=== PATIENT | female | born 1965 | race Caucasian/White ===

== ENCOUNTER 2019-04-13 09:55 | Emergency (ER) | payer OTHER, SELFPAY ==
[2019-04-13 10:43] VITALS: BP 162/90; PULSE 80; RESP 20; TEMP 36.4; O2SAT 97
--- NOTE | 2019-04-13 10:52 | ECG_ITS ---
Measurements Intervals [place] Rate: 69 P: 56 [place]: 146 QRS: 64 QRSD: 102 T: 60 QT: 391 QTc: 421 Interpretive Statements SINUS RHYTHM NORMAL ECG Electronically Signed On 04-14-2019 7:15:08 CDT by Jeffery Flores D.O.
[2019-04-13] MEDS: MECLIZINE HCL 25 MG TABLET PO (10:56)
[2019-04-13] MEDS: LORAZEPAM INJ 2 MG/ML VIAL 0.5 MG IV PUSH (10:57)
[2019-04-13 11:09] LABS: Hematocrit 36.6 % (35.0-49.0); Hemoglobin 12.7 g/dL (12.0-15.0); Mean Corpuscular HGB Conc 34.7 g/dL (32.0-36.0); Mean Corpuscular Hemoglobin 29.3 pg (27.0-31.0); Mean Corpuscular Volume 84.5 fL (78.0-102.0); Mean Platelet Volume 8.7 fl (9.2-11.8); Platelet Count Result 308 K/mm3 (150-420); Red Blood Count 4.33 M/mm3 (4.20-5.40); Red Cell Distribution Width 12.4 % (11.6-14.4); White Blood Count 5.4 K/mm3 (4.8-10.8)
[2019-04-13 11:25] LABS: Alanine Aminotransferase 27 U/L (14-59); Albumin Level 3.9 g/dL (3.4-5.0); Alkaline Phosphatase 143 U/L (46-116); Anion Gap 9.8 mmol/L (7-16); Aspartate Amino Transferase 21 U/L (15-37); Bilirubin,Total 0.4 mg/dL (0.00-1.00); Blood Urea Nitrogen 7 mg/dL (7-18); Calcium 9.3 mg/dL (8.5-10.1); Carbon Dioxide 28 mmol/L (21-32); Chloride 97 mmol/L (98-108); Estimated Glomerular Filt Rate > 60; Glucose 96 mg/dL (70-99); Osmolality Calculated 270 mOsm/kg (285-295); Potassium 3.8 mmol/L (3.5-5.1); Sodium 131 mmol/L (136-145); Total Protein 7.4 g/dL (6.4-8.2)
--- NOTE | 2019-04-13 11:41 | ED.GENADULT ---
HPI - General Adult General Chief complaint: Neuro Symptoms/Deficit Stated complaint: dizzy, headache, blurred vision Source: patient Mode of arrival: ambulatory Limitations: no limitations History of Present Illness HPI narrative: Patient presents with history of anxiety depression and while going to [employer] today had an episode where she felt faint with dizziness with hand tingling. Patient has been under increased stress secondary to situation with her daughter. Currently there is some dizziness and anxiety which has improved with meclizine and with Ativan. There is no chest pain or chest tightness, there is no fever chills no nasal discharge no abdominal pain no dysuria no flank pain no diarrhea constipation. Patient also complaining of mild headache with some dizziness with no nausea or vomiting. Onset (ago): hour(s) Location: head and upper extremity Radiation: non-radiation Severity: mild Quality: burning Pain Consistency: intermittent and other (dizziness) Relieving factors: immobilization Exacerbating factors: movement Associated symptoms: headaches Related Data Home Medications Medication Instructions Recorded Confirmed albuterol sulfate 1 - 2 puff INHALATION Q4-5H PRN 04/13/19 04/13/19 alprazolam 1 mg PO PRN PRN 04/13/19 04/13/19 furosemide 20 mg PO DAILY 04/13/19 04/13/19 lisinopril 20 mg PO DAILY 04/13/19 04/13/19 olanzapine 10 mg PO DAILY 04/13/19 04/13/19 omeprazole magnesium [Prilosec OTC] 20 mg PO DAILY 04/13/19 04/13/19 oxcarbazepine 1,200 mg PO DAILY 04/13/19 04/13/19 Allergies Allergy/AdvReac Type Severity Reaction Status Date / Time No Known Allergies Allergy Unknown Verified 04/22/07 07:20 Review of Systems Review of Systems: All systems reviewed & are unremarkable except as noted in HPI and below PMFSH Past Medical History Medical History Anxiety Depression Exam Const: General: no acute distress Orientation/consciousness: patient oriented x3 HENMT: Head: normal to inspection Eyes: Pupils: Equal, round and reactive pupils present Neck: Neck: normal visual inspection Chest: Chest palpation & inspection: normal inspection of the chest Resp: Effort & Inspection: normal respiratory effort Cardio: Rate: regular rate Rhythm: regular rhythm GI: GI Palp: Yes Soft to palpation : General: Yes no CVA tenderness Skin: General skin exam: normal color Rashes: no rashes Neuro: General: patient oriented x3, moves all extremities and no meningeal signs Extrem: General: normal to inspection Course Vital Signs Vital signs: Vital Signs Temperature 36.4 C 04/13/19 10:43 Pulse Rate 80 04/13/19 10:43 Respiratory Rate 20 04/13/19 10:43 Blood Pressure 162/90 H 04/13/19 10:43 Pulse Oximetry 97 04/13/19 10:43 Temperature 36.4 C 04/13/19 10:43 Pulse Rate 80 04/13/19 10:43 Respiratory Rate 20 04/13/19 10:43 Blood Pressure 162/90 H 04/13/19 10:43 Pulse Oximetry 97 04/13/19 10:43 Medical Decision Making Vital Signs Vital Signs: Vital Signs Temperature 36.4 C 04/13/19 10:43 Pulse Rate 80 04/13/19 10:43 Respiratory Rate 20 04/13/19 10:43 Blood Pressure 162/90 H 04/13/19 10:43 Pulse Oximetry 97 04/13/19 10:43 Temperature 36.4 C 04/13/19 10:43 Pulse Rate 80 04/13/19 10:43 Respiratory Rate 20 04/13/19 10:43 Blood Pressure 162/90 H 04/13/19 10:43 Pulse Oximetry 97 04/13/19 10:43 Lab Data Result diagrams: 04/13/19 11:05 04/13/19 11:05 Labs: Lab Results 04/13/19 04/13/19 Range/Units 11:05 11:05 WBC 5.4 (4.8-10.8) K/mm3 RBC 4.33 (4.20-5.40) M/mm3 Hgb 12.7 (12.0-15.0) g/dL Hct 36.6 (35.0-49.0) % MCV 84.5 (78.0-102.0) fL MCH 29.3 (27.0-31.0) pg MCHC 34.7 (32.0-36.0) g/dL RDW 12.4 (11.6-14.4) % Plt Count 308 (150-420) K/mm3 MPV 8.7 L (9.2-11.8) fl Sodium 131 L (136-145) mm
[2019-04-13 12:14] VITALS: BP 134/72; PULSE 74; O2SAT 99
== END 2019-04-13 12:15 | disposition home or self-care (01) ==
PROVIDERS: Emergency Provider Emergency Medicine; PCP Physician Assistant
DX: F32.9 Major depressive disorder, single episode, unspecified (principal); F41.9 Anxiety disorder, unspecified; R42 Dizziness and giddiness
CPT/HCPCS: 36415; 80053; 85027; 93005; 96374; 99283; 99284; A9270; J2060

== ENCOUNTER 2019-04-18 17:39 | Emergency (ER) | payer OTHER, SELFPAY ==
--- NOTE | ~2019-04-18 | CT_ITS ---
EXAMINATION: CT BRAIN W/O DATE: 04/18/2019 18:29 INDICATION: Dizziness. Left arm tingling. Headache. TECHNIQUE: Computed tomography (CT) of the head was performed without intravenous contrast. The dose- length product was 605.33 mGy-cm. Automated exposure control and iterative reconstruction technique w ere employed. COMPARISON: CT dated 06/28/2027 FINDINGS: Normal brain parenchymal volume for age. Normal frank-white differentiation. No acute intrac ranial hemorrhage, infarction, mass or mass effect. No ventriculomegaly or midline shift. Midline sagittal images demonstrate a normal corpus callosum, c raniovertebral junction and sella turcica. Basilar cisterns are patent. Paranasal sinuses and mastoids are pneumatized. No depressed skull fractures. IMPRESSION: 1. No acute intracranial abnormality. Reviewed, dictated and finalized at location A.
--- NOTE | ~2019-04-18 | XR_ITS ---
XR chest 2V 04/18/2019 18:29 Indication: Dizziness. Shortness of breath. COPD. Procedure: 2 view chest Comparison: Comparison to multiple prior studies sequentially, with oldest reviewed study dated 11/06. Findings: Heart size normal. Bibasilar atelectasis. No focal pneumonia, pulmonary edema, pleural effu sheryl or pneumothorax. No acute osseous abnormality. Impression: 1: Bibasilar atelectasis. Reviewed, dictated and finalized at location A. Impression: 1: Bibasilar atelectasis.
[2019-04-18 17:53] VITALS: BP 134/88; PULSE 90; RESP 24; TEMP 36.6; O2SAT 97
--- NOTE | 2019-04-18 18:06 | ECG_ITS ---
Measurements Intervals [place] Rate: 77 P: 34 [place]: 150 QRS: -6 QRSD: 96 T: 45 QT: 375 QTc: 427 Interpretive Statements SINUS RHYTHM BORDERLINE R WAVE PROGRESSION, ANTERIOR LEADS BORDERLINE T WAVE ABNORMALITY- ANTERIOR LEADS BASELINE ARTIFACT- I, II, III, AVR, AVL, AVF BORDERLINE ECG Electronically Signed On 04-19-2019 10:20:37 CDT by Jeffery Flores D.O.
--- NOTE | 2019-04-18 18:09 | ED.GENADULT ---
HPI - General Adult General Chief complaint: Psychiatric Symptoms Stated complaint: lightheaded/tingling in arm/numbness in arm Time Seen by Provider: 04/18/19 17:45 Source: patient Mode of arrival: ambulatory Limitations: no limitations History of Present Illness HPI narrative: Palma is a 53-year-old female patient. She presents ambulatory to the emergency room. She states that she has been feeling dizzy. She was seen here a week ago for similar symptoms and was given prescription for meclizine 25 mg p.o. t.i.d. p.r.n.. She states that she has been taking this once or twice a day. 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 She had numbness to both arms with some tingling. Her PCP is Rhianna Shepard. Rhianna has scheduled Palma for a CT of the head next Sunday. We will get it done now. She also complained of some chest discomfort which is not there anymore. She denies any blurred vision or diplopia. She has no abdominal pain. There is no nausea or vomiting. No cough or fever. She states that she has not traveled anywhere. She has no sick contacts. No urinary symptoms. Palma has history of asthma and COPD. She is a former smoker. She smoked 1 and half packs of cigarettes per day for 10 years. She stopped smoking 2 years ago. She has a history of drug abuse in the past. She quit about 10-15 years ago. She says that she used to use cocaine and she used it for 20 years but quit about 10-15 years ago. She has had a cholecystectomy, tubal ligation, hysterectomy. She still has 1 ovary. 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 Please see details in HPI narrative) Radiation: non-radiation Severity: mild Quality: sharp Pain Consistency: intermittent Relieving factors: other ( spontaneous relief. No pain now.) Associated symptoms: other ( Please see HPI narrative for details) Related Data Home Medications Medication Instructions Recorded Confirmed albuterol sulfate 1 - 2 puff INHALATION Q4-5H PRN 04/13/19 04/18/19 alprazolam 1 mg PO PRN PRN 04/13/19 04/18/19 furosemide 20 mg PO DAILY 04/13/19 04/18/19 lisinopril 20 mg PO DAILY 04/13/19 04/18/19 olanzapine 10 mg PO DAILY 04/13/19 04/18/19 omeprazole magnesium [Prilosec OTC] 20 mg PO DAILY 04/13/19 04/18/19 oxcarbazepine 1,200 mg PO DAILY 04/13/19 04/18/19 Allergies Allergy/AdvReac Type Severity Reaction Status Date / Time No Known Allergies Allergy Unknown Verified 04/22/07 07:20 Review of Systems Review of Systems: All systems reviewed & are unremarkable except as noted in HPI and below Constitutional: Constitutional: Reports as per HPI, Reports no additional constitutional complaints, Denies chills, Denies fever(s) and Denies weakness Eyes: Eyes: Reports as per HPI, Reports no additional eye complaints and Denies change in vision ENT: Reports system reviewed and no additional complaints, except as documented, Denies dysphagia, Denies vertigo, Reports dizziness, Denies nasal congestion and Denies sore throat Cardiovascular: Cardiovascular: Reports as per HPI, Reports no additional cardiovascular complaints, Reports chest pain and Denies radiating jaw, neck or arm pain Respiratory: Respiratory: Reports as per HPI, Reports no additional respiratory complaints, Denies cough and Denies dyspnea Gastrointestinal: Gastrointestinal: Reports as per HPI, Reports no additional gastrointestinal complaints, Denies abdominal pain, Denies nausea and Denies vomiting Genitourinary: Genitourinary: Reports no additional female genitourinary complaints, Denies hematuria and Denies dysuria Musculoskeletal: Musculoskeletal: Reports no additional musculoskeletal complaints, Denies myalgias and Denies muscle cramps Integumentary/Breasts: Skin/Breast: Reports system reviewed and no additional complaints, except as docu, Denies erythema and Denies rash Neurologic: Reports system reviewed and no additional complaints, except as documented, Reports as per
[2019-04-18] MEDS: LORAZEPAM 1 MG TABLET PO (18:29)
[2019-04-18 18:36] LABS: Add Urine Microscopic? NO; Appearance Urine Clear (Clear); Bilirubin Urine Negative (Negative); Blood Urine Negative (Negative); Color Urine Yellow (Yellow); Glucose Urine UA Negative (Negative); Ketones Urine Negative (Negative); Leukocyte Esterase Ur Negative LEU/UL (Negative); Nitrate Urine Negative (Negative); Protein Urine Negative (Negative); Urobilinogen Urine 0.2 mg/dL (0.2-1.0)
[2019-04-18 18:41] LABS: Basophils Absolute Auto 0.01 K/mm3 (0.00-0.10); Basophils Percent Auto 0.2 % (0.0-1.0); Eosinophils Absolute Auto 0.15 K/mm3 (0.02-0.50); Eosinophils Percent Auto 2.3 % (1.0-6.0); Hemoglobin 12.9 g/dL (12.0-15.0); Immature Granulocyte Absolute 0.01 K/mm3 (0.00-0.00); Immature Granulocyte Percent A 0.2 % (0.0-0.0); Lymphocytes Absolute Auto 2.09 K/mm3 (1.10-4.50); Lymphocytes Percent Auto 31.7 % (18.0-42.0); Mean Corpuscular HGB Conc 35.8 g/dL (32.0-36.0); Mean Corpuscular Hemoglobin 29.9 pg (27.0-31.0); Mean Corpuscular Volume 83.3 fL (78.0-102.0); Mean Platelet Volume 9.4 fl (9.2-11.8); Monocytes Absolute Auto 0.54 K/mm3 (0.10-0.90); Monocytes Percent Auto 8.2 % (2.0-11.0); Neutrophils Absolute Auto 3.8 K/mm3 (1.7-7.2); Neutrophils Percent Auto 57.4 % (50.0-70.0); Platelet Count Result 368 K/mm3 (150-420); Red Blood Count 4.32 M/mm3 (4.20-5.40); Red Cell Distribution Width 12.6 % (11.6-14.4); White Blood Count 6.6 K/mm3 (4.8-10.8)
[2019-04-18 18:47] LABS: Partial Thromboplastin Time 31.6 SEC (22.3-31.6)
[2019-04-18 18:50] LABS: Influenza Control Valid (Valid)
[2019-04-18 18:51] LABS: Amphetamine Screen Urine Negative (Negative); Barbiturate Screen Urine Negative (Negative); Benzodiazepines Screen Urine Negative (Negative); Cannabinoid Screen Urine Positive (Negative); Cocaine Screen Urine Negative (Negative); Methadone Screen Urine Negative (Negative); Opiate Screen Urine Negative (Negative); Phencyclidine Screen Urine Negative (Negative)
[2019-04-18 18:52] LABS: BNP < 5.0 pg/mL (0-100)
[2019-04-18 19:00] LABS: Alanine Aminotransferase 23 U/L (14-59); Albumin Level 3.7 g/dL (3.4-5.0); Alkaline Phosphatase 136 U/L (46-116); Anion Gap 15.1 mmol/L (7-16); Aspartate Amino Transferase 18 U/L (15-37); Bilirubin,Total 0.1 mg/dL (0.00-1.00); Blood Urea Nitrogen 11 mg/dL (7-18); Carbon Dioxide 24 mmol/L (21-32); Chloride 96 mmol/L (98-108); Creatine Kinase 247 U/L (26-192); Estimated Glomerular Filt Rate > 60; Glucose 111 mg/dL (70-99); Osmolality Calculated 272 mOsm/kg (285-295); Potassium 4.1 mmol/L (3.5-5.1); Sodium 131 mmol/L (136-145); Total Protein 7.2 g/dL (6.4-8.2)
[2019-04-18 19:02] LABS: Magnesium 1.9 mg/dL (1.8-2.4); Thyroid Stimulating Hormone 0.83 uIU/mL (0.36-3.74); Troponin I < 0.02 ng/mL (0.00-0.056)
[2019-04-18 19:34] LABS: Erythrocyte Sedimentation Rate 24 mm/hr (0-20)
[2019-04-18] MEDS: SODIUM CHLORIDE 0.9% IV 1,000 ML 999 ML IV CONT (19:34)
[2019-04-18 20:32] VITALS: BP 110/70
== END 2019-04-18 20:33 | disposition home or self-care (01) ==
PROVIDERS: Emergency Provider Surgery; PCP Physician Assistant
DX: R42 Dizziness and giddiness (principal); F41.9 Anxiety disorder, unspecified; E87.1 Hypo-osmolality and hyponatremia; J44.9 Chronic obstructive pulmonary disease, unspecified; I10 Essential (primary) hypertension; Z87.891 Personal history of nicotine dependence
CPT/HCPCS: 36415; 70450; 71046; 80053; 80307; 81003; 82550; 82553; 83735; 83880; 84443; 84484; 85025; 85610; 85652; 85730; 87804; 93005; 96360; 99283; 99284; A9270; J7030

== ENCOUNTER 2019-07-25 07:53 | Outpatient (CLI) | payer OTHER, SELFPAY ==
--- NOTE | ~2019-07-25 | XR_ITS ---
EXAMINATION: XR barium swallow DATE: 07/25/2019 08:44 INDICATION: Dysphagia. TECHNIQUE: The patient drank thick barium, gas-producing crystals, and thin barium. Fluoroscopy of th e hypopharynx and esophagus was performed. Fluoroscopy exposure time was 0.8 minutes. The total numbe r of images was 270. The dose-area product was 2.36 Gy-cm^2. COMPARISON: None. FINDINGS: There is no mass or stricture of the esophagus. Esophageal motility is normal. There is no hiatal hernia. There was no gastroesophageal reflux with provocative maneuvers. IMPRESSION: 1. Normal esophagram. Reviewed, dictated and finalized at location A. IMPRESSION: 1. Normal esophagram.
== END 2019-07-25 07:54 | disposition home or self-care (01) ==
PROVIDERS: PCP Physician Assistant; Visit Provider Otolaryngology
DX: R13.10 Dysphagia, unspecified (principal)
CPT/HCPCS: 74220

== ENCOUNTER 2019-09-05 15:09 | Observation (INO) | payer OTHER, SELFPAY ==
--- NOTE | ~2019-09-05 | XR_ITS ---
XR chest 1V portable 09/05/2019 16:25 Indication: History of CHF. Weakness. Procedure: AP portable chest Comparison: Comparison to multiple prior studies sequentially, with oldest reviewed study dated 05/16. Findings: Heart size normal. No focal air space disease, pulmonary edema, pleural effusion or suspect ed pneumothorax. No acute osseous abnormality. Impression: 1: No acute cardiopulmonary disease. Reviewed, dictated and finalized at location A. Impression: 1: No acute cardiopulmonary disease.
--- NOTE | 2019-09-05 15:17 | ECG_ITS ---
Measurements Intervals [place] Rate: 72 P: 46 [place]: 156 QRS: 35 QRSD: 97 T: 45 QT: 385 QTc: 424 Interpretive Statements SINUS RHYTHM NORMAL ECG Electronically Signed On 09-05-2019 16:35:15 CDT by Jeffery Flores D.O.
[2019-09-05 15:20] VITALS: BP 125/81; PULSE 77; RESP 18; TEMP 36.7; O2SAT 99
[2019-09-05 15:24] LABS: Add Urine Microscopic? YES; Appearance Urine Clear (Clear); Bilirubin Urine Negative (Negative); Blood Urine Negative (Negative); Color Urine Yellow (Yellow); Glucose Urine UA Negative (Negative); Ketones Urine Negative (Negative); Leukocyte Esterase Ur Trace LEU/UL (Negative); Nitrate Urine Negative (Negative); Protein Urine Negative (Negative); Specific Grav Ur 1.015 (1.010-1.020); Urobilinogen Urine 0.2 mg/dL (0.2-1.0); pH Urine 6.5 (5.0-8.0)
--- NOTE | 2019-09-05 15:28 | ED.GENADULT ---
HPI - General Adult General Source: patient Mode of arrival: ambulatory Limitations: no limitations History of Present Illness HPI narrative: 54-year-old female with hypertension, GERD, Bipolar Disorder and hx of CHF has had postprandial watery diarrhea for the last 6 days unresponsive to Imodium. There has been no blood, mucous in the stool, floating or unusual odor. The last 3 days she has been very tired, lightheaded (no vertigo) made worse with standing. When she stands up she also sees stars. Early this morning she had an episode where she was cool and clammy that lasted for about 10 minutes. She has been drinking sweetened (non-diet) lemonade for the last week. She denies abdominal pain. She has been urinating less than her usual. Today she has a very mild tension pain in her head. She has had neck soreness since last p.m.. Related Data Home Medications Medication Instructions Recorded Confirmed albuterol sulfate 1 - 2 puff INHALATION Q4-5H PRN 04/13/19 09/05/19 alprazolam 1 mg PO PRN PRN 04/13/19 09/05/19 furosemide 20 mg PO DAILY 04/13/19 09/05/19 lisinopril 20 mg PO DAILY 04/13/19 09/05/19 olanzapine 10 mg PO DAILY 04/13/19 09/05/19 omeprazole magnesium [Prilosec OTC] 20 mg PO DAILY 04/13/19 09/05/19 oxcarbazepine 1,200 mg PO DAILY 04/13/19 09/05/19 Allergies Allergy/AdvReac Type Severity Reaction Status Date / Time No Known Allergies Allergy Unknown Verified 07/23/19 09:59 Review of Systems Constitutional: Constitutional: Denies chills and Denies fever(s) Eyes: Eyes: Reports no additional eye complaints ENT: Denies dysphagia, Denies nasal congestion and Denies sore throat Cardiovascular: Cardiovascular: Denies chest pain Respiratory: Respiratory: Reports cough (has occasional cough, chronic) and Denies dyspnea Gastrointestinal: Gastrointestinal: Denies abdominal pain, Denies nausea and Denies vomiting Genitourinary: Genitourinary: Denies dysuria Musculoskeletal: Musculoskeletal: Reports no additional musculoskeletal complaints Integumentary/Breasts: Skin/Breast: Denies rash Neurologic: Reports headache(s) Endocrine: Endocrine: Reports polydipsia PMFSH Past Medical History Medical History (Updated 09/06/19 @ 05:23 by Bryan Wheeler MD) Anxiety Asthma Congestive heart failure COPD (chronic obstructive pulmonary disease) Depression Hypertension Surgical History Surgical History History of cholecystectomy History of hysterectomy History of tubal ligation Family History Family History Father Heart disease Mother , Mother at age 60. Diabetes mellitus Social History Social History Smoking status: Former smoker Tobacco type: cigarettes Second hand tobacco smoke exposure: Yes Alcohol intake: never Substance use: never Substance use type: does not use Spiritual care concerns: No Exam Const: General: healthy appearing and no acute distress HENMT: Head: normal to inspection Mouth: Yes Normal oral and palatal mucosa present Eyes: Conjunctivae: conjunctival abnormality EOM: EOMs intact bilaterally Direct Ophthalmoscopy: no photophobia Neck: Neck: no lymphadenopathy Other: supple Chest: Chest palpation & inspection: normal inspection of the chest Resp: Auscultation: clear to auscultation bilaterally Cardio: Rate: regular rate Rhythm: regular rhythm Other: no JVD GI: GI Palp: No abdominal tenderness Auscultation: normal bowel sounds : General: Yes no CVA tenderness Back/Spine/Pelvis: Back: no CVA tenderness Skin: General skin exam: normal color Rashes: no rashes Neuro: General: patient oriented x3 and moves all extremities Extrem: General: normal to inspection and no edema Course Course Emergency Course: . Vital Signs Vital signs: Vital Signs Temperatur
[2019-09-05 15:32] LABS: Bacteria Urine Trace /hpf; RBC Urine None seen /hpf (0-2); Squamous Epithelial Cell Urine Moderate /hpf (Few); WBC Urine 0-3 /hpf (0-3)
[2019-09-05 15:45] VITALS: BP 116/70; PULSE 70
[2019-09-05 15:46] VITALS: BP 124/70; PULSE 80
[2019-09-05 16:04] LABS: Basophils Absolute Auto 0.02 K/mm3 (0.00-0.10); Basophils Percent Auto 0.3 % (0.0-1.0); Eosinophils Absolute Auto 0.07 K/mm3 (0.02-0.50); Hemoglobin 12.3 g/dL (12.0-15.0); Immature Granulocyte Absolute 0.02 K/mm3 (0.00-0.00); Immature Granulocyte Percent A 0.3 % (0.0-0.0); Lymphocytes Absolute Auto 1.83 K/mm3 (1.10-4.50); Lymphocytes Percent Auto 24.9 % (18.0-42.0); Mean Corpuscular HGB Conc 35.1 g/dL (32.0-36.0); Mean Corpuscular Hemoglobin 29.8 pg (27.0-31.0); Mean Corpuscular Volume 84.7 fL (78.0-102.0); Mean Platelet Volume 8.9 fl (9.2-11.8); Monocytes Absolute Auto 0.42 K/mm3 (0.10-0.90); Monocytes Percent Auto 5.7 % (2.0-11.0); Neutrophils Percent Auto 67.8 % (50.0-70.0); Platelet Count Result 312 K/mm3 (150-420); Red Blood Count 4.13 M/mm3 (4.20-5.40); Red Cell Distribution Width 11.9 % (11.6-14.4); White Blood Count 7.4 K/mm3 (4.8-10.8)
[2019-09-05] MEDS: LACTATED RINGERS 1,000 ML 500 ML IV CONT (16:18)
[2019-09-05 16:21] LABS: Alanine Aminotransferase 27 U/L (14-59); Albumin Level 3.6 g/dL (3.4-5.0); Alkaline Phosphatase 153 U/L (46-116); Anion Gap 8.9 mmol/L (7-16); Aspartate Amino Transferase 21 U/L (15-37); Bilirubin,Total 0.3 mg/dL (0.00-1.00); Blood Urea Nitrogen 10 mg/dL (7-18); Calcium 8.5 mg/dL (8.5-10.1); Carbon Dioxide 27 mmol/L (21-32); Chloride 91 mmol/L (98-108); Estimated Glomerular Filt Rate > 60; Glucose 84 mg/dL (70-99); Magnesium 1.5 mg/dL (1.8-2.4); Osmolality Calculated 254 mOsm/kg (285-295); Potassium 3.9 mmol/L (3.5-5.1); Sodium 123 mmol/L (136-145); Total Protein 6.9 g/dL (6.4-8.2); Troponin I < 0.02 ng/mL (0.00-0.056)
[2019-09-05 16:23] LABS: BNP 12.5 pg/mL (0-100)
[2019-09-05 16:45] LABS: Sodium Urine Random 52 mmol/L (20-110)
[2019-09-05 17:01] LABS: Thyroid Stimulating Hormone 0.63 uIU/mL (0.36-3.74)
[2019-09-05 17:50] VITALS: BP 140/82; PULSE 78; O2SAT 99
--- NOTE | 2019-09-05 17:51 | PC.NURSE ---
PT WAS ABLE TO PROVIDE STOOL SAMPLE, NORMAL BROWN COLOR SOFT APPEARANCE IN CONSISTENCY
[2019-09-05 18:25] VITALS: BMI 37.4
[2019-09-05] MEDS: SODIUM CHLORIDE 0.9% IV 1,000 ML 200 ML IV CONT (18:47)
[2019-09-05] MEDS: MAGNESIUM SULF 2 GM/WATER 50ML 2 GM/50 ML BAG IVPB (18:49)
--- NOTE | 2019-09-05 19:06 | PC.NURSE ---
lab aware of stool samples needed they claim they have enough from er and will add them
[2019-09-05 19:16] VITALS: BP 157/98; PULSE 82; RESP 18; TEMP 36.7; O2SAT 98
--- NOTE | 2019-09-05 19:33 | ADMGEN ---
Correction: Pt arrived at 1810. This patient, Palma Frost, was admitted to 2nd Floor Room 204-2. Patient/family oriented to hospital policies and general routines including ID bracelet, bed and alarms, visiting hours, pain management, procedures, bathroom and other care routines, personal items, smoking policy, room service/diet, and visiting hours. Valuables list has been completed. Pt is aware of fluid restriction. Information on how to activate the Rapid Response Team has been discussed. Patient/Family are encouraged to report perceived risks to care and to ask questions if they do not understand what they are told or what they should do.
[2019-09-06] VITALS: BP 103/70; PULSE 70; RESP 20; TEMP 36.4; O2SAT 98
[2019-09-06] MEDS: SODIUM CHLORIDE 0.9% IV 1,000 ML 200 ML IV CONT ×2 (00:24→05:24)
--- NOTE | 2019-09-06 02:22 | PC.NURSE ---
Awake, states can't sleep without Psych meds: Zyprexa, Xanax
--- NOTE | 2019-09-06 02:49 | PC.NURSE ---
Called Dr. Wheeler regarding pt's c/o not being able to sleep due to not getting her alprazolam and zyprexa.
--- NOTE | 2019-09-06 02:50 | PC.NURSE ---
Patient awake, states can't sleep because didn't have psych drugs. Discussed medications and need to monitor sodium level while taking Trilepta. Provided signs and symptoms of low sodium level. Mary Grace Pa RN informed of patient complaints.
--- NOTE | 2019-09-06 02:54 | PC.NURSE ---
New orders received and noted from Dr. Wheeler.
--- NOTE | 2019-09-06 03:34 | PC.NURSE ---
[facility] called to clarify orders.
--- NOTE | 2019-09-06 03:35 | PC.NURSE ---
Dr. Wheeler notified of [facility] pharmacy's call to clarify orders; Orders clarified.
[2019-09-06 03:46] VITALS: BP 121/66; PULSE 75; RESP 20; TEMP 36.5; O2SAT 98
[2019-09-06 06:03] LABS: Anion Gap 11.5 mmol/L (7-16); Blood Urea Nitrogen 7 mg/dL (7-18); Calcium 8.7 mg/dL (8.5-10.1); Carbon Dioxide 25 mmol/L (21-32); Chloride 102 mmol/L (98-108); Estimated CRCL calculation 98 ml/min; Estimated Glomerular Filt Rate > 60; Glucose 82 mg/dL (70-99); Magnesium 2.3 mg/dL (1.8-2.4); Osmolality Calculated 275 mOsm/kg (285-295); Potassium 4.5 mmol/L (3.5-5.1); Sodium 134 mmol/L (136-145)
--- NOTE | 2019-09-06 06:32 | PC.NURSE ---
Lispro held until after breakfast.
[2019-09-06 07:45] VITALS: BP 119/71; PULSE 67; RESP 20; TEMP 36.6; O2SAT 95
[2019-09-06] MEDS: ALPRAZolam 0.5 MG TABLET 1 MG PO (08:08)
--- NOTE | 2019-09-06 08:10 | PC.NURSE ---
xanax 1mg given, states hasn't slept since didn't get her evening xanax, no pain, no sob, fluids infusing, fluid restriction observed
[2019-09-06] MEDS: FUROSEMIDE 20 MG TABLET PO (09:04)
[2019-09-06] MEDS: PANTOPRAZOLE 40 MG TABLET PO (09:04)
[2019-09-06] MEDS: lisinopriL 20 MG TABLET PO (09:05)
[2019-09-06] MEDS: ENOXAPARIN 40 MG/0.4 ML SYRINGE SUB-Q (09:05)
--- NOTE | 2019-09-06 10:10 | PM.SD ---
Same Day Admit/Disch: HPI History of Present Illness Chief complaint: diarrhea, tired, dizzyness, seeing stars Narrative: Palma Frost is a 54 year old female Presented to [facility] ED for excessive diarrhea. Patient has a past medical history of anxiety asthma, congestive heart failure, COPD, depression, hypertension. according to the patient she diarrhea for the last 6 days that was not resolved with Imodium. As a result she has felt tired ,lightheaded and weak. She did note that her urine output had lessened since her diarrhea. Patient's vital sign 119/71, 67, 20, 97.7, 95%. on admission patient's sodium level was 123 her troponins were negative x2 magnesium was 1.5, sed rate slightly increased at 24, chest x-ray negative, stool workup was collected and is currently pending, EKG sinus rhythm with a heart rate of 75. Patient was admitted for IV hydration. Patient has not had any more episodes of diarrhea since admission her sodium is now improved at 134. she was admitted for dehydration and diarrhea which has resolved she will be discharged home today. Patient able to tolerate all meals , slept well and ambulate at baseline. Patient denies SOB, CP, palpitation, extremity numbness, lightheadness, dizziness, constipation, diarrhea, chills or fever. Patient agree that they are ready for discharge and discharge plan. [facility] Past Medical History Medical History (Updated 09/06/19 @ 10:18 by BHARATI Wang) Anxiety Asthma Congestive heart failure COPD (chronic obstructive pulmonary disease) Depression Hypertension Surgical History Surgical History History of cholecystectomy History of hysterectomy History of tubal ligation Family History Family History Father Heart disease Mother , Mother at age 60. Diabetes mellitus Social History Social History Smoking status: Former smoker Tobacco type: cigarettes Second hand tobacco smoke exposure: Yes Alcohol intake: never Substance use: never Substance use type: does not use Spiritual care concerns: No Same Day Admit/Disch: Med Pre-admit Medications Home Medications Medication Instructions Recorded Confirmed Type albuterol sulfate 1 - 2 puff INHALATION Q4-5H PRN 04/13/19 09/05/19 History alprazolam 1 mg PO PRN PRN 04/13/19 09/05/19 History furosemide 20 mg PO DAILY 04/13/19 09/05/19 History lisinopril 20 mg PO DAILY 04/13/19 09/05/19 History olanzapine 10 mg PO DAILY 04/13/19 09/05/19 History omeprazole magnesium [Prilosec OTC] 20 mg PO DAILY 04/13/19 09/05/19 History oxcarbazepine 1,200 mg PO DAILY 04/13/19 09/05/19 History Exam Narrative: Exam Narrative: General: A well-developed, well-nourished male sitting up in bed no acute distress. HEENT: Normocephalic, atraumatic. PERRL, EOMI. Sclerae anicteric. Oral mucosa moist. Oropharynx clear. Neck: Supple. Respiratory: Lungs are clear to auscultation bilaterally. Cardiovascular: Regular rate and rhythm with S1-S2. Gastrointestinal: Abdomen is soft, nontender, and nondistended with positive bowel sounds. No organomegaly. Skin: Warm, dry, and slightly pale.. No rash or lesions on limited exam. Extremities: No cyanosis, clubbing, or edema. Radial and pedal pulses intact. Neurological: Alert. Cranial nerves 2-12 are grossly intact. No gross focal deficits to casual conversation. Psychiatric: Pleasant and cooperative with normal mood and affect. Judgment and insight intact. DS: Data Data Completed and Pending Labs on day of discharge: Labs from last 24 hours 09/06/19 09/05/19 09/05/19 05:17 15:58 15:58 WBC RBC Hgb Hct MCV MCH MCHC RDW Plt Count MPV Immature Gran % (Auto) Neut % (Auto) Lymph % (Auto) [place] % (Auto) Eos % (Auto) Baso % (Auto) Lymph # (Auto) M
--- NOTE | 2019-09-06 10:34 | PC.NURSE ---
Patient reports just had x1 diarrhea stool, flushed, unable to verify what it looked like
--- NOTE | 2019-09-06 12:40 | PC.NURSE ---
Discharge instructions reviewed, no questions voiced
[2019-09-10 05:45] LABS: Osmolality, Urine 551 mOsm/kg (50-1200)
== END 2019-09-06 12:40 | disposition home or self-care (01) ==
LOC: CHSED 17:16 → CHS2ND 17:44
PROVIDERS: Admitting Provider Family Medicine; Emergency Provider Family Medicine; PCP Physician Assistant; Visit Provider Family Medicine
DX: E86.0 Dehydration (principal); E87.1 Hypo-osmolality and hyponatremia; I11.0 Hypertensive heart disease with heart failure; I50.9 Heart failure, unspecified; J44.9 Chronic obstructive pulmonary disease, unspecified; J45.909 Unspecified asthma, uncomplicated; K21.9 Gastro-esophageal reflux disease without esophagitis; F41.9 Anxiety disorder, unspecified; F31.9 Bipolar disorder, unspecified
CPT/HCPCS: 36415; 71045; 80048; 80053; 81001; 83735; 83880; 83935; 84300; 84443; 84484; 85025; 85027; 87045; 87046; 87324; 87427; 89055; 93005; 96360; 96361; 96365; 96372; 99285; A9270; G0378; G0379; J1650; J3475; J7030; J7120

== ENCOUNTER 2019-12-23 10:45 | Outpatient (CLI) | payer OTHER, SELFPAY ==
--- NOTE | ~2019-12-23 | XR_ITS ---
EXAMINATION: XR hip BI 2V w AP pelvis DATE: 12/23/2019 11:16 INDICATION: Chronic pelvic pain. TECHNIQUE: An anteroposterior view of the pelvis and 2 views of each hip were obtained. COMPARISON: None. FINDINGS: Bone alignment is normal. No fracture. There is mild lumbar spondylosis. There is a benign bone island in proximal right femur. There is mild osteoarthritis of the hips characterized by tiny m arginal osteophytes. IMPRESSION: 1. Mild osteoarthritis of the hips. Reviewed, dictated and finalized at location A. ING CAPTAIN
== END 2019-12-23 10:46 | disposition home or self-care (01) ==
LOC: CHSIMG 10:48
PROVIDERS: PCP Physician Assistant; Visit Provider Physician Assistant
DX: R10.2 Pelvic and perineal pain (principal)
CPT/HCPCS: 73521

== ENCOUNTER 2020-08-13 14:58 | Outpatient (CLI) | payer OTHER, SELFPAY ==
--- NOTE | ~2020-08-13 | CT_ITS ---
EXAMINATION:CT lung screening DATE: 08/13/2020 15:18 INDICATION: Personal history of tobacco dependence. TECHNIQUE: Computed tomography (CT) of the chest was performed without intravenous contrast. Automate d exposure control and iterative reconstruction technique were employed. The dose-length product (DLP ) was 265.11 mGy-cm. COMPARISON: Chest CT 07/02/2016 FINDINGS: There is mild atelectasis bilaterally. Calcified pulmonary nodules and calcified hilar lymp h nodes are consistent with old granulomatous disease. There are a few scattered nodules measuring up to 4 mm in left lower lobe. Airspace opacities obscured left lower lobe on the prior exam. There is a stable 5 mm nodule in right middle lobe. No pleural effusion. There is ectasia of ascending aorta m easuring 4.0 cm. The heart size is normal. No pericardial effusion. There is a small sliding hiatal h ernia. There are changes of cholecystectomy. There is mild thoracic spondylosis. There is severe cerv ical spondylosis. IMPRESSION: 1. Lung-RADS category 2: Benign appearance or behavior. Continue annual screening with noncontrast lo w-dose chest CT in 12 months. Reviewed, dictated and finalized at location A. IMPRESSION: 1. Lung-RADS category 2: Benign appearance or behavior. Continue annual screeni ng with noncontrast low-dose chest CT in 12 months.
== END 2020-08-13 14:59 | disposition home or self-care (01) ==
LOC: CHSLAB 15:00
PROVIDERS: PCP Nurse Practitioner Family; Visit Provider Nurse Practitioner Family
DX: Z12.2 Encounter for screening for malignant neoplasm of respiratory organs (principal); Z87.891 Personal history of nicotine dependence
CPT/HCPCS: 71271

== ENCOUNTER 2020-10-23 00:10 | Emergency (ER) | payer OTHER, SELFPAY ==
--- NOTE | ~2020-10-23 | XR_ITS ---
EXAMINATION: XR chest 1V portable INDICATION: Shortness of breath TECHNIQUE: Portable AP chest at 0043 hours COMPARISON: 09/05/2019 FINDINGS: The lungs are free of acute opacities. There is no pleural effusion or pneumothorax. The ca rdiomediastinal silhouette is normal. The visualized osseous structures are unremarkable IMPRESSION: 1. No acute cardiopulmonary abnormality. Reviewed, dictated and finalized at location A.
--- NOTE | 2020-10-23 00:12 | ECG_ITS ---
Measurements Intervals [place] Rate: 77 P: 58 [place]: 133 QRS: 33 QRSD: 94 T: 52 QT: 386 QTc: 439 Interpretive Statements SINUS RHYTHM BORDERLINE T WAVE ABNORMALITY- ANTERIOR LEADS BASELINE ARTIFACT- I, II, III, AVR, AVL, AVF, V4-V6 BORDERLINE ECG Electronically Signed On 10-24-2020 19:25:50 CDT by Jeffery Flores D.O.
[2020-10-23 00:14] VITALS: BP 121/70; PULSE 85; RESP 22; TEMP 37; O2SAT 94
--- NOTE | 2020-10-23 00:20 | PC.NURSE ---
just started new job, and i have been tired
--- NOTE | 2020-10-23 00:26 | ED.GENADULT ---
HPI - General Adult General Chief complaint: Shortness of Breath/Dyspnea Stated complaint: Shortness of Breath Source: patient Mode of arrival: ambulatory Limitations: no limitations History of Present Illness HPI narrative: Palma is a 55F with a PMH of CHF, COPD, Asthma, HTN and depression presented to the ED with SOB and chest pressure. It started a few hours ago with dinner. On the way home she started to have some mild SOB, cough, a slight chest pressure, a little nauseated and lightheaded. It is worse when she lays down. It feels like when she was diagnosed with CHF. Related Data Home Medications Medication Instructions Recorded Confirmed albuterol sulfate 1 - 2 puff INHALATION Q4-5H PRN 04/13/19 10/23/20 alprazolam 1 mg PO PRN PRN 04/13/19 10/23/20 furosemide 20 mg PO DAILY 04/13/19 10/23/20 lisinopril 20 mg PO DAILY 04/13/19 10/23/20 olanzapine 10 mg PO DAILY 04/13/19 10/23/20 omeprazole magnesium [Prilosec OTC] 20 mg PO DAILY 04/13/19 10/23/20 oxcarbazepine 1,200 mg PO DAILY 04/13/19 10/23/20 Allergies Allergy/AdvReac Type Severity Reaction Status Date / Time No Known Allergies Allergy Unknown Verified 07/23/19 09:59 Review of Systems Constitutional: Constitutional: Reports no additional constitutional complaints, Denies chills and Denies fever(s) Eyes: Eyes: Reports no additional eye complaints ENT: Reports system reviewed and no additional complaints, except as documented Cardiovascular: Cardiovascular: Reports as per HPI Respiratory: Respiratory: Reports as per HPI Gastrointestinal: Gastrointestinal: Reports no additional gastrointestinal complaints Genitourinary: Genitourinary: Reports no additional female genitourinary complaints Musculoskeletal: Musculoskeletal: Reports no additional musculoskeletal complaints Integumentary/Breasts: Skin/Breast: Reports system reviewed and no additional complaints, except as docu Neurologic: Reports system reviewed and no additional complaints, except as documented Psychiatric: Psychiatric: Reports no additional psychiatric complaints Endocrine: Endocrine: Reports no additional endocrine complaints Hematologic/Lymphatic: Hematologic/Lymphatic: Reports no additional hematologic/lymphatic complaints Allergic/Immunologic: Allergic/Immunologic: Reports no additional allergic/immunologic complaints PMFSH Past Medical History Medical History Anxiety Asthma Congestive heart failure COPD (chronic obstructive pulmonary disease) Depression Hypertension Surgical History Surgical History History of cholecystectomy History of hysterectomy History of tubal ligation Family History Family History Father Heart disease Mother , Mother at age 60. Diabetes mellitus Social History Social History Smoking status: Former smoker Tobacco type: cigarettes Second hand tobacco smoke exposure: Yes Alcohol intake: never Substance use: never Substance use type: does not use Spiritual care concerns: No Exam Const: General: no acute distress and alert; No confusion Orientation/consciousness: patient oriented x3 Limitations: No altered mental status HENMT: Head: normal to inspection Other: atraumatic Eyes: Conjunctivae: conjunctivae normal Pupils: Equal, round and reactive pupils present Neck: Neck: normal visual inspection Chest: Chest palpation & inspection: normal inspection of the chest Resp: Effort & Inspection: normal respiratory effort Other: bibasilar crackles Cardio: Rate: regular rate Rhythm: regular rhythm Heart sounds: no murmurs GI: Inspection: non-distended GI Palp: Yes Soft to palpation, No Tenderness to palpation present (GI) and No Guarding due to palpation present (GI) : General: N
[2020-10-23 00:45] LABS: Basophils Absolute Auto 0.01 K/mm3 (0.00-0.10); Basophils Percent Auto 0.1 % (0.0-1.0); Eosinophils Absolute Auto 0.19 K/mm3 (0.02-0.50); Eosinophils Percent Auto 2.8 % (1.0-6.0); Hemoglobin 12.5 g/dL (12.0-15.0); Immature Granulocyte Absolute 0.02 K/mm3 (0.00-0.00); Immature Granulocyte Percent A 0.3 % (0.0-0.0); Lymphocytes Absolute Auto 2.24 K/mm3 (1.10-4.50); Lymphocytes Percent Auto 32.5 % (18.0-42.0); Mean Corpuscular HGB Conc 32.1 g/dL (32.0-36.0); Mean Corpuscular Hemoglobin 28.8 pg (27.0-31.0); Mean Corpuscular Volume 89.9 fL (78.0-102.0); Mean Platelet Volume 9.8 fl (9.2-11.8); Monocytes Absolute Auto 0.26 K/mm3 (0.10-0.90); Monocytes Percent Auto 3.8 % (2.0-11.0); Neutrophils Absolute Auto 4.2 K/mm3 (1.7-7.2); Neutrophils Percent Auto 60.5 % (50.0-70.0); Platelet Count Result 316 K/mm3 (150-420); Red Blood Count 4.34 M/mm3 (4.20-5.40); Red Cell Distribution Width 13.1 % (11.6-14.4); White Blood Count 6.9 K/mm3 (4.8-10.8)
[2020-10-23] MEDS: ASPIRIN 81 MG CHEWABLE TABLET 324 MG PO (00:53)
[2020-10-23] MEDS: FUROSEMIDE INJ 40 MG/4 ML VIAL IV PUSH (00:54)
[2020-10-23 00:56] LABS: Prothrombin Time 10.2 Seconds (9.50-12.10)
[2020-10-23 01:04] LABS: Influenza Control Valid (Valid); SARS-CoV-2 Ag Negative (Negative)
[2020-10-23 01:05] LABS: Alanine Aminotransferase 28 U/L (14-59); Albumin Level 3.6 g/dL (3.4-5.0); Alkaline Phosphatase 138 U/L (46-116); Anion Gap 10 mmol/L (8-16); Aspartate Amino Transferase 21 U/L (15-37); Bilirubin,Total 0.2 mg/dL (0.00-1.00); Blood Urea Nitrogen 11 mg/dL (7-18); Calcium 8.7 mg/dL (8.5-10.1); Carbon Dioxide 29 mmol/L (21-32); Chloride 105 mmol/L (98-108); Estimated CRCL calculation 97 ml/min; Estimated Glomerular Filt Rate > 60; Glucose 148 mg/dL (70-99); NT Pro B Type Natriuretic Pept 43 pg/mL (0-125); Osmolality Calculated 300 mOsm/kg (285-295); Potassium 3.4 mmol/L (3.5-5.1); Sodium 144 mmol/L (136-145); Total Protein 7.3 g/dL (6.4-8.2)
[2020-10-23 01:06] LABS: Troponin I 4.5 ng/L (0.00-60.4)
[2020-10-23] MEDS: IPRATROPIUM 0.5 MG/ALBUTEROL SULFATE 2.5 MG AMPUL.NEB 3 ML INHALATION (01:13)
[2020-10-23] MEDS: SODIUM CHLORIDE 0.9% 3 ML NEB FOR INHALATION (01:13)
[2020-10-23 01:14] VITALS: PULSE 89; RESP 22; O2SAT 94
[2020-10-23 01:36] VITALS: BP 149/95; PULSE 79; RESP 18; O2SAT 99
[2020-10-23] MEDS: AZITHROMYCIN 250 MG TABLET 500 MG PO (01:38)
[2020-10-23] MEDS: ONDANSETRON INJ 4 MG/2 ML VIAL IV PUSH (01:39)
[2020-10-23] MEDS: predniSONE 20 MG TABLET 40 MG PO (01:39)
--- NOTE | 2020-10-23 02:19 | PC.NURSE ---
pt sleeping, family at side
[2020-10-23 02:25] VITALS: BP 128/99; PULSE 99; RESP 20; O2SAT 93
[2020-10-23 04:12] VITALS: BP 133/74; PULSE 84; RESP 18; O2SAT 92
[2020-10-23 04:28] LABS: Troponin I 4.4 ng/L (0.00-60.4)
[2020-10-23 04:48] VITALS: BP 138/80; PULSE 89; RESP 22; TEMP 36.1; O2SAT 94
== END 2020-10-23 04:50 | disposition home or self-care (01) ==
PROVIDERS: Emergency Provider Family Medicine; PCP Physician Assistant
DX: J44.1 Chronic obstructive pulmonary disease with (acute) exacerbation (principal); R07.9 Chest pain, unspecified; Z20.822 Contact with and (suspected) exposure to COVID-19
CPT/HCPCS: 36415; 71045; 80053; 83880; 84484; 85025; 85610; 87426; 87804; 93005; 94640; 96374; 96375; 99283; 99284; A9270; C9803; J1940; J2405; J7512

== ENCOUNTER 2020-11-14 10:41 | Emergency (ER) | payer OTHER, SELFPAY ==
[2020-11-14 11:00] VITALS: BP 116/79; PULSE 118; RESP 22; TEMP 37.7; O2SAT 96
[2020-11-14 11:26] LABS: Influenza Control Valid (Valid)
[2020-11-14 11:31] LABS: SARS-CoV-2 Ag Negative (Negative)
--- NOTE | 2020-11-14 11:33 | ED.URI ---
HPI - URI/Sore Throat General Chief Complaint: Upper Respiratory Infection Stated Complaint: SOB,body aches,headche,fever,weakness since 2am Time Seen by Provider: 11/14/20 11:34 History of Present Illness HPI Narrative: 55-year-old female patient presents to ER with complaints of nasal congestion, cough, fever and generalized body aches since 2:00 a.m. this morning. The patient states that she has been fully vaccinated for COVID and is not aware of anyobvious exposure. She states that the cough has been nonproductive. She did take ibuprofen at home. Patient states that her temperature was 102? at home. Patient has been a former smoker but has not smoked since last 5 years. She does have a history of COPD. She denies any unusual wheezing or difficulty breathing today. Patient denies any sore throat. Patient denies any ear pain. Related Data Home Medications Medication Instructions Recorded Confirmed albuterol sulfate 1 - 2 puff INHALATION Q4-5H PRN 04/13/19 10/23/20 alprazolam 1 mg PO PRN PRN 04/13/19 10/23/20 furosemide 20 mg PO DAILY 04/13/19 10/23/20 lisinopril 20 mg PO DAILY 04/13/19 10/23/20 olanzapine 10 mg PO DAILY 04/13/19 10/23/20 omeprazole magnesium [Prilosec OTC] 20 mg PO DAILY 04/13/19 10/23/20 Allergies Allergy/AdvReac Type Severity Reaction Status Date / Time No Known Allergies Allergy Unknown Verified 11/14/20 10:56 Review of Systems Review of Systems: All systems reviewed & are unremarkable except as noted in HPI and below Constitutional: Constitutional: Reports no additional constitutional complaints Eyes: Eyes: Reports no additional eye complaints ENT: Reports system reviewed and no additional complaints, except as documented, Reports as per HPI, Reports nasal congestion and Denies sore throat Cardiovascular: Cardiovascular: Reports no additional cardiovascular complaints Respiratory: Respiratory: Reports no additional respiratory complaints, Denies chest congestion, Reports cough, Denies dyspnea and Denies wheezing Gastrointestinal: Gastrointestinal: Reports no additional gastrointestinal complaints Genitourinary: Genitourinary: Reports no additional female genitourinary complaints Musculoskeletal: Musculoskeletal: Reports no additional musculoskeletal complaints Neurologic: Reports system reviewed and no additional complaints, except as documented Psychiatric: Psychiatric: Reports no additional psychiatric complaints Endocrine: Endocrine: Reports no additional endocrine complaints Hematologic/Lymphatic: Hematologic/Lymphatic: Reports no additional hematologic/lymphatic complaints Allergic/Immunologic: Allergic/Immunologic: Reports no additional allergic/immunologic complaints PMFSH Past Medical History Medical History Anxiety Asthma Congestive heart failure COPD (chronic obstructive pulmonary disease) Depression Hypertension Surgical History Surgical History History of cholecystectomy History of hysterectomy History of tubal ligation Family History Family History Father Heart disease Mother , Mother at age 60. Diabetes mellitus Social History Social History Smoking status: Former smoker Tobacco type: cigarettes Second hand tobacco smoke exposure: Yes Alcohol intake: never Substance use: never Substance use type: does not use Spiritual care concerns: No Exam Const: General: healthy appearing, no acute distress and alert Nutritional Appearance: well nourished and obese Orientation/consciousness: patient oriented x3 HENMT: Head: normal to inspection Ears: external ears normal General nose exam: Normal external nose present Mouth: Yes Normal oral and palatal mucosa present and Yes moist mucous membranes Throat: posterior oropharyn
[2020-11-14 12:03] VITALS: BP 109/67; PULSE 100; RESP 20; O2SAT 94
== END 2020-11-14 12:03 | disposition home or self-care (01) ==
LOC: CHSED 10:43
PROVIDERS: Emergency Provider Emergency Medicine; PCP Physician Assistant
DX: J06.9 Acute upper respiratory infection, unspecified (principal); Z20.822 Contact with and (suspected) exposure to COVID-19
CPT/HCPCS: 87426; 87804; 99282; 99283; C9803

== ENCOUNTER 2021-02-18 15:10 | Outpatient (CLI) | payer OTHER, SELFPAY ==
[2021-02-18 15:46] LABS: SARS-CoV-2 Ag Negative (Negative)
[2021-02-19 23:20] LABS: SARS-CoV-2 RNA PCR Negative
== END 2021-02-18 15:11 | disposition home or self-care (01) ==
LOC: CHSLAB 15:13
PROVIDERS: PCP Nurse Practitioner Family; Visit Provider Nurse Practitioner Family
DX: Z20.822 Contact with and (suspected) exposure to COVID-19 (principal)
CPT/HCPCS: 87426; C9803; U0003; U0005

== ENCOUNTER 2021-04-04 20:15 | Emergency (ER) | payer OTHER, SELFPAY ==
[2021-04-04 20:28] VITALS: BP 140/87; PULSE 74; RESP 20; TEMP 36.1; O2SAT 98
--- NOTE | 2021-04-04 20:58 | ED.EXTPRO ---
HPI - Extremity Problem General Chief complaint: Extremity Problem,Nontraumatic Stated complaint: swelling in ankles Source: patient Mode of arrival: ambulatory Limitations: no limitations History of Present Illness HPI Narrative: 55-year-old female with history of CHF and remote history of a pulmonary embolism presents with with bilateral lower extremity edema right greater than left with some right lower extremity throbbing and calf pain with no shortness of breath her vital signs are stable O2 sats are stable there is no fever chills no chest pain no abdominal pain no known injury does have a history of CHF and she has taken medication for her CHF but has not had lower extremity swelling and while. Complaint: extremity pain Onset (ago): day(s) Pain Consistency: constant Severity scale (1-10): 6 Related Data Home Medications Medication Instructions Recorded Confirmed albuterol sulfate 1 - 2 puff INHALATION Q4-5H PRN 04/13/19 04/04/21 alprazolam 1 mg PO PRN PRN 04/13/19 04/04/21 furosemide 20 mg PO DAILY 04/13/19 04/04/21 lisinopril 20 mg PO DAILY 04/13/19 04/04/21 olanzapine 10 mg PO DAILY 04/13/19 04/04/21 omeprazole magnesium [Prilosec OTC] 20 mg PO DAILY 04/13/19 04/04/21 Allergies Allergy/AdvReac Type Severity Reaction Status Date / Time No Known Allergies Allergy Unknown Verified 04/04/21 20:42 Review of Systems Review of Systems: All systems reviewed & are unremarkable except as noted in HPI and below PMFSH Past Medical History Medical History Anxiety Asthma Congestive heart failure COPD (chronic obstructive pulmonary disease) Depression Hypertension Surgical History Surgical History History of cholecystectomy History of hysterectomy History of tubal ligation Family History Family History Father Heart disease Mother , Mother at age 60. Diabetes mellitus Social History Social History Smoking status: Former smoker Tobacco type: cigarettes Second hand tobacco smoke exposure: Yes Alcohol intake: never Substance use: never Substance use type: does not use Spiritual care concerns: No Exam Const: General: no acute distress Orientation/consciousness: patient oriented x3 HENMT: Head: normal to inspection Eyes: Conjunctivae: conjunctivae normal Pupils: Equal, round and reactive pupils present Neck: Neck: normal visual inspection Chest: Chest palpation & inspection: normal inspection of the chest Resp: Effort & Inspection: normal respiratory effort Cardio: Rate: regular rate Rhythm: regular rhythm GI: GI Palp: Yes Soft to palpation : General: Yes no CVA tenderness Urinary Catheter: Urinary Catheter: patent and draining Back/Spine/Pelvis: Back: no CVA tenderness Neuro: General: patient oriented x3 Extrem: General: normal to inspection and no pedal edema Other: Peripheral edema with some right lower extremity calf tenderness with palpation Psych: Mental Status: mental status grossly normal Course Course Emergency Course: patient had blood work and reviewed with patient, patient started on Eliquis given a 5mg dose and advised to follow-up with her primary for ultrasound in the morning. Critical Care Time Critical Care Time Critical Care Time: No Discharge Plan Discharge Clinical Impression: Lower extremity edema Patient Disposition: Home, Self-Care Condition: Stable Instructions: Antibiotic Form, Leg Edema (ED) Additional Instructions: advised to follow-up with primary in the morning to have ultrasound of her right lower extremity performed to rule out a DVT Prescriptions: New potassium chloride 20 mEq tablet extended release 20 meq PO BID 3 Days Qty: 6 RF: 0 No Action alprazolam 1 mg t
[2021-04-04 21:15] LABS: Basophils Absolute Auto 0.03 K/mm3 (0.00-0.10); Basophils Percent Auto 0.5 % (0.0-1.0); Eosinophils Absolute Auto 0.18 K/mm3 (0.02-0.50); Eosinophils Percent Auto 2.9 % (1.0-6.0); Hematocrit 36.1 % (35.0-49.0); Hemoglobin 11.9 g/dL (12.0-15.0); Immature Granulocyte Absolute 0.01 K/mm3 (0.00-0.00); Immature Granulocyte Percent A 0.2 % (0.0-0.0); Lymphocytes Absolute Auto 2.27 K/mm3 (1.10-4.50); Lymphocytes Percent Auto 36.9 % (18.0-42.0); Mean Corpuscular Hemoglobin 29.1 pg (27.0-31.0); Mean Corpuscular Volume 88.3 fL (78.0-102.0); Mean Platelet Volume 9.8 fl (9.2-11.8); Monocytes Absolute Auto 0.43 K/mm3 (0.10-0.90); Neutrophils Absolute Auto 3.2 K/mm3 (1.7-7.2); Neutrophils Percent Auto 52.5 % (50.0-70.0); Platelet Count Result 266 K/mm3 (150-420); Red Blood Count 4.09 M/mm3 (4.20-5.40); Red Cell Distribution Width 13.1 % (11.6-14.4); White Blood Count 6.2 K/mm3 (4.8-10.8)
[2021-04-04] MEDS: APIXABAN 2.5 MG TABLET 5 MG PO (21:17)
[2021-04-04] MEDS: KETOROLAC (*BKC) 60 MG/2 ML VIAL IM (21:19)
[2021-04-04 21:39] LABS: Alanine Aminotransferase 35 U/L (14-59); Albumin Level 3.3 g/dL (3.4-5.0); Alkaline Phosphatase 122 U/L (46-116); Anion Gap 8 mmol/L (8-16); Aspartate Amino Transferase 19 U/L (15-37); Bilirubin,Total 0.3 mg/dL (0.00-1.00); Blood Urea Nitrogen 11 mg/dL (7-18); Calcium 8.7 mg/dL (8.5-10.1); Carbon Dioxide 31 mmol/L (21-32); Chloride 106 mmol/L (98-108); Estimated CRCL calculation 103 ml/min; Estimated Glomerular Filt Rate > 60; Glucose 109 mg/dL (70-99); Osmolality Calculated 300 mOsm/kg (285-295); Potassium 3.1 mmol/L (3.5-5.1); Sodium 145 mmol/L (136-145); Total Protein 6.5 g/dL (6.4-8.2)
[2021-04-04 21:40] LABS: NT Pro B Type Natriuretic Pept 43 pg/mL (0-125)
[2021-04-04] MEDS: POTASSIUM CHLORIDE 20 MEQ TABLET 40 MEQ PO (21:49)
[2021-04-04 22:19] VITALS: BP 139/92; PULSE 67; RESP 20; TEMP 36.3; O2SAT 97
== END 2021-04-04 22:25 | disposition home or self-care (01) ==
PROVIDERS: Emergency Provider Emergency Medicine; PCP Nurse Practitioner Family
DX: R60.0 Localized edema (principal)
CPT/HCPCS: 36415; 80053; 83880; 85025; 96372; 99283; A9270; J1885

== ENCOUNTER 2021-04-14 09:49 | Outpatient (CLI) | payer OTHER, SELFPAY ==
--- NOTE | ~2021-04-14 | US_ITS ---
EXAMINATION: US venous doppler LE RT EXAM DATE: 04/14/2021 10:11 INDICATION: Right leg pain and swelling. TECHNIQUE: Multiple grayscale, color flow and Doppler images of the right lower extremity deep venous system were obtained and reviewed. There is no prior study for comparison. FINDINGS: The right common femoral, femoral and profunda veins demonstrate normal color flow, respira tory variation, augmentation and compressibility. Compressibility, color flow confirmed within the r ight popliteal, posterior tibial, peroneal, and greater saphenous veins. IMPRESSION: No right lower extremity deep venous thrombosis. Reviewed, dictated and finalized at location A. [facility] [employer]
== END 2021-04-14 09:50 | disposition home or self-care (01) ==
LOC: CHSIMG 09:51
PROVIDERS: PCP Physician Assistant; Visit Provider Physician Assistant
DX: M79.604 Pain in right leg (principal)
CPT/HCPCS: 93971

== ENCOUNTER 2021-06-01 22:18 | Emergency (ER) | payer OTHER, SELFPAY ==
--- NOTE | ~2021-06-01 | CT_ITS ---
EXAMINATION: CT diagnostic chest wo con DATE: 06/01/2021 22:54 INDICATION: Chest pain TECHNIQUE: Computed tomography (CT) of the chest was performed without intravenous contrast. The dose -length product (DLP) was 467.79 mGy-cm. Automated exposure control and iterative reconstruction tech nique were employed. COMPARISON: 08/13/2020 FINDINGS: The lungs are free of acute opacities. There is no pleural effusion or pneumothorax. There are stable lung nodules. No pathologically enlarged thoracic lymph nodes are identified. The heart si ze is normal. No displaced rib fracture is identified. There is mild thoracic spondylosis. There is a small sliding hiatal hernia. IMPRESSION: 1. No acute cardiopulmonary abnormality or evidence of displaced rib fracture. Reviewed, dictated and finalized at location F.
[2021-06-01 22:29] VITALS: BP 129/75; PULSE 76; RESP 18; TEMP 36.5; O2SAT 95
--- NOTE | 2021-06-01 22:35 | ED.CHESTPAIN ---
HPI - Chest Pain General Chief Complaint: Unspecified Stated Complaint: pain in LT side Source: patient History of Present Illness HPI narrative: 56-year-old female, ex-smoker with a history of COPD/asthma, hypertension, CHF, pulmonary embolism slipped and fell on her left lower ribs today afternoon at 2:00 p.m. She presents to the ER with -- left lower chest wall pain made worse by deep breathing, coughing or change of position. No head injury. No spinal injury/pain MD complaint: chest pain Onset (ago): hour(s) ( fell 8 hours ago) Timing of current episode: constant Prior episodes: No Onset: during exertion and other ( present with a deep breath) Pain location: left chest Pain radiation: none Severity: moderate Quality: sharp Relieving factors: nothing Exacerbating factors: exertion and inspiration Treatment prior to arrival: none Risk Factors Coronary artery disease risk factors: smoking history and hypertension Pulmonary embolism risk factors: history of pulmonary embolism and morbid obesity Related Data Home Medications Medication Instructions Recorded Confirmed albuterol sulfate 1 - 2 puff INHALATION Q4-5H PRN 04/13/19 06/01/21 alprazolam 1 mg PO PRN PRN 04/13/19 06/01/21 furosemide 20 mg PO DAILY 04/13/19 06/01/21 lisinopril 20 mg PO DAILY 04/13/19 06/01/21 olanzapine 10 mg PO DAILY 04/13/19 06/01/21 omeprazole magnesium [Prilosec OTC] 20 mg PO DAILY 04/13/19 06/01/21 atorvastatin 40 mg PO DAILY 06/01/21 06/01/21 fluoxetine 40 mg PO DAILY 06/01/21 06/01/21 Allergies Allergy/AdvReac Type Severity Reaction Status Date / Time No Known Allergies Allergy Unknown Verified 06/01/21 22:33 Review of Systems Review of Systems: All systems reviewed & are unremarkable except as noted in HPI and below Constitutional: Constitutional: Reports as per HPI and Reports no additional constitutional complaints Eyes: Eyes: Reports as per HPI and Reports no additional eye complaints ENT: Reports system reviewed and no additional complaints, except as documented and Reports as per HPI Cardiovascular: Cardiovascular: Reports as per HPI and Reports no additional cardiovascular complaints Respiratory: Respiratory: Reports as per HPI and Reports no additional respiratory complaints Comments: left lower chest wall pain including the left upper abdomen Gastrointestinal: Gastrointestinal: Reports as per HPI and Reports no additional gastrointestinal complaints Genitourinary: Genitourinary: Reports no additional female genitourinary complaints Musculoskeletal: Musculoskeletal: Reports no additional musculoskeletal complaints and Reports as per HPI Integumentary/Breasts: Skin/Breast: Reports system reviewed and no additional complaints, except as docu and Reports as per HPI Comments: no bruising of the left lower chest wall Neurologic: Reports system reviewed and no additional complaints, except as documented and Reports as per HPI Psychiatric: Psychiatric: Reports no additional psychiatric complaints and Reports as per HPI Endocrine: Endocrine: Reports no additional endocrine complaints and Reports as per HPI Hematologic/Lymphatic: Hematologic/Lymphatic: Reports no additional hematologic/lymphatic complaints and Reports as per HPI Allergic/Immunologic: Allergic/Immunologic: Reports no additional allergic/immunologic complaints and Reports as per HPI PMFSH Past Medical History Medical History Anxiety Asthma Congestive heart failure COPD (chronic obstructive pulmonary disease) Depression Hypertension Surgical History Surgical History History of cholecystectomy History of hysterectomy History of tubal ligation Family History Family History Father Heart disease Mother , Mother at age 60. Diabetes mellitus Social History Social Histo
[2021-06-01] MEDS: KETOROLAC 30 MG/ML VIAL (*BKC) IM (22:47)
[2021-06-01 23:12] VITALS: BP 122/77; PULSE 69; O2SAT 95
[2021-06-01 23:28] VITALS: BP 126/75; PULSE 88; RESP 16; TEMP 36.6; O2SAT 95
[2021-06-01] MEDS: HYDROcodone/acetaminophen (*CRX) 5-325 MG TABLET 1 TAB PO (23:28)
== END 2021-06-01 23:29 | disposition home or self-care (01) ==
PROVIDERS: Emergency Provider Internal Medicine Critical Care Medicine; PCP Physician Assistant
DX: R07.89 Other chest pain (principal); W19.XXXA Unspecified fall, initial encounter
CPT/HCPCS: 71250; 96372; 99284; A9270; J1885

== ENCOUNTER 2021-06-24 19:30 | Emergency (ER) | payer OTHER, SELFPAY ==
--- NOTE | ~2021-06-24 | CT_ITS ---
EXAMINATION: CT chest abdomen pelvis w con DATE: 06/24/2021 20:41 INDICATION: Left chest and abdominal pain. Fall 3 weeks ago. TECHNIQUE: Computed tomography (CT) of the chest, abdomen, and pelvis was performed with 100 mL Omnip aque 300 intravenous contrast. Automated exposure control and iterative reconstruction technique were employed. The dose-length product was 1896.92 mGy-cm. COMPARISON: Chest CT 06/01/2021 FINDINGS: CHEST CT: The lungs demonstrate mild atelectasis. There is a small right pleural effusion. The heart size is no rmal. No pericardial effusion. Calcified left hilar lymph nodes are consistent with old granulomatous disease. There is a small sliding hiatal hernia. There is mild thoracic spondylosis. ABDOMEN/PELVIS CT: The liver and spleen are normal. There are changes of cholecystectomy. The pancreas and adrenal gland s are normal. There is cortical thinning of the kidneys. There are cysts in the kidneys measuring up to 18 mm on the right. There are no dilated loops of bowel. The appendix is not visualized. There is an umbilical hernia containing fat. There are no pathologically enlarged lymph nodes. There is no neha e intraperitoneal fluid. There are old healed fractures of the inferior and superior pubic rami. Ther e is a benign bone island in left pelvis. There is mild lumbar spondylosis. IMPRESSION: 1. Small right pleural effusion. 2. Umbilical hernia containing fat. 3. Small sliding hiatal hernia. Reviewed, dictated and finalized at location A.
[2021-06-24 19:35] VITALS: BP 147/81; PULSE 88; RESP 18; TEMP 36.5; O2SAT 96
--- NOTE | 2021-06-24 19:39 | ED_ITS ---
HPI - Abdominal Pain General Stated Complaint: LT side pain Time Seen by Provider: 06/24/21 19:40 Source: patient and RN notes reviewed Mode of arrival: ambulatory Limitations: no limitations History of Present Illness MD elicited complaint: abdominal pain Location: [facility] Related Data Home Medications Medication Instructions Recorded Confirmed albuterol sulfate 1 - 2 puff INHALATION Q4-5H PRN 04/13/19 06/01/21 alprazolam 1 mg PO PRN PRN 04/13/19 06/01/21 furosemide 20 mg PO DAILY 04/13/19 06/01/21 lisinopril 20 mg PO DAILY 04/13/19 06/01/21 olanzapine 10 mg PO DAILY 04/13/19 06/01/21 omeprazole magnesium [Prilosec OTC] 20 mg PO DAILY 04/13/19 06/01/21 atorvastatin 40 mg PO DAILY 06/01/21 06/01/21 fluoxetine 40 mg PO DAILY 06/01/21 06/01/21 Allergies Allergy/AdvReac Type Severity Reaction Status Date / Time No Known Allergies Allergy Unknown Verified 06/01/21 22:33 [facility] Past Medical History Medical History Anxiety Asthma Congestive heart failure COPD (chronic obstructive pulmonary disease) Depression Hypertension Surgical History Surgical History History of cholecystectomy History of hysterectomy History of tubal ligation Family History Family History Father Heart disease Mother , Mother at age 60. Diabetes mellitus Social History Social History Smoking status: Former smoker Tobacco type: cigarettes Second hand tobacco smoke exposure: Yes Alcohol intake: never Substance use: never Substance use type: does not use Spiritual care concerns: No Discharge Plan Discharge Prescriptions: No Action alprazolam 1 mg tablet 1 mg PO PRN PRN (Reason: Anxiety) RF: 0 lisinopril 20 mg tablet 20 mg PO DAILY RF: 0 olanzapine 10 mg tablet 10 mg PO DAILY RF: 0 furosemide 20 mg tablet 20 mg PO DAILY RF: 0 albuterol sulfate 90 mcg/actuation HFA aerosol inhaler 1 - 2 puff INHALATION Q4-5H PRN (Reason: Wheezing) RF: 0 omeprazole magnesium [Prilosec OTC] 20 mg Tablet,Delayed Release (Dr/Ec) 20 mg PO DAILY RF: 0 potassium chloride 20 mEq tablet extended release 20 meq PO BID 3 Days Qty: 6 RF: 0 fluoxetine 40 mg capsule 40 mg PO DAILY RF: 0 atorvastatin 40 mg tablet 40 mg PO DAILY RF: 0 hydrocodone-acetaminophen 5-325 mg tablet 1 tablet PO Q8H PRN (Reason: pain) Qty: 14 RF: 0
--- NOTE | 2021-06-24 19:48 | ED.FALL ---
HPI - Fall General Chief Complaint: Fall Stated Complaint: LT side pain Time Seen by Provider: 06/24/21 19:40 Source: patient and RN notes reviewed Mode of arrival: ambulatory Limitations: no limitations History of Present Illness HPI Narrative: patient states she was here 3 weeks ago after a fall she sustained onto her left lower ribs. She had a CT scan which showed no fracture. She has missed intermittently 5 days of work and she continues to have pain left lower ribcage. Worse with deep breaths worse with movement. complaint: fall Onset (ago): week(s) (3) Fall from: standing Place fall occurred: home Loss of consciousness: none Prolonged down time: no Context: tripped/slipped Location of injury: chest (left lower ribs) Severity: moderate Quality: sharp, stabbing and aching Associated symptoms (after fall): other ( Hurts to take a deep breath) Related Data Home Medications Medication Instructions Recorded Confirmed albuterol sulfate 1 - 2 puff INHALATION Q4-5H PRN 04/13/19 06/24/21 alprazolam 1 mg PO PRN PRN 04/13/19 06/24/21 furosemide 20 mg PO DAILY 04/13/19 06/24/21 lisinopril 20 mg PO DAILY 04/13/19 06/24/21 olanzapine 10 mg PO DAILY 04/13/19 06/24/21 omeprazole magnesium [Prilosec OTC] 20 mg PO DAILY 04/13/19 06/24/21 atorvastatin 40 mg PO DAILY 06/01/21 06/24/21 fluoxetine 40 mg PO DAILY 06/01/21 06/24/21 Allergies Allergy/AdvReac Type Severity Reaction Status Date / Time No Known Allergies Allergy Unknown Verified 06/24/21 20:08 Review of Systems Review of Systems: All systems reviewed & are unremarkable except as noted in HPI and below PMFSH Past Medical History Medical History Anxiety Asthma Congestive heart failure COPD (chronic obstructive pulmonary disease) Depression Hypertension Surgical History Surgical History History of cholecystectomy History of hysterectomy History of tubal ligation Family History Family History Father Heart disease Mother , Mother at age 60. Diabetes mellitus Social History Social History Smoking status: Former smoker Tobacco type: cigarettes Second hand tobacco smoke exposure: Yes Alcohol intake: never Substance use: never Substance use type: does not use Spiritual care concerns: No Exam Const: General: healthy appearing, no acute distress and alert Nutritional Appearance: well nourished and obese morbidly obese Orientation/consciousness: patient oriented x3 HENMT: Head: normal to inspection Ears: external ears normal Eyes: Conjunctivae: conjunctivae normal Pupils: Equal, round and reactive pupils present EOM: EOMs intact bilaterally Neck: Neck: normal visual inspection Chest: Chest palpation & inspection: tenderness (severe) rib left anterior-axillary line involving the 10th rib and involving the 11th rib Resp: Effort & Inspection: normal respiratory effort Auscultation: clear to auscultation bilaterally Cardio: Rate: regular rate Rhythm: regular rhythm GI: GI Palp: Yes Soft to palpation and No Tenderness to palpation present (GI) Auscultation: normal bowel sounds Back/Spine/Pelvis: Cervical Spine: cervical ROM normal Thoracic/Lumbar Spine: thoraco-lumbar ROM normal Skin: General skin exam: normal color Rashes: no rashes Neuro: General: patient oriented x3, moves all extremities, no focal motor deficits and CN's II-XI intact bilaterally Speech: normal speech Gait exam (Neuro): Normal gait present Extrem: General: normal to inspection and no clubbing, cyanosis or edema Psych: Appearance: grossly normal Mental Status: mental status grossly normal Affect: normal affect Attitude: cooperative Thought content: Yes Normal thought content present Course Vital Signs Vital signs: Vital Sig
[2021-06-24 20:01] LABS: Basophils Absolute Auto 0.01 K/mm3 (0.00-0.10); Basophils Percent Auto 0.2 % (0.0-1.0); Eosinophils Absolute Auto 0.25 K/mm3 (0.02-0.50); Hematocrit 35.7 % (35.0-49.0); Hemoglobin 11.7 g/dL (12.0-15.0); Immature Granulocyte Absolute 0.01 K/mm3 (0.00-0.00); Immature Granulocyte Percent A 0.2 % (0.0-0.0); Lymphocytes Absolute Auto 2.17 K/mm3 (1.10-4.50); Lymphocytes Percent Auto 34.8 % (18.0-42.0); Mean Corpuscular HGB Conc 32.8 g/dL (32.0-36.0); Mean Corpuscular Hemoglobin 28.9 pg (27.0-31.0); Mean Corpuscular Volume 88.1 fL (78.0-102.0); Mean Platelet Volume 9.9 fl (9.2-11.8); Monocytes Percent Auto 6.4 % (2.0-11.0); Neutrophils Absolute Auto 3.4 K/mm3 (1.7-7.2); Neutrophils Percent Auto 54.4 % (50.0-70.0); Platelet Count Result 298 K/mm3 (150-420); Red Blood Count 4.05 M/mm3 (4.20-5.40); Red Cell Distribution Width 12.7 % (11.6-14.4); White Blood Count 6.2 K/mm3 (4.8-10.8)
[2021-06-24 20:11] LABS: Anion Gap 8 mmol/L (8-16); Blood Urea Nitrogen 9 mg/dL (7-18); Calcium 8.8 mg/dL (8.5-10.1); Carbon Dioxide 29 mmol/L (21-32); Chloride 111 mmol/L (98-108); Estimated Glomerular Filt Rate > 60; Glucose 134 mg/dL (70-99); Osmolality Calculated 306 mOsm/kg (285-295); Potassium 3.5 mmol/L (3.5-5.1); Sodium 148 mmol/L (136-145)
[2021-06-24] MEDS: KETOROLAC 30 MG/ML VIAL (*BKC) IV PUSH (20:47)
[2021-06-24 21:12] VITALS: BP 137/86; PULSE 74; RESP 16; TEMP 36.6; O2SAT 97
== END 2021-06-24 21:15 | disposition home or self-care (01) ==
PROVIDERS: Emergency Provider Emergency Medicine; PCP Physician Assistant
DX: S20.212D Contusion of left front wall of thorax, subsequent encounter (principal); I50.9 Heart failure, unspecified; J44.9 Chronic obstructive pulmonary disease, unspecified; I10 Essential (primary) hypertension; F41.9 Anxiety disorder, unspecified; F32.A Depression, unspecified; W19.XXXD Unspecified fall, subsequent encounter; Z87.891 Personal history of nicotine dependence
CPT/HCPCS: 36415; 71260; 74177; 80048; 85025; 96372; 99284; J1885; Q9967

== ENCOUNTER 2021-07-15 07:56 | Outpatient (CLI) | payer OTHER, SELFPAY ==
--- NOTE | ~2021-07-15 | MM_ITS ---
EXAMINATION: MM screening mireya BI w leeanna HISTORY: Screening mammogram TECHNIQUE: Craniocaudal and mediolateral oblique 3-D tomosynthesis images were obtained and synthetic 2-D images were generated. CAD analysis was submitted and interpreted. COMPARISON: No prior mammogram is available for comparison at this institution. BREAST PARENCHYMAL COMPOSITION: There are scattered areas of fibroglandular density. FINDINGS: There is no suspicious mass, calcification, or architectural distortion to suggest malignan cy in either breast. IMPRESSION: 1. No mammographic evidence of malignancy. 2. Recommend routine screening mammography in one year. BI-RADS Category 1: Negative Reviewed, dictated and finalized at location A.
== END 2021-07-15 07:57 | disposition home or self-care (01) ==
LOC: CHSIMG 07:57
PROVIDERS: PCP Physician Assistant; Visit Provider Nurse Practitioner
DX: Z12.31 Encounter for screening mammogram for malignant neoplasm of breast (principal)
CPT/HCPCS: 77063; 77067

== ENCOUNTER 2021-08-29 08:47 | Emergency (ER) | payer OTHER, SELFPAY ==
--- NOTE | ~2021-08-29 | CT_ITS ---
EXAMINATION: CTA chest PE protocol DATE: 08/29/2021 12:08 CDT INDICATION: Chest pain. TECHNIQUE: Computed tomographic angiography (CTA) of the chest was performed with 100 mL Omnipaque-35 0 intravenous contrast. The dose-length product was 1580.42 mGy-cm. Maximum intensity projection 3D-r econstructions of the aorta and other arteries were constructed by the technologist on a separate wor kstation. Automated exposure control and iterative reconstruction technique were employed. COMPARISON: CT dated 06/24/2021. FINDINGS: The study is technically adequate without evidence for pulmonary embolism. Borderline heart size. No significant pleural or pericardial effusion. No thoracic lymphadenopathy. Small hiatal harsha ia. The upper abdomen is unremarkable. No endobronchial lesions. There is right middle lobe and lingu lar atelectasis/scarring. There are calcified granulomas of the left lung base. There are calcified l eft hilar lymph nodes, consistent with chronic granulomatous disease. There is a 3-4 mm left upper lo be nodule. There is a 3 mm pleural-based left upper lobe nodule, image 29. No endobronchial lesions. IMPRESSION: 1. No evidence for pulmonary embolism. 2: Lingular and right middle lobe atelectasis/scarring. 3: Left-sided pulmonary nodules measuring 4 mm or less, likely benign. Follow-up low dose CT chest i n 12 months recommended. Reviewed, dictated and finalized at location A. IMPRESSION: 1. No evidence for pulmonary embolism. 2: Lingular and right middle lobe atelectasis/scarring. 3: Left-sided pulmonary nodules measuring 4 mm or less, likely benign. Follow- up low dose CT chest in 12 months recommended.
--- NOTE | ~2021-08-29 | XR_ITS ---
EXAMINATION: XR chest 1V portable DATE: 08/29/2021 09:44 INDICATION: Chest pain radiating to the back TECHNIQUE: frontal view of the chest was obtained. COMPARISON: Chest radiograph dated 10/23/[address] dated 06/24/2021 FINDINGS: The lungs remain clear with no focal airspace opacities, pulmonary edema, pleural effusion or pneumot horax. The cardiomediastinal silhouette is normal. IMPRESSION: 1. No acute cardiopulmonary disease. Reviewed, dictated and finalized at location A.
[2021-08-29 08:50] VITALS: BP 133/71; PULSE 75; RESP 18; TEMP 36.4; O2SAT 97
[2021-08-29 09:00] VITALS: PULSE 75
--- NOTE | 2021-08-29 09:07 | ECG_ITS ---
Measurements Intervals [place] Rate: 67 P: CT: 0 QRS: 67 QRSD: 97 T: 65 QT: 398 QTc: 421 Interpretive Statements SINUS RHYTHM LOW QRS VOLTAGE IN LIMB LEADS BORDERLINE T WAVE ABNORMALITY- ANTERIOR LEADS BORDERLINE ECG Electronically Signed On 08-29-2021 12:21:37 CDT by Jeffery Flores D.O.
--- NOTE | 2021-08-29 09:09 | ED.GENADULT ---
HPI - General Adult General Chief complaint: Chest Pain Stated complaint: chest and back pain History of Present Illness HPI narrative: The patient is a 56-year-old woman with a history of CHF, hypertension, hyperlipidemia, COPD, bipolar affective disorder, GERD Apple and a prior history of pneumonia. She is status post cholecystectomy hysterectomy and a tubal ligation. She is vaccinated against COVID-19, 2 doses, plus the booster. She is an ex-smoker. She presents with onset of substernal pleuritic chest pain since 6:00 a.m. today, described as sharp, radiating to the back, on the left side of the chest, not radiating to the arm jaw neck or shoulders. It is pleuritic in nature, worse with deep breathing or coughing, and is sharp. Associated symptoms including include a cough productive of yellow sputum and nausea but no vomiting. She did have diaphoresis earlier today but no fevers or chills. No rhinorrhea or nasal congestion no abdominal pain or vomiting or urinary symptoms. Her father did have COVID last week. She took Ibuprofen at 7:30 am; 600 mg PO. Related Data Home Medications Medication Instructions Recorded Confirmed alprazolam 1 mg tablet 1 mg PO PRN PRN Anxiety 04/13/19 08/29/21 furosemide 20 mg tablet 20 mg PO DAILY 04/13/19 08/29/21 lisinopril 20 mg tablet 20 mg PO DAILY 04/13/19 08/29/21 olanzapine 10 mg tablet 10 mg PO DAILY 04/13/19 08/29/21 omeprazole magnesium 20 mg 20 mg PO DAILY 04/13/19 08/29/21 tablet,delayed release (Prilosec OTC) atorvastatin 40 mg tablet 40 mg PO DAILY 06/01/21 08/29/21 fluoxetine 40 mg capsule 40 mg PO DAILY 06/01/21 08/29/21 Allergies Allergy/AdvReac Type Severity Reaction Status Date / Time No Known Allergies Allergy Unknown Verified 08/29/21 08:56 Review of Systems Review of Systems: All systems reviewed & are unremarkable except as noted in HPI and below Constitutional: Constitutional: Reports no additional constitutional complaints, Denies anorexia, Denies body ache(s), Denies chills, Reports excessive sweating, Denies fatigue, Denies fever(s), Denies frequent falls, Denies headache(s), Denies malaise and Denies poor appetite Eyes: Eyes: Reports no additional eye complaints, Denies blurry vision, Denies change in vision, Denies irritation, Denies itchy eyes and Denies photophobia ENT: Reports system reviewed and no additional complaints, except as documented, Reports Normal hearing present, Denies change in voice, Denies dysphagia, Denies vertigo, Denies dizziness, Denies ear discharge, Denies headache(s), Denies hearing loss, Denies hoarseness, Denies nasal congestion, Denies neck pain, Denies sinus pressure, Denies sore throat and Denies throat swelling Cardiovascular: Cardiovascular: Reports no additional cardiovascular complaints, Reports chest pain, Denies syncope, Denies rapid heart rate, Denies irregular heart rhythm, Denies leg edema, Denies dyspnea and Denies slow heart rate Respiratory: Respiratory: Reports no additional respiratory complaints, Reports cough, Denies dyspnea, Denies stridor and Denies wheezing Gastrointestinal: Gastrointestinal: Reports no additional gastrointestinal complaints, Denies abdominal pain, Denies melena, Denies hematochezia, Denies dysphagia, Denies diarrhea, Reports nausea and Denies vomiting Genitourinary: Genitourinary: Denies hematuria, Denies urinary frequency, Denies dysuria, Denies flank pain and Denies urinary urgency Musculoskeletal: Musculoskeletal: Reports no additional musculoskeletal complaints, Denies abnormal gait, Reports back pain, Denies myalgias, Denies arthralgias, Denies joint swelling, Denies limited range of motion, Denies muscle cramps, Denies muscle weakness, Denies neck pain and Denies numbness Integumentary/Breasts: Skin/Breast: Reports system reviewed and no additional complaints, except as docu, Denies breast pain, Denies change in pigmentation, Denies pruritus, Denies erythema and Denies wounds Neurologic:
--- NOTE | 2021-08-29 09:11 | PC.NURSE ---
PCR sent to lab [id number]
[2021-08-29] MEDS: ACETAMINOPHEN 325 MG TABLET 975 MG PO (09:14)
[2021-08-29 09:31] LABS: Basophils Absolute Auto 0.01 K/mm3 (0.00-0.10); Basophils Percent Auto 0.2 % (0.0-1.0); Eosinophils Absolute Auto 0.38 K/mm3 (0.02-0.50); Eosinophils Percent Auto 6.6 % (1.0-6.0); Hematocrit 36.4 % (35.0-49.0); Hemoglobin 11.7 g/dL (12.0-15.0); Immature Granulocyte Absolute 0.02 K/mm3 (0.00-0.00); Immature Granulocyte Percent A 0.3 % (0.0-0.0); Lymphocytes Absolute Auto 1.77 K/mm3 (1.10-4.50); Lymphocytes Percent Auto 30.7 % (18.0-42.0); Mean Corpuscular HGB Conc 32.1 g/dL (32.0-36.0); Mean Corpuscular Hemoglobin 28.6 pg (27.0-31.0); Mean Platelet Volume 9.9 fl (9.2-11.8); Monocytes Absolute Auto 0.41 K/mm3 (0.10-0.90); Monocytes Percent Auto 7.1 % (2.0-11.0); Neutrophils Absolute Auto 3.2 K/mm3 (1.7-7.2); Neutrophils Percent Auto 55.1 % (50.0-70.0); Platelet Count Result 271 K/mm3 (150-420); Red Blood Count 4.09 M/mm3 (4.20-5.40); Red Cell Distribution Width 13.1 % (11.6-14.4); White Blood Count 5.8 K/mm3 (4.8-10.8)
[2021-08-29 09:48] LABS: SARS-CoV-2 RNA PCR Negative (Negative)
[2021-08-29 09:53] LABS: Lactic Acid Reflex 2.3 mmol/L (0.4-2.0)
[2021-08-29 10:02] LABS: Alanine Aminotransferase 27 U/L (14-59); Albumin Level 3.2 g/dL (3.4-5.0); Alkaline Phosphatase 135 U/L (46-116); Anion Gap 8 mmol/L (8-16); Aspartate Amino Transferase 17 U/L (15-37); Bilirubin,Total 0.3 mg/dL (0.00-1.00); Blood Urea Nitrogen 7 mg/dL (7-18); CRP 1.4 mg/dL (0.0-0.9); Calcium 8.6 mg/dL (8.5-10.1); Carbon Dioxide 28 mmol/L (21-32); Chloride 104 mmol/L (98-108); D Dimer 0.68 mg/L (0.19-0.50); Estimated CRCL calculation 106 ml/min; Estimated Glomerular Filt Rate > 60; Glucose 116 mg/dL (70-99); NT Pro B Type Natriuretic Pept 37 pg/mL (0-125); Osmolality Calculated 289 mOsm/kg (285-295); Potassium 3.7 mmol/L (3.5-5.1); Sodium 140 mmol/L (136-145); Total Protein 6.5 g/dL (6.4-8.2)
[2021-08-29 10:03] LABS: Troponin I 8.2 ng/L (0.00-60.4)
[2021-08-29 10:30] VITALS: BP 140/69; PULSE 78; PULSE 80; RESP 18; TEMP 36.6; O2SAT 98
[2021-08-29 10:33] LABS: Erythrocyte Sedimentation Rate 28 mm/hr (0-20)
[2021-08-29 11:30] VITALS: PULSE 81
[2021-08-29 11:50] LABS: Reflex Lactic Acid Yes or No No Lactic Reflex
[2021-08-29] MEDS: KETOROLAC 30 MG/ML VIAL (*BKC) IV PUSH (11:54)
[2021-08-29] MEDS: traMADol HCL (*CRX) 50 MG TABLET 100 MG PO (11:57)
[2021-08-29 12:00] VITALS: BP 129/70; PULSE 72; RESP 16; O2SAT 98
[2021-08-29 12:40] LABS: Lactic Acid Reflex 0.9 mmol/L (0.4-2.0); Troponin I 7.1 ng/L (0.00-60.4)
[2021-08-29 13:18] VITALS: BP 135/79; PULSE 75; RESP 16; TEMP 36.5; O2SAT 98
== END 2021-08-29 13:27 | disposition home or self-care (01) ==
PROVIDERS: Emergency Provider Emergency Medicine; PCP Physician Assistant
DX: R07.9 Chest pain, unspecified (principal); R05.9 Cough, unspecified; Z20.822 Contact with and (suspected) exposure to COVID-19; I50.9 Heart failure, unspecified; J44.9 Chronic obstructive pulmonary disease, unspecified; I10 Essential (primary) hypertension; Z87.891 Personal history of nicotine dependence
CPT/HCPCS: 36415; 71045; 71275; 80053; 83605; 83880; 84484; 85025; 85380; 85652; 86140; 93005; 96374; 99284; A9270; C9803; J1885; Q9967; U0003; U0005

== ENCOUNTER 2021-11-20 17:21 | Emergency (ER) | payer OTHER, SELFPAY ==
--- NOTE | 2021-11-20 17:28 | ED.FEVER ---
HPI - Fever General Chief Complaint: Fever Stated Complaint: fever since 3am Time Seen by Provider: 11/20/21 17:23 Source: patient and RN notes reviewed Mode of arrival: ambulatory Limitations: no limitations History of Present Illness HPI Narrative: patient started coughing 3 days ago then spiked a fever at 3:00 a.m. this morning. She was trying to wait it out C5 go away but she has severe body aches all over and other symptoms including sore throat, nausea, headache, nasal congestion. MD elicited complaint: fever Onset (ago): hour(s) (14) Measured temperature: 103.5 C Context: sick contacts ( Co-worker with COVID) Exacerbating factors: nothing Relieving factors: ibuprofen Associated symptoms: chills, myalgias, headache, nasal congestion, sore throat, cough and nausea Treatments prior to arrival fever: ibuprofen (At 9:30 AM) Related Data Home Medications Medication Instructions Recorded Confirmed alprazolam 1 mg tablet 1 mg PO PRN PRN Anxiety 04/13/19 10/03/21 lisinopril 20 mg tablet 20 mg PO DAILY 04/13/19 10/03/21 olanzapine 10 mg tablet 10 mg PO DAILY 04/13/19 10/03/21 omeprazole magnesium 20 mg 20 mg PO DAILY 04/13/19 10/03/21 tablet,delayed release (Prilosec OTC) atorvastatin 40 mg tablet 40 mg PO DAILY 06/01/21 10/03/21 fluoxetine 40 mg capsule 40 mg PO DAILY 06/01/21 10/03/21 Allergies Allergy/AdvReac Type Severity Reaction Status Date / Time No Known Allergies Allergy Unknown Verified 10/03/21 13:08 Review of Systems Review of Systems: All systems reviewed & are unremarkable except as noted in HPI and below PMFSH Past Medical History Medical History Anxiety Asthma Congestive heart failure COPD (chronic obstructive pulmonary disease) Depression Hypertension Surgical History Surgical History History of cholecystectomy History of hysterectomy History of tubal ligation Family History Family History Father Heart disease Mother , Mother at age 60. Diabetes mellitus Social History Social History Smoking status: Former smoker Tobacco type: cigarettes Second hand tobacco smoke exposure: Yes Alcohol intake: never Substance use: never Substance use type: does not use Spiritual care concerns: No Exam Const: General: healthy appearing, no acute distress and alert Nutritional Appearance: well nourished and obese morbidly obese Orientation/consciousness: patient oriented x3 Limitations: no limitations HENMT: Head: normal to inspection Ears: external ears normal Eyes: Conjunctivae: conjunctivae normal Pupils: Equal, round and reactive pupils present EOM: EOMs intact bilaterally Neck: Neck: normal visual inspection Resp: Effort & Inspection: normal respiratory effort Auscultation: clear to auscultation bilaterally Cardio: Rate: regular rate Rhythm: regular rhythm GI: GI Palp: Yes Soft to palpation and No Tenderness to palpation present (GI) Auscultation: normal bowel sounds Back/Spine/Pelvis: Cervical Spine: cervical ROM normal Thoracic/Lumbar Spine: thoraco-lumbar ROM normal Skin: General skin exam: normal color Rashes: no rashes Neuro: General: patient oriented x3, moves all extremities, no focal motor deficits and CN's II-XI intact bilaterally Speech: normal speech Gait exam (Neuro): Normal gait present Extrem: General: normal to inspection and no clubbing, cyanosis or edema Psych: Appearance: grossly normal and well kempt Mental Status: mental status grossly normal Affect: normal affect Attitude: cooperative Course Vital Signs Vital signs: Vital Signs Temperature 37.8 C H 11/20/21 17:41 Pulse Rate 107 H 11/20/21 17:41 Respiratory Rate 22 H 11/20/21 17:41 Blood Pressure 138/69 11/20/21 17:41 Pulse Oximetry 96
[2021-11-20 17:41] VITALS: BP 138/69; PULSE 107; RESP 22; TEMP 37.8; O2SAT 96
[2021-11-20 17:49] VITALS: RESP 22
[2021-11-20 18:16] LABS: Basophils Absolute Auto 0.02 K/mm3 (0.00-0.10); Basophils Percent Auto 0.2 % (0.0-1.0); Eosinophils Absolute Auto 0.08 K/mm3 (0.02-0.50); Eosinophils Percent Auto 0.6 % (1.0-6.0); Hematocrit 36.2 % (35.0-49.0); Hemoglobin 11.7 g/dL (12.0-15.0); Immature Granulocyte Absolute 0.06 K/mm3 (0.00-0.00); Immature Granulocyte Percent A 0.5 % (0.0-0.0); Lymphocytes Percent Auto 9.8 % (18.0-42.0); Mean Corpuscular HGB Conc 32.3 g/dL (32.0-36.0); Mean Corpuscular Hemoglobin 28.2 pg (27.0-31.0); Mean Corpuscular Volume 87.2 fL (78.0-102.0); Monocytes Absolute Auto 0.71 K/mm3 (0.10-0.90); Monocytes Percent Auto 5.3 % (2.0-11.0); Neutrophils Absolute Auto 11.2 K/mm3 (1.7-7.2); Neutrophils Percent Auto 83.6 % (50.0-70.0); Platelet Count Result 268 K/mm3 (150-420); Red Blood Count 4.15 M/mm3 (4.20-5.40); Red Cell Distribution Width 13.5 % (11.6-14.4); White Blood Count 13.3 K/mm3 (4.8-10.8)
[2021-11-20 18:30] LABS: Influenza A QL RT-PCR Negative (Negative); Influenza B QL RT-PCR Negative (Negative); SARS-CoV-2 RNA PCR Negative (Negative)
[2021-11-20 18:31] LABS: Alanine Aminotransferase 25 U/L (14-59); Albumin Level 3.3 g/dL (3.4-5.0); Alkaline Phosphatase 134 U/L (46-116); Anion Gap 7 mmol/L (8-16); Aspartate Amino Transferase 17 U/L (15-37); Bilirubin,Total 0.6 mg/dL (0.00-1.00); Blood Urea Nitrogen 9 mg/dL (7-18); CRP 10.6 mg/dL (0.0-0.9); Calcium 8.3 mg/dL (8.5-10.1); Carbon Dioxide 28 mmol/L (21-32); Chloride 104 mmol/L (98-108); Estimated CRCL calculation 104 ml/min; Estimated Glomerular Filt Rate > 60; Glucose 107 mg/dL (70-99); Osmolality Calculated 286 mOsm/kg (285-295); Potassium 3.6 mmol/L (3.5-5.1); Sodium 139 mmol/L (136-145); Total Protein 6.9 g/dL (6.4-8.2)
[2021-11-20 18:46] LABS: Lactic Acid Reflex 1.3 mmol/L (0.4-2.0)
[2021-11-20 18:55] VITALS: BP 126/72; PULSE 84; RESP 20; TEMP 37.6; O2SAT 96
--- NOTE | 2021-11-20 18:58 | PC.NURSE ---
On 11/20/21, the student, [ANNIE KILLIAN ], provided care and completed [facility] documentation on this patient. I have reviewed the student's documentation and agree with the findings.
== END 2021-11-20 18:59 | disposition home or self-care (01) ==
PROVIDERS: Emergency Provider Emergency Medicine; PCP Physician Assistant
DX: J06.9 Acute upper respiratory infection, unspecified (principal); Z20.822 Contact with and (suspected) exposure to COVID-19
CPT/HCPCS: 36415; 80053; 83605; 83735; 85025; 86140; 87502; 99283; C9803; U0003; U0005

== ENCOUNTER 2021-11-21 13:18 | Outpatient (CLI) | payer OTHER, SELFPAY ==
--- NOTE | 2021-11-21 13:21 | ECHO_ITS ---
Patient Info Name: Palma Frost Age: 56 years : 1965 Gender: Female Ht: 65 in Wt: 260 lbs BSA: 2.39 m2 HR: 87 bpm BP: 111 / 63 mmHg Heart Rhythm: Sinus Rhythm Technical Quality: Fair Exam Date: 11/21/2021 1:11 PM Exam Location: [facility] Patient Status: Outpatient Admit Date: 11/21/2021 Staff Ordering Physician: Jeffery Flores DO Internal Control Consultant: Janet Murphy RDCS Attending Provider: Jeffery Flores DO Referring Physician: Mark GAVIRIA; Exam Type: CA echo doppler color flow Study Info Indications R42 - Dizziness and giddiness Complete two-dimensional, color flow and Doppler transthoracic echocardiogram is performed. Summary 1. Complete two-dimensional, color flow and Doppler transthoracic echocardiogram is performed. 2. Left ventricular chamber dimension is normal. 3. Left ventricular systolic function is normal, estimated at 60-65%. 4. The left ventricular diastolic function is grade II diastolic dysfunction. 5. E/e' 11 is mildly elevated. 6. There is mild tricuspid valve regurgitation. 7. No pulmonary hypertension, estimated pulmonary arterial systolic pressure is 31 mmHg. Left Ventricle E/e' 11 is mildly elevated. Left ventricular chamber dimension is normal. Left ventricular systolic function is normal, estimated at 60-65%. The left ventricular diastolic function is grade II diastolic dysfunction. Right Ventricle Right ventricular systolic function is normal and with normal TAPSE 2.3 cm. Right ventricular chamber dimension is normal. Left Atria Left atrial chamber dimension is normal. Right Atria Right atrial chamber dimension is normal. Aortic Valve The aortic valve is trileaflet. There is no aortic valve stenosis. There is no aortic valve regurgitation. Pulmonic Valve There is no pulmonic regurgitation. Mitral Valve There is no mitral valve stenosis. There is no mitral valve regurgitation. Tricuspid Valve There is mild tricuspid valve regurgitation. No pulmonary hypertension, estimated pulmonary arterial systolic pressure is 31 mmHg. Pericardium/Pleural There is no pericardial effusion. Inferior Vena Cava Normal inferior vena cava with >50% collapse upon inspiration consistent with normal right atrial pressure, 5 mmHg. Aorta The aortic root size at the sinus of Valsalva is normal. Left Ventricular Outflow Tract Name Value Normal LVOT 2D LVOT Diameter 2.1 cm LVOT Doppler LVOT Peak Velocity 115 cm/s LVOT Peak Gradient 5 mmHg LVOT Mean Gradient 3 mmHg LVOT VTI 20 cm LVOT VTI/AV VTI Ratio 0.7 LVOT Stroke Volume 69 ml Pulmonic Valve Name Value Normal RVOT Doppler RVOT Peak Gradient 3 mmHg PV
== END 2021-11-21 13:19 | disposition home or self-care (01) ==
LOC: CHSIMG 13:19
PROVIDERS: PCP Physician Assistant; Visit Provider Internal Medicine Cardiovascular Disease
DX: R42 Dizziness and giddiness (principal)
CPT/HCPCS: 93306

== ENCOUNTER 2021-11-30 08:36 | Emergency (ER) | payer OTHER, SELFPAY ==
[2021-11-30] VITALS (36 sets, daily range): BP systolic 82–124; BP diastolic 50–90; PULSE 68–97; RESP 10–27; TEMP 36.4–37.4; O2SAT 93–98
--- NOTE | ~2021-11-30 | XR_ITS ---
XR chest 1V portable 11/30/2021 09:11 Indication: Dyspnea Procedure: AP portable chest Comparison: Comparison to multiple prior studies sequentially, with oldest reviewed study dated 04/17. Findings: Heart size is normal. There is bibasilar airspace disease, right greater than left. No sign ificant pleural effusion. No edema or pneumothorax. No acute osseous abnormality. Impression: 1: Bibasilar airspace disease, compatible with pneumonia. Reviewed, dictated and finalized at location B. Impression: 1: Bibasilar airspace disease, compatible with pneumonia.
--- NOTE | 2021-11-30 08:55 | ECG_ITS ---
Measurements Intervals [place] Rate: 90 P: 43 ID: 125 QRS: 46 QRSD: 95 T: 51 QT: 347 QTc: 426 Interpretive Statements SINUS RHYTHM LOW-VOLTAGE QRS IN PRECORDIAL LEADS BORDERLINE ECG COMPARED TO ECG 08/29/2021 08:53:31 NO SIGNIFICANT CHANGES Electronically Signed On 11-30-2021 16:20:25 CDT by Junior Blair M.D.
--- NOTE | 2021-11-30 08:56 | ED.GENADULT ---
HPI - General Adult General Chief complaint: Upper Respiratory Infection Stated complaint: SICK FOR A WEEK COUGH History of Present Illness HPI narrative: Palma is a 56F with a PMH of COPD, depression/anxiety, GERD, CHF and obesity that presented to the ED with 1.5 weeks of cough, congestion, SOB and fevers. There is no CP, lightheadedness or vomiting. She has been seen twice for this with steroids and she took a Z-pack with little effect. Related Data Home Medications Medication Instructions Recorded Confirmed alprazolam 1 mg tablet 1 mg PO PRN PRN Anxiety 04/13/19 11/30/21 lisinopril 20 mg tablet 20 mg PO DAILY 04/13/19 11/30/21 olanzapine 10 mg tablet 10 mg PO DAILY 04/13/19 11/30/21 omeprazole magnesium 20 mg 20 mg PO DAILY 04/13/19 11/30/21 tablet,delayed release (Prilosec OTC) atorvastatin 40 mg tablet 40 mg PO DAILY 06/01/21 11/30/21 fluoxetine 40 mg capsule 40 mg PO DAILY 06/01/21 11/30/21 albuterol sulfate 90 mcg/actuation 2 puff inhalation PRN PRN Wheezing 11/30/21 11/30/21 aerosol inhaler furosemide 20 mg tablet 20 mg PO DAILY 11/30/21 11/30/21 Allergies Allergy/AdvReac Type Severity Reaction Status Date / Time No Known Allergies Allergy Unknown Verified 11/30/21 08:51 Review of Systems Review of Systems: All systems reviewed & are unremarkable except as noted in HPI and below PMFSH Past Medical History Medical History Anxiety Asthma Congestive heart failure COPD (chronic obstructive pulmonary disease) Depression Hypertension Surgical History Surgical History History of cholecystectomy History of hysterectomy History of tubal ligation Family History Family History Father Heart disease Mother , Mother at age 60. Diabetes mellitus Social History Social History Smoking status: Former smoker Tobacco type: cigarettes Second hand tobacco smoke exposure: Yes Alcohol intake: never Substance use: never Substance use type: does not use Spiritual care concerns: No Exam Const: General: healthy appearing and no acute distress Nutritional Appearance: well nourished Orientation/consciousness: patient oriented x3 Limitations: no limitations HENMT: Head: normal to inspection Ears: external ears normal Face/Nose/Sinus: Normal external nose present Eyes: Conjunctivae: conjunctivae normal Pupils: Equal, round and reactive pupils present EOM: EOMs intact bilaterally Neck: Neck: normal visual inspection Chest: Chest palpation & inspection: normal inspection of the chest Resp: Effort & Inspection: normal respiratory effort Other: Diffuse wheezing with prolonged expiratory phase Cardio: Rate: regular rate Rhythm: regular rhythm GI: Inspection: distended GI Palp: Yes Soft to palpation, No Tenderness to palpation present (GI) and No Guarding due to palpation present (GI) Back/Spine/Pelvis: Back: no CVA tenderness Skin: General skin exam: normal color Rashes: no rashes Neuro: General: patient oriented x3 and moves all extremities Cranial nerves: Yes Nystagmus not present Extrem: General: normal to inspection Psych: Mental Status: mental status grossly normal Course Course Emergency Course: EKG showed NSR with a rate of 90, normal axis, no ST elevation/depression XR chest 1V portable 11/30/2021 09:11 Indication: Dyspnea Procedure: AP portable chest Comparison: Comparison to multiple prior studies sequentially, with oldest reviewed study dated? 04/18/2019. Findings: Heart size is normal. There is bibasilar airspace disease, right greater than left. No significant pleural effusion. No edema or pneumothorax. No acute osseous abnormality. Impression: 1: Bibasilar airspace disease, compatible with pneumonia. She was given le
[2021-11-30 09:18] LABS: Basophils Absolute Auto 0.02 K/mm3 (0.00-0.10); Basophils Percent Auto 0.1 % (0.0-1.0); Eosinophils Absolute Auto 0.02 K/mm3 (0.02-0.50); Eosinophils Percent Auto 0.1 % (1.0-6.0); Hematocrit 30.7 % (35.0-49.0); Hemoglobin 10.4 g/dL (12.0-15.0); Immature Granulocyte Absolute 0.05 K/mm3 (0.00-0.00); Immature Granulocyte Percent A 0.4 % (0.0-0.0); Mean Corpuscular HGB Conc 33.9 g/dL (32.0-36.0); Mean Corpuscular Hemoglobin 29.1 pg (27.0-31.0); Mean Platelet Volume 8.9 fl (9.2-11.8); Monocytes Absolute Auto 0.79 K/mm3 (0.10-0.90); Monocytes Percent Auto 5.8 % (2.0-11.0); Neutrophils Absolute Auto 10.8 K/mm3 (1.7-7.2); Neutrophils Percent Auto 79.6 % (50.0-70.0); Platelet Count Result 360 K/mm3 (150-420); Red Blood Count 3.57 M/mm3 (4.20-5.40); Red Cell Distribution Width 13.1 % (11.6-14.4); White Blood Count 13.6 K/mm3 (4.8-10.8)
[2021-11-30 09:40] LABS: Alanine Aminotransferase 37 U/L (14-59); Albumin Level 2.4 g/dL (3.4-5.0); Alkaline Phosphatase 109 U/L (46-116); Anion Gap 6 mmol/L (8-16); Aspartate Amino Transferase 20 U/L (15-37); Bilirubin,Total 0.5 mg/dL (0.00-1.00); Blood Urea Nitrogen 9 mg/dL (7-18); Calcium 8.5 mg/dL (8.5-10.1); Carbon Dioxide 32 mmol/L (21-32); Chloride 99 mmol/L (98-108); Estimated CRCL calculation 112 ml/min; Estimated Glomerular Filt Rate > 60; Glucose 124 mg/dL (70-99); Osmolality Calculated 283 mOsm/kg (285-295); Potassium 2.8 mmol/L (3.5-5.1); Sodium 137 mmol/L (136-145); Total Protein 6.7 g/dL (6.4-8.2); Troponin I 5.4 ng/L (0.00-60.4)
[2021-11-30 09:56] LABS: Influenza A QL RT-PCR Negative (Negative); Influenza B QL RT-PCR Negative (Negative); SARS-CoV-2 RNA PCR Negative (Negative)
[2021-11-30 10:01] LABS: NT Pro B Type Natriuretic Pept 82 pg/mL (0-125)
--- NOTE | 2021-11-30 10:08 | PC.NURSE ---
PT IS SITTING UP ON STRETCHER WATCHING TV AT THIS TIME. NAD NOTED. VSS PER MONITOR. WATER PROVIDED. PT IS AWAITING ERP DECISION. WILL CONTINUE TO MONITOR.
[2021-11-30] MEDS: SODIUM CHLORIDE 0.9% IV 500 ML 250 ML IV CONT (10:28)
[2021-11-30] MEDS: POTASSIUM CHLORIDE 20 MEQ TABLET 40 MEQ PO (10:29)
[2021-11-30] MEDS: KCL 20 MEQ/SW 100 ML 100 ML 50 MEQ IVPB (10:29)
[2021-11-30] MEDS: levoFLOXacin TAB 500 MG, levoFLOXacin TAB 250 MG 750 MG PO (10:30)
--- NOTE | 2021-11-30 10:32 | PC.NURSE ---
daughter was at bedside, to return in a couple hours due to pt getting k+ drip at this time. pt and daughter are aware of plan of care. vss per monitor. nad noted. will continue to monitor.
--- NOTE | 2021-11-30 10:42 | PC.NURSE ---
PT UNABLE TO TOLERATE INFUSION, k+ RATE TITRATED.
--- NOTE | 2021-11-30 11:10 | PC.NURSE ---
PT AMBULATORY TO RR WITHOUT DIFFICULTY. PT RETURNED TO EXAM ROOM WITH IV MEDICATIONS INFUSING WITHOUT DIFFICULTY. PT TOLERATING WELL. WILL CONTINUE TO MONITOR.
--- NOTE | 2021-11-30 11:49 | PC.NURSE ---
PT REPORTING THAT INFUSING IN BURNING AT THIS TIME. IV SITE FLUSHED AND ICE PACK APPLIED. PT TOLERATED WELL, REPORTS SX IMPROVED. WILL CONTINUE TO MONITOR.
[2021-11-30] MEDS: SODIUM CHLORIDE 0.9% IV 1,000 ML 1000 ML IV CONT (12:19)
--- NOTE | 2021-11-30 12:19 | PC.NURSE ---
pt reporting burning again, 500ml has infused, erp is aware and 1000ml bolus ordered. pt is now tolerating infusion. will continue to monitor.
--- NOTE | 2021-11-30 13:05 | PC.NURSE ---
PT UP TO RR, DAUGHTER HAS RETURNED. PT TOLERATING INFUSION WELL. NAD NOTED. WILL CONTINUE TO MONITOR.
--- NOTE | 2021-11-30 19:04 | PC.NURSE ---
PT CALLS REPORTING N-V POST DC. ERP IS NOTIFIED AND ZOFRAN 4MG ODT Q 8 HOURS #10 NO REFILLS VO PER DR SALAZAR IS CALLED INTO [facility] REQUESTED PER PT.
== END 2021-11-30 13:20 | disposition home or self-care (01) ==
PROVIDERS: Emergency Provider Family Medicine; PCP Physician Assistant
DX: J18.9 Pneumonia, unspecified organism (principal); E87.6 Hypokalemia; Z20.822 Contact with and (suspected) exposure to COVID-19
CPT/HCPCS: 36415; 71045; 80053; 83880; 84484; 85025; 87502; 93005; 96365; 96366; 99284; A9270; J3480; J7030; J7040; U0003; U0005

== ENCOUNTER 2021-12-01 04:02 | Emergency (ER) | payer OTHER, SELFPAY ==
[2021-12-01] VITALS (21 sets, daily range): BP systolic 89–145; BP diastolic 56–86; PULSE 84–107; RESP 14–26; TEMP 36.2–36.8; O2SAT 88–98
--- NOTE | ~2021-12-01 | CT_ITS ---
EXAMINATION: CTA chest PE protocol DATE: 12/01/2021 05:06 INDICATION: Shortness of breath and cough TECHNIQUE: Computed tomography (CT) pulmonary angiogram of the chest was performed with 100 mL Omnipa que-350 intravenous contrast. Additional 3D reconstructions utilizing coronal maximum intensity proje ction (MIP) were performed. Automated exposure control and iterative reconstruction technique were em ployed. The dose-length product was 1678.91 mGy-cm. COMPARISON: 08/29/2021 FINDINGS: . contrast opacification of the pulmonary arteries. There is mild streak artifact from dense contrast in the superior vena cava and right atrium. Mild scattered respiratory motion artifact. Together thi s decreases sensitivity in some of the smaller subsegmental pulmonary arteries. No pulmonary embolism . Multiple cavitary masses in regions of consolidation in the right lower lobe which given the rapid progression with no correlate on the earlier CT strongly favors pneumonia over malignancy. Additional small region of consolidation in the right middle lobe anterior to the right hilum. Small right pleu ral effusion. Left lung is clear. Heart size is normal. Small pericardial effusion. Mild aneurysm asc ending thoracic aorta measuring up to 4.1 cm in maximal diameter. No dissection. Likely reactive righ t hilar and mediastinal lymphadenopathy. Cholecystectomy clips at the gallbladder fossa. Small slidin g-type hiatal hernia. Moderate thoracic spondylosis. IMPRESSION: 1. No pulmonary embolism. 2. Consolidation multiple cavitary masses in the right lower lobe and small region of consolidation i n the right middle lobe which given the rapid development since study 3 months prior most consistent with an infectious etiology. 3. Small right pleural effusion. 4. Mild aneurysmal ascending thoracic aorta measuring up to 4.1 cm maximal diameter. 5. Small pericardial effusion. 6. Small sliding-type hiatal hernia. Reviewed, dictated and finalized at location A. IMPRESSION: 1. No pulmonary embolism. 2. Consolidation multiple cavitary masses in the right lower lobe and small reg ion of consolidation in the right middle lobe which given the rapid development since study 3 months prior most consistent with an infectious etiology. 3. Small right pleural effusion. 4. Mild aneurysmal ascending thoracic aorta measuring up to 4.1 cm maximal diam eter. 5. Small pericardial effusion. 6. Small sliding-type hiatal hernia.
--- NOTE | 2021-12-01 04:11 | ECG_ITS ---
Measurements Intervals [place] Rate: 98 P: 40 WI: 121 QRS: 21 QRSD: 94 T: 32 QT: 329 QTc: 420 Interpretive Statements SINUS RHYTHM BASELINE ARTIFACT POOR R-WAVE PROGRESSION LOW-VOLTAGE QRS IN LIMB LEADS BORDERLINE ECG COMPARED TO ECG 11/30/2021 09:03:45 NO SIGNIFICANT CHANGES Electronically Signed On 12-02-2021 16:30:42 CDT by Junior Blair M.D.
--- NOTE | 2021-12-01 04:17 | ED.GENADULT ---
HPI - General Adult General Chief complaint: Shortness of Breath/Dyspnea Stated complaint: Sob Time Seen by Provider: 12/01/21 07:17 History of Present Illness HPI narrative: Palma is a 56F with a PMH of COPD, depression/anxiety, GERD, CHF and obesity that presented to the ED with worsening cough and dyspnea. She was seen yesterday and was started on levaquin. As she continued to cough, had trouble tolerating PO and could not sleep she came back in. There was no CP, diarrhea, syncope, or fevers. Related Data Home Medications Medication Instructions Recorded Confirmed lisinopril 20 mg tablet 20 mg PO DAILY 04/13/19 12/01/21 olanzapine 10 mg tablet 10 mg PO HS 04/13/19 12/03/21 omeprazole magnesium 20 mg 20 mg PO DAILY 04/13/19 12/01/21 tablet,delayed release (Prilosec OTC) atorvastatin 40 mg tablet 40 mg PO DAILY 06/01/21 12/01/21 fluoxetine 40 mg capsule 40 mg PO DAILY 06/01/21 12/01/21 furosemide 20 mg tablet 20 mg PO DAILY 11/30/21 12/01/21 multivitamin with minerals 1 tablet PO DAILY 12/01/21 12/01/21 Allergies Allergy/AdvReac Type Severity Reaction Status Date / Time No Known Allergies Allergy Unknown Verified 11/30/21 08:51 Review of Systems Review of Systems: All systems reviewed & are unremarkable except as noted in HPI and below PMFSH Past Medical History Medical History (Updated 12/04/21 @ 10:22 by Leonel Park MD) Anxiety Asthma Congestive heart failure COPD (chronic obstructive pulmonary disease) Depression Hx MRSA infection Hypertension Surgical History Surgical History (Updated 12/01/21 @ 16:05 by Celsa Cohen NP) History of cholecystectomy History of hysterectomy History of incision and drainage Several areas to left forearm History of tubal ligation Family History Family History Father Heart disease Mother , Mother at age 60. Diabetes mellitus Sibling Rheumatoid arthritis Has RA in her hands, sees tobacco blender. Social History Social History (Updated 12/01/21 @ 15:16 by Celsa Cohen NP) Social History: The patient is but lives with her boyfriend now and her daughter and granddaughter. The patient has 2 children. She denies any alcohol or any other illicit drugs. The patient works in the [employer] And she is a former smoker. She does not have a durable power trust and estates attorney for healthcare. Code status full code Smoking packs per day: 1.5 Smoking cigarettes per day: 30.0 Years smoked: 30 Smoking pack-years: 45.00 Smoking status: Former smoker Tobacco type: cigarettes Second hand tobacco smoke exposure: Yes Alcohol intake: never Substance use: never Substance use type: does not use Lack of Transportation: No Lack of Food: Sometimes True Current Housing: I Have Housing Concerned About Future Housing: No Difficulty Paying Gas/Electric Bills: No Difficulty Paying for Meds: No Currently Unemployed: No Education: High School Diploma/GED Difficulty w/ Childcare or Family Care: No Spiritual care concerns: No Exam Const: General: ill appearing acutely Nutritional Appearance: well nourished Orientation/consciousness: patient oriented x3 Limitations: no limitations HENMT: Head: normal to inspection Ears: external ears normal Face/Nose/Sinus: Normal external nose present Face and sinus: normal facial exam Eyes: Conjunctivae: conjunctivae normal Pupils: Equal, round and reactive pupils present EOM: EOMs intact bilaterally Neck: Neck: normal visual inspection Chest: Chest palpation & inspection: normal inspection of the chest Resp: Effort & Inspection: normal respiratory effort Other: Labored breathing with tachypnea, Bibasilar crackles worse on the RLL. Frequent cough present. Cardio: Rate: tachycardic Rhythm: regular rhythm Skin: Other: warm, moist Neuro: General: patient oriented x3 and moves all extremities Ex
[2021-12-01] MEDS: SODIUM CHLORIDE 0.9% IV 1,000 ML 999 ML IV CONT (04:27)
--- NOTE | 2021-12-01 04:32 | PC.NURSE ---
Sputum specimen collected per order and sent c lab.
[2021-12-01 04:43] LABS: Basophils Absolute Auto 0.02 K/mm3 (0.00-0.10); Basophils Percent Auto 0.2 % (0.0-1.0); Eosinophils Absolute Auto 0.06 K/mm3 (0.02-0.50); Eosinophils Percent Auto 0.5 % (1.0-6.0); Hematocrit 30.9 % (35.0-49.0); Hemoglobin 9.8 g/dL (12.0-15.0); Immature Granulocyte Absolute 0.06 K/mm3 (0.00-0.00); Immature Granulocyte Percent A 0.5 % (0.0-0.0); Lymphocytes Percent Auto 11.3 % (18.0-42.0); Mean Corpuscular HGB Conc 31.7 g/dL (32.0-36.0); Mean Corpuscular Hemoglobin 28.5 pg (27.0-31.0); Mean Corpuscular Volume 89.8 fL (78.0-102.0); Mean Platelet Volume 9.7 fl (9.2-11.8); Monocytes Absolute Auto 0.66 K/mm3 (0.10-0.90); Monocytes Percent Auto 5.3 % (2.0-11.0); Neutrophils Absolute Auto 10.2 K/mm3 (1.7-7.2); Neutrophils Percent Auto 82.2 % (50.0-70.0); Platelet Count Result 318 K/mm3 (150-420); Red Blood Count 3.44 M/mm3 (4.20-5.40); Red Cell Distribution Width 13.3 % (11.6-14.4); White Blood Count 12.4 K/mm3 (4.8-10.8)
[2021-12-01 04:59] LABS: Alanine Aminotransferase 38 U/L (14-59); Albumin Level 2.3 g/dL (3.4-5.0); Alkaline Phosphatase 112 U/L (46-116); Anion Gap 7 mmol/L (8-16); Aspartate Amino Transferase 15 U/L (15-37); Bilirubin,Total 0.7 mg/dL (0.00-1.00); Blood Urea Nitrogen 7 mg/dL (7-18); Carbon Dioxide 27 mmol/L (21-32); Chloride 103 mmol/L (98-108); Estimated CRCL calculation 115 ml/min; Estimated Glomerular Filt Rate > 60; Glucose 128 mg/dL (70-99); Osmolality Calculated 284 mOsm/kg (285-295); Potassium 3.4 mmol/L (3.5-5.1); Sodium 137 mmol/L (136-145); Total Protein 6.6 g/dL (6.4-8.2); Troponin I 5.3 ng/L (0.00-60.4)
[2021-12-01 05:01] LABS: Lactic Acid Reflex 0.5 mmol/L (0.4-2.0)
--- NOTE | 2021-12-01 05:14 | PC.NURSE ---
Pt resting, lights dimmed, VSS at this time. Lungs noted c bilat. wheezing present and dim. lung sounds in bases, pt remains slightly tachypneic c some thick phlegm production c cough. RR even and nonlabored.
--- NOTE | 2021-12-01 05:31 | PC.NURSE ---
[facility] ERP states that phone rang and no one answered.
--- NOTE | 2021-12-01 05:35 | PC.NURSE ---
Niels spoke c pt about CTA results and need for transfer for further tests and hair baler. Pt agreeable to transfer to [place], call placed to house supv. by Dr Bowser. No answer, will call back.
--- NOTE | 2021-12-01 05:46 | PC.NURSE ---
Call back to [facility] Spoke to Cadence, report given, will await call back from hospitalist.
[2021-12-01] MEDS: SODIUM CHLORIDE 0.9% IV 1,000 ML 150 ML IV CONT (05:54)
--- NOTE | 2021-12-01 06:36 | PC.NURSE ---
Dr Bowser calling back to [facility] to speak c hospitalist, will await call back.
[2021-12-01 06:57] LABS: Appearance Urine Clear (Clear); Bilirubin Urine Negative (Negative); Blood Urine Negative (Negative); Glucose Urine UA Negative (Negative); Ketones Urine Negative (Negative); Leukocyte Esterase Ur Negative (Negative); Nitrate Urine Negative (Negative); Protein Urine Negative (Negative); Specific Grav Ur <= 1.005 (1.010-1.020)
[2021-12-01 07:00] LABS: Add Urine Microscopic? NO; Color Urine Light Yellow (Yellow)
--- NOTE | 2021-12-01 07:15 | PC.NURSE ---
Report given to GONZALO Major. Pt resting and awaiting call back for bed placement at [place].
[2021-12-01] MEDS: SODIUM CHLORIDE 0.9% IV 1,000 ML 120 ML IV CONT (07:27)
--- NOTE | 2021-12-05 13:27 | PC.NURSE ---
SPUTUM FINAL RESULTS: NO EPITHELIAL CELLS SEEN, MANY WHITE BLOOD CELLS, SEEN, MODERATE MIXED BACTERIAL MORPHOTYPES PRESENT, NONE PREDOMINANT. GRAM STAIN INDICATES THAT THE SPECIMEN IS TRANSPORT COMPANY MANAGER OF THE LOWER RESPIRATORY TRACT. RESULT: GROWTH OF NORMAL OROPHARYNGEAL DANICA. RESULTS CALLED TO TO [facility] 2ND FLOOR AT 1322.
--- NOTE | 2021-12-07 20:04 | PC.NURSE ---
FINAL BLOOD CULTURE RESULTS: NO GROWTH AFTER 5 DAYS
== END 2021-12-01 08:31 | disposition short-term general hospital (02) ==
PROVIDERS: Family Medicine; Emergency Provider Emergency Medicine; PCP Physician Assistant
DX: J18.8 Other pneumonia, unspecified organism (principal)
CPT/HCPCS: 36415; 71275; 80053; 81003; 83605; 84484; 85025; 87040; 87070; 87205; 93005; 96361; 96365; 96366; 96367; 99285; J2543; J3370; J7030; Q9967

== ENCOUNTER 2021-12-01 09:15 | Inpatient (IN) | payer OTHER, SELFPAY ==
[2021-12-01] VITALS (10 sets, daily range): BP systolic 120–156; BP diastolic 67–85; PULSE 84–115; RESP 20–24; TEMP 36–38.4; O2SAT 92–100; BMI 42.4
--- NOTE | ~2021-12-01 | XR_ITS ---
MODIFIED ESOPHAGRAM HISTORY: Dysphagia. TECHNIQUE: Modified barium esophagram was performed by speech pathologist under radiologist fluorosco pic guidance. This was recorded on tape. The exam was reviewed on 12/03/2021 10:39 CDT. The DAP fo r this procedure was 9 Gycm2. Fluoroscopy time is 0.9 minutes. FINDINGS: Lateral projection of the cervical spine demonstrates normal alignment. There is normal s wallowing function without evidence for penetration or aspiration.. IMPRESSION: 1: Normal swallowing function without penetration or aspiration. 2: Please refer to speech pathologist report for additional detail. Reviewed, dictated and finalized at location A.
--- NOTE | 2021-12-01 09:29 | ADMGEN ---
This patient, Palma Frost, was admitted to IMU Room 200-01 at 0910. Patient/family oriented to hospital policies and general routines including ID bracelet, bed and alarms, visiting hours, pain management, procedures, bathroom and other care routines, personal items, smoking policy, room service/diet, and visiting hours. Information on how to activate the Rapid Response Team has been discussed. Patient/Family are encouraged to report perceived risks to care and to ask questions if they do not understand what they are told or what they should do.
[2021-12-01 12:20] LABS: Magnesium 1.6 mg/dL (1.6-2.3)
--- NOTE | 2021-12-01 13:17 | PM.CNPUL ---
Assessment and Plan Assessment and plan (1) Necrotizing pneumonia: Code(s): J85.0 - Gangrene and necrosis of lung Status: Acute Assessment and Plan: She has a necrotizing pneumonia, failed out patient treatment with azithromycin and then Levaquin. Zosyn for anaerobic coverage and vancomycin pulmonary hygiene; Cornet, pulmozyme, incentive spirometry sputum studies, Gram stain, c&s, fungal and AFB, urine antigens Legionella & pneumococcus Hypersensitivity pneumonitis panel with her extensive exposure to parakeets; she did have a reaction to mark antigens swallow study; can do this when she is better Home O2 study before she goes home out patient PFTs 6 weeks after discharge, pulmonary follow up if she wants (2) COPD (chronic obstructive pulmonary disease): Code(s): J44.9 - Chronic obstructive pulmonary disease, unspecified Status: Acute Assessment and Plan: She has 30 pack year hx, 1.5 ppd, about age 31 until age 51. she is on albuterol alone at home does not use this very often. She is on no controller medication. Her main symptom is shortness of breath, rarely has cough or sputum production, only when she has respiratory infection which is not often. She has severe pneumonia several years ago, was admitted for 3 days. out patient evaluation after recovery, PFTs, possible eval for cardiopulmonary rehab History of Present Illness History of Present Illness Consult date: 12/01/21 Requesting physician: Marcelino Lincoln MD Chief complaint: pneumonia,abdominal chest ct, tachycardia Narrative: NEW: Palma Frost is a 56 year old woman with COPD. She stopped smoking 4-5 years ago when she had a severe pneumonia. She generally does not get many respiratory infections. For the last 2 weeks, she has been sick with a cough, sore throat, sputum production which is now thick green, mid sternal chest pain with coughing, and fever up to 102 with chills. She used a Touchless thermometer at home, so this was documented. She has been using ibuprofen to control the fever. Other symptoms include intense headache on both sides of her head near her eyes. She has not had nasal congestion. She has not been around any sick contacts, and she has not had travel. She had an Urgent Care visit 11/20, treated with azithromycin and prednisone, was worse with more coughing and shortness of breath, and Nov 30 yesterday went to the ER . She was treated with Levaquin, went home. After leaving the ER, she had excessive coughing to the point of vomiting. Marilyn was called to her pharmacy. She returned for increased symptoms, had chest CT with a necrotizing pneumonia, was transferred to [place]. She reports 3 negative COVID tests in the last 2 weeks. WBC 12.4, Na+ 137, BUN 7, creat 0.6, anemia H/H 9.8/30.9%, K+ 3.4, mag 1.6. She has not had elevated eosinophils. Chest CT today 12/01/21 : No pulmonary embolism. 2. Consolidation multiple cavitary masses in the right lower lobe and small region of consolidation in the right middle lobe which given the rapid development since study 3 months prior most consistent with an infectious etiology. 3. Small right pleural effusion. 4. Mild aneurysmal ascending thoracic aorta measuring up to 4.1 cm maximal diameter. 5. Small pericardial effusion. 6. Small sliding-type hiatal hernia. She says this is the worst she has felt since the prior pneumonia 5 years ago when she was an inpatient for 3 days. She has COPD, has an albuterol inhaler that she uses infrequently. On a normal day, she does not have a cough or sputum. She has significant baseline dyspnea, cannot go up stairs. She cannot walk very far, and walks more slowly than others. No wheezing. PMH: COPD, severe pneumonia 4-5 years ago admitted for 3 days. Hypertension, hyperl
[2021-12-01] MEDS: OLANZapine 5 MG TABLET 10 MG PO (14:12)
[2021-12-01] MEDS: lisinopriL 20 MG TABLET PO (14:13)
[2021-12-01] MEDS: FUROSEMIDE 20 MG TABLET PO (14:13)
[2021-12-01] MEDS: THERAPEUTIC MULTIVITAMINS/MINERALS TAB (*BKC) 1 TABLET PO (14:13)
[2021-12-01] MEDS: FLUoxetine HCL 20 MG CAPSULE 40 MG PO (14:13)
[2021-12-01] MEDS: ATORVASTATIN 40 MG TABLET PO (14:13)
[2021-12-01] MEDS: DOXYCYCLINE 100 MG/NS 100 ML 100 MG/100 ML BAG IVPB (14:15)
--- NOTE | 2021-12-01 15:04 | PM.IMHP ---
H&P: HPI History of Present Illness Date/Time: 12/01/21 15:04 Chief Complaint: Shortness of breath Narrative: This is a 56-year-old female patient who came directly from [facility]. The patient stated that 2 Sundays ago she started to become short of breath. She has been seen by the ER doctor and also by her primary care doctor. The patient stated that she has had a multitude of antibiotics and steroids. She also has a history COPD as well as congestive heart failure. The patient still continued to cough and have difficulty breathing. Patient denies any fever chills at this point. The patient was just seen yesterday in the emergency room and was given Levaquin. The patient was having difficulty tolerating her p.o. medication. Her white count is 12.4 which is down from 13.6 yesterday. H&H is 9.8 and 30.9. Which is down from yesterday 10.4 and 30.7. Neutrophil percentage 79.6 yesterday and 82.2 today. Magnesium is 1.6. Dr. Lincoln called the Infectious Disease pharmacist who recommended doxycycline, Zosyn and vancomycin. Pulmonary has been consulted Zosyn and vancomycin since the patient has necrotizing pneumonia that failed outpatient treatment with azithromycin and Levaquin. Her chest x-ray from yesterday shows bibasilar airspace disease compatible with pneumonia. The patient had a CTA performed today which was read as the following 1. No pulmonary embolism. 2. Consolidation multiple cavitary masses in the right lower lobe and small region of consolidation in the right middle lobe which given the rapid development since study 3 months prior most consistent with an infectious etiology. 3. Small right pleural effusion. 4. Mild aneurysmal ascending thoracic aorta measuring up to 4.1 cm maximal diameter. 5. Small pericardial effusion. 6. Small sliding-type hiatal hernia. The patient is being admitted to observation status on the date of service of 12/01/2021. Review of Systems Review of Systems: See HPI All systems reviewed & are unremarkable except as noted in HPI and below Constitutional: Constitutional: Reports as per HPI and Reports no additional constitutional complaints Eyes: Eyes: Reports as per HPI and Reports no additional eye complaints ENT: Reports system reviewed and no additional complaints, except as documented and Reports Normal hearing present Cardiovascular: Cardiovascular: Reports no additional cardiovascular complaints Respiratory: Respiratory: Reports no additional respiratory complaints and Reports no additional respiratory complaints Gastrointestinal: Gastrointestinal: Reports as per HPI and Reports no additional gastrointestinal complaints Musculoskeletal: Musculoskeletal: Reports no additional musculoskeletal complaints Integumentary/Breasts: Skin/Breast: Reports system reviewed and no additional complaints, except as docu and Reports as per HPI Neurologic: Reports system reviewed and no additional complaints, except as documented, Reports as per HPI and Reports Normal hearing present Psychiatric: Psychiatric: Reports no additional psychiatric complaints and Reports as per HPI Endocrine: Endocrine: Reports no additional endocrine complaints Hematologic/Lymphatic: Hematologic/Lymphatic: Reports no additional hematologic/lymphatic complaints Allergic/Immunologic: Allergic/Immunologic: Reports no additional allergic/immunologic complaints PMF Past Medical History Medical History (Updated 12/01/21 @ 16:02 by Celsa Cohen NP) Anxiety Asthma Congestive heart failure COPD (chronic obstructive pulmonary disease) Depression Hx MRSA infection Hypertension Surgical History Surgical History (Updated 12/01/21 @ 16:05 by Celsa Cohen NP) History of cholecystectomy History of hysterectomy History of incision and drainage Several areas to left forearm History of tubal ligation Family History Family History Father Heart diseas
[2021-12-01] MEDS: MAGNESIUM SULF 2 GM/WATER 50ML 2 GM/50 ML BAG IVPB (15:47)
[2021-12-01] MEDS: ENOXAPARIN 120 MG/0.8 ML SYRINGE SUB-Q (15:47)
[2021-12-01] MEDS: PIPERACILLIN/TAZOBACTAM SOD 4.5 GM in SODIUM CHLORIDE 0.9% IV 100 ML 200 ML IVPB (17:51)
[2021-12-01 18:08] LABS: Rheumatoid Factor < 12.0 IU/ML (<12)
[2021-12-01] MEDS: ALPRAZolam (*CRX) 0.5 MG TABLET 1 MG PO (20:10)
[2021-12-02] VITALS (19 sets, daily range): BP systolic 113–151; BP diastolic 61–82; PULSE 88–106; RESP 16–24; TEMP 36.3–37.4; O2SAT 94–97
[2021-12-02] MEDS: ALBUTEROL SULFATE (*SP) AEROSOL 1 PUFF 2 PUFF INHALATION ×2 (00:57→09:31)
[2021-12-02 05:05] LABS: Hematocrit 29.4 % (37.0-47.0); Hemoglobin 9.6 g/dL (12.0-15.0); Mean Corpuscular HGB Conc 32.7 g/dl (32-36); Mean Corpuscular Volume 85.7 fl (80-100); Mean Platelet Volume 9.7 fl (7.4-10.4); Platelet Count Result 381 k/mm3 (150-375); Red Blood Count 3.43 M/mm3 (4.2-5.4); Red Cell Distribution Width 13.7 % (11.5-14.5); White Blood Count 12.1 K/mm3 (4.5-10.0)
[2021-12-02 05:10] LABS: Anion Gap 12 mmol/L (8-16); Blood Urea Nitrogen 3 mg/dL (7-17); Calcium 7.9 mg/dL (8.4-10.2); Carbon Dioxide 28 mmol/L (22-30); Chloride 99 mmol/L (98-107); Estimated CRCL calculation 118 ml/min; Estimated Glomerular Filt Rate > 60; Glucose 114 mg/dL (65-110); Sodium 139 mmol/L (137-145)
[2021-12-02] MEDS: PIPERACILLIN/TAZOBACTAM SOD 4.5 GM in SODIUM CHLORIDE 0.9% IV 100 ML 200 ML IVPB ×4 (05:46→17:29)
[2021-12-02] MEDS: DORNASE ALFA INH SOLN 1 MG/ML 2.5 ML AMP 2.5 MG INHALATION ×2 (09:19→20:19)
[2021-12-02] MEDS: FLUoxetine HCL 20 MG CAPSULE 40 MG PO (10:43)
[2021-12-02] MEDS: ATORVASTATIN 40 MG TABLET PO (10:43)
[2021-12-02] MEDS: THERAPEUTIC MULTIVITAMINS/MINERALS TAB (*BKC) 1 TABLET PO (10:43)
[2021-12-02] MEDS: OLANZapine 5 MG TABLET 10 MG PO (10:43)
[2021-12-02] MEDS: lisinopriL 20 MG TABLET PO (10:44)
[2021-12-02] MEDS: PANTOPRAZOLE 40 MG TABLET PO (10:44)
[2021-12-02] MEDS: FUROSEMIDE 20 MG TABLET PO (10:44)
[2021-12-02] MEDS: DOXYCYCLINE 100 MG/NS 100 ML 100 MG/100 ML BAG IVPB ×2 (11:07)
[2021-12-02] MEDS: ENOXAPARIN 40 MG/0.4 ML SYRINGE SUB-Q (11:13)
--- NOTE | 2021-12-02 12:54 | PM.IMPN ---
Progress Note: A&P Assessment and Plan (1) Necrotizing pneumonia: Code(s): J85.0 - Gangrene and necrosis of lung Status: Inactive Assessment and Plan: patient failed outpatient therapy with azithromycin and then Levaquin. COVID and influenza swabs were negative. Does have exposure to tarsals and parakeets so consider zoonotic infection. Continue doxycycline, vancomycin and Zosyn. Wean oxygen as tolerated. Continue Pulmozyme. Sputum studies ordered. Add nebulizer treatments. Webbing Supervisor consulted and appreciate their input. Check swallow study. Testing for TB is ongoing. Wean oxygen as tolerated. Continue current antibiotics. (2) COPD (chronic obstructive pulmonary disease): Code(s): J44.9 - Chronic obstructive pulmonary disease, unspecified Status: Acute Assessment and Plan: Continue with albuterol but will schedule. Wean oxygen as tolerated. Only on rescue inhaler at home. (3) Hypertension: Code(s): I10 - Essential (primary) hypertension Status: Acute Assessment and Plan: Patient's blood pressure was reviewed on 12/02 Blood pressure remains well controlled. Will continue current medicationsWith lisinopril. (4) Anxiety: Code(s): F41.9 - Anxiety disorder, unspecified Status: Acute Assessment and Plan: Mood is stable.Continue with alprazolam. (5) Depression: Qualifiers: Active/Remission status: currently active Depression Type: major depressive disorder Major depression episode severity: mild Major depression recurrence: recurrent Qualified Code(s): F33.0 - Major depressive disorder, recurrent, mild Code(s): F32.9 - Major depressive disorder, single episode, unspecified Status: Acute Assessment and Plan: Stable. Continue Prozac and Zyprexa. Plan Patient's magnesium was borderline and was replaced. Subjective Date/time seen: 12/02/21 12:54 Interval history: 56yo female with COPD, HTN here for necrotizing PNA. Patient feels much better than on admission. She was able to sleep last night. She states she was able to lower the head of the bed better. She quit tobacco 5 years ago. She has not smoked marijuana for the past 5 years. She denies any chest pain. Eating well. No odynophagia or dysphagia. She has a cough productive of green-yellow sputum. She does have cats, dogs, Turtles and parakeets. Exam Narrative: Tm 1008 98.2 151/82 106 24 95% 2L Gen - NARD Chest -Expiratory wheezes anteriorly. Right basilar inspiratory crackles. CV - RRR S1/S2. Telemetry showing occasional sinus tachycardia. Abd - Soft, NT/ND, Positive BS Ext - No pedal edema Psych - Nml mood and affect Skin - Warm and dry. No rashes Objective Data Vital Signs Vital Signs: Vital Signs - 24 hr 12/01/21 14:00 12/01/21 16:00 12/01/21 16:00 Temperature Pulse Rate 112 H 112 H Respiratory Rate Blood Pressure Pulse Oximetry 93 Oxygen Delivery High Flow Nasal Cannula Oxygen Flow Rate 3 12/01/21 16:51 12/01/21 18:00 12/01/21 20:00 Temperature 100.8 F H 101.2 F H Pulse Rate 115 H 113 H 107 H Respiratory Rate 22 H 24 H Blood Pressure 141/84 H 156/68 H Pulse Oximetry 94 94 Oxygen Delivery Oxygen Flow Rate 12/01/21 20:00 12/01/21 20:00 12/01/21 21:42 Temperature Pulse Rate 110 H 102 H Respiratory Rate Blood Pressure Pulse Oximetry 92 Oxygen Delivery Room Air Oxygen Flow Rate 12/02/21 00:00 12/02/21 00:00 12/02/21 00:00 Temperature 99.3 F Pulse Rate 105 H 103 H Respiratory Rate 20 Blood Pressure 138/63 Pulse Oximetry 96 96 Oxygen Delivery Nasal Cannula Oxygen Flow Rate 2 12/02/21 02:00 12/02/21 04:00 12/02/21 04:00 Temperature Pulse Rate 104 H 104 H Respiratory Rate Blood Pressure Pulse Oximetry 97 Oxygen Delivery Nasal Cannula Oxygen Flow Rate 2 12/02/21 04:00 12/02/21 06:00
[2021-12-02] MEDS: ACETAMINOPHEN 325 MG TABLET 650 MG PO (14:03)
[2021-12-02] MEDS: POTASSIUM CHLORIDE 20 MEQ TABLET 40 MEQ PO (14:03)
--- NOTE | 2021-12-02 15:49 | PCSTNOTE ---
Please refer to the Bedside Swallow Evaluation in the EMR. Please note, silent aspiration cannot be ruled out at bedside.
--- NOTE | 2021-12-02 17:54 | PM.PNPUL ---
Progress Note: A&P Assessment and Plan (1) Necrotizing pneumonia: Code(s): J85.0 - Gangrene and necrosis of lung Status: Acute Assessment and Plan: She has a necrotizing pneumonia, failed out patient treatment with azithromycin and then Levaquin. Will continue with the plan for treatment including Zosyn for anaerobic coverage and vancomycin pulmonary hygiene; Cornet, pulmozyme, incentive spirometry sputum studies, Gram stain, c&s, fungal and AFB, urine antigens Legionella & pneumococcus Hypersensitivity pneumonitis panel with her extensive exposure to parakeets; she did have a reaction to mark antigens swallow study; can do this when she is better Home O2 study before she goes home out patient PFTs 6 weeks after discharge, pulmonary follow up if she wants (2) COPD (chronic obstructive pulmonary disease): Code(s): J44.9 - Chronic obstructive pulmonary disease, unspecified Status: Acute Assessment and Plan: She has 30 pack year hx, 1.5 ppd, about age 31 until age 51. she is on albuterol alone at home does not use this very often. She is on no controller medication. Her main symptom is shortness of breath, rarely has cough or sputum production, only when she has respiratory infection which is not often. She has severe pneumonia several years ago, was admitted for 3 days. out patient evaluation after recovery, PFTs, possible eval for cardiopulmonary rehab Time Spent With Patient Time with patient: less than 15 minutes Subjective Date/time seen: 12/02/21 17:54 Interval history: hospital follow up : Palma Frost is a 56 year old woman with COPD. She stopped smoking 4-5 years ago when she had a severe pneumonia. She generally does not get many respiratory infections.? For the last 2 weeks, she has been sick with a cough, sore throat, sputum production which is now thick green, mid sternal chest pain with coughing, and fever up to 102 with chills.? She used a Touchless thermometer at home, so this was documented. She has been using ibuprofen to control the fever. Other symptoms include intense headache on both sides of her head near her eyes.? She has not had nasal congestion.? She has not been around any sick contacts, and she has not had travel.? She had an Urgent Care visit 11/20, treated with azithromycin and prednisone, was worse with more coughing and shortness of breath, and Nov 30 yesterday went to the ER . She was treated with Levaquin, went home. After leaving the ER, she had excessive coughing to the point of vomiting. Marilyn was called to her pharmacy. She returned for increased symptoms, had chest CT with a necrotizing pneumonia, was transferred to [place]. ? She reports 3 negative COVID tests in the last 2 weeks. WBC 12.4, Na+ 137, BUN 7, creat 0.6, anemia H/H 9.8/30.9%, K+ 3.4, mag 1.6. She has not had elevated eosinophils. Chest CT 12/01/21 : No pulmonary embolism. 2. Consolidation multiple cavitary masses in the right lower lobe and small region of consolidation in the right middle lobe which given the rapid development since study 3 months prior most consistent with an infectious etiology. 3. Small right pleural effusion. 4. Mild aneurysmal ascending thoracic aorta measuring up to 4.1 cm maximal diameter. 5. Small pericardial effusion. 6. Small sliding-type hiatal hernia. Review of Systems Review of Systems: All systems reviewed & are unremarkable except as noted in HPI and below Exam Narrative: GEN: Alert, oriented, not in distress. She is able to speak in complete sentences. She is having chills, wants to be covered up. HEENT: pupils are equal, EOMI, symmetrical face; oral membranes moist, edentulous, Mallampati III airway, no erythema or exudate. TMs are normal. NECK: Trachea is midline without lymphadenopathy
[2021-12-02] MEDS: ALBUTEROL SULFATE NEB 2.5 MG/3 ML INH INHALATION (20:38)
--- NOTE | 2021-12-02 20:39 | PCRCNOTE ---
PRN UPD given due to wheezing and SOB. Dr. Ellsworth in room to discuss changes in lifestyle habits to improve breathing.
[2021-12-02] MEDS: ALPRAZolam (*CRX) 0.5 MG TABLET 1 MG PO (20:50)
[2021-12-03] VITALS (11 sets, daily range): BP systolic 123–143; BP diastolic 58–72; PULSE 96–108; RESP 16–30; TEMP 36.9–37.5; O2SAT 94–98
[2021-12-03] MEDS: DOXYCYCLINE 100 MG/NS 100 ML 100 MG/100 ML BAG IVPB ×3 (00:29→23:58)
[2021-12-03] MEDS: ACETAMINOPHEN 325 MG TABLET 650 MG PO ×2 (01:26→21:13)
[2021-12-03] MEDS: PIPERACILLIN/TAZOBACTAM SOD 4.5 GM in SODIUM CHLORIDE 0.9% IV 100 ML 200 ML IVPB ×4 (01:28→23:30)
[2021-12-03 05:18] LABS: Alanine Aminotransferase 48 U/L (6-35); Albumin Level 3.4 g/dL (3.5-5.1); Alkaline Phosphatase 151 U/L (38-126); Anion Gap 14 mmol/L (8-16); Aspartate Amino Transferase 58 U/L (14-36); Bilirubin,Total 0.9 mg/dL (0.2-1.3); Blood Urea Nitrogen 4 mg/dL (7-17); Calcium 8.3 mg/dL (8.4-10.2); Carbon Dioxide 28 mmol/L (22-30); Chloride 98 mmol/L (98-107); Estimated CRCL calculation 118 ml/min; Estimated Glomerular Filt Rate > 60; Glucose 113 mg/dL (65-110); Potassium 3.7 mmol/L (3.4-5.0); Sodium 140 mmol/L (137-145)
[2021-12-03 06:16] LABS: Basophils Percent Auto 0.2 % (0.2-1.2); Eosinophils Absolute Auto 0.4 K/mm3 (0-0.3); Eosinophils Percent Auto 3.3 % (0-4.4); Hematocrit 29.1 % (37.0-47.0); Hemoglobin 9.2 g/dL (12.0-15.0); Immature Granulocyte Absolute 0.08 K/mm3 (0.00-0.031); Immature Granulocyte Percent A 0.7 % (0-0.5); Lymphocytes Absolute Auto 1.41 K/mm3 (0.9-3.2); Lymphocytes Percent Auto 13.1 % (18.3-44.2); Mean Corpuscular HGB Conc 31.6 g/dl (32-36); Mean Corpuscular Hemoglobin 28.3 pg (26-34); Mean Corpuscular Volume 89.5 fl (80-100); Mean Platelet Volume 10.8 fl (7.4-10.4); Monocytes Absolute Auto 0.7 K/mm3 (0.1-0.6); Neutrophils Absolute Auto 8.2 K/mm3 (1.3-6.7); Neutrophils Percent Auto 76.7 % (45.5-73.1); Platelet Count Result 342 k/mm3 (150-375); Red Blood Count 3.25 M/mm3 (4.2-5.4); Red Cell Distribution Width 13.6 % (11.5-14.5); White Blood Count 10.8 K/mm3 (4.5-10.0)
[2021-12-03] MEDS: DORNASE ALFA INH SOLN 1 MG/ML 2.5 ML AMP 2.5 MG INHALATION ×2 (07:43→20:21)
[2021-12-03] MEDS: PANTOPRAZOLE 40 MG TABLET PO (08:29)
[2021-12-03] MEDS: THERAPEUTIC MULTIVITAMINS/MINERALS TAB (*BKC) 1 TABLET PO (08:29)
[2021-12-03] MEDS: lisinopriL 20 MG TABLET PO (08:29)
[2021-12-03] MEDS: FLUoxetine HCL 20 MG CAPSULE 40 MG PO (08:29)
[2021-12-03] MEDS: FUROSEMIDE 20 MG TABLET PO (08:29)
[2021-12-03] MEDS: ATORVASTATIN 40 MG TABLET PO (08:29)
[2021-12-03] MEDS: ENOXAPARIN 40 MG/0.4 ML SYRINGE SUB-Q (08:30)
--- NOTE | 2021-12-03 10:11 | PC.NURSE ---
Patient transported by transport tank technician at 1007 to imaging for barium swallow study.
--- NOTE | 2021-12-03 10:36 | PC.NURSE ---
Patient back to room from swallow study at 1033.
--- NOTE | 2021-12-03 10:58 | PCSTNOTE ---
Modified barium swallow completed. Patient's swallowing within functional limits for consistencies tested. No penetration or aspiration observed. Physician notified of results. Thank you for the referral of this patient. [ End ]
[2021-12-03] MEDS: ALBUTEROL SULFATE NEB 2.5 MG/3 ML INH INHALATION ×2 (13:01→20:16)
[2021-12-03 13:22] LABS: NIL 0.02 IU/mL; Quantiferon TB Plus, 1T NEGATIVE (NEGATIVE); TB2-NIL 0.01 IU/mL
--- NOTE | 2021-12-03 14:58 | PM.IMPN ---
Progress Note: A&P Assessment and Plan (1) Necrotizing pneumonia: Code(s): J85.0 - Gangrene and necrosis of lung Status: Inactive Assessment and Plan: Patient failed outpatient therapy with azithromycin and then Levaquin. COVID and influenza swabs were negative. Does have exposure to turtles and parakeets so consider zoonotic infection. Currently on doxycycline, vancomycin and Zosyn. Sputum NGTD. BCx NGTD. TB negative. MBS showing normal swallowing ability. Clinically better. Down to 1L. Wean oxygen as tolerated. Continue Pulmozyme. Sputum studies ordered. Continue abx. Rugby Union Footballer consulted and appreciate their input. (2) COPD (chronic obstructive pulmonary disease): Code(s): J44.9 - Chronic obstructive pulmonary disease, unspecified Status: Acute Assessment and Plan: Continue with albuterol but will schedule. Wean oxygen as tolerated. Only on rescue inhaler at home. (3) Hypertension: Code(s): I10 - Essential (primary) hypertension Status: Acute Assessment and Plan: Patient's blood pressure was reviewed on 12/03 Blood pressure remains well controlled. Will continue current medications with lisinopril. (4) Anxiety: Code(s): F41.9 - Anxiety disorder, unspecified Status: Acute Assessment and Plan: Mood is stable. Continue with alprazolam. (5) Depression: Qualifiers: Active/Remission status: currently active Depression Type: major depressive disorder Major depression episode severity: mild Major depression recurrence: recurrent Qualified Code(s): F33.0 - Major depressive disorder, recurrent, mild Code(s): F32.9 - Major depressive disorder, single episode, unspecified Status: Acute Assessment and Plan: Stable. Continue Prozac and Zyprexa. Subjective Date/time seen: 12/03/21 14:58 Interval history: 56yo female with COPD, HTN here for necrotizing PNA. Has nausea with post-tussive emesis. Cough productive of yellow green sputum. Slept poorly. No CP Exam Narrative: AF 98.5 123/64 99 18 96% 1L Gen - NARD Chest - CTA bilaterally, nml RR CV - RRR S1/S2. Telemetry showing Abd - Soft, NT/ND, Positive BS Ext - trace pedal edema Psych - Nml mood and affect Skin - Warm and dry. No rashes Objective Data Vital Signs Vital Signs: Vital Signs - 24 hr 10/28/22 16:00 12/02/21 16:00 12/02/21 16:00 Temperature 97.3 F L Pulse Rate 98 88 Respiratory Rate 16 Blood Pressure 113/62 Pulse Oximetry 97 94 Oxygen Delivery Nasal Cannula Oxygen Flow Rate 2 12/02/21 20:00 12/02/21 20:19 12/02/21 20:25 Temperature 98.7 F Pulse Rate 95 95 102 H Respiratory Rate 20 20 18 Blood Pressure 119/72 Pulse Oximetry 97 97 Oxygen Delivery Nasal Cannula Oxygen Flow Rate 2 12/02/21 20:26 12/02/21 20:44 12/02/21 23:44 Temperature 98.3 F Pulse Rate 99 104 H Respiratory Rate 18 20 Blood Pressure 131/67 Pulse Oximetry 95 96 Oxygen Delivery Nasal Cannula Oxygen Flow Rate 2 12/03/21 00:00 12/03/21 05:21 12/03/21 07:44 Temperature Pulse Rate 104 H 102 H 100 Respiratory Rate 20 16 18 Blood Pressure Pulse Oximetry 96 97 Oxygen Delivery Nasal Cannula Nasal Cannula Oxygen Flow Rate 2 2 12/03/21 08:10 12/03/21 08:00 12/03/21 08:00 Temperature 98.5 F Pulse Rate 99 103 H Respiratory Rate 18 20 Blood Pressure 123/64 Pulse Oximetry 96 95 Oxygen Delivery Nasal Cannula Oxygen Flow Rate 1 Intake/Output Intake/Output: Intake & Output 11/30/21 12/01/21 12/02/21 12/03/21 23:59 23:59 23:59 23:59 Intake Total 915 2920 1880 Output Total 500 3950 3550 Balance 548 -8849 -8859 Meds/Results Medications: Active Medications Generic Name Dose Route Start Last Admin Trade Name Freq PRN Reason Stop Dose Admin Acetaminophen 650 mg 12/02/21 12:53 12/03/21 01:26 Acetaminophen 325 Mg Tablet PO 650 mg Q6H PRN Admin
--- NOTE | 2021-12-03 16:45 | PC.NURSE ---
Report given to GONZALO Mosqueda with [address] [place] [address]. Patient to move to room 256.
--- NOTE | 2021-12-03 17:11 | PC.NURSE ---
This patient, Palma Frost, was received from IMU on 12/03/21 at 1711. Patient/family oriented to unit policies and routines. Report received from Shikha SÁNCHEZ.
--- NOTE | 2021-12-03 17:12 | PC.NURSE ---
1200 zosyn was scanned in IMU while patient still on that unit but was not actually given until around 1600 by IMU nurse due to loss of IV access. IV access was regained and zosyn restarted. zosyn finished around 1630. next dose scheduled to be given at 1800. Spoke with pharmacist and they recommended I non-administer 1800 dose and resume with next dose.
[2021-12-03] MEDS: guaiFENesin 12 HR 600 MG TABCR PO (21:13)
[2021-12-03] MEDS: ALPRAZolam (*CRX) 0.5 MG TABLET 1 MG PO (21:13)
[2021-12-03] MEDS: OLANZapine 5 MG TABLET 10 MG PO (21:13)
[2021-12-03 21:35] LABS: Vancomycin Trough 12.1 ug/mL (10.0-20.0)
[2021-12-04] VITALS (12 sets, daily range): BP systolic 116–139; BP diastolic 58–69; PULSE 92–105; RESP 18–22; TEMP 36.8–36.9; O2SAT 93–94
[2021-12-04] MEDS: ALBUTEROL SULFATE NEB 2.5 MG/3 ML INH INHALATION ×4 (02:02→20:20)
[2021-12-04] MEDS: ACETAMINOPHEN 325 MG TABLET 650 MG PO ×2 (03:55→12:50)
[2021-12-04] MEDS: PIPERACILLIN/TAZOBACTAM SOD 4.5 GM in SODIUM CHLORIDE 0.9% IV 100 ML 200 ML IVPB ×3 (05:03→18:19)
[2021-12-04 05:23] LABS: Hematocrit 28.2 % (37.0-47.0); Mean Corpuscular HGB Conc 31.9 g/dl (32-36); Mean Corpuscular Hemoglobin 27.8 pg (26-34); Mean Platelet Volume 9.2 fl (7.4-10.4); Platelet Count Result 419 k/mm3 (150-375); Red Blood Count 3.24 M/mm3 (4.2-5.4); Red Cell Distribution Width 13.3 % (11.5-14.5); White Blood Count 7.4 K/mm3 (4.5-10.0)
[2021-12-04 05:40] LABS: Alanine Aminotransferase 48 U/L (6-35); Albumin Level 3.3 g/dL (3.5-5.1); Alkaline Phosphatase 118 U/L (38-126); Anion Gap 13 mmol/L (8-16); Aspartate Amino Transferase 37 U/L (14-36); Bilirubin,Total 0.3 mg/dL (0.2-1.3); Blood Urea Nitrogen 4 mg/dL (7-17); Calcium 8.3 mg/dL (8.4-10.2); Carbon Dioxide 31 mmol/L (22-30); Chloride 99 mmol/L (98-107); Estimated CRCL calculation 103 ml/min; Estimated Glomerular Filt Rate > 60; Glucose 118 mg/dL (65-110); Sodium 143 mmol/L (137-145)
[2021-12-04] MEDS: DORNASE ALFA INH SOLN 1 MG/ML 2.5 ML AMP 2.5 MG INHALATION ×2 (07:41→20:20)
[2021-12-04] MEDS: ATORVASTATIN 40 MG TABLET PO (08:26)
[2021-12-04] MEDS: ENOXAPARIN 40 MG/0.4 ML SYRINGE SUB-Q (08:26)
[2021-12-04] MEDS: FLUoxetine HCL 20 MG CAPSULE 40 MG PO (08:26)
[2021-12-04] MEDS: POTASSIUM CHLORIDE 20 MEQ TABLET 40 MEQ PO (08:26)
[2021-12-04] MEDS: FUROSEMIDE 20 MG TABLET PO (08:27)
[2021-12-04] MEDS: PANTOPRAZOLE 40 MG TABLET PO (08:27)
[2021-12-04] MEDS: guaiFENesin 12 HR 600 MG TABCR PO ×2 (08:27→20:23)
[2021-12-04] MEDS: THERAPEUTIC MULTIVITAMINS/MINERALS TAB (*BKC) 1 TABLET PO (08:27)
[2021-12-04] MEDS: lisinopriL 20 MG TABLET PO (08:27)
--- NOTE | 2021-12-04 10:13 | PM.IMPN ---
Progress Note: A&P Assessment and Plan (1) Necrotizing pneumonia: Code(s): J85.0 - Gangrene and necrosis of lung Status: Acute Assessment and Plan: Patient failed outpatient therapy with azithromycin and Levaquin. COVID and influenza swabs were negative. Does have exposure to turtles and parakeets so consider zoonotic infection. Currently on doxycycline, vancomycin and Zosyn. Sputum NGTD. BCx NGTD. TB negative. MBS showing normal swallowing ability. Clinically better. On room air now. Continue Pulmozyme and Albuterol. Continue abx. Wireless Watcher consulted and appreciate their input. MRSA nasal swab pending. Literature review recommended IV abx until clinically improved then oral with Augmentin +/- MRSA coverage for a total of 3 weeks. Increase activity. Home tomorrow (2) COPD (chronic obstructive pulmonary disease): Code(s): J44.9 - Chronic obstructive pulmonary disease, unspecified Status: Acute Assessment and Plan: No wheezing. Continue with albuterol. Only on rescue inhaler at home. Pulm following (3) Hypertension: Code(s): I10 - Essential (primary) hypertension Status: Acute Assessment and Plan: Patient's blood pressure was reviewed on 12/04 Blood pressure remains well controlled. Will continue current medications with lisinopril. (4) Anxiety: Code(s): F41.9 - Anxiety disorder, unspecified Status: Acute Assessment and Plan: Mood is stable. Continue with alprazolam. (5) Depression: Qualifiers: Active/Remission status: currently active Depression Type: major depressive disorder Major depression episode severity: mild Major depression recurrence: recurrent Qualified Code(s): F33.0 - Major depressive disorder, recurrent, mild Code(s): F32.9 - Major depressive disorder, single episode, unspecified Status: Acute Assessment and Plan: Stable. Continue Prozac and Zyprexa. Subjective Date/time seen: 12/04/21 10:14 Interval history: 56yo female with COPD, HTN here for necrotizing PNA. Patient still with productive cough of yellow-green sputum. Patient feels better overall. No nausea or vomiting. She denies chest pain but does have chest wall discomfort with the cough. She was having urinary frequency initially but that has resolved. She is up to the bedside commode. Exam Narrative: AF 98.4 139/69 95 22 94% ra Gen - NARD Chest - CTA bilaterally, nml RR CV - RRR S1/S2 Abd - Soft, NT/ND, Positive BS Ext - no pedal edema Psych - Nml mood and affect Skin - Warm and dry. No rashes Objective Data Vital Signs Vital Signs: Vital Signs - 24 hr 12/03/21 16:00 12/03/21 17:22 12/03/21 20:18 Temperature 98.6 F 98.7 F Pulse Rate 96 103 H 105 H Respiratory Rate 20 19 18 Blood Pressure 127/58 L 134/70 Pulse Oximetry 98 97 Oxygen Delivery Oxygen Flow Rate 12/03/21 20:23 12/03/21 20:26 12/03/21 20:00 Temperature Pulse Rate 105 H 100 Respiratory Rate 18 Blood Pressure Pulse Oximetry 94 Oxygen Delivery Nasal Cannula Room Air Oxygen Flow Rate 1 12/03/21 20:35 12/04/21 02:02 12/04/21 02:10 Temperature 99.5 F Pulse Rate 108 H 92 95 Respiratory Rate 30 H 18 18 Blood Pressure 143/72 H Pulse Oximetry Oxygen Delivery Oxygen Flow Rate 12/04/21 07:41 12/04/21 08:24 12/04/21 08:25 Temperature 98.4 F Pulse Rate 96 95 Respiratory Rate 18 22 H Blood Pressure 139/69 Pulse Oximetry 94 94 Oxygen Delivery Room Air Oxygen Flow Rate Intake/Output Intake/Output: Intake & Output 12/01/21 12/02/21 12/03/21 12/04/21 23:59 23:59 23:59 23:59 Intake Total 915 2920 3340 2330 Output Total 500 3950 4900 1100 Balance 415 1030 1560 1230 Meds/Results Medications: Active Medications Generic Name Dose Route Start Last Admin Trade Name Freq PRN Reason Stop Dose Admin Acetaminophen 650 mg 12/02/21 12:53 12/04/21 03:55
[2021-12-04] MEDS: DOXYCYCLINE 100 MG/NS 100 ML 100 MG/100 ML BAG IVPB (12:45)
[2021-12-04] MEDS: ONDANSETRON INJ 4 MG/2 ML VIAL IV PUSH (14:53)
[2021-12-04] MEDS: OLANZapine 5 MG TABLET 10 MG PO (20:23)
[2021-12-04] MEDS: ALPRAZolam (*CRX) 0.5 MG TABLET 1 MG PO (20:25)
[2021-12-04 21:50] LABS: Vancomycin Trough 19.3 ug/mL (10.0-20.0)
[2021-12-05] VITALS (14 sets, daily range): BP systolic 117–128; BP diastolic 63–70; PULSE 82–103; RESP 18–22; TEMP 36.6–37.2; O2SAT 92–95
[2021-12-05] MEDS: PIPERACILLIN/TAZOBACTAM SOD 4.5 GM in SODIUM CHLORIDE 0.9% IV 100 ML 200 ML IVPB ×5 (00:39→23:46)
[2021-12-05] MEDS: ACETAMINOPHEN 325 MG TABLET 650 MG PO ×3 (00:43→18:03)
[2021-12-05] MEDS: DOXYCYCLINE 100 MG/NS 100 ML 100 MG/100 ML BAG IVPB ×2 (01:07→11:56)
[2021-12-05] MEDS: ALBUTEROL SULFATE NEB 2.5 MG/3 ML INH INHALATION ×4 (01:44→20:17)
[2021-12-05] MEDS: guaiFENesin/DEXTROMETHORPHAN 10 ML UDC 5 ML PO ×3 (02:08→18:55)
[2021-12-05 06:54] LABS: Alanine Aminotransferase 46 U/L (6-35); Albumin Level 3.3 g/dL (3.5-5.1); Alkaline Phosphatase 111 U/L (38-126); Anion Gap 14 mmol/L (8-16); Aspartate Amino Transferase 42 U/L (14-36); Bilirubin,Total 0.2 mg/dL (0.2-1.3); Blood Urea Nitrogen 4 mg/dL (7-17); Calcium 8.2 mg/dL (8.4-10.2); Carbon Dioxide 30 mmol/L (22-30); Chloride 98 mmol/L (98-107); Estimated CRCL calculation 103 ml/min; Estimated Glomerular Filt Rate > 60; Glucose 116 mg/dL (65-110); Potassium 3.4 mmol/L (3.4-5.0); Sodium 142 mmol/L (137-145)
[2021-12-05] MEDS: PANTOPRAZOLE 40 MG TABLET PO (08:09)
[2021-12-05] MEDS: ENOXAPARIN 40 MG/0.4 ML SYRINGE SUB-Q (08:09)
[2021-12-05] MEDS: ATORVASTATIN 40 MG TABLET PO (08:09)
[2021-12-05] MEDS: FLUoxetine HCL 20 MG CAPSULE 40 MG PO (08:09)
[2021-12-05] MEDS: THERAPEUTIC MULTIVITAMINS/MINERALS TAB (*BKC) 1 TABLET PO (08:10)
[2021-12-05] MEDS: guaiFENesin 12 HR 600 MG TABCR PO ×2 (08:10→21:10)
[2021-12-05] MEDS: FUROSEMIDE 20 MG TABLET PO (08:10)
[2021-12-05] MEDS: lisinopriL 20 MG TABLET PO (08:10)
--- NOTE | 2021-12-05 09:05 | PM.PNPUL ---
Progress Note: A&P Assessment and Plan (1) Necrotizing pneumonia: Code(s): J85.0 - Gangrene and necrosis of lung Status: Acute Assessment and Plan: a 56-year-old female former smoker, with a history of obesity presented with a 2 week history of cough fever chills and sputum production. Diagnostic studies have shown right lower lobe consolidations with evidence of central necrosis. The patient has improved on 3 antibiotics, which are doxycycline Zosyn and vancomycin. She continues to have a cough with sputum production but less than before. She is afebrile and not requiring supplemental oxygen. on admission the patient had elevated liver enzymes which in conjunction with the negative sputum culture for common bacteria may suggest atypical pneumonia like chlamydia. Of note the patient has had 7 parakeets at home and chlamydia psittacosis although rare is a consideration. Video swallow study and negative for aspiration. Plan: will order chlamydia PCR on nasopharyngeal swab, urine Legionella antigen. Continue with current antibiotic regimen for now, continue with DVT prophylaxis. (2) COPD (chronic obstructive pulmonary disease): Code(s): J44.9 - Chronic obstructive pulmonary disease, unspecified Status: Acute (3) Obesity: Code(s): E66.9 - Obesity, unspecified Status: Acute (4) Anxiety: Code(s): F41.9 - Anxiety disorder, unspecified Status: Acute (5) GERD (gastroesophageal reflux disease): Code(s): K21.9 - Gastro-esophageal reflux disease without esophagitis Status: Acute Subjective Date/time seen: 12/05/21 09:05 This 56-year-old female presented with 2 week history of cough shortness of breath fever chills and sputum production. She was diagnosed with right lower lower lobe cavitary pneumonia and has been on 3 antibiotics including doxycycline, Zosyn and vancomycin. Prior to coming to the hospital she received 2 courses of antibiotics as well as steroids on an outpatient basis. Currently she is doing much better. She continues to have cough with yellow sputum production but significantly less than before. She is not on supplemental oxygen. Chest CT showed right lower lobe consolidations with central necrosis. There was a similar lesion in the superior segment of the right lower lobe. Patient has history of COPD bipolar disorder. She cares for 7 parakeets at home. Review of Systems Review of Systems: All system review is negative except as noted in HPI and below Exam Narrative: GENERAL APPEARANCE: Well developed, well nourished, alert and cooperative, and appears to be in no acute distress while breathing ambient air SKIN: Inspection of the skin reveals no rashes, ulcerations or petechiae. HEENT: Sclerae anicteric and conjunctivae pink and moist. Extraocular movements were intact and pupils were equal, round, and reactive to light. The oral mucosa, hard and soft palate, tongue and posterior pharynx were normal. NECK: Supple. There was no thyroid enlargement, and no tenderness, or masses were felt. CHEST: Normal AP diameter and normal contour without any kyphoscoliosis. LUNGS: Auscultation of the lungs revealed normal breath sounds without any other adventitious sounds or rubs. CARDIAC: There was a regular rate and rhythm without any murmurs, gallops, rubs. ABDOMEN: Soft and nontender with normal bowel sounds. There was no organomegaly. LYMPH NODES: No lymphadenopathy was appreciated in the neck. EXTREMITIES: No cyanosis, clubbing or edema. NEUROLOGIC: Alert and oriented x 3. Normal affect. Objective Data Vital Signs Vital Signs: Vital Signs - 24 hr 12/04/21 15:41 12/04/21 13:36 12/04/21 13:46 Temperature 36.9 C Pulse Rate 97 96 100 Respiratory Rate 18 18 18 Blood Pressure 116/58 L Pulse Oximetry 93 Oxygen Delivery Fraction of Inspired Oxygen 12/04/21 20:20 12/04/21 20:20 12/04/21 20:35 Temperature Pulse Rate 99 99 97 Res
--- NOTE | 2021-12-05 09:55 | PM.IMPN ---
Progress Note: A&P Assessment and Plan (1) Necrotizing pneumonia: Code(s): J85.0 - Gangrene and necrosis of lung Status: Acute Assessment and Plan: Patient failed outpatient therapy with azithromycin and Levaquin. COVID and influenza swabs were negative. Does have exposure to turtles and parakeets so consider zoonotic infection. Currently on doxycycline, vancomycin and Zosyn. Sputum negative. BCx NGTD. TB negative. MBS showing normal swallowing ability. Clinically better. Remains on room air. Continue Pulmozyme and Albuterol. Continue abx. Records Section Supervisor consulted and appreciate their input. MRSA nasal swab canceled. Chl psittacosis and Legionella ordered. Continue IV abx with plans for Augmentin + Doxy at discharge for a total of 3 weeks. Increase activity. (2) COPD (chronic obstructive pulmonary disease): Code(s): J44.9 - Chronic obstructive pulmonary disease, unspecified Status: Acute Assessment and Plan: No wheezing. Continue with albuterol. Only on rescue inhaler at home. Pulm following (3) Hypertension: Code(s): I10 - Essential (primary) hypertension Status: Acute Assessment and Plan: Patient's blood pressure was reviewed on 12/05 Blood pressure remains well controlled. Will continue current medications with lisinopril. (4) Anxiety: Code(s): F41.9 - Anxiety disorder, unspecified Status: Acute Assessment and Plan: Mood is stable. Continue with alprazolam. (5) Depression: Qualifiers: Active/Remission status: currently active Depression Type: major depressive disorder Major depression episode severity: mild Major depression recurrence: recurrent Qualified Code(s): F33.0 - Major depressive disorder, recurrent, mild Code(s): F32.9 - Major depressive disorder, single episode, unspecified Status: Acute Assessment and Plan: Stable. Continue Prozac and Zyprexa. Subjective Date/time seen: 12/05/21 09:55 Interval history: 56yo female with COPD, HTN here for necrotizing PNA. Cough productive yellow sputum but improving overall. Did have trouble sleeping last night Due to coughing. She is walking to the bathroom. Eating better. No nausea or vomiting. Exam Narrative: AF 97.9 128/63 96 18 95% ra Gen - NARD Chest - CTA bilaterally, nml RR CV - RRR S1/S2 Abd - Soft, obese, NT Ext - no pedal edema Psych - Nml mood and affect Skin - Warm and dry. No rashes Objective Data Vital Signs Vital Signs: Vital Signs - 24 hr 12/04/21 15:41 12/04/21 13:36 12/04/21 13:46 Temperature 98.4 F Pulse Rate 97 96 100 Respiratory Rate 18 18 18 Blood Pressure 116/58 L Pulse Oximetry 93 Oxygen Delivery Fraction of Inspired Oxygen 12/04/21 20:20 12/04/21 20:20 12/04/21 20:35 Temperature Pulse Rate 99 99 97 Respiratory Rate 20 20 Blood Pressure Pulse Oximetry 94 Oxygen Delivery Room Air Fraction of Inspired Oxygen 21 12/04/21 22:00 12/04/21 20:30 12/05/21 01:44 Temperature 98.2 F Pulse Rate 105 H 101 H Respiratory Rate 18 20 Blood Pressure 126/58 L Pulse Oximetry 93 Oxygen Delivery Room Air Fraction of Inspired Oxygen 12/05/21 01:54 12/05/21 06:00 12/05/21 08:17 Temperature 97.9 F Pulse Rate 103 H 96 Respiratory Rate 20 18 18 Blood Pressure 128/63 Pulse Oximetry 95 95 Oxygen Delivery Room Air Fraction of Inspired Oxygen Intake/Output Intake/Output: Intake & Output 12/02/21 12/03/21 12/04/21 12/05/21 23:59 23:59 23:59 23:59 Intake Total 2920 3340 3610 2880 Output Total 3950 4900 1700 3900 Balance -1030 -1560 1910 -1020 Meds/Results Medications: Active Medications Generic Name Dose Route Start Last Admin Trade Name Javad PRN Reason Stop Dose Admin Acetaminophen 650 mg 12/02/21 12:53 12/05/21 00:43 Acetaminophen 325 Mg Tablet PO 650 mg Q6H PRN Administration Mild Pain (1-3) or Fever
[2021-12-05] MEDS: DORNASE ALFA INH SOLN 1 MG/ML 2.5 ML AMP 2.5 MG INHALATION ×2 (10:01→20:17)
[2021-12-05 14:26] LABS: Pneumococcal Antigen Urine Not Detected (Not Detected)
[2021-12-05] MEDS: ALPRAZolam (*CRX) 0.5 MG TABLET 1 MG PO (21:10)
[2021-12-05] MEDS: OLANZapine 5 MG TABLET 10 MG PO (21:10)
[2021-12-06] VITALS (10 sets, daily range): BP systolic 111–120; BP diastolic 63–64; PULSE 82–102; RESP 18–20; TEMP 36.2–37.1; O2SAT 93–100
[2021-12-06] MEDS: DOXYCYCLINE 100 MG/NS 100 ML 100 MG/100 ML BAG IVPB ×2 (00:43→12:00)
[2021-12-06] MEDS: ALBUTEROL SULFATE NEB 2.5 MG/3 ML INH INHALATION ×3 (02:10→13:46)
[2021-12-06] MEDS: PIPERACILLIN/TAZOBACTAM SOD 4.5 GM in SODIUM CHLORIDE 0.9% IV 100 ML 200 ML IVPB ×2 (05:24→11:24)
[2021-12-06 05:40] LABS: Alanine Aminotransferase 50 U/L (6-35); Albumin Level 3.4 g/dL (3.5-5.1); Alkaline Phosphatase 112 U/L (38-126); Anion Gap 10 mmol/L (8-16); Aspartate Amino Transferase 48 U/L (14-36); Bilirubin,Total 0.4 mg/dL (0.2-1.3); Blood Urea Nitrogen 5 mg/dL (7-17); Calcium 8.3 mg/dL (8.4-10.2); Carbon Dioxide 31 mmol/L (22-30); Chloride 99 mmol/L (98-107); Estimated CRCL calculation 103 ml/min; Estimated Glomerular Filt Rate > 60; Glucose 116 mg/dL (65-110); Potassium 3.7 mmol/L (3.4-5.0); Sodium 140 mmol/L (137-145)
[2021-12-06] MEDS: ACETAMINOPHEN 325 MG TABLET 650 MG PO (06:05)
--- NOTE | 2021-12-06 08:55 | PM.PNPUL ---
Progress Note: A&P Assessment and Plan (1) Necrotizing pneumonia: Code(s): J85.0 - Gangrene and necrosis of lung Status: Acute Assessment and Plan: a 56-year-old female former smoker, with a history of obesity presented with a 2 week history of cough fever chills and sputum production. Diagnostic studies have shown right lower lobe consolidations with evidence of central necrosis. The patient has improved on 3 antibiotics, which are doxycycline Zosyn and vancomycin. She continues to have a cough with sputum production but less than before. She is afebrile and not requiring supplemental oxygen. on admission the patient had elevated liver enzymes which in conjunction with the negative sputum culture for common bacteria may suggest atypical pneumonia like chlamydia. Of note the patient has had 7 parakeets at home and chlamydia psittacosis although rare is a consideration. Video swallow study negative for aspiration. Plan: Okay to discharge patient home on doxycycline and Augmentin for 3 weeks. Patient needs to return to pulmonary clinic for follow-up in approximately 3-4 weeks. Case was discussed with Dr. Park. (2) COPD (chronic obstructive pulmonary disease): Code(s): J44.9 - Chronic obstructive pulmonary disease, unspecified Status: Acute (3) Obesity: Code(s): E66.9 - Obesity, unspecified Status: Acute (4) Anxiety: Code(s): F41.9 - Anxiety disorder, unspecified Status: Acute (5) GERD (gastroesophageal reflux disease): Code(s): K21.9 - Gastro-esophageal reflux disease without esophagitis Status: Acute Subjective Date/time seen: 12/06/21 08:55 Patient has no new respiratory symptoms. She has had mild productive cough with light yellow phlegm. She is afebrile she has no night sweats. She is on room air. Review of Systems Review of Systems: All system review is negative except as noted in HPI and below Exam Narrative: GENERAL APPEARANCE: Well developed, well nourished, alert and cooperative, and appears to be in no acute distress while breathing ambient air SKIN: Inspection of the skin reveals no rashes, ulcerations or petechiae. HEENT: Sclerae anicteric and conjunctivae pink and moist. Extraocular movements were intact and pupils were equal, round, and reactive to light. The oral mucosa, hard and soft palate, tongue and posterior pharynx were normal. NECK: Supple. There was no thyroid enlargement, and no tenderness, or masses were felt. CHEST: Normal AP diameter and normal contour without any kyphoscoliosis. LUNGS: Auscultation of the lungs revealed normal breath sounds without any other adventitious sounds or rubs. CARDIAC: There was a regular rate and rhythm without any murmurs, gallops, rubs. ABDOMEN: Soft and nontender with normal bowel sounds. There was no organomegaly. LYMPH NODES: No lymphadenopathy was appreciated in the neck. EXTREMITIES: No cyanosis, clubbing or edema. NEUROLOGIC: Alert and oriented x 3. Normal affect. Objective Data Vital Signs Vital Signs: Vital Signs - 24 hr 12/05/21 09:57 12/05/21 10:02 12/05/21 10:20 Temperature Pulse Rate 90 93 94 Respiratory Rate 18 18 Blood Pressure Pulse Oximetry 94 Oxygen Delivery Room Air 12/05/21 13:24 12/05/21 13:30 12/05/21 14:06 Temperature 37.2 C Pulse Rate 84 82 98 Respiratory Rate 18 18 22 H Blood Pressure 128/70 Pulse Oximetry 92 Oxygen Delivery 12/05/21 20:21 12/05/21 20:22 12/05/21 20:42 Temperature Pulse Rate 94 90 Respiratory Rate 20 20 Blood Pressure Pulse Oximetry 95 Oxygen Delivery Room Air 12/05/21 22:00 12/06/21 02:21 12/06/21 02:30 Temperature 36.8 C Pulse Rate 93 92 88 Respiratory Rate 18 20 20 Blood Pressure 117/64 Pulse Oximetry 95 Oxygen Delivery 12/06/21 05:19 Temperature 37.1 C Pulse Rate 102 H Respiratory Rate 20 Blood Pressure 111/63 Pulse Oximetry 93 Oxygen Delivery Intake/Ou
[2021-12-06] MEDS: ATORVASTATIN 40 MG TABLET PO (09:20)
[2021-12-06] MEDS: THERAPEUTIC MULTIVITAMINS/MINERALS TAB (*BKC) 1 TABLET PO (09:20)
[2021-12-06] MEDS: FUROSEMIDE 20 MG TABLET PO (09:20)
[2021-12-06] MEDS: lisinopriL 20 MG TABLET PO (09:20)
[2021-12-06] MEDS: ENOXAPARIN 40 MG/0.4 ML SYRINGE SUB-Q (09:20)
[2021-12-06] MEDS: guaiFENesin 12 HR 600 MG TABCR PO (09:21)
[2021-12-06] MEDS: FLUoxetine HCL 20 MG CAPSULE 40 MG PO (09:21)
[2021-12-06] MEDS: PANTOPRAZOLE 40 MG TABLET PO (09:21)
[2021-12-06] MEDS: DORNASE ALFA INH SOLN 1 MG/ML 2.5 ML AMP 2.5 MG INHALATION (09:38)
[2021-12-06 11:17] LABS: ANA Cascade Screen Negative (Negative)
--- NOTE | 2021-12-06 13:00 | PM.DS ---
DS: Admitting Diagnosis Discharge Date 12/06/21 Admitting Diagnosis Shortness of breath DS: Discharge Diagnosis Discharge Diagnosis (1) Necrotizing pneumonia: Code(s): J85.0 - Gangrene and necrosis of lung Status: Acute (2) COPD (chronic obstructive pulmonary disease): Code(s): J44.9 - Chronic obstructive pulmonary disease, unspecified Status: Acute (3) Hypertension: Code(s): I10 - Essential (primary) hypertension Status: Acute (4) Anxiety: Code(s): F41.9 - Anxiety disorder, unspecified Status: Acute (5) Depression: Qualifiers: Active/Remission status: currently active Depression Type: major depressive disorder Major depression episode severity: mild Major depression recurrence: recurrent Qualified Code(s): F33.0 - Major depressive disorder, recurrent, mild Code(s): F32.9 - Major depressive disorder, single episode, unspecified Status: Acute DS: Summary Hospital Course Reason for hospitalization: 56yo female with COPD, HTN here for necrotizing PNA. Please see H&P for details Hospital Course: Patient was diagnosed with PNA but failed outpatient therapy with azithromycin and Levaquin. COVID and influenza swabs were negative. CXR showing bibasilar airspace disease. CTA chest showing no PE but consolidation of multiple cavitary masses in the RLL and RML. She does have exposure to turtles and parakeets so we considered zoonotic infection. Treated with doxycycline, vancomycin and Zosyn. Fevers on admission but fever resolved. Sputum negative. BCx NGTD. TB negative. MBS showing normal swallowing ability. RF and HENRIQUE negative. Pulmonary consulted. Clinically better. Some studies still pending including Chl psittacosis and Legionella. She had clinical improvement and was able to be discharged home on 12/06/21 Status at Discharge Cognitive/behavioral status at discharge: Stable Time Spent with Patient Time attestation: Total time spent providing and/or coordinating discharge services: 35 minutes Time spent: Greater than 30 minutes Exam Narrative: AF 98.8 111/63 87 18 95% ra Gen - NARD Chest - CTA bilaterally, nml RR CV - RRR S1/S2 Abd - Soft, obese, NT Ext - no pedal edema Psych - Nml mood and affect Skin - Warm and dry. No rashes DS: Data Data Completed and Pending Labs on day of discharge: Labs from last 24 hours 12/06/21 12/01/21 12/01/21 05:22 21:03 17:15 Sodium 140 Potassium 3.7 Chloride 99 Carbon Dioxide 31 H Anion Gap 10 BUN 5 L Creatinine 0.70 Estim Creat Clear Calc 103 Estimated GFR > 60 Glucose 116 H Calcium 8.3 L Total Bilirubin 0.4 AST 48 H ALT 50 H Alkaline Phosphatase 112 Total Protein 7.0 Albumin 3.4 L HENRIQUE Scrn Qualitative Negative HENRIQUE Pinckard Interp see below Urine Pneumococcal Ag Not detected Preliminary micro results at discharge 12/01/21 17:15 Blood Culture - Preliminary Blood 12/01/21 17:15 Blood Culture - Preliminary Blood Discharge Plan Discharge Attending physician on discharge: Leonel Park Consulting providers: Sandra Ellsworth Discharging Clinician: Leonel Park Anticipated Discharge Date/Time: 12/06/21 13:09 Patient Disposition: Home, Self-Care Activity: as tolerated Diet: heart healthy Discharge Instructions: Please complete your antibiotic course even if you are starting to feel well. Contact your doctor or call 911 and come to the Emergency Room if you have fevers, increasing shortness of breath or other worrisome symptoms. Follow-up with your primary care provider in 1-2 weeks. Please call for appointment. Follow-up with the Licensed Practical Nurse Instructor in 3-4 weeks. Please call for an appointment. Thank you for using [facility] for your health care needs. Patient Instructions: Antibiotic Form Stand Alone Forms: General Discharge Information Follow-up/Referr
[2021-12-06 14:14] LABS: HIV 1/2 Ab P24 Ag Result Negative (Negative)
--- NOTE | 2021-12-07 09:53 | PC.NURSE ---
HIV- negative. Dr. Vivian borja.
[2021-12-08 19:35] LABS: Legionella pneumophila Ag Ur Not Detected (Not Detected)
--- NOTE | 2021-12-14 10:39 | PC.NURSE ---
Urine legionella is negative. Urine Histoplasmosis is WNL at <0.2 DR. Park aware of the findings.
== END 2021-12-06 15:44 | disposition home or self-care (01) | DRG 137 ==
LOC: ANHIMU 15:29 → ANH2MED 12-06 13:10 → ANHIMU 12-08 16:02
PROVIDERS: Internal Medicine Critical Care Medicine; Internal Medicine Pulmonary Disease; Nurse Practitioner; Admitting Provider Family Medicine; PCP Physician Assistant; Visit Provider Internal Medicine
DX: J85.0 Gangrene and necrosis of lung (principal); I11.0 Hypertensive heart disease with heart failure; I50.9 Heart failure, unspecified; F33.0 Major depressive disorder, recurrent, mild; J44.0 Chronic obstructive pulmonary disease with (acute) lower respiratory infection; E78.5 Hyperlipidemia, unspecified; K21.9 Gastro-esophageal reflux disease without esophagitis; F41.9 Anxiety disorder, unspecified; Z87.891 Personal history of nicotine dependence
CPT/HCPCS: 36415; 80048; 80053; 80202; 82565; 83735; 85025; 85027; 86038; 86430; 86480; 86703; 87040; 87070; 87081; 87205; 87385; 87449; 87486; 87899; 92610; 92611; 94640; 94667; 96365; 96366; 96367; 96372; 96375; A9270; G0378; G0379; G0432; J1650; J2405; J2543; J3370; J3475

== ENCOUNTER 2021-12-23 21:14 | Emergency (ER) | payer OTHER, SELFPAY ==
[2021-12-23 22:03] VITALS: BP 140/80; PULSE 80; RESP 18; TEMP 37; O2SAT 96
--- NOTE | 2021-12-23 22:27 | ED.SKABFB ---
HPI - Skin/Abscess/Foreign Bdy General Chief complaint: Skin/Abscess/Foreign Body Stated complaint: swelling & tingling on back of R knee Time Seen by Provider: 12/23/21 21:16 Source: patient and RN notes reviewed Mode of arrival: ambulatory Limitations: no limitations History of Present Illness MD complaint: insect bite/sting Onset (ago): hour(s) (4) Tetanus up to date: unsure Location: RLE Severity: mild Quality: dull Pain Consistency: constant Relieving factors: none Exacerbating factors: none Context: witnessed insect bite Associated symptoms: denies other symptoms Treatments prior to arrival: none Related Data Home Medications Medication Instructions Recorded Confirmed lisinopril 20 mg tablet 20 mg PO DAILY 04/13/19 12/23/21 olanzapine 10 mg tablet 10 mg PO HS 04/13/19 12/23/21 omeprazole magnesium 20 mg 20 mg PO DAILY 04/13/19 12/23/21 tablet,delayed release (Prilosec OTC) atorvastatin 40 mg tablet 40 mg PO DAILY 06/01/21 12/23/21 fluoxetine 40 mg capsule 40 mg PO DAILY 06/01/21 12/23/21 furosemide 20 mg tablet 20 mg PO DAILY 11/30/21 12/23/21 multivitamin with minerals 1 tablet PO DAILY 12/01/21 12/23/21 Allergies Allergy/AdvReac Type Severity Reaction Status Date / Time No Known Allergies Allergy Unknown Verified 11/30/21 08:51 Review of Systems Review of Systems: All systems reviewed & are unremarkable except as noted in HPI and below Constitutional: Constitutional: Reports no additional constitutional complaints Eyes: Eyes: Reports no additional eye complaints ENT: Reports system reviewed and no additional complaints, except as documented Cardiovascular: Cardiovascular: Reports no additional cardiovascular complaints Respiratory: Respiratory: Reports no additional respiratory complaints Gastrointestinal: Gastrointestinal: Reports no additional gastrointestinal complaints Genitourinary: Genitourinary: Reports no additional female genitourinary complaints Musculoskeletal: Musculoskeletal: Reports no additional musculoskeletal complaints Comments: superficial reddish insect bite of post right knee. no acute swelling or pus. Integumentary/Breasts: Skin/Breast: Reports system reviewed and no additional complaints, except as docu Neurologic: Reports system reviewed and no additional complaints, except as documented Psychiatric: Psychiatric: Reports no additional psychiatric complaints Endocrine: Endocrine: Reports no additional endocrine complaints Hematologic/Lymphatic: Hematologic/Lymphatic: Reports no additional hematologic/lymphatic complaints Allergic/Immunologic: Allergic/Immunologic: Reports no additional allergic/immunologic complaints PMFSH Past Medical History Medical History Anxiety Asthma Congestive heart failure COPD (chronic obstructive pulmonary disease) Depression Hx MRSA infection Hypertension Insect bite Surgical History Surgical History History of cholecystectomy History of hysterectomy History of incision and drainage Several areas to left forearm History of tubal ligation Family History Family History Father Heart disease Mother , Mother at age 60. Diabetes mellitus Sibling Rheumatoid arthritis Has RA in her hands, sees checker dump grounds. Social History Social History Social History: The patient is but lives with her boyfriend now and her daughter and granddaughter. The patient has 2 children. She denies any alcohol or any other illicit drugs. The patient works in the [employer] And she is a former smoker. She does not have a durable power county attorney for healthcare. Code status full code Smoking packs per day: 1.5 Smoking cigarettes per day: 30.0 Years smoked: 30 Smoking pack-years: 45.00
[2021-12-23] MEDS: IBUPROFEN 400 MG TABLET 800 MG PO (22:29)
[2021-12-23 22:36] VITALS: BP 133/88; PULSE 88; RESP 18; TEMP 37.2; O2SAT 99
== END 2021-12-23 22:39 | disposition home or self-care (01) ==
PROVIDERS: Emergency Provider Emergency Medicine; PCP Physician Assistant
DX: S80.861A Insect bite (nonvenomous), right lower leg, initial encounter (principal); W57.XXXA Bitten or stung by nonvenomous insect and other nonvenomous arthropods, initial encounter
CPT/HCPCS: 99283; A9270

== ENCOUNTER 2022-01-20 19:59 | Emergency (ER) | payer OTHER, SELFPAY ==
[2022-01-20] VITALS (7 sets, daily range): BP systolic 140–176; BP diastolic 79–94; PULSE 70–95; RESP 20; TEMP 37; O2SAT 96–98
--- NOTE | 2022-01-20 21:08 | ED.GENADULT ---
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 And this occurred around 12 noon. Her boss told her she could go back to work until she was seen by . She said she was seen by her primary care Dr. Rhianna Trejo 2 weeks ago at the [facility]. She had discussed her dizziness with her primary care and wanted her to be referred to neurologist. She is awaiting that referral. She says she gets dizzy lightheaded when she stands only last for less than a minute. She says been going on for a month happens about every other day she feels lightheaded or woozy. She also complained of tiny hard knot in her right forearm that she noticed today. She said it was a little sore earlier but not sore now. She has never noticed this before. Past medical history S: She is in the hospital a little over a month ago for pneumonia. Pneumonia was secondary to her raising rascon and she has been seeing a seamstress fitter. Related Data Home Medications Medication Instructions Recorded Confirmed lisinopril 20 mg tablet 20 mg PO DAILY 04/13/19 01/20/22 olanzapine 10 mg tablet 10 mg PO HS 04/13/19 01/20/22 omeprazole magnesium 20 mg 20 mg PO DAILY 04/13/19 01/20/22 tablet,delayed release (Prilosec OTC) atorvastatin 40 mg tablet 40 mg PO DAILY 06/01/21 01/20/22 fluoxetine 40 mg capsule 40 mg PO DAILY 06/01/21 01/20/22 furosemide 20 mg tablet 20 mg PO DAILY 11/30/21 01/20/22 multivitamin with minerals 1 tablet PO DAILY 12/01/21 01/20/22 Allergies Allergy/AdvReac Type Severity Reaction Status Date / Time No Known Allergies Allergy Unknown Verified 12/28/21 13:47 Review of Systems Review of Systems: All systems reviewed & are unremarkable except as noted in HPI and below Constitutional: Constitutional: Denies anorexia, Denies fatigue, Denies fever(s), Denies headache(s), Denies lethargy, Denies malaise and Denies weakness Eyes: Eyes: Denies blurry vision Comments: No problems with her vision. And no changes. ENT: Reports system reviewed and no additional complaints, except as documented Cardiovascular: Cardiovascular: Reports as per HPI, Reports no additional cardiovascular complaints, Denies chest pain, Denies syncope ( Said she almost passed out today), Denies irregular heart rhythm, Denies leg edema, Reports lightheadedness, Denies palpitations, Denies dyspnea and Denies orthopnea Respiratory: Respiratory: Reports no additional respiratory complaints, Reports no additional respiratory complaints, Denies chest congestion, Denies cough, Denies pain with cough and Denies dyspnea Gastrointestinal: Gastrointestinal: Reports no additional gastrointestinal complaints, Denies abdominal pain, Denies change in stool character, Denies coffee ground emesis, Denies constipation, Denies diarrhea and Denies vomiting Genitourinary: Genitourinary: Reports no additional female genitourinary complaints, Denies abnormal menses, Denies hematuria and Reports urinary incontinence Comments: no problems urinating or stooling. Musculoskeletal: Musculoskeletal: Reports no additional musculoskeletal complaints, Reports as per HPI, Denies limited range of motion, Denies muscle weakness, Denies neck pain and Denies numbness Integumentary/Breasts: Skin/Breast: Denies pruritus and Denies rash Neurologic: Reports system reviewed and no additional complaints, except as documented, Reports as per HPI, Denies Normal hearing present, Denies Abnormal speech present, Denies abnormal gait, Denies confusion, Denies vertigo, Reports dizziness, Denies syncope ( Near syncope today), Denies frequent falls, Denies headache(s), Denies lack of coordination, Denies focal wea
[2022-01-20 21:51] LABS: Hematocrit 34.9 % (35.0-49.0); Hemoglobin 11.1 g/dL (12.0-15.0); Mean Corpuscular HGB Conc 31.8 g/dL (32.0-36.0); Mean Corpuscular Volume 88.1 fL (78.0-102.0); Mean Platelet Volume 9.8 fl (9.2-11.8); Platelet Count Result 285 K/mm3 (150-420); Red Blood Count 3.96 M/mm3 (4.20-5.40); Red Cell Distribution Width 14.6 % (11.6-14.4); White Blood Count 6.2 K/mm3 (4.8-10.8)
[2022-01-20 22:07] LABS: Alanine Aminotransferase 25 U/L (14-59); Albumin Level 3.3 g/dL (3.4-5.0); Alkaline Phosphatase 123 U/L (46-116); Anion Gap 8 mmol/L (8-16); Aspartate Amino Transferase 17 U/L (15-37); Bilirubin,Total 0.3 mg/dL (0.00-1.00); Blood Urea Nitrogen 8 mg/dL (7-18); Calcium 8.8 mg/dL (8.5-10.1); Carbon Dioxide 31 mmol/L (21-32); Chloride 105 mmol/L (98-108); Estimated CRCL calculation 97 ml/min; Estimated Glomerular Filt Rate > 60; Glucose 106 mg/dL (70-99); Osmolality Calculated 296 mOsm/kg (285-295); Sodium 144 mmol/L (136-145); Total Protein 6.9 g/dL (6.4-8.2)
[2022-01-20] MEDS: POTASSIUM BICARBONATE 25 MEQ TABEF 50 MEQ PO (22:20)
== END 2022-01-20 22:53 | disposition home or self-care (01) ==
PROVIDERS: Emergency Provider Emergency Medicine; PCP Physician Assistant
DX: E87.6 Hypokalemia (principal); R42 Dizziness and giddiness; S50.851A Superficial foreign body of right forearm, initial encounter; I11.0 Hypertensive heart disease with heart failure; I50.9 Heart failure, unspecified; F41.9 Anxiety disorder, unspecified; F32.9 Major depressive disorder, single episode, unspecified; Z87.891 Personal history of nicotine dependence; X58.XXXA Exposure to other specified factors, initial encounter
CPT/HCPCS: 36415; 80053; 85027; 99283; A9270

== ENCOUNTER 2022-01-26 19:39 | Emergency (ER) | payer OTHER, SELFPAY ==
[2022-01-26] VITALS (14 sets, daily range): BP systolic 128–191; BP diastolic 64–97; PULSE 61–72; RESP 13–21; TEMP 36.4–36.8; O2SAT 90–98
--- NOTE | ~2022-01-26 | XR_ITS ---
XR chest 2V DATE: 01/26/2022 20:40 INDICATION: Left chest pain, shortness of breath TECHNIQUE: PA and lateral views COMPARISON: 12/01/2021 CT pulmonary scan 11/30/2021 portable AP chest FINDINGS: There is dramatic improvement/virtual resolution of consolidation and multiple cavitary mas ses of the right lower lobe since 12/01/2021. Slight blunting of both costophrenic angle suggests minimal bilateral pleural effusions. Heart size is normal. No pulmonary vascular congestion. No pneumothorax. IMPRESSION: Virtually complete resolution of pulmonary consolidation and cavitary lesions of right lo wer lobe since 12/01 2021. Reviewed, dictated and finalized at location A. ERING PLANT SUPERVISOR IMPRESSION: Virtually complete resolution of pulmonary consolidation and cavita ry lesions of right lower lobe since 12/01 2021.
--- NOTE | ~2022-01-26 | CT_ITS ---
EXAMINATION: CT brain wo con DATE: 01/26/2022 20:41 INDICATION: Headache. Hypertension. TECHNIQUE: Computed tomography (CT) of the head was performed without intravenous contrast. The mA wa s adjusted according to patient size. Iterative reconstruction technique was employed. Exam dose: 60 5.33 mGy-cm total exam DLP. COMPARISON: 04/18/2019 CT brain FINDINGS: No intracranial mass lesion or hemorrhage or cerebrovascular accident. No midline shift or mass effect. Normal ventricular size. Normal frank-white matter differentiation. No subdural or epidur al hematoma. The mastoid air cells and included paranasal sinuses are normally developed and aerated. No fracture or bone destruction of the cranial vault. IMPRESSION: No significant abnormality Reviewed, dictated and finalized at Location [facility]. Reviewed, dictated and finalized at location A. TOP SETTER IMPRESSION: No significant abnormality
--- NOTE | 2022-01-26 19:56 | ECG_ITS ---
Measurements Intervals [place] Rate: 60 P: 54 NV: 149 QRS: 13 QRSD: 98 T: 60 QT: 431 QTc: 432 Interpretive Statements SINUS RHYTHM WITHIN NORMAL LIMITS COMPARED TO ECG 12/01/2021 04:20:54 NO SIGNIFICANT CHANGES Electronically Signed On 01-27-2022 20:12:20 CODER OPERATOR by Miguel Balbuena M.D.
--- NOTE | 2022-01-26 20:04 | ED.DIZZY ---
HPI - Dizziness General Chief Complaint: Dizziness Stated Complaint: dizzy, headache, hard to breathe Time Seen by Provider: 01/26/22 19:56 Source: patient Mode of arrival: ambulatory Limitations: no limitations History of Present Illness HPI Narrative: this is a 56-year-old female with history of hypertension presents with episodes of dizziness feels lightheaded with elevated blood pressure, patient currently takes lisinopril for her blood pressure but prior to going to work her blood pressure systolic was 180, presents to the ER with some headache with some some nausea with no chest pain no shortness of breath no abdominal pain no fever chills no blurry vision. Patient denies dysuria no hematuria no flank pain. Patient works for [employer] but felt her blood pressure was elevated and had lightheadedness and dizziness and therefore Left work early today, the patient had similar episode about a week ago and was seen in the emergency department had blood work and evaluate evaluation at that time. MD elicited complaint: dizziness and lightheadedness Timing: gradual onset Severity: moderate Description: sense of movement Related Data Home Medications Medication Instructions Recorded Confirmed lisinopril 20 mg tablet 20 mg PO DAILY 04/13/19 01/26/22 olanzapine 10 mg tablet 10 mg PO HS 04/13/19 01/26/22 omeprazole magnesium 20 mg 20 mg PO DAILY 04/13/19 01/26/22 tablet,delayed release (Prilosec OTC) atorvastatin 40 mg tablet 40 mg PO DAILY 06/01/21 01/26/22 fluoxetine 40 mg capsule 40 mg PO DAILY 06/01/21 01/26/22 multivitamin with minerals 1 tablet PO DAILY 12/01/21 01/26/22 Allergies Allergy/AdvReac Type Severity Reaction Status Date / Time No Known Allergies Allergy Unknown Verified 01/26/22 19:55 Review of Systems Review of Systems: All systems reviewed & are unremarkable except as noted in HPI and below PMFSH Past Medical History Medical History Anxiety Asthma Congestive heart failure COPD (chronic obstructive pulmonary disease) Depression Hx MRSA infection Hypertension Insect bite Surgical History Surgical History History of cholecystectomy History of hysterectomy History of incision and drainage Several areas to left forearm History of tubal ligation Family History Family History Father Heart disease Mother , Mother at age 60. 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 Social History Social History Social History: The patient is but lives with her boyfriend now and her daughter and granddaughter. The patient has 2 children. She denies any alcohol or any other illicit drugs. The patient works in [employer] And she is a former smoker. She does not have a durable power attorney recruiter for healthcare. Code status full code Smoking packs per day: 1.5 Smoking cigarettes per day: 30.0 Years smoked: 30 Smoking pack-years: 45.00 Smoking status: Former smoker Tobacco type: cigarettes Second hand tobacco smoke exposure: Yes Alcohol intake: never Substance use: never Substance use type: does not use Lack of Transportation: No Lack of Food: Sometimes True Current Housing: I Have Housing Concerned About Future Housing: No Difficulty Paying Gas/Electric Bills: No Difficulty Paying for Meds: No Currently Unemployed: No Education: High School Diploma/GED Difficulty w/ Childcare or Family Care: No Spiritual care concerns: No Exam Const: General: healthy appearing Nutritional Appearance: well nourished Orientation/consciousness: patient oriented x3 Limitations: no limitations HENMT: Head: normal to inspection Face and sinus: normal facial exam Mouth: Y
[2022-01-26 20:14] LABS: Basophils Absolute Auto 0.03 K/mm3 (0.00-0.10); Basophils Percent Auto 0.5 % (0.0-1.0); Eosinophils Absolute Auto 0.33 K/mm3 (0.02-0.50); Eosinophils Percent Auto 5.1 % (1.0-6.0); Hematocrit 35.4 % (35.0-49.0); Hemoglobin 11.2 g/dL (12.0-15.0); Immature Granulocyte Absolute 0.01 K/mm3 (0.00-0.00); Immature Granulocyte Percent A 0.2 % (0.0-0.0); Lymphocytes Absolute Auto 2.57 K/mm3 (1.10-4.50); Lymphocytes Percent Auto 39.4 % (18.0-42.0); Mean Corpuscular HGB Conc 31.6 g/dL (32.0-36.0); Mean Corpuscular Hemoglobin 27.5 pg (27.0-31.0); Mean Platelet Volume 9.9 fl (9.2-11.8); Monocytes Absolute Auto 0.35 K/mm3 (0.10-0.90); Monocytes Percent Auto 5.4 % (2.0-11.0); Neutrophils Absolute Auto 3.2 K/mm3 (1.7-7.2); Neutrophils Percent Auto 49.4 % (50.0-70.0); Platelet Count Result 292 K/mm3 (150-420); Red Blood Count 4.07 M/mm3 (4.20-5.40); Red Cell Distribution Width 14.5 % (11.6-14.4); White Blood Count 6.5 K/mm3 (4.8-10.8)
[2022-01-26] MEDS: ONDANSETRON INJ 4 MG/2 ML VIAL IV PUSH (20:24)
[2022-01-26] MEDS: KETOROLAC 30 MG/ML VIAL (*BKC) IV PUSH (20:24)
[2022-01-26] MEDS: ALPRAZolam (*CRX) 0.5 MG TABLET PO (20:26)
[2022-01-26 20:27] LABS: Add Urine Microscopic? NO; Appearance Urine Clear (Clear); Bilirubin Urine Negative (Negative); Blood Urine Negative (Negative); Color Urine Light Yellow (Yellow); Glucose Urine UA Negative (Negative); Ketones Urine Negative (Negative); Leukocyte Esterase Ur Negative LEU/UL (Negative); Nitrate Urine Negative (Negative); Protein Urine Negative (Negative); Urobilinogen Urine 0.2 mg/dL (0.2-1.0)
--- NOTE | 2022-01-26 20:36 | PC.NURSE ---
PT IS IN CT AT THIS TIME. BP IS IMPROVING WITHOUT CARDIAC MEDICATION, VASOTEC WAS HELD PER DR COLLIER. PT WAS AMBULATORY TO RR WITHOUT DIFFICULTY. ICE PACK WAS APPLIED TO HEAD FOR HER HEADACHE REQUESTED. MEDICATION AND IV SITE ESTABLISHMENT COMPLETED WITHOUT DIFFICULTY. LAB WORK AND URINE SPECIMEN HAS BEEN OBTAINED, EKG COMPLETED. PT HAS CALMED DOWN, INITIALLY VERY ANXIOUS ABOUT HER SX. PT REPORTS HER BP AT HOME WAS 189/100 PRIOR TO COMING TO ER. PT STATES SHE WAS AT WORK TONIGHT WHEN SHE BECAME DIZZY, HOT, AND FELT LIKE SHE WAS GOING TO PASS OUT WITH ALL OF HER BODY GETTING TINGLY AND NUMB, STATES SHE SAT DOWN FOR A BIT AND HER SX STILL HAVE NOT RESOLVED. PT IS A & O X4, NO NEURO DEFICITS ARE NOTED. WILL CONTINUE TO MONITOR.
[2022-01-26 20:37] LABS: Alanine Aminotransferase 23 U/L (14-59); Albumin Level 3.3 g/dL (3.4-5.0); Alkaline Phosphatase 126 U/L (46-116); Anion Gap 10 mmol/L (8-16); Aspartate Amino Transferase 16 U/L (15-37); Bilirubin,Total 0.2 mg/dL (0.00-1.00); Blood Urea Nitrogen 10 mg/dL (7-18); Calcium 8.6 mg/dL (8.5-10.1); Carbon Dioxide 27 mmol/L (21-32); Chloride 105 mmol/L (98-108); Estimated CRCL calculation 97 ml/min; Estimated Glomerular Filt Rate > 60; Glucose 120 mg/dL (70-99); Osmolality Calculated 294 mOsm/kg (285-295); Potassium 3.3 mmol/L (3.5-5.1); Sodium 142 mmol/L (136-145); Total Protein 6.9 g/dL (6.4-8.2); Troponin I 4.2 ng/L (0.00-60.4)
== END 2022-01-26 21:10 | disposition home or self-care (01) ==
PROVIDERS: Emergency Provider Emergency Medicine; PCP Physician Assistant
DX: F41.9 Anxiety disorder, unspecified (principal); R42 Dizziness and giddiness; I11.0 Hypertensive heart disease with heart failure; I50.9 Heart failure, unspecified; J44.9 Chronic obstructive pulmonary disease, unspecified; Z87.891 Personal history of nicotine dependence
CPT/HCPCS: 36415; 70450; 71046; 80053; 81003; 84484; 85025; 93005; 96374; 96375; 99284; A9270; J1885; J2405

== ENCOUNTER 2022-02-24 07:23 | Outpatient (CLI) | payer OTHER, SELFPAY ==
[2022-02-24 07:44] LABS: Basophils Absolute Auto 0.02 K/mm3 (0.00-0.10); Basophils Percent Auto 0.3 % (0.0-1.0); Eosinophils Absolute Auto 0.22 K/mm3 (0.02-0.50); Eosinophils Percent Auto 3.5 % (1.0-6.0); Hemoglobin 11.8 g/dL (12.0-15.0); Immature Granulocyte Absolute 0.01 K/mm3 (0.00-0.00); Immature Granulocyte Percent A 0.2 % (0.0-0.0); Lymphocytes Absolute Auto 1.86 K/mm3 (1.10-4.50); Lymphocytes Percent Auto 29.2 % (18.0-42.0); Mean Corpuscular HGB Conc 31.1 g/dL (32.0-36.0); Mean Corpuscular Volume 90.3 fL (78.0-102.0); Mean Platelet Volume 10.5 fl (9.2-11.8); Monocytes Absolute Auto 0.33 K/mm3 (0.10-0.90); Monocytes Percent Auto 5.2 % (2.0-11.0); Neutrophils Absolute Auto 3.9 K/mm3 (1.7-7.2); Neutrophils Percent Auto 61.6 % (50.0-70.0); Platelet Count Result 252 K/mm3 (150-420); Red Blood Count 4.21 M/mm3 (4.20-5.40); Red Cell Distribution Width 14.1 % (11.6-14.4); White Blood Count 6.4 K/mm3 (4.8-10.8)
[2022-02-24 07:54] LABS: Hemoglobin A1C 5.6 % (<5.7)
[2022-02-24 08:27] LABS: Alanine Aminotransferase 26 U/L (14-59); Albumin Level 3.2 g/dL (3.4-5.0); Alkaline Phosphatase 131 U/L (46-116); Anion Gap 11 mmol/L (8-16); Aspartate Amino Transferase 24 U/L (15-37); Bilirubin,Total 0.4 mg/dL (0.00-1.00); Blood Urea Nitrogen 10 mg/dL (7-18); Calcium 8.4 mg/dL (8.5-10.1); Carbon Dioxide 27 mmol/L (21-32); Chloride 105 mmol/L (98-108); Cholesterol 148 mg/dL (0-200); Estimated Glomerular Filt Rate > 60; Glucose 119 mg/dL (70-99); HDL Direct 39 mg/dL (40-60); LDL Cholesterol Calculated 77 mg/dL (<130); Osmolality Calculated 296 mOsm/kg (285-295); Potassium 4.3 mmol/L (3.5-5.1); Sodium 143 mmol/L (136-145); Thyroid Stimulating Hormone 1.95 uIU/mL (0.36-3.74); Total Protein 6.4 g/dL (6.4-8.2); Triglycerides 160 mg/dL (0-150)
[2022-03-01 12:45] LABS: Vitamin D 25 Hydroxy 36 ng/mL (30-100)
== END 2022-02-24 07:24 | disposition home or self-care (01) ==
LOC: CHSLAB 07:25
PROVIDERS: PCP Physician Assistant; Visit Provider Physician Assistant
DX: R42 Dizziness and giddiness (principal); E55.9 Vitamin D deficiency, unspecified; E78.5 Hyperlipidemia, unspecified; I10 Essential (primary) hypertension; R73.03 Prediabetes; Z13.31 Encounter for screening for depression; Z68.41 Body mass index [BMI] 40.0-44.9, adult
CPT/HCPCS: 36415; 80053; 80061; 82306; 83036; 84443; 85025

== ENCOUNTER 2022-02-28 07:13 | Outpatient (CLI) | payer OTHER, SELFPAY ==
--- NOTE | ~2022-02-28 | CT_ITS ---
EXAMINATION:CT diagnostic chest wo con DATE: 02/28/2022 07:37 INDICATION: Cavitary pneumonia. Gangrene and necrosis of lung. TECHNIQUE: Computed tomography (CT) of the chest was performed without intravenous contrast. Automate d exposure control and iterative reconstruction technique were employed. The dose-length product (DLP ) was 686.80 mGy-cm. COMPARISON: Chest CT 12/01/2021 FINDINGS: The lungs demonstrate mild atelectasis. Calcified left lung nodules and calcified left josefa r lymph nodes are consistent with old granulomatous disease. There is a 3 mm nodule in left lower lob e, likely benign. There is a trace right pleural effusion. The heart size is normal. No pericardial e ffusion. There is a small sliding hiatal hernia. There are changes of cholecystectomy. There is sever e thoracic spondylosis. IMPRESSION: 1. Mild atelectasis in the region of the previously seen pneumonia. 2. Trace right pleural effusion with interval improvement. Reviewed, dictated and finalized at location A. SETTER
== END 2022-02-28 07:14 | disposition home or self-care (01) ==
PROVIDERS: PCP Physician Assistant; Visit Provider Internal Medicine Pulmonary Disease
DX: J85.0 Gangrene and necrosis of lung (principal); J98.11 Atelectasis
CPT/HCPCS: 71250

== ENCOUNTER 2022-03-14 12:28 | Emergency (ER) | payer OTHER, SELFPAY ==
[2022-03-14 12:30] VITALS: BP 123/87; PULSE 79; RESP 18; TEMP 36.3; O2SAT 95
--- NOTE | 2022-03-14 12:31 | ED.WOUNDLAC ---
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 Palpation makes it worse she put a bandage over it. Nothing makes it better. Onset (ago): minute(s) (15) Extremity Location: Left: hand (middle finger) Place: work Patient tetanus UTD: No Context: accidental Associated symptoms: pain Treatments prior to arrival: bandage Related Data Home Medications Medication Instructions Recorded Confirmed lisinopril 20 mg tablet 20 mg PO DAILY 04/13/19 01/26/22 olanzapine 10 mg tablet 10 mg PO HS 04/13/19 01/26/22 omeprazole magnesium 20 mg 20 mg PO DAILY 04/13/19 01/26/22 tablet,delayed release (Prilosec OTC) atorvastatin 40 mg tablet 40 mg PO DAILY 06/01/21 01/26/22 fluoxetine 40 mg capsule 40 mg PO DAILY 06/01/21 01/26/22 multivitamin with minerals 1 tablet PO DAILY 12/01/21 01/26/22 Allergies Allergy/AdvReac Type Severity Reaction Status Date / Time No Known Allergies Allergy Unknown Verified 03/14/22 12:43 Review of Systems Review of Systems: All systems reviewed & are unremarkable except as noted in HPI and below PMFSH Past Medical History Medical History Anxiety Asthma Congestive heart failure COPD (chronic obstructive pulmonary disease) Depression Hx MRSA infection Hypertension Insect bite Surgical History Surgical History History of cholecystectomy History of hysterectomy History of incision and drainage Several areas to left forearm History of tubal ligation Family History Family History Father Heart disease Mother , Mother at age 60. Diabetes mellitus Sibling Rheumatoid arthritis Has RA in her hands, sees car rider. Social History Social History Social History: The patient is but lives with her boyfriend now and her daughter and granddaughter. The patient has 2 children. She denies any alcohol or any other illicit drugs. The patient works in the [employer] And she is a former smoker. She does not have a durable power insurance defense attorney for healthcare. Code status full code Smoking packs per day: 1.5 Smoking cigarettes per day: 30.0 Years smoked: 30 Smoking pack-years: 45.00 Smoking status: Former smoker Tobacco type: cigarettes Second hand tobacco smoke exposure: Yes Alcohol intake: never Substance use: never Substance use type: does not use Lack of Transportation: No Lack of Food: Sometimes True Current Housing: I Have Housing Concerned About Future Housing: No Difficulty Paying Gas/Electric Bills: No Difficulty Paying for Meds: No Currently Unemployed: No Education: High School Diploma/GED Difficulty w/ Childcare or Family Care: No Spiritual care concerns: No Exam Const: General: healthy appearing, no acute distress and alert Nutritional Appearance: well nourished and obese morbidly obese Orientation/consciousness: patient oriented x3 Limitations: no limitations HENMT: Head: normal to inspection Ears: external ears normal Eyes: Conjunctivae: conjunctivae normal Pupils: Equal, round and reactive pupils present EOM: EOMs intact bilaterally Neck: Neck: normal visual inspection Resp: Effort & Inspection: normal respiratory effort Auscultation: clear to auscultation bilaterally Cardio: Rate: regular rate Rhythm: regular rhythm GI: GI Palp: Yes Soft to palpation and No Tenderness to palpation present (GI) Auscultation: normal bowel sounds Back/Spine/Pelvis: Cervical Spine: cervical ROM normal Thor
[2022-03-14] MEDS: TETANUS,DIPHTHERIA,AC PERTUSSIS ADULT 0.5 ML (ADACEL) IM (13:10)
[2022-03-14 13:24] VITALS: BP 128/68; PULSE 66; RESP 16; TEMP 36.2; O2SAT 97
== END 2022-03-14 13:30 | disposition home or self-care (01) ==
LOC: CHSED 13:24
PROVIDERS: Emergency Provider Emergency Medicine; PCP Physician Assistant
DX: S61.213A Laceration without foreign body of left middle finger without damage to nail, initial encounter (principal); F41.9 Anxiety disorder, unspecified; I11.0 Hypertensive heart disease with heart failure; I50.9 Heart failure, unspecified; Z87.891 Personal history of nicotine dependence; Z23 Encounter for immunization; W26.8XXA Contact with other sharp object(s), not elsewhere classified, initial encounter; Y99.0 Civilian activity done for income or pay
CPT/HCPCS: 12001; 90471; 90715; 99282

== ENCOUNTER 2022-03-22 08:50 | Outpatient (CLI) | payer OTHER, SELFPAY ==
--- NOTE | 2022-03-22 16:39 | WPDSIXMINUTE ---
Six Minute Walk Procedure Procedure Performed Pulmonary Stress Test (6 min walk) Six Minute Walk Six Minute Walk: This is a 6 minute walk test. The test was performed and interpreted in accordance with the 2014 ERS/ATS task force guidelines. Findings: The patient's resting room air oxygen saturation measured by pulse oximetry was 96% and heart rate was 78 bpm. Patient ambulated for 366 meters and oxygen saturation remained 91 to 96%. Heart rate at the end of the study was 105 bpm. The patient did not qualify for supplemental oxygen at rest or with ambulation. There are no prior studies for comparison.
--- NOTE | 2022-03-22 16:40 | WPDPFTINT ---
PFT Procedure Performed PFT Procedure Performed Spirometry with Pre/Post Bronchodilator Plethysmography (Lung Vol) Diffusing Cap (DLCO) Flow Vol Loop PFT Interpretation This is a pulmonary function test with pre and post-bronchodilator spirometry, plethysmography and diffusing capacity. The test was performed and results interpreted in accordance with the 2019 and 2005 ATS/ERS Task Force guidelines respectively using the Global Lung Function Initiative-2012 reference equations. Patient demonstrated good effort and cooperation. Reproducibility criteria were met. The quality of the pre bronchodilator spirometry maneuver was Grade A and post bronchodilator spirometry maneuver was Grade A. Findings: Spirometry: There is decreased maximal expiratory airflow at all lung volumes with concave expiratory flow tracing. The contour the inspiratory flow tracing is normal. The pre bronchodilator FVC is 2.83 L, 79% predicted. The pre bronchodilator FEV1 is 1.77 L, 63% predicted. The pre bronchodilator FEV1: FVC ratio 63%. The post bronchodilator FVC is 2.79 L, representing 1% decrease. The post bronchodilator FEV1 is 1.96 L, representing an 11% increase. The post bronchodilator FEV1: FVC ratio is 70%. plethysmography: The total lung capacity is 6.85 L, 127% predicted. The functional residual capacity is 5.13 L, 169% predicted. The residual volume is 4.02 L, 202% predicted. Diffusing capacity: The diffusing capacity unadjusted for hemoglobin and carboxyhemoglobin is 18.4, 80% predicted. The diffusing capacity adjusted for alveolar volume is 4.13, 93% predicted. Impression: There is a moderate obstructive abnormality without significant improvement after inhaling a single dose of albuterol. The increase in residual volume is consistent with air trapping from an obstructive abnormality. Hyperinflation is present as demonstrated by the increase in functional residual capacity and total lung capacity and is consistent with an obstructive abnormality. The diffusing capacity is normal. There are no prior studies for comparison
== END 2022-03-22 08:51 | disposition home or self-care (01) ==
LOC: ANHPFT 08:53
PROVIDERS: PCP Physician Assistant; Visit Provider Internal Medicine Pulmonary Disease
DX: J44.9 Chronic obstructive pulmonary disease, unspecified (principal); Z87.891 Personal history of nicotine dependence; R94.2 Abnormal results of pulmonary function studies
CPT/HCPCS: 94060; 94618; 94726; 94729

== ENCOUNTER 2022-03-28 13:47 | Outpatient (CLI) | payer OTHER, SELFPAY ==
--- NOTE | ~2022-03-28 | XR_ITS ---
EXAM: XR knee RT 3V, XR knee LT 3V DATE: 03/28/2022 14:16 HISTORY: ACUTE BILATERAL KNEE PAIN . COMPARISON: None available. FINDINGS: Normal mineralization. No fracture or dislocation. No lytic or blastic lesion. Bilateral m edial joint space narrowing. Mild patellofemoral osteophytosis. No erosion or periosteal change. Soft tissues within normal limits. IMPRESSION: No acute osseous finding in the right or left knee. Reviewed, dictated and finalized at location K. D EXAMINER IMPRESSION: No acute osseous finding in the right or left knee.
--- NOTE | ~2022-03-28 | XR_ITS ---
XR lumbar spine 2-3V 03/28/2022 14:17 Indication: Low back pain Procedure: 3 views lumbar spine Comparison: No prior studies for comparison. Findings: There is mild dextrocurvature of the lumbar spine. Vertebral body heights are maintained. T here is mild multilevel disc narrowing. No evidence for spondylolisthesis. There is atherosclerosis o f the aorta. Impression: 1: Mild lumbar spondylosis. Reviewed, dictated and finalized at location L. MAKER Impression: 1: Mild lumbar spondylosis.
== END 2022-03-28 13:48 | disposition home or self-care (01) ==
LOC: CHSIMG 13:50
PROVIDERS: PCP Physician Assistant; Visit Provider Nurse Practitioner
DX: M25.561 Pain in right knee (principal); M54.42 Lumbago with sciatica, left side; M43.06 Spondylolysis, lumbar region
CPT/HCPCS: 72100; 73562

== ENCOUNTER 2022-05-21 21:29 | Emergency (ER) | payer OTHER, SELFPAY ==
--- NOTE | ~2022-05-21 | CT_ITS ---
CT scan of the Neck Technique: 2.5 mm axial scans were obtained through the neck after intravenous administration of 75 c c Omnipaque 350. Coronal and sagittal reconstructions of the neck were obtained. Dose reduction techn ique was used on this scan by utilizing automated exposure control and iterative reconstruction techn ique. The dose-length product (DLP) was 650.66 mGy-cm. Clinical History: Sore throat, dysphagia Findings: Enlarged left level 2 lymph node is present, measuring 2.7 x 1.7 cm in size (axial image 48). Several small, nonenlarged jugulo- digastric and posterior cervical lymph nodes are noted bilaterally. Parap haryngeal spaces appear normal bilaterally. The parotid and submandibular glands appear normal. The pharyngeal mucosal spaces appear normal. No soft tissue masses are seen in the neck. The thyroid gland appears normal. Images of the lung apices reveal no abnormalities. Impression: Enlarged left level 2 lymph node, as above, nonspecific. Diagnostic considerations include inflammato ry/reactive lymph node versus possibility of lymphoma or other metastatic disease. Reviewed, dictated and finalized at [facility]. Impression: Enlarged left level 2 lymph node, as above, nonspecific. Diagnostic considerati ons include inflammatory/reactive lymph node versus possibility of lymphoma or other metastatic disease.
[2022-05-21 21:34] VITALS: BP 164/89; PULSE 74; RESP 20; TEMP 36.9; O2SAT 96
--- NOTE | 2022-05-21 21:44 | ED.GENADULT ---
HPI - General Adult General Chief complaint: Unspecified Stated complaint: Sore Throat History of Present Illness HPI narrative: Palma is a 57F with a PMH of obesity, COPD, HTN, GERD, and severe pneumonia that presented to the ED with a sore throat. She was treated for strep a few weeks ago and has had a sore throat since. However, today her throate started to get more sore and she was having trouble swallowing food. In addition her left anterior cervical lymph nodes were very painful and she had subjective fevers. NO CP, dyspnea, nausea or vomiting. Related Data Home Medications Medication Instructions Recorded Confirmed lisinopril 20 mg tablet 20 mg PO DAILY 04/13/19 01/26/22 olanzapine 10 mg tablet 10 mg PO HS 04/13/19 01/26/22 omeprazole magnesium 20 mg 20 mg PO DAILY 04/13/19 01/26/22 tablet,delayed release (Prilosec OTC) atorvastatin 40 mg tablet 40 mg PO DAILY 06/01/21 01/26/22 fluoxetine 40 mg capsule 40 mg PO DAILY 06/01/21 01/26/22 multivitamin with minerals 1 tablet PO DAILY 12/01/21 01/26/22 Allergies Allergy/AdvReac Type Severity Reaction Status Date / Time No Known Allergies Allergy Unknown Verified 05/21/22 21:38 Review of Systems Review of Systems: All systems reviewed & are unremarkable except as noted in HPI and below PMFSH Past Medical History Medical History Anxiety Asthma Congestive heart failure COPD (chronic obstructive pulmonary disease) Depression Hx MRSA infection Hypertension Insect bite Surgical History Surgical History History of cholecystectomy History of hysterectomy History of incision and drainage Several areas to left forearm History of tubal ligation Family History Family History Father Heart disease Mother , Mother at age 60. Diabetes mellitus Sibling Rheumatoid arthritis Has RA in her hands, sees fabrication and layout craftsman. Social History Social History Social History: The patient is but lives with her boyfriend now and her daughter and granddaughter. The patient has 2 children. She denies any alcohol or any other illicit drugs. The patient works in the [employer] And she is a former smoker. She does not have a durable power firer locomotive crane for healthcare. Code status full code Smoking packs per day: 1.5 Smoking cigarettes per day: 30.0 Years smoked: 30 Smoking pack-years: 45.00 Smoking status: Former smoker Tobacco type: cigarettes Second hand tobacco smoke exposure: Yes Alcohol intake: never Substance use: never Substance use type: does not use Lack of Transportation: No Lack of Food: Sometimes True Current Housing: I Have Housing Concerned About Future Housing: No Difficulty Paying Gas/Electric Bills: No Difficulty Paying for Meds: No Currently Unemployed: No Education: High School Diploma/GED Difficulty w/ Childcare or Family Care: No Spiritual care concerns: No Exam Const: General: cooperative, healthy appearing and comfortable Nutritional Appearance: average body habitus and well nourished HENMT: Head: normal to inspection, normocephalic and atraumatic Other: Erythematous posterior oropharynx and enlarged tonsils Eyes: General: appearance normal, both eyes and all related structures Neck: Neck: normal visual inspection Other: significant left anterior cervical lymphadenopathy Chest: Chest palpation & inspection: normal inspection of the chest Resp: Effort & Inspection: normal respiratory effort and able to speak in complete sentences Auscultation: clear to auscultation bilaterally GI: Inspection: normal to inspection Skin: General skin exam: normal color and no rashes or lesions noted Neuro: General: oriented to person, oriented to place and oriented to ti
[2022-05-21 22:31] LABS: Basophils Absolute Auto 0.03 K/mm3 (0.00-0.10); Basophils Percent Auto 0.4 % (0.0-1.0); Eosinophils Absolute Auto 0.26 K/mm3 (0.02-0.50); Eosinophils Percent Auto 3.3 % (1.0-6.0); Hematocrit 34.4 % (35.0-49.0); Immature Granulocyte Absolute 0.02 K/mm3 (0.00-0.00); Immature Granulocyte Percent A 0.3 % (0.0-0.0); Lymphocytes Absolute Auto 2.74 K/mm3 (1.10-4.50); Lymphocytes Percent Auto 34.6 % (18.0-42.0); Mean Corpuscular Volume 87.5 fL (78.0-102.0); Mean Platelet Volume 9.9 fl (9.2-11.8); Monocytes Absolute Auto 0.48 K/mm3 (0.10-0.90); Monocytes Percent Auto 6.1 % (2.0-11.0); Neutrophils Absolute Auto 4.4 K/mm3 (1.7-7.2); Neutrophils Percent Auto 55.3 % (50.0-70.0); Platelet Count Result 283 K/mm3 (150-420); Red Blood Count 3.93 M/mm3 (4.20-5.40); Red Cell Distribution Width 13.8 % (11.6-14.4); White Blood Count 7.9 K/mm3 (4.8-10.8)
[2022-05-21 22:46] LABS: Alanine Aminotransferase 21 U/L (14-59); Albumin Level 2.9 g/dL (3.4-5.0); Alkaline Phosphatase 120 U/L (46-116); Anion Gap 5 mmol/L (8-16); Aspartate Amino Transferase 16 U/L (15-37); Bilirubin,Total 0.3 mg/dL (0.00-1.00); Blood Urea Nitrogen 7 mg/dL (7-18); CRP 1.8 mg/dL (0.0-0.9); Calcium 8.8 mg/dL (8.5-10.1); Carbon Dioxide 32 mmol/L (21-32); Chloride 104 mmol/L (98-108); Estimated CRCL calculation 127 ml/min; Estimated Glomerular Filt Rate > 60; Glucose 106 mg/dL (70-99); Osmolality Calculated 290 mOsm/kg (285-295); Potassium 3.3 mmol/L (3.5-5.1); Sodium 141 mmol/L (136-145); Total Protein 6.7 g/dL (6.4-8.2)
[2022-05-21 22:49] LABS: Lactic Acid Reflex 0.6 mmol/L (0.4-2.0)
[2022-05-22] MEDS: AMOXICILLIN/CLAVULANATE K 875-125 MG TAB 1 TABLET PO (00:39)
[2022-05-22 00:50] VITALS: BP 154/90; PULSE 73; RESP 16; O2SAT 98
== END 2022-05-22 00:51 | disposition home or self-care (01) ==
PROVIDERS: Emergency Provider Family Medicine; PCP Physician Assistant
DX: R59.1 Generalized enlarged lymph nodes (principal); J02.9 Acute pharyngitis, unspecified; J44.9 Chronic obstructive pulmonary disease, unspecified; I11.0 Hypertensive heart disease with heart failure; I50.9 Heart failure, unspecified; F41.9 Anxiety disorder, unspecified; F32.A Depression, unspecified; Z87.891 Personal history of nicotine dependence
CPT/HCPCS: 36415; 70491; 80053; 83605; 85025; 86140; 99284; A9270; Q9967

== ENCOUNTER 2022-05-30 19:23 | Emergency (ER) | payer OTHER, SELFPAY ==
--- NOTE | ~2022-05-30 | XR_ITS ---
EXAM: XR foot RT min 3V DATE: 05/30/2022 20:16 HISTORY: RIGHT LATERODISTAL FOOT PAIN NEAR 5TH DIGIT S/P FALL. . COMPARISON: None available. FINDINGS: Normal mineralization. No fracture or dislocation. No lytic or blastic lesion. Joint space s are maintained. No erosion or periosteal change. Soft tissues within normal limits. IMPRESSION: No acute osseous finding in the right foot. Reviewed, dictated and finalized at location K.
--- NOTE | ~2022-05-30 | XR_ITS ---
EXAM: XR ankle RT min 3V DATE: 05/30/2022 19:54 HISTORY: RIGHT ANTERIOR ANKLE PAIN S/P FALL DOWN 2 STEPS. . COMPARISON: None available. FINDINGS: Normal mineralization. No acute fracture or dislocation. Old distal right fibular fracture . No lytic or blastic lesion. Joint spaces are maintained. No erosion or periosteal change. Soft tiss ues within normal limits. IMPRESSION: No acute osseous finding in the right ankle. Reviewed, dictated and finalized at location K.
[2022-05-30 19:30] VITALS: BP 128/80; PULSE 87; RESP 18; TEMP 36.6; O2SAT 96
--- NOTE | 2022-05-30 19:42 | ED.LOWEXIN ---
HPI - Extremity Injury (Lower) General Chief Complaint: Extremity Injury, Lower Stated Complaint: right foot injury Time Seen by Provider: 05/30/22 19:36 Source: patient and RN notes reviewed Limitations: no limitations History of Present Illness HPI Narrative: patient states that she slipped on a couple of steps at home rolling her right ankle and foot. Now it is tender standing on it walking on it feels worse elevation is better complaint: ankle injury Onset (ago): hour(s) (1) Injury: Right: ankle Type of Injury: inversion Place: home Severity: moderate Relieving factors: rest Exacerbating factors: weight bearing, movement and palpation Context: walking Associated symptoms: snap/pop sensation Other symptoms: none Related Data Home Medications Medication Instructions Recorded Confirmed lisinopril 20 mg tablet 20 mg PO DAILY 04/13/19 05/30/22 omeprazole magnesium 20 mg 20 mg PO DAILY 04/13/19 05/30/22 tablet,delayed release (Prilosec OTC) atorvastatin 40 mg tablet 40 mg PO DAILY 06/01/21 05/30/22 fluoxetine 40 mg capsule 40 mg PO DAILY 06/01/21 05/30/22 multivitamin with minerals 1 tablet PO DAILY 12/01/21 05/30/22 Allergies Allergy/AdvReac Type Severity Reaction Status Date / Time No Known Allergies Allergy Unknown Verified 05/21/22 21:38 [facility] Past Medical History Medical History Anxiety Asthma Congestive heart failure COPD (chronic obstructive pulmonary disease) Depression Hx MRSA infection Hypertension Insect bite Surgical History Surgical History History of cholecystectomy History of hysterectomy History of incision and drainage Several areas to left forearm History of tubal ligation Family History Family History Father Heart disease Mother , Mother at age 60. Diabetes mellitus Sibling Rheumatoid arthritis Has RA in her hands, sees doctor of medicine. Social History Social History Social History: The patient is but lives with her boyfriend now and her daughter and granddaughter. The patient has 2 children. She denies any alcohol or any other illicit drugs. The patient works in the [employer] And she is a former smoker. She does not have a durable power compliance attorney for healthcare. Code status full code Smoking packs per day: 1.5 Smoking cigarettes per day: 30.0 Years smoked: 30 Smoking pack-years: 45.00 Smoking status: Former smoker Tobacco type: cigarettes Second hand tobacco smoke exposure: Yes Alcohol intake: never Substance use: never Substance use type: does not use Lack of Transportation: No Lack of Food: Sometimes True Current Housing: I Have Housing Concerned About Future Housing: No Difficulty Paying Gas/Electric Bills: No Difficulty Paying for Meds: No Currently Unemployed: No Education: High School Diploma/GED Difficulty w/ Childcare or Family Care: No Spiritual care concerns: No Exam Const: General: healthy appearing, no acute distress and alert Nutritional Appearance: well nourished and obese Orientation/consciousness: patient oriented x3 Limitations: no limitations HENMT: Head: normal to inspection Ears: external ears normal Face/Nose/Sinus: Normal external nose present Face and sinus: normal facial exam Mouth: Yes moist mucous membranes Eyes: Conjunctivae: conjunctivae normal Pupils: Equal, round and reactive pupils present EOM: EOMs intact bilaterally Neck: Neck: normal visual inspection Resp: Effort & Inspection: normal respiratory effort Auscultation: clear to auscultation bilaterally Cardio: Rate: regular rate Rhythm: regular rhythm GI: GI Palp: Yes Soft to palpation and No Tenderness to palpation present (GI) Auscultation: normal bowel sounds Back/Spine/Pel
[2022-05-30] MEDS: KETOROLAC 30 MG/ML VIAL (*BKC) IM (20:35)
[2022-05-30 20:47] VITALS: BP 115/71; PULSE 76; RESP 18; TEMP 36.8; O2SAT 98
== END 2022-05-30 20:50 | disposition home or self-care (01) ==
PROVIDERS: Emergency Provider Emergency Medicine
DX: S93.401A Sprain of unspecified ligament of right ankle, initial encounter (principal); F41.9 Anxiety disorder, unspecified; J44.9 Chronic obstructive pulmonary disease, unspecified; I11.0 Hypertensive heart disease with heart failure; I50.9 Heart failure, unspecified; Z87.891 Personal history of nicotine dependence; W10.8XXA Fall (on) (from) other stairs and steps, initial encounter; Y92.009 Unspecified place in unspecified non-institutional (private) residence as the place of occurrence of the external cause
CPT/HCPCS: 73610; 73630; 96372; 99283; J1885; L4350

== ENCOUNTER 2022-07-09 19:57 | Emergency (ER) | payer OTHER, SELFPAY ==
[2022-07-09] VITALS (29 sets, daily range): BP systolic 119–151; BP diastolic 75–132; PULSE 81–93; RESP 15–33; TEMP 36.9; O2SAT 93–100
--- NOTE | 2022-07-09 22:07 | ED.GENADULT ---
HPI - General Adult General Chief complaint: Unspecified Stated complaint: BPD @ home 168/102 Source: patient Mode of arrival: ambulatory Limitations: no limitations History of Present Illness HPI narrative: patient complained of a blood pressure being 168/102 at home she also complains of dizziness lightheadedness tonight and yesterday she had to leave work because of it. She said she had this over 6 months ago out to her 3 weeks and then saw her primary care provider who sent her to the fundraiser for the same complaint he did echocardiogram which was negative he told her record her blood pressures which she has not done and return if she she had more dizziness which she has not done. Nothing seems to make the dizziness worse it is better if she sits down or rest. She denies any problems eating or drinking voiding or stooling fever cough runny nose sore throat rash or itching bleeding or bruising swelling lumps or bumps problems walking talking seeing or hearing Or any other complaints. Past medical history hypertension asthma CHF COPD. Related Data Home Medications Medication Instructions Recorded Confirmed lisinopril 20 mg tablet 20 mg PO DAILY 04/13/19 05/30/22 omeprazole magnesium 20 mg 20 mg PO DAILY 04/13/19 05/30/22 tablet,delayed release (Prilosec OTC) atorvastatin 40 mg tablet 40 mg PO DAILY 06/01/21 05/30/22 fluoxetine 40 mg capsule 40 mg PO DAILY 06/01/21 05/30/22 multivitamin with minerals 1 tablet PO DAILY 12/01/21 05/30/22 Allergies Allergy/AdvReac Type Severity Reaction Status Date / Time No Known Allergies Allergy Unknown Verified 05/21/22 21:38 Review of Systems Review of Systems: All systems reviewed & are unremarkable except as noted in HPI and below PMFSH Past Medical History Medical History Anxiety Asthma Congestive heart failure COPD (chronic obstructive pulmonary disease) Depression Hx MRSA infection Hypertension Insect bite Surgical History Surgical History History of cholecystectomy History of hysterectomy History of incision and drainage Several areas to left forearm History of tubal ligation Family History Family History Father Heart disease Mother , Mother at age 60. Diabetes mellitus Sibling Rheumatoid arthritis Has RA in her hands, sees railroad shop inspector. Social History Social History Social History: The patient is but lives with her boyfriend now and her daughter and granddaughter. The patient has 2 children. She denies any alcohol or any other illicit drugs. The patient works in the [employer]. And she is a former smoker. She does not have a durable power city attorney for healthcare. Code status full code Smoking packs per day: 1.5 Smoking cigarettes per day: 30.0 Years smoked: 30 Smoking pack-years: 45.00 Smoking status: Former smoker Tobacco type: cigarettes Second hand tobacco smoke exposure: Yes Alcohol intake: never Substance use: never Substance use type: does not use Lack of Transportation: No Lack of Food: Sometimes True Current Housing: I Have Housing Concerned About Future Housing: No Difficulty Paying Gas/Electric Bills: No Difficulty Paying for Meds: No Currently Unemployed: No Education: High School Diploma/GED Difficulty w/ Childcare or Family Care: No Spiritual care concerns: No Exam Narrative: White Morbidly obese female no apparent distress. ?Head:? Normocephalic atraumatic.? Eyes conjunctiva pink sclera nonicteric.? Ears TMs are normal.? Oropharynx is clear with moist mucous membranes no exudates.? Neck is supple no lymphadenopathy nontender full range of motion.? Back is nontender.? Chest nontender.? Lungs are clear without wheezes ral
--- NOTE | 2022-07-09 22:22 | ECG_ITS ---
Measurements Intervals [place] Rate: 87 P: 25 RI: 149 QRS: 19 QRSD: 93 T: 43 QT: 376 QTc: 454 Interpretive Statements SINUS RHYTHM LOW QRS VOLTAGE IN PRECORDIAL LEADS [QRS DEFLECTION < 1.0 mV IN CHEST LEADS] NONSPECIFIC ST AND T-WAVE ABNORMALITY ABNORMAL ECG COMPARED TO ECG 01/26/2022 20:14:12 NO SIGNIFICANT CHANGES Electronically Signed On 07-10-2022 9:31:19 CDT by Rafa Cruz M.D.
[2022-07-09 23:01] LABS: Hematocrit 36.5 % (35.0-49.0); Hemoglobin 11.9 g/dL (12.0-15.0); Mean Corpuscular HGB Conc 32.6 g/dL (32.0-36.0); Mean Corpuscular Hemoglobin 28.6 pg (27.0-31.0); Mean Corpuscular Volume 87.7 fL (78.0-102.0); Mean Platelet Volume 9.5 fl (9.2-11.8); Platelet Count Result 276 K/mm3 (150-420); Red Blood Count 4.16 M/mm3 (4.20-5.40); Red Cell Distribution Width 13.7 % (11.6-14.4); White Blood Count 6.5 K/mm3 (4.8-10.8)
[2022-07-09 23:19] LABS: Alanine Aminotransferase 32 U/L (14-59); Albumin Level 3.1 g/dL (3.4-5.0); Alkaline Phosphatase 140 U/L (46-116); Anion Gap 7 mmol/L (8-16); Aspartate Amino Transferase 20 U/L (15-37); Bilirubin,Total 0.2 mg/dL (0.00-1.00); Blood Urea Nitrogen 8 mg/dL (7-18); Calcium 8.5 mg/dL (8.5-10.1); Carbon Dioxide 28 mmol/L (21-32); Chloride 104 mmol/L (98-108); Estimated Glomerular Filt Rate > 60; Glucose 123 mg/dL (70-99); Osmolality Calculated 287 mOsm/kg (285-295); Potassium 3.5 mmol/L (3.5-5.1); Sodium 139 mmol/L (136-145); Total Protein 6.9 g/dL (6.4-8.2)
[2022-07-09 23:24] LABS: Troponin I < 4.0 ng/L (0.00-60.4)
[2022-07-10] VITALS: PULSE 85; RESP 19; O2SAT 91
== END 2022-07-10 00:19 | disposition home or self-care (01) ==
PROVIDERS: Emergency Provider Emergency Medicine; PCP Physician Assistant
DX: R42 Dizziness and giddiness (principal); J44.9 Chronic obstructive pulmonary disease, unspecified; F41.9 Anxiety disorder, unspecified; F32.A Depression, unspecified; I11.0 Hypertensive heart disease with heart failure; I50.9 Heart failure, unspecified; Z87.891 Personal history of nicotine dependence
CPT/HCPCS: 36415; 80053; 84484; 85027; 93005; 99284

== ENCOUNTER 2022-09-08 21:15 | Emergency (ER) | payer OTHER, SELFPAY ==
--- NOTE | ~2022-09-08 | XR_ITS ---
EXAMINATION: XR lumbar spine 2-3V DATE: 09/08/2022 21:45 INDICATION: Low back pain TECHNIQUE: Anteroposterior and lateral views of the lumbar spine, and cone-down lateral view of the l umbosacral junction were obtained. COMPARISON: 03/28/2022 FINDINGS: No fracture, dislocation, or subluxation. The vertebral body heights are maintained. There is unchanged mild loss of intervertebral disc space height throughout the lumbar spine. Small degener ative osteophytes project from the anterior endplates of multiple vertebral bodies. There is multilev el moderate facet joint osteoarthritis. Calcified atherosclerosis is noted. There are phleboliths of the pelvis. IMPRESSION: 1. Mild lumbar spondylosis without acute findings or significant interval change. Reviewed, dictated and finalized at location F. IMPRESSION: 1. Mild lumbar spondylosis without acute findings or significant interval [place]
[2022-09-08] MEDS: CEPHALEXIN 500 MG CAPSULE PO (21:20)
[2022-09-08] MEDS: predniSONE 20 MG TABLET 40 MG PO (21:20)
[2022-09-08] MEDS: KETOROLAC (*BKC) 60 MG/2 ML VIAL IM (21:20)
[2022-09-08 21:21] VITALS: BP 138/85; PULSE 104; RESP 20; TEMP 37.2; O2SAT 96
--- NOTE | 2022-09-08 21:24 | ED.BACK ---
HPI - Back Pain/Injury General Chief Complaint: Back Pain/Injury Stated Complaint: R Flank Pain Time Seen by Provider: 09/08/22 21:22 Source: patient Mode of arrival: ambulatory Limitations: no limitations History of Present Illness HPI Narrative: patient is a 57-year-old female with right lower back pain with shooting pains down the right lower extremity. There is associated numbness and tingling around the groin and lower extremity on the right. No loss of urine or stool. No retention of urine or stool. The numbness and tingling is only on the right side and not in the saddle type variation. MD elicited complaint: back pain Pertinent past history: prior back pain Onset (ago): hour(s) Timing: constant Severity: moderate Pain scale (0-10): 8 Similar Symptoms Previously: Yes Quality: sharp and tingling Location: lumbar spine and right lower back Radiation: right upper leg and right leg below the knee Exacerbating factors: movement Relieving factors: immobilization and sitting upright Context: turning/twisting and bending Associated symptoms: numbness Related Data Home Medications Medication Instructions Recorded Confirmed lisinopril 20 mg tablet 20 mg PO DAILY 04/13/19 05/30/22 omeprazole magnesium 20 mg 20 mg PO DAILY 04/13/19 05/30/22 tablet,delayed release (Prilosec OTC) atorvastatin 40 mg tablet 40 mg PO DAILY 06/01/21 05/30/22 fluoxetine 40 mg capsule 40 mg PO DAILY 06/01/21 05/30/22 multivitamin with minerals 1 tablet PO DAILY 12/01/21 05/30/22 Allergies Allergy/AdvReac Type Severity Reaction Status Date / Time No Known Allergies Allergy Unknown Verified 05/21/22 21:38 Review of Systems Review of Systems: All systems reviewed & are unremarkable except as noted in HPI and below Constitutional: Constitutional: Reports no additional constitutional complaints Eyes: Eyes: Reports no additional eye complaints ENT: Reports system reviewed and no additional complaints, except as documented Cardiovascular: Cardiovascular: Reports no additional cardiovascular complaints Respiratory: Respiratory: Reports no additional respiratory complaints Gastrointestinal: Gastrointestinal: Reports no additional gastrointestinal complaints Genitourinary: Genitourinary: Reports no additional female genitourinary complaints Musculoskeletal: Musculoskeletal: Reports no additional musculoskeletal complaints Integumentary/Breasts: Skin/Breast: Reports system reviewed and no additional complaints, except as docu Neurologic: Reports system reviewed and no additional complaints, except as documented Psychiatric: Psychiatric: Reports no additional psychiatric complaints Endocrine: Endocrine: Reports no additional endocrine complaints Hematologic/Lymphatic: Hematologic/Lymphatic: Reports no additional hematologic/lymphatic complaints Allergic/Immunologic: Allergic/Immunologic: Reports no additional allergic/immunologic complaints PMFSH Past Medical History Medical History Anxiety Asthma Congestive heart failure COPD (chronic obstructive pulmonary disease) Depression Hx MRSA infection Hypertension Insect bite Surgical History Surgical History History of cholecystectomy History of hysterectomy History of incision and drainage Several areas to left forearm History of tubal ligation Family History Family History Father Heart disease Mother , Mother at age 60. Diabetes mellitus Sibling Rheumatoid arthritis Has RA in her hands, sees exchange underwriting consultant. Social History Social History Social History: The patient is but lives with her boyfriend now and her daughter and granddaughter. The patient has 2 children. She denies any alcohol or any other illicit drugs. The p
[2022-09-08 21:27] LABS: Appearance Urine Clear (Clear); Bilirubin Urine Negative (Negative); Blood Urine Negative (Negative); Color Urine Light Yellow (Yellow); Glucose Urine UA Negative (Negative); Ketones Urine Negative (Negative); Leukocyte Esterase Ur 1+ LEU/UL (Negative); Nitrate Urine Negative (Negative); Protein Urine Negative (Negative); Specific Grav Ur <= 1.005 (1.010-1.020); Urobilinogen Urine 0.2 mg/dL (0.2-1.0)
[2022-09-08 21:31] LABS: Add Urine Microscopic? YES; Bacteria Urine 1+ /hpf; RBC Urine 0-2 /hpf (0-2); Squamous Epithelial Cell Urine Few /hpf (Few)
[2022-09-08] MEDS: HYDROcodone/acetaminophen (*CRX) 5-325 MG TABLET 1 TAB PO (21:45)
--- NOTE | 2022-09-08 21:55 | PC.NURSE ---
patient states I am on no meds. Tank Charger pulled list from records, patient then states I am on some I don't know them, unsure when I took them last
[2022-09-08 22:05] VITALS: BP 138/90; PULSE 100; RESP 20; TEMP 37.2; O2SAT 96
--- NOTE | 2022-09-11 14:41 | PC.NURSE ---
final urine culture results: no growth
== END 2022-09-08 22:14 | disposition home or self-care (01) ==
LOC: CHSED 22:07
PROVIDERS: Emergency Provider Emergency Medicine; PCP Physician Assistant
DX: M54.16 Radiculopathy, lumbar region (principal); M54.30 Sciatica, unspecified side; N39.0 Urinary tract infection, site not specified; I11.0 Hypertensive heart disease with heart failure; I50.9 Heart failure, unspecified; J44.9 Chronic obstructive pulmonary disease, unspecified; Z87.891 Personal history of nicotine dependence
CPT/HCPCS: 72100; 81001; 87086; 96372; 99283; A9270; J1885; J7512

== ENCOUNTER 2022-10-01 19:11 | Emergency (ER) | payer OTHER, SELFPAY ==
[2022-10-01 19:19] VITALS: BP 132/94; PULSE 82; RESP 18; TEMP 36.6; O2SAT 97
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
[2022-10-01] MEDS: TRIAMCINOLONE ACET 0.1% CREAM 15 GM TUBE 1 APPLIC TOPICAL (19:50)
[2022-10-01 20:01] VITALS: BP 133/87; PULSE 90; RESP 18; O2SAT 99
== END 2022-10-01 20:09 | disposition home or self-care (01) ==
PROVIDERS: Emergency Provider Emergency Medicine; PCP Physician Assistant
DX: T63.451A Toxic effect of venom of hornets, accidental (unintentional), initial encounter (principal); I11.0 Hypertensive heart disease with heart failure; I50.9 Heart failure, unspecified; J44.9 Chronic obstructive pulmonary disease, unspecified; Z87.891 Personal history of nicotine dependence
CPT/HCPCS: 99283; A9270

== ENCOUNTER 2022-10-31 13:42 | Emergency (ER) | payer OTHER, SELFPAY ==
[2022-10-31] VITALS (21 sets, daily range): BP systolic 90–117; BP diastolic 60–73; PULSE 69–85; RESP 13–24; TEMP 36.8; O2SAT 91–97
--- NOTE | ~2022-10-31 | XR_ITS ---
EXAMINATION: XR chest 1V portable DATE: 10/31/2022 14:37 INDICATION: Shortness of breath and hypotension TECHNIQUE: frontal view of the chest was obtained. COMPARISON: Chest CT dated 02/28/2022 FINDINGS: Mild streaky bibasilar atelectasis. No other airspace opacities, pulmonary edema, pleural effusion or pneumothorax. The cardiomediastinal silhouette is normal. IMPRESSION: 1. Mild streaky bibasilar atelectasis. No other acute cardiopulmonary disease. Reviewed, dictated and finalized at location A.
--- NOTE | ~2022-10-31 | CT_ITS ---
EXAMINATION: CT brain wo con DATE: 10/31/2022 14:35 INDICATION: Dizziness. TECHNIQUE: Computed tomography (CT) of the head was performed without intravenous contrast. The mA wa s adjusted according to patient size. Iterative reconstruction technique was employed. The dose-lengt h product was 681.00 mGy-cm. COMPARISON: Head CT 01/26/2022 FINDINGS: There is no intracranial hemorrhage, acute infarction, or abnormal intracranial mass lesion . The ventricles are normal in size. The orbits are normal. There is mild mucosal thickening in the p aranasal sinuses. The mastoid air cells are normal. IMPRESSION: 1. Normal brain. Reviewed, dictated and finalized at location A. IMPRESSION: 1. Normal brain.
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
--- NOTE | 2022-10-31 14:10 | ECG_ITS ---
Measurements Intervals [place] Rate: 74 P: 29 IA: 152 QRS: 5 QRSD: 110 T: 31 QT: 389 QTc: 433 Interpretive Statements SINUS RHYTHM DELAYED PRECORDIAL R/S TRANSITION BORDERLINE T WAVE ABNORMALITY- ANTERIOR LEADS BORDERLINE ECG COMPARED TO ECG 07/09/2022 22:33:19 NO SIGNIFICANT CHANGES Electronically Signed On 10-31-2022 16:54:32 CDT by Jeffery Flores D.O.
--- NOTE | 2022-10-31 14:15 | ED.CHESTPAIN ---
HPI - Chest Pain General Chief Complaint: Chest Pain Stated Complaint: dizzy; high blood pressure Time Seen by Provider: 10/31/22 13:58 Source: patient Mode of arrival: ambulatory Limitations: no limitations History of Present Illness HPI narrative: 57-year-old female, smoker hypertension anxiety / depression asthma / COPD CHF presents to the ER with 8 hour history of -- dizziness. The patient feels lightheaded. No vertigo. No focal neuro deficits. -- Low blood pressure -- chest discomfort. No relationship to exercise of breathing. No prior history of CAD or stress test. MD complaint: chest heaviness Onset (ago): hour(s) ( Symptoms present since this morning.) Timing of current episode: constant Prior episodes: No Pain location: substernal Pain radiation: neck Severity: mild Quality: tightness Relieving factors: nothing Exacerbating factors: nothing Treatment prior to arrival: none Risk Factors Coronary artery disease risk factors: smoking history, hyperlipidemia and hypertension Thoracic aortic dissection risk factors: longstanding hypertension Related Data On Oral Contraceptives: No Home Medications Medication Instructions Recorded Confirmed omeprazole magnesium 20 mg 20 mg PO DAILY 04/13/19 10/31/22 tablet,delayed release (Prilosec OTC) atorvastatin 40 mg tablet 40 mg PO DAILY 06/01/21 10/31/22 fluoxetine 40 mg capsule 40 mg PO DAILY 06/01/21 10/31/22 multivitamin with minerals 1 tablet PO DAILY 12/01/21 10/31/22 lisinopril 40 mg tablet 40 mg PO DAILY 10/31/22 10/31/22 Allergies Allergy/AdvReac Type Severity Reaction Status Date / Time No Known Allergies Allergy Unknown Verified 05/21/22 21:38 Review of Systems Review of Systems: All systems reviewed & are unremarkable except as noted in HPI and below Constitutional: Constitutional: Reports as per HPI, Reports no additional constitutional complaints, Reports fatigue and Reports weakness Eyes: Eyes: Reports as per HPI and Reports no additional eye complaints ENT: Reports system reviewed and no additional complaints, except as documented and Reports as per HPI Cardiovascular: Cardiovascular: Reports as per HPI, Reports no additional cardiovascular complaints and Reports chest pain Respiratory: Respiratory: Reports as per HPI and Reports no additional respiratory complaints Gastrointestinal: Gastrointestinal: Reports as per HPI and Reports no additional gastrointestinal complaints Genitourinary: Genitourinary: Reports no additional female genitourinary complaints Musculoskeletal: Musculoskeletal: Reports no additional musculoskeletal complaints and Reports as per HPI Integumentary/Breasts: Skin/Breast: Reports system reviewed and no additional complaints, except as docu and Reports as per HPI Neurologic: Reports system reviewed and no additional complaints, except as documented and Reports as per HPI Psychiatric: Psychiatric: Reports no additional psychiatric complaints and Reports as per HPI Endocrine: Endocrine: Reports no additional endocrine complaints and Reports as per HPI Hematologic/Lymphatic: Hematologic/Lymphatic: Reports no additional hematologic/lymphatic complaints and Reports as per HPI Allergic/Immunologic: Allergic/Immunologic: Reports no additional allergic/immunologic complaints and Reports as per HPI [facility] Past Medical History Medical History Anxiety Asthma Congestive heart failure COPD (chronic obstructive pulmonary disease) Depression Hx MRSA infection Hypertension Insect bite Surgical History Surgical History History of cholecystectomy History of hysterectomy History of incision and drainage Several areas to left forearm History of tubal ligation Family History Family History Father Heart disease Mother , Mother at age 60. Di
[2022-10-31 14:46] LABS: Basophils Absolute Auto 0.02 K/mm3 (0.00-0.10); Basophils Percent Auto 0.3 % (0.0-1.0); Eosinophils Absolute Auto 0.22 K/mm3 (0.02-0.50); Eosinophils Percent Auto 3.6 % (1.0-6.0); Hematocrit 35.4 % (35.0-49.0); Hemoglobin 11.6 g/dL (12.0-15.0); Immature Granulocyte Absolute 0.02 K/mm3 (0.00-0.00); Immature Granulocyte Percent A 0.3 % (0.0-0.0); Lymphocytes Absolute Auto 1.83 K/mm3 (1.10-4.50); Lymphocytes Percent Auto 29.8 % (18.0-42.0); Mean Corpuscular HGB Conc 32.8 g/dL (32.0-36.0); Mean Corpuscular Hemoglobin 29.1 pg (27.0-31.0); Mean Corpuscular Volume 88.9 fL (78.0-102.0); Mean Platelet Volume 9.8 fl (9.2-11.8); Monocytes Absolute Auto 0.37 K/mm3 (0.10-0.90); Neutrophils Absolute Auto 3.7 K/mm3 (1.7-7.2); Platelet Count Result 281 K/mm3 (150-420); Red Blood Count 3.98 M/mm3 (4.20-5.40); Red Cell Distribution Width 13.1 % (11.6-14.4); White Blood Count 6.1 K/mm3 (4.8-10.8)
[2022-10-31] MEDS: LACTATED RINGERS 1,000 ML 999 ML IV CONT (14:55)
[2022-10-31 15:07] LABS: Lactic Acid Reflex 0.8 mmol/L (0.4-2.0)
[2022-10-31 15:10] LABS: Alanine Aminotransferase 28 U/L (14-59); Alkaline Phosphatase 127 U/L (46-116); Anion Gap 8 mmol/L (8-16); Aspartate Amino Transferase 20 U/L (15-37); Bilirubin,Total 0.3 mg/dL (0.00-1.00); Blood Urea Nitrogen 9 mg/dL (7-18); Calcium 9.3 mg/dL (8.5-10.1); Carbon Dioxide 28 mmol/L (21-32); Chloride 106 mmol/L (98-108); Estimated CRCL calculation 117 ml/min; Estimated Glomerular Filt Rate > 60; Glucose 94 mg/dL (70-99); NT Pro B Type Natriuretic Pept 84 pg/mL (0-125); Osmolality Calculated 292 mOsm/kg (285-295); Potassium 3.4 mmol/L (3.5-5.1); Sodium 142 mmol/L (136-145); Total Protein 6.6 g/dL (6.4-8.2)
[2022-10-31 15:31] LABS: Thyroid Stimulating Hormone 0.53 uIU/mL (0.36-3.74)
[2022-10-31 15:35] LABS: Troponin I < 4.0 ng/L (0.00-60.4)
[2022-10-31 15:51] LABS: Appearance Urine Cloudy (Clear); Bilirubin Urine Negative (Negative); Blood Urine Negative (Negative); Color Urine Light Yellow (Yellow); Glucose Urine UA Negative (Negative); Ketones Urine Negative (Negative); Leukocyte Esterase Ur 2+ LEU/UL (Negative); Nitrate Urine Negative (Negative); Protein Urine Trace (Negative); Specific Grav Ur 1.025 (1.010-1.020)
[2022-10-31 15:57] LABS: Add Urine Microscopic? YES; Bacteria Urine 1+ /hpf; RBC Urine None seen /hpf (0-2); Squamous Epithelial Cell Urine Moderate /hpf (Few)
--- NOTE | 2022-11-02 13:59 | PC.NURSE ---
urine culture reviewed. no growth noted.
== END 2022-10-31 17:00 | disposition home or self-care (01) ==
PROVIDERS: Emergency Provider Internal Medicine Critical Care Medicine; PCP Physician Assistant
DX: E86.0 Dehydration (principal); F41.9 Anxiety disorder, unspecified; N30.00 Acute cystitis without hematuria; R07.89 Other chest pain; I11.0 Hypertensive heart disease with heart failure; I50.9 Heart failure, unspecified; J44.9 Chronic obstructive pulmonary disease, unspecified; Z87.891 Personal history of nicotine dependence
CPT/HCPCS: 36415; 70450; 71045; 80053; 81001; 83605; 83880; 84443; 84484; 85025; 87086; 93005; 96360; 99284; J7120

== ENCOUNTER 2022-11-10 22:11 | Emergency (ER) | payer OTHER, SELFPAY ==
--- NOTE | ~2022-11-10 | CT_ITS ---
EXAMINATION: CT brain wo con DATE: 11/10/2022 23:09 INDICATION: Dizziness. Headache. TECHNIQUE: Computed tomography (CT) of the head was performed without intravenous contrast. The mA wa s adjusted according to patient size. Iterative reconstruction technique was employed. The dose-lengt h product was 529.67 mGy-cm. COMPARISON: Head CT 10/31/2022 FINDINGS: There is no intracranial hemorrhage, acute infarction, or abnormal intracranial mass lesion . The ventricles are normal in size. There is mild mucosal thickening in the ethmoid sinuses. The mas toid air cells are normal. IMPRESSION: 1. Normal brain. Reviewed, dictated and finalized at location E. IMPRESSION: 1. Normal brain.
[2022-11-10 22:15] VITALS: BP 165/81; PULSE 77; RESP 16; TEMP 36.7; O2SAT 98
--- NOTE | 2022-11-10 22:16 | ECG_ITS ---
Measurements Intervals [place] Rate: P: CO: QRS: QRSD: T: QT: QTc: Interpretive Statements NORMAL SINUS RHYTHM LOW VOLTAGE CANNOT RULE OUT SEPTAL INFARCTION, AGE UNDETERMINED ABNORMAL ECG Electronically Signed On 11-11-2022 8:37:02 CDT by Rafa Cruz M.D.
[2022-11-10 22:19] VITALS: BP 140/76
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
[2022-11-10 23:01] LABS: Basophils Absolute Auto 0.02 K/mm3 (0.00-0.10); Basophils Percent Auto 0.3 % (0.0-1.0); Eosinophils Percent Auto 4.4 % (1.0-6.0); Immature Granulocyte Absolute 0.02 K/mm3 (0.00-0.00); Immature Granulocyte Percent A 0.3 % (0.0-0.0); Immature Platelet Fraction Pct 4.4 % (1.0-7.0); Lymphocytes Absolute Auto 2.63 K/mm3 (1.10-4.50); Lymphocytes Percent Auto 38.3 % (18.0-42.0); Mean Corpuscular HGB Conc 31.6 g/dL (32.0-36.0); Mean Corpuscular Hemoglobin 28.8 pg (27.0-31.0); Mean Corpuscular Volume 91.1 fL (78.0-102.0); Mean Platelet Volume 10.7 fl (9.2-11.8); Monocytes Absolute Auto 0.42 K/mm3 (0.10-0.90); Monocytes Percent Auto 6.1 % (2.0-11.0); Neutrophils Absolute Auto 3.5 K/mm3 (1.7-7.2); Neutrophils Percent Auto 50.6 % (50.0-70.0); Platelet Count Result 260 K/mm3 (150-420); Red Blood Count 4.17 M/mm3 (4.20-5.40); Red Cell Distribution Width 13.2 % (11.6-14.4); White Blood Count 6.9 K/mm3 (4.8-10.8)
[2022-11-10 23:08] LABS: Appearance Urine Clear (Clear); Bilirubin Urine Negative (Negative); Blood Urine Negative (Negative); Color Urine Light Yellow (Yellow); Glucose Urine UA Negative (Negative); Ketones Urine Negative (Negative); Leukocyte Esterase Ur 1+ LEU/UL (Negative); Nitrate Urine Negative (Negative); Protein Urine Negative (Negative); Urobilinogen Urine 0.2 mg/dL (0.2-1.0)
[2022-11-10 23:13] LABS: Add Urine Microscopic? YES; Bacteria Urine Trace /hpf; RBC Urine 0-2 /hpf (0-2); Squamous Epithelial Cell Urine Few /hpf (Few)
[2022-11-10 23:23] LABS: Alanine Aminotransferase 30 U/L (14-59); Alkaline Phosphatase 132 U/L (46-116); Anion Gap 6 mmol/L (8-16); Aspartate Amino Transferase 24 U/L (15-37); Bilirubin,Total 0.3 mg/dL (0.00-1.00); Blood Urea Nitrogen 9 mg/dL (7-18); Carbon Dioxide 27 mmol/L (21-32); Chloride 106 mmol/L (98-108); Estimated CRCL calculation 113 ml/min; Estimated Glomerular Filt Rate > 60; Glucose 119 mg/dL (70-99); Osmolality Calculated 287 mOsm/kg (285-295); Potassium 3.8 mmol/L (3.5-5.1); Sodium 139 mmol/L (136-145); Total Protein 6.7 g/dL (6.4-8.2)
[2022-11-10 23:25] LABS: Troponin I < 4.0 ng/L (0.00-60.4)
[2022-11-10] MEDS: SULFAMETHOXAZOLE/TRIMETHOPRIM 800/160 MG DS TABLET 1 TAB PO (23:51)
[2022-11-11 00:05] VITALS: BP 122/71; PULSE 77; RESP 18; TEMP 36.4; O2SAT 98
--- NOTE | 2022-11-13 12:42 | PC.NURSE ---
FINAL URINE CULTURE RESULTS, NO GROWTH, NO ACTION OR FURTHER TREATMENT NEEDED.
== END 2022-11-11 00:07 | disposition home or self-care (01) ==
PROVIDERS: Emergency Provider Emergency Medicine; PCP Physician Assistant
DX: N30.00 Acute cystitis without hematuria (principal); I11.0 Hypertensive heart disease with heart failure; I50.9 Heart failure, unspecified; J44.9 Chronic obstructive pulmonary disease, unspecified; F32.A Depression, unspecified; F41.9 Anxiety disorder, unspecified; Z87.891 Personal history of nicotine dependence; Z79.51 Long term (current) use of inhaled steroids
CPT/HCPCS: 36415; 70450; 80053; 81001; 84484; 85025; 85055; 87086; 93005; 99284; A9270

== ENCOUNTER 2022-11-17 16:21 | Emergency (ER) | payer OTHER, SELFPAY ==
--- NOTE | ~2022-11-17 | XR_ITS ---
EXAMINATION: XR chest 1V portable INDICATION: Left-sided chest pain and shortness of breath TECHNIQUE: Portable AP chest at 1650 hours COMPARISON: 10/31/2022 FINDINGS: The patient is rotated. The lungs are free of acute opacities. No pleural effusion or pneum othorax identified. The cardiomediastinal silhouette is normal. IMPRESSION: 1. No acute cardiopulmonary abnormality. Reviewed, dictated and finalized at location B.
--- NOTE | 2022-11-17 16:26 | ECG_ITS ---
Measurements Intervals [place] Rate: 65 P: 32 DE: 151 QRS: 50 QRSD: 96 T: 15 QT: 403 QTc: 420 Interpretive Statements SINUS RHYTHM NONSPECIFIC T-WAVE ABNORMALITY Electronically Signed On 11-18-2022 17:12:31 CDT by Denzel Dodd M.D.
--- NOTE | 2022-11-17 16:40 | ED.CHESTPAIN ---
HPI - Chest Pain General Chief Complaint: Chest Pain Stated Complaint: chest pain Time Seen by Provider: 11/17/22 16:25 Source: patient Mode of arrival: EMS Limitations: no limitations History of Present Illness HPI narrative: Patient is a 57-year-old female with a significant past medical history that presents today with chest pain. Patient states that she was at work and started having chest pain. She says she sat down and did feel little better when she has had down. They called the ambulance and she ride here by EMS. EMS gave her aspirin and 1 nitro tablet and the chest pain was relieved. She currently does not have any chest pain or shortness of breath. She apparently has had this in the past and was here 3 weeks ago with the same symptoms. She says she does have a history of CHF. MD complaint: chest pain Pertinent past history: other (CHF) Onset (ago): hour(s) Timing of current episode: constant Prior episodes: Yes Onset: during exertion Pain location: substernal Pain radiation: left arm Severity: mild Pain scale (0-10): 1 Quality: dull Relieving factors: nitroglycerin Exacerbating factors: exertion Treatment prior to arrival: aspirin and nitroglycerin Risk Factors Coronary artery disease risk factors: hypertension Thoracic aortic dissection risk factors: none Related Data Home Medications Medication Instructions Recorded Confirmed omeprazole magnesium 20 mg 20 mg PO DAILY 04/13/19 11/10/22 tablet,delayed release (Prilosec OTC) atorvastatin 40 mg tablet 40 mg PO DAILY 06/01/21 11/10/22 fluoxetine 40 mg capsule 40 mg PO DAILY 06/01/21 11/10/22 multivitamin with minerals 1 tablet PO DAILY 12/01/21 11/10/22 lisinopril 40 mg tablet 40 mg PO DAILY 10/31/22 11/10/22 Allergies Allergy/AdvReac Type Severity Reaction Status Date / Time No Known Allergies Allergy Unknown Verified 11/10/22 22:13 Review of Systems Review of Systems: All systems reviewed & are unremarkable except as noted in HPI and below Constitutional: Constitutional: Reports no additional constitutional complaints Eyes: Eyes: Reports no additional eye complaints ENT: Reports system reviewed and no additional complaints, except as documented Cardiovascular: Cardiovascular: Reports chest pain Respiratory: Respiratory: Reports no additional respiratory complaints Gastrointestinal: Gastrointestinal: Reports no additional gastrointestinal complaints Genitourinary: Genitourinary: Reports no additional female genitourinary complaints Musculoskeletal: Musculoskeletal: Reports no additional musculoskeletal complaints Integumentary/Breasts: Skin/Breast: Reports system reviewed and no additional complaints, except as docu Neurologic: Reports system reviewed and no additional complaints, except as documented Psychiatric: Psychiatric: Reports no additional psychiatric complaints Endocrine: Endocrine: Reports no additional endocrine complaints PMFSH Past Medical History Medical History Anxiety Asthma Congestive heart failure COPD (chronic obstructive pulmonary disease) Depression Hx MRSA infection Hypertension Insect bite Surgical History Surgical History History of cholecystectomy History of hysterectomy History of incision and drainage Several areas to left forearm History of tubal ligation Family History Family History Father Heart disease Mother , Mother at age 60. 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 Social History Social History Social History: The patient is but lives with her boyfriend now and her daughter and granddaughter. The patient has 2 children. She denies any alcohol or any other illicit drugs. The patient w
[2022-11-17 16:45] VITALS: BP 122/69; PULSE 77; RESP 20; TEMP 36.9; O2SAT 95
[2022-11-17 16:47] LABS: Basophils Absolute Auto 0.01 K/mm3 (0.00-0.10); Basophils Percent Auto 0.2 % (0.0-1.0); Eosinophils Absolute Auto 0.23 K/mm3 (0.02-0.50); Eosinophils Percent Auto 3.8 % (1.0-6.0); Hematocrit 36.9 % (35.0-49.0); Hemoglobin 12.1 g/dL (12.0-15.0); Immature Granulocyte Absolute 0.01 K/mm3 (0.00-0.00); Immature Granulocyte Percent A 0.2 % (0.0-0.0); Lymphocytes Absolute Auto 2.23 K/mm3 (1.10-4.50); Lymphocytes Percent Auto 36.7 % (18.0-42.0); Mean Corpuscular HGB Conc 32.8 g/dL (32.0-36.0); Mean Corpuscular Hemoglobin 29.2 pg (27.0-31.0); Mean Corpuscular Volume 89.1 fL (78.0-102.0); Monocytes Absolute Auto 0.34 K/mm3 (0.10-0.90); Monocytes Percent Auto 5.6 % (2.0-11.0); Neutrophils Absolute Auto 3.3 K/mm3 (1.7-7.2); Neutrophils Percent Auto 53.5 % (50.0-70.0); Platelet Count Result 297 K/mm3 (150-420); Red Blood Count 4.14 M/mm3 (4.20-5.40); Red Cell Distribution Width 13.3 % (11.6-14.4); White Blood Count 6.1 K/mm3 (4.8-10.8)
[2022-11-17 17:01] VITALS: O2SAT 95
[2022-11-17 17:01] LABS: INR 0.9; Partial Thromboplastin Time 31.6 SEC (23.90-30.70); Prothrombin Time 10.3 Seconds (9.50-12.10)
[2022-11-17 17:05] LABS: D Dimer 0.42 mg/L (0.19-0.50)
[2022-11-17 17:09] LABS: Alanine Aminotransferase 31 U/L (14-59); Albumin Level 3.4 g/dL (3.4-5.0); Alkaline Phosphatase 142 U/L (46-116); Anion Gap 10 mmol/L (8-16); Aspartate Amino Transferase 20 U/L (15-37); Bilirubin,Total 0.3 mg/dL (0.00-1.00); Blood Urea Nitrogen 10 mg/dL (7-18); Calcium 9.5 mg/dL (8.5-10.1); Carbon Dioxide 27 mmol/L (21-32); Chloride 103 mmol/L (98-108); Estimated CRCL calculation 101 ml/min; Estimated Glomerular Filt Rate > 60; Glucose 106 mg/dL (70-99); Lipase 27 U/L (16-77); NT Pro B Type Natriuretic Pept 27 pg/mL (0-125); Osmolality Calculated 289 mOsm/kg (285-295); Potassium 3.8 mmol/L (3.5-5.1); Sodium 140 mmol/L (136-145); Total Protein 6.9 g/dL (6.4-8.2)
[2022-11-17 17:13] LABS: Troponin I < 4.0 ng/L (0.00-60.4)
[2022-11-17 17:54] VITALS: BP 126/68; PULSE 78; RESP 20; TEMP 36.3; O2SAT 98
== END 2022-11-17 18:10 | disposition home or self-care (01) ==
PROVIDERS: Emergency Provider Family Medicine; PCP Physician Assistant
DX: I20.89 Other forms of angina pectoris (principal); I11.0 Hypertensive heart disease with heart failure; I50.9 Heart failure, unspecified; J44.9 Chronic obstructive pulmonary disease, unspecified; Z87.891 Personal history of nicotine dependence
CPT/HCPCS: 36415; 71045; 80053; 83690; 83880; 84484; 85025; 85380; 85610; 85730; 93005; 99284

== ENCOUNTER 2023-01-19 21:12 | Emergency (ER) | payer OTHER, SELFPAY ==
--- NOTE | ~2023-01-19 | XR_ITS ---
EXAMINATION: XR wrist RT min 3V DATE: 01/19/2023 22:39 INDICATION: Right wrist injury post fall TECHNIQUE: Posteroanterior, ulnar deviation, oblique, and lateral views of the right wrist were obtai hyun. COMPARISON: none FINDINGS: Alignment is normal. No fracture. Moderate osteoarthritis at the triscaphe joint and mild osteoarthri tis at a few of the interphalangeal joints. Soft tissues are unremarkable. IMPRESSION: 1. No acute osseous abnormality. Reviewed, dictated and finalized at location A. ESTATE AGENCY PRINCIPAL
--- NOTE | ~2023-01-19 | XR_ITS ---
EXAMINATION: XR lumbar spine 2-3V DATE: 01/19/2023 22:39 INDICATION: Lumbar pain post fall TECHNIQUE: Anteroposterior and lateral views of the lumbar spine, and cone-down lateral view of the l umbosacral junction were obtained. COMPARISON: 09/08/2022 FINDINGS: Bilateral hypoplastic riblets at T12. Alignment is normal. Vertebral body heights are normal. Mild di sc height loss at L1-L2 through L3-L4 and at multiple levels in the lower thoracic spine. There is mu ltilevel mild lumbar facet osteoarthritis. There is also mild bilateral sacroiliac osteoarthritis. Ch olecystectomy clips in right upper quadrant. IMPRESSION: 1. Mild lumbar and lower thoracic spondylosis. Reviewed, dictated and finalized at location A. TECHNICIAN
[2023-01-19 21:15] VITALS: BP 152/91; PULSE 82; RESP 18; TEMP 37; O2SAT 100
[2023-01-19 21:19] VITALS: BP 152/91; PULSE 97; RESP 18; TEMP 37; O2SAT 100
[2023-01-19] MEDS: KETOROLAC (*BKC) 60 MG/2 ML VIAL IM (22:29)
--- NOTE | 2023-01-19 23:12 | ED.FALL ---
HPI - Fall General Chief Complaint: Fall Stated Complaint: Fall Time Seen by Provider: 01/19/23 21:56 Source: patient Mode of arrival: ambulatory Limitations: no limitations History of Present Illness HPI Narrative: Patient 57-year-old female with a significant past medical history that presents today for fall injury. Patient fills morning she slipped on something her bathroom and hit her tailbone and with stretch hand injured right wrist. She states that the pain is in right wrist in her low back. The pain is worse with movement. Denies any other symptoms free she has been here multiple times the past for falls. Most of her falls have been mechanical. She denies any other symptoms. MD complaint: fall Onset (ago): hour(s) Fall from: standing Fall witnessed: no Place fall occurred: home Loss of consciousness: none Symptoms prior to fall: none Context: tripped/slipped Location of injury: back and other (right wrist) Severity: moderate Severity scale (1-10): 5 Quality: dull and stabbing Associated symptoms (after fall): denies Related Data Home Medications Medication Instructions Recorded Confirmed omeprazole magnesium 20 mg 20 mg PO DAILY 04/13/19 12/18/22 tablet,delayed release (Prilosec OTC) atorvastatin 40 mg tablet 60 mg PO DAILY 06/01/21 12/18/22 fluoxetine 40 mg capsule 40 mg PO DAILY 06/01/21 12/18/22 multivitamin with minerals 1 tablet PO DAILY 12/01/21 12/18/22 lisinopril 40 mg tablet 40 mg PO DAILY 10/31/22 12/18/22 olanzapine 10 mg tablet 10 mg PO HS 11/17/22 12/18/22 Allergies Allergy/AdvReac Type Severity Reaction Status Date / Time No Known Allergies Allergy Unknown Verified 01/19/23 21:18 Review of Systems Review of Systems: All systems reviewed & are unremarkable except as noted in HPI and below Constitutional: Constitutional: Reports no additional constitutional complaints Eyes: Eyes: Reports no additional eye complaints ENT: Reports system reviewed and no additional complaints, except as documented Cardiovascular: Cardiovascular: Reports no additional cardiovascular complaints Respiratory: Respiratory: Reports no additional respiratory complaints Gastrointestinal: Gastrointestinal: Reports no additional gastrointestinal complaints Genitourinary: Genitourinary: Reports no additional female genitourinary complaints Musculoskeletal: Musculoskeletal: Reports as per HPI, Reports back pain and Reports arthralgias (right wrist ) Integumentary/Breasts: Skin/Breast: Reports system reviewed and no additional complaints, except as docu Neurologic: Reports system reviewed and no additional complaints, except as documented Psychiatric: Psychiatric: Reports no additional psychiatric complaints Endocrine: Endocrine: Reports no additional endocrine complaints Hematologic/Lymphatic: Hematologic/Lymphatic: Reports no additional hematologic/lymphatic complaints PMFSH Past Medical History Medical History Anxiety Asthma Congestive heart failure COPD (chronic obstructive pulmonary disease) Depression Hx MRSA infection Hypertension Insect bite Surgical History Surgical History History of cholecystectomy History of hysterectomy History of incision and drainage Several areas to left forearm History of tubal ligation Family History Family History Father Heart disease Mother , Mother at age 60. 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 Social History Social History Social History: The patient is but lives with her boyfriend now and her daughter and granddaughter. The patient has 2 children. She denies any alcohol or any other illicit drugs. The patient works in the [employer]. And she is a form
[2023-01-19 23:29] VITALS: BP 132/87; PULSE 90; RESP 18; O2SAT 98
== END 2023-01-19 23:37 | disposition home or self-care (01) ==
PROVIDERS: Emergency Provider Family Medicine; PCP Physician Assistant
DX: M47.816 Spondylosis without myelopathy or radiculopathy, lumbar region (principal); M25.531 Pain in right wrist; I11.0 Hypertensive heart disease with heart failure; I50.9 Heart failure, unspecified; J44.9 Chronic obstructive pulmonary disease, unspecified; Z87.891 Personal history of nicotine dependence; W01.0XXA Fall on same level from slipping, tripping and stumbling without subsequent striking against object, initial encounter; Y92.002 Bathroom of unspecified non-institutional (private) residence as the place of occurrence of the external cause
CPT/HCPCS: 72100; 73110; 96372; 99284; J1885

== ENCOUNTER 2023-01-22 09:21 | Outpatient (CLI) | payer OTHER, SELFPAY ==
--- NOTE | 2023-01-22 09:26 | EST_ITS ---
Patient Info Name: Palma Frost Age: 57 years : 1965 Gender: Female Ht: 66 in Wt: 276 lbs BSA: 2.48 m2 HR: 80 bpm BP: 102 / 62 mmHg Heart Rhythm: Sinus Rhythm Technical Quality: Good Exam Date: 01/22/2023 9:53 AM Exam Location: [facility] Patient Status: Outpatient Admit Date: 01/22/2023 Staff Ordering Physician: Jeffery Flores DO Attending Provider: Jeffery Flores DO Exercise Technologist: Sarah Gutierrez CRT Exercise Physician: Deisy Morel CEP Exam Type: CA stress test treadmill Study Info Indications Dyspnea - An exercise stress test was performed. History/Risk Factors Hypertension: Yes Tobacco Use: Current - Frequency Unknown Family History: Coronary Artery Disease History/Risk Factors Family HX CAD. Smoker. Hypertension. Summary 1. 1. Negative Messi exercise stress test for ischemic ST changes by ECG criteria. 2. 2. Poor functional capacity, achieving 5.3 METs of workload. 3. 3. Baseline hypertension. 4. 4. Appropriate HR response to exercise. 5. 5. Appropriate HR recovery at 1 minute post exercise. 6. 6. No imaging with stress testing. Protocol: Messi Stress ECG Details Stage: REST Duration (min): 1 min : 18 sec Speed (mph): 0.0 Grade (%): 0 HR (bpm): 80 SBP (mmHg): --- DBP (mmHg): --- METS: --- Stage: REST Duration (min): 4 min : 7 sec Speed (mph): 0.0 Grade (%): 0 HR (bpm): 96 SBP (mmHg): --- DBP (mmHg): --- METS: --- Stage: STAGE 1 Duration (min): 1 min : 0 sec Speed (mph): 1.7 Grade (%): 10 HR (bpm): 114 SBP (mmHg): --- DBP (mmHg): --- METS: --- Stage: STAGE 1 Duration (min): 2 min : 0 sec Speed (mph): 1.7 Grade (%): 10 HR (bpm): 124 SBP (mmHg): --- DBP (mmHg): --- METS: --- Stage: STAGE 1 Duration (min): 3 min : 0 sec Speed (mph): 1.7 Grade (%): 10 HR (bpm): 126 SBP (mmHg): 149 DBP (mmHg): 68 METS: --- Stage: STAGE 2 Duration (min): 0 min : 28 sec Speed (mph): 2.5 Grade (%): 12 HR (bpm): 126 SBP (mmHg): 149 DBP (mmHg): 68 METS: --- Stage: RECOVERY Duration (min): 0 min : 31 sec Speed (mph): 0.0 Grade (%): 0 HR (bpm): 128 SBP (mmHg): 149 DBP (mmHg): 68 METS: --- Stage: RECOVERY Duration (min): 1 min : 31 sec Speed (mph): 0.0 Grade (%): 0 HR (bpm): 103 SBP (mmHg): 149 DBP (mmHg): 68 METS: --- Stage: RECOVERY Duration (min): 2 min : 31 sec Speed (mph): 0.0 Grade (%): 0 HR (bpm): 90 SBP (mmHg): 156 DBP (mmHg): 87 METS: --- Stage: RECOVERY Duration (min): 3 min : 31 sec Speed (mph): 0.0 Grade (%): 0 HR (bpm): 85 SBP (mmHg): 156 DBP (mmHg): 87 METS: --- Stage: RECOVERY Duration (min): 4 min : 15 sec Speed (mph): 0.0 Grade (%): 0 HR (bpm): 90 SBP (mmHg): 146 DBP (mmHg): 83 METS: --- Rest HR: 96 bpm Peak HR: 128 bpm Rest Sys BP: 146 mmHg Peak Sys BP: 156 mmHg Max Pred HR: 164 bpm % Max Pred HR: 78 % Target HR: 139 bpm Max RPP: 19,9
== END 2023-01-22 09:22 | disposition home or self-care (01) ==
LOC: CHSCARD 09:23
PROVIDERS: PCP Physician Assistant; Visit Provider Internal Medicine Cardiovascular Disease
DX: R06.09 Other forms of dyspnea (principal)
CPT/HCPCS: 93017

== ENCOUNTER 2023-03-01 07:42 | Outpatient (CLI) | payer OTHER, SELFPAY ==
--- NOTE | ~2023-03-01 | MM_ITS ---
EXAMINATION: MM screening mireya BI w leeanna HISTORY: Screening mammogram TECHNIQUE: Craniocaudal and mediolateral oblique 3-D tomosynthesis images were obtained and synthetic 2-D images were generated. CAD analysis was submitted and interpreted. COMPARISON: 07/15/2021 BREAST PARENCHYMAL COMPOSITION: There are scattered areas of fibroglandular density. FINDINGS: No suspicious mass, calcification, or architectural distortion are identified in either joshua ast to suggest malignancy. There has been no suspicious interval change. IMPRESSION: 1. No mammographic evidence of malignancy. 2. Recommend routine screening mammography in one year. BI-RADS Category 1: Negative Reviewed, dictated and finalized at location A. ICAL PROJECT MANAGER
== END 2023-03-01 07:43 | disposition home or self-care (01) ==
LOC: CHSIMG 07:43
PROVIDERS: PCP Physician Assistant; Visit Provider Family Medicine
DX: Z12.31 Encounter for screening mammogram for malignant neoplasm of breast (principal)
CPT/HCPCS: 77063; 77067

== ENCOUNTER 2023-03-04 14:22 | Emergency (ER) | payer OTHER, SELFPAY ==
[2023-03-04] VITALS (23 sets, daily range): BP systolic 106–140; BP diastolic 73–99; PULSE 66–90; RESP 12–22; TEMP 36.1–36.4; O2SAT 95–99
--- NOTE | ~2023-03-04 | XR_ITS ---
EXAMINATION: XR chest 2V Exam Date/Time: 03/04/2023 14:53 OVEN ROASTER HISTORY: sob left sided chest heaviness, lightheaded Comparison: 12/05/2022, 01/26/2022. RESULT: Lines, tubes, and devices: None. Lungs and pleura: Mild diffuse reticular and reticulonodular opacities. Mild bilateral costophrenic angle blunting. Cardiomediastinal silhouette: Stable. Other: No acute osseous or upper abdominal finding. IMPRESSION: Mild respiratory bronchiolitis versus interstitial edema. Small bilateral effusions. Reviewed, dictated and finalized at location K. ROASTER IMPRESSION: Mild respiratory bronchiolitis versus interstitial edema. Small bilateral effus ions.
--- NOTE | ~2023-03-04 | CT_ITS ---
EXAMINATION: CT brain wo con DATE: 03/04/2023 15:01 INDICATION: near syncope . TECHNIQUE: Computed tomography (CT) of the head was performed without intravenous contrast. The mA wa s adjusted according to patient size. Iterative reconstruction technique was employed. The dose-lengt h product was 605.33 mGy-cm. COMPARISON: 11/10/2022. FINDINGS: No acute intracranial hemorrhage or extra-axial fluid collection. No hydrocephalus, mass, or herniation. No acute ischemic infarct. Unremarkable dural venous sinus attenuation. No acute osseous abnormality. Right maxillary and ethmoid mucosal thickening, the remaining aerated spaces are clear. IMPRESSION: No acute intracranial process. Reviewed, dictated and finalized at location K. ICAL THERAPY SUPERVISOR
--- NOTE | ~2023-03-04 | CT_ITS ---
EXAMINATION: CTA chest PE protocol DATE: 03/04/2023 17:51 INDICATION: sob and elevated dimer TECHNIQUE: Computed tomography angiography (CTA) of the chest was performed with 100 mL Omnipaque-350 intravenous contrast timed to evaluate the pulmonary arteries. Coronal maximum intensity projection 3D-reconstructions were created by the technologist. The dose-length product (DLP) was 1757.29 mGy-cm . Automated exposure control and iterative reconstruction technique were employed. COMPARISON: 12/01/2021; CT chest 02/28/2022. FINDINGS: Lung parenchyma and airways: Scattered sub-6 mm pulmonary nodules, likely infectious or inflammatory. Minimal bibasilar scar. Pleura: Unremarkable. Thoracic inlet, axillae and chest wall: Unremarkable. Thoracic aorta: Normal. Mediastinum: Normal. Heart and pericardium: Normal. Coronary artery calcifications: Absent. Upper abdomen: Status post cholecystectomy. Bones: No acute osseous finding. Pulmonary arteries: Study quality: Adequate. No pulmonary emboli detected. IMPRESSION: No CT evidence of acute pulmonary embolus. No acute intrathoracic process detected Reviewed, dictated and finalized at location K. F MEDICAL DIRECTOR
--- NOTE | 2023-03-04 14:30 | ECG_ITS ---
Measurements Intervals [place] Rate: 67 P: 35 NH: 144 QRS: 5 QRSD: 98 T: 30 QT: 382 QTc: 405 Interpretive Statements SINUS RHYTHM BORDERLINE R WAVE PROGRESSION, ANTERIOR LEADS BORDERLINE T WAVE ABNORMALITY- ANTERIOR LEADS BASELINE ARTIFACT- I, II, III, AVR, AVL, AVF, V5 BORDERLINE ECG COMPARED TO ECG 11/17/2022 16:55:54 NO SIGNIFICANT CHANGES Electronically Signed On 03-04-2023 19:30:39 BOBBIN PRESSER by Jeffery Flores D.O.
--- NOTE | 2023-03-04 14:49 | ED.DIZZY ---
HPI - Dizziness General Chief Complaint: Dizziness Stated Complaint: light-headed Time Seen by Provider: 03/04/23 14:30 Source: patient Mode of arrival: ambulatory Limitations: no limitations History of Present Illness HPI Narrative: patient is a 57-year-old female with recurrent spells of dizziness and hand and feet tingling. She has had multiple workups for multiple conditions which have all been negative up till now. She is here with one of her events which somewhat better at this time. MD elicited complaint: dizziness Pertinent past history: other ( Recurrent events of the same symptoms for the past year) Onset (ago): hour(s) (1) Timing: sudden onset Severity: moderate Description: sense of movement, room spinning , lightheadedness, off-balance, difficulty walking, near-syncope and ongoing Context: change in body position History of similar symptoms: Yes Exacerbating factors: movement/ambulation and change in body position Relieving factors: remaining still and rest Associated symptoms: shortness of breath Related Data Home Medications Medication Instructions Recorded Confirmed omeprazole magnesium 20 mg 20 mg PO DAILY 04/13/19 03/04/23 tablet,delayed release (Prilosec OTC) atorvastatin 40 mg tablet 60 mg PO DAILY 06/01/21 03/04/23 fluoxetine 40 mg capsule 40 mg PO DAILY 06/01/21 03/04/23 multivitamin with minerals 1 tablet PO DAILY 12/01/21 03/04/23 lisinopril 40 mg tablet 40 mg PO DAILY 10/31/22 03/04/23 olanzapine 10 mg tablet 10 mg PO HS 11/17/22 03/04/23 Allergies Allergy/AdvReac Type Severity Reaction Status Date / Time No Known Allergies Allergy Unknown Verified 03/04/23 14:32 Review of Systems Review of Systems: All systems reviewed & are unremarkable except as noted in HPI and below Constitutional: Constitutional: Reports no additional constitutional complaints Eyes: Eyes: Reports no additional eye complaints ENT: Reports system reviewed and no additional complaints, except as documented Cardiovascular: Cardiovascular: Reports no additional cardiovascular complaints Respiratory: Respiratory: Reports no additional respiratory complaints Gastrointestinal: Gastrointestinal: Reports no additional gastrointestinal complaints Genitourinary: Genitourinary: Reports no additional female genitourinary complaints Musculoskeletal: Musculoskeletal: Reports no additional musculoskeletal complaints Integumentary/Breasts: Skin/Breast: Reports system reviewed and no additional complaints, except as docu Neurologic: Reports system reviewed and no additional complaints, except as documented Psychiatric: Psychiatric: Reports no additional psychiatric complaints Endocrine: Endocrine: Reports no additional endocrine complaints Hematologic/Lymphatic: Hematologic/Lymphatic: Reports no additional hematologic/lymphatic complaints Allergic/Immunologic: Allergic/Immunologic: Reports no additional allergic/immunologic complaints PMFSH Past Medical History Medical History Anxiety Asthma Congestive heart failure COPD (chronic obstructive pulmonary disease) Depression Hx MRSA infection Hypertension Insect bite Surgical History Surgical History History of cholecystectomy History of hysterectomy History of incision and drainage Several areas to left forearm History of tubal ligation Family History Family History Father Heart disease Mother , Mother at age 60. Diabetes mellitus Sibling Rheumatoid arthritis Has RA in her hands, sees desizing machine operator. Social History Social History Social History: The patient is but lives with her boyfriend now and her daughter and granddaughter. The patient has 2 children. She denies any alcohol or any other illicit d
[2023-03-04 15:36] LABS: Basophils Absolute Auto 0.03 K/mm3 (0.00-0.10); Basophils Percent Auto 0.5 % (0.0-1.0); Eosinophils Absolute Auto 0.26 K/mm3 (0.02-0.50); Eosinophils Percent Auto 4.1 % (1.0-6.0); Hematocrit 39.3 % (35.0-49.0); Hemoglobin 12.6 g/dL (12.0-15.0); Immature Granulocyte Absolute 0.02 K/mm3 (0.00-0.00); Immature Granulocyte Percent A 0.3 % (0.0-0.0); Lymphocytes Percent Auto 34.5 % (18.0-42.0); Mean Corpuscular HGB Conc 32.1 g/dL (32.0-36.0); Mean Corpuscular Hemoglobin 28.1 pg (27.0-31.0); Mean Corpuscular Volume 87.5 fL (78.0-102.0); Monocytes Absolute Auto 0.37 K/mm3 (0.10-0.90); Monocytes Percent Auto 5.8 % (2.0-11.0); Neutrophils Absolute Auto 3.5 K/mm3 (1.7-7.2); Neutrophils Percent Auto 54.8 % (50.0-70.0); Platelet Count Result 299 K/mm3 (150-420); Red Blood Count 4.49 M/mm3 (4.20-5.40); Red Cell Distribution Width 13.1 % (11.6-14.4); White Blood Count 6.4 K/mm3 (4.8-10.8)
[2023-03-04 16:15] LABS: SARS-CoV-2 RNA PCR Negative (Negative)
[2023-03-04 16:35] LABS: Influenza A QL RT-PCR Negative (Negative); Influenza B QL RT-PCR Negative (Negative); RSV RNA, RT-PCR Negative (Negative)
[2023-03-04 16:43] LABS: Alanine Aminotransferase 30 U/L (14-59); Albumin Level 3.1 g/dL (3.4-5.0); Alkaline Phosphatase 153 U/L (46-116); Anion Gap 8 mmol/L (8-16); Aspartate Amino Transferase 19 U/L (15-37); Bilirubin,Total 0.2 mg/dL (0.00-1.00); Blood Urea Nitrogen 8 mg/dL (7-18); Calcium 8.9 mg/dL (8.5-10.1); Carbon Dioxide 31 mmol/L (21-32); Chloride 103 mmol/L (98-108); Estimated CRCL calculation 121 ml/min; Estimated Glomerular Filt Rate > 60; Glucose 102 mg/dL (70-99); NT Pro B Type Natriuretic Pept 36 pg/mL (0-125); Osmolality Calculated 292 mOsm/kg (285-295); Potassium 3.9 mmol/L (3.5-5.1); Sodium 142 mmol/L (136-145); Thyroid Stimulating Hormone 1.25 uIU/mL (0.36-3.74); Total Protein 7.1 g/dL (6.4-8.2); Troponin I 5.4 ng/L (0.00-60.4)
[2023-03-04 16:44] LABS: Appearance Urine Clear (Clear); Bilirubin Urine Negative (Negative); Blood Urine Negative (Negative); Color Urine Light Yellow (Yellow); Glucose Urine UA Negative (Negative); Ketones Urine Negative (Negative); Leukocyte Esterase Ur Negative LEU/UL (Negative); Nitrate Urine Negative (Negative); Protein Urine Negative (Negative); Urobilinogen Urine 0.2 mg/dL (0.2-1.0)
[2023-03-04 16:45] LABS: D Dimer 0.57 mg/L (0.19-0.50)
[2023-03-04 17:07] LABS: Add Urine Microscopic? NO
--- NOTE | 2023-03-04 17:13 | PC.NURSE ---
pt is lying on stretcher in exam room awaiting ct at this time. nad noted. will continue to monitor.
[2023-03-04 17:17] LABS: INR 0.9; Partial Thromboplastin Time 30.4 SEC (23.90-30.70)
== END 2023-03-04 18:30 | disposition home or self-care (01) ==
PROVIDERS: Emergency Provider Emergency Medicine; PCP Physician Assistant
DX: R42 Dizziness and giddiness (principal); I11.0 Hypertensive heart disease with heart failure; I50.9 Heart failure, unspecified; J44.9 Chronic obstructive pulmonary disease, unspecified; F41.9 Anxiety disorder, unspecified; F32.A Depression, unspecified; Z87.891 Personal history of nicotine dependence; Z79.51 Long term (current) use of inhaled steroids; Z20.822 Contact with and (suspected) exposure to COVID-19
CPT/HCPCS: 36415; 70450; 71046; 71275; 80053; 81003; 83880; 84443; 84484; 85025; 85380; 85610; 85730; 87637; 93005; 99284; Q9967

== ENCOUNTER 2023-06-15 08:50 | Outpatient (CLI) | payer OTHER, SELFPAY ==
--- NOTE | ~2023-06-15 | XR_ITS ---
Cervical Spine: AP, lateral, open-mouth views Clinical History: Pain Findings: The normal lordotic curve is maintained. No fracture evident. There is minimal grade 1 retr olisthesis of C4 over C5. There is moderate degenerative disc narrowing at C4-C5 and C5 and C6, with advanced degenerative disc narrowing at C6-C7. No instability evident on flexion or extension. Mild f acet joint degenerative changes are present. Pre-vertebral soft tissues are unremarkable. Impression: [id number] degenerative spondylosis, as above. Minimal grade 1 retrolisthesis of C4 over C5. Reviewed, dictated and finalized at location . Impression: [id number] degenerative spondylosis, as above. Minimal grade 1 retrolisthesis of C4 over C5.
--- NOTE | ~2023-06-15 | XR_ITS ---
EXAMINATION: XR lumbar spine 2-3V DATE: 06/15/2023 10:28 INDICATION: Chronic bilateral low back pain. Right-sided sciatica. TECHNIQUE: 3 views of lumbar spine were obtained. COMPARISON: Lumbar spine radiographs 01/19/2023 FINDINGS: There is 6 degrees dextrocurvature of lumbar spine. Vertebral body heights are normal. Ther e is mildly decreased disc height at L2-L3 and L3-L4. There is multilevel mild to moderate facet join t osteoarthritis. IMPRESSION: 1. Mild lumbar spondylosis. Reviewed, dictated and finalized at location A. IMPRESSION: 1. Mild lumbar spondylosis.
--- NOTE | ~2023-06-15 | XR_ITS ---
EXAMINATION: XR sacroiliac joints min 3V DATE: 06/15/2023 10:28 INDICATION: Low back pain. Right-sided sciatica. TECHNIQUE: 3 views of the sacroiliac joints were obtained. COMPARISON: None. FINDINGS: Bone alignment is normal. No fracture. There is mild osteoarthritis of right sacroiliac fra cture. IMPRESSION: 1. Mild osteoarthritis of right sacroiliac joint. Reviewed, dictated and finalized at location A.
[2023-06-15 09:26] LABS: Basophils Absolute Auto 0.02 K/mm3 (0.00-0.10); Basophils Percent Auto 0.3 % (0.0-1.0); Eosinophils Absolute Auto 0.28 K/mm3 (0.02-0.50); Eosinophils Percent Auto 4.7 % (1.0-6.0); Hematocrit 38.5 % (35.0-49.0); Hemoglobin 12.3 g/dL (12.0-15.0); Immature Granulocyte Absolute 0.01 K/mm3 (0.00-0.00); Immature Granulocyte Percent A 0.2 % (0.0-0.0); Lymphocytes Absolute Auto 1.91 K/mm3 (1.10-4.50); Lymphocytes Percent Auto 31.8 % (18.0-42.0); Mean Corpuscular HGB Conc 31.9 g/dL (32-36); Mean Corpuscular Hemoglobin 28.1 pg (27.0-31.0); Mean Corpuscular Volume 88.1 fL (78.0-102.0); Mean Platelet Volume 10.2 fl (9.2-11.8); Monocytes Absolute Auto 0.27 K/mm3 (0.10-0.90); Monocytes Percent Auto 4.5 % (2.0-11.0); Neutrophils Absolute Auto 3.51 K/mm3 (1.70-7.20); Neutrophils Percent Auto 58.5 % (50.0-70.0); Platelet Count Result 286 K/mm3 (150-420); Red Blood Count 4.37 M/mm3 (4.20-5.40)
[2023-06-15 09:52] LABS: Hemoglobin A1C 5.4 % (<5.7)
[2023-06-15 10:27] LABS: Erythrocyte Sedimentation Rate 32 mm/hr (0-20)
[2023-06-15 10:32] LABS: Alanine Aminotransferase 31 U/L (14-59); Albumin Level 3.1 g/dL (3.4-5.0); Alkaline Phosphatase 146 U/L (46-116); Anion Gap 10 mmol/L (4-12); Aspartate Amino Transferase 19 U/L (15-37); Bilirubin,Total 0.3 mg/dL (0.00-1.00); Blood Urea Nitrogen 11 mg/dL (7-18); CRP 1.2 mg/dL (0.0-0.9); Calcium 8.8 mg/dL (8.5-10.1); Carbon Dioxide 28 mmol/L (21-32); Chloride 103 mmol/L (98-108); Cholesterol 150 mg/dL (0-200); Estimated Glomerular Filt Rate > 60; Folic Acid 18.6 ng/mL (8.6->20); Free T4 Free Thyroxine 0.81 ng/dL (0.76-1.46); Glucose 171 mg/dL (70-99); HDL Direct 44 mg/dL (40-60); LDL Cholesterol Calculated 71 mg/dL (<130); Magnesium 1.8 mg/dL (1.8-2.4); Osmolality Calculated 295 mOsm/kg (285-295); Sodium 141 mmol/L (136-145); Thyroid Stimulating Hormone 1.27 uIU/mL (0.36-3.74); Total Protein 6.4 g/dL (6.4-8.2); Triglycerides 174 mg/dL (0-150); Vitamin B12 338 pg/mL (193-986)
[2023-06-18 10:34] LABS: Vitamin D 25 Hydroxy 41 ng/mL (30-100)
== END 2023-06-15 08:51 | disposition home or self-care (01) ==
LOC: CHSLAB 08:53
PROVIDERS: PCP Physician Assistant; Visit Provider Nurse Practitioner Family
DX: M54.2 Cervicalgia (principal); M54.41 Lumbago with sciatica, right side; M43.02 Spondylolysis, cervical region; M43.06 Spondylolysis, lumbar region; M47.898 Other spondylosis, sacral and sacrococcygeal region
CPT/HCPCS: 36415; 72040; 72100; 72202; 80053; 80061; 82306; 82607; 82746; 83036; 83735; 84439; 84443; 85025; 85652; 86038; 86140

== ENCOUNTER 2023-06-21 09:12 | Emergency (ER) | payer OTHER, SELFPAY ==
--- NOTE | ~2023-06-21 | XR_ITS ---
EXAMINATION: XR chest 1V portable DATE: 06/21/2023 09:49 INDICATION: Dyspnea TECHNIQUE: frontal view of the chest was obtained. COMPARISON: Chest radiograph dated 03/04/2023 FINDINGS: Persistent mild right basilar atelectasis along the apex of the right hemidiaphragm. No other airspac e opacities, pulmonary edema, pleural effusion or pneumothorax. Size is normal with prominent bilater al pericardial fat pads. Visualized bones and soft tissues are unremarkable. IMPRESSION: 1. Mild right basilar atelectasis. Reviewed, dictated and finalized at location A.
[2023-06-21 09:12] VITALS: BP 131/86; PULSE 106; RESP 24; TEMP 36.5; O2SAT 94
[2023-06-21 09:26] VITALS: O2SAT 94
[2023-06-21 09:45] VITALS: PULSE 109; RESP 20; O2SAT 98
[2023-06-21] MEDS: IPRATROPIUM 0.5 MG/ALBUTEROL SULFATE 2.5 MG AMPUL.NEB 3 ML INHALATION (09:48)
[2023-06-21 09:55] LABS: Basophils Absolute Auto 0.01 K/mm3 (0.00-0.10); Basophils Percent Auto 0.2 % (0.0-1.0); Eosinophils Absolute Auto 0.06 K/mm3 (0.02-0.50); Eosinophils Percent Auto 1.3 % (1.0-6.0); Hematocrit 38.1 % (35.0-49.0); Hemoglobin 12.4 g/dL (12.0-15.0); Immature Granulocyte Absolute 0.02 K/mm3 (0.00-0.00); Immature Granulocyte Percent A 0.4 % (0.0-0.0); Lymphocytes Absolute Auto 1.02 K/mm3 (1.10-4.50); Lymphocytes Percent Auto 22.7 % (18.0-42.0); Mean Corpuscular HGB Conc 32.5 g/dL (32-36); Mean Corpuscular Hemoglobin 28.4 pg (27.0-31.0); Mean Corpuscular Volume 87.4 fL (78.0-102.0); Mean Platelet Volume 10.2 fl (9.2-11.8); Monocytes Absolute Auto 0.48 K/mm3 (0.10-0.90); Monocytes Percent Auto 10.7 % (2.0-11.0); Neutrophils Absolute Auto 2.91 K/mm3 (1.70-7.20); Neutrophils Percent Auto 64.7 % (50.0-70.0); Platelet Count Result 265 K/mm3 (150-420); Red Blood Count 4.36 M/mm3 (4.20-5.40); Red Cell Distribution Width 13.3 % (11.6-14.4); White Blood Count 4.5 K/mm3 (4.8-10.8)
[2023-06-21 09:56] VITALS: PULSE 100; RESP 20; O2SAT 98
[2023-06-21 10:27] LABS: Alanine Aminotransferase 45 U/L (14-59); Albumin Level 3.2 g/dL (3.4-5.0); Alkaline Phosphatase 143 U/L (46-116); Aspartate Amino Transferase 32 U/L (15-37); Bilirubin,Total 0.4 mg/dL (0.00-1.00); Blood Urea Nitrogen 9 mg/dL (7-18); Calcium 9.3 mg/dL (8.5-10.1); Carbon Dioxide 31 mmol/L (21-32); Estimated CRCL calculation 99 ml/min; Estimated Glomerular Filt Rate > 60; Glucose 135 mg/dL (70-99); Total Protein 7.1 g/dL (6.4-8.2)
[2023-06-21 10:30] LABS: SARS-CoV-2 RNA PCR Positive (Negative)
[2023-06-21 10:33] LABS: Influenza A QL RT-PCR Negative (Negative); Influenza B QL RT-PCR Negative (Negative); RSV RNA, RT-PCR Negative (Negative)
[2023-06-21 10:46] LABS: Anion Gap 8 mmol/L (4-12); Chloride 97 mmol/L (98-108); Osmolality Calculated 282 mOsm/kg (285-295); Potassium 3.5 mmol/L (3.5-5.1); Sodium 136 mmol/L (136-145)
[2023-06-21] MEDS: methylPREDNISolone ACETATE 40 MG/ML VIAL 80 MG IM (10:47)
--- NOTE | 2023-06-21 10:47 | ED.SOB ---
HPI - SOB/Dyspnea General Chief Complaint: Shortness of Breath/Dyspnea Stated Complaint: shortness of breath and flu-like symptoms Time Seen by Provider: 06/21/23 09:23 Source: patient Mode of arrival: ambulatory Limitations: no limitations History of Present Illness HPI Narrative: this is a 58-year-old female with presenting with shortness of breath that started overnight with body aches and a headache with no chest pain no abdominal pain no nausea vomiting no fever. No dysuria no hematuria no flank pain. Patient with history of asthma /COPD. MD elicited complaint: shortness of breath and cough Onset (ago): day(s) Context: recent illness Timing: constant Severity: mild Exacerbating factors: nothing Relieving factors: bronchodilators Known history of: COPD and asthma Related Data Home Medications Medication Instructions Recorded Confirmed omeprazole magnesium 20 mg 20 mg PO DAILY 04/13/19 06/21/23 tablet,delayed release (Prilosec OTC) atorvastatin 40 mg tablet 60 mg PO DAILY 06/01/21 06/21/23 fluoxetine 40 mg capsule (Prozac) 20 mg PO BID 06/01/21 06/21/23 multivitamin with minerals 1 tablet PO DAILY 12/01/21 06/21/23 lisinopril 40 mg tablet 40 mg PO DAILY 10/31/22 06/21/23 olanzapine 10 mg tablet 10 mg PO HS 11/17/22 06/21/23 duloxetine 20 mg capsule,delayed 30 mg PO DAILY 06/21/23 06/21/23 release (Cymbalta) tiotropium bromide 1.25 1 inh inhalation DAILY 06/21/23 06/21/23 mcg/actuation mist for inhalation (Spiriva Respimat) Allergies Allergy/AdvReac Type Severity Reaction Status Date / Time No Known Allergies Allergy Unknown Verified 06/21/23 09:27 Review of Systems Review of Systems: All systems reviewed & are unremarkable except as noted in HPI and below PMFSH Past Medical History Medical History Anxiety Asthma Congestive heart failure COPD (chronic obstructive pulmonary disease) Depression Hx MRSA infection Hypertension Insect bite Surgical History Surgical History History of cholecystectomy History of hysterectomy History of incision and drainage Several areas to left forearm History of tubal ligation Family History Family History Father Heart disease Mother , Mother at age 60. Diabetes mellitus Sibling Rheumatoid arthritis Has RA in her hands, sees injection operator. Social History Social History Social History: The patient is but lives with her boyfriend now and her daughter and granddaughter. The patient has 2 children. She denies any alcohol or any other illicit drugs. The patient works in [employer] And she is a former smoker. She does not have a durable power tax attorney for healthcare. Code status full code Smoking packs per day: 1.5 Smoking cigarettes per day: 30.0 Years smoked: 30 Smoking pack-years: 45.00 Smoking status: Former smoker Tobacco type: cigarettes Second hand tobacco smoke exposure: Yes Alcohol intake: never Substance use: never Substance use type: does not use Lack of Transportation: No Lack of Food: Sometimes True Current Housing: I Have Housing Concerned About Future Housing: No Difficulty Paying Gas/Electric Bills: No Difficulty Paying for Meds: No Currently Unemployed: No Education: High School Diploma/GED Difficulty w/ Childcare or Family Care: No Spiritual care concerns: No Exam Const: General: healthy appearing and no acute distress Nutritional Appearance: well nourished Orientation/consciousness: patient oriented x3 Limitations: no limitations HENMT: Head: normal to inspection Chest: Chest palpation & inspection: normal inspection of the chest Resp: Effort & Inspection: normal respiratory effort Auscultation: clear to auscultation bilat
[2023-06-21 11:02] VITALS: BP 130/75; PULSE 99; RESP 20; TEMP 36.7; O2SAT 91
== END 2023-06-21 11:02 | disposition home or self-care (01) ==
PROVIDERS: Emergency Provider Emergency Medicine; PCP Physician Assistant
DX: U07.1 COVID-19 (principal); J44.9 Chronic obstructive pulmonary disease, unspecified; I11.0 Hypertensive heart disease with heart failure; I50.9 Heart failure, unspecified; F41.9 Anxiety disorder, unspecified; F32.A Depression, unspecified; Z79.51 Long term (current) use of inhaled steroids; Z87.891 Personal history of nicotine dependence
CPT/HCPCS: 36415; 71045; 80053; 85025; 87637; 94640; 96372; 99283; J1010

== ENCOUNTER 2023-07-24 11:52 | Emergency (ER) | payer OTHER, SELFPAY ==
--- NOTE | ~2023-07-24 | XR_ITS ---
EXAMINATION: [id number] DATE: 07/24/2023 12:23 INDICATION: Left rib pain. Fall. TECHNIQUE: A frontal view of the chest and 2 views on 3 radiographs of the left ribs were obtained. COMPARISON: Chest 2 views 03/04/2023, chest single view 06/21/2023 FINDINGS: There is no pneumonia, pleural effusion, or pneumothorax. The heart size is normal. IMPRESSION: 1. No rib fracture. Reviewed, dictated and finalized at location E. IMPRESSION: 1. No rib fracture.
[2023-07-24 11:53] VITALS: BP 134/82; PULSE 86; RESP 20; TEMP 36.4; O2SAT 95
--- NOTE | 2023-07-24 11:56 | ED.GENADULT ---
HPI - General Adult General Chief complaint: Fall Stated complaint: side pain Time Seen by Provider: 07/24/23 11:55 History of Present Illness HPI narrative: the patient is a 58 year old woman with history of obesity, COPD, hypertension anxiety and asthma as well as CHF. Prior tubal ligation hysterectomy cholecystectomy. This morning, at 3:00 a.m., she fell as she was getting out of bed to go to the bathroom, landing on her left side, resulting in pain in the left lower anterior rib cage and left flank region. The pain increases with respiration or coughing or movement or touching that area. There is no bruising. She took ibuprofen at 7:00 a.m. but no other pain medications. No pain elsewhere such as neck arms legs back head. No nausea vomiting. No other complaints. Related Data Home Medications Medication Instructions Recorded Confirmed omeprazole magnesium 20 mg 20 mg PO DAILY 04/13/19 07/24/23 tablet,delayed release (Prilosec OTC) atorvastatin 40 mg tablet 60 mg PO DAILY 06/01/21 07/24/23 fluoxetine 40 mg capsule (Prozac) 20 mg PO BID 06/01/21 07/24/23 multivitamin with minerals 1 tablet PO DAILY 12/01/21 07/24/23 lisinopril 40 mg tablet 40 mg PO DAILY 10/31/22 07/24/23 olanzapine 10 mg tablet 10 mg PO HS 11/17/22 07/24/23 tiotropium bromide 1.25 1 inh inhalation DAILY 06/21/23 07/24/23 mcg/actuation mist for inhalation (Spiriva Respimat) Allergies Allergy/AdvReac Type Severity Reaction Status Date / Time No Known Allergies Allergy Unknown Verified 07/24/23 11:53 Review of Systems Review of Systems: All systems reviewed & are unremarkable except as noted in HPI and below Constitutional: Constitutional: Denies chills, Denies excessive sweating, Denies fatigue, Denies fever(s), Denies headache(s) and Denies weakness Eyes: Eyes: Denies change in vision and Denies photophobia ENT: Denies dysphagia, Denies dizziness, Denies headache(s), Denies lip swelling, Denies nasal congestion, Denies sore throat and Denies tongue swelling Cardiovascular: Cardiovascular: Reports chest pain ( Left lower anterior rib cage), Denies syncope, Denies rapid heart rate and Denies dyspnea Respiratory: Respiratory: Denies cough, Denies dyspnea and Denies wheezing Gastrointestinal: Gastrointestinal: Reports abdominal pain ( left upper quadrant abdomen), Denies constipation, Denies dysphagia, Denies diarrhea, Denies nausea and Denies vomiting Genitourinary: Genitourinary: Denies hematuria, Denies urinary frequency, Denies dysuria and Denies urinary urgency Musculoskeletal: Musculoskeletal: Denies back pain, Denies myalgias, Denies arthralgias, Denies joint swelling and Denies numbness Integumentary/Breasts: Skin/Breast: Denies pruritus, Denies erythema and Denies rash Neurologic: Denies confusion, Denies dizziness, Denies syncope, Denies headache(s), Denies focal weakness, Denies numbness and Denies weakness Psychiatric: Psychiatric: Denies anxiety and Denies confusion Endocrine: Endocrine: Denies excessive sweating and Denies fatigue Hematologic/Lymphatic: Hematologic/Lymphatic: Denies easy bleeding and Denies easy bruising Allergic/Immunologic: Allergic/Immunologic: Denies lip swelling, Denies tongue swelling and Denies wheezing PMFSH Past Medical History Medical History Anxiety Asthma Congestive heart failure COPD (chronic obstructive pulmonary disease) Depression Hx MRSA infection Hypertension Insect bite Surgical History Surgical History History of cholecystectomy History of hysterectomy History of incision and drainage Several areas to left forearm History of tubal ligation Family History Family History Father Heart disease Mother , Mother at age 60. Diabetes mellitus Sibling Rheumatoid arthritis Has RA in her hands, se
[2023-07-24] MEDS: CYCLOBENZAPRINE HCL 10 MG TABLET PO (12:03)
[2023-07-24] MEDS: ACETAMINOPHEN 325 MG TABLET 650 MG PO (12:04)
[2023-07-24] MEDS: KETOROLAC (*BKC) 60 MG/2 ML VIAL IM (12:04)
--- NOTE | 2023-07-24 12:05 | PC.NURSE ---
Patient taken to Xray.
--- NOTE | 2023-07-24 12:25 | PC.NURSE ---
Patient back in room from xray
[2023-07-24 12:35] VITALS: BP 106/68; PULSE 70; RESP 17; O2SAT 92
[2023-07-24] MEDS: HYDROcodone/acetaminophen (*CRX) 5-325 MG TABLET 1 TAB PO (12:50)
[2023-07-24 12:58] VITALS: BP 104/82; PULSE 71; RESP 17; TEMP 36.4; O2SAT 94
== END 2023-07-24 12:58 | disposition home or self-care (01) ==
LOC: CHSED 12:49
PROVIDERS: Emergency Provider Emergency Medicine; PCP Physician Assistant
DX: S20.212A Contusion of left front wall of thorax, initial encounter (principal); I10 Essential (primary) hypertension; I11.0 Hypertensive heart disease with heart failure; I50.9 Heart failure, unspecified; Z79.899 Other long term (current) drug therapy; Z87.891 Personal history of nicotine dependence; W06.XXXA Fall from bed, initial encounter
CPT/HCPCS: 71101; 96372; 99283; A9270; J1885

== ENCOUNTER 2023-08-09 20:56 | Emergency (ER) | payer OTHER, SELFPAY ==
--- NOTE | ~2023-08-09 | XR_ITS ---
XR chest 1V portable Ordering provider: Miguel Swartz MD History: 58 years Female with . shortness of breath/HX OF COPD AND CHF . Comparison: June 21, 2023 FINDINGS: MEDIASTINUM: The cardiac silhouette is not enlarged. LUNGS: No effusion or pneumothorax . Opacification in the left lung base suggestive of atelectasis ve rsus pneumonia. OTHER: No free air under the diaphragm. Degenerative changes of the spine. IMPRESSION: Left basal atelectasis versus pneumonia. Reviewed, dictated and finalized at location A.
[2023-08-09 20:56] VITALS: BP 146/91; PULSE 88; RESP 22; TEMP 36.6; O2SAT 91
--- NOTE | 2023-08-09 21:12 | ECG_ITS ---
Test Date: 2023-08-09 21:12:47 Measurements Intervals [place] Rate: 79 P: 57 ME: 147 QRS: 24 QRSD: 93 T: 67 QT: 381 QTc: 439 Interpretive Statements SINUS RHYTHM DELAYED PRECORDIAL R/S TRANSITION LOW QRS VOLTAGE IN PRECORDIAL LEADS BASELINE ARTIFACT- I, II, III, AVR, AVL, AVF, V1-V3 BORDERLINE ECG No previous ECG available for comparison Electronically Signed On 08-10-2023 11:40:19 CDT by Jeffery Flores D.O.
[2023-08-09 21:17] VITALS: BP 136/67; PULSE 80; RESP 20; O2SAT 91
--- NOTE | 2023-08-09 21:26 | PC.NURSE ---
attempted iv line with no success. will have another RN attempt to place line.
[2023-08-09 21:31] VITALS: BP 128/78; PULSE 84; RESP 21; O2SAT 90
[2023-08-09] MEDS: IPRATROPIUM 0.5 MG/ALBUTEROL SULFATE 2.5 MG AMPUL.NEB 3 ML INHALATION (21:31)
[2023-08-09 21:37] LABS: Basophils Absolute Auto 0.02 K/mm3 (0.00-0.10); Basophils Percent Auto 0.3 % (0.0-1.0); Eosinophils Absolute Auto 0.27 K/mm3 (0.02-0.50); Eosinophils Percent Auto 3.8 % (1.0-6.0); Hemoglobin 12.2 g/dL (12.0-15.0); Immature Granulocyte Absolute 0.02 K/mm3 (0.00-0.00); Immature Granulocyte Percent A 0.3 % (0.0-0.0); Lymphocytes Absolute Auto 2.23 K/mm3 (1.10-4.50); Lymphocytes Percent Auto 31.6 % (18.0-42.0); Mean Corpuscular HGB Conc 32.1 g/dL (32-36); Mean Corpuscular Hemoglobin 28.8 pg (27.0-31.0); Mean Corpuscular Volume 89.8 fL (78.0-102.0); Mean Platelet Volume 9.8 fl (9.2-11.8); Monocytes Absolute Auto 0.36 K/mm3 (0.10-0.90); Monocytes Percent Auto 5.1 % (2.0-11.0); Neutrophils Absolute Auto 4.16 K/mm3 (1.70-7.20); Neutrophils Percent Auto 58.9 % (50.0-70.0); Platelet Count Result 282 K/mm3 (150-420); Red Blood Count 4.23 M/mm3 (4.20-5.40); Red Cell Distribution Width 13.8 % (11.6-14.4); White Blood Count 7.1 K/mm3 (4.8-10.8)
[2023-08-09] MEDS: methylPREDNISolone SOD SUCC 125 MG VIAL IV PUSH (21:37)
--- NOTE | 2023-08-09 21:44 | PC.NURSE ---
patient resting on stretcher. call light in reach. at the bedside. wob labored even after duoneb
[2023-08-09 21:53] LABS: INR 0.9; Partial Thromboplastin Time 28.2 Sec (23.9-30.70); Prothrombin Time 9.8 Seconds (9.50-12.1)
--- NOTE | 2023-08-09 21:54 | ED.SOB ---
HPI - SOB/Dyspnea General Chief Complaint: Shortness of Breath/Dyspnea Stated Complaint: SOB Time Seen by Provider: 08/09/23 20:59 Source: patient and family Mode of arrival: ambulatory Limitations: no limitations History of Present Illness HPI Narrative: this is a 58-year-old female with a history of COPD and CHF presents with increasing shortness of breath over the last couple of days, the patient denies cigarette use but does smell like cigarette smoker so seems like she is exposed to cigarettes. Otherwise no chest pain no abdominal pain no fever chills no nausea vomiting no diarrhea constipation. MD elicited complaint: shortness of breath Pertinent past history: COPD and congestive heart failure Onset (ago): day(s) Timing: constant Severity: moderate Related Data Home Medications Medication Instructions Recorded Confirmed omeprazole magnesium 20 mg 20 mg PO DAILY 04/13/19 08/09/23 tablet,delayed release (Prilosec OTC) atorvastatin 40 mg tablet 60 mg PO DAILY 06/01/21 08/09/23 fluoxetine 40 mg capsule (Prozac) 20 mg PO BID 06/01/21 08/09/23 multivitamin with minerals 1 tablet PO DAILY 12/01/21 08/09/23 lisinopril 40 mg tablet 40 mg PO DAILY 10/31/22 08/09/23 olanzapine 10 mg tablet 10 mg PO HS 11/17/22 08/09/23 tiotropium bromide 1.25 1 inh inhalation DAILY 06/21/23 08/09/23 mcg/actuation mist for inhalation (Spiriva Respimat) Allergies Allergy/AdvReac Type Severity Reaction Status Date / Time No Known Allergies Allergy Unknown Verified 07/24/23 11:53 Review of Systems Review of Systems: All systems reviewed & are unremarkable except as noted in HPI and below PMFSH Past Medical History Medical History Anxiety Asthma Congestive heart failure COPD (chronic obstructive pulmonary disease) Depression Hx MRSA infection Hypertension Insect bite Surgical History Surgical History History of cholecystectomy History of hysterectomy History of incision and drainage Several areas to left forearm History of tubal ligation Family History Family History Father Heart disease Mother , Mother at age 60. Diabetes mellitus Sibling Rheumatoid arthritis Has RA in her hands, sees pulp grinder feeder. Social History Social History Social History: The patient is but lives with her boyfriend now and her daughter and granddaughter. The patient has 2 children. She denies any alcohol or any other illicit drugs. The patient works in the [employer]. And she is a former smoker. She does not have a durable power beamer helper for healthcare. Code status full code Smoking packs per day: 1.5 Smoking cigarettes per day: 30.0 Years smoked: 30 Smoking pack-years: 45.00 Smoking status: Former smoker Tobacco type: cigarettes Second hand tobacco smoke exposure: Yes Alcohol intake: never Substance use: never Substance use type: does not use Lack of Transportation: No Lack of Food: Sometimes True Current Housing: I Have Housing Concerned About Future Housing: No Difficulty Paying Gas/Electric Bills: No Difficulty Paying for Meds: No Currently Unemployed: No Education: High School Diploma/GED Difficulty w/ Childcare or Family Care: No Spiritual care concerns: No Exam Const: General: no acute distress Nutritional Appearance: well nourished and obese Orientation/consciousness: patient oriented x3 Limitations: no limitations HENMT: Head: normal to inspection Neck: Neck: normal visual inspection and no lymphadenopathy Chest: Chest palpation & inspection: normal inspection of the chest Resp: Effort & Inspection: normal respiratory effort Auscultation: diminished lung sounds Cardio: Rate: regular rate Rhythm: regular rhythm G
[2023-08-09 21:58] LABS: Alanine Aminotransferase 34 U/L (14-59); Alkaline Phosphatase 138 U/L (46-116); Anion Gap 10 mmol/L (4-12); Aspartate Amino Transferase 23 U/L (15-37); Bilirubin,Total 0.2 mg/dL (0.00-1.00); Blood Urea Nitrogen 9 mg/dL (7-18); Calcium 8.9 mg/dL (8.5-10.1); Carbon Dioxide 30 mmol/L (21-32); Chloride 103 mmol/L (98-108); Estimated CRCL calculation 101 ml/min; Estimated Glomerular Filt Rate > 60; Glucose 149 mg/dL (70-99); Magnesium 1.8 mg/dL (1.8-2.4); NT Pro B Type Natriuretic Pept 33 pg/mL (0-125); Osmolality Calculated 297 mOsm/kg (285-295); Potassium 3.8 mmol/L (3.5-5.1); Sodium 143 mmol/L (136-145); Total Protein 6.6 g/dL (6.4-8.2)
[2023-08-09 22:01] VITALS: BP 120/70; PULSE 80; RESP 21; O2SAT 89
[2023-08-09 22:15] LABS: SARS-CoV-2 RNA PCR Negative (Negative)
[2023-08-09 22:16] LABS: Influenza A QL RT-PCR Negative (Negative); Influenza B QL RT-PCR Negative (Negative); RSV RNA, RT-PCR Negative (Negative)
[2023-08-09] MEDS: levoFLOXacin 500 MG TABLET PO (22:19)
--- NOTE | 2023-08-16 12:31 | PC.NURSE ---
Final blood culture report: no growth after 5 days, no further action or treatment needed.
== END 2023-08-09 22:29 | disposition home or self-care (01) ==
PROVIDERS: Emergency Provider Emergency Medicine; PCP Nurse Practitioner Family
DX: J44.1 Chronic obstructive pulmonary disease with (acute) exacerbation (principal); I11.0 Hypertensive heart disease with heart failure; I50.9 Heart failure, unspecified; Z87.891 Personal history of nicotine dependence; Z79.899 Other long term (current) drug therapy; Z20.822 Contact with and (suspected) exposure to COVID-19
CPT/HCPCS: 36415; 71045; 80053; 83605; 83735; 83880; 85025; 85610; 85730; 87040; 87637; 93005; 96372; 99283; A9270; J2919

== ENCOUNTER 2023-08-14 17:31 | Emergency (ER) | payer OTHER, SELFPAY ==
--- NOTE | ~2023-08-14 | XR_ITS ---
EXAMINATION: XR chest 2V DATE: 08/14/2023 18:16 INDICATION: Pneumonia. Pleuritic chest pain. TECHNIQUE: Frontal and lateral views of the chest were obtained. COMPARISON: Chest single view 08/09/2023, chest CT 03/04/2023 FINDINGS: There are airspace opacities in right lower lung zone and left mid and lower lung zones. No pleural effusion or pneumothorax. The heart size is normal. There are prominent pericardial fat pads . IMPRESSION: 1. Worsened airspace opacities in right lower lung zone and left mid and lower lung zones, consistent with atelectasis versus pneumonia. Reviewed, dictated and finalized at location E.
[2023-08-14 17:34] VITALS: BP 151/88; PULSE 76; RESP 20; TEMP 36.4; O2SAT 97
[2023-08-14 17:45] VITALS: O2SAT 97
[2023-08-14 17:50] VITALS: PULSE 79
--- NOTE | 2023-08-14 17:50 | ECG_ITS ---
Test Date: 2023-08-14 17:52:56 Measurements Intervals [place] Rate: 71 P: 44 RI: 152 QRS: 18 QRSD: 104 T: 31 QT: 370 QTc: 403 Interpretive Statements SINUS RHYTHM DELAYED PRECORDIAL R/S TRANSITION BASELINE ARTIFACT- I, II, III, AVR, AVL, AVF BORDERLINE ECG Compared to ECG 08/09/2023 21:12:47 No significant changes Electronically Signed On 08-15-2023 07:45:00 CDT by Jeffery Flores D.O.
--- NOTE | 2023-08-14 17:59 | ED.CHESTPAIN ---
HPI - Chest Pain General Chief Complaint: Chest Pain Stated Complaint: LUNG PAIN Time Seen by Provider: 08/14/23 17:49 History of Present Illness HPI narrative: 58-year-old white female with a history of COPD, longstanding smoking history, quit 6 years ago, but still has secondhand exposure, morbid obesity, hypertension, hyperlipidemia, reports of cough beginning around August 05, seen in the emergency department on August 08, and treated for an upper respiratory infection, with 6 days of Levaquin 500 mg daily, 5 days of prednisone, and albuterol meter dose inhaler. She reports that the coughing has continued to be pretty intense, beginning to get a little bit better however she has been coughing so much now she has severe pain in her chest every time she coughs, as well as it hurts to take a deep breath, turn or twist, or change positions. She denies high fever, chills, sinus drainage, sore throat. Denies any constant chest pain, denies any palpitations, near-syncope or syncope. Denies diaphoresis, abdominal pain, nausea vomiting, diarrhea or constipation, dysuria urgency or frequency. She reports she has kept here now because it hurts to cough Related Data Home Medications Medication Instructions Recorded Confirmed omeprazole magnesium 20 mg 20 mg PO DAILY 04/13/19 08/14/23 tablet,delayed release (Prilosec OTC) atorvastatin 40 mg tablet 60 mg PO DAILY 06/01/21 08/14/23 fluoxetine 40 mg capsule (Prozac) 20 mg PO BID 06/01/21 08/14/23 multivitamin with minerals 1 tablet PO DAILY 12/01/21 08/14/23 lisinopril 40 mg tablet 40 mg PO DAILY 10/31/22 08/14/23 olanzapine 10 mg tablet 10 mg PO HS 11/17/22 08/14/23 tiotropium bromide 1.25 1 inh inhalation DAILY 06/21/23 08/14/23 mcg/actuation mist for inhalation (Spiriva Respimat) Allergies Allergy/AdvReac Type Severity Reaction Status Date / Time No Known Allergies Allergy Unknown Verified 08/14/23 17:36 Review of Systems Review of Systems: All systems reviewed & are unremarkable except as noted in HPI and below PMFSH Past Medical History Medical History Anxiety Asthma Congestive heart failure COPD (chronic obstructive pulmonary disease) Depression Hx MRSA infection Hypertension Insect bite Surgical History Surgical History History of cholecystectomy History of hysterectomy History of incision and drainage Several areas to left forearm History of tubal ligation Family History Family History Father Heart disease Mother , Mother at age 60. Diabetes mellitus Sibling Rheumatoid arthritis Has RA in her hands, sees netsuite developer. Social History Social History Social History: The patient is but lives with her boyfriend now and her daughter and granddaughter. The patient has 2 children. She denies any alcohol or any other illicit drugs. The patient works in the [employer] And she is a former smoker. She does not have a durable power television news producer for healthcare. Code status full code Smoking packs per day: 1.5 Smoking cigarettes per day: 30.0 Years smoked: 30 Smoking pack-years: 45.00 Smoking status: Former smoker Tobacco type: cigarettes Second hand tobacco smoke exposure: Yes Alcohol intake: never Substance use: never Substance use type: does not use Lack of Transportation: No Lack of Food: Sometimes True Current Housing: I Have Housing Concerned About Future Housing: No Difficulty Paying Gas/Electric Bills: No Difficulty Paying for Meds: No Currently Unemployed: No Education: High School Diploma/GED Difficulty w/ Childcare or Family Care: No Spiritual care concerns: No Exam Narrative: pleasant, well oriented, morbidly obese, with severe central obesity
[2023-08-14 18:06] LABS: Basophils Absolute Auto 0.01 K/mm3 (0.00-0.10); Basophils Percent Auto 0.1 % (0.0-1.0); Eosinophils Absolute Auto 0.02 K/mm3 (0.02-0.50); Eosinophils Percent Auto 0.2 % (1.0-6.0); Hemoglobin 11.9 g/dL (12.0-15.0); Immature Granulocyte Absolute 0.04 K/mm3 (0.00-0.00); Immature Granulocyte Percent A 0.5 % (0.0-0.0); Lymphocytes Absolute Auto 1.96 K/mm3 (1.10-4.50); Lymphocytes Percent Auto 23.1 % (18.0-42.0); Mean Corpuscular HGB Conc 33.1 g/dL (32-36); Mean Corpuscular Hemoglobin 29.1 pg (27.0-31.0); Mean Platelet Volume 9.6 fl (9.2-11.8); Monocytes Absolute Auto 0.42 K/mm3 (0.10-0.90); Monocytes Percent Auto 4.9 % (2.0-11.0); Neutrophils Absolute Auto 6.05 K/mm3 (1.70-7.20); Neutrophils Percent Auto 71.2 % (50.0-70.0); Platelet Count Result 290 K/mm3 (150-420); Red Blood Count 4.09 M/mm3 (4.20-5.40); Red Cell Distribution Width 13.6 % (11.6-14.4); White Blood Count 8.5 K/mm3 (4.8-10.8)
[2023-08-14 18:19] LABS: D Dimer 0.35 mg/L (0.19-0.50)
[2023-08-14 18:29] LABS: Alanine Aminotransferase 33 U/L (14-59); Alkaline Phosphatase 120 U/L (46-116); Anion Gap 10 mmol/L (4-12); Aspartate Amino Transferase 17 U/L (15-37); Bilirubin,Total 0.2 mg/dL (0.00-1.00); Blood Urea Nitrogen 8 mg/dL (7-18); Carbon Dioxide 28 mmol/L (21-32); Chloride 101 mmol/L (98-108); Estimated CRCL calculation 135 ml/min; Estimated Glomerular Filt Rate > 60; Glucose 128 mg/dL (70-99); NT Pro B Type Natriuretic Pept 39 pg/mL (0-125); Osmolality Calculated 288 mOsm/kg (285-295); Potassium 4.1 mmol/L (3.5-5.1); Sodium 139 mmol/L (136-145); Total Protein 6.8 g/dL (6.4-8.2); Troponin I < 4.0 ng/L (0.00-60.4)
[2023-08-14 18:44] VITALS: BP 132/60; PULSE 77; RESP 18; O2SAT 97
--- NOTE | 2023-08-14 18:53 | PC.NURSE ---
assumed care. report received from Moriah SÁNCHEZ
--- NOTE | 2023-08-14 19:05 | PC.NURSE ---
Patient resting on stretcher with family at her side. Will medicate per MAR
[2023-08-14] MEDS: DOXYCYCLINE HYCLATE 100 MG TABLET PO (19:07)
[2023-08-14] MEDS: methylPREDNISolone SOD SUCC 125 MG VIAL IM (19:08)
[2023-08-14] MEDS: cefTRIAXone 1 GM, LIDOCAINE HCL 1% LOCAL INJ 2.1 ML IM (19:11)
[2023-08-14 19:28] VITALS: BP 136/106; PULSE 72; RESP 18; O2SAT 99
== END 2023-08-14 19:29 | disposition home or self-care (01) ==
PROVIDERS: Emergency Provider Emergency Medicine; PCP Nurse Practitioner Family
DX: J44.1 Chronic obstructive pulmonary disease with (acute) exacerbation (principal); J18.9 Pneumonia, unspecified organism; R07.89 Other chest pain; E78.5 Hyperlipidemia, unspecified; I11.0 Hypertensive heart disease with heart failure; I50.9 Heart failure, unspecified; Z79.899 Other long term (current) drug therapy; Z87.891 Personal history of nicotine dependence
CPT/HCPCS: 36415; 71046; 80053; 83880; 84484; 85025; 85380; 93005; 96372; 99284; A9270; J0696; J2919

== ENCOUNTER 2023-09-27 19:34 | Emergency (ER) | payer OTHER, SELFPAY ==
--- NOTE | ~2023-09-27 | CT_ITS ---
EXAMINATION: CT abdomen pelvis wo con DATE: 09/27/2023 20:06 INDICATION: constipation/abdominal pain TECHNIQUE: Computed tomography (CT) of the abdomen and pelvis was performed without intravenous contr ast. Automated exposure control and iterative reconstruction technique were employed. The dose-length product was 1597.02 mGy-cm. COMPARISON: CT [facility] 06/24/2021. FINDINGS: Lower thorax: Lingular atelectasis. Bibasilar scarring. Liver: Enlarged. Biliary/Gallbladder: Gallbladder is absent. No bile duct dilation. Pancreas: No mass or duct dilation. Spleen: Normal. Adrenals:No mass. Kidneys: No suspicious mass, obstructing stone, or hydronephrosis simple bilateral inferior pole cyst s. GI tract: No small or large bowel dilation. Appendix not visualized. Mesentery/Peritoneum: No ascites, mass, or free air. Retroperitoneum: No mass. Pelvis: Normal urinary bladder. Absent uterus. Ovaries not confidently visualized. Soft Tissues: Small uncomplicated fat-containing umbilical hernia. Bones: No acute osseous finding. IMPRESSION: Hepatomegaly. Otherwise unremarkable CT abdomen and pelvis findings. Reviewed, dictated and finalized at location K.
[2023-09-27 19:37] VITALS: BP 128/80; PULSE 93; RESP 20; TEMP 36.1; O2SAT 95
--- NOTE | 2023-09-27 19:49 | ED.ABDPAIN ---
HPI - Abdominal Pain General Chief Complaint: Abdominal Pain Stated Complaint: constipation Time Seen by Provider: 09/27/23 19:49 Source: patient and family Mode of arrival: ambulatory Limitations: no limitations History of Present Illness HPI narrative: this is a 58-year-old female with a history of diabetes with some abdominal discomfort and constipation for the past 9 days has not tried anything [id number] recently started on metformin there is currently no nausea or vomiting no dysuria no hematuria no fever chills no chest pain or shortness of breath. MD elicited complaint: abdominal pain Pertinent past history: constipation Onset (ago): day(s) Pain Consistency: constant Related Data Home Medications Medication Instructions Recorded Confirmed omeprazole magnesium 20 mg 20 mg PO DAILY 04/13/19 08/14/23 tablet,delayed release (Prilosec OTC) atorvastatin 40 mg tablet 60 mg PO DAILY 06/01/21 08/14/23 fluoxetine 40 mg capsule (Prozac) 20 mg PO BID 06/01/21 08/14/23 multivitamin with minerals 1 tablet PO DAILY 12/01/21 08/14/23 lisinopril 40 mg tablet 40 mg PO DAILY 10/31/22 08/14/23 olanzapine 10 mg tablet 10 mg PO HS 11/17/22 08/14/23 tiotropium bromide 1.25 1 inh inhalation DAILY 06/21/23 08/14/23 mcg/actuation mist for inhalation (Spiriva Respimat) Allergies Allergy/AdvReac Type Severity Reaction Status Date / Time No Known Allergies Allergy Unknown Verified 08/14/23 17:36 Review of Systems Review of Systems: All systems reviewed & are unremarkable except as noted in HPI and below PMFSH Past Medical History Medical History Anxiety Asthma Congestive heart failure COPD (chronic obstructive pulmonary disease) Depression Hx MRSA infection Hypertension Insect bite Surgical History Surgical History History of cholecystectomy History of hysterectomy History of incision and drainage Several areas to left forearm History of tubal ligation Family History Family History Father Heart disease Mother , Mother at age 60. Diabetes mellitus Sibling Rheumatoid arthritis Has RA in her hands, sees strategic analyst. Social History Social History Social History: The patient is but lives with her boyfriend now and her daughter and granddaughter. The patient has 2 children. She denies any alcohol or any other illicit drugs. The patient works in the [employer]. And she is a former smoker. She does not have a durable power contracts attorney for healthcare. Code status full code Smoking packs per day: 1.5 Smoking cigarettes per day: 30.0 Years smoked: 30 Smoking pack-years: 45.00 Smoking status: Former smoker Tobacco type: cigarettes Second hand tobacco smoke exposure: Yes Alcohol intake: never Substance use: never Substance use type: does not use Lack of Transportation: No Lack of Food: Sometimes True Current Housing: I Have Housing Concerned About Future Housing: No Difficulty Paying Gas/Electric Bills: No Difficulty Paying for Meds: No Currently Unemployed: No Education: High School Diploma/GED Difficulty w/ Childcare or Family Care: No Spiritual care concerns: No Exam Const: General: healthy appearing, no acute distress and alert Nutritional Appearance: obese Orientation/consciousness: patient oriented x3 Limitations: no limitations Chest: Chest palpation & inspection: normal inspection of the chest Resp: Effort & Inspection: normal respiratory effort Auscultation: clear to auscultation bilaterally Cardio: Rate: regular rate Rhythm: regular rhythm GI: GI Palp: Yes Soft to palpation and Yes Tenderness to palpation present (GI) Auscultation: normal bowel sounds : General: Yes bladder normal to pa
[2023-09-27] MEDS: ONDANSETRON HCL ODT 4 MG TABLET PO (20:19)
[2023-09-27] MEDS: MAGNESIUM CITRATE 300 ML BTL PO (20:31)
[2023-09-27 20:40] VITALS: BP 133/84; PULSE 85; RESP 20; TEMP 36.6; O2SAT 95
== END 2023-09-27 20:40 | disposition home or self-care (01) ==
PROVIDERS: Emergency Provider Emergency Medicine; PCP Nurse Practitioner Family
DX: K59.00 Constipation, unspecified (principal); R10.84 Generalized abdominal pain; I11.0 Hypertensive heart disease with heart failure; I50.9 Heart failure, unspecified; J44.9 Chronic obstructive pulmonary disease, unspecified; Z87.891 Personal history of nicotine dependence
CPT/HCPCS: 74176; 99284; A9270

== ENCOUNTER 2023-09-28 20:51 | Emergency (ER) | payer OTHER, SELFPAY ==
--- NOTE | ~2023-09-28 | CT_ITS ---
CT abdomen pelvis w con Ordering provider: Tonio Rose MD History: 58 years Female with . abdominal pain / constipation/HAD NEG CT YESTERDAY . Comparison: September 27, 2023 Technique: CT abdomen and pelvis with IV and without oral contrast. Automated exposure control and it erative reconstruction technique were employed. The dose-length product was 1610.05 mGy-cm. Findings: VISUALIZED LOWER CHEST: Atelectatic changes in the right lung base. Hypodensity is seen between the r ight and left atrium which measures 3.4 x 2.1 cm which is suggestive of a lipoma. Further evaluation advised. UPPER ABDOMINAL ORGANS: Liver: Fat infiltration. Hepatomegaly. Gallbladder: Status post cholecystectomy. Spleen: Normal. Stomach/duodenum: Small sliding hiatus hernia. Pancreas: Normal. Adrenals: Normal. Kidneys: 3.2 cm right lower pole cyst. Tiny cyst in the left kidney lower pole. PELVIC ORGANS: The bladder is normal. BOWEL AND MESENTERY: Colon: No evidence of diverticulitis. Fecal material is seen in the colon suggestive of constipation. Appendix is not demonstrated. Small Bowel: Normal. No obstruction. Peritoneum/mesentery: No free air or free fluid. No mesenteric lymphadenopathy. RETROPERITONEUM: Mild atheromatous disease of the abdominal aorta. No retroperitoneal lymphadenopat hy. MUSCULOSKELETAL: Superficial soft tissues: Fat containing umbilical hernia. Otherwise The superficial soft tissues are normal. Bones: Age appropriate degenerative changes of the spine. IMPRESSION: 1. Hepatomegaly with fat infiltration 2. Constipation. 3. Small sliding hiatus hernia. 4. Bilateral renal cysts. 5. 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 Further evaluation advis ed. Reviewed, dictated and finalized at location A. IMPRESSION: 1. Hepatomegaly with fat infiltration 2. Constipation. 3. Small sliding hiatus hernia. 4. Bilateral renal cysts. 5. 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 Fu rther evaluation advised.
[2023-09-28 21:00] VITALS: BP 132/76; PULSE 85; RESP 20; TEMP 36.4; O2SAT 94
--- NOTE | 2023-09-28 21:10 | PC.NURSE ---
ERP performed a rectal exam and noted no stool in lower rectum, POC discussed to have further tests and CT w/ contrast to check for bowel obstruction.
--- NOTE | 2023-09-28 21:15 | ED.ABDPAIN ---
HPI - Abdominal Pain General Chief Complaint: Abdominal Pain Stated Complaint: Constipation Time Seen by Provider: 09/28/23 21:02 Source: patient Mode of arrival: ambulatory Limitations: no limitations History of Present Illness HPI narrative: 58 year old female returns to the Emergency Department complaining of abdominal pain and constipation. Patient was seen here yesterday for same. She had a non-contrast CT of abdomen that was unremarkable. She states she has not had a bowel movement for 11 days. States she has use many over the counter medications, drank 2 bottles of mag citrate. States vomited once several days ago. MD elicited complaint: abdominal pain Pertinent past history: constipation Onset (ago): day(s) (11) Pain Consistency: constant Location: diffuse Exacerbating factors: nothing Relieving factors: nothing Treatments prior to arrival: other (multiple OTC laxatives, stool preps, mag citrate) Related Data Patient : No Home Medications Medication Instructions Recorded Confirmed omeprazole magnesium 20 mg 20 mg PO DAILY 04/13/19 09/28/23 tablet,delayed release (Prilosec OTC) atorvastatin 40 mg tablet 60 mg PO DAILY 06/01/21 09/28/23 fluoxetine 40 mg capsule (Prozac) 20 mg PO BID 06/01/21 09/28/23 multivitamin with minerals 1 tablet PO DAILY 12/01/21 09/28/23 lisinopril 40 mg tablet 40 mg PO DAILY 10/31/22 09/28/23 olanzapine 10 mg tablet 10 mg PO HS 11/17/22 09/28/23 metformin 500 mg tablet,extended 500 mg PO BID 09/28/23 09/28/23 release 24 hr topiramate 50 mg tablet 50 mg PO DAILY 09/28/23 09/28/23 Allergies Allergy/AdvReac Type Severity Reaction Status Date / Time No Known Allergies Allergy Unknown Verified 08/14/23 17:36 Review of Systems Review of Systems: All systems reviewed & are unremarkable except as noted in HPI and below Constitutional: Constitutional: Reports as per HPI Eyes: Eyes: Reports as per HPI ENT: Reports system reviewed and no additional complaints, except as documented Cardiovascular: Cardiovascular: Reports as per HPI Respiratory: Respiratory: Reports as per HPI Gastrointestinal: Gastrointestinal: Reports as per HPI, Reports abdominal pain and Reports constipation Genitourinary: Genitourinary: Reports no additional female genitourinary complaints Musculoskeletal: Musculoskeletal: Reports no additional musculoskeletal complaints Integumentary/Breasts: Skin/Breast: Reports system reviewed and no additional complaints, except as docu Neurologic: Reports system reviewed and no additional complaints, except as documented Psychiatric: Psychiatric: Reports no additional psychiatric complaints Endocrine: Endocrine: Reports no additional endocrine complaints Hematologic/Lymphatic: Hematologic/Lymphatic: Reports no additional hematologic/lymphatic complaints PMFSH Past Medical History Medical History Anxiety Asthma Congestive heart failure COPD (chronic obstructive pulmonary disease) Depression Hx MRSA infection Hypertension Insect bite Surgical History Surgical History History of cholecystectomy History of hysterectomy History of incision and drainage Several areas to left forearm History of tubal ligation Family History Family History Father Heart disease Mother , Mother at age 60. Diabetes mellitus Sibling Rheumatoid arthritis Has RA in her hands, sees coffee roaster helper. Social History Social History Social History: The patient is but lives with her boyfriend now and her daughter and granddaughter. The patient has 2 children. She denies any alcohol or any other illicit drugs. The patient works in the [employer]. And she is a former smoker. She does not have a durable power criminal attorney for [employer]
[2023-09-28 21:22] LABS: Basophils Absolute Auto 0.03 K/mm3 (0.00-0.10); Basophils Percent Auto 0.4 % (0.0-1.0); Eosinophils Absolute Auto 0.26 K/mm3 (0.02-0.50); Eosinophils Percent Auto 3.7 % (1.0-6.0); Hematocrit 37.4 % (35.0-49.0); Hemoglobin 12.1 g/dL (12.0-15.0); Immature Granulocyte Absolute 0.02 K/mm3 (0.00-0.00); Immature Granulocyte Percent A 0.3 % (0.0-0.0); Lymphocytes Absolute Auto 2.52 K/mm3 (1.10-4.50); Lymphocytes Percent Auto 35.6 % (18.0-42.0); Mean Corpuscular HGB Conc 32.4 g/dL (32-36); Mean Corpuscular Hemoglobin 28.9 pg (27.0-31.0); Mean Corpuscular Volume 89.5 fL (78.0-102.0); Mean Platelet Volume 10.3 fl (9.2-11.8); Monocytes Absolute Auto 0.54 K/mm3 (0.10-0.90); Monocytes Percent Auto 7.6 % (2.0-11.0); Neutrophils Percent Auto 52.4 % (50.0-70.0); Platelet Count Result 305 K/mm3 (150-420); Red Blood Count 4.18 M/mm3 (4.20-5.40); Red Cell Distribution Width 13.7 % (11.6-14.4); White Blood Count 7.1 K/mm3 (4.8-10.8)
[2023-09-28 21:37] LABS: Alanine Aminotransferase 29 U/L (14-59); Albumin Level 3.2 g/dL (3.4-5.0); Alkaline Phosphatase 150 U/L (46-116); Amylase 31 U/L (25-115); Anion Gap 6 mmol/L (4-12); Aspartate Amino Transferase 18 U/L (15-37); Bilirubin,Total 0.2 mg/dL (0.00-1.00); Blood Urea Nitrogen 8 mg/dL (7-18); Calcium 8.8 mg/dL (8.5-10.1); Carbon Dioxide 29 mmol/L (21-32); Chloride 103 mmol/L (98-108); Estimated CRCL calculation 127 ml/min; Estimated Glomerular Filt Rate > 60; Glucose 117 mg/dL (70-99); Lipase 30 U/L (16-77); Osmolality Calculated 285 mOsm/kg (285-295); Potassium 4.2 mmol/L (3.5-5.1); Sodium 138 mmol/L (136-145); Total Protein 6.6 g/dL (6.4-8.2)
[2023-09-28 21:40] LABS: Lactic Acid Reflex 1.1 mmol/L (0.4-2.0)
[2023-09-28 22:18] LABS: Add Urine Microscopic? YES; Appearance Urine Clear (Clear); Bilirubin Urine Negative (Negative); Blood Urine Negative (Negative); Color Urine Light Yellow (Yellow); Glucose Urine UA Negative (Negative); Ketones Urine Negative (Negative); Leukocyte Esterase Ur 1+ (Negative); Nitrate Urine Negative (Negative); Protein Urine Negative (Negative); Urobilinogen Urine 0.2 mg/dL (0.2-1.0); pH Urine 7.5 (5.0-8.0)
[2023-09-28 22:20] LABS: RBC Urine None seen /hpf (0-2)
[2023-09-28 22:21] LABS: Bacteria Urine Trace /hpf; Squamous Epithelial Cell Urine Few /hpf (Few); WBC Urine 0-3 /hpf (0-3)
[2023-09-28 23:50] VITALS: BP 136/78; PULSE 88; RESP 18; TEMP 36.6; O2SAT 94
== END 2023-09-28 23:50 | disposition home or self-care (01) ==
PROVIDERS: Emergency Provider Emergency Medicine; PCP Nurse Practitioner Family
DX: K59.00 Constipation, unspecified (principal); I11.0 Hypertensive heart disease with heart failure; I50.9 Heart failure, unspecified; Z79.899 Other long term (current) drug therapy; Z87.891 Personal history of nicotine dependence
CPT/HCPCS: 36415; 74177; 80053; 81001; 82150; 83605; 83690; 85025; 99284; Q9967

== ENCOUNTER 2023-11-13 19:30 | Emergency (ER) | payer OTHER, SELFPAY ==
--- NOTE | ~2023-11-13 | XR_ITS ---
XR hand LT min 3V Ordering provider: Tonio Rose MD History: . pain . Comparison: None. FINDINGS: BONES: No acute fracture or dislocation. JOINT SPACES: Mild osteoarthritic changes of the first carpometacarpal joint. SOFT TISSUES: Unremarkable. IMPRESSION: No acute osseous abnormality left hand. Reviewed, dictated and finalized at location A.
[2023-11-13 19:30] VITALS: BP 114/81; PULSE 79; RESP 18; TEMP 36.2; O2SAT 100
--- NOTE | 2023-11-13 19:35 | ED.EXTPRO ---
HPI - Extremity Problem General Chief complaint: Extremity Problem,Nontraumatic Stated complaint: L hand Injury Time Seen by Provider: 11/13/23 19:32 Source: patient Mode of arrival: ambulatory Limitations: no limitations History of Present Illness HPI Narrative: 58 year old female presents to the Emergency Department complaining of left hand [palm] pain. Onset 4 days ago. Denies any trauma. Has tiny bluish discoloration and feel lump at site. States making her fingers tingle. MD Complaint: extremity pain (left palm) Onset (ago): day(s) (4) Location: left Quality: sharp Radiation: none Relieving factors: nothing Exacerbating factors: palpation Associated symptoms: denies other symptoms Related Data Home Medications Medication Instructions Recorded Confirmed omeprazole magnesium 20 mg 20 mg PO DAILY 04/13/19 09/28/23 tablet,delayed release (Prilosec OTC) atorvastatin 40 mg tablet 60 mg PO DAILY 06/01/21 09/28/23 fluoxetine 40 mg capsule (Prozac) 20 mg PO BID 06/01/21 09/28/23 multivitamin with minerals 1 tablet PO DAILY 12/01/21 09/28/23 lisinopril 40 mg tablet 40 mg PO DAILY 10/31/22 09/28/23 olanzapine 10 mg tablet 10 mg PO HS 11/17/22 09/28/23 metformin 500 mg tablet,extended 500 mg PO BID 09/28/23 09/28/23 release 24 hr topiramate 50 mg tablet 50 mg PO DAILY 09/28/23 09/28/23 Allergies Allergy/AdvReac Type Severity Reaction Status Date / Time No Known Allergies Allergy Unknown Verified 11/13/23 19:35 Review of Systems Review of Systems: All systems reviewed & are unremarkable except as noted in HPI and below Constitutional: Constitutional: Reports as per HPI, Denies chills and Denies fever(s) Eyes: Eyes: Reports as per HPI ENT: Reports system reviewed and no additional complaints, except as documented Cardiovascular: Cardiovascular: Reports as per HPI and Denies chest pain Respiratory: Respiratory: Reports as per HPI and Denies dyspnea Gastrointestinal: Gastrointestinal: Reports as per HPI, Denies diarrhea, Denies nausea and Denies vomiting Genitourinary: Genitourinary: Reports no additional female genitourinary complaints Musculoskeletal: Musculoskeletal: Reports no additional musculoskeletal complaints, Denies arthralgias and Denies joint swelling Integumentary/Breasts: Skin/Breast: Reports system reviewed and no additional complaints, except as docu Neurologic: Reports system reviewed and no additional complaints, except as documented PMFSH Past Medical History Medical History Anxiety Asthma Congestive heart failure COPD (chronic obstructive pulmonary disease) Depression Hx MRSA infection Hypertension Insect bite Surgical History Surgical History History of cholecystectomy History of hysterectomy History of incision and drainage Several areas to left forearm History of tubal ligation Family History Family History Father Heart disease Mother , Mother at age 60. Diabetes mellitus Sibling Rheumatoid arthritis Has RA in her hands, sees service center appraiser. Social History Social History Social History: The patient is but lives with her boyfriend now and her daughter and granddaughter. The patient has 2 children. She denies any alcohol or any other illicit drugs. The patient works in the [employer] And she is a former smoker. She does not have a durable power tax associate attorney for healthcare. Code status full code Smoking packs per day: 1.5 Smoking cigarettes per day: 30.0 Years smoked: 30 Smoking pack-years: 45.00 Smoking status: Former smoker Tobacco type: cigarettes Second hand tobacco smoke exposure: Yes Alcohol intake: never Substance use: never Substance use type: does not use Lack of Transportation: No [place]
[2023-11-13] MEDS: traMADol HCL (*CRX) 50 MG TABLET PO (21:35)
== END 2023-11-13 21:42 | disposition home or self-care (01) ==
PROVIDERS: Emergency Provider Emergency Medicine; PCP Physician Assistant
DX: M79.642 Pain in left hand (principal); I11.0 Hypertensive heart disease with heart failure; I50.9 Heart failure, unspecified; J44.9 Chronic obstructive pulmonary disease, unspecified; Z87.891 Personal history of nicotine dependence
CPT/HCPCS: 73130; 99283; A9270

== ENCOUNTER 2023-12-07 10:55 | Emergency (ER) | payer OTHER, SELFPAY ==
[2023-12-07 10:55] VITALS: BP 118/86; PULSE 87; RESP 18; TEMP 36.9; O2SAT 97
--- NOTE | 2023-12-07 11:09 | ED.SKABFB ---
HPI - Skin/Abscess/Foreign Bdy General Chief complaint: Skin/Abscess/Foreign Body Stated complaint: Toe Injury Time Seen by Provider: 12/07/23 11:05 Source: patient and family Mode of arrival: ambulatory Limitations: no limitations History of Present Illness HPI narrative: Patient is a 58-year-old female with a right great toe foreign body/splinter on the plantar surface. She has wood floors at home and stepped on a splinter and got into the toe. She is due for a tetanus shot at this time too. This happened prior to arrival. MD complaint: foreign body ( Wood splinter) Onset (ago): hour(s) (1) Tetanus up to date: no Location: RLE ( great toe) Severity: moderate Severity scale (1-10): 4 Quality: sharp Pain Consistency: constant Relieving factors: none Exacerbating factors: palpation Context: other ( patient stepped on the hardwood floors and got a splinter into the great toe on the right plantar surface) Associated symptoms: denies other symptoms Treatments prior to arrival: none Related Data Home Medications Medication Instructions Recorded Confirmed omeprazole magnesium 20 mg 20 mg PO DAILY 04/13/19 09/28/23 tablet,delayed release (Prilosec OTC) atorvastatin 40 mg tablet 60 mg PO DAILY 06/01/21 09/28/23 fluoxetine 40 mg capsule (Prozac) 20 mg PO BID 06/01/21 09/28/23 multivitamin with minerals 1 tablet PO DAILY 12/01/21 09/28/23 lisinopril 40 mg tablet 40 mg PO DAILY 10/31/22 09/28/23 olanzapine 10 mg tablet 10 mg PO HS 11/17/22 09/28/23 metformin 500 mg tablet,extended 500 mg PO BID 09/28/23 09/28/23 release 24 hr topiramate 50 mg tablet 50 mg PO DAILY 09/28/23 09/28/23 Allergies Allergy/AdvReac Type Severity Reaction Status Date / Time No Known Allergies Allergy Unknown Verified 11/13/23 19:35 Review of Systems Review of Systems: All systems reviewed & are unremarkable except as noted in HPI and below Constitutional: Constitutional: Reports no additional constitutional complaints Eyes: Eyes: Reports no additional eye complaints ENT: Reports system reviewed and no additional complaints, except as documented Cardiovascular: Cardiovascular: Reports no additional cardiovascular complaints Respiratory: Respiratory: Reports no additional respiratory complaints Gastrointestinal: Gastrointestinal: Reports no additional gastrointestinal complaints Genitourinary: Genitourinary: Reports no additional female genitourinary complaints Musculoskeletal: Musculoskeletal: Reports no additional musculoskeletal complaints Integumentary/Breasts: Skin/Breast: Reports system reviewed and no additional complaints, except as docu Neurologic: Reports system reviewed and no additional complaints, except as documented Psychiatric: Psychiatric: Reports no additional psychiatric complaints Endocrine: Endocrine: Reports no additional endocrine complaints Hematologic/Lymphatic: Hematologic/Lymphatic: Reports no additional hematologic/lymphatic complaints Allergic/Immunologic: Allergic/Immunologic: Reports no additional allergic/immunologic complaints PMFSH Past Medical History Medical History Anxiety Asthma Congestive heart failure COPD (chronic obstructive pulmonary disease) Depression Hx MRSA infection Hypertension Insect bite Surgical History Surgical History History of cholecystectomy History of hysterectomy History of incision and drainage Several areas to left forearm History of tubal ligation Family History Family History Father Heart disease Mother , Mother at age 60. Diabetes mellitus Sibling Rheumatoid arthritis Has RA in her hands, sees oncology registrar. Social History Social History Social History: The patient is but lives with her boyfriend now and her daughter and granddaughter. The patient has 2 children. She denies any alcohol or any other illicit drugs. The patient works in the [employer]. And she is a former smoker. She does not have a durable power managing attorney for healthcare. Code status full code Smoking packs per day: 1.5 Smoking cigarettes per day: 30.0 Years smoked: 30 Smoking pack-years: 45.00 Smoking status: Former smoker Tobacco type: cigarettes Second hand tobacco smoke exposure: Yes Alcohol intake: never Substance use: never Substance use type: does not use Lack of Transportation: No Lack of Food: Sometimes True Current Housing: I Have Housing Concerned About Future Housing: No Difficulty Paying Gas/Electric Bills: No Difficulty Paying for Meds: No Currently Unemployed: No Education: High School Diploma/GED Difficulty w/ Childcare or Family Care: No Spiritual care concerns: No Exam Const: General: healthy appearing and no acute distress Nutritional Appearance: well nourished Orientation/consciousness: patient oriented x3 HENMT: Head: normal to inspection Ears: external ears normal Face/Nose/Sinus: Normal external nose present Eyes: Conjunctivae: conjunctivae normal Pupils: Equal, round and reactive pupils present EOM: EOMs intact bilaterally Neck: Neck: normal visual inspection Chest: Chest palpation & inspection: normal inspection of the chest Resp: Effort & Inspection: normal respiratory effort and not labored Auscultation: clear to auscultation bilaterally and no crackles Cardio: Rate: regular rate Rhythm: regular rhythm Heart sounds: no murmurs GI: Inspection: non-distended GI Palp: Yes Soft to palpation and No Tenderness to palpation present (GI) Auscultation: normal bowel sounds : General: Yes bladder normal to palpation Back/Spine/Pelvis: Back: no CVA tenderness Skin: General skin exam: normal color Rashes: no rashes Wounds: wound noted and wounds noted Other: patient has a right great toe plantar surface 1 cm would foreign body splinter into the superficial skin but imbedded at this time; the wood is soft Neuro: General: patient oriented x3 Cranial nerves: Yes Nystagmus not present Speech: normal speech Extrem: General: normal to inspection Psych: Mental Status: mental status grossly normal Affect: normal affect Attitude: cooperative Course Vital Signs Vital signs: Vital Signs Temperature 36.9 C 12/07/23 10:55 Pulse Rate 87 12/07/23 10:55 Respiratory Rate 18 12/07/23 10:55 Blood Pressure 118/86 12/07/23 10:55 Pulse Oximetry 97 12/07/23 10:55 Oxygen Delivery Room Air 12/07/23 10:55 Temperature 36.9 C 12/07/23 10:55 Pulse Rate 87 12/07/23 10:55 Respiratory Rate 18 12/07/23 10:55 Blood Pressure 118/86 12/07/23 10:55 Pulse Oximetry 97 12/07/23 10:55 Oxygen Delivery Room Air 12/07/23 10:55 Procedures Other Procedure Procedure 1: Other Procedure: Foreign body removal/splinter of the right great toe plantar surface: Iodine used for cleaning of surface, scalpel blade used for superficial remover of epidermis, splinter forceps used to remove splinter, it came in 2 parts but all was removed, area was cleaned again and bandage placed MDM - Skin/Abscess/Foreign Bdy MDM Narrative Medical decision making narrative: patient is a 58-year-old female with a splinter to the right great toe. We have removed the splinter in total. She will get a tetanus shot. She will get antibiotics. Discharge Plan Discharge Clinical Impression: Splinter of toe Qualifiers: Encounter type: initial encounter Laterality: right Qualified Code(s): S90.454A - Superficial foreign body, right lesser toe(s), initial encounter Patient Disposition: Home, Self-Care Condition: Stable Instructions: Antibiotic Form, Puncture Wound (ED) Additional Instructions: Please follow-up with primary doctor in the next week. Started antibiotics in the next 24 hours if there is any sign of infection to include fever, pus and or redness of the area to include pain. you may use topical Neosporin on the area as well twice a day. Keep area clean with soap and water. Prescriptions: New cephalexin 500 mg capsule 500 mg PO BID 7 Days Qty: 14 0RF No Action omeprazole magnesium [Prilosec OTC] 20 mg Tablet,Delayed Release (Dr/Ec) 20 mg PO DAILY lisinopril 40 mg tablet 40 mg PO DAILY olanzapine 10 mg tablet 10 mg PO HS tramadol 50 mg tablet 50 mg PO Q6H PRN (Reason: pain) Qty: 15 0RF fluoxetine [Prozac] 40 mg capsule 20 mg PO BID atorvastatin 40 mg tablet 60 mg PO DAILY magnesium citrate [OneLAX Magnesium Citrate] Solution 150 ml PO BID PRN (Reason: constipation) 1 Days Qty: 296 0RF docusate sodium [Colace] 100 mg capsule 100 mg PO BID Qty: 7 0RF metformin 500 mg tablet extended release 24 hr 500 mg PO BID topiramate 50 mg tablet 50 mg PO DAILY multivitamin with minerals Tablet 1 tablet PO DAILY alprazolam 1 mg tablet 1 mg PO DAILY PRN (Reason: Anxiety) Qty: 1 0RF albuterol sulfate 90 mcg/actuation HFA aerosol inhaler 2 puff INHALATION Q4H PRN (Reason: Wheezing) Qty: 1 0RF Follow-up/Referrals: UNKNOWN,DOCTOR [Primary Care Provider] - Time of Disposition: 11:08
[2023-12-07] MEDS: TETANUS,DIPHTHERIA,AC PERTUSSIS ADULT 0.5 ML (ADACEL) IM (11:14)
== END 2023-12-07 11:16 | disposition home or self-care (01) ==
LOC: CHSED 11:11
PROVIDERS: Emergency Provider Emergency Medicine; PCP Nurse Practitioner Family
DX: S90.454A Superficial foreign body, right lesser toe(s), initial encounter (principal); I11.0 Hypertensive heart disease with heart failure; I50.9 Heart failure, unspecified; J44.9 Chronic obstructive pulmonary disease, unspecified; Z23 Encounter for immunization; W45.8XXA Other foreign body or object entering through skin, initial encounter
CPT/HCPCS: 28190; 90471; 90715; 99283

== ENCOUNTER 2023-12-31 17:18 | Emergency (ER) | payer OTHER, SELFPAY ==
[2023-12-31] VITALS (13 sets, daily range): BP systolic 96–140; BP diastolic 55–87; PULSE 76–100; RESP 16–48; TEMP 35.9; O2SAT 93–96
--- NOTE | ~2023-12-31 | CT_ITS ---
EXAMINATION: CT brain wo con DATE: 12/31/2023 17:54 INDICATION: dizziness . TECHNIQUE: Computed tomography (CT) of the head was performed without intravenous contrast. The mA wa s adjusted according to patient size. Iterative reconstruction technique was employed. The dose-lengt h product was 529.67 mGy-cm. COMPARISON: 03/04/2023. FINDINGS: No acute intracranial hemorrhage or extra-axial fluid collection. No hydrocephalus, mass, or herniation. No acute ischemic infarct. Unremarkable dural venous sinus attenuation. No acute osseous abnormality. The aerated spaces are clear. IMPRESSION: No acute intracranial process. Reviewed, dictated and finalized at location K. ER TANK TENDER HELPER HEAD
--- NOTE | ~2023-12-31 | XR_ITS ---
EXAMINATION: XR chest 1V portable Exam Date/Time: 12/31/2023 17:34 GROUP DIRECTOR HISTORY: dizziness Comparison: 08/14/2023. RESULT: Lines, tubes, and devices: None. Lungs and pleura: Minimal streaky bibasilar atelectasis/scar, otherwise clear. Cardiomediastinal silhouette: Stable. Other: No acute osseous or upper abdominal finding. IMPRESSION: No acute cardiopulmonary process. Reviewed, dictated and finalized at location K. P DIRECTOR
--- NOTE | 2023-12-31 17:27 | ED_ITS ---
HPI - Dizziness General Chief Complaint: Dizziness Stated Complaint: HEADACHE Time Seen by Provider: 12/31/23 17:25 History of Present Illness HPI Narrative: Error - duplicate Related Data Home Medications Medication Instructions Recorded Confirmed omeprazole magnesium 20 mg 20 mg PO DAILY 04/13/19 12/31/23 tablet,delayed release (Prilosec OTC) atorvastatin 40 mg tablet 60 mg PO DAILY 06/01/21 12/31/23 fluoxetine 40 mg capsule (Prozac) 20 mg PO BID 06/01/21 12/31/23 multivitamin with minerals 1 tablet PO DAILY 12/01/21 12/31/23 lisinopril 40 mg tablet 40 mg PO DAILY 10/31/22 12/31/23 olanzapine 10 mg tablet 10 mg PO HS 11/17/22 12/31/23 metformin 500 mg tablet,extended 500 mg PO BID 09/28/23 12/31/23 release 24 hr topiramate 50 mg tablet 50 mg PO DAILY 09/28/23 12/31/23 Allergies Allergy/AdvReac Type Severity Reaction Status Date / Time No Known Allergies Allergy Unknown Verified 12/31/23 17:25 [facility] Past Medical History Medical History Anxiety Asthma Congestive heart failure COPD (chronic obstructive pulmonary disease) Depression Hx MRSA infection Hypertension Insect bite Surgical History Surgical History History of cholecystectomy History of hysterectomy History of incision and drainage Several areas to left forearm History of tubal ligation Family History Family History Father Heart disease Mother , Mother at age 60. Diabetes mellitus Sibling Rheumatoid arthritis Has RA in her hands, sees veterinary radiologist. Social History Social History Social History: The patient is but lives with her boyfriend now and her daughter and granddaughter. The patient has 2 children. She denies any alcohol or any other illicit drugs. The patient works in the [employer]. And she is a former smoker. She does not have a durable power estate planning attorney for healthcare. Code status full code Smoking packs per day: 1.5 Smoking cigarettes per day: 30.0 Years smoked: 30 Smoking pack-years: 45.00 Smoking status: Former smoker Tobacco type: cigarettes Second hand tobacco smoke exposure: Yes Alcohol intake: never Substance use: never Substance use type: does not use Lack of Transportation: No Lack of Food: Sometimes True Current Housing: I Have Housing Concerned About Future Housing: No Difficulty Paying Gas/Electric Bills: No Difficulty Paying for Meds: No Currently Unemployed: No Education: High School Diploma/GED Difficulty w/ Childcare or Family Care: No Spiritual care concerns: No Course Vital Signs Vital signs: Vital Signs Temperature 35.9 C L 12/31/23 17:18 Pulse Rate 88 12/31/23 17:18 Respiratory Rate 20 12/31/23 17:18 Blood Pressure 140/78 12/31/23 17:18 Pulse Oximetry 95 12/31/23 17:18 Oxygen Delivery Room Air 12/31/23 17:18 Temperature 35.9 C L 12/31/23 17:29 Pulse Rate 77 12/31/23 19:16 Respiratory Rate 20 12/31/23 19:16 Blood Pressure 115/61 12/31/23 19:16 Pulse Oximetry 96 12/31/23 19:16 Oxygen Delivery Room Air 12/31/23 17:29 MDM - Dizziness Lab Data 12/31/23 17:44 12/31/23 17:44 Labs: Lab Results 12/31/23 12/31/23 12/31/23 Range/Units 17:44 17:45 18:06 WBC 7.9 (4.8-10.8) K/mm3 RBC 4.57 (4.20-5.40) M/mm3 Hgb 12.8 (12.0-15.0) g/dL Hct 38.8 (35.0-49.0) % MCV 84.9 (78.0-102.0) fL MCH 28.0 (27.0-31.0) pg MCHC 33.0 (32-36) g/dL RDW 13.7 (11.6-14.4) % Plt Count 275 (150-420) K/mm3 MPV 10.1 (9.2-11.8) fl Immature Gran % (Auto) 0.1 H (0.0-0.0) % Neut % (Auto) 56.8 (50.0-70.0) % Lymph % (Auto) 33.5 (18.0-42.0) % Russell % (Auto) 5.9 (2.0-11.0) % Eos % (Auto) 3.4 (1.0-6.0) % Baso % (Auto) 0.3 (0.0-1.0) % Lymph # (Auto) 2.65 (1.10-4.50) K/mm3 Russell # (Auto) 0.47 (0.10-0.90) K/mm3 Eos # (Auto) 0.27 (0.02-0.50) K/mm3 Baso # (Auto) 0.02 (0.00-0.10) K/mm3 Abs Immat Gran (auto) 0.01 H (0.00-0.00) K/mm3 Absolute Neuts (auto) 4.48 (1.70-7.20) K/mm3 Absolute Nucleated RBC 0.00 (0.00-0.00) K/mm3 Nucleated RBC % 0.0 (0-0.0) % Sodium 139 (136-145) mmol/L Potassium 3.3 L (3.5-5.1) mmol/L Chloride 104 (98-108) mmol/L Carbon Dioxide 23 (21-32) mmol/L Anion Gap 12 (4-12) mmol/L BUN 9 (7-18) mg/dL Creatinine 0.76 (0.55-1.02) mg/dL Estim Creat Clear Calc 97 ml/min Estimated GFR > 60 (59 - ) Glucose 123 H (70-99) mg/dL Calculated Osmolality 287 (285-295) mOsm/kg Lactic Acid 1.5 (0.4-2.0) mmol/L Calcium 9.0 (8.5-10.1) mg/dL Magnesium 1.4 L (1.8-2.4) mg/dL Total Bilirubin 0.3 (0.00-1.00) mg/dL AST 15 (15-37) U/L ALT 21 (14-59) U/L Alkaline Phosphatase 148 H (46-116) U/L Troponin I < 4.0 (0.00-60.4) ng/L Total Protein 6.7 (6.4-8.2) g/dL Albumin 3.2 L (3.4-5.0) g/dL Urine Color (Yellow) Urine Appearance (Clear) Urine pH (5.0-8.0) Ur Specific [place] (1.010-1.020) Urine Protein (Negative) Urine Glucose (UA) (Negative) Urine Ketones (Negative) Ur Blood (Man) (Negative) Urine Nitrate (Negative) Urine Bilirubin (Negative) Urine Urobilinogen (0.2-1.0) mg/dL Ur Leukocyte Esterase (Negative) Urine RBC (0-2) /hpf Urine WBC (0-3) /hpf Ur Squamous Epith Cells (Few) /hpf Urine Bacteria (None) /hpf Urine Opiates Screen Negative (Negative) Urine Methadone Screen Negative (Negative) Ur Barbiturates Screen Negative (Negative) Ur Phencyclidine Scrn Negative (Negative) Ur Amphetamine Screen Negative (Negative) U Benzodiazepines Scrn Positive A (Negative) Urine Cocaine Screen Negative (Negative) U Cannabinoids Screen Negative (Negative) 12/31/23 Range/Units 18:07 WBC (4.8-10.8) K/mm3 RBC (4.20-5.40) M/mm3 Hgb (12.0-15.0) g/dL Hct (35.0-49.0) % MCV (78.0-102.0) fL MCH (27.0-31.0) pg MCHC (32-36) g/dL RDW (11.6-14.4) % Plt Count (150-420) K/mm3 MPV (9.2-11.8) fl Immature Gran % (Auto) (0.0-0.0) % Neut % (Auto) (50.0-70.0) % Lymph % (Auto) (18.0-42.0) % Russell % (Auto) (2.0-11.0) % Eos % (Auto) (1.0-6.0) % Baso % (Auto) (0.0-1.0) % Lymph # (Auto) (1.10-4.50) K/mm3 Russell # (Auto) (0.10-0.90) K/mm3 Eos # (Auto) (0.02-0.50) K/mm3 Baso # (Auto) (0.00-0.10) K/mm3 Abs Immat Gran (auto) (0.00-0.00) K/mm3 Absolute Neuts (auto) (1.70-7.20) K/mm3 Absolute Nucleated RBC (0.00-0.00) K/mm3 Nucleated RBC % (0-0.0) % Sodium (136-145) mmol/L Potassium (3.5-5.1) mmol/L Chloride (98-108) mmol/L Carbon Dioxide (21-32) mmol/L Anion Gap (4-12) mmol/L BUN (7-18) mg/dL Creatinine (0.55-1.02) mg/dL Estim Creat Clear Calc ml/min Estimated GFR (59 - ) Glucose (70-99) mg/dL Calculated Osmolality (285-295) mOsm/kg Lactic Acid (0.4-2.0) mmol/L Calcium (8.5-10.1) mg/dL Magnesium (1.8-2.4) mg/dL Total Bilirubin (0.00-1.00) mg/dL AST (15-37) U/L ALT (14-59) U/L Alkaline Phosphatase (46-116) U/L Troponin I (0.00-60.4) ng/L Total Protein (6.4-8.2) g/dL Albumin (3.4-5.0) g/dL Urine Color Light yellow (Yellow) Urine Appearance Clear (Clear) Urine pH 5.5 (5.0-8.0) Ur Specific [place] 1.020 (1.010-1.020) Urine Protein Negative (Negative) Urine Glucose (UA) Negative (Negative) Urine Ketones Trace H (Negative) Ur Blood (Man) Negative (Negative) Urine Nitrate Negative (Negative) Urine Bilirubin Negative (Negative) Urine Urobilinogen 0.2 (0.2-1.0) mg/dL Ur Leukocyte Esterase 2+ H (Negative) Urine RBC 0-2 (0-2) /hpf Urine WBC 31-50 H (0-3) /hpf Ur Squamous Epith Cells Many H (Few) /hpf Urine Bacteria 3+ H (None) /hpf Urine Opiates Screen (Negative) Urine Methadone Screen (Negative) Ur Barbiturates Screen (Negative) Ur Phencyclidine Scrn (Negative) Ur Amphetamine Screen (Negative) U Benzodiazepines Scrn (Negative) Urine Cocaine Screen (Negative) U Cannabinoids Screen (Negative) Discharge Plan Discharge Clinical Impression: Orthostatic hypotension, Dehydration, UTI (urinary tract infection), Hypomagnesemia Patient Disposition: Home, Self-Care Condition: Stable Instructions: Antibiotic Form, Dehydration (ED), Urinary Tract Infection in Women (ED), Hypotension (ED), Hypomagnesemia (ED) Additional Instructions: Push fluids Take medications as prescribed Follow up Primary Care Physician Return as needed Patient Language: Armenian Prescriptions: New nitrofurantoin monohyd/m-cryst [Macrobid] 100 mg capsule 100 mg PO Q12H 7 Days Qty: 14 0RF Rx Instructions: must administer with a meal/food magnesium oxide 400 mg magnesium tablet 400 mg PO DAILY Qty: 10 0RF No Action omeprazole magnesium [Prilosec OTC] 20 mg Tablet,Delayed Release (Dr/Ec) 20 mg PO DAILY lisinopril 40 mg tablet 40 mg PO DAILY olanzapine 10 mg tablet 10 mg PO HS tramadol 50 mg tablet 50 mg PO Q6H PRN (Reason: pain) Qty: 15 0RF fluoxetine [Prozac] 40 mg capsule 20 mg PO BID atorvastatin 40 mg tablet 60 mg PO DAILY metformin 500 mg tablet extended release 24 hr 500 mg PO BID topiramate 50 mg tablet 50 mg PO DAILY multivitamin with minerals Tablet 1 tablet PO DAILY alprazolam 1 mg tablet 1 mg PO DAILY PRN (Reason: Anxiety) Qty: 1 0RF albuterol sulfate 90 mcg/actuation HFA aerosol inhaler 2 puff INHALATION Q4H PRN (Reason: Wheezing) Qty: 1 0RF Follow-up/Referrals: Mark,ADDIE Bustos [Primary Care Provider] - Time of Disposition: 19:24
--- NOTE | 2023-12-31 17:30 | ECG_ITS ---
Test Date: 2023-12-31 18:10:25 Measurements Intervals [place] Rate: 78 P: 52 NH: 129 QRS: 38 QRSD: 120 T: 64 QT: 405 QTc: 463 Interpretive Statements SINUS RHYTHM INCOMPLETE RIGHT BUNDLE BRANCH BLOCK DELAYED PRECORDIAL R/S TRANSITION BORDERLINE T WAVE ABNORMALITY- ANTERIOR LEADS BASELINE ARTIFACT- I, II, III, AVR, AVL, AVF, V1-V6 BORDERLINE ECG Compared to ECG 08/14/2023 17:52:56 NO SIGNIFICANT CHANGE Electronically Signed On 12-31-2023 19:12:04 [employer] by Jeffery Flores D.O.
--- NOTE | 2023-12-31 17:38 | ED_ITS ---
HPI - Dizziness General Chief Complaint: Dizziness Stated Complaint: HEADACHE Time Seen by Provider: 12/31/23 17:25 Source: patient Mode of arrival: ambulatory Limitations: no limitations History of Present Illness HPI Narrative: 58 year old female presents to the Emergency Department complaining of feeling suddenly dizzy and frontal headache. Onset after getting off work prior to arrival. Feels like room spinning and like may pass out. Denies chest pain or shortness of breath. No recent illness. MD elicited complaint: dizziness and vertigo Onset (ago): minute(s) Timing: sudden onset Severity: moderate Description: sense of movement, room spinning and off-balance History of similar symptoms: No Exacerbating factors: movement/ambulation Relieving factors: remaining still Related Data Home Medications Medication Instructions Recorded Confirmed omeprazole magnesium 20 mg 20 mg PO DAILY 04/13/19 12/31/23 tablet,delayed release (Prilosec OTC) atorvastatin 40 mg tablet 60 mg PO DAILY 06/01/21 12/31/23 fluoxetine 40 mg capsule (Prozac) 20 mg PO BID 06/01/21 12/31/23 multivitamin with minerals 1 tablet PO DAILY 12/01/21 12/31/23 lisinopril 40 mg tablet 40 mg PO DAILY 10/31/22 12/31/23 olanzapine 10 mg tablet 10 mg PO HS 11/17/22 12/31/23 metformin 500 mg tablet,extended 500 mg PO BID 09/28/23 12/31/23 release 24 hr topiramate 50 mg tablet 50 mg PO DAILY 09/28/23 12/31/23 Allergies Allergy/AdvReac Type Severity Reaction Status Date / Time No Known Allergies Allergy Unknown Verified 12/31/23 17:25 Review of Systems Review of Systems: All systems reviewed & are unremarkable except as noted in HPI and below Constitutional: Constitutional: Reports as per HPI, Denies chills, Denies fever(s) and Denies weakness Eyes: Eyes: Reports as per HPI, Denies change in vision and Denies photophobia ENT: Reports system reviewed and no additional complaints, except as do cumented, Reports vertigo, Reports dizziness, Denies nasal congestion and Denies sore throat Cardiovascular: Cardiovascular: Reports as per HPI, Denies chest pain, Denies rapid heart rate and Denies slow heart rate Respiratory: Respiratory: Reports as per HPI, Denies chest congestion, Denies cough and Denies dyspnea Gastrointestinal: Gastrointestinal: Reports as per HPI, Denies abdominal pain, Denies diarrhea, Denies nausea and Denies vomiting Genitourinary: Genitourinary: Reports no additional female genitourinary complaints, Denies nocturia and Denies dysuria Musculoskeletal: Musculoskeletal: Reports no additional musculoskeletal complaints, Denies back pain, Denies myalgias and Denies arthralgias Integumentary/Breasts: Skin/Breast: Reports system reviewed and no additional complaints, except as docu Neurologic: Reports system reviewed and no additional complaints, except as documented, Reports vertigo, Reports dizziness, Reports headache(s), Denies focal weakness, Denies numbness and Denies weakness Psychiatric: Psychiatric: Reports no additional psychiatric complaints Endocrine: Endocrine: Reports no additional endocrine complaints Hematologic/Lymphatic: Hematologic/Lymphatic: Reports no additional hematologic/lymphatic complaints Allergic/Immunologic: Allergic/Immunologic: Reports no additional allergic/ immunologic complaints PMFSH Past Medical History Medical History Anxiety Asthma Congestive heart failure COPD (chronic obstructive pulmonary disease) Depression Hx MRSA infection Hypertension Insect bite Surgical History Surgical History History of cholecystectomy History of hysterectomy History of incision and drainage Several areas to left forearm History of tubal ligation Family History Family History Father Heart disease Mother , Mother at age 60. 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 Social History Social History Social History: The patient is but lives with her boyfriend now and her daughter and granddaughter. The patient has 2 children. She denies any alcohol or any other illicit drugs. The patient works in the [employer]. And she is a former smoker. She does not have a durable power privacy attorney for healthcare. Code status full code Smoking packs per day: 1.5 Smoking cigarettes per day: 30.0 Years smoked: 30 Smoking pack-years: 45.00 Smoking status: Former smoker Tobacco type: cigarettes Second hand tobacco smoke exposure: Yes Alcohol intake: never Substance use: never Substance use type: does not use Lack of Transportation: No Lack of Food: Sometimes True Current Housing: I Have Housing Concerned About Future Housing: No Difficulty Paying Gas/Electric Bills: No Difficulty Paying for Meds: No Currently Unemployed: No Education: High School Diploma/GED Difficulty w/ Childcare or Family Care: No Spiritual care concerns: No Exam Const: General: healthy appearing Nutritional Appearance: well nourished Orientation/consciousness: patient oriented x3 Limitations: no limitations HENMT: Head: normal to inspection Ears: TM's normal bilaterally and EAC's normal Face/Nose/Sinus: Normal external nose present and Normal nares present Face and sinus: normal facial exam and sinuses nontender Mouth: Yes Normal oral and palatal mucosa present and Yes moist mucous membranes Teeth and gingiva: dentition normal Throat: posterior oropharynx normal and uvula midline Eyes: Conjunctivae: conjunctivae normal Pupils: Equal, round and reactive pupils present EOM: EOMs intact bilaterally Direct Ophthalmoscopy: no photophobia Neck: Neck: normal visual inspection and no meningeal signs Chest: Chest palpation & inspection: normal inspection of the chest Resp: Effort & Inspection: normal respiratory effort Auscultation: clear to auscultation bilaterally Cardio: Rate: regular rate Rhythm: regular rhythm Heart sounds: Murmur heart sound present GI: Inspection: non-distended GI Palp: Yes Soft to palpation and No Tenderness to palpation present (GI) : General: Yes bladder normal to palpation Back/Spine/Pelvis: Back: no CVA tenderness Skin: General skin exam: normal color Rashes: no rashes Wounds: no wounds Neuro: General: patient oriented x3, moves all extremities, no meningeal signs, no focal motor deficits and CN's II-XI intact bilaterally Cranial nerves: Yes Nystagmus not present Speech: normal speech Extrem: General: normal to inspection and no clubbing, cyanosis or edema Psych: Mental Status: mental status grossly normal Affect: normal affect Attitude: cooperative Course Course Emergency Course: 58 y/o female 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 Feels like room spinning. Worse with movement, better with rest. [place] like might pass out. No chest pain or shortness of breath. PE: no acute findings Orthostatics: [lay] 121/70 (82), [sit] 106/87 (94), [stand] 116/76 (100) CBC: H/H 12.8/38.8, Plt 275; wbc 7.9 with 57 S, 33 L, 6 M CMP: Na 139, K 3.3, Cl 104, CO2 23, Glc 123, BUN 9, Cr 0.76; LFT's normal TNI: < 4 EKG: NSR, 78, NAC Lactic: 1.5 UA: 31-50 wbc, 2+ LE, 3+ bacteria, trace ketone UDS: +BZO M.4 CXR: NAD CT Head: no acute findings Tx: coloring room man, Pulse ox, saline lock. Bactrim DS po, Mag oxide 400 mg po *reviewed and discussed results with patient and SO. Discussed further management. Patient voices understanding and agreement. Rx and Instructions Vital Signs Vital signs: Vital Signs Temperature 35.9 C L 12/31/23 17:18 Pulse Rate 88 12/31/23 17:18 Respiratory Rate 20 12/31/23 17:18 Blood Pressure 140/78 12/31/23 17:18 Pulse Oximetry 95 12/31/23 17:18 Oxygen Delivery Room Air 12/31/23 17:18 Temperature 35.9 C L 12/31/23 17:29 Pulse Rate 77 12/31/23 19:01 Respiratory Rate 20 12/31/23 19:01 Blood Pressure 100/58 L 12/31/23 19:01 Pulse Oximetry 95 12/31/23 19:01 Oxygen Delivery Room Air 12/31/23 17:29 MDM - Dizziness Lab Data 12/31/23 17:44 12/31/23 17:44 Labs: Lab Results 12/31/23 12/31/23 12/31/23 Range/Units 17:44 17:45 18:06 WBC 7.9 (4.8-10.8) K/mm3 RBC 4.57 (4.20-5.40) M/mm3 Hgb 12.8 (12.0-15.0) g/dL Hct 38.8 (35.0-49.0) % MCV 84.9 (78.0-102.0) fL MCH 28.0 (27.0-31.0) pg MCHC 33.0 (32-36) g/dL RDW 13.7 (11.6-14.4) % Plt Count 275 (150-420) K/mm3 MPV 10.1 (9.2-11.8) fl Immature Gran % (Auto) 0.1 H (0.0-0.0) % Neut % (Auto) 56.8 (50.0-70.0) % Lymph % (Auto) 33.5 (18.0-42.0) % [place] % (Auto) 5.9 (2.0-11.0) % Eos % (Auto) 3.4 (1.0-6.0) % Baso % (Auto) 0.3 (0.0-1.0) % Lymph # (Auto) 2.65 (1.10-4.50) K/mm3 [place] # (Auto) 0.47 (0.10-0.90) K/mm3 Eos # (Auto) 0.27 (0.02-0.50) K/mm3 Baso # (Auto) 0.02 (0.00-0.10) K/mm3 Abs Immat Gran (auto) 0.01 H (0.00-0.00) K/mm3 Absolute Neuts (auto) 4.48 (1.70-7.20) K/mm3 Absolute Nucleated RBC 0.00 (0.00-0.00) K/mm3 Nucleated RBC % 0.0 (0-0.0) % Sodium 139 (136-145) mmol/L Potassium 3.3 L (3.5-5.1) mmol/L Chloride 104 (98-108) mmol/L Carbon Dioxide 23 (21-32) mmol/L Anion Gap 12 (4-12) mmol/L BUN 9 (7-18) mg/dL Creatinine 0.76 (0.55-1.02) mg/dL Estim Creat Clear Calc 97 ml/min Estimated GFR > 60 (59 - ) Glucose 123 H (70-99) mg/dL Calculated Osmolality 287 (285-295) mOsm/kg Lactic Acid 1.5 (0.4-2.0) mmol/L Calcium 9.0 (8.5-10.1) mg/dL Magnesium 1.4 L (1.8-2.4) mg/dL Total Bilirubin 0.3 (0.00-1.00) mg/dL AST 15 (15-37) U/L ALT 21 (14-59) U/L Alkaline Phosphatase 148 H (46-116) U/L Troponin I < 4.0 (0.00-60.4) ng/L Total Protein 6.7 (6.4-8.2) g/dL Albumin 3.2 L (3.4-5.0) g/dL Urine Color (Yellow) Urine Appearance (Clear) Urine pH (5.0-8.0) Ur Specific [place] (1.010-1.020) Urine Protein (Negative) Urine Glucose (UA) (Negative) Urine Ketones (Negative) Ur Blood (Man) (Negative) Urine Nitrate (Negative) Urine Bilirubin (Negative) Urine Urobilinogen (0.2-1.0) mg/dL Ur Leukocyte Esterase (Negative) Urine RBC (0-2) /hpf Urine WBC (0-3) /hpf Ur Squamous Epith Cells (Few) /hpf Urine Bacteria (None) /hpf Urine Opiates Screen Negative (Negative) Urine Methadone Screen Negative (Negative) Ur Barbiturates Screen Negative (Negative) Ur Phencyclidine Scrn Negative (Negative) Ur Amphetamine Screen Negative (Negative) U Benzodiazepines Scrn Positive A (Negative) Urine Cocaine Screen Negative (Negative) U Cannabinoids Screen Negative (Negative) 12/31/23 Range/Units 18:07 WBC (4.8-10.8) K/mm3 RBC (4.20-5.40) M/mm3 Hgb (12.0-15.0) g/dL Hct (35.0-49.0) % MCV (78.0-102.0) fL MCH (27.0-31.0) pg MCHC (32-36) g/dL RDW (11.6-14.4) % Plt Count (150-420) K/mm3 MPV (9.2-11.8) fl Immature Gran % (Auto) (0.0-0.0) % Neut % (Auto) (50.0-70.0) % Lymph % (Auto) (18.0-42.0) % [place] % (Auto) (2.0-11.0) % Eos % (Auto) (1.0-6.0) % Baso % (Auto) (0.0-1.0) % Lymph # (Auto) (1.10-4.50) K/mm3 [place] # (Auto) (0.10-0.90) K/mm3 Eos # (Auto) (0.02-0.50) K/mm3 Baso # (Auto) (0.00-0.10) K/mm3 Abs Immat Gran (auto) (0.00-0.00) K/mm3 Absolute Neuts (auto) (1.70-7.20) K/mm3 Absolute Nucleated RBC (0.00-0.00) K/mm3 Nucleated RBC % (0-0.0) % Sodium (136-145) mmol/L Potassium (3.5-5.1) mmol/L Chloride (98-108) mmol/L Carbon Dioxide (21-32) mmol/L Anion Gap (4-12) mmol/L BUN (7-18) mg/dL Creatinine (0.55-1.02) mg/dL Estim Creat Clear Calc ml/min Estimated GFR (59 - ) Glucose (70-99) mg/dL Calculated Osmolality (285-295) mOsm/kg Lactic Acid (0.4-2.0) mmol/L Calcium (8.5-10.1) mg/dL Magnesium (1.8-2.4) mg/dL Total Bilirubin (0.00-1.00) mg/dL AST (15-37) U/L ALT (14-59) U/L Alkaline Phosphatase (46-116) U/L Troponin I (0.00-60.4) ng/L Total Protein (6.4-8.2) g/dL Albumin (3.4-5.0) g/dL Urine Color Light yellow (Yellow) Urine Appearance Clear (Clear) Urine pH 5.5 (5.0-8.0) Ur Specific [place] 1.020 (1.010-1.020) Urine Protein Negative (Negative) Urine Glucose (UA) Negative (Negative) Urine Ketones Trace H (Negative) Ur Blood (Man) Negative (Negative) Urine Nitrate Negative (Negative) Urine Bilirubin Negative (Negative) Urine Urobilinogen 0.2 (0.2-1.0) mg/dL Ur Leukocyte Esterase 2+ H (Negative) Urine RBC 0-2 (0-2) /hpf Urine WBC 31-50 H (0-3) /hpf Ur Squamous Epith Cells Many H (Few) /hpf Urine Bacteria 3+ H (None) /hpf Urine Opiates Screen (Negative) Urine Methadone Screen (Negative) Ur Barbiturates Screen (Negative) Ur Phencyclidine Scrn (Negative) Ur Amphetamine Screen (Negative) U Benzodiazepines Scrn (Negative) Urine Cocaine Screen (Negative) U Cannabinoids Screen (Negative) Discharge Plan Discharge Clinical Impression: Orthostatic hypotension, Dehydration, UTI (urinary tract infection), Hypomagnesemia Patient Disposition: Home, Self-Care Condition: Stable Instructions: Antibiotic Form, Dehydration (ED), Urinary Tract Infection in Women (ED), Hypotension (ED), Hypomagnesemia (ED) Additional Instructions: Push fluids Take medications as prescribed Follow up Primary Care Physician Return as needed Patient Language: Taiwanese Prescriptions: New nitrofurantoin monohyd/m-cryst [Macrobid] 100 mg capsule 100 mg PO Q12H 7 Days Qty: 14 0RF Rx Instructions: must administer with a meal/food magnesium oxide 400 mg magnesium tablet 400 mg PO DAILY Qty: 10 0RF No Action omeprazole magnesium [Prilosec OTC] 20 mg Tablet,Delayed Release (Dr/Ec) 20 mg PO DAILY lisinopril 40 mg tablet 40 mg PO DAILY olanzapine 10 mg tablet 10 mg PO HS tramadol 50 mg tablet 50 mg PO Q6H PRN (Reason: pain) Qty: 15 0RF fluoxetine [Prozac] 40 mg capsule 20 mg PO BID atorvastatin 40 mg tablet 60 mg PO DAILY metformin 500 mg tablet extended release 24 hr 500 mg PO BID topiramate 50 mg tablet 50 mg PO DAILY multivitamin with minerals Tablet 1 tablet PO DAILY alprazolam 1 mg tablet 1 mg PO DAILY PRN (Reason: Anxiety) Qty: 1 0RF albuterol sulfate 90 mcg/actuation HFA aerosol inhaler 2 puff INHALATION Q4H PRN (Reason: Wheezing) Qty: 1 0RF Follow-up/Referrals: Mark,ADDIE Bustos [Primary Care Provider] - Time of Disposition: 19:24
[2023-12-31 17:48] LABS: Basophils Absolute Auto 0.02 K/mm3 (0.00-0.10); Basophils Percent Auto 0.3 % (0.0-1.0); Eosinophils Absolute Auto 0.27 K/mm3 (0.02-0.50); Eosinophils Percent Auto 3.4 % (1.0-6.0); Hematocrit 38.8 % (35.0-49.0); Hemoglobin 12.8 g/dL (12.0-15.0); Immature Granulocyte Absolute 0.01 K/mm3 (0.00-0.00); Immature Granulocyte Percent A 0.1 % (0.0-0.0); Lymphocytes Absolute Auto 2.65 K/mm3 (1.10-4.50); Lymphocytes Percent Auto 33.5 % (18.0-42.0); Mean Corpuscular Volume 84.9 fL (78.0-102.0); Mean Platelet Volume 10.1 fl (9.2-11.8); Monocytes Absolute Auto 0.47 K/mm3 (0.10-0.90); Monocytes Percent Auto 5.9 % (2.0-11.0); Neutrophils Absolute Auto 4.48 K/mm3 (1.70-7.20); Neutrophils Percent Auto 56.8 % (50.0-70.0); Platelet Count Result 275 K/mm3 (150-420); Red Blood Count 4.57 M/mm3 (4.20-5.40); Red Cell Distribution Width 13.7 % (11.6-14.4); White Blood Count 7.9 K/mm3 (4.8-10.8)
[2023-12-31 18:51] LABS: Add Urine Microscopic? YES; Appearance Urine Clear (Clear); Bilirubin Urine Negative (Negative); Blood Urine Negative (Negative); Color Urine Light Yellow (Yellow); Glucose Urine UA Negative (Negative); Ketones Urine Trace (Negative); Leukocyte Esterase Ur 2+ (Negative); Nitrate Urine Negative (Negative); Protein Urine Negative (Negative); Urobilinogen Urine 0.2 mg/dL (0.2-1.0); pH Urine 5.5 (5.0-8.0)
[2023-12-31 18:55] LABS: Bacteria Urine 3+ /hpf; RBC Urine 0-2 /hpf (0-2); Squamous Epithelial Cell Urine Many /hpf (Few); WBC Urine 31-50 /hpf (0-3)
--- NOTE | 2023-12-31 18:55 | PC.NURSE ---
assumed care. report received from koki medina. patient is resting on stretcher. call light in reach. awaiting test results
[2023-12-31 19:01] LABS: Lactic Acid Reflex 1.5 mmol/L (0.4-2.0)
[2023-12-31 19:08] LABS: Amphetamine Screen Urine Negative (Negative); Barbiturate Screen Urine Negative (Negative); Benzodiazepines Screen Urine Positive (Negative); Cannabinoid Screen Urine Negative (Negative); Cocaine Screen Urine Negative (Negative); Methadone Screen Urine Negative (Negative); Opiate Screen Urine Negative (Negative); Phencyclidine Screen Urine Negative (Negative)
[2023-12-31 19:10] LABS: Alanine Aminotransferase 21 U/L (14-59); Albumin Level 3.2 g/dL (3.4-5.0); Alkaline Phosphatase 148 U/L (46-116); Anion Gap 12 mmol/L (4-12); Aspartate Amino Transferase 15 U/L (15-37); Bilirubin,Total 0.3 mg/dL (0.00-1.00); Blood Urea Nitrogen 9 mg/dL (7-18); Carbon Dioxide 23 mmol/L (21-32); Chloride 104 mmol/L (98-108); Estimated CRCL calculation 97 ml/min; Estimated Glomerular Filt Rate > 60; Glucose 123 mg/dL (70-99); Magnesium 1.4 mg/dL (1.8-2.4); Osmolality Calculated 287 mOsm/kg (285-295); Potassium 3.3 mmol/L (3.5-5.1); Sodium 139 mmol/L (136-145); Total Protein 6.7 g/dL (6.4-8.2); Troponin I < 4.0 ng/L (0.00-60.4)
--- NOTE | 2023-12-31 19:18 | PC.NURSE ---
DR BERNAL AT THE BEDSIDE
[2023-12-31] MEDS: SULFAMETHOXAZOLE/TRIMETHOPRIM 800/160 MG DS TABLET 1 TAB PO (19:21)
[2023-12-31] MEDS: MAGNESIUM OXIDE 400 MG TABLET PO (19:21)
== END 2023-12-31 19:40 | disposition home or self-care (01) ==
PROVIDERS: Emergency Provider Emergency Medicine; PCP Nurse Practitioner Family
DX: I95.1 Orthostatic hypotension (principal); E86.0 Dehydration; N39.0 Urinary tract infection, site not specified; E83.42 Hypomagnesemia; J44.9 Chronic obstructive pulmonary disease, unspecified; I11.0 Hypertensive heart disease with heart failure; I50.9 Heart failure, unspecified; Z87.891 Personal history of nicotine dependence; Z79.899 Other long term (current) drug therapy; Z79.84 Long term (current) use of oral hypoglycemic drugs
CPT/HCPCS: 36415; 70450; 71045; 80053; 80307; 81001; 83605; 83735; 84484; 85025; 93005; 99284; A9270

== ENCOUNTER 2024-01-16 09:00 | Outpatient (CLI) | payer OTHER, SELFPAY ==
--- NOTE | ~2024-01-16 | CT_ITS ---
CT Scan of the Chest without Contrast: Clinical Indication: Lung cancer screening, nicotine dependence Technique: Contiguous sections were acquired throughout the chest without intravenous contrast. Dose reduction technique was used on this scan by utilizing automated exposure control and iterative recon struction technique. The dose-length product (DLP) was 314.92 mGy-cm. COMPARISON: 03/04/2023 Findings: There is no evidence of any significant mediastinal, hilar or axillary lymphadenopathy. The mediastin al soft tissues appear normal. There is no evidence of pleural or pericardial effusion. There is linear scarring in the right upper lobe and lingula. There is discoid atelectasis or scarrin g at the medial left lung base. No discrete pulmonary nodule evident. Images through the upper abdomen reveal no abnormalities. Impression: Lung RADS 2: Benign appearance. 12 month follow-up screening CT advised. Reviewed, dictated and finalized at [facility]. T SALES ASSISTANT Impression: Lung RADS 2: Benign appearance. 12 month follow-up screening CT advised.
== END 2024-01-16 09:01 | disposition home or self-care (01) ==
LOC: CHSIMG 09:02
PROVIDERS: PCP Nurse Practitioner Family; Visit Provider Nurse Practitioner Family
DX: Z12.2 Encounter for screening for malignant neoplasm of respiratory organs (principal); Z87.891 Personal history of nicotine dependence
CPT/HCPCS: 71271

== ENCOUNTER 2024-03-20 16:36 | Emergency (ER) | payer OTHER, SELFPAY ==
[2024-03-20 16:37] VITALS: BP 129/78; PULSE 80; RESP 18; TEMP 36.4; O2SAT 99
--- OUTSIDE RECORDS SUMMARY | 2024-03-20 16:40 | XMS_ITS | Clinical Summary ---
Author Organization [facility] Address [address] [place] [id number] Care Team Providers Care Home Health Travel Ot Name Role Phone Rhianna Shepard Primary Care Provider [phone] Social History Tobacco Use Types Packs/Day Years Used Date Smoking Tobacco: Never Assessed Comments Unknown Sex and Gender Information Value Date Recorded Sex Assigned at Not on file Legal Sex Female 4:47 PM CDT Gender Identity Not on file Sexual Orientation Not on file Last Filed Vital Signs Vital Sign Reading Time Taken Comments Blood Pressure 128/85 06/26/2017 1:51 PM CDT Pulse 79 06/26/2017 1:51 PM CDT Temperature - - Respiratory Rate - - Oxygen Saturation - - Inhaled Oxygen Concentration - - Weight 81.6 kg (180 lb) 06/26/2017 1:51 PM CDT Height 167.6 cm (5' 6 ) 06/26/2017 1:51 PM CDT Body Mass Index 29.05 06/26/2017 1:51 PM CDT Plan of Treatment Health Maintenance Due Date Last Done Comments Cervical Cancer Screening Pa p Smear (Age 30 to 64) Every 3 Years 1966 Colorectal Cancer Screening Colonoscopy (10 Years) 1966 Annual Physical 1969 Hepatitis C 1984 DTaP, Tdap and Td Vaccines ( 1 - Tdap) 1985 Hepatitis B Vaccines (1 of 3 - 19+ 3-dose series) 1985 Cervical Cancer Screening Pa p with HPV Testing (Age 30 to 64) Every 5 Years 1996 Cervical Cancer Screening with HPV 1996 Zoster Vaccines (1 of 2) 2016 Mammogram Screening 11/17/2021 11/18/2019 COVID-19 Vaccine (2023-2 5 season) 2023 Influenza Adult (#1) 2023 Meningococcal B Vaccine Aged Out No l onger eligible based on patient's age to complete this topic Meningococcal Vaccine Aged Out No espinoza sweta eligible based on patient's age to complete this topic Pneumococcal Vaccine: Pediat rics (0 to 5 Years) and At-Risk Patients (6 to 64 Years) Aged Out No longer eligi ble based on patient's age to complete this topic RSV Immunizations Under 20 Months Aged Out No longer eligible based on patient's age to complete this topic Procedures Procedure Name Priority Date/Time Associated Diagnosis Comments MG SCREENING W IVÁN FABIAN DIGI Routine 11/18/2019 1:34 PM CDT Visit for screening mammogram from Last 3 Months or Most Recently Relevant to Health Maintenance Results * MG SCREENING W IVÁN FABIAN DIGI (11/18/2019 1:34 PM CDT) Anatomical Region Laterality Modality Breast Bilateral Mammography 11/19/2019 4:49 PM CDT Impressions 11/19/2019 4:50 PM CDT IMPRESSION: No suspicious change since 06/26/2017. Recommendation: 1: Routine screening mammogram Bilateral in 1 Year Assessment: ACR BI-RADS Category 2 - Benign. Interpreted By: Danis Campoverde MD, 11/19/2019 4:49 PM Narrative 11/19/2019 4:50 PM CDT Examination: Digital screening mammogram with CAD. Clinical history: Asymptomatic patient presents for routine screening. Comparison: 06/26/2017. Technique: Bilateral digital mammograms. The exam was interpreted with the use of a computer-aided detection (CAD) system. Additional 3-D tomosynthesis images were acquired. Tissue density: The breast tissue contains scattered fibroglandular densities. Findings: The breast tissue contains scattered fibroglandular densities. Benign-appearing calcification noted. No suspicious mass, microcalcification or area of architectural distortion can be identified. From a mammographic standpoint, routine followup in one year would seem adequate. us Rhianna WALLACE MAMMO Final Result from Last 3 Months or Most Recently Relevant to Health Maintenance Insurance [employer] Care Teams Home Health Travel Ot Relationship Specialty Start Date End Date Rhianna Shepard PA [address] [place] [address] PCP - General PHYSICIAN CLOUD SERVICES ARCHITECT 11/18/19
--- OUTSIDE RECORDS SUMMARY | 2024-03-20 16:40 | XMS_ITS | Encounter Summary ---
Author Organization [facility] Address [address] [place] [address] Care Team Providers Care Lead Installer Name Role Phone Rhianna Shepard Primary Care Provider [phone] Encounter Details Date Type Department Care Team (Late st Contact Info) Description 07/13/2018 Abstract SFL CONVERSION [address] [place] [address] , Generic Conversion, Social History Tobacco Use Types Packs/Day Years Used Date Smoking Tobacco: Never Assessed Comments Unknown Sex and Gender Information Value Date Recorded Sex Assigned at Not on file Legal Sex Female 4:47 PM CDT Gender Identity Not on file Sexual Orientation Not on file documented as of this encounter Plan of Treatment Not on file documented as of this encounter Visit Diagnoses Not on filedocumented in this encounter Care Teams Lead Installer Relationship Specialty Start Date End Date Rhianna Shepard PA [address] [place] [address] PCP - General PHYSICIAN BRUSH HOLDER INSPECTOR 11/18/19 documented as of this encounter
--- OUTSIDE RECORDS SUMMARY | 2024-03-20 16:40 | XMS_ITS | Clinical Summary ---
Author Organization [facility] Address [address] [facility], [place] [address] Phone Care Team Providers Care Service Bar Cashier Name Role Phone Rhianna Shepard Primary Care Provider + Allergies No known active allergies Medications albuterol (PROVENTIL, VENTOLIN) (5 MG/ML) 0.5% Nebulizer Soln 2.5 mg by Nebulization route. Active ALPRAZolam (XANAX) 1 MG Tablet Take 1 mg by mouth 2 times daily. Active cyclobenzaprine (FLEXERIL) 10 MG Tablet Take 10 mg by mouth 3 times daily as needed for Muscle spasms. Active furosemide (LASIX) 20 MG Tablet Take 20 mg by mouth daily. Active lisinopril (PRINIVIL, ZESTRIL) 5 MG Tablet Take 5 mg by mouth daily. Active OLANZapine (ZYPREXA) 7.5 MG Tablet Take 7.5 mg by mouth nightly. Active OXcarbazepine (TRILEPTAL) 600 MG Tablet Take 600 mg by mouth 2 times daily. Active omeprazole (PRILOSEC) 20 MG CAPSULE DELAYED RELEASE Take 20 mg by mouth daily. Active beclomethasone (QVAR) 80 MCG/ACT Aerosol Solution take 2 Puffs by inhalation 2 times daily. Active umeclidinium (INCRUSE ELLIPTA) 62.5 MCG/INH AEROSOL POWDER, BREATH ACTIVATED take 1 Puff by inhalation daily. 1 Each 5 7 Active albuterol (PROAIR HFA) 108 (90 Base) MCG/ACT Aerosol Solution take 2 Puffs by inhalation every 4 hours as needed for Wheezing. 8.5 g 5 7 Active Mometasone Furo-Formoterol Fum (DULERA) 100-5 MCG/ACT Aerosol take 2 Puffs by inhalation every 12 hours. 1 Inhaler 3 8 Active Active Problems Problem Noted Date Diagnosed Date Multiple lung nodules 11/01/2016 Panlobular emphysema 11/01/2016 Tobacco use disorder 11/01/2016 Gastroesophageal reflux disease without esophagi tis 11/01/2016 Essential (primary) hypertension 11/01/2016 JACOB (obstructive sleep apnea) 11/01/2016 Family History Medical History Relation Name Comments Hypertension Father Other-comment Father HEART VALVE RE PLACEMNENT Diabetes Mother Other-comment Mother MENTAL ILLNESS Relation Name Status Comments Father Mother Social History Tobacco Use Types Packs/Day Years Used Date Smoking Tobacco: Every Day Cigarettes 1 15 Smokeless Tobacco: Never Tobacco Cessation:Ready to Q uit: Yes; Counseling Given: No Comments No Sex and Gender Information Value Date Recorded Sex Assigned at Not on file Legal Sex Female 11:25 PM CDT Gender Identity Not on file Sexual Orientation Not on file Last Filed Vital Signs Vital Sign Reading Time Taken Comments Blood Pressure 132/74 07/02/2023 9:00 PM CDT Pulse 68 07/02/2023 9:15 PM CDT Temperature 36.8 C (98.3 F) 07/02/2023 7:00 PM CDT Respiratory Rate 19 07/02/2023 9:15 PM CDT Oxygen Saturation 96% 07/02/2023 9:15 PM CDT Inhaled Oxygen Concentration - - Weight 131.5 kg (290 lb) 07/02/2023 7:00 PM CDT Height 167.6 cm (5' 6 ) 07/02/2023 7:00 PM CDT Body Mass Index 46.81 07/02/2023 7:00 PM CDT Plan of Treatment Health Maintenance Due Date Last Done Comments Hepatitis C Virus (HCV) Screening 1966 Pneumococcal Immunization Combined (1 of 2 - PCV) 1972 Hepatitis B Immunization (1 of 3 - 19+ 3-dose series) 1985 Pneumococcal Immunization (5 0+ years) (1 of 2 - PCV) 1985 Colonoscopy 05/03/2011 Colorectal Cancer Screening 05/03/2011 Cologuard 2016 Immunochemical Fecal Occult Blood 2016 Zoster Immunization (1 of 2) 2016 Mammogram 11/17/2021 11/18/2019 Influenza Immunization (#1) 10/07/202302/05, 11/01/2018 SARS-COV-2 Immunization ( season) 2023 02/09/2021, 06/29/2020, 06/01/2020 Respiratory Syncytial Virus (RSV) Immunization (Adult) (1 - 1-dose 75+ series) 2041 DTaP/Tdap/Td Immunization Discontinued 03/14/2022 TdaP Immunization Completed 03/14/2022 Meningococcal Immunization (ACWY) Aged Out No longer eligible based on patient's age to complete this topic Rotavirus Immunization Aged Out No lo nger eligible based on patient's age to complete this topic Insurance MEDICAID [employer] Care Teams Service Bar Cashier Relationship Specialty Start Date End Date Rhianna Shepard PAC [address] [place], [place] [id number] PCP - General Advanced Practice Nurse 07/02/23
[2024-03-20] MEDS: methylPREDNISolone ACETATE 40 MG/ML VIAL 80 MG IM (17:13)
--- NOTE | 2024-03-20 17:13 | ED_ITS ---
HPI - Extremity Problem General Chief complaint: Extremity Problem,Nontraumatic Stated complaint: tingling to extremities Time Seen by Provider: 03/20/24 16:47 Source: patient and family Mode of arrival: ambulatory Limitations: no limitations History of Present Illness HPI Narrative: This is a 58-year-old female that presents with some right lower back pain radiating into her right upper extremity with some numbness and tingling in her foot, with no known injury no neurological deficits no fever chills no saddle paresthesias Complaint: extremity pain Onset (ago): day(s) Pain Consistency: constant Location: right Severity scale (1-10): 6 Related Data Home Medications ?Medication ?Instructions ?Recorded ?Confirmed ?Last Taken ?Type omeprazole magnesium 20 mg 20 mg PO DAILY 04/13/19 12/31/23 11/13/23 History tablet,delayed release (Prilosec OTC) atorvastatin 40 mg tablet 60 mg PO DAILY 06/01/21 12/31/23 11/13/23 History fluoxetine 40 mg capsule (Prozac) 20 mg PO BID 06/01/21 12/31/23 11/13/23 Hi story multivitamin with minerals 1 tablet PO DAILY 12/01/21 12/31/23 11/13/23 History lisinopril 40 mg tablet 40 mg PO DAILY 10/31/22 12/31/23 11/13/23 History olanzapine 10 mg tablet 10 mg PO HS 11/17/22 12/31/23 11/13/23 History metformin 500 mg tablet,extended 500 mg PO BID 09/28/23 12/31/23 11/13/23 History release 24 hr topiramate 50 mg tablet 50 mg PO DAILY 09/28/23 12/31/23 11/13/23 History Allergies Allergy/AdvReac Type Severity Reaction Status Date / Time No Known Allergies Allergy Unknown Verified 03/20/24 16:43 Review of Systems Review of Systems: All systems reviewed & are unremarkable except as noted in HPI and below PMFSH Past Medical History Medical History Insect bite Hx MRSA infection Congestive heart failure Hypertension COPD (chronic obstructive pulmonary disease) Asthma Anxiety Depression Surgical History Surgical History History of incision and drainage Several areas to left forearm History of cholecystectomy History of hysterectomy History of tubal ligation Family History Family History Father Heart disease Mother , Mother at age 60. Diabetes mellitus Sibling Rheumatoid arthritis Has RA in her hands, sees pump house operator. Social History Social History Social History: The patient is but lives with her boyfriend now and her daughter and granddaughter. The patient has 2 children. She denies any alcohol or any other illicit drugs. The patient works in the [employer] And she is a former smoker. She does not have a durable power trial attorney for healthcare. Code status full code Smoking packs per day: 1.5 Smoking cigarettes per day: 30.0 Years smoked: 30 Smoking pack-years: 45.00 Smoking status: Former smoker Tobacco type: cigarettes Second hand tobacco smoke exposure: Yes Alcohol intake: never Substance use: never Substance use type: does not use Lack of Transportation: No Lack of Food: Sometimes True Current Housing: I Have Housing Concerned About Future Housing: No Difficulty Paying Gas/Electric Bills: No Difficulty Paying for Meds: No Currently Unemployed: No Education: High School Diploma/GED Difficulty w/ Childcare or Family Care: No Spiritual care concerns: No Exam Const: General: healthy appearing and no acute distress Nutritional Appearance: well nourished Orientation/consciousness: patient oriented x3 Limitations: no limitations Chest: Chest palpation & inspection: normal inspection of the chest Resp: Effort & Inspection: normal respiratory effort Auscultation: clear to auscultation bilaterally Cardio: Rate: regular rate Rhythm: regular rhythm GI: GI Palp: Yes Soft to palpation Auscultation: normal bowel sounds Skin: General skin exam: normal color Rashes: no rashes Neuro: General: patient oriented x3, moves all extremities and no meningeal s igns Extrem: Other: positive straight leg raising test on the right with some tenderness in her L4 and 5 lumbar paravertebral area. Course Course Emergency Course: Patient received a dose of IM Depo Medrol 80mg. Vital Signs Vital signs: Vital Signs Temperature 36.4 C L 03/20/24 16:37 Pulse Rate 80 03/20/24 16:37 Respiratory Rate 18 03/20/24 16:37 Blood Pressure 129/78 02/13/25 16:37 Pulse Oximetry 99 03/20/24 16:37 Oxygen Delivery Room Air 03/20/24 16:37 Temperature 36.4 C L 03/20/24 16:37 Pulse Rate 80 03/20/24 16:37 Respiratory Rate 18 03/20/24 16:37 Blood Pressure 129/78 03/20/24 16:37 Pulse Oximetry 99 03/20/24 16:37 Oxygen Delivery Room Air 03/20/24 16:44 Critical Care Time Critical Care Time Critical Care Time: No Discharge Plan Discharge Clinical Impression: Sciatica Qualifiers: Laterality: right Qualified Code(s): M54.31 - Sciatica, right side Patient Disposition: Home, Self-Care Condition: Stable Instructions: Antibiotic Form, Sciatica (ED) Additional Instructions: advised to take medication as prescribed and to follow up with primary within 1 week further evaluation and treatment. Patient Language: Indonesian Prescriptions: New prednisone 20 mg tablet 20 mg PO DAILY 5 Days Qty: 5 0RF cyclobenzaprine 10 mg tablet 10 mg PO TID PRN (Reason: muscle spasm) Qty: 14 0RF No Action omeprazole magnesium [Prilosec OTC] 20 mg Tablet,Delayed Release (Dr/Ec) 20 mg PO DAILY lisinopril 40 mg tablet 40 mg PO DAILY olanzapine 10 mg tablet 10 mg PO HS tramadol 50 mg tablet 50 mg PO Q6H PRN (Reason: pain) Qty: 15 0RF nitrofurantoin monohyd/m-cryst [Macrobid] 100 mg capsule 100 mg PO Q12H 7 Days Qty: 14 0RF Rx Instructions: must administer with a meal/food magnesium oxide 400 mg magnesium tablet 400 mg PO DAILY Qty: 10 0RF fluoxetine [Prozac] 40 mg capsule 20 mg PO BID atorvastatin 40 mg tablet 60 mg PO DAILY metformin 500 mg tablet extended release 24 hr 500 mg PO BID topiramate 50 mg tablet 50 mg PO DAILY multivitamin with minerals Tablet 1 tablet PO DAILY alprazolam 1 mg tablet 1 mg PO DAILY PRN (Reason: Anxiety) Qty: 1 0RF albuterol sulfate 90 mcg/actuation HFA aerosol inhaler 2 puff INHALATION Q4H PRN (Reason: Wheezing) Qty: 1 0RF Follow-up/Referrals: UNKNOWN,DOCTOR [Primary Care Provider] -
--- OUTSIDE RECORDS SUMMARY | 2024-03-20 17:20 | XMS_ITS | Clinical Summary ---
Author Organization [facility] Address [address] [place] [address] Care Team Providers Care Brand Marketing Manager Name Role Phone Rhianna Shepard Primary Care Provider [phone] Social History Tobacco Use Types Packs/Day Years [...] to Health Maintenance Insurance [employer] Care Teams Brand Marketing Manager Relationship Specialty Start Date End Date Rhianna Shepard PA [address] [place] [address] PCP - General PHYSICIAN SCIENTIFIC SPECIALIST 11/18/19
--- OUTSIDE RECORDS SUMMARY | 2024-03-20 17:20 | XMS_ITS | Encounter Summary ---
Author Organization [facility] Address [address] [place] [address] Care Team Providers Care Sales Lead Generator Name Role Phone Rhianna Shepard Primary Care Provider [phone] Encounter Details Date Type Department Care Team (Late st Contact Info) Description 07/13/2018 Abstract SFL CONVERSION [address] [place] [address] , Generic Conversion, Social History Tobacco Use [...] on filedocumented in this encounter Care Teams Sales Lead Generator Relationship Specialty Start Date End Date Rhianna Shepard PA [address] [place] [address] PCP - General PHYSICIAN SENIOR NETWORK ADMINISTRATOR 11/18/19 documented as of this encounter
--- OUTSIDE RECORDS SUMMARY | 2024-03-20 17:20 | XMS_ITS | Clinical Summary ---
Author Organization [facility] Address [address] [facility] [place] [address] Phone Care Team Providers Care Micro Lab Analyst Name Role Phone Rhianna Shepard Primary Care [...] Insurance [employer]ID [employer] Care Teams Micro Lab Analyst Relationship Specialty Start Date End Date Rhianna Shepard PAC [address] [place], [place] [phone] PCP - General Advanced Practice Nurse 07/02/23
== END 2024-03-20 17:45 | disposition home or self-care (01) ==
PROVIDERS: Emergency Provider Emergency Medicine
DX: M54.31 Sciatica, right side (principal); I11.0 Hypertensive heart disease with heart failure; I50.9 Heart failure, unspecified; J44.9 Chronic obstructive pulmonary disease, unspecified; Z87.891 Personal history of nicotine dependence
CPT/HCPCS: 96372; 99283; J1010

== ENCOUNTER 2024-03-26 20:46 | Emergency (ER) | payer OTHER, SELFPAY ==
[2024-03-26] VITALS (14 sets, daily range): BP systolic 104–152; BP diastolic 60–80; PULSE 67–81; RESP 11–22; TEMP 36.6; O2SAT 95–98
--- OUTSIDE RECORDS SUMMARY | 2024-03-26 20:48 | XMS_ITS | Clinical Summary ---
Author Organization [facility] Address [address] [place] [address] Care Team Providers Care Mediation Commissioner Name Role Phone Rhianna Shepard Primary Care Provider [phone] Social History Tobacco Use Types Packs/Day Years [...] to Health Maintenance Insurance [employer] Care Teams Mediation Commissioner Relationship Specialty Start Date End Date Rhianna Shepard PA [address] [place] [address] PCP - General PHYSICIAN SALES REPRESENTATIVE [employer] 11/18/19
--- OUTSIDE RECORDS SUMMARY | 2024-03-26 20:48 | XMS_ITS | Clinical Summary ---
Author Organization [facility] Address [address] [facility], [place] [address] Phone Care Team Providers Care Balancer Scale Name Role Phone Rhianna Shepard Primary Care [...] Insurance [employer]ID [employer] Care Teams Balancer Scale Relationship Specialty Start Date End Date Rhianna Shepard PAC [address] [place], [place] [phone] PCP - General Advanced Practice Nurse 07/02/23
--- OUTSIDE RECORDS SUMMARY | 2024-03-26 20:48 | XMS_ITS | Encounter Summary ---
Author Organization [facility] Address [address] [place] [address] Care Team Providers Care Logistics Administrator Name Role Phone Rhianna Shepard Primary Care Provider [phone] Encounter Details Date Type Department Care Team (Late st Contact Info) Description 07/13/2018 Abstract SFL CONVERSION [address] [place] [address] , Generic Conversion, Social History Tobacco Use [...] on filedocumented in this encounter Care Teams Logistics Administrator Relationship Specialty Start Date End Date Rhianna Shepard PA [address] [place] [address] PCP - General PHYSICIAN TRANSFILL TECHNICIAN 11/18/19 documented as of this encounter
--- NOTE | 2024-03-26 20:49 | ECG_ITS ---
Test Date: 2024-03-26 20:52:53 Measurements Intervals [place] Rate: 75 P: 37 WY: 141 QRS: -2 QRSD: 94 T: 48 QT: 375 QTc: 420 Interpretive Statements SINUS RHYTHM LOW QRS VOLTAGE IN PRECORDIAL LEADS PATTERN CONSISTENT WITH PULMONARY DISEASE BORDERLINE T WAVE ABNORMALITY- ANTERIOR LEADS BASELINE ARTIFACT- I, II, AVR, AVL BORDERLINE ECG Compared to ECG 12/31/2023 18:10:25 NO SIGNIFICANT CHANGE Electronically Signed On 03-27-2024 05:58:55 TRANSIT SURVEY WORKER by Jeffery Flores D.O.
--- NOTE | 2024-03-26 20:56 | ED.CHESTPAIN ---
HPI - Chest Pain General Chief Complaint: Chest Pain Stated Complaint: chest pain Time Seen by Provider: 03/26/24 20:48 Source: patient Mode of arrival: ambulatory Limitations: no limitations History of Present Illness HPI narrative: 58-year-old female, ex-smoker with a history depression hypertension, diabetes mellitus dyslipidemia asthma, CHF presents to the ED with 4 day history of Related Data Home Medications ?Medication ?Instructions ?Recorded ?Confirmed ?Last Taken ?Type omeprazole magnesium 20 mg 20 mg PO DAILY 04/13/19 12/31/23 11/13/23 History tablet,delayed release (Prilosec OTC) atorvastatin 40 mg tablet 60 mg PO DAILY 06/01/21 12/31/23 11/13/23 History fluoxetine 40 mg capsule (Prozac) 20 mg PO BID 06/01/21 12/31/23 11/13/23 History multivitamin with minerals 1 tablet PO DAILY 12/01/21 12/31/23 11/13/23 History lisinopril 40 mg tablet 40 mg PO DAILY 10/31/22 12/31/23 11/13/23 History olanzapine 10 mg tablet 10 mg PO HS 11/17/22 12/31/23 11/13/23 History metformin 500 mg tablet,extended 500 mg PO BID 09/28/23 12/31/23 11/13/23 History release 24 hr topiramate 50 mg tablet 50 mg PO DAILY 09/28/23 12/31/23 11/13/23 History Allergies Allergy/AdvReac Type Severity Reaction Status Date / Time No Known Allergies Allergy Unknown Verified 03/20/24 16:43 [facility] Past Medical History Medical History Insect bite Hx MRSA infection Congestive heart failure Hypertension COPD (chronic obstructive pulmonary disease) Asthma Anxiety Depression Surgical History Surgical History History of incision and drainage Several areas to left forearm History of cholecystectomy History of hysterectomy History of tubal ligation Family History Family History Father Heart disease Mother , Mother at age 60. Diabetes mellitus Sibling Rheumatoid arthritis Has RA in her hands, sees loan originator. Social History Social History Social History: The patient is but lives with her boyfriend now and her daughter and granddaughter. The patient has 2 children. She denies any alcohol or any other illicit drugs. The patient works in the [employer]. And she is a former smoker. She does not have a durable power venetian blind machine operator for healthcare. Code status full code Smoking packs per day: 1.5 Smoking cigarettes per day: 30.0 Years smoked: 30 Smoking pack-years: 45.00 Smoking status: Former smoker Tobacco type: cigarettes Second hand tobacco smoke exposure: Yes Alcohol intake: never Substance use: never Substance use type: does not use Lack of Transportation: No Lack of Food: Sometimes True Current Housing: I Have Housing Concerned About Future Housing: No Difficulty Paying Gas/Electric Bills: No Difficulty Paying for Meds: No Currently Unemployed: No Education: High School Diploma/GED Difficulty w/ Childcare or Family Care: No Spiritual care concerns: No Course Vital Signs Vital signs: Vital Signs Temperature 36.6 C 03/26/24 20:47 Pulse Rate 81 03/26/24 20:47 Respiratory Rate 20 03/26/24 20:47 Blood Pressure 152/80 H 03/26/24 20:47 Pulse Oximetry 98 03/26/24 20:47 Oxygen Delivery Room Air 03/26/24 20:47 Temperature 36.6 C 03/26/24 20:47 Pulse Rate 81 03/26/24 20:47 Respiratory Rate 20 03/26/24 20:47 Blood Pressure 152/80 H 03/26/24 20:47 Pulse Oximetry 98 03/26/24 20:47 Oxygen Delivery Room Air 03/26/24 20:47 Discharge Plan Discharge Patient Language: Serbian Prescriptions: No Action omeprazole magnesium [Prilosec OTC] 20 mg Tablet,Delayed Release (Dr/Ec) 20 mg PO DAILY lisinopril 40 mg tablet 40 mg PO DAILY olanzapine 10 mg tablet 10 mg PO HS tramadol 50 mg tablet 50 mg PO Q6H PRN (Reason: pain) Qty: 15 0RF nitrofurantoin monohyd/m-cryst [Macrobid] 100 mg capsule 100 mg PO Q12H 7 Days Qty: 14 0RF Rx Instructions: must administer with a meal/food magnesium oxide 400 mg magnesium tablet 400 mg PO DAILY Qty: 10 0RF fluoxetine [Prozac] 40 mg capsule 20 mg PO BID atorvastatin 40 mg tablet 60 mg PO DAILY metformin 500 mg tablet extended release 24 hr 500 mg PO BID topiramate 50 mg tablet 50 mg PO DAILY prednisone 20 mg tablet 20 mg PO DAILY 5 Days Qty: 5 0RF cyclobenzaprine 10 mg tablet 10 mg PO TID PRN (Reason: muscle spasm) Qty: 14 0RF multivitamin with minerals Tablet 1 tablet PO DAILY alprazolam 1 mg tablet 1 mg PO DAILY PRN (Reason: Anxiety) Qty: 1 0RF albuterol sulfate 90 mcg/actuation HFA aerosol inhaler 2 puff INHALATION Q4H PRN (Reason: Wheezing) Qty: 1 0RF Follow-up/Referrals: UNKNOWN,DOCTOR [Primary Care Provider] -
--- OUTSIDE RECORDS SUMMARY | 2024-03-26 21:14 | XMS_ITS | Clinical Summary ---
Author Organization [facility] Address [address] [place] [address] Care Team Providers Care Ladies' Locker Room Attendant Name Role Phone Rhianna Shepard Primary Care Provider [phone] Social History Tobacco Use Types Packs/Day Years [...] to Health Maintenance Insurance [employer] Care Teams Ladies' Locker Room Attendant Relationship Specialty Start Date End Date Rhianna Shepard PA [address] [place] [address] PCP - General PHYSICIAN CARRIAGE OPERATOR 11/18/19
--- OUTSIDE RECORDS SUMMARY | 2024-03-26 21:14 | XMS_ITS | Clinical Summary ---
Author Organization [facility] Address [address] [facility], [place] [address] Phone Care Team Providers Care Warehouse Packer Name Role Phone Rhianna Shepard Primary Care [...] Insurance [employer]ID [employer] Care Teams Warehouse Packer Relationship Specialty Start Date End Date Rhianna Shepard PAC [address] [place], [place] [phone] PCP - General Advanced Practice Nurse 07/02/23
--- OUTSIDE RECORDS SUMMARY | 2024-03-26 21:14 | XMS_ITS | Encounter Summary ---
Author Organization [facility] Address [address] [place] [address] Care Team Providers Care Mine Utility Operator Name Role Phone Rhianna Shepard Primary Care Provider [phone] Encounter Details Date Type Department Care Team (Late st Contact Info) Description 07/13/2018 Abstract SFL CONVERSION [address] [place] [address] , Generic Conversion, Social History Tobacco Use [...] on filedocumented in this encounter Care Teams Mine Utility Operator Relationship Specialty Start Date End Date Rhianna Shepard PA [address] [place] [address] PCP - General PHYSICIAN CORPORATE LIBRARIAN 11/18/19 documented as of this encounter
--- NOTE | 2024-03-26 21:15 | ED_ITS ---
HPI - Abdominal Pain General Chief Complaint: Chest Pain Stated Complaint: chest pain Time Seen by Provider: 03/26/24 20:48 Source: patient Mode of arrival: ambulatory Limitations: no limitations History of Present Illness HPI narrative: 58 year female with a history of depression, sciatica, dyslipidemia, diabetes mellitus, hypertension, CHF, asthma, status post cholecystectomy, Renal cysts, hiatal hernia, constipation presents to the ED with a 4 day history of -- epigastric/left upper quadrant abdominal pain. The pain comes on unprovoked, stays for half an hour and resolves spontaneously. Over the past 24 hours the pain has been persistent. No nausea/ vomiting. No diarrhea. No fever. she has had prior episodes of abdominal pain and has had extensive workup MD elicited complaint: abdominal pain Pertinent past history: constipation and other ( Status post cholecystectomy) Onset (ago): day(s) ( 4 days) Pain Consistency: intermittent Location: epigastric and LUQ Severity: severe Quality: aching Radiation: none Migration to: no migration Exacerbating factors: nothing Relieving factors: nothing Associated symptoms: nausea Related Data Patient : No Home Medications ?Medication ?Instructions ?Recorded ?Confirmed ?Last Taken ?Type omeprazole magnesium 20 mg 20 mg PO DAILY 04/13/19 12/31/23 11/13/23 History tablet,delayed release (Prilosec OTC) atorvastatin 40 mg tablet 60 mg PO DAILY 06/01/21 12/31/23 11/13/23 History fluoxetine 40 mg capsule (Prozac) 20 mg PO BID 06/01/21 12/31/23 11/13/23 History multivitamin with minerals 1 tablet PO DAILY 12/01/21 12/31/23 11/13/23 History lisinopril 40 mg tablet 40 mg PO DAILY 10/31/22 12/31/23 11/13/23 History olanzapine 10 mg tablet 10 mg PO HS 11/17/22 12/31/23 11/13/23 History metformin 500 mg tablet,extended 500 mg PO BID 09/28/23 12/31/23 11/13/23 History release 24 hr topiramate 50 mg tablet 50 mg PO DAILY 09/28/23 12/31/23 11/13/23 History Allergies Allergy/AdvReac Type Severity Reaction Status Date / Time No Known Allergies Allergy Unknown Verified 03/26/24 22:00 Review of Systems 2 Review of Systems: All systems reviewed & are unremarkable except as noted in HPI and below Constitutional: Constitutional: Reports as per HPI and Reports no additional constitutional complaints Eyes: Eyes: Reports as per HPI and Reports no additional eye complaints ENT: Reports system reviewed and no additional complaints, except as documented and Reports as per HPI Cardiovascular: Cardiovascular: Reports as per HPI and Reports no additional cardiovascular complaints Respiratory: Respiratory: Reports as per HPI and Reports no additional respiratory complaints Gastrointestinal: Gastrointestinal: Reports as per HPI and Reports abdominal pain Comments: epigastric and left upper quadrant abdominal pain Genitourinary: Genitourinary: Reports no additional female genitourinary complaints and Reports as per HPI Musculoskeletal: Musculoskeletal: Reports no additional musculoskeletal complaints and Reports as per HPI Integumentary/Breasts: Skin/Breast: Reports system reviewed and no additional complaints, except as docu and Reports as per HPI Neurologic: Reports system reviewed and no additional complaints, except as documented and Reports as per HPI Psychiatric: Psychiatric: Reports no additional psychiatric complaints and Reports as per HPI Endocrine: Endocrine: Reports no additional endocrine complaints and Reports as per HPI Hematologic/Lymphatic: Hematologic/Lymphatic: Reports no additional hematologic/lymphatic complaints and Reports as per HPI Allergic/Immunologic: Allergic/Immunologic: Reports no additional allergic/immunologic complaints and Reports as per HPI PMFSH Past Medical History Medical History Insect bite Hx MRSA infection Congestive heart failure Hypertension COPD (chronic obstructive pulmonary disease) Asthma Anxiety Depression Surgical History Surgical History History of incision and drainage Several areas to left forearm History of cholecystectomy History of hysterectomy History of tubal ligation Family History Family History Father Heart disease Mother , Mother at age 60. Diabetes mellitus Sibling Rheumatoid arthritis Has RA in her hands, sees engineering supervisor. Social History Social History Social History: The patient is but lives with her boyfriend now and her daughter and granddaughter. The patient has 2 children. She denies any alcohol or any other illicit drugs. The patient works in the [employer]. And she is a former smoker. She does not have a durable power mergers and acquisitions attorney for healthcare. Code status full code Smoking packs per day: 1.5 Smoking cigarettes per day: 30.0 Years smoked: 30 Smoking pack-years: 45.00 Smoking status: Former smoker Tobacco type: cigarettes Second hand tobacco smoke exposure: Yes Alcohol intake: never Substance use: never Substance use type: does not use Lack of Transportation: No Lack of Food: Sometimes True Current Housing: I Have Housing Concerned About Future Housing: No Difficulty Paying Gas/Electric Bills: No Difficulty Paying for Meds: No Currently Unemployed: No Education: High School Diploma/GED Difficulty w/ Childcare or Family Care: No Spiritual care concerns: No Exam 2 Narrative: afebrile. Temperature 36.6? with an oxygen saturation of 98% Const: General: no acute distress Nutritional Appearance: obese O rientation/consciousness: patient oriented x3 Limitations: no limitations HENMT: Head: normal to inspection Ears: external ears normal F augustine/Nose/Sinus: Normal external nose present Face and sinus: normal facial exam Mouth: Yes Normal oral and palatal mucosa present Throat: posterior oropharynx normal Eyes: Conjunctivae: conjunctivae normal Pupils: Equal, round and reactive pupils present EOM: EOMs intact bilaterally Direct Ophthalmoscopy: no photophobia Neck: Neck: normal visual inspection, no lymphadenopathy and no meningeal signs Chest: Chest palpation & inspection: normal inspection of the chest Resp: Effort & Inspection: normal respiratory effort Auscultation: clear to auscultation bilaterally Cardio: Rate: regular rate Rhythm: regular rhythm GI: GI Palp: Yes Soft to palpation Auscultation: normal bowel sounds O ther: Tenderness in the epigastric region in the left upper quadrant of the abdomen. No rigidity /rebound. : General: Yes no CVA tenderness Back/Spine/Pelvis: Back: no CVA tenderness Cervical Spine: collar present Skin: General skin exam: normal color Rashes: no rashes Wounds: no wounds Neuro: General: patient oriented x3, moves all extremities, no meningeal signs, no focal motor deficits and CN's II-XI intact bilaterally Cranial nerves: Yes Nystagmus not present Speech: normal speech Extrem: General: normal to inspection and no clubbing, cyanosis or edema Psych: Mental Status: mental status grossly normal Affect: normal affect Attitude: cooperative Course Course Emergency Course: Left upper quadrant / epigastric abdominal pain-- Patient is afebrile with a normal white cell count. Abdominal examination does not show any evidence of an acute abdomen. Patient had a normal troponin. EKG did not show any acute findings. urinary tract infection Vital Signs Vital signs: Vital Signs Temperature 36.6 C 03/26/24 20:47 Pulse Rate 81 03/26/24 20:47 Respiratory Rate 20 03/26/24 20:47 Blood Pressure 152/80 H 03/26/24 20:47 Pulse Oximetry 98 03/26/24 20:47 Oxygen Delivery Room Air 03/26/24 20:47 Temperature 36.6 C 03/26/24 20:47 Pulse Rate 81 03/26/24 20:47 Respiratory Rate 20 03/26/24 20:47 Blood Pressure 152/80 H 03/26/24 20:47 Pulse Oximetry 98 03/26/24 20:47 Oxygen Delivery Room Air 03/26/24 20:47 MDM - Abdominal Pain MDM Narrative Medical decision making narrative: Abdominal pain urinary tract infection Differential Diagnosis Differential diagnosis: Likely calculus of kidney Medical Records Attestation: I reviewed the patient's medical records. Lab Data Attestation: I reviewed the patient's lab results. 03/26/24 21:38 03/26/24 21:38 Labs: Lab Results 03/26/24 03/27/24 Range/Units 21:38 00:04 WBC 7.1 (4.8-10.8) K/mm3 RBC 4.48 (4.20-5.40) M/mm3 Hgb 12.5 (12.0-15.0) g/dL Hct 39.3 (35.0-49.0) % MCV 87.7 (78.0-102.0) fL MCH 27.9 (27.0-31.0) pg MCHC 31.8 L (32-36) g/dL RDW 13.6 (11.6-14.4) % Plt Count 292 (150-420) K/mm3 MPV 10.2 (9.2-11.8) fl Immature Gran % (Auto) 0.1 H (0.0-0.0) % Neut % (Auto) 54.5 (50.0-70.0) % Lymph % (Auto) 36.3 (18.0-42.0) % [place] % (Auto) 5.9 (2.0-11.0) % Eos % (Auto) 2.8 (1.0-6.0) % Baso % (Auto) 0.4 (0.0-1.0) % Lymph # (Auto) 2.59 (1.10-4.50) K/mm3 [place] # (Auto) 0.42 (0.10-0.90) K/mm3 Eos # (Auto) 0.20 (0.02-0.50) K/mm3 Baso # (Auto) 0.03 (0.00-0.10) K/mm3 Abs Immat Gran (auto) 0.01 H (0.00-0.00) K/mm3 Absolute Neuts (auto) 3.88 (1.70-7.20) K/mm3 Absolute Nucleated RBC 0.00 (0.00-0.00) K/mm3 Nucleated RBC % 0.0 (0-0.0) % PT 9.9 (9.50-12.1) Seconds INR 0.9 Sodium 141 (136-145) mmol/L Potassium 3.6 (3.5-5.1) mmol/L Chloride 105 (98-108) mmol/L Carbon Dioxide 23 (21-32) mmol/L Anion Gap 13 H (4-12) mmol/L BUN 8 (7-18) mg/dL Creatinine 0.67 (0.55-1.02) mg/dL Estim Creat Clear Calc 106 ml/min Estimated GFR > 60 (59 - ) Glucose 129 H (70-99) mg/dL Calculated Osmolality 292 (285-295) mOsm/kg Lactic Acid 1.7 (0.4-2.0) mmol/L Calcium 8.9 (8.5-10.1) mg/dL Total Bilirubin 0.2 (0.00-1.00) mg/dL Direct Bilirubin < 0.1 (0-0.2) mg/dL AST 11 L (15-37) U/L ALT 24 (14-59) U/L Alkaline Phosphatase 154 H (46-116) U/L Troponin I < 4.0 (0.00-60.4) ng/L Total Protein 6.9 (6.4-8.2) g/dL Albumin 3.3 L (3.4-5.0) g/dL Lipase 30 (16-77) U/L Urine Color Light yellow (Yellow) Urine Appearance Clear (Clear) Urine pH 6.0 (5.0-8.0) Ur Specific Cross <= 1.005 L (1.010-1.020) Urine Protein Negative (Negative) Urine Glucose (UA) Negative (Negative) Urine Ketones Negative (Negative) Ur Blood (Man) Negative (Negative) Urine Nitrate Negative (Negative) Urine Bilirubin Negative (Negative) Urine Urobilinogen 0.2 (0.2-1.0) mg/dL Leukocyte Esterase Rfl 2+ H (Negative) ANDREE/UL Urine RBC 0-2 (0-2) /hpf Urine WBC 10-15 H (0-3) /hpf Ur Squamous Epith Cells Few (Few) /hpf Urine Bacteria 1+ H (None) /hpf Discharge Plan Discharge Clinical Impression: Abdominal pain Qualifiers: Abdominal location: epigastric Qualified Code(s): R10.13 - Epigastric pain Urinary tract infection Qualifiers: Urinary tract infection type: site unspecified Hematuria presence: without hematuria Qualified Code(s): N39.0 - Urinary tract infection, site not specified Patient Disposition: Home, Self-Care Condition: Stable Instructions: Antibiotic Form, Urinary Tract Infection in Women (ED), Abdominal Pain (ED) Patient Language: Guyanese Prescriptions: New ciprofloxacin HCl [Cipro] 250 mg tablet 250 mg PO Q12H Qty: 10 0RF No Action omeprazole magnesium [Prilosec OTC] 20 mg Tablet,Delayed Release (Dr/Ec) 20 mg PO DAILY lisinopril 40 mg tablet 40 mg PO DAILY olanzapine 10 mg tablet 10 mg PO HS tramadol 50 mg tablet 50 mg PO Q6H PRN (Reason: pain) Qty: 15 0RF nitrofurantoin monohyd/m-cryst [Macrobid] 100 mg capsule 100 mg PO Q12H 7 Days Qty: 14 0RF Rx Instructions: must administer with a meal/food magnesium oxide 400 mg magnesium tablet 400 mg PO DAILY Qty: 10 0RF fluoxetine [Prozac] 40 mg capsule 20 mg PO BID atorvastatin 40 mg tablet 60 mg PO DAILY metformin 500 mg tablet extended release 24 hr 500 mg PO BID topiramate 50 mg tablet 50 mg PO DAILY prednisone 20 mg tablet 20 mg PO DAILY 5 Days Qty: 5 0RF cyclobenzaprine 10 mg tablet 10 mg PO TID PRN (Reason: muscle spasm) Qty: 14 0RF multivitamin with minerals Tablet 1 tablet PO DAILY alprazolam 1 mg tablet 1 mg PO DAILY PRN (Reason: Anxiety) Qty: 1 0RF albuterol sulfate 90 mcg/actuation HFA aerosol inhaler 2 puff INHALATION Q4H PRN (Reason: Wheezing) Qty: 1 0RF Follow-up/Referrals: UNKNOWN,DOCTOR [Non-Staff] - Time of Disposition: 00:59
[2024-03-26 21:50] LABS: Basophils Absolute Auto 0.03 K/mm3 (0.00-0.10); Basophils Percent Auto 0.4 % (0.0-1.0); Eosinophils Percent Auto 2.8 % (1.0-6.0); Hematocrit 39.3 % (35.0-49.0); Hemoglobin 12.5 g/dL (12.0-15.0); Immature Granulocyte Absolute 0.01 K/mm3 (0.00-0.00); Immature Granulocyte Percent A 0.1 % (0.0-0.0); Lymphocytes Absolute Auto 2.59 K/mm3 (1.10-4.50); Lymphocytes Percent Auto 36.3 % (18.0-42.0); Mean Corpuscular HGB Conc 31.8 g/dL (32-36); Mean Corpuscular Hemoglobin 27.9 pg (27.0-31.0); Mean Corpuscular Volume 87.7 fL (78.0-102.0); Mean Platelet Volume 10.2 fl (9.2-11.8); Monocytes Absolute Auto 0.42 K/mm3 (0.10-0.90); Monocytes Percent Auto 5.9 % (2.0-11.0); Neutrophils Absolute Auto 3.88 K/mm3 (1.70-7.20); Neutrophils Percent Auto 54.5 % (50.0-70.0); Platelet Count Result 292 K/mm3 (150-420); Red Blood Count 4.48 M/mm3 (4.20-5.40); Red Cell Distribution Width 13.6 % (11.6-14.4); White Blood Count 7.1 K/mm3 (4.8-10.8)
[2024-03-26] MEDS: PROCHLORPERAZINE EDISYLATE 10 MG/2 ML VIAL IM (22:01)
[2024-03-26] MEDS: HYDROmorphone HCL INJ (*CRX) 2 MG/ML VIAL 0.5 MG IM (22:02)
[2024-03-26 22:05] LABS: INR 0.9; Prothrombin Time 9.9 Seconds (9.50-12.1)
--- NOTE | 2024-03-26 22:07 | PC.NURSE ---
patient medicated per order, see MAR. patient awake and alert sitting upright in ED 5 wihout distress. given drink per request. sig other at bedside.
[2024-03-26 22:10] LABS: Alanine Aminotransferase 24 U/L (14-59); Albumin Level 3.3 g/dL (3.4-5.0); Alkaline Phosphatase 154 U/L (46-116); Anion Gap 13 mmol/L (4-12); Aspartate Amino Transferase 11 U/L (15-37); Bilirubin Direct < 0.1 mg/dL (0-0.2); Bilirubin,Total 0.2 mg/dL (0.00-1.00); Blood Urea Nitrogen 8 mg/dL (7-18); Calcium 8.9 mg/dL (8.5-10.1); Carbon Dioxide 23 mmol/L (21-32); Chloride 105 mmol/L (98-108); Estimated CRCL calculation 106 ml/min; Estimated Glomerular Filt Rate > 60; Glucose 129 mg/dL (70-99); Lactic Acid Reflex 1.7 mmol/L (0.4-2.0); Lipase 30 U/L (16-77); Osmolality Calculated 292 mOsm/kg (285-295); Potassium 3.6 mmol/L (3.5-5.1); Sodium 141 mmol/L (136-145); Total Protein 6.9 g/dL (6.4-8.2)
[2024-03-26 22:16] LABS: Troponin I < 4.0 ng/L (0.00-60.4)
--- NOTE | 2024-03-26 22:25 | PC.NURSE ---
patient to ED 6 from ED 5 as all other ED rooms full upon patient arrival; patient connected to monitor tech, o2 sensor and bp cuff once arrived to ED 6. RN monitoring. call light within reach. visitor remains at bedside.
--- NOTE | 2024-03-26 23:45 | PC.NURSE ---
patient awake and alert, given warm blanket for comfort. denies further needs. update provided.
[2024-03-27] VITALS (9 sets, daily range): BP systolic 109–126; BP diastolic 58–73; PULSE 65–77; RESP 13–19; TEMP 36.3; O2SAT 94–98
--- NOTE | 2024-03-27 00:01 | PC.NURSE ---
patient ambulatory to bathroom per husbandry technician. urine collected and sent to lab for analysis per husbandry technician.
[2024-03-27 00:17] LABS: Add Urine Microscopic? YES; Appearance Urine Clear (Clear); Bilirubin Urine Negative (Negative); Blood Urine Negative (Negative); Color Urine Light Yellow (Yellow); Glucose Urine UA Negative (Negative); Ketones Urine Negative (Negative); Leukocyte Esterase Ur 2+ LEU/UL (Negative); Nitrate Urine Negative (Negative); Protein Urine Negative (Negative); Specific Grav Ur <= 1.005 (1.010-1.020); Urobilinogen Urine 0.2 mg/dL (0.2-1.0)
[2024-03-27 00:21] LABS: RBC Urine 0-2 /hpf (0-2)
[2024-03-27 00:22] LABS: Bacteria Urine 1+ /hpf; Squamous Epithelial Cell Urine Few /hpf (Few)
--- NOTE | 2024-03-27 00:41 | PC.NURSE ---
patient resting on stretcher comfortabl
--- NOTE | 2024-03-27 00:57 | PC.NURSE ---
JUANA Zuñiga at patient bedside for update of results and plan of care.
[2024-03-27] MEDS: HYDROcodone/acetaminophen (*CRX) 5-325 MG TABLET 1 TAB PO (01:26)
[2024-03-27] MEDS: CIPROFLOXACIN 250 MG TABLET PO (01:26)
--- NOTE | 2024-03-27 01:26 | PC.NURSE ---
patient medicated per order, sitting upright on stretcher with sig other at bedside. pt awaiting DC post director of medical review.
--- NOTE | 2024-03-29 12:14 | PC.NURSE ---
final urine culture reviewed, no growth
== END 2024-03-27 01:48 | disposition home or self-care (01) ==
PROVIDERS: Emergency Provider Internal Medicine Critical Care Medicine; PCP Nurse Practitioner Family
DX: N39.0 Urinary tract infection, site not specified (principal); R10.13 Epigastric pain; E11.9 Type 2 diabetes mellitus without complications; I11.0 Hypertensive heart disease with heart failure; I50.9 Heart failure, unspecified; J44.9 Chronic obstructive pulmonary disease, unspecified; Z90.49 Acquired absence of other specified parts of digestive tract; Z87.891 Personal history of nicotine dependence
CPT/HCPCS: 36415; 80048; 80076; 81001; 83605; 83690; 84484; 85025; 85610; 87086; 93005; 96372; 99284; A9270; J0780; J1171

== ENCOUNTER 2024-04-22 01:31 | Emergency (ER) | payer OTHER, SELFPAY ==
--- NOTE | ~2024-04-22 | CT_ITS ---
Non-contrast CT scan of the Abdomen and Pelvis Clinical indication: Abdominal pain Technique: 2.5 mm axial scans were obtained through the abdomen and pelvis without intravenous or or al contrast. Dose reduction technique was used on this scan by utilizing automated exposure control a nd iterative reconstruction technique. The dose-length product (DLP) was 1559.49 mGy-cm. COMPARISON: 09/28/2023 Findings: Images through the lung bases reveal no abnormalities. There is no evidence of renal or ureteral calculi. The kidneys and the ureters are nondilated. The liver, spleen, pancreas, and adrenals appear normal. Cholecystectomy clips are present. There are atherosclerotic calcifications of the aorta. . There is no evidence of bowel obstruction. Small fat-containing umbilical hernia present. Prominent s tool suggests constipation. Images through the pelvis were performed. There is no evidence of ascites or lymphadenopathy. Urinary bladder unremarkable. Status post hysterectomy. No pelvic mass seen. Impression: No acute abnormality. Constipation. Small fat-containing umbilical hernia. Reviewed, dictated and finalized at location . Impression: No acute abnormality. Constipation. Small fat-containing umbilical hernia.
[2024-04-22 01:32] VITALS: BP 142/72; PULSE 99; RESP 18; TEMP 36.3; O2SAT 94
--- OUTSIDE RECORDS SUMMARY | 2024-04-22 01:33 | XMS_ITS | Encounter Summary ---
Author Organization [facility] Address [address] [place] [address] Care Team Providers Care Child Care Development Specialist Name Role Phone Rhianna Shepard Primary Care Provider [phone] Encounter Details Date Type Department Care Team (Late st Contact Info) Description 07/13/2018 Abstract [facility] CONVERSION [address] [place] [address] , Generic Conversion, Social History Tobacco Use [...] on filedocumented in this encounter Care Teams Child Care Development Specialist Relationship Specialty Start Date End Date Rhianna Shepard PA [address] [place] [address] PCP - General PHYSICIAN VP PUBLISHER DEVELOPMENT 11/18/19 documented as of this encounter
--- OUTSIDE RECORDS SUMMARY | 2024-04-22 01:33 | XMS_ITS | Clinical Summary ---
Author Organization [facility] Address [address] [place] [id number] Care Team Providers Care Floor Tiling Professional Name Role Phone Rhianna Shepard Primary Care Provider [phone] Social History Tobacco Use Types Packs/Day Years [...] to Health Maintenance Insurance [employer] Care Teams Floor Tiling Professional Relationship Specialty Start Date End Date Rhianna Shepard PA [address] [place] [address] PCP - General PHYSICIAN SACK SEWER 11/18/19
--- OUTSIDE RECORDS SUMMARY | 2024-04-22 01:33 | XMS_ITS | Clinical Summary ---
Author Organization [facility] Address [address] [facility], [place] [address] Phone Care Team Providers Care Real Estate Instructor Name Role Phone Rhianna Shepard Primary Care [...] hypertension 11/01/2016 JACOB (obstructive sleep apnea) 11/01/2016 Encounters Date Type Department Care Team Description 04/07/2024 Telephone [facility] [address] [place] [address] Suha Herrera Patient Outreach 04/05/2024 6:12 PM OIL WELL LOGGER - 04/05/2024 10:05 PM OIL WELL LOGGER Emergency [facility] [address] [place] [address] Rafa Ramsey, DANCE CRITIC, ROOF TILE LAYER UTI (urinary tract infection) Discharge Disposition: Discharged to home or Selfcare 04/05/2024 Travel from Last 3 Months Family History Medical History Relation Name Comments [...] Sign Reading Time Taken Comments Blood Pressure 97/57 04/05/2024 10:00 PM OIL WELL LOGGER Pulse 71 04/05/2024 9:45 PM OIL WELL LOGGER Temperature 36.5 C (97.7 F) 04/05/2024 6:17 PM OIL WELL LOGGER Respiratory Rate 14 04/05/2024 8:14 PM OIL WELL LOGGER Oxygen Saturation 93% 04/05/2024 10:00 PM OIL WELL LOGGER Inhaled Oxygen Concentration - - Weight 124.2 kg (273 lb 13 oz) 04/05/2024 6:17 P M OIL WELL LOGGER Height 182.9 cm (6') 04/05/2024 6:17 PM OIL WELL LOGGER Body Mass Index 37.14 04/05/2024 6:17 PM OIL WELL LOGGER Plan of Treatment Health Maintenance Due Date Last Done Comments Hepatitis C Virus (HCV) Screening 1966 Hepatitis B Immunization (1 of 3 - 19+ 3-dose series) 1985 Colonoscopy 05/03/2011 Colorectal Cancer Screening 05/03/2011 Cologuard 2016 Immunochemical Fecal Occult Blood 2016 Zoster Immunization (1 of 2) 2016 Mammogram 11/17/2020 11/18/2019, 11/18/2019 Respiratory Syncytial Virus (RSV) Immunization (Adult) (1 - 1-dose 75+ series) 2041 DTaP/Tdap/Td Immunization Discontinued 12/07/2023, 08/2022 TdaP Immunization Completed 12/07/2023, 03/14/2022 Influenza Immunization Completed , 02/17/2023, 11/01/2018 Pneumococcal Immunization (50+ years) Completed 01/09/2024 Pneumococcal Immunization Combined Discontinued 01/09/2024 SARS-COV-2 Immunization Completed 01/09/20 24, 02/09/2021, 06/29/2020, Additional history exists Meningococcal Immunization (ACWY) Aged Out No longer eligible based on patient's age to complete this topic Rotavirus Immunization Aged Out No lo nger eligible based on patient's age to complete this topic Procedures Procedure Name Priority Date/Time Associated Diagnosis Comments CT ABDOMEN PELVIS W/ CONTRAST Stat with Interpretation 04/05/2024 8:46 PM OIL WELL LOGGER XR CHEST 2 VIEWS STAT 04/05/2024 8:27 PM OIL WELL LOGGER CBC WITH AUTO DIFFERENTIAL STAT 04/05/2024 7:37 PM OIL WELL LOGGER LIPASE STAT 04/05/2024 7:37 PM OIL WELL LOGGER TROPONIN I, HIGH SENSITIVITY (HSTRP) STAT 04/05/2024 7:37 PM OIL WELL LOGGER CMP (COMPREHENSIVE METABOLIC PANEL) STAT 04/05/2024 7:37 PM OIL WELL LOGGER COMPLETE BLOOD COUNT (CBC) WITH DIFF STAT 04/05/2024 7:37 PM OIL WELL LOGGER URINALYSIS REFLEX IF INDICATED BY ABNORMAL RESULTS STAT 04/05/2024 7:31 PM OIL WELL LOGGER CULTURE, URINE STAT 04/05/2024 7:31 PM OIL WELL LOGGER RSV,SARS-COV-2,INF LUENZA A&B BY PCR STAT 04/05/2024 6:48 PM OIL WELL LOGGER EKG 12 LEAD STAT 04/05/2024 6:11 PM OIL WELL LOGGER EKG SCAN 04/05/2024 12:00 AM OIL WELL LOGGER from Last 3 Months Results * CT ABDOMEN PELVIS W/ CONTRAST (04/05/2024 8:46 PM OIL WELL LOGGER) Anatomical Region Laterality Modality Abdomen N/A Computed Tomogra phy 04/05/2024 9:29 PM OIL WELL LOGGER Impressions 04/05/2024 9:31 PM OIL WELL LOGGER IMPRESSION: No acute process is seen. No findings are seen to explain the patient's symptoms. Narrative 04/05/2024 9:31 PM OIL WELL LOGGER EXAM DESCRIPTION: CT ABDOMEN PELVIS W/ CONTRAST REASON FOR STUDY: Left sided abdominal pain x 1 week UTI x 2 weeks- Hx HTN, diabetic, ex smoker, cholecystectomy, appendectomy- creat 0.80- EGFR >60- ISOVUE 370 100mL via left wrist 22g @ 2041 TECHNIQUE: CT scan of the abdomen and pelvis performed with intravenous and without oral contrast using helical scanning technique with dynamic intravenous contrast injection. Reconstructed coronal and sagittal MPR images reviewed. All images stored on PACS. Automated exposure control was used as a dose optimization technique for this examination. CONTRAST TYPE/DOSE: 100mL of IOPAMIDOL 76 % IV SOLN injected via Intravenous COMPARISON: None FINDINGS: LOWER CHEST: No significant pulmonary abnormalities. No effusion. LIVER: Normal size. No identified cystic or solid masses. GALLBLADDER: Removed BILE DUCTS: No intrahepatic or extrahepatic ductal dilatation. SPLEEN: Normal size. No focal lesions. PANCREAS: No identified cystic or solid masses. No significant calcifications. No adjacent inflammation or peripancreatic fluid collections. Pancreatic duct not dilated. ADRENALS: Normal. KIDNEYS/URINARY TRACT: No identified significant cystic or solid masses. No visualized stones. No hydronephrosis or hydroureter. Symmetric enhancement. Urinary bladder is unremarkable. GI: No dilated bowel loops. No obvious wall thickening. Normal appendix. No significant diverticular disease. PERITONEUM: No ascites or free air. RETROPERITONEUM: No mass or adenopathy. REPRODUCTIVE: No significant abnormality. VASCULATURE: No abdominal aortic aneurysm. MUSCULOSKELETAL: No significant abnormality. OTHER: No other abnormality. THIS IS AN ELECTRONICALLY VERIFIED FINAL REPORT 04/05/2024 9:29 PM - Electronically signed by Jitendra Miller M.D. KH: ANAYELI Report ID: [id number] Reading Location: [id number] Procedure Note Jitendra Miller MD - 04/05/2024 EXAM DESCRIPTION: CT ABDOMEN PELVIS W/ CONTRAST REASON FOR STUDY: Left sided abdominal pain x 1 week UTI x 2 weeks- Hx HTN, diabetic, ex smoker, cholecystectomy, appendectomy- creat 0.80- EGFR >60- ISOVUE 370 100mL via left wrist 22g @ 2 TECHNIQUE: CT scan of the abdomen and pelvis performed with intravenous and without oral contrast using helical scanning technique with dynamic intravenous contrast injection. Reconstructed coronal and sagittal MPR images reviewed. All images stored on PACS. Automated exposure control was used as a dose optimization technique for this examination. CONTRAST TYPE/DOSE: 100mL of IOPAMIDOL 76 % IV SOLN injected via Intravenous COMPARISON: None FINDINGS: LOWER CHEST: No significant pulmonary abnormalities. No effusion. LIVER: Normal size. No identified cystic or solid masses. GALLBLADDER: Removed BILE DUCTS: No intrahepatic or extrahepatic ductal dilatation. SPLEEN: Normal size. No focal lesions. PANCREAS: No identified cystic or solid masses. No significant calcifications. No adjacent inflammation or peripancreatic fluid collections. Pancreatic duct not dilated. ADRENALS: Normal. KIDNEYS/URINARY TRACT: No identified significant cystic or solid masses. No visualized stones. No hydronephrosis or hydroureter. Symmetric enhancement. Urinary bladder is unremarkable. GI: No dilated bowel loops. No obvious wall thickening. Normal appendix. No significant diverticular disease. PERITONEUM: No ascites or free air. RETROPERITONEUM: No mass or adenopathy. REPRODUCTIVE: No significant abnormality. VASCULATURE: No abdominal aortic aneurysm. MUSCULOSKELETAL: No significant abnormality. OTHER: No other abnormality. THIS IS AN ELECTRONICALLY VERIFIED FINAL REPORT 04/05/2024 9:29 PM - Electronically signed by Jitendra GUADALUPE: ANAYELI Report ID: [id number] Reading Location: [id number] IMPRESSION: No acute process is seen. No findings are seen to explain the patient's symptoms. us Rafa Ramsey DANCE CRITIC, ROOF TILE LAYER IMG CT ORDERABLES Final Result * XR CHEST 2 VIEWS (04/05/2024 8:27 PM OIL WELL LOGGER) Anatomical Region Laterality Modality Chest N/A Digital Radiogra phy 04/05/2024 8:49 PM OIL WELL LOGGER Impressions 04/05/2024 8:52 PM OIL WELL LOGGER IMPRESSION: No acute cardiopulmonary abnormality. Narrative 04/05/2024 8:52 PM OIL WELL LOGGER EXAM DESCRIPTION: XR CHEST 2 VIEWS REASON FOR STUDY: Left sided chest pain and shortness of breath, dizziness today- current UTI and Left abdominal pain x1 week- Hx HTN, diabetic, ex smoker TECHNIQUE: 2 radiographic view(s) of the chest. COMPARISON: 07/02/2023 FINDINGS: LUNGS: Allowing for overlying soft tissues, the lungs appear grossly clear. No consolidation or effusion is seen. HEART/MEDIASTINUM: Cardiac silhouette normal in size. Mediastinal and hilar contours appear normal. LINES/TUBES: None. BONES: No acute osseous abnormality. THIS IS AN ELECTRONICALLY VERIFIED FINAL REPORT 04/05/2024 8:49 PM - Electronically signed by Jitendra GUADALUPE: ANAYELI Report ID: [id number] Reading Location: [id number] Procedure Note Jitendra Miller MD - 04/05/2024 EXAM DESCRIPTION: XR CHEST 2 VIEWS REASON FOR STUDY: Left sided chest pain and shortness of breath, dizziness today- current UTI and Left abdominal pain x1 week- Hx HTN, diabetic, ex smoker TECHNIQUE: 2 radiographic view(s) of the chest. COMPARISON: 07/02/2023 FINDINGS: LUNGS: Allowing for overlying soft tissues, the lungs appear grossly clear. No consolidation or effusion is seen. HEART/MEDIASTINUM: Cardiac silhouette normal in size. Mediastinal and hilar contours appear normal. LINES/TUBES: None. BONES: No acute osseous abnormality. THIS IS AN ELECTRONICALLY VERIFIED FINAL REPORT 04/05/2024 8:49 PM - Electronically signed by Jitendra Miller M.D. KH: ANAYELI Report ID: [id number] Reading Location: [place] [id number] IMPRESSION: No acute cardiopulmonary abnormality. Rafa Ramsey APRN, CNP IMG DIAGNOSTIC ORDERABL ES Final Result * TROPONIN I, HIGH SENSITIVITY (HSTRP) (04/05/2024 7:37 PM OIL WELL LOGGER) [facility] TROPONIN I, HIGH SENSITIVITY- [place] <3 <=14 ng/L 04/05/2024 8:04 PM OIL WELL LOGGER [facility] Comment: High-sensitivity troponin I results are reported in ng/L making the result appear to be 1,000 times higher than the contemporary troponin I value which is reported in ng/ml. Results from [place]. Blood Venipuncture / Unknown 04/05/2024 7:37 PM OIL WELL LOGGER 04/05/2024 7:37 PM OIL WELL LOGGER Rafa Ramsey APRN, CNP CHEMISTRY ORDERABLES Fi nal Result [facility] [address] [place] [address] * CBC with Auto Differential (04/05/2024 7:37 PM OIL WELL LOGGER) [facility] WBC 8.09 4.00 - 12.00 10(3)/mcL 04/05/2024 7:41 PM OIL WELL LOGGER [facility] RBC 4.43 3.80 - 5.30 10(6)/mcL 04/05/2024 7:41 PM [facility] HEMOGLOBIN (HGB) 12.4 12.0 - 15.8 g/dL 04/05/2024 7:41 PM [facility] HEMATOCRIT (HCT) 38.3 36.0 - 47.0 % 04/05/2024 7:41 PM [facility] MCV 86.5 82.0 - 96.0 fL 04/05/2024 7:41 PM [facility] MCH 28.0 26.0 - 34.0 pg 04/05/2024 7:41 PM [facility] MCHC 32.4 31.0 - 36.0 g/dL 04/05/2024 7:41 PM [facility] PLATELET COUNT 297 140 - 440 10(3)/mcL 04/05/2024 7:41 PM [facility] RDW 13.5 11.8 - 15.5 % 04/05/2024 7:41 PM [facility] MPV 10.4 9.7 - 12.4 fL 04/05/2024 7:41 PM [facility] NEUTROPHILS 60.0 47.0 - 73.0 % 04/05/2024 7:41 PM [facility] LYMPHOCYTES 30.0 18.0 - 42.0 % 04/05/2024 7:41 PM [facility] MONOCYTES 6.3 4.0 - 12.0 % 04/05/2024 7:41 PM [facility] EOSINOPHILS 3.5 0.0 - 5.0 % 04/05/2024 7:41 PM [facility] BASOPHILS 0.2 0.0 - 1.0 % 04/05/2024 7:41 PM [facility] ABSOLUTE NEUTROPHILS 4.85 1.60 - 7.70 10(3)/mcL 04/05/2024 7:41 PM [facility] ABSOLUTE LYMPHOCYTES 2.43 1.30 - 3.20 10(3)/mcL 04/05/2024 7:41 PM OIL WELL LOGGER [facility] ABSOLUTE MONOCYTES 0.51 0.20 - 1.00 10(3)/mcL 04/05/2024 7:41 PM OIL WELL LOGGER [facility] ABSOLUTE EOSINOPHIL 0.28 0.00 - 0.40 10(3)/mcL 04/05/2024 7:41 PM OIL WELL LOGGER [facility] ABSOLUTE BASOPHILS 0.02 0.00 - 0.10 10(3)/[facility] 04/05/2024 7:41 PM OIL WELL LOGGER [facility] NRBC PER 100 WBC 0 04/06/19 7:41 PM OIL WELL LOGGER [facility] Blood Venipuncture / Unknown 04/05/2024 7:37 PM OIL WELL LOGGER 04/05/2024 7:37 PM OIL WELL LOGGER Rafa Ramsey APRN, ROOF TILE LAYER HEMATOLOGY ORDERABLES F inal Result Performing Organization Address City/[facility]/ZIP Co de Phone Number [facility] [address] [place] [address] * Lipase [id number] (04/05/2024 7:37 PM OIL WELL LOGGER) Pathologist [facility] LIPASE 26 8 - 78 U/L 04/05/2024 8:01 PM OIL WELL LOGGER [facility] Blood Venipuncture / Unknown 04/05/2024 7:37 PM OIL WELL LOGGER 04/05/2024 7:37 PM OIL WELL LOGGER Rafa Ramsey APRN, ROOF TILE LAYER CHEMISTRY ORDERABLES Fi nal Result [facility] [address] [place] [address] * (ABNORMAL) Comprehensive Metabolic Panel (Cmp) [id number] (04/05/2024 7:37 PM OIL WELL LOGGER) SODIUM 140 136 - 145 mmol/L 04/05/2024 8:01 PM OIL WELL LOGGER [facility] POTASSIUM 3.8 3.5 - 5.1 mmol/L 04/05/2024 8:01 PM [facility] CHLORIDE 109(H) 98 - 107 mmol/L 04/05/2024 8:01 PM [facility] CO2, VENOUS 21(L) 22 - 30 mmol/L 04/05/2024 8:01 PM [facility] ANION GAP 13.8 <18.0 mmol/L 04/05/2024 8:01 PM [facility] GLUCOSE 106(H) 70 - 99 mg/dL 04/05/2024 8:01 PM [facility] BUN 11 10 - 20 mg/dL 04/05/2024 8:01 PM [facility] CREATININE, BLOOD 0.80 0.60 - 1.00 mg/dL 04/05/2024 8:01 PM [facility] BUN/CREATININE RATIO 14 12 - 20 ratio 04/05/2024 8:01 PM [facility] TOTAL PROTEIN 7.0 6.0 - 8.0 g/dL 04/05/2024 8:01 PM [facility] ALBUMIN 3.9 3.5 - 5.0 g/dL 04/05/2024 8:01 PM [facility] A/G RATIO 1.3 1.0 - 2.2 04/05/2024 8:01 PM [facility] CALCIUM 9.1 8.7 - 10.5 mg/dL 04/05/2024 8:01 PM [facility] T BILI 0.2 0.2 - 1.2 mg/dL 04/05/2024 8:01 PM [facility] SGOT (AST) 19 <43 U/L 04/05/2024 8:01 PM [facility] SGPT (ALT) 22 <56 U/L 04/05/2024 8:01 PM [facility] ALKALINE PHOSPHATASE 133 40 - 150 U/L 04/05/2024 8:01 PM [facility] GFR, ESTIMATED >60 >=60 04/05/2024 8:01 PM OIL WELL LOGGER [facility] Comment: Creatinine Clearance is the preferred criteria for selecting drug dose adjustments in renally impaired patients. The GFR is provided as additional pertinent clinical information. GFR is reported in mL/min/1.73 sq m. Calculation based on the Chronic Kidney Disease Epidemiology Collaboration (CKD- EPI) equation refit without adjustment for race. GFR, EST. >60 >=60 025 8:01 PM OIL WELL LOGGER [facility] GFR, EST. NONAFRICAN >60 >=60 04/05/2024 8:01 PM OIL WELL LOGGER [facility] Blood Venipuncture / Unknown 04/05/2024 7:37 PM OIL WELL LOGGER 04/05/2024 7:37 PM OIL WELL LOGGER us Rafa Ramsey APRN, ROOF TILE LAYER CHEMISTRY ORDERABLES Fi nal Result [facility] [address] [place] [address] * (ABNORMAL) URINALYSIS REFLEX IF INDICATED BY ABNORMAL RESULTS (04/05/2024 7:31 PM OIL WELL LOGGER) SPECIFIC GRAVITY 1.005 1.003 - 1.030 04/05/2024 7:58 PM OIL WELL LOGGER [facility] URINE PH 7.0 5.0 - 9.0 04/05/2024 7:58 PM OIL WELL LOGGER [facility] WBC ESTERASE 500 /uL(A) Negative 04/05/2024 7:58 PM OIL WELL LOGGER [facility] NITRITE Negative Negative 04/05/2024 7:58 PM OIL WELL LOGGER [facility] PROTEIN, RANDOM URINE 15 mg/dL(A) Negative 04/05/2024 7:58 PM OIL WELL LOGGER [facility] URINE GLUCOSE, QUAL Negative Negative 04/05/2024 7:58 PM OIL WELL LOGGER [facility] URINE KETONES Negative Negative 04/05/2024 7:58 PM OIL WELL LOGGER [facility] UROBILINOGEN Normal Normal mg/dL 04/05/2024 7:58 PM OIL WELL LOGGER [facility] URINE BLOOD Negative Negative tab/ul 04/05/2024 7:58 PM OIL WELL LOGGER [facility] URINALYSIS COLOR Yellow 04/06/19 7:58 PM OIL WELL LOGGER [facility] URINALYSIS CLARITY Very Cloudy 04/05/2024 7:58 PM OIL WELL LOGGER [facility] WBC (Urine) 51-150(A) Negative, 0-5 /hpf 04/05/2024 7:58 PM OIL WELL LOGGER [facility] URINE RBC'S Negative Negative, 0-2 /hpf 04/05/2024 7:58 PM OIL WELL LOGGER [facility] EPITHELIAL CELLS Moderate amount /lpf 04/05/2024 7:58 PM OIL WELL LOGGER [facility] BACTERIA, URINE Few(A) Negative /hpf 04/05/2024 7:58 PM OIL WELL LOGGER [facility] Urine URINE SPECIMEN OBTAINED BY CLEAN CATCH PROCEDURE / Unknown Non-Phlebotomy Collection / Unknown 04/05/2024 7:31 PM OIL WELL LOGGER 04/05/2024 7:37 PM OIL WELL LOGGER Rafa Ramsey APRN, CNP URINE ORDERABLES Final Result Performing Organization Address City/[facility]/ZIP Co de Phone Number [facility] [address] [place] [address] * Culture, Urine (04/05/2024 7:31 PM OIL WELL LOGGER) CULTURE RESULTS Mixed Growth of One or More Distal Urethral Contaminants 04/07/2024 10:45 AM OIL WELL LOGGER [facility] Urine URINE SPECIMEN OBTAINED BY CLEAN CATCH PROCEDURE / Unknown Non-Phlebotomy Collection / Unknown 04/05/2024 7:31 PM OIL WELL LOGGER 04/05/2024 7:37 PM OIL WELL LOGGER Rafa Ramsey APRN, CNP MICROBIOLOGY - GENERAL ORDERABLES Final Result [facility] [address] [place] [address], * RSV,SARS-COV-2,INFLUENZA A&B BY PCR (04/05/2024 6:48 PM OIL WELL LOGGER) FLU A Negative Negative, Error 04/05/2024 7:38 PM OIL WELL LOGGER [facility] FLU B Negative Negative 04/05/2024 7:38 PM OIL WELL LOGGER [facility] RESP SYNC VIRUS Negative Negative 7:38 PM OIL WELL LOGGER [facility] SARSCOV2 NOT DETECTED (Reference Range for this test is Not Detected) 04/05/2024 7:38 PM OIL WELL LOGGER [facility] Comment:This test was perfor med by a Reverse Job Printer PCR Method. Swab NASOPHARYNGEAL STRUCTURE / Unknown Non-Phlebotomy Collection / Unknown 04/05/2024 6:48 PM OIL WELL LOGGER 04/05/2024 7:00 PM OIL WELL LOGGER Rafa Ramsey APRN, CNP MICROBIOLOGY - GENERAL ORDERABLES Final Result [facility] [address] [place] [address] * EKG 12 LEAD (04/05/2024 6:11 PM OIL WELL LOGGER) Ventricular Rate 83 BPM EXTERNAL EKG Atrial Rate 83 BPM EXTERNAL EKG P-R Interval 138 ms EXTERNAL EKG QRS Duration 86 ms EXTERNAL EKG Q-T Duration 404 ms EXTERNAL EKG QTC CALCULATION 474 ms EXTERNAL EKG P [place] 46 degrees EXTERNAL EKG R [place] -18 degrees EXTERNAL EKG T [place] 32 degrees EXTERNAL EKG 04/05/2024 6:11 PM OIL WELL LOGGER Impressions EXTERNAL EKG - 04/16/2024 11:41 PM CDT Normal sinus rhythm Normal ECG No previous ECGs available Confirmed by Michael Baker ([id number]) on 04/16/2024 11:41:49 PM Narrative Procedure Note Michael Baker MD - 04/16/2024 IMPRESSION: Normal sinus rhythm Normal ECG No previous ECGs available Confirmed by Michael Baker ([id number]) on 04/16/2024 11:41:49 PM us Brayden Arellano MD IMG ECG ORDERABLES Final R esult EXTERNAL EKG * EKG SCAN (04/05/2024 12:00 AM OIL WELL LOGGER) 04/05/2024 us Provider Scan IMG ECG ORDERABLES Final Result RESULTING AGENCY from Last 3 Months Insurance MEDICAID [employer] Care Teams Real Estate Instructor Relationship Specialty Start Date End Date Rhianna Shepard PAC [address] [place] [address] PCP - General Advanced Practice Nurse 07/02/23
--- NOTE | 2024-04-22 01:42 | ED.GENADULT ---
HPI - General Adult General Chief complaint: Nausea/Vomiting/Diarrhea Stated complaint: nausea Time Seen by Provider: 04/22/24 01:41 Source: patient Mode of arrival: ambulatory Limitations: no limitations History of Present Illness HPI narrative: [age] YEARS OLD WHITE FEMALE DROVE HERSELF TO THE EMERGENCY ROOM COMPLAINING OF QUITE A BIT OF VOMITING OVER THE LAST 4 HOURS PRIOR TO ARRIVAL ASSOCIATED WITH ABDOMINAL CRAMPS. PATIENT REPORT 1 OF THE COWORKERS HAD SIMILAR SYMPTOMS. HISTORY OF DIABETES HYPERTENSION HYPERLIPIDEMIA COPD HYSTERECTOMY CHOLECYSTECTOMY APPENDECTOMY, DOES NOT SMOKE OR DRINK OR USE DRUGS. Related Data Home Medications ?Medication ?Instructions ?Recorded ?Confirmed ?Last Taken ?Type omeprazole magnesium 20 mg 20 mg PO DAILY 04/13/19 12/31/23 11/13/23 History tablet,delayed release (Prilosec OTC) atorvastatin 40 mg tablet 60 mg PO DAILY 06/01/21 12/31/23 11/13/23 History fluoxetine 40 mg capsule (Prozac) 20 mg PO BID 06/01/21 12/31/23 11/13/23 History multivitamin with minerals 1 tablet PO DAILY 12/01/21 12/31/23 11/13/23 History lisinopril 40 mg tablet 40 mg PO DAILY 10/31/22 12/31/23 11/13/23 History olanzapine 10 mg tablet 10 mg PO HS 11/17/22 12/31/23 11/13/23 History metformin 500 mg tablet,extended 500 mg PO BID 09/28/23 12/31/23 11/13/23 History release 24 hr topiramate 50 mg tablet 50 mg PO DAILY 09/28/23 12/31/23 11/13/23 History Allergies Allergy/AdvReac Type Severity Reaction Status Date / Time No Known Allergies Allergy Unknown Verified 03/26/24 22:00 Review of Systems Review of Systems: All systems reviewed & are unremarkable except as noted in HPI and below PMFSH Past Medical History Medical History Insect bite Hx MRSA infection Congestive heart failure Hypertension COPD (chronic obstructive pulmonary disease) Asthma Anxiety Depression Surgical History Surgical History History of incision and drainage Several areas to left forearm History of cholecystectomy History of hysterectomy History of tubal ligation Family History Family History Father Heart disease Mother , Mother at age 60. Diabetes mellitus Sibling Rheumatoid arthritis Has RA in her hands, sees registration scheduling specialist. Social History Social History Social History: The patient is but lives with her boyfriend now and her daughter and granddaughter. The patient has 2 children. She denies any alcohol or any other illicit drugs. The patient works in the [employer] And she is a former smoker. 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 Code status full code Smoking packs per day: 1.5 Smoking cigarettes per day: 30.0 Years smoked: 30 Smoking pack-years: 45.00 Smoking status: Former smoker Tobacco type: cigarettes Second hand tobacco smoke exposure: Yes Alcohol intake: never Substance use: never Substance use type: does not use Lack of Transportation: No Lack of Food: Sometimes True Current Housing: I Have Housing Concerned About Future Housing: No Difficulty Paying Gas/Electric Bills: No Difficulty Paying for Meds: No Currently Unemployed: No Education: High School Diploma/GED Difficulty w/ Childcare or Family Care: No Spiritual care concerns: No Exam Narrative: GENERAL APPEARANCE: WELL-DEVELOPED, WELL-NOURISHED SKIN: NORMAL COLOR HEAD: NORMOCEPHALIC, NONTRAUMATIC EYES: CLEAR CONJUNCTIVA ENT: OROPHARYNX NORMAL, EARS NORMAL, NOSE NORMAL NECK: SUPPLE, NONTENDER CHEST AND RESPIRATORY: AIRWAY PATENT, NO RESPIRATORY DISTRESS, NO ACCESSORY MUSCLE USE HEART: REGULAR RATE/RHYTHM ABDOMEN: FIRM, DIFFUSE TENDERNESS, NO ORGANOMEGALY, QUIET BOWEL SOUNDS VASCULAR: NORMAL PERIPHERAL PULSES, NORMAL CAPILLARY REFILL. MUSCULOSKELETAL: NORMAL RANGE OF MOTION, NONTENDER BACK NEUROLOGIC: ALERT AND ORIENTED ?3, POLICY SERVICE COORDINATOR IS NORMAL TESTED, NO GROSS MOTOR DEFICIT Course Vital Signs Vital signs: Vital Signs Temperature 36.3 C L 04/22/24 01:32 Pulse Rate 99 04/22/24 01:32 Respiratory Rate 18 04/22/24 01:32 Blood Pressure 142/72 H 04/22/24 01:32 Pulse Oximetry 94 04/22/24 01:32 Oxygen Delivery Room Air 04/22/24 01:32 Temperature 36.7 C 04/22/24 03:50 Pulse Rate 82 04/22/24 03:50 Respiratory Rate 18 04/22/24 03:50 Blood Pressure 111/64 04/22/24 03:50 Pulse Oximetry 93 04/22/24 03:50 Oxygen Delivery Room Air 04/22/24 03:50 Medical Decision Making [facility] Narrative Medical decision making narrative: PATIENT CAME TO THE ED WITH VOMITING AND ABDOMINAL PAIN HAD VITAL SIGNS SHOWING BLOOD PRESSURE 142/72 OTHERWISE WITHIN NORMAL LIMIT PHYSICAL EXAMINATION SHOWING RESTLESS PATIENT HOLDING VOMITING BAG IN HANDS, DIFFUSE ABDOMINAL TENDERNESS DIFFERENTIAL DIAGNOSIS INCLUDE VIRAL GASTROENTERITIS, CONSTIPATION, SMALL-BOWEL OBSTRUCTION, DIVERTICULITIS, COLITIS, DEHYDRATION, ELECTROLYTE IMBALANCE BLOOD WORKUP TODAY INCLUDES CBC, CMP, LACTIC ACID, LIPASE SHOWED lactic acid 2.1, otherwise within normal limit URINALYSIS SHOWED no evidence of infection CT ABDOMEN AND PELVIS WITHOUT CONTRAST SHOWED no acute intra-abdominal abnormality Viral panel negative for COVID flu RSV Anxiety like symptoms , viral gastroenteritis are my concern for patient presentation of vomiting and abdominal pain. Discharged on Zofran Differential Diagnosis Differential Diagnosis: ABOVE Vital Signs Vital Signs: Vital Signs Temperature 36.3 C L 04/22/24 01:32 Pulse Rate 99 04/22/24 01:32 Respiratory Rate 18 04/22/24 01:32 Blood Pressure 142/72 H 04/22/24 01:32 Pulse Oximetry 94 04/22/24 01:32 Oxygen Delivery Room Air 04/22/24 01:32 Temperature 36.7 C 04/22/24 03:50 Pulse Rate 82 04/22/24 03:50 Respiratory Rate 18 04/22/24 03:50 Blood Pressure 111/64 04/22/24 03:50 Pulse Oximetry 93 04/22/24 03:50 Oxygen Delivery Room Air 04/22/24 03:50 Lab Data 04/22/24 02:35 04/22/24 02:35 Labs: Lab Results 04/22/24 Range/Units 02:35 WBC 7.9 (4.8-10.8) K/mm3 RBC 4.63 (4.20-5.40) M/mm3 Hgb 13.0 (12.0-15.0) g/dL Hct 41.8 (35.0-49.0) % MCV 90.3 (78.0-102.0) fL MCH 28.1 (27.0-31.0) pg MCHC 31.1 L (32-36) g/dL RDW 13.5 (11.6-14.4) % Plt Count 303 (150-420) K/mm3 MPV 10.2 (9.2-11.8) fl Immature Gran % (Auto) 0.3 H (0.0-0.0) % Neut % (Auto) 69.2 (50.0-70.0) % Lymph % (Auto) 21.9 (18.0-42.0) % Cobb % (Auto) 5.1 (2.0-11.0) % Eos % (Auto) 3.2 (1.0-6.0) % Baso % (Auto) 0.3 (0.0-1.0) % Lymph # (Auto) 1.72 (1.10-4.50) K/mm3 Cobb # (Auto) 0.40 (0.10-0.90) K/mm3 Eos # (Auto) 0.25 (0.02-0.50) K/mm3 Baso # (Auto) 0.02 (0.00-0.10) K/mm3 Abs Immat Gran (auto) 0.02 H (0.00-0.00) K/mm3 Absolute Neuts (auto) 5.45 (1.70-7.20) K/mm3 Absolute Nucleated RBC 0.00 (0.00-0.00) K/mm3 Nucleated RBC % 0.0 (0-0.0) % Sodium 140 (136-145) mmol/L Potassium 4.2 (3.5-5.1) mmol/L Chloride 105 (98-108) mmol/L Carbon Dioxide 27 (21-32) mmol/L Anion Gap 8 (4-12) mmol/L BUN 12 (7-18) mg/dL Creatinine 0.74 (0.55-1.02) mg/dL Estim Creat Clear Calc 98 ml/min Estimated GFR > 60 (59 - ) Glucose 136 H (70-99) mg/dL Calculated Osmolality 291 (285-295) mOsm/kg Lactic Acid 2.1 H (0.4-2.0) mmol/L Calcium 9.6 (8.5-10.1) mg/dL Total Bilirubin 0.3 (0.00-1.00) mg/dL AST 10 L (15-37) U/L ALT 23 (14-59) U/L Alkaline Phosphatase 173 H (46-116) U/L Total Protein 7.6 (6.4-8.2) g/dL Albumin 3.5 (3.4-5.0) g/dL Lipase 29 (16-77) U/L Urine Color Light yellow (Yellow) Urine Appearance Clear (Clear) Urine pH 5.5 (5.0-8.0) Ur Specific [place] 1.015 (1.010-1.020) Urine Protein Negative (Negative) Urine Glucose (UA) Negative (Negative) Urine Ketones Negative (Negative) Ur Blood (Man) Negative (Negative) Urine Nitrate Negative (Negative) Urine Bilirubin Negative (Negative) Urine Urobilinogen 0.2 (0.2-1.0) mg/dL Leukocyte Esterase Rfl 1+ H (Negative) ANDREE/UL Urine RBC 0-2 (0-2) /hpf Urine WBC 10-15 H (0-3) /hpf Ur Squamous Epith Cells Few (Few) /hpf Urine Bacteria 1+ H (None) /hpf Influenza A (RT-PCR) Negative (Negative) Influenza B (RT-PCR) Negative (Negative) RSV (RT-PCR) Negative (Negative) SARS-CoV-2 RNA (RT-PCR) Negative (Negative) Imaging Data Radiologist's impression: CT abdomen and pelvis without IV contrast showed no acute intra-abdominal abnormality, no bowel obstruction or inflammation, no hydronephrosis or renal calculus, cholecystectomy Critical Care Time Critical Care Time Critical Care Time: No Discharge Plan Discharge Clinical Impression: Abdominal pain, Vomiting Patient Disposition: Home, Self-Care Condition: Improved Instructions: Acute Nausea and Vomiting (ED), Abdominal Pain (ED) Additional Instructions: Return if symptoms are worsening , call your family physician for appointment, take Tylenol as as needed for aches and pain, continue home medications. Patient Language: Welsh Prescriptions: New ondansetron 4 mg tablet,disintegrating 4 mg PO Q4H 0 Days Qty: 10 0RF Rx Instructions: 1st dose 1-2 hr before radiation No Action omeprazole magnesium [Prilosec OTC] 20 mg Tablet,Delayed Release (Dr/Ec) 20 mg PO DAILY lisinopril 40 mg tablet 40 mg PO DAILY olanzapine 10 mg tablet 10 mg PO HS tramadol 50 mg tablet 50 mg PO Q6H PRN (Reason: pain) Qty: 15 0RF nitrofurantoin monohyd/m-cryst [Macrobid] 100 mg capsule 100 mg PO Q12H 7 Days Qty: 14 0RF Rx Instructions: must administer with a meal/food magnesium oxide 400 mg magnesium tablet 400 mg PO DAILY Qty: 10 0RF fluoxetine [Prozac] 40 mg capsule 20 mg PO BID atorvastatin 40 mg tablet 60 mg PO DAILY metformin 500 mg tablet extended release 24 hr 500 mg PO BID topiramate 50 mg tablet 50 mg PO DAILY prednisone 20 mg tablet 20 mg PO DAILY 5 Days Qty: 5 0RF cyclobenzaprine 10 mg tablet 10 mg PO TID PRN (Reason: muscle spasm) Qty: 14 0RF ciprofloxacin HCl [Cipro] 250 mg tablet 250 mg PO Q12H Qty: 10 0RF multivitamin with minerals Tablet 1 tablet PO DAILY alprazolam 1 mg tablet 1 mg PO DAILY PRN (Reason: Anxiety) Qty: 1 0RF albuterol sulfate 90 mcg/actuation HFA aerosol inhaler 2 puff INHALATION Q4H PRN (Reason: Wheezing) Qty: 1 0RF Follow-up/Referrals: UNKNOWN,DOCTOR [Primary Care Provider] - Stand Alone Forms: Work/School Release IP
--- NOTE | 2024-04-22 02:00 | PC.NURSE ---
patient returned from imaging via wheelchair per finishing lab technician.
--- NOTE | 2024-04-22 02:06 | PC.NURSE ---
covid swab sent to lab
--- OUTSIDE RECORDS SUMMARY | 2024-04-22 02:17 | XMS_ITS | Clinical Summary ---
Author Organization [facility] Address [address] [facility], [place] [address] Phone Care Team Providers Care Acetylene Cylinder Packing Mixer Name Role Phone Rhianna Shepard Primary Care [...] Department Care Team Description 04/07/2024 Telephone [facility] [address] [place] [address] Suha Herrera Patient Outreach 04/05/2024 6:12 PM EARLY CHILDHOOD SERVICES COORDINATOR - 04/05/2024 10:05 PM EARLY CHILDHOOD SERVICES COORDINATOR Emergency [facility] Emergency [address] [place] [address] Rafa Ramsey, TAPE DUPLICATOR, PEANUT SALTER UTI (urinary tract infection) Discharge Disposition: Discharged [...] Comments Blood Pressure 97/57 04/05/2024 10:00 PM EARLY CHILDHOOD SERVICES COORDINATOR Pulse 71 04/05/2024 9:45 PM EARLY CHILDHOOD SERVICES COORDINATOR Temperature 36.5 C (97.7 F) 04/05/2024 6:17 PM EARLY CHILDHOOD SERVICES COORDINATOR Respiratory Rate 14 04/05/2024 8:14 PM EARLY CHILDHOOD SERVICES COORDINATOR Oxygen Saturation 93% 04/05/2024 10:00 PM EARLY CHILDHOOD SERVICES COORDINATOR Inhaled Oxygen Concentration - - Weight 124.2 kg (273 lb 13 oz) 04/05/2024 6:17 P M EARLY CHILDHOOD SERVICES COORDINATOR Height 182.9 cm (6') 04/05/2024 6:17 PM EARLY CHILDHOOD SERVICES COORDINATOR Body Mass Index 37.14 04/05/2024 6:17 PM EARLY CHILDHOOD SERVICES COORDINATOR Plan of Treatment Health Maintenance Due Date [...] CONTRAST Stat with Interpretation 04/05/2024 8:46 PM EARLY CHILDHOOD SERVICES COORDINATOR XR CHEST 2 VIEWS STAT 04/05/2024 8:27 PM EARLY CHILDHOOD SERVICES COORDINATOR CBC WITH AUTO DIFFERENTIAL STAT 04/05/2024 7:37 PM EARLY CHILDHOOD SERVICES COORDINATOR LIPASE STAT 04/05/2024 7:37 PM EARLY CHILDHOOD SERVICES COORDINATOR TROPONIN I, HIGH SENSITIVITY (HSTRP) STAT 04/05/2024 7:37 PM EARLY CHILDHOOD SERVICES COORDINATOR CMP (COMPREHENSIVE METABOLIC PANEL) STAT 04/05/2024 7:37 PM EARLY CHILDHOOD SERVICES COORDINATOR COMPLETE BLOOD COUNT (CBC) WITH DIFF STAT 04/05/2024 7:37 PM EARLY CHILDHOOD SERVICES COORDINATOR URINALYSIS REFLEX IF INDICATED BY ABNORMAL RESULTS STAT 04/05/2024 7:31 PM EARLY CHILDHOOD SERVICES COORDINATOR CULTURE, URINE STAT 04/05/2024 7:31 PM EARLY CHILDHOOD SERVICES COORDINATOR RSV,SARS-COV-2,INF [place] A&B BY PCR STAT 04/05/2024 6:48 PM EARLY CHILDHOOD SERVICES COORDINATOR EKG 12 LEAD STAT 04/05/2024 6:11 PM EARLY CHILDHOOD SERVICES COORDINATOR EKG SCAN 04/05/2024 12:00 AM EARLY CHILDHOOD SERVICES COORDINATOR from Last 3 Months Results * CT ABDOMEN PELVIS W/ CONTRAST (04/05/2024 8:46 PM EARLY CHILDHOOD SERVICES COORDINATOR) Anatomical Region Laterality Modality Abdomen N/A Computed Tomogra phy 04/05/2024 9:29 PM EARLY CHILDHOOD SERVICES COORDINATOR Impressions 04/05/2024 9:31 PM EARLY CHILDHOOD SERVICES COORDINATOR IMPRESSION: No acute process is seen. No findings are seen to explain the patient's symptoms. Narrative 04/05/2024 9:31 PM EARLY CHILDHOOD SERVICES COORDINATOR EXAM DESCRIPTION: CT ABDOMEN PELVIS W/ CONTRAST [...] Jitendra Miller M.D. KH: ANAYELI Report ID: [id number] [place] Location: [id number] Procedure Note Jitendra Miller MD - 04/05/2024 [...] signed by Jitendra GUADALUPE: ANAYELI Report ID: [id number] [place] Location: [id number] IMPRESSION: No acute process is seen. No findings are seen to explain the patient's symptoms. us Rafa Ramsey TAPE DUPLICATOR, PEANUT SALTER IMG CT ORDERABLES Final Result * XR CHEST 2 VIEWS (04/05/2024 8:27 PM EARLY CHILDHOOD SERVICES COORDINATOR) Anatomical Region Laterality Modality Chest N/A Digital Radiogra phy 04/05/2024 8:49 PM EARLY CHILDHOOD SERVICES COORDINATOR Impressions 04/05/2024 8:52 PM EARLY CHILDHOOD SERVICES COORDINATOR IMPRESSION: No acute cardiopulmonary abnormality. Narrative 04/05/2024 8:52 PM EARLY CHILDHOOD SERVICES COORDINATOR EXAM DESCRIPTION: XR CHEST 2 VIEWS REASON [...] signed by Jitendra GUADALUPE: ANAYELI Report ID: [id number] [place] Location: [id number] Procedure Note Jitendra Miller MD - 04/05/2024 [...] Jitendra Miller M.D. KH: ANAYELI Report ID: [id number] [place] Location: [place] [address] IMPRESSION: No acute cardiopulmonary abnormality. Rafa Ramsey APRN, CNP IMG DIAGNOSTIC ORDERABL ES Final Result * TROPONIN I, HIGH SENSITIVITY (HSTRP) (04/05/2024 7:37 PM EARLY CHILDHOOD SERVICES COORDINATOR) [facility] TROPONIN I, HIGH SENSITIVITY- [place] <3 <=14 ng/L 04/05/2024 8:04 PM EARLY CHILDHOOD SERVICES COORDINATOR [facility] Comment: High-sensitivity troponin I results are reported in ng/L making the result appear to be 1,000 times higher than the contemporary troponin I value which is reported in ng/ml. Results from [place]. Blood Venipuncture / Unknown 04/05/2024 7:37 PM EARLY CHILDHOOD SERVICES COORDINATOR 04/05/2024 7:37 PM EARLY CHILDHOOD SERVICES COORDINATOR Rafa Ramsey APRN, CNP CHEMISTRY ORDERABLES Fi nal Result [facility] [address] [place] [address] * CBC with Auto Differential (04/05/2024 7:37 PM EARLY CHILDHOOD SERVICES COORDINATOR) [facility] WBC 8.09 4.00 - 12.00 10(3)/mcL 04/05/2024 7:41 PM EARLY CHILDHOOD SERVICES COORDINATOR [facility] RBC 4.43 3.80 - 5.30 10(6)/mcL 04/05/2024 7:41 PM [facility] HEMOGLOBIN (HGB) 12.4 12.0 - 15.8 g/dL 04/05/2024 7:41 PM [facility] HEMATOCRIT (HCT) 38.3 36.0 - 47.0 % 04/05/2024 7:41 PM [facility] MCV 86.5 82.0 - 96.0 fL 04/05/2024 7:41 PM [facility] MCH 28.0 26.0 - 34.0 pg 04/05/2024 7:41 PM [facility] MCHC 32.4 31.0 - 36.0 g/dL 04/05/2024 7:41 PM [facility] PLATELET COUNT 297 140 - 440 10(3)/mcL 04/05/2024 7:41 PM [facility] RDW 13.5 11.8 - 15.5 % 04/05/2024 7:41 PM [facility] MPV 10.4 9.7 - 12.4 fL 04/05/2024 7:41 PM [facility] NEUTROPHILS 60.0 47.0 - 73.0 % 04/05/2024 7:41 PM [facility] LYMPHOCYTES 30.0 18.0 - 42.0 % 04/05/2024 7:41 PM [facility] MONOCYTES 6.3 4.0 - 12.0 % 04/05/2024 7:41 PM [facility] EOSINOPHILS 3.5 0.0 - 5.0 % 04/05/2024 7:41 PM [facility] BASOPHILS 0.2 0.0 - 1.0 % 04/05/2024 7:41 PM [facility] ABSOLUTE NEUTROPHILS 4.85 1.60 - 7.70 10(3)/mcL 04/05/2024 7:41 PM [facility] ABSOLUTE LYMPHOCYTES 2.43 1.30 - 3.20 10(3)/mcL 04/05/2024 7:41 PM EARLY CHILDHOOD SERVICES COORDINATOR [facility] ABSOLUTE MONOCYTES 0.51 0.20 - 1.00 10(3)/mcL 04/05/2024 7:41 PM EARLY CHILDHOOD SERVICES COORDINATOR [facility] ABSOLUTE EOSINOPHIL 0.28 0.00 - 0.40 10(3)/mcL 04/05/2024 7:41 PM EARLY CHILDHOOD SERVICES COORDINATOR [facility] ABSOLUTE BASOPHILS 0.02 0.00 - 0.10 10(3)/[facility] 04/05/2024 7:41 PM EARLY CHILDHOOD SERVICES COORDINATOR [facility] NRBC PER 100 WBC 0 04/06/19 7:41 PM EARLY CHILDHOOD SERVICES COORDINATOR [facility] Blood Venipuncture / Unknown 04/05/2024 7:37 PM EARLY CHILDHOOD SERVICES COORDINATOR 04/05/2024 7:37 PM EARLY CHILDHOOD SERVICES COORDINATOR Rafa Ramsey APRN, PEANUT SALTER HEMATOLOGY ORDERABLES F inal Result Performing Organization Address City/[facility]/ZIP Co de Phone Number [facility] [address] [place] [address] * Lipase [id number] (04/05/2024 7:37 PM EARLY CHILDHOOD SERVICES COORDINATOR) Pathologist [facility] LIPASE 26 8 - 78 U/L 04/05/2024 8:01 PM EARLY CHILDHOOD SERVICES COORDINATOR [facility] Blood Venipuncture / Unknown 04/05/2024 7:37 PM EARLY CHILDHOOD SERVICES COORDINATOR 04/05/2024 7:37 PM EARLY CHILDHOOD SERVICES COORDINATOR Rafa Ramsey APRN, PEANUT SALTER CHEMISTRY ORDERABLES Fi nal Result [facility] [address] [place] [address] * (ABNORMAL) Comprehensive Metabolic Panel (Cmp) [id number] (04/05/2024 7:37 PM EARLY CHILDHOOD SERVICES COORDINATOR) SODIUM 140 136 - 145 mmol/L 04/05/2024 8:01 PM EARLY CHILDHOOD SERVICES COORDINATOR [facility] POTASSIUM 3.8 3.5 - 5.1 mmol/L 04/05/2024 8:01 PM [facility] CHLORIDE 109(H) 98 - 107 mmol/L 04/05/2024 8:01 PM [facility] CO2, VENOUS 21(L) 22 - 30 mmol/L 04/05/2024 8:01 PM [facility] ANION GAP 13.8 <18.0 mmol/L 04/05/2024 8:01 PM [facility] GLUCOSE 106(H) 70 - 99 mg/dL 04/05/2024 8:01 PM [facility] BUN 11 10 - 20 mg/dL 04/05/2024 8:01 PM [facility] CREATININE, BLOOD 0.80 0.60 - 1.00 mg/dL 04/05/2024 8:01 PM [facility] BUN/CREATININE RATIO 14 12 - 20 ratio 04/05/2024 8:01 PM [facility] TOTAL PROTEIN 7.0 6.0 - 8.0 g/dL 04/05/2024 8:01 PM [facility] ALBUMIN 3.9 3.5 - 5.0 g/dL 04/05/2024 8:01 PM [facility] A/G RATIO 1.3 1.0 - 2.2 04/05/2024 8:01 PM [facility] CALCIUM 9.1 8.7 - 10.5 mg/dL 04/05/2024 8:01 PM [facility] T BILI 0.2 0.2 - 1.2 mg/dL 04/05/2024 8:01 PM [facility] SGOT (AST) 19 <43 U/L 04/05/2024 8:01 PM [facility] SGPT (ALT) 22 <56 U/L 04/05/2024 8:01 PM [facility] ALKALINE PHOSPHATASE 133 40 - 150 U/L 04/05/2024 8:01 PM [facility] GFR, ESTIMATED >60 >=60 04/05/2024 8:01 PM EARLY CHILDHOOD SERVICES COORDINATOR [facility] Comment: Creatinine Clearance is the preferred criteria for selecting drug dose adjustments in renally impaired patients. The GFR is provided as additional pertinent clinical information. GFR is reported in mL/min/1.73 sq m. Calculation based on the Chronic Kidney Disease Epidemiology Collaboration (CKD- EPI) equation refit without adjustment for race. GFR, EST. >60 >=60 025 8:01 PM EARLY CHILDHOOD SERVICES COORDINATOR [facility] GFR, EST. NONAFRICAN >60 >=60 04/05/2024 8:01 PM EARLY CHILDHOOD SERVICES COORDINATOR [facility] Blood Venipuncture / Unknown 04/05/2024 7:37 PM EARLY CHILDHOOD SERVICES COORDINATOR 04/05/2024 7:37 PM EARLY CHILDHOOD SERVICES COORDINATOR us Rafa Ramsey APRN, PEANUT SALTER CHEMISTRY ORDERABLES Fi nal Result [facility] [address] [place] [address] * (ABNORMAL) URINALYSIS REFLEX IF INDICATED BY ABNORMAL RESULTS (04/05/2024 7:31 PM EARLY CHILDHOOD SERVICES COORDINATOR) SPECIFIC GRAVITY 1.005 1.003 - 1.030 04/05/2024 7:58 PM EARLY CHILDHOOD SERVICES COORDINATOR [facility] URINE PH 7.0 5.0 - 9.0 04/05/2024 7:58 PM EARLY CHILDHOOD SERVICES COORDINATOR [facility] WBC ESTERASE 500 /uL(A) Negative 04/05/2024 7:58 PM EARLY CHILDHOOD SERVICES COORDINATOR [facility] NITRITE Negative Negative 04/05/2024 7:58 PM EARLY CHILDHOOD SERVICES COORDINATOR [facility] PROTEIN, RANDOM URINE 15 mg/dL(A) Negative 04/05/2024 7:58 PM EARLY CHILDHOOD SERVICES COORDINATOR [facility] URINE GLUCOSE, QUAL Negative Negative 04/05/2024 7:58 PM EARLY CHILDHOOD SERVICES COORDINATOR [facility] URINE KETONES Negative Negative 04/05/2024 7:58 PM EARLY CHILDHOOD SERVICES COORDINATOR [facility] UROBILINOGEN Normal Normal mg/dL 04/05/2024 7:58 PM EARLY CHILDHOOD SERVICES COORDINATOR [facility] URINE BLOOD Negative Negative tab/ul 04/05/2024 7:58 PM EARLY CHILDHOOD SERVICES COORDINATOR [facility] URINALYSIS COLOR Yellow 04/06/19 7:58 PM EARLY CHILDHOOD SERVICES COORDINATOR [facility] URINALYSIS CLARITY Very Cloudy 04/05/2024 7:58 PM EARLY CHILDHOOD SERVICES COORDINATOR [facility] WBC (Urine) 51-150(A) Negative, 0-5 /hpf 04/05/2024 7:58 PM EARLY CHILDHOOD SERVICES COORDINATOR [facility] URINE RBC'S Negative Negative, 0-2 /hpf 04/05/2024 7:58 PM EARLY CHILDHOOD SERVICES COORDINATOR [facility] EPITHELIAL CELLS Moderate amount /lpf 04/05/2024 7:58 PM EARLY CHILDHOOD SERVICES COORDINATOR [facility] BACTERIA, URINE Few(A) Negative /hpf 04/05/2024 7:58 PM EARLY CHILDHOOD SERVICES COORDINATOR [facility] Urine URINE SPECIMEN OBTAINED BY CLEAN CATCH PROCEDURE / Unknown Non-Phlebotomy Collection / Unknown 04/05/2024 7:31 PM EARLY CHILDHOOD SERVICES COORDINATOR 04/05/2024 7:37 PM EARLY CHILDHOOD SERVICES COORDINATOR Rafa Ramsey APRN, CNP URINE ORDERABLES Final Result Performing Organization Address City/[facility]/ZIP Co de Phone Number [facility] [address] [place] [address] * Culture, Urine (04/05/2024 7:31 PM EARLY CHILDHOOD SERVICES COORDINATOR) CULTURE RESULTS Mixed Growth of One or More Distal Urethral Contaminants 04/07/2024 10:45 AM EARLY CHILDHOOD SERVICES COORDINATOR [facility] Urine URINE SPECIMEN OBTAINED BY CLEAN CATCH PROCEDURE / Unknown Non-Phlebotomy Collection / Unknown 04/05/2024 7:31 PM EARLY CHILDHOOD SERVICES COORDINATOR 04/05/2024 7:37 PM EARLY CHILDHOOD SERVICES COORDINATOR Rafa Ramsey APRN, CNP MICROBIOLOGY - GENERAL ORDERABLES Final Result [facility] [address] [place] [address], * RSV,SARS-COV-2,INFLUENZA A&B BY PCR (04/05/2024 6:48 PM EARLY CHILDHOOD SERVICES COORDINATOR) FLU A Negative Negative, Error 04/05/2024 7:38 PM EARLY CHILDHOOD SERVICES COORDINATOR [facility] FLU B Negative Negative 04/05/2024 7:38 PM EARLY CHILDHOOD SERVICES COORDINATOR [facility] RESP SYNC VIRUS Negative Negative 7:38 PM EARLY CHILDHOOD SERVICES COORDINATOR [facility] SARSCOV2 NOT DETECTED (Reference Range for this test is Not Detected) 04/05/2024 7:38 PM EARLY CHILDHOOD SERVICES COORDINATOR [facility] Comment:This test was perfor med by a Reverse Sports Physician PCR Method. Swab NASOPHARYNGEAL STRUCTURE / Unknown Non-Phlebotomy Collection / Unknown 04/05/2024 6:48 PM EARLY CHILDHOOD SERVICES COORDINATOR 04/05/2024 7:00 PM EARLY CHILDHOOD SERVICES COORDINATOR Rafa Ramsey APRN, CNP MICROBIOLOGY - GENERAL ORDERABLES Final Result [facility] [address] [place] [address] * EKG 12 LEAD (04/05/2024 6:11 PM EARLY CHILDHOOD SERVICES COORDINATOR) Ventricular Rate 83 BPM EXTERNAL EKG Atrial Rate 83 BPM EXTERNAL EKG P-R Interval 138 ms EXTERNAL EKG QRS Duration 86 ms EXTERNAL EKG Q-T Duration 404 ms EXTERNAL EKG QTC CALCULATION 474 ms EXTERNAL EKG P [place] 46 degrees EXTERNAL EKG R [place] -18 degrees EXTERNAL EKG T [place] 32 degrees EXTERNAL EKG 04/05/2024 6:11 PM EARLY CHILDHOOD SERVICES COORDINATOR Impressions EXTERNAL EKG - 04/16/2024 11:41 PM CDT Normal sinus rhythm Normal ECG No previous ECGs available Confirmed by Michael Baker ([id number]) on 04/16/2024 11:41:49 PM Narrative Procedure Note Michael Baker MD - 04/16/2024 IMPRESSION: Normal sinus rhythm Normal ECG No previous ECGs available Confirmed by Michael Baker ([id number]) on 04/16/2024 11:41:49 PM us Brayden Arellano MD IMG ECG ORDERABLES Final R esult EXTERNAL EKG * EKG SCAN (04/05/2024 12:00 AM EARLY CHILDHOOD SERVICES COORDINATOR) 04/05/2024 us Provider Scan IMG ECG ORDERABLES Final Result RESULTING AGENCY from Last 3 Months Insurance MEDICAID [employer] 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
--- OUTSIDE RECORDS SUMMARY | 2024-04-22 02:17 | XMS_ITS | Clinical Summary ---
Author Organization [facility] Address [address] [place] [address] Care Team Providers Care Director Of Guidance Name Role Phone Rhianna Shepard Primary Care Provider [phone] Social History Tobacco Use Types Packs/Day Years [...] to Health Maintenance Insurance [employer] Care Teams Director Of Guidance Relationship Specialty Start Date End Date Rhianna Shepard PA [address] [place] [address] PCP - General PHYSICIAN BUSINESS SYSTEMS TECHNICIAN 11/18/19
--- OUTSIDE RECORDS SUMMARY | 2024-04-22 02:17 | XMS_ITS | CONTINUITY OF CARE DOCUMENT ---
Author Name rosalieser, rosalieser Address Unknown Organization [facility] Address [address] [address] [place] [address] Phone [phone] Care Team Providers Care Ecommerce Manager Name Role Phone Kathy Copeland MD Unavailable AMY FREEMAN MD Unavailable AMY FREEMAN MD Unavailable PROBLEMS Condition Status Date Provider Notes Shortness of breath (SOB) active Kathy welch MD Tobacco abuse active Kathy Copeland MD COPD active Kathy Copeland MD Bipolar disorder active Kathy Copeland MD ENCOUNTERS Date Type Provider Location Encounter Diag nosis - In-person encounter Office Visit Kathy Copeland MD [facility] Office - In-person encounter Office Visit Kathy Copeland MD [facility] - In-person encounter Office Visit Kathy Copeland MD [facility] Shortness of breath (SOB)Tobacco abuseCOPDBipolar disorder VITAL SIGNS Date Observation Value Provider blood pressure, diastolic 80 mm[Hg] Williams Copeland MD blood pressure, systolic 110 mm[Hg] Ozzy Copeland MD pulse rate 88 /min Kathy Copeland MD oxygen saturation, oximetry 97 % Kathy Copeland MD respiratory rate E&M 16 /min Susan Copeland MD Body Mass Index (Ratio) 31.63 kg/m2 Fior Copeland MD weight E&M 196 [lb_av] Kathy Copeland MD blood pressure, diastolic 80 mm[Hg] Williams Copeland MD blood pressure, systolic 128 mm[Hg] Ozzy Copeland MD respiratory rate E&M 16 /min Susan Copeland MD pulse rate 94 /min Kathy Copeland MD oxygen saturation, oximetry 96 % Kathy Copeland MD Body Mass Index (Ratio) 32.28 kg/m2 Fior Copeland MD weight E&M 200 [lb_av] Kathy Copeland MD blood pressure, diastolic 72 mm[Hg] Williams Copeland MD blood pressure, systolic 110 mm[Hg] Ozzy Copeland MD pulse rate 111 /min Kathy Copeland MD oxygen saturation, oximetry 98 % Kathy Copeland MD respiratory rate E&M 18 /min Susan Copeland MD Body Mass Index (Ratio) 31.47 kg/m2 Fior Copeland MD weight E&M 195 [lb_av] Kathy Copeland MD height E&M 66 [in_i] Kathy Copeland MD ALLERGIES No Known Drug Allergies HISTORY OF MEDICATION USE Medication Status Instructions Dates Provider Indications Com ments QVAR 80 MCG/ACT INHALATION AEROSOL SOLUTION active 1 puff bid 3 Alex Shane ALBUTEROL SULFATE (2.5 MG/3ML) 0.083% INHALATION NEBULIZATION SOLUTION active 0 Kathy Copeland MD LISINOPRIL TABLET active 0 Kathy Copeland MD SYMBICORT 80-4.5 MCG/ACT INHALATION AEROSOL completed one puff twice a day, in the morning and evening 0 - 3 Alex Shane IBUPROFEN 800 MG ORAL TABLET active 0 Kathy Copeland MD RISPERDAL 3 MG ORAL TABLET active 0 Kathy Copeland MD PRILOSEC 20 MG ORAL CAPSULE DELAYED RELEASE active ONE TAB. DAILY 0 Kathy Copeland MD SOCIAL HISTORY Date Observation Value Provider social history E&M S moking History: P atient currently smokes every day. P atient has been counseled to quit. Kathy Copeland MD smoking/tobacco cess ation, patient education and counseling yes Kathy Copeland MD smoking status Current every day smoker M corey Copeland MD social history reviewed E&M revi ewed - no changes required Kathy Copeland MD social history E&M S moking History: P atient currently smokes every day. P atient has been counseled to quit. Kathy Copeland MD smoking/tobacco cess ation, patient education and counseling yes Kathy Copeland MD smoking status Current every day smoker M corey Copeland MD social history reviewed E&M revi ewed - no changes required Kathy Copeland MD drug use yes Kathy Copeland MD number of years as a smoker 10 a Kathy Copeland MD cigarette use yes Kathy Copeland MD social history E&M S moking History: P atient currently smokes every day. P atient has been counseled to quit. Kathy Copeland MD smoking/tobacco cess ation, patient education and counseling yes Kathy Copeland MD smoking status Current every day smoker M corey Copeland MD social history reviewed E&M revi ewed - no changes required Kathy Copeland MD FAMILY HISTORY Family Member Condition Mother Family History Unkno wn INSURANCE PROVIDERS Payer name Policy type / Coverage type [place] [employer] party [id number] MEDICAID (2) Medicaid [id number] TREATMENT PLAN Date Name Performer Cardiology:On albuterol inhalers . Kathy Copeland MD Cardiology:Much improved. Jose Copeland MD Cardiology Kathy Mireles Cardiology:Strongly advised to q uit smoking. Kathy Copeland MD Cardiology printed t o [place]:Continues on bronchodilators and steroids. Needs a PFT. Once her shortness of breath resolves, a stress test will be arranged. Advised to quit smoking and continue medications. Kathy Copeland MD Cardiology printed to [place]:L ikely COPD. Needs a PFT. Kathy Copeland MD Cardiology printed t o [place]:Strongly advised to quit smoking. Kathy Copeland MD Cardiology printed to [place] M corey Copeland MD Cardiology:On Risperdal. Susan Copeland MD Cardiology:Strongly advised to q uit smoking. Kathy Copeland MD Cardiology Kathy Mireles Cardiology:Likely [place] PD exacerbation. She still remains symptomatic with cough and shortness of breath and reduced effort tolerance. She will continue on bronchodilators and nebulizers. I have given her a prescription for Symbicort inhaler which she uses twice a day. A PFT will be done. She has been strongly advised to stop smoking and she will need a pulmonary evaluation. Once her shortness of breath is better, she will need a stress test. Her EKG done during her hospital admission showed sinus rhythm and was otherwise unremarkable. Her echocardiogram shows normal LV size and systolic function with an EF of 60%, and grade 1 diastolic dysfunction. Kathy Copeland MD Date Name DLCO - 50228 FRC - 22802 FVC - 13546 HISTORY OF PROCEDURES Procedure Date Procedure Name Provider Procedure Notes S tatus SNOMED-CT: 127121458 [id number] Current Medications Documented Kathy Copeland MD completed SNOMED-CT: 592292412 Smoking Cessation Counseling Kathy Copeland MD completed SNOMED-CT: 05048025 Physical Exam, Performed: Pulse Exam of Foot Kathy Copeland MD completed SNOMED-CT: 739777883 228811 Current Medications Documented Kathy Copeland MD completed SNOMED-CT: 387500822 Smoking Cessation Counseling Kathy Copeland MD completed SNOMED-CT: 25314768 Physical Exam, Performed: Pulse Exam of Foot Kathy Copeland MD completed SNOMED-CT: 005862362 598100 Current Medications Documented Kathy Copeland MD completed SNOMED-CT: 916317654 Smoking Cessation Counseling Kathy Copeland MD completed SNOMED-CT: 98612992 Physical Exam, Performed: Pulse Exam of Foot Kathy Copeland MD completed
--- OUTSIDE RECORDS SUMMARY | 2024-04-22 02:17 | XMS_ITS | Encounter Summary ---
Author Organization [facility] Address [address] [place] [address] Care Team Providers Care Butcher Chicken And Fish Name Role Phone Rhianna Shepard Primary Care Provider [phone] Encounter Details Date Type Department Care Team (Late st Contact Info) Description 07/13/2018 Abstract [facility] [address] [place] [address] , Generic Conversion, Social History Tobacco Use [...] on filedocumented in this encounter Care Teams Butcher Chicken And Fish Relationship Specialty Start Date End Date Rhianna Shepard PA [address] [place] [address] PCP - General PHYSICIAN SHAG TRUCK DRIVER 11/18/19 documented as of this encounter
[2024-04-22] MEDS: MORPHINE SULFATE (*CRX) 4 MG/ML INJ IV PUSH (02:32)
[2024-04-22] MEDS: ONDANSETRON INJ 4 MG/2 ML VIAL IV PUSH (02:32)
[2024-04-22] MEDS: SODIUM CHLORIDE 0.9% IV 1,000 ML 999 ML IV CONT (02:34)
[2024-04-22 02:38] LABS: Basophils Absolute Auto 0.02 K/mm3 (0.00-0.10); Basophils Percent Auto 0.3 % (0.0-1.0); Eosinophils Absolute Auto 0.25 K/mm3 (0.02-0.50); Eosinophils Percent Auto 3.2 % (1.0-6.0); Hematocrit 41.8 % (35.0-49.0); Immature Granulocyte Absolute 0.02 K/mm3 (0.00-0.00); Immature Granulocyte Percent A 0.3 % (0.0-0.0); Lymphocytes Absolute Auto 1.72 K/mm3 (1.10-4.50); Lymphocytes Percent Auto 21.9 % (18.0-42.0); Mean Corpuscular HGB Conc 31.1 g/dL (32-36); Mean Corpuscular Hemoglobin 28.1 pg (27.0-31.0); Mean Corpuscular Volume 90.3 fL (78.0-102.0); Mean Platelet Volume 10.2 fl (9.2-11.8); Monocytes Percent Auto 5.1 % (2.0-11.0); Neutrophils Absolute Auto 5.45 K/mm3 (1.70-7.20); Neutrophils Percent Auto 69.2 % (50.0-70.0); Platelet Count Result 303 K/mm3 (150-420); Red Blood Count 4.63 M/mm3 (4.20-5.40); Red Cell Distribution Width 13.5 % (11.6-14.4); White Blood Count 7.9 K/mm3 (4.8-10.8)
[2024-04-22 02:52] LABS: Add Urine Microscopic? YES; Appearance Urine Clear (Clear); Bilirubin Urine Negative (Negative); Blood Urine Negative (Negative); Color Urine Light Yellow (Yellow); Glucose Urine UA Negative (Negative); Ketones Urine Negative (Negative); Leukocyte Esterase Ur 1+ LEU/UL (Negative); Nitrate Urine Negative (Negative); Protein Urine Negative (Negative); Specific Grav Ur 1.015 (1.010-1.020); Urobilinogen Urine 0.2 mg/dL (0.2-1.0); pH Urine 5.5 (5.0-8.0)
--- NOTE | 2024-04-22 02:55 | PC.NURSE ---
patient resting on stretcher in ED 4, awaiting results and plan. patient daughter now at bedside.
[2024-04-22 02:56] LABS: Alanine Aminotransferase 23 U/L (14-59); Albumin Level 3.5 g/dL (3.4-5.0); Alkaline Phosphatase 173 U/L (46-116); Anion Gap 8 mmol/L (4-12); Aspartate Amino Transferase 10 U/L (15-37); Bilirubin,Total 0.3 mg/dL (0.00-1.00); Blood Urea Nitrogen 12 mg/dL (7-18); Calcium 9.6 mg/dL (8.5-10.1); Carbon Dioxide 27 mmol/L (21-32); Chloride 105 mmol/L (98-108); Estimated CRCL calculation 98 ml/min; Estimated Glomerular Filt Rate > 60; Glucose 136 mg/dL (70-99); Lipase 29 U/L (16-77); Osmolality Calculated 291 mOsm/kg (285-295); Potassium 4.2 mmol/L (3.5-5.1); Sodium 140 mmol/L (136-145); Total Protein 7.6 g/dL (6.4-8.2)
[2024-04-22 02:58] LABS: Bacteria Urine 1+ /hpf; RBC Urine 0-2 /hpf (0-2); Squamous Epithelial Cell Urine Few /hpf (Few)
[2024-04-22 03:01] LABS: Lactic Acid Reflex 2.1 mmol/L (0.4-2.0)
--- NOTE | 2024-04-22 03:13 | PC.NURSE ---
patient given ice chips per request and EPR okay.
[2024-04-22 03:16] LABS: Influenza A QL RT-PCR Negative (Negative); Influenza B QL RT-PCR Negative (Negative); RSV RNA, RT-PCR Negative (Negative); SARS-CoV-2 RNA PCR Negative (Negative)
[2024-04-22 03:50] VITALS: BP 111/64; PULSE 82; RESP 18; TEMP 36.7; O2SAT 93
--- NOTE | 2024-04-22 03:50 | PC.NURSE ---
patient resting on stretcher in ED 4 without distress and VSS. daughter remains at bedside. update provided as patient awaiting results of ct scan. call light within reach.
[2024-04-22 04:38] LABS: Reflex Lactic Acid Yes or No Add Lactic
--- NOTE | 2024-04-22 04:52 | PC.NURSE ---
DR. Chandler at patient bedside speaking with patient regarding results and plan.
--- NOTE | 2024-04-24 13:24 | PC.NURSE ---
FINAL URINE CULTURE NO GROWTH
== END 2024-04-22 05:03 | disposition home or self-care (01) ==
PROVIDERS: Emergency Provider Emergency Medicine
DX: R11.2 Nausea with vomiting, unspecified (principal); R10.9 Unspecified abdominal pain; E11.9 Type 2 diabetes mellitus without complications; I50.9 Heart failure, unspecified; I11.0 Hypertensive heart disease with heart failure; J44.9 Chronic obstructive pulmonary disease, unspecified; F41.8 Other specified anxiety disorders; Z87.891 Personal history of nicotine dependence; Z20.822 Contact with and (suspected) exposure to COVID-19
CPT/HCPCS: 36415; 74176; 80053; 81001; 83605; 83690; 85025; 87086; 87637; 96361; 96374; 96375; 99284; J2270; J2405; J7030

== ENCOUNTER 2024-05-19 12:26 | Outpatient (CLI) | payer OTHER, SELFPAY ==
[2024-05-19 13:24] LABS: Toxigenic C. Diff NEGATIVE (NEGATIVE)
--- OUTSIDE RECORDS SUMMARY | 2024-05-19 13:39 | XMS_ITS | Clinical Summary ---
Author Organization [facility] Address [address] [place] [address] Care Team Providers Care Compounding Assistant Name Role Phone Rhianna Shepard Primary Care Provider [phone] Social History Tobacco Use Types Packs/Day Years [...] 11/18/2019 COVID-19 Vaccine (2023-2 5 season) 2023 Meningococcal B Vaccine Aged Out No l onger eligible based on patient's age to complete this topic Meningococcal Vaccine Aged Out No espinoza sweta eligible based on patient's age to complete this topic Pneumococcal Vaccine: Pediat rics (0 to 5 Years) and At-Risk Patients (6 to 49 Years) Aged Out No longer eligi ble [...] Most Recently Relevant to Health Maintenance Insurance [employer] Care Teams Compounding Assistant Relationship Specialty Start Date End Date Rhianna Shepard PA [address] [address] PCP - General PHYSICIAN CONTRACT DRIVER 11/18/19
--- OUTSIDE RECORDS SUMMARY | 2024-05-19 13:39 | XMS_ITS | CONTINUITY OF CARE DOCUMENT ---
Author Name rosalieser, rosalieser Address Unknown Organization [facility] Address [address] [place] [address] Phone [phone] Care Team Providers Care Clerical Secretary Name Role Phone Kathy Copeland MD Unavailable AMY FREEMAN MD Unavailable AMY FREEMAN MD Unavailable [phone] PROBLEMS Condition Status Date Provider Notes Shortness of breath (SOB) active Kathy welch MD Tobacco abuse active Kathy Copeland MD COPD active Kathy Copeland MD Bipolar disorder active Kathy Copeland MD ENCOUNTERS Date Type Provider Location Encounter Diag nosis - In-person encounter Office Visit Kathy Copeland MD [facility] Office - In-person encounter Office Visit Kathy Copeland MD [place] [facility] - In-person encounter Office Visit Kathy Copeland MD [facility] Office Shortness of breath (SOB)Tobacco abuseCOPDBipolar disorder [...] Payer name Policy type / Coverage type [place] [employer] party ID [place] MEDICAID (2) Medicaid [id number] TREATMENT PLAN Date Name Performer Cardiology:On albuterol [...] Kathy Copeland MD Date Name DLCO - 95304 FRC - 75282 FVC - 50301 HISTORY OF PROCEDURES Procedure Date Procedure Name Provider Procedure Notes S tatus SNOMED-CT: 144611938 217271 Current Medications Documented Kathy Copeland MD completed SNOMED-CT: 402704857 Smoking Cessation Counseling Kathy Copeland MD completed SNOMED-CT: 39824962 Physical Exam, Performed: Pulse Exam of Foot Kathy Copeland MD completed SNOMED-CT: 772114979 636692 Current Medications Documented Kathy Copeland MD completed SNOMED-CT: 316228644 Smoking Cessation Counseling Kathy Copeland MD completed SNOMED-CT: 88742792 Physical Exam, Performed: Pulse Exam of Foot Kathy Copeland MD completed SNOMED-CT: 688729788 555553 Current Medications Documented Kathy Copeland MD completed SNOMED-CT: 372985765 Smoking Cessation Counseling Kathy Copeland MD completed SNOMED-CT: 29999469 Physical Exam, Performed: Pulse Exam of Foot Kathy Copeland MD completed
--- OUTSIDE RECORDS SUMMARY | 2024-05-19 13:39 | XMS_ITS | Encounter Summary ---
Author Organization [facility] Address [address] [place] [address] Care Team Providers Care Websphere Commerce Developer Name Role Phone Rhianna Shepard Primary Care Provider [phone] Encounter Details Date Type Department Care Team (Late st Contact Info) Description 07/13/2018 Abstract [facility] CONVERSION [address] [place] [address] , Generic Conversion, Social History Tobacco Use [...] on filedocumented in this encounter Care Teams Websphere Commerce Developer Relationship Specialty Start Date End Date Rhianna Shepard PA [address] [place] [address] PCP - General PHYSICIAN TYPER 11/18/19 documented as of this encounter
--- OUTSIDE RECORDS SUMMARY | 2024-05-19 13:39 | XMS_ITS | Clinical Summary ---
Author Organization [facility] Address [address] [facility] [place] [address] Phone Care Team Providers Care Straight Edger Name Role Phone Rhianna Shepard Primary Care [...] Department Care Team Description 04/07/2024 Telephone [facility] [address] [place] [address] Suha Herrera Patient Outreach 04/05/2024 6:12 PM INTERNATIONAL MARKETING COORDINATOR - 04/05/2024 10:05 PM INTERNATIONAL MARKETING COORDINATOR Emergency [facility] [address] [place] [address] Rafa Ramsey, JAWBONE PULLER, STATION ENGINEER UTI (urinary tract infection) Discharge Disposition: Discharged [...] Comments Blood Pressure 97/57 04/05/2024 10:00 PM INTERNATIONAL MARKETING COORDINATOR Pulse 71 04/05/2024 9:45 PM INTERNATIONAL MARKETING COORDINATOR Temperature 36.5 C (97.7 F) 04/05/2024 6:17 PM INTERNATIONAL MARKETING COORDINATOR Respiratory Rate 14 04/05/2024 8:14 PM INTERNATIONAL MARKETING COORDINATOR Oxygen Saturation 93% 04/05/2024 10:00 PM INTERNATIONAL MARKETING COORDINATOR Inhaled Oxygen Concentration - - Weight 124.2 kg (273 lb 13 oz) 04/05/2024 6:17 P M INTERNATIONAL MARKETING COORDINATOR Height 182.9 cm (6') 04/05/2024 6:17 PM INTERNATIONAL MARKETING COORDINATOR Body Mass Index 37.14 04/05/2024 6:17 PM INTERNATIONAL MARKETING COORDINATOR Plan of Treatment Health Maintenance Due [...] CONTRAST Stat with Interpretation 04/05/2024 8:46 PM INTERNATIONAL MARKETING COORDINATOR XR CHEST 2 VIEWS STAT 04/05/2024 8:27 PM INTERNATIONAL MARKETING COORDINATOR CBC WITH AUTO DIFFERENTIAL STAT 04/05/2024 7:37 PM INTERNATIONAL MARKETING COORDINATOR LIPASE STAT 04/05/2024 7:37 PM INTERNATIONAL MARKETING COORDINATOR TROPONIN I, HIGH SENSITIVITY (HSTRP) STAT 04/05/2024 7:37 PM INTERNATIONAL MARKETING COORDINATOR CMP (COMPREHENSIVE METABOLIC PANEL) STAT 04/05/2024 7:37 PM INTERNATIONAL MARKETING COORDINATOR COMPLETE BLOOD COUNT (CBC) WITH DIFF STAT 04/05/2024 7:37 PM INTERNATIONAL MARKETING COORDINATOR URINALYSIS REFLEX IF INDICATED BY ABNORMAL RESULTS STAT 04/05/2024 7:31 PM INTERNATIONAL MARKETING COORDINATOR CULTURE, URINE STAT 04/05/2024 7:31 PM INTERNATIONAL MARKETING COORDINATOR RSV,SARS-COV-2,INF LUENZA A&B BY PCR STAT 04/05/2024 6:48 PM INTERNATIONAL MARKETING COORDINATOR EKG 12 LEAD STAT 04/05/2024 6:11 PM INTERNATIONAL MARKETING COORDINATOR EKG SCAN 04/05/2024 12:00 AM INTERNATIONAL MARKETING COORDINATOR from Last 3 Months Results * CT ABDOMEN PELVIS W/ CONTRAST (04/05/2024 8:46 PM INTERNATIONAL MARKETING COORDINATOR) Anatomical Region Laterality Modality Abdomen N/A Computed Tomogra phy 04/05/2024 9:29 PM INTERNATIONAL MARKETING COORDINATOR Impressions 04/05/2024 9:31 PM INTERNATIONAL MARKETING COORDINATOR IMPRESSION: No acute process is seen. No findings are seen to explain the patient's symptoms. Narrative 04/05/2024 9:31 PM INTERNATIONAL MARKETING COORDINATOR EXAM DESCRIPTION: CT ABDOMEN PELVIS W/ [...] Jitendra Miller M.D. KH: ANAYELI Report ID: [id number] Reading Location: [id number] Procedure Note Jitendra Miller MD - 04/05/2024 [...] signed by Jitendra GUADALUPE: ANAYELI Report ID: [id number] Reading Location: [id number] IMPRESSION: No acute process is seen. No findings are seen to explain the patient's symptoms. us Rafa Ramsey JAWBONE PULLER, STATION ENGINEER IMG CT ORDERABLES Final Result * XR CHEST 2 VIEWS (04/05/2024 8:27 PM INTERNATIONAL MARKETING COORDINATOR) Anatomical Region Laterality Modality Chest N/A Digital Radiogra phy 04/05/2024 8:49 PM INTERNATIONAL MARKETING COORDINATOR Impressions 04/05/2024 8:52 PM INTERNATIONAL MARKETING COORDINATOR IMPRESSION: No acute cardiopulmonary abnormality. Narrative 04/05/2024 8:52 PM INTERNATIONAL MARKETING COORDINATOR EXAM DESCRIPTION: XR CHEST 2 VIEWS [...] signed by Jitendra GUADALUPE: ANAYELI Report ID: [id number] Reading Location: [id number] Procedure Note Jitendra Miller MD - 04/05/2024 [...] Jitendra Miller M.D. KH: ANAYELI Report ID: [id number] Reading Location: [place] [address] IMPRESSION: No acute cardiopulmonary abnormality. Rafa Ramsey APRN, CNP IMG DIAGNOSTIC ORDERABL ES Final Result * TROPONIN I, HIGH SENSITIVITY (HSTRP) (04/05/2024 7:37 PM INTERNATIONAL MARKETING COORDINATOR) [facility] TROPONIN I, HIGH SENSITIVITY- [place] <3 <=14 ng/L 04/05/2024 8:04 PM INTERNATIONAL MARKETING COORDINATOR [facility] Comment: High-sensitivity troponin I results are reported in ng/L making the result appear to be 1,000 times higher than the contemporary troponin I value which is reported in ng/ml. Results from [place]. Blood Venipuncture / Unknown 04/05/2024 7:37 PM INTERNATIONAL MARKETING COORDINATOR 04/05/2024 7:37 PM INTERNATIONAL MARKETING COORDINATOR Rafa Ramsey APRN, CNP CHEMISTRY ORDERABLES Fi nal Result [facility] [address] [place] [address] * CBC with Auto Differential (04/05/2024 7:37 PM INTERNATIONAL MARKETING COORDINATOR) [facility] WBC 8.09 4.00 - 12.00 10(3)/mcL 04/05/2024 7:41 PM INTERNATIONAL MARKETING COORDINATOR [facility] RBC 4.43 3.80 - 5.30 10(6)/mcL 04/05/2024 7:[address] [facility] HEMOGLOBIN (HGB) 12.4 12.0 - 15.8 g/dL 04/05/2024 7:[address] [facility] HEMATOCRIT (HCT) 38.3 36.0 - 47.0 % 04/05/2024 7:[address] [facility] MCV 86.5 82.0 - 96.0 fL 04/05/2024 7:[address] [facility] MCH 28.0 26.0 - 34.0 pg 04/05/2024 7:[address] [facility] MCHC 32.4 31.0 - 36.0 g/dL 04/05/2024 7:[address] [facility] PLATELET COUNT 297 140 - 440 10(3)/mcL 04/05/2024 7:[address] [facility] RDW 13.5 11.8 - 15.5 % 04/05/2024 7:[address] [facility] MPV 10.4 9.7 - 12.4 fL 04/05/2024 7:[address] [facility] NEUTROPHILS 60.0 47.0 - 73.0 % 04/05/2024 7:[address] [facility] LYMPHOCYTES 30.0 18.0 - 42.0 % 04/05/2024 7:[address] [facility] MONOCYTES 6.3 4.0 - 12.0 % 04/05/2024 7:[address] [facility] EOSINOPHILS 3.5 0.0 - 5.0 % 04/05/2024 7:[address] [facility] BASOPHILS 0.2 0.0 - 1.0 % 04/05/2024 7:[address] [facility] ABSOLUTE NEUTROPHILS 4.85 1.60 - 7.70 10(3)/mcL 04/05/2024 7:[address] [facility] ABSOLUTE LYMPHOCYTES 2.43 1.30 - 3.20 10(3)/mcL 04/05/2024 7:41 PM INTERNATIONAL MARKETING COORDINATOR [facility] ABSOLUTE MONOCYTES 0.51 0.20 - 1.00 10(3)/mcL 04/05/2024 7:41 PM INTERNATIONAL MARKETING COORDINATOR [facility] ABSOLUTE EOSINOPHIL 0.28 0.00 - 0.40 10(3)/mcL 04/05/2024 7:41 PM INTERNATIONAL MARKETING COORDINATOR [facility] ABSOLUTE BASOPHILS 0.02 0.00 - 0.10 10(3)/[facility] 04/05/2024 7:41 PM INTERNATIONAL MARKETING COORDINATOR [facility] NRBC PER 100 WBC 0 04/06/19 7:41 PM INTERNATIONAL MARKETING COORDINATOR [facility] Blood Venipuncture / Unknown 04/05/2024 7:37 PM INTERNATIONAL MARKETING COORDINATOR 04/05/2024 7:37 PM INTERNATIONAL MARKETING COORDINATOR Rafa Ramsey APRN, STATION ENGINEER HEMATOLOGY ORDERABLES F inal Result Performing Organization Address City/[facility] [address]/ZIP Co de Phone Number [facility] [address] [place] [address] * Lipase [id number] (04/05/2024 7:37 PM INTERNATIONAL MARKETING COORDINATOR) Pathologist [facility] LIPASE 26 8 - 78 U/L 04/05/2024 8:01 PM INTERNATIONAL MARKETING COORDINATOR [facility] Blood Venipuncture / Unknown 04/05/2024 7:37 PM INTERNATIONAL MARKETING COORDINATOR 04/05/2024 7:37 PM INTERNATIONAL MARKETING COORDINATOR Rafa Ramsey APRN, STATION ENGINEER CHEMISTRY ORDERABLES Fi nal Result [facility] [address] [place] [address] * (ABNORMAL) Comprehensive Metabolic Panel (Cmp) [id number] (04/05/2024 7:37 PM INTERNATIONAL MARKETING COORDINATOR) SODIUM 140 136 - 145 mmol/L 04/05/2024 8:01 PM INTERNATIONAL MARKETING COORDINATOR [facility] POTASSIUM 3.8 3.5 - 5.1 mmol/L 04/05/2024 8:[address] [facility] CHLORIDE 109(H) 98 - 107 mmol/L 04/05/2024 8:[address] [facility] CO2, VENOUS 21(L) 22 - 30 mmol/L 04/05/2024 8:[address] [facility] ANION GAP 13.8 <18.0 mmol/L 04/05/2024 8:[address] [facility] GLUCOSE 106(H) 70 - 99 mg/dL 04/05/2024 8:[address] [facility] BUN 11 10 - 20 mg/dL 04/05/2024 8:[address] [facility] CREATININE, BLOOD 0.80 0.60 - 1.00 mg/dL 04/05/2024 8:[address] [facility] BUN/CREATININE RATIO 14 12 - 20 ratio 04/05/2024 8:[address] [facility] TOTAL PROTEIN 7.0 6.0 - 8.0 g/dL 04/05/2024 8:[address] [facility] ALBUMIN 3.9 3.5 - 5.0 g/dL 04/05/2024 8:[address] [facility] A/G RATIO 1.3 1.0 - 2.2 04/05/2024 8:[address] [facility] CALCIUM 9.1 8.7 - 10.5 mg/dL 04/05/2024 8:[address] [facility] T BILI 0.2 0.2 - 1.2 mg/dL 04/05/2024 8:[address] [facility] SGOT (AST) 19 <43 U/L 04/05/2024 8:[address] [facility] SGPT (ALT) 22 <56 U/L 04/05/2024 8:[address] [facility] ALKALINE PHOSPHATASE 133 40 - 150 U/L 04/05/2024 8:[address] [facility] GFR, ESTIMATED >60 >=60 04/05/2024 8:01 PM INTERNATIONAL MARKETING COORDINATOR [facility] Comment: Creatinine Clearance is the preferred criteria for selecting drug dose adjustments in renally impaired patients. The GFR is provided as additional pertinent clinical information. GFR is reported in mL/min/1.73 sq m. Calculation based on the Chronic Kidney Disease Epidemiology Collaboration (CKD- EPI) equation refit without adjustment for race. GFR, EST. >60 >=60 025 8:01 PM INTERNATIONAL MARKETING COORDINATOR [facility] GFR, EST. NONAFRICAN >60 >=60 04/05/2024 8:01 PM INTERNATIONAL MARKETING COORDINATOR [facility] Blood Venipuncture / Unknown 04/05/2024 7:37 PM INTERNATIONAL MARKETING COORDINATOR 04/05/2024 7:37 PM INTERNATIONAL MARKETING COORDINATOR us Rafa Ramsey APRN, STATION ENGINEER CHEMISTRY ORDERABLES Fi nal Result [facility] [address] [place] [address] * (ABNORMAL) URINALYSIS REFLEX IF INDICATED BY ABNORMAL RESULTS (04/05/2024 7:31 PM INTERNATIONAL MARKETING COORDINATOR) SPECIFIC GRAVITY 1.005 1.003 - 1.030 04/05/2024 7:58 PM INTERNATIONAL MARKETING COORDINATOR [facility] URINE PH 7.0 5.0 - 9.0 04/05/2024 7:58 PM INTERNATIONAL MARKETING COORDINATOR [facility] WBC ESTERASE 500 /uL(A) Negative 04/05/2024 7:58 PM INTERNATIONAL MARKETING COORDINATOR [facility] NITRITE Negative Negative 04/05/2024 7:58 PM INTERNATIONAL MARKETING COORDINATOR [facility] PROTEIN, RANDOM URINE 15 mg/dL(A) Negative 04/05/2024 7:58 PM INTERNATIONAL MARKETING COORDINATOR [facility] URINE GLUCOSE, QUAL Negative Negative 04/05/2024 7:58 PM INTERNATIONAL MARKETING COORDINATOR [facility] URINE KETONES Negative Negative 04/05/2024 7:58 PM INTERNATIONAL MARKETING COORDINATOR [facility] UROBILINOGEN Normal Normal mg/dL 04/05/2024 7:58 PM INTERNATIONAL MARKETING COORDINATOR [facility] URINE BLOOD Negative Negative tab/ul 04/05/2024 7:58 PM INTERNATIONAL MARKETING COORDINATOR [facility] URINALYSIS COLOR Yellow 04/06/19 7:58 PM INTERNATIONAL MARKETING COORDINATOR [facility] URINALYSIS CLARITY Very Cloudy 04/05/2024 7:58 PM INTERNATIONAL MARKETING COORDINATOR [facility] WBC (Urine) 51-150(A) Negative, 0-5 /hpf 04/05/2024 7:58 PM INTERNATIONAL MARKETING COORDINATOR [facility] URINE RBC'S Negative Negative, 0-2 /hpf 04/05/2024 7:58 PM INTERNATIONAL MARKETING COORDINATOR [facility] EPITHELIAL CELLS Moderate amount /lpf 04/05/2024 7:58 PM INTERNATIONAL MARKETING COORDINATOR [facility] BACTERIA, URINE Few(A) Negative /hpf 04/05/2024 7:58 PM INTERNATIONAL MARKETING COORDINATOR [facility] Urine URINE SPECIMEN OBTAINED BY CLEAN CATCH PROCEDURE / Unknown Non-Phlebotomy Collection / Unknown 04/05/2024 7:31 PM INTERNATIONAL MARKETING COORDINATOR 04/05/2024 7:37 PM INTERNATIONAL MARKETING COORDINATOR Rafa Ramsey APRN, CNP URINE ORDERABLES Final Result Performing Organization Address City/[facility] [address]/ZIP Co de Phone Number [facility] [address] [place] [address] * Culture, Urine (04/05/2024 7:31 PM INTERNATIONAL MARKETING COORDINATOR) CULTURE RESULTS Mixed Growth of One or More Distal Urethral Contaminants 04/07/2024 10:45 AM INTERNATIONAL MARKETING COORDINATOR [facility] Urine URINE SPECIMEN OBTAINED BY CLEAN CATCH PROCEDURE / Unknown Non-Phlebotomy Collection / Unknown 04/05/2024 7:31 PM INTERNATIONAL MARKETING COORDINATOR 04/05/2024 7:37 PM INTERNATIONAL MARKETING COORDINATOR Rafa Ramsey APRN, CNP MICROBIOLOGY - GENERAL ORDERABLES Final Result [facility] [address] [place] [address], * RSV,SARS-COV-2,INFLUENZA A&B BY PCR (04/05/2024 6:48 PM INTERNATIONAL MARKETING COORDINATOR) FLU A Negative Negative, Error 04/05/2024 7:38 PM INTERNATIONAL MARKETING COORDINATOR [facility] FLU B Negative Negative 04/05/2024 7:38 PM INTERNATIONAL MARKETING COORDINATOR [facility] RESP SYNC VIRUS Negative Negative 7:38 PM INTERNATIONAL MARKETING COORDINATOR [facility] SARSCOV2 NOT DETECTED (Reference Range for this test is Not Detected) 04/05/2024 7:38 PM INTERNATIONAL MARKETING COORDINATOR [facility] Comment:This test was perfor med by a Reverse English Division Chair PCR Method. Swab NASOPHARYNGEAL STRUCTURE / Unknown Non-Phlebotomy Collection / Unknown 04/05/2024 6:48 PM INTERNATIONAL MARKETING COORDINATOR 04/05/2024 7:00 PM INTERNATIONAL MARKETING COORDINATOR Rafa Ramsey APRN, CNP MICROBIOLOGY - GENERAL ORDERABLES Final Result [facility] [address] [place] [address] * EKG 12 LEAD (04/05/2024 6:11 PM INTERNATIONAL MARKETING COORDINATOR) Ventricular Rate 83 BPM EXTERNAL EKG Atrial Rate 83 BPM EXTERNAL EKG P-R Interval 138 ms EXTERNAL EKG QRS Duration 86 ms EXTERNAL EKG Q-T Duration 404 ms EXTERNAL EKG QTC CALCULATION 474 ms EXTERNAL EKG P Ace 46 degrees EXTERNAL EKG R Ace -18 degrees EXTERNAL EKG T Ace 32 degrees EXTERNAL EKG 04/05/2024 6:11 PM INTERNATIONAL MARKETING COORDINATOR Impressions EXTERNAL EKG - 04/16/2024 11:41 PM CDT Normal sinus rhythm Normal ECG No previous ECGs available Confirmed by Michael Baker ([id number]) on 04/16/2024 11:41:49 PM Narrative Procedure Note Michael Baker MD - 04/16/2024 IMPRESSION: Normal sinus rhythm Normal ECG No previous ECGs available Confirmed by Michael Baker ([id number]) on 04/16/2024 11:41:49 PM us Brayden Arellano MD IMG ECG ORDERABLES Final R esult EXTERNAL EKG * EKG SCAN (04/05/2024 12:00 AM INTERNATIONAL MARKETING COORDINATOR) 04/05/2024 us Provider Scan IMG ECG ORDERABLES Final Result RESULTING AGENCY from Last 3 Months Insurance MEDICAID [employer] Care Teams Straight Edger Relationship Specialty Start Date End Date Rhianna Shepard PAC [address] [place] [address] PCP - General Advanced Practice Nurse 07/02/23
== END 2024-05-19 12:27 | disposition home or self-care (01) ==
LOC: CHSLAB 12:28
PROVIDERS: PCP Physician Assistant; Visit Provider Physician Assistant
DX: R11.0 Nausea (principal); R19.7 Diarrhea, unspecified; Z13.31 Encounter for screening for depression; Z59.5 Extreme poverty; Z68.41 Body mass index [BMI] 40.0-44.9, adult
CPT/HCPCS: 87045; 87177; 87209; 87427; 87449; 87493

== ENCOUNTER 2024-05-24 19:13 | Emergency (ER) | payer OTHER, SELFPAY ==
[2024-05-24 19:13] VITALS: BP 127/73; PULSE 107; RESP 18; TEMP 36.5; O2SAT 93
--- NOTE | 2024-05-24 19:20 | ECG_ITS ---
Test Date: 2024-05-24 19:33:38 Measurements Intervals [place] Rate: 98 P: 51 KS: 150 QRS: 13 QRSD: 104 T: 27 QT: 347 QTc: 444 Interpretive Statements SINUS RHYTHM LOW QRS VOLTAGE IN LIMB LEADS BORDERLINE ST-T WAVE ABNORMALITY- ANTERIOR LEADS BASELINE ARTIFACT- I, III, AVR, AVL, AVF, V1-V3 BORDERLINE ECG Compared to ECG 03/26/2024 20:52:53 NO SIGNIFICANT CHANGE Electronically Signed On 05-25-2024 07:33:48 CDT by Jeffery Flores D.O.
--- OUTSIDE RECORDS SUMMARY | 2024-05-24 19:21 | XMS_ITS | Clinical Summary ---
Author Organization [facility] Address [address] [facility], [place] [address] Phone Care Team Providers Care Manager Salt Name Role Phone Rhianna Shepard Primary Care [...] Department Care Team Description 04/07/2024 Telephone [facility] [address] [place] [address] Suha Herrera Patient Outreach 04/05/2024 6:12 PM NASCAR RACER - 04/05/2024 10:05 PM NASCAR RACER Emergency [facility] [address] [place] [address] Rafa Ramsey, CORPORATE DIRECTOR OF PHARMACY, [place] [employer] UTI (urinary tract infection) Discharge Disposition: Discharged [...] Comments Blood Pressure 97/57 04/05/2024 10:00 PM NASCAR RACER Pulse 71 04/05/2024 9:45 PM NASCAR RACER Temperature 36.5 C (97.7 F) 04/05/2024 6:17 PM NASCAR RACER Respiratory Rate 14 04/05/2024 8:14 PM NASCAR RACER Oxygen Saturation 93% 04/05/2024 10:00 PM NASCAR RACER Inhaled Oxygen Concentration - - Weight 124.2 kg (273 lb 13 oz) 04/05/2024 6:17 P M NASCAR RACER Height 182.9 cm (6') 04/05/2024 6:17 PM NASCAR RACER Body Mass Index 37.14 04/05/2024 6:17 PM NASCAR RACER Plan of Treatment Health Maintenance Due Date [...] CONTRAST Stat with Interpretation 04/05/2024 8:46 PM NASCAR RACER XR CHEST 2 VIEWS STAT 04/05/2024 8:27 PM NASCAR RACER CBC WITH AUTO DIFFERENTIAL STAT 04/05/2024 7:37 PM NASCAR RACER LIPASE STAT 04/05/2024 7:37 PM NASCAR RACER TROPONIN I, HIGH SENSITIVITY (HSTRP) STAT 04/05/2024 7:37 PM NASCAR RACER CMP (COMPREHENSIVE METABOLIC PANEL) STAT 04/05/2024 7:37 PM NASCAR RACER COMPLETE BLOOD COUNT (CBC) WITH DIFF STAT 04/05/2024 7:37 PM NASCAR RACER URINALYSIS REFLEX IF INDICATED BY ABNORMAL RESULTS STAT 04/05/2024 7:31 PM NASCAR RACER CULTURE, URINE STAT 04/05/2024 7:31 PM NASCAR RACER RSV,SARS-COV-2,INF LUENZA A&B BY PCR STAT 04/05/2024 6:48 PM NASCAR RACER EKG 12 LEAD STAT 04/05/2024 6:11 PM NASCAR RACER EKG SCAN 04/05/2024 12:00 AM NASCAR RACER from Last 3 Months Results * CT ABDOMEN PELVIS W/ CONTRAST (04/05/2024 8:46 PM NASCAR RACER) Anatomical Region Laterality Modality Abdomen N/A Computed Tomogra phy 04/05/2024 9:29 PM NASCAR RACER Impressions 04/05/2024 9:31 PM NASCAR RACER IMPRESSION: No acute process is seen. No findings are seen to explain the patient's symptoms. Narrative 04/05/2024 9:31 PM NASCAR RACER EXAM DESCRIPTION: CT ABDOMEN PELVIS W/ CONTRAST [...] Jitendra Miller M.D. KH: ANAYELI Report ID: [id number] Reading Location: [id number] Procedure Note Jitendra Miller MD - 04/05/2024 [...] signed by Jitendra GUADALUPE: ANAYELI Report ID: [id number] Reading Location: [id number] IMPRESSION: No acute process is seen. No findings are seen to explain the patient's symptoms. us Rafa Ramsey CORPORATE DIRECTOR OF PHARMACY, [employer] [employer] IMG CT ORDERABLES Final Result * XR CHEST 2 VIEWS (04/05/2024 8:27 PM NASCAR RACER) Anatomical Region Laterality Modality Chest N/A Digital Radiogra phy 04/05/2024 8:49 PM NASCAR RACER Impressions 04/05/2024 8:52 PM NASCAR RACER IMPRESSION: No acute cardiopulmonary abnormality. Narrative 04/05/2024 8:52 PM NASCAR RACER EXAM DESCRIPTION: XR CHEST 2 VIEWS REASON [...] signed by Jitendra GUADALUPE: ANAYELI Report ID: [id number] Reading Location: [id number] Procedure Note Jitendra Miller MD - 04/05/2024 [...] Jitendra Miller M.D. KH: ANAYELI Report ID: [id number] Reading Location: [place] [address] IMPRESSION: No acute cardiopulmonary abnormality. Rafa Ramsey APRN, CNP IMG DIAGNOSTIC ORDERABL ES Final Result * TROPONIN I, HIGH SENSITIVITY (HSTRP) (04/05/2024 7:37 PM NASCAR RACER) [facility] TROPONIN I, HIGH SENSITIVITY- [place] <3 <=14 ng/L 04/05/2024 8:04 PM NASCAR RACER [facility] Comment: High-sensitivity troponin I results are reported in ng/L making the result appear to be 1,000 times higher than the contemporary troponin I value which is reported in ng/ml. Results from [place]. Blood Venipuncture / Unknown 04/05/2024 7:37 PM NASCAR RACER 04/05/2024 7:37 PM NASCAR RACER Rafa Ramsey APRN, CNP CHEMISTRY ORDERABLES Fi nal Result [facility] [address] [place] [address] * CBC with Auto Differential (04/05/2024 7:37 PM NASCAR RACER) [facility] WBC 8.09 4.00 - 12.00 10(3)/mcL 04/05/2024 7:41 PM NASCAR RACER [facility] RBC 4.43 3.80 - 5.30 10(6)/mcL 04/05/2024 7:41 PM [facility] HEMOGLOBIN (HGB) 12.4 12.0 - 15.8 g/dL 04/05/2024 7:41 PM [facility] HEMATOCRIT (HCT) 38.3 36.0 - 47.0 % 04/05/2024 7:41 PM [facility] MCV 86.5 82.0 - 96.0 fL 04/05/2024 7:41 PM [facility] MCH 28.0 26.0 - 34.0 pg 04/05/2024 7:41 PM [facility] MCHC 32.4 31.0 - 36.0 g/dL 04/05/2024 7:41 PM [facility] PLATELET COUNT 297 140 - 440 10(3)/mcL 04/05/2024 7:41 PM [facility] RDW 13.5 11.8 - 15.5 % 04/05/2024 7:41 PM [facility] MPV 10.4 9.7 - 12.4 fL 04/05/2024 7:41 PM [facility] NEUTROPHILS 60.0 47.0 - 73.0 % 04/05/2024 7:41 PM [facility] LYMPHOCYTES 30.0 18.0 - 42.0 % 04/05/2024 7:41 PM [facility] MONOCYTES 6.3 4.0 - 12.0 % 04/05/2024 7:41 PM [facility] EOSINOPHILS 3.5 0.0 - 5.0 % 04/05/2024 7:41 PM [facility] BASOPHILS 0.2 0.0 - 1.0 % 04/05/2024 7:41 PM [facility] ABSOLUTE NEUTROPHILS 4.85 1.60 - 7.70 10(3)/mcL 04/05/2024 7:41 PM [facility] ABSOLUTE LYMPHOCYTES 2.43 1.30 - 3.20 10(3)/mcL 04/05/2024 7:41 PM NASCAR RACER [facility] ABSOLUTE MONOCYTES 0.51 0.20 - 1.00 10(3)/mcL 04/05/2024 7:41 PM NASCAR RACER [facility] ABSOLUTE EOSINOPHIL 0.28 0.00 - 0.40 10(3)/mcL 04/05/2024 7:41 PM NASCAR RACER [facility] ABSOLUTE BASOPHILS 0.02 0.00 - 0.10 10(3)/[facility] 04/05/2024 7:41 PM NASCAR RACER [facility] NRBC PER 100 WBC 0 04/06/19 7:41 PM NASCAR RACER [facility] Blood Venipuncture / Unknown 04/05/2024 7:37 PM NASCAR RACER 04/05/2024 7:37 PM NASCAR RACER Rafa Ramsey APRN, [place] HEMATOLOGY ORDERABLES F inal Result Performing Organization Address City/[facility]/ZIP Co de Phone Number [facility] [address] [place] [address] * Lipase [id number] (04/05/2024 7:37 PM NASCAR RACER) Pathologist [facility] LIPASE 26 8 - 78 U/L 04/05/2024 8:01 PM NASCAR RACER [facility] Blood Venipuncture / Unknown 04/05/2024 7:37 PM NASCAR RACER 04/05/2024 7:37 PM NASCAR RACER Rfaa Ramsey APRN, [place] CHEMISTRY ORDERABLES Fi nal Result [facility] [address] [place] [address] * (ABNORMAL) Comprehensive Metabolic Panel (Cmp) [id number] (04/05/2024 7:37 PM NASCAR RACER) SODIUM 140 136 - 145 mmol/L 04/05/2024 8:01 PM NASCAR RACER [facility] POTASSIUM 3.8 3.5 - 5.1 mmol/L 04/05/2024 8:01 PM [facility] CHLORIDE 109(H) 98 - 107 mmol/L 04/05/2024 8:01 PM [facility] CO2, VENOUS 21(L) 22 - 30 mmol/L 04/05/2024 8:01 PM [facility] ANION GAP 13.8 <18.0 mmol/L 04/05/2024 8:01 PM [facility] GLUCOSE 106(H) 70 - 99 mg/dL 04/05/2024 8:01 PM [facility] BUN 11 10 - 20 mg/dL 04/05/2024 8:01 PM [facility] CREATININE, BLOOD 0.80 0.60 - 1.00 mg/dL 04/05/2024 8:01 PM [facility] BUN/CREATININE RATIO 14 12 - 20 ratio 04/05/2024 8:01 PM [facility] TOTAL PROTEIN 7.0 6.0 - 8.0 g/dL 04/05/2024 8:01 PM [facility] ALBUMIN 3.9 3.5 - 5.0 g/dL 04/05/2024 8:01 PM [facility] A/G RATIO 1.3 1.0 - 2.2 04/05/2024 8:01 PM [facility] CALCIUM 9.1 8.7 - 10.5 mg/dL 04/05/2024 8:01 PM [facility] T BILI 0.2 0.2 - 1.2 mg/dL 04/05/2024 8:01 PM [facility] SGOT (AST) 19 <43 U/L 04/05/2024 8:01 PM [facility] SGPT (ALT) 22 <56 U/L 04/05/2024 8:01 PM [facility] ALKALINE PHOSPHATASE 133 40 - 150 U/L 04/05/2024 8:01 PM [facility] GFR, ESTIMATED >60 >=60 04/05/2024 8:01 PM NASCAR RACER [facility] Comment: Creatinine Clearance is the preferred criteria for selecting drug dose adjustments in renally impaired patients. The GFR is provided as additional pertinent clinical information. GFR is reported in mL/min/1.73 sq m. Calculation based on the Chronic Kidney Disease Epidemiology Collaboration (CKD- EPI) equation refit without adjustment for race. GFR, EST. >60 >=60 025 8:01 PM NASCAR RACER [facility] GFR, EST. NONAFRICAN >60 >=60 04/05/2024 8:01 PM NASCAR RACER [facility] Blood Venipuncture / Unknown 04/05/2024 7:37 PM NASCAR RACER 04/05/2024 7:37 PM NASCAR RACER us Rafa Ramsey APRN, [place] CHEMISTRY ORDERABLES Fi nal Result [facility] [address] [place] [address] * (ABNORMAL) URINALYSIS REFLEX IF INDICATED BY ABNORMAL RESULTS (04/05/2024 7:31 PM NASCAR RACER) SPECIFIC GRAVITY 1.005 1.003 - 1.030 04/05/2024 7:58 PM NASCAR RACER [facility] URINE PH 7.0 5.0 - 9.0 04/05/2024 7:58 PM NASCAR RACER [facility] WBC ESTERASE 500 /uL(A) Negative 04/05/2024 7:58 PM NASCAR RACER [facility] NITRITE Negative Negative 04/05/2024 7:58 PM NASCAR RACER [facility] PROTEIN, RANDOM URINE 15 mg/dL(A) Negative 04/05/2024 7:58 PM NASCAR RACER [facility] URINE GLUCOSE, QUAL Negative Negative 04/05/2024 7:58 PM NASCAR RACER [facility] URINE KETONES Negative Negative 04/05/2024 7:58 PM NASCAR RACER [facility] UROBILINOGEN Normal Normal mg/dL 04/05/2024 7:58 PM NASCAR RACER [facility] URINE BLOOD Negative Negative tab/ul 04/05/2024 7:58 PM NASCAR RACER [facility] URINALYSIS COLOR Yellow 04/06/19 7:58 PM NASCAR RACER [facility] URINALYSIS CLARITY Very Cloudy 04/05/2024 7:58 PM NASCAR RACER [facility] WBC (Urine) 51-150(A) Negative, 0-5 /hpf 04/05/2024 7:58 PM NASCAR RACER [facility] URINE RBC'S Negative Negative, 0-2 /hpf 04/05/2024 7:58 PM NASCAR RACER [facility] EPITHELIAL CELLS Moderate amount /lpf 04/05/2024 7:58 PM NASCAR RACER [facility] BACTERIA, URINE Few(A) Negative /hpf 04/05/2024 7:58 PM NASCAR RACER [facility] Urine URINE SPECIMEN OBTAINED BY CLEAN CATCH PROCEDURE / Unknown Non-Phlebotomy Collection / Unknown 04/05/2024 7:31 PM NASCAR RACER 04/05/2024 7:37 PM NASCAR RACER Rafa Ramsey APRN, CNP URINE ORDERABLES Final Result Performing Organization Address City/[facility]/ZIP Co de Phone Number [facility] [address] [place] [address] * Culture, Urine (04/05/2024 7:31 PM NASCAR RACER) CULTURE RESULTS Mixed Growth of One or More Distal Urethral Contaminants 04/07/2024 10:45 AM NASCAR RACER [facility] Urine URINE SPECIMEN OBTAINED BY CLEAN CATCH PROCEDURE / Unknown Non-Phlebotomy Collection / Unknown 04/05/2024 7:31 PM NASCAR RACER 04/05/2024 7:37 PM NASCAR RACER Rafa Ramsey APRN, CNP MICROBIOLOGY - GENERAL ORDERABLES Final Result [facility] [address] [place] [address], * RSV,SARS-COV-2,INFLUENZA A&B BY PCR (04/05/2024 6:48 PM NASCAR RACER) FLU A Negative Negative, Error 04/05/2024 7:38 PM NASCAR RACER [facility] FLU B Negative Negative 04/05/2024 7:38 PM NASCAR RACER [facility] RESP SYNC VIRUS Negative Negative 7:38 PM NASCAR RACER [facility] SARSCOV2 NOT DETECTED (Reference Range for this test is Not Detected) 04/05/2024 7:38 PM NASCAR RACER [facility] Comment:This test was perfor med by a Reverse Children Teacher PCR Method. Swab NASOPHARYNGEAL STRUCTURE / Unknown Non-Phlebotomy Collection / Unknown 04/05/2024 6:48 PM NASCAR RACER 04/05/2024 7:00 PM NASCAR RACER Rafa Ramsey APRN, CNP MICROBIOLOGY - GENERAL ORDERABLES Final Result [facility] [address] [place] [address] * EKG 12 LEAD (04/05/2024 6:11 PM NASCAR RACER) Ventricular Rate 83 BPM EXTERNAL EKG Atrial Rate 83 BPM EXTERNAL EKG P-R Interval 138 ms EXTERNAL EKG QRS Duration 86 ms EXTERNAL EKG Q-T Duration 404 ms EXTERNAL EKG QTC CALCULATION 474 ms EXTERNAL EKG P [place] 46 degrees EXTERNAL EKG R [place] -18 degrees EXTERNAL EKG T [place] 32 degrees EXTERNAL EKG 04/05/2024 6:11 PM NASCAR RACER Impressions EXTERNAL EKG - 04/16/2024 11:41 PM CDT Normal sinus rhythm Normal ECG No previous ECGs available Confirmed by Michael Baker ([id number]) on 04/16/2024 11:41:49 PM Narrative Procedure Note Michael Baker MD - 04/16/2024 IMPRESSION: Normal sinus rhythm Normal ECG No previous ECGs available Confirmed by Michael Baker ([id number]) on 04/16/2024 11:41:49 PM us Brayden Arellano MD IMG ECG ORDERABLES Final R esult EXTERNAL EKG * EKG SCAN (04/05/2024 12:00 AM NASCAR RACER) 04/05/2024 us Provider Scan IMG ECG ORDERABLES Final Result RESULTING AGENCY from Last 3 Months Insurance MEDICAID [employer] Care Teams Manager Salt Relationship Specialty Start Date End Date Rhianna Shepard PAC [address] [place] [address] PCP - General Advanced Practice Nurse 07/02/23
--- OUTSIDE RECORDS SUMMARY | 2024-05-24 19:21 | XMS_ITS | Clinical Summary ---
Author Organization [facility] Address [address] [place] [address] Care Team Providers Care Photo Booth Operator Name Role Phone Rhianna Shepard Primary Care Provider [phone] Social History Tobacco Use Types Packs/Day Years [...] 1996 Cervical Cancer Screening with HPV 1996 Pneumococcal Vaccine: 50+ Ye ars (1 of 1 - PCV) 2016 Zoster Vaccines (1 of 2) 2016 Mammogram [...] followup in one year would seem adequate. Rhianna WALLACE MAMMO Final Result from Last 3 Months or Most Recently Relevant to Health Maintenance Insurance [employer] Care Teams Photo Booth Operator Relationship Specialty Start Date End Date Rhianna Shepard PA [address] [address] PCP - General PHYSICIAN CHEMICAL SALES REPRESENTATIVE 11/18/19
--- OUTSIDE RECORDS SUMMARY | 2024-05-24 19:21 | XMS_ITS | Encounter Summary ---
Author Organization [facility] Address [address] [place] [address] Care Team Providers Care Lining Cementer Name Role Phone Rhianna Shepard Primary Care Provider [phone] Encounter Details Date Type Department Care Team (Late st Contact Info) Description 07/13/2018 Abstract [facility] [address] [place] [address] , Generic Conversion, Social History Tobacco Use [...] on filedocumented in this encounter Care Teams Lining Cementer Relationship Specialty Start Date End Date Rhianna Shepard PA [address] [place] [address] PCP - General PHYSICIAN LAN ANALYST 11/18/19 documented as of this encounter
--- OUTSIDE RECORDS SUMMARY | 2024-05-24 19:21 | XMS_ITS | CONTINUITY OF CARE DOCUMENT ---
Author Name rosalieser, rosalieser Address Unknown Organization [facility] Address [address] [address] [place] [address] Phone [phone] Care Team Providers Care Teacher Adventure Education Name Role Phone Kathy Copeland MD Unavailable AMY FREEMAN MD Unavailable [phone] AMY FREEMAN MD Unavailable PROBLEMS Condition Status Date Provider Notes Shortness of breath (SOB) active Kathy welch MD Tobacco abuse active Kathy Copeland MD COPD active Kathy Copeland MD Bipolar disorder active Kathy Copeland MD ENCOUNTERS Date Type Provider Location Encounter Diag nosis - In-person encounter Office Visit Kathy Copeland MD [facility] Office - In-person encounter Office Visit Kathy Copeland MD [place] Office - In-person encounter Office Visit Kathy Copeland MD [facility] Office Shortness of breath (SOB)Tobacco abuseCOPDBipolar [...] Payer name Policy type / Coverage type [place] red libertarian [place] MEDICAID (2) Medicaid [id number] TREATMENT PLAN Date Name Performer Cardiology:On albuterol [...] Kathy Copeland MD Date Name DLCO - 07543 FRC - 75245 FVC - 18868 HISTORY OF PROCEDURES Procedure Date Procedure Name Provider Procedure Notes S tatus SNOMED-CT: 545187152 313971 Current Medications Documented Kathy Copeland MD completed SNOMED-CT: 206422473 Smoking Cessation Counseling Kathy Copeland MD completed SNOMED-CT: 27105285 Physical Exam, Performed: Pulse Exam of Foot Kathy Copeland MD completed SNOMED-CT: 815222706 097274 Current Medications Documented Kathy Copeland MD completed SNOMED-CT: 464045917 Smoking Cessation Counseling Kathy Copeland MD completed SNOMED-CT: 59450775 Physical Exam, Performed: Pulse Exam of Foot Kathy Copeland MD completed SNOMED-CT: 419545011 826235 Current Medications Documented Kathy Copeland MD completed SNOMED-CT: 866614686 Smoking Cessation Counseling Kathy Copeland MD completed SNOMED-CT: 88843430 Physical Exam, Performed: Pulse Exam of Foot Kathy Copeland MD completed
--- OUTSIDE RECORDS SUMMARY | 2024-05-24 19:28 | XMS_ITS | CONTINUITY OF CARE DOCUMENT ---
Author Name rosalieser, rosalieser Address Unknown Organization [facility] Address [address] [address] [place] [address] Phone [phone] Care Team Providers Care Truck Trailer Final Inspector Name Role Phone Kathy Copeland MD Unavailable AMY FREEMAN MD Unavailable AMY FREEMAN MD Unavailable PROBLEMS Condition Status Date Provider Notes Shortness of breath (SOB) active Kathy welch MD Tobacco abuse active Kathy Copeland MD COPD active Kathy Copeland MD Bipolar disorder active Kathy Copeland MD ENCOUNTERS Date Type Provider Location Encounter Diag nosis - In-person encounter Office Visit Kathy Copeland MD [facility] Office - In-person encounter Office Visit Kathy Copeland MD [place] Office - In-person encounter Office Visit Kathy Copeland MD [facility] Shortness of breath (SOB)Tobacco abuseCOPDBipolar disorder [...] Payer name Policy type / Coverage type [place] red [employer] party ID [id number] MEDICAID (2) Medicaid [id number] TREATMENT PLAN Date Name Performer Cardiology:On albuterol [...] Kathy Copeland MD Date Name DLCO - 17598 FRC - 08469 FVC - 31594 HISTORY OF PROCEDURES Procedure Date Procedure Name Provider Procedure Notes S tatus SNOMED-CT: 856835140 658787 Current Medications Documented Kathy Copeland MD completed SNOMED-CT: 602729494 Smoking Cessation Counseling Kathy Copeland MD completed SNOMED-CT: 55010491 Physical Exam, Performed: Pulse Exam of Foot Kathy Copeland MD completed SNOMED-CT: 545684078 688604 Current Medications Documented Kathy Copeland MD completed SNOMED-CT: 928677227 Smoking Cessation Counseling Kathy Copeland MD completed SNOMED-CT: 97121665 Physical Exam, Performed: Pulse Exam of Foot Kathy Copeland MD completed SNOMED-CT: 493001374 698105 Current Medications Documented Kathy Copeland MD completed SNOMED-CT: 150037789 Smoking Cessation Counseling Kathy Copeland MD completed SNOMED-CT: 70870406 Physical Exam, Performed: Pulse Exam of Foot Kathy Copeland MD completed
--- NOTE | 2024-05-24 19:42 | PC.NURSE ---
ATTEMPTED IV LINE PLACEMENT X 2 WITH NO SUCCESS. WILL HAVE FREYA RN LOOK FOR IV SITE PLACEMENT
[2024-05-24] MEDS: DIPHENOXYLATE/ATROPINE (*CRX) 2.5 MG TABLET 1 TABLET PO (19:47)
[2024-05-24] MEDS: TOLNAFTATE 1% POWDER 45 GM BTL 1 APPLIC TOPICAL (19:52)
--- NOTE | 2024-05-24 19:55 | PC.NURSE ---
KRIS WITH LAB AT THE BEDSIDE
[2024-05-24] MEDS: SODIUM CHLORIDE 0.9% IV 1,000 ML 999 ML IV CONT (19:58)
[2024-05-24 20:13] LABS: Basophils Absolute Auto 0.02 K/mm3 (0.00-0.10); Basophils Percent Auto 0.2 % (0.0-1.0); Eosinophils Absolute Auto 0.07 K/mm3 (0.02-0.50); Eosinophils Percent Auto 0.7 % (1.0-6.0); Hematocrit 37.9 % (35.0-49.0); Immature Granulocyte Absolute 0.04 K/mm3 (0.00-0.00); Immature Granulocyte Percent A 0.4 % (0.0-0.0); Lymphocytes Absolute Auto 1.63 K/mm3 (1.10-4.50); Lymphocytes Percent Auto 17.1 % (18.0-42.0); Mean Corpuscular HGB Conc 31.7 g/dL (32-36); Mean Corpuscular Hemoglobin 27.7 pg (27.0-31.0); Mean Corpuscular Volume 87.5 fL (78.0-102.0); Monocytes Absolute Auto 0.65 K/mm3 (0.10-0.90); Monocytes Percent Auto 6.8 % (2.0-11.0); Neutrophils Absolute Auto 7.12 K/mm3 (1.70-7.20); Neutrophils Percent Auto 74.8 % (50.0-70.0); Platelet Count Result 268 K/mm3 (150-420); Red Blood Count 4.33 M/mm3 (4.20-5.40); Red Cell Distribution Width 13.5 % (11.6-14.4); White Blood Count 9.5 K/mm3 (4.8-10.8)
[2024-05-24 20:27] LABS: INR 0.9; Prothrombin Time 10.3 Seconds (9.50-12.1)
[2024-05-24 20:31] LABS: Lactic Acid Reflex 1.3 mmol/L (0.4-2.0)
[2024-05-24 20:37] LABS: Alanine Aminotransferase 29 U/L (14-59); Albumin Level 3.1 g/dL (3.4-5.0); Alkaline Phosphatase 128 U/L (46-116); Anion Gap 9 mmol/L (4-12); Aspartate Amino Transferase 20 U/L (15-37); Bilirubin,Total 0.3 mg/dL (0.00-1.00); Blood Urea Nitrogen 9 mg/dL (7-18); Calcium 8.8 mg/dL (8.5-10.1); Carbon Dioxide 26 mmol/L (21-32); Chloride 100 mmol/L (98-108); Estimated CRCL calculation 100 ml/min; Estimated Glomerular Filt Rate > 60; Glucose 99 mg/dL (70-99); Lipase 16 U/L (16-77); Osmolality Calculated 278 mOsm/kg (285-295); Potassium 3.2 mmol/L (3.5-5.1); Sodium 135 mmol/L (136-145)
--- NOTE | 2024-05-24 20:57 | ED.NAVMDI ---
HPI - Nausea/Vomiting/Diarrhea General Chief complaint: Nausea/Vomiting/Diarrhea Stated complaint: nausea Time Seen by Provider: 05/24/24 19:20 Source: patient Mode of arrival: ambulatory Limitations: no limitations History of Present Illness HPI Narrative: this is a 59-year-old female with history of IBS presents with a 2 week history of off and on diarrhea has tried [id number] medications with minimal relief has followed with her primary and has an appointment this coming Sunday. There is no nausea vomiting no abdominal pain no shortness of breath no chest pain no fever chills. MD elicited complaint: diarrhea Onset (ago): week(s) Related Data Home Medications ?Medication ?Instructions ?Recorded ?Confirmed ?Last Taken ?Type omeprazole magnesium 20 mg 20 mg PO DAILY 04/13/19 12/31/23 11/13/23 History tablet,delayed release (Prilosec OTC) atorvastatin 40 mg tablet 60 mg PO DAILY 06/01/21 12/31/23 11/13/23 History fluoxetine 40 mg capsule (Prozac) 20 mg PO BID 06/01/21 12/31/23 11/13/23 History multivitamin with minerals 1 tablet PO DAILY 12/01/21 12/31/23 11/13/23 History lisinopril 40 mg tablet 40 mg PO DAILY 10/31/22 12/31/23 11/13/23 History olanzapine 10 mg tablet 10 mg PO HS 11/17/22 12/31/23 11/13/23 History metformin 500 mg tablet,extended 500 mg PO BID 09/28/23 12/31/23 11/13/23 History release 24 hr topiramate 50 mg tablet 50 mg PO DAILY 09/28/23 12/31/23 11/13/23 History Allergies Allergy/AdvReac Type Severity Reaction Status Date / Time No Known Allergies Allergy Unknown Verified 03/26/24 22:00 Review of Systems Review of Systems: All systems reviewed & are unremarkable except as noted in HPI and below PMFSH Past Medical History Medical History Insect bite Hx MRSA infection Congestive heart failure Hypertension COPD (chronic obstructive pulmonary disease) Asthma Anxiety Depression Surgical History Surgical History History of incision and drainage Several areas to left forearm History of cholecystectomy History of hysterectomy History of tubal ligation Family History Family History Father Heart disease Mother , Mother at age 60. Diabetes mellitus Sibling Rheumatoid arthritis Has RA in her hands, sees assistant professor of radiology. Social History Social History Social History: The patient is but lives with her boyfriend now and her daughter and granddaughter. The patient has 2 children. She denies any alcohol or any other illicit drugs. The patient works in the [employer] And she is a former smoker. 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 Code status full code Smoking packs per day: 1.5 Smoking cigarettes per day: 30.0 Years smoked: 30 Smoking pack-years: 45.00 Smoking status: Former smoker Tobacco type: cigarettes Second hand tobacco smoke exposure: Yes Alcohol intake: never Substance use: never Substance use type: does not use Lack of Transportation: No Lack of Food: Sometimes True Current Housing: I Have Housing Concerned About Future Housing: No Difficulty Paying Gas/Electric Bills: No Difficulty Paying for Meds: No Currently Unemployed: No Education: High School Diploma/GED Difficulty w/ Childcare or Family Care: No Spiritual care concerns: No Exam Const: General: healthy appearing, no acute distress and alert Nutritional Appearance: well nourished and obese Orientation/consciousness: patient oriented x3 Limitations: no limitations Neck: Neck: normal visual inspection, no lymphadenopathy and no meningeal signs Chest: Chest palpation & inspection: normal inspection of the chest Resp: Effort & Inspection: normal respiratory effort Auscultation: clear to auscultation bilaterally Cardio: Rate: regular rate Rhythm: regular rhythm GI: GI Palp: Yes Soft to palpation Auscultation: normal bowel sounds : General: Yes bladder normal to palpation Urinary Catheter: Urinary Catheter: patent and draining Skin: General skin exam: normal color Rashes: no rashes Wounds: wounds noted Other: Erythema in the groin area that is moist and tender Neuro: General: patient oriented x3 and moves all extremities Extrem: General: normal to inspection and no clubbing, cyanosis or edema Course Course Emergency Course: blood work performed and shows a potassium level of 3.2 with a normal white blood cell count EKG shows normal sinus rhythm, patient received bolus of normal saline, nystatin powder to affected area in the groin, a dose of Diflucan and a dose of p.o. potassium. For diarrhea patient given a dose of p.o. Lomotil. Patient states that she has had a stool workup that was negative. Vital Signs Vital signs: Vital Signs Temperature 36.5 C 05/24/24 19:13 Pulse Rate 107 H 05/24/24 19:13 Respiratory Rate 18 05/24/24 19:13 Blood Pressure 127/73 05/24/24 19:13 Pulse Oximetry 93 05/24/24 19:13 Oxygen Delivery Room Air 05/24/24 19:13 Temperature 36.5 C 05/24/24 19:13 Pulse Rate 107 H 05/24/24 19:13 Respiratory Rate 18 05/24/24 19:13 Blood Pressure 127/73 05/24/24 19:13 Pulse Oximetry 93 05/24/24 19:13 Oxygen Delivery Room Air 05/24/24 19:13 MDM - Nausea/Vomiting/Diarrhea Lab Data 05/24/24 20:04 05/24/24 20:04 Labs: Lab Results 05/24/24 Range/Units 20:04 WBC 9.5 (4.8-10.8) K/mm3 RBC 4.33 (4.20-5.40) M/mm3 Hgb 12.0 (12.0-15.0) g/dL Hct 37.9 (35.0-49.0) % MCV 87.5 (78.0-102.0) fL MCH 27.7 (27.0-31.0) pg MCHC 31.7 L (32-36) g/dL RDW 13.5 (11.6-14.4) % Plt Count 268 (150-420) K/mm3 MPV 10.0 (9.2-11.8) fl Immature Gran % (Auto) 0.4 H (0.0-0.0) % Neut % (Auto) 74.8 H (50.0-70.0) % Lymph % (Auto) 17.1 L (18.0-42.0) % [place] % (Auto) 6.8 (2.0-11.0) % Eos % (Auto) 0.7 L (1.0-6.0) % Baso % (Auto) 0.2 (0.0-1.0) % Lymph # (Auto) 1.63 (1.10-4.50) K/mm3 [place] # (Auto) 0.65 (0.10-0.90) K/mm3 Eos # (Auto) 0.07 (0.02-0.50) K/mm3 Baso # (Auto) 0.02 (0.00-0.10) K/mm3 Abs Immat Gran (auto) 0.04 H (0.00-0.00) K/mm3 Absolute Neuts (auto) 7.12 (1.70-7.20) K/mm3 Absolute Nucleated RBC 0.00 (0.00-0.00) K/mm3 Nucleated RBC % 0.0 (0-0.0) % PT 10.3 (9.50-12.1) Seconds INR 0.9 APTT 30.0 (23.9-30.70) Sec Sodium 135 L (136-145) mmol/L Potassium 3.2 L (3.5-5.1) mmol/L Chloride 100 (98-108) mmol/L Carbon Dioxide 26 (21-32) mmol/L Anion Gap 9 (4-12) mmol/L BUN 9 (7-18) mg/dL Creatinine 0.71 (0.55-1.02) mg/dL Estim Creat Clear Calc 100 ml/min Estimated GFR > 60 (59 - ) Glucose 99 (70-99) mg/dL Calculated Osmolality 278 L (285-295) mOsm/kg Lactic Acid 1.3 (0.4-2.0) mmol/L Calcium 8.8 (8.5-10.1) mg/dL Total Bilirubin 0.3 (0.00-1.00) mg/dL AST 20 (15-37) U/L ALT 29 (14-59) U/L Alkaline Phosphatase 128 H (46-116) U/L Total Protein 7.0 (6.4-8.2) g/dL Albumin 3.1 L (3.4-5.0) g/dL Lipase 16 (16-77) U/L Critical Care Time Critical Care Time Critical Care Time: No Discharge Plan Discharge Clinical Impression: Vaginal yeast infection, Acute hypokalemia Diarrhea Qualifiers: Diarrhea type: unspecified type Qualified Code(s): R19.7 - Diarrhea, unspecified Patient Disposition: Home Condition: Stable Instructions: Antibiotic Form, Hypokalemia (ED), Yeast Infection (ED), Acute Diarrhea (ED) Additional Instructions: advised patient to take medication as prescribed and follow-up with primary physician as scheduled. Patient Language: Romansh Prescriptions: New nystatin 100,000 unit/gram powder 1 applic topical TID 7 Days Qty: 15 0RF Rx Instructions: applied a vaginal area diphenoxylate-atropine [Lomotil] 2.5-0.025 mg tablet 1 tablet PO TID PRN (Reason: diarrhea) Qty: 14 0RF potassium chloride [K-Tab] 20 mEq tablet extended release 20 meq PO BID 3 Days Qty: 6 0RF No Action omeprazole magnesium [Prilosec OTC] 20 mg Tablet,Delayed Release (Dr/Ec) 20 mg PO DAILY lisinopril 40 mg tablet 40 mg PO DAILY olanzapine 10 mg tablet 10 mg PO HS tramadol 50 mg tablet 50 mg PO Q6H PRN (Reason: pain) Qty: 15 0RF nitrofurantoin monohyd/m-cryst [Macrobid] 100 mg capsule 100 mg PO Q12H 7 Days Qty: 14 0RF Rx Instructions: must administer with a meal/food magnesium oxide 400 mg magnesium tablet 400 mg PO DAILY Qty: 10 0RF fluoxetine [Prozac] 40 mg capsule 20 mg PO BID atorvastatin 40 mg tablet 60 mg PO DAILY metformin 500 mg tablet extended release 24 hr 500 mg PO BID topiramate 50 mg tablet 50 mg PO DAILY prednisone 20 mg tablet 20 mg PO DAILY 5 Days Qty: 5 0RF cyclobenzaprine 10 mg tablet 10 mg PO TID PRN (Reason: muscle spasm) Qty: 14 0RF ciprofloxacin HCl [Cipro] 250 mg tablet 250 mg PO Q12H Qty: 10 0RF ondansetron 4 mg tablet,disintegrating 4 mg PO Q4H 0 Days Qty: 10 0RF Rx Instructions: 1st dose 1-2 hr before radiation multivitamin with minerals Tablet 1 tablet PO DAILY alprazolam 1 mg tablet 1 mg PO DAILY PRN (Reason: Anxiety) Qty: 1 0RF albuterol sulfate 90 mcg/actuation HFA aerosol inhaler 2 puff INHALATION Q4H PRN (Reason: Wheezing) Qty: 1 0RF Follow-up/Referrals: Shepard,ROBERT Moctezuma [Primary Care Provider] - Time of Disposition: 21:05
[2024-05-24] MEDS: FLUCONAZOLE 150 MG TABLET PO (21:04)
[2024-05-24] MEDS: POTASSIUM BICARBONATE 25 MEQ TABEF 50 MEQ PO (21:04)
--- NOTE | 2024-05-24 21:09 | PC.NURSE ---
PATIENT HAS IV FLUIDS INFUSING TO LEFT HAND. SITE WITHOUT REDNESS OR IRRITATION. PLAN IS TO DISCHARGE AFTER IV FLUIDS HAVE COMPLETED. EDUCATION WAS COMPLETED ON HOW TO TREAT YEAST INFECTION TO ABDOMINAL FOLDS AND GROIN AREA.
[2024-05-24 21:41] VITALS: BP 127/84; PULSE 87; RESP 18; O2SAT 100
== END 2024-05-24 21:41 | disposition home or self-care (01) ==
PROVIDERS: Emergency Provider Emergency Medicine; PCP Physician Assistant
DX: B37.31 Acute candidiasis of vulva and vagina (principal); E87.6 Hypokalemia; R19.7 Diarrhea, unspecified; I11.0 Hypertensive heart disease with heart failure; I50.9 Heart failure, unspecified; J44.9 Chronic obstructive pulmonary disease, unspecified; Z87.891 Personal history of nicotine dependence
CPT/HCPCS: 36415; 80053; 83605; 83690; 85025; 85610; 85730; 93005; 96360; 99283; A9270; J7030

== ENCOUNTER 2024-05-26 22:30 | Emergency (ER) | payer OTHER, SELFPAY ==
--- NOTE | ~2024-05-26 | CT_ITS ---
CT of the Abdomen and Pelvis: Indication: Diarrhea, abdominal pain Technique: 2.5 mm axial scans were obtained through the abdomen and pelvis following intravenous adm inistration of 100 cc of Omnipaque 350. Dose reduction technique was used on this scan by utilizing a utomated exposure control and iterative reconstruction technique. The dose-length product (DLP) was 1 527.39 mGy-cm. COMPARISON: 04/22/2024 Findings: Scans through the lung bases demonstrate areas of linear bibasilar scarring. The liver, spleen, pancreas, adrenals and kidneys are within normal limits. Cholecystectomy clips are present. There are atherosclerotic calcifications of the aorta. No lymphadenopathy. No bowel obstruction or bowel wall thickening. Small fat-containing umbilical hernia present. Images through the pelvis were performed. Urinary bladder unremarkable. No pelvic mass. Status post h ysterectomy. No ascites. Impression: No acute abnormalities seen. Small fat-containing umbilical hernia. Reviewed, dictated and finalized at [facility]. Impression: No acute abnormalities seen. Small fat-containing umbilical hernia.
--- NOTE | 2024-05-26 22:45 | ECG_ITS ---
Test Date: 2024-05-26 22:47:55 Measurements Intervals Ponder Rate: 78 P: 50 MO: 137 QRS: 30 QRSD: 106 T: 49 QT: 395 QTc: 452 Interpretive Statements SINUS RHYTHM WITH SINUS ARRHYTHMIA LOW QRS VOLTAGE IN PRECORDIAL LEADS PATTERN CONSISTENT WITH PULMONARY DISEASE BORDERLINE T WAVE ABNORMALITY- ANTERIOR LEADS BASELINE ARTIFACT- I, II, III, AVR, AVL, AVF, V1-V6 BORDERLINE ECG Compared to ECG 05/24/2024 19:33:38 No significant changes Electronically Signed On 05-28-2024 14:17:08 CDT by Jeffery Flores D.O.
--- OUTSIDE RECORDS SUMMARY | 2024-05-27 07:21 | XMS_ITS | Encounter Summary ---
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
--- OUTSIDE RECORDS SUMMARY | 2024-05-27 07:21 | XMS_ITS | CONTINUITY OF CARE DOCUMENT ---
Author Name rosalieser, rosalieser Address Unknown Organization [facility] Address [address] [place] [address] Phone [phone] Care Team Providers Care Air Turning Machine Feeder Name Role Phone Kathy Copeland MD Unavailable AMY FREEMAN MD Unavailable AMY FREEMAN MD Unavailable [phone] PROBLEMS Condition Status Date Provider Notes Shortness of breath (SOB) active Kathy welch MD Tobacco abuse active Kathy Copeland MD COPD active Kathy Copeland MD Bipolar disorder active Kathy Copeland MD ENCOUNTERS Date Type Provider Location Encounter Diag nosis - In-person encounter Office Visit Kathy Copeland MD [facility] - In-person encounter Office Visit Kathy Copeland MD [place] [facility] - In-person encounter Office Visit Kathy Copeland MD [facility] Shortness of breath (SOB)Tobacco abuseCOPDBipolar disorder [...] Payer name Policy type / Coverage type [place] [employer] [id number] MED[place] (2) Medicaid [id number] TREATMENT PLAN Date Name Performer Cardiology:On albuterol [...] Kathy Copeland MD Date Name DLCO - 05966 FRC - 83118 FVC - 76954 HISTORY OF PROCEDURES Procedure Date Procedure Name Provider Procedure Notes S tatus SNOMED-CT: 241443001 [id number] Current Medications Documented Kathy Copeland MD completed SNOMED-CT: 970915958 Smoking Cessation Counseling Kathy Copeland MD completed SNOMED-CT: 66067034 Physical Exam, Performed: Pulse Exam of Foot Kathy Copeland MD completed SNOMED-CT: 522937453 513845 Current Medications Documented Kathy Copeland MD completed SNOMED-CT: 541306871 Smoking Cessation Counseling Kathy Copeland MD completed SNOMED-CT: 29665342 Physical Exam, Performed: Pulse Exam of Foot Kathy Copeland MD completed SNOMED-CT: 326509107 699698 Current Medications Documented Kathy Copeland MD completed SNOMED-CT: 778193603 Smoking Cessation Counseling Kathy Copeland MD completed SNOMED-CT: 03984648 Physical Exam, Performed: Pulse Exam of Foot Kathy Copeland MD completed
--- OUTSIDE RECORDS SUMMARY | 2024-05-27 07:21 | XMS_ITS | Clinical Summary ---
Author Organization [facility] Address [address] [facility], [place] [address] Phone Care Team Providers Care Chief Chemist Name Role Phone Rhianna Shepard Primary Care [...] Department Care Team Description 04/07/2024 Telephone [facility] [address] [place] [address] Suha Herrera Patient Outreach 04/05/2024 6:12 PM MEDICAL CARE EVALUATION SPECIALIST - 04/05/2024 10:05 PM MEDICAL CARE EVALUATION SPECIALIST Emergency [facility] [address] [place] [address] Rafa Ramsey, SUB MASTER, SALES HOST UTI (urinary tract infection) Discharge Disposition: Discharged [...] Comments Blood Pressure 97/57 04/05/2024 10:00 PM MEDICAL CARE EVALUATION SPECIALIST Pulse 71 04/05/2024 9:45 PM MEDICAL CARE EVALUATION SPECIALIST Temperature 36.5 C (97.7 F) 04/05/2024 6:17 PM MEDICAL CARE EVALUATION SPECIALIST Respiratory Rate 14 04/05/2024 8:14 PM MEDICAL CARE EVALUATION SPECIALIST Oxygen Saturation 93% 04/05/2024 10:00 PM MEDICAL CARE EVALUATION SPECIALIST Inhaled Oxygen Concentration - - Weight 124.2 kg (273 lb 13 oz) 04/05/2024 6:17 P M MEDICAL CARE EVALUATION SPECIALIST Height 182.9 cm (6') 04/05/2024 6:17 PM MEDICAL CARE EVALUATION SPECIALIST Body Mass Index 37.14 04/05/2024 6:17 PM MEDICAL CARE EVALUATION SPECIALIST Plan of Treatment Health Maintenance Due Date [...] CONTRAST Stat with Interpretation 04/05/2024 8:46 PM MEDICAL CARE EVALUATION SPECIALIST XR CHEST 2 VIEWS STAT 04/05/2024 8:27 PM MEDICAL CARE EVALUATION SPECIALIST CBC WITH AUTO DIFFERENTIAL STAT 04/05/2024 7:37 PM MEDICAL CARE EVALUATION SPECIALIST LIPASE STAT 04/05/2024 7:37 PM MEDICAL CARE EVALUATION SPECIALIST TROPONIN I, HIGH SENSITIVITY (HSTRP) STAT 04/05/2024 7:37 PM MEDICAL CARE EVALUATION SPECIALIST CMP (COMPREHENSIVE METABOLIC PANEL) STAT 04/05/2024 7:37 PM MEDICAL CARE EVALUATION SPECIALIST COMPLETE BLOOD COUNT (CBC) WITH DIFF STAT 04/05/2024 7:37 PM MEDICAL CARE EVALUATION SPECIALIST URINALYSIS REFLEX IF INDICATED BY ABNORMAL RESULTS STAT 04/05/2024 7:31 PM MEDICAL CARE EVALUATION SPECIALIST CULTURE, URINE STAT 04/05/2024 7:31 PM MEDICAL CARE EVALUATION SPECIALIST RSV,SARS-COV-2,INF LUENZA A&B BY PCR STAT 04/05/2024 6:48 PM MEDICAL CARE EVALUATION SPECIALIST EKG 12 LEAD STAT 04/05/2024 6:11 PM MEDICAL CARE EVALUATION SPECIALIST EKG SCAN 04/05/2024 12:00 AM MEDICAL CARE EVALUATION SPECIALIST from Last 3 Months Results * CT ABDOMEN PELVIS W/ CONTRAST (04/05/2024 8:46 PM MEDICAL CARE EVALUATION SPECIALIST) Anatomical Region Laterality Modality Abdomen N/A Computed Tomogra phy 04/05/2024 9:29 PM MEDICAL CARE EVALUATION SPECIALIST Impressions 04/05/2024 9:31 PM MEDICAL CARE EVALUATION SPECIALIST IMPRESSION: No acute process is seen. No findings are seen to explain the patient's symptoms. Narrative 04/05/2024 9:31 PM MEDICAL CARE EVALUATION SPECIALIST EXAM DESCRIPTION: CT ABDOMEN PELVIS W/ CONTRAST [...] Jitendra Miller M.D. KH: ANAYELI Report ID: [id number] Reading Location: [id number] Procedure Note Jitendra Miller MD - 04/05/2024 [...] signed by Jitendra GUADALUPE: ANAYELI Report ID: [id number] Reading Location: [id number] IMPRESSION: No acute process is seen. No findings are seen to explain the patient's symptoms. us Rafa Ramsey SUB MASTER, SALES HOST IMG CT ORDERABLES Final Result * XR CHEST 2 VIEWS (04/05/2024 8:27 PM MEDICAL CARE EVALUATION SPECIALIST) Anatomical Region Laterality Modality Chest N/A Digital Radiogra phy 04/05/2024 8:49 PM MEDICAL CARE EVALUATION SPECIALIST Impressions 04/05/2024 8:52 PM MEDICAL CARE EVALUATION SPECIALIST IMPRESSION: No acute cardiopulmonary abnormality. Narrative 04/05/2024 8:52 PM MEDICAL CARE EVALUATION SPECIALIST EXAM DESCRIPTION: XR CHEST 2 VIEWS REASON [...] signed by Jitendra GUADALUPE: ANAYELI Report ID: [id number] Reading Location: [id number] Procedure Note Jitendra Miller MD - 04/05/2024 [...] Jitendra Miller M.D. KH: ANAYELI Report ID: [id number] Reading Location: [place] [address] IMPRESSION: No acute cardiopulmonary abnormality. Rafa Ramsey APRN, CNP IMG DIAGNOSTIC ORDERABL ES Final Result * TROPONIN I, HIGH SENSITIVITY (HSTRP) (04/05/2024 7:37 PM MEDICAL CARE EVALUATION SPECIALIST) [facility] TROPONIN I, HIGH SENSITIVITY- [place] <3 <=14 ng/L 04/05/2024 8:04 PM MEDICAL CARE EVALUATION SPECIALIST [facility] Comment: High-sensitivity troponin I results are reported in ng/L making the result appear to be 1,000 times higher than the contemporary troponin I value which is reported in ng/ml. Results from [place]. Blood Venipuncture / Unknown 04/05/2024 7:37 PM MEDICAL CARE EVALUATION SPECIALIST 04/05/2024 7:37 PM MEDICAL CARE EVALUATION SPECIALIST Rafa Ramsey APRN, CNP CHEMISTRY ORDERABLES Fi nal Result [facility] [address] [place] [address] * CBC with Auto Differential (04/05/2024 7:37 PM MEDICAL CARE EVALUATION SPECIALIST) [facility] WBC 8.09 4.00 - 12.00 10(3)/mcL 04/05/2024 7:41 PM MEDICAL CARE EVALUATION SPECIALIST [facility] RBC 4.43 3.80 - 5.30 10(6)/mcL 04/05/2024 7:41 PM [facility] HEMOGLOBIN (HGB) 12.4 12.0 - 15.8 g/dL 04/05/2024 7:41 PM [facility] HEMATOCRIT (HCT) 38.3 36.0 - 47.0 % 04/05/2024 7:41 PM [facility] MCV 86.5 82.0 - 96.0 fL 04/05/2024 7:41 PM [facility] MCH 28.0 26.0 - 34.0 pg 04/05/2024 7:41 PM [facility] MCHC 32.4 31.0 - 36.0 g/dL 04/05/2024 7:41 PM [facility] PLATELET COUNT 297 140 - 440 10(3)/mcL 04/05/2024 7:41 PM [facility] RDW 13.5 11.8 - 15.5 % 04/05/2024 7:41 PM [facility] MPV 10.4 9.7 - 12.4 fL 04/05/2024 7:41 PM [facility] NEUTROPHILS 60.0 47.0 - 73.0 % 04/05/2024 7:41 PM [facility] LYMPHOCYTES 30.0 18.0 - 42.0 % 04/05/2024 7:41 PM [facility] MONOCYTES 6.3 4.0 - 12.0 % 04/05/2024 7:41 PM [facility] EOSINOPHILS 3.5 0.0 - 5.0 % 04/05/2024 7:41 PM [facility] BASOPHILS 0.2 0.0 - 1.0 % 04/05/2024 7:41 PM [facility] ABSOLUTE NEUTROPHILS 4.85 1.60 - 7.70 10(3)/mcL 04/05/2024 7:41 PM [facility] ABSOLUTE LYMPHOCYTES 2.43 1.30 - 3.20 10(3)/mcL 04/05/2024 7:41 PM MEDICAL CARE EVALUATION SPECIALIST [facility] ABSOLUTE MONOCYTES 0.51 0.20 - 1.00 10(3)/mcL 04/05/2024 7:41 PM MEDICAL CARE EVALUATION SPECIALIST [facility] ABSOLUTE EOSINOPHIL 0.28 0.00 - 0.40 10(3)/mcL 04/05/2024 7:41 PM MEDICAL CARE EVALUATION SPECIALIST [facility] ABSOLUTE BASOPHILS 0.02 0.00 - 0.10 10(3)/[facility] 04/05/2024 7:41 PM MEDICAL CARE EVALUATION SPECIALIST [facility] NRBC PER 100 WBC 0 04/06/19 7:41 PM MEDICAL CARE EVALUATION SPECIALIST [facility] Blood Venipuncture / Unknown 04/05/2024 7:37 PM MEDICAL CARE EVALUATION SPECIALIST 04/05/2024 7:37 PM MEDICAL CARE EVALUATION SPECIALIST Rafa Ramsey APRN, SALES HOST HEMATOLOGY ORDERABLES F inal Result Performing Organization Address City/[facility]/ZIP Co de Phone Number [facility] [address] [place] [address] * Lipase [id number] (04/05/2024 7:37 PM MEDICAL CARE EVALUATION SPECIALIST) Pathologist [facility] LIPASE 26 8 - 78 U/L 04/05/2024 8:01 PM MEDICAL CARE EVALUATION SPECIALIST [facility] Blood Venipuncture / Unknown 04/05/2024 7:37 PM MEDICAL CARE EVALUATION SPECIALIST 04/05/2024 7:37 PM MEDICAL CARE EVALUATION SPECIALIST Rafa Ramsey APRN, SALES HOST CHEMISTRY ORDERABLES Fi nal Result [facility] [address] [place] [address] * (ABNORMAL) Comprehensive Metabolic Panel (Cmp) [id number] (04/05/2024 7:37 PM MEDICAL CARE EVALUATION SPECIALIST) SODIUM 140 136 - 145 mmol/L 04/05/2024 8:01 PM MEDICAL CARE EVALUATION SPECIALIST [facility] POTASSIUM 3.8 3.5 - 5.1 mmol/L 04/05/2024 8:01 PM [facility] CHLORIDE 109(H) 98 - 107 mmol/L 04/05/2024 8:01 PM [facility] CO2, VENOUS 21(L) 22 - 30 mmol/L 04/05/2024 8:01 PM [facility] ANION GAP 13.8 <18.0 mmol/L 04/05/2024 8:01 PM [facility] GLUCOSE 106(H) 70 - 99 mg/dL 04/05/2024 8:01 PM [facility] BUN 11 10 - 20 mg/dL 04/05/2024 8:01 PM [facility] CREATININE, BLOOD 0.80 0.60 - 1.00 mg/dL 04/05/2024 8:01 PM [facility] BUN/CREATININE RATIO 14 12 - 20 ratio 04/05/2024 8:01 PM [facility] TOTAL PROTEIN 7.0 6.0 - 8.0 g/dL 04/05/2024 8:01 PM [facility] ALBUMIN 3.9 3.5 - 5.0 g/dL 04/05/2024 8:01 PM [facility] A/G RATIO 1.3 1.0 - 2.2 04/05/2024 8:01 PM [facility] CALCIUM 9.1 8.7 - 10.5 mg/dL 04/05/2024 8:01 PM [facility] T BILI 0.2 0.2 - 1.2 mg/dL 04/05/2024 8:01 PM [facility] SGOT (AST) 19 <43 U/L 04/05/2024 8:01 PM [facility] SGPT (ALT) 22 <56 U/L 04/05/2024 8:01 PM [facility] ALKALINE PHOSPHATASE 133 40 - 150 U/L 04/05/2024 8:01 PM [facility] GFR, ESTIMATED >60 >=60 04/05/2024 8:01 PM MEDICAL CARE EVALUATION SPECIALIST [facility] Comment: Creatinine Clearance is the preferred criteria for selecting drug dose adjustments in renally impaired patients. The GFR is provided as additional pertinent clinical information. GFR is reported in mL/min/1.73 sq m. Calculation based on the Chronic Kidney Disease Epidemiology Collaboration (CKD- EPI) equation refit without adjustment for race. GFR, EST. >60 >=60 025 8:01 PM MEDICAL CARE EVALUATION SPECIALIST [facility] GFR, EST. NONAFRICAN >60 >=60 04/05/2024 8:01 PM MEDICAL CARE EVALUATION SPECIALIST [facility] Blood Venipuncture / Unknown 04/05/2024 7:37 PM MEDICAL CARE EVALUATION SPECIALIST 04/05/2024 7:37 PM MEDICAL CARE EVALUATION SPECIALIST us Rafa Ramsey APRN, SALES HOST CHEMISTRY ORDERABLES Fi nal Result [facility] [address] [place] [address] * (ABNORMAL) URINALYSIS REFLEX IF INDICATED BY ABNORMAL RESULTS (04/05/2024 7:31 PM MEDICAL CARE EVALUATION SPECIALIST) SPECIFIC GRAVITY 1.005 1.003 - 1.030 04/05/2024 7:58 PM MEDICAL CARE EVALUATION SPECIALIST [facility] URINE PH 7.0 5.0 - 9.0 04/05/2024 7:58 PM MEDICAL CARE EVALUATION SPECIALIST [facility] WBC ESTERASE 500 /uL(A) Negative 04/05/2024 7:58 PM MEDICAL CARE EVALUATION SPECIALIST [facility] NITRITE Negative Negative 04/05/2024 7:58 PM MEDICAL CARE EVALUATION SPECIALIST [facility] PROTEIN, RANDOM URINE 15 mg/dL(A) Negative 04/05/2024 7:58 PM MEDICAL CARE EVALUATION SPECIALIST [facility] URINE GLUCOSE, QUAL Negative Negative 04/05/2024 7:58 PM MEDICAL CARE EVALUATION SPECIALIST [facility] URINE KETONES Negative Negative 04/05/2024 7:58 PM MEDICAL CARE EVALUATION SPECIALIST [facility] UROBILINOGEN Normal Normal mg/dL 04/05/2024 7:58 PM MEDICAL CARE EVALUATION SPECIALIST [facility] URINE BLOOD Negative Negative tab/ul 04/05/2024 7:58 PM MEDICAL CARE EVALUATION SPECIALIST [facility] URINALYSIS COLOR Yellow 04/06/19 7:58 PM MEDICAL CARE EVALUATION SPECIALIST [facility] URINALYSIS CLARITY Very Cloudy 04/05/2024 7:58 PM MEDICAL CARE EVALUATION SPECIALIST [facility] WBC (Urine) 51-150(A) Negative, 0-5 /hpf 04/05/2024 7:58 PM MEDICAL CARE EVALUATION SPECIALIST [facility] URINE RBC'S Negative Negative, 0-2 /hpf 04/05/2024 7:58 PM MEDICAL CARE EVALUATION SPECIALIST [facility] EPITHELIAL CELLS Moderate amount /lpf 04/05/2024 7:58 PM MEDICAL CARE EVALUATION SPECIALIST [facility] BACTERIA, URINE Few(A) Negative /hpf 04/05/2024 7:58 PM MEDICAL CARE EVALUATION SPECIALIST [facility] Urine URINE SPECIMEN OBTAINED BY CLEAN CATCH PROCEDURE / Unknown Non-Phlebotomy Collection / Unknown 04/05/2024 7:31 PM MEDICAL CARE EVALUATION SPECIALIST 04/05/2024 7:37 PM MEDICAL CARE EVALUATION SPECIALIST Rafa Ramsey APRN, CNP URINE ORDERABLES Final Result Performing Organization Address City/[facility]/ZIP Co de Phone Number [facility] [address] [place] [address] * Culture, Urine (04/05/2024 7:31 PM MEDICAL CARE EVALUATION SPECIALIST) CULTURE RESULTS Mixed Growth of One or More Distal Urethral Contaminants 04/07/2024 10:45 AM MEDICAL CARE EVALUATION SPECIALIST [facility] Urine URINE SPECIMEN OBTAINED BY CLEAN CATCH PROCEDURE / Unknown Non-Phlebotomy Collection / Unknown 04/05/2024 7:31 PM MEDICAL CARE EVALUATION SPECIALIST 04/05/2024 7:37 PM MEDICAL CARE EVALUATION SPECIALIST Rafa Ramsey APRN, CNP MICROBIOLOGY - GENERAL ORDERABLES Final Result [facility] [address] [place] [address], * RSV,SARS-COV-2,INFLUENZA A&B BY PCR (04/05/2024 6:48 PM MEDICAL CARE EVALUATION SPECIALIST) FLU A Negative Negative, Error 04/05/2024 7:38 PM MEDICAL CARE EVALUATION SPECIALIST [facility] FLU B Negative Negative 04/05/2024 7:38 PM MEDICAL CARE EVALUATION SPECIALIST [facility] RESP SYNC VIRUS Negative Negative 7:38 PM MEDICAL CARE EVALUATION SPECIALIST [facility] SARSCOV2 NOT DETECTED (Reference Range for this test is Not Detected) 04/05/2024 7:38 PM MEDICAL CARE EVALUATION SPECIALIST [facility] Comment:This test was perfor med by a Reverse Health And Wellness Manager PCR Method. Swab NASOPHARYNGEAL STRUCTURE / Unknown Non-Phlebotomy Collection / Unknown 04/05/2024 6:48 PM MEDICAL CARE EVALUATION SPECIALIST 04/05/2024 7:00 PM MEDICAL CARE EVALUATION SPECIALIST Rafa Ramsey APRN, CNP MICROBIOLOGY - GENERAL ORDERABLES Final Result [facility] [address] [place] [address] * EKG 12 LEAD (04/05/2024 6:11 PM MEDICAL CARE EVALUATION SPECIALIST) Ventricular Rate 83 BPM EXTERNAL EKG Atrial Rate 83 BPM EXTERNAL EKG P-R Interval 138 ms EXTERNAL EKG QRS Duration 86 ms EXTERNAL EKG Q-T Duration 404 ms EXTERNAL EKG QTC CALCULATION 474 ms EXTERNAL EKG P [place] 46 degrees EXTERNAL EKG R [place] -18 degrees EXTERNAL EKG T [place] 32 degrees EXTERNAL EKG 04/05/2024 6:11 PM MEDICAL CARE EVALUATION SPECIALIST Impressions EXTERNAL EKG - 04/16/2024 11:41 PM CDT Normal sinus rhythm Normal ECG No previous ECGs available Confirmed by Michael Baker ([id number]) on 04/16/2024 11:41:49 PM Narrative Procedure Note Michael Baker MD - 04/16/2024 IMPRESSION: Normal sinus rhythm Normal ECG No previous ECGs available Confirmed by Michael Baker ([id number]) on 04/16/2024 11:41:49 PM us Brayden Arellano MD IMG ECG ORDERABLES Final R esult EXTERNAL EKG * EKG SCAN (04/05/2024 12:00 AM MEDICAL CARE EVALUATION SPECIALIST) 04/05/2024 us Provider Scan IMG ECG ORDERABLES Final Result RESULTING AGENCY from Last 3 Months Insurance MEDICAID [employer] Care Teams Chief Chemist Relationship Specialty Start Date End Date Rhianna Shepard PAC [address] [place] [address] PCP - General Advanced Practice Nurse 07/02/23
--- OUTSIDE RECORDS SUMMARY | 2024-05-27 07:21 | XMS_ITS | Clinical Summary ---
Author Organization [facility] Address [address] [place] [id number] Care Team Providers Care Tripe Scraper Name Role Phone Rhianna Shepard Primary Care Provider [phone] Social History Tobacco Use Types Packs/Day Years [...] to Health Maintenance Insurance [employer] Care Teams Tripe Scraper Relationship Specialty Start Date End Date Rhianna Shepard PA [address] [place] [address] PCP - General PHYSICIAN ANGULAR DEVELOPER 11/18/19
--- OUTSIDE RECORDS SUMMARY | 2024-05-27 07:23 | XMS_ITS | CONTINUITY OF CARE DOCUMENT ---
Author Name rosalieser, rosalieser Address Unknown Organization [facility] Address [address] [place] [address] Phone [phone] Care Team Providers Care Acid Loader Name Role Phone Kathy Copeland MD Unavailable AMY FREEMAN MD Unavailable AMY FREEMAN MD Unavailable [phone] PROBLEMS Condition Status Date Provider Notes Shortness of breath (SOB) active Kathy welch MD Tobacco abuse active Kathy Copeland MD COPD active Kathy Copeland MD Bipolar disorder active Kathy Copeland MD ENCOUNTERS Date Type Provider Location Encounter Diag nosis - In-person encounter Office Visit Kathy Copeland MD [facility] [place] Office - In-person encounter Office Visit Kathy Copeland MD [place] [facility] - In-person encounter Office Visit Kathy Copeland MD [facility] [place] Office Shortness of breath (SOB)Tobacco abuseCOPDBipolar disorder [...] cess ation, patient education and counseling yes Katyh Copealnd MD smoking status Current every day smoker [...] of years as a smoker 10 a Kahty Copeland MD cigarette use yes Kathy Copeland [...] Payer name Policy type / Coverage type [employer] [employer] party ID [id number] MEDICAID (2) Medicaid [id number] TREATMENT PLAN Date Name Performer Cardiology:On albuterol [...] Kathy Copeland MD Date Name DLCO - 57837 FRC - 05126 FVC - 54369 HISTORY OF PROCEDURES Procedure Date Procedure Name Provider Procedure Notes S tatus SNOMED-CT: 068356375 [id number] Current Medications Documented Kathy Copeland MD completed SNOMED-CT: 461291356 Smoking Cessation Counseling Kathy Copeland MD completed SNOMED-CT: 00659021 Physical Exam, Performed: Pulse Exam of Foot Kathy Copeland MD completed SNOMED-CT: 400486409 799908 Current Medications Documented Kathy Copeland MD completed SNOMED-CT: 513092315 Smoking Cessation Counseling Kathy Copeland MD completed SNOMED-CT: 67328402 Physical Exam, Performed: Pulse Exam of Foot Kathy Copeland MD completed SNOMED-CT: 808966500 443890 Current Medications Documented Kathy Copeland MD completed SNOMED-CT: 951003109 Smoking Cessation Counseling Kathy Copeland MD completed SNOMED-CT: 00814951 Physical Exam, Performed: Pulse Exam of Foot Kathy Copeland MD completed
[2024-06-02 13:46] LABS: Basophils Absolute Auto 0.03 K/mm3 (0.00-0.10); Basophils Percent Auto 0.4 % (0.0-1.0); Eosinophils Absolute Auto 0.22 K/mm3 (0.02-0.50); Eosinophils Percent Auto 2.8 % (1.0-6.0); Hematocrit 35.1 % (35.0-49.0); Hemoglobin 10.9 g/dL (12.0-15.0); Immature Granulocyte Absolute 0.02 K/mm3 (0.00-0.00); Immature Granulocyte Percent A 0.3 % (0.0-0.0); Lymphocytes Percent Auto 26.4 % (18.0-42.0); Mean Corpuscular HGB Conc 31.1 g/dL (32-36); Mean Corpuscular Hemoglobin 28.2 pg (27.0-31.0); Mean Corpuscular Volume 90.7 fL (78.0-102.0); Mean Platelet Volume 10.1 fl (9.2-11.8); Monocytes Absolute Auto 0.61 K/mm3 (0.10-0.90); Monocytes Percent Auto 7.7 % (2.0-11.0); Neutrophils Absolute Auto 4.96 K/mm3 (1.70-7.20); Neutrophils Percent Auto 62.4 % (50.0-70.0); Platelet Count Result 247 K/mm3 (150-420); Red Blood Count 3.87 M/mm3 (4.20-5.40); Red Cell Distribution Width 13.6 % (11.6-14.4); White Blood Count 7.9 K/mm3 (4.8-10.8)
[2024-06-02 13:49] LABS: Lactic Acid Reflex 1.5 mmol/L (0.4-2.0)
[2024-06-02 13:50] LABS: Anion Gap 9 mmol/L (4-12); Blood Urea Nitrogen 5 mg/dL (7-18); Calcium 8.7 mg/dL (8.5-10.1); Carbon Dioxide 25 mmol/L (21-32); Chloride 106 mmol/L (98-108); Estimated Glomerular Filt Rate > 60; Glucose 98 mg/dL (70-99); Magnesium 1.4 mg/dL (1.8-2.4); Osmolality Calculated 287 mOsm/kg (285-295); Potassium 3.3 mmol/L (3.5-5.1); Sodium 140 mmol/L (136-145)
[2024-06-02 13:51] LABS: Alanine Aminotransferase 25 U/L (14-59); Albumin Level 2.7 g/dL (3.4-5.0); Alkaline Phosphatase 114 U/L (46-116); Aspartate Amino Transferase 24 U/L (15-37); Bilirubin,Total 0.3 mg/dL (0.00-1.00); Lipase 20 U/L (16-77); Total Protein 6.5 g/dL (6.4-8.2)
== END 2024-05-27 02:28 | disposition home or self-care (01) ==
LOC: CHSED 05-27 07:20
PROVIDERS: Emergency Provider Family Medicine; PCP Physician Assistant
DX: A08.4 Viral intestinal infection, unspecified (principal); K42.9 Umbilical hernia without obstruction or gangrene; I10 Essential (primary) hypertension
CPT/HCPCS: 36415; 74177; 80053; 83605; 83690; 83735; 85025; 93005; 96365; 96367; 96375; 99284; J0744; J1836; J1885; J2405; J7030; Q9967

== ENCOUNTER 2024-07-06 19:32 | Emergency (ER) | payer OTHER, SELFPAY ==
--- NOTE | ~2024-07-06 | XR_ITS ---
EXAM: XR hip RT 2V w AP pelvis DATE: 07/06/2024 20:02 HISTORY: FALL 2 DAYS AGO. POSTERIOR AND LATERAL RIGHT HIP PAIN. . COMPARISON: 06/15/2023. FINDINGS: Lumbar degenerative disc disease. No fracture or dislocation. Mild degenerative changes in the bilateral hips and pubic symphysis. Mild scattered pelvic enthesopathy. Pelvic phleboliths. IMPRESSION: No acute osseous finding in the pelvis or right hip. Reviewed, dictated and finalized at location K.
--- OUTSIDE RECORDS SUMMARY | 2024-07-06 19:35 | XMS_ITS | CONTINUITY OF CARE DOCUMENT ---
Author Name rosalieser, rosalieser Address Unknown Organization [facility] Address [address] [place] [address] Phone [phone] Care Team Providers Care Leather Novelty Parts Cutter Name Role Phone Kathy Copeland MD Unavailable AMY FREEMAN MD Unavailable AMY FREEMAN MD Unavailable [phone] PROBLEMS Condition Status Date Provider Notes Shortness of breath (SOB) active Kathy welch MD Tobacco abuse active Kathy Copeland MD COPD active Kathy Copeland MD Bipolar disorder active Kathy Copeland MD ENCOUNTERS Date Type Provider Location Encounter Diag nosis - In-person encounter Office Visit Kathy Copeland MD [facility] - In-person encounter Office Visit Kathy Copeland MD [place] Office - In-person encounter Office Visit Kathy Copeland MD [facility] Shortness of breath (SOB)Tobacco abuseCOPDBipolar disorder [...] Payer name Policy type / Coverage type [place] red republic[employer] ID [id number] MEDICAID (2) Medicaid [id number] TREATMENT PLAN Date Name Performer Cardiology:On albuterol [...] Kathy Copeland MD Date Name DLCO - 39713 FRC - 61257 FVC - 79219 HISTORY OF PROCEDURES Procedure Date Procedure Name Provider Procedure Notes S tatus SNOMED-CT: 581029221 951297 Current Medications Documented Kathy Copeland MD completed SNOMED-CT: 569723714 Smoking Cessation Counseling Kathy Copeland MD completed SNOMED-CT: 08315761 Physical Exam, Performed: Pulse Exam of Foot Kathy Copeland MD completed SNOMED-CT: 089553831 382945 Current Medications Documented Kathy Copeland MD completed SNOMED-CT: 674772561 Smoking Cessation Counseling Kathy Copeland MD completed SNOMED-CT: 58982111 Physical Exam, Performed: Pulse Exam of Foot Kathy Copeland MD completed SNOMED-CT: 735077570 456823 Current Medications Documented Kathy Copeland MD completed SNOMED-CT: 047562430 Smoking Cessation Counseling Kathy Copeland MD completed SNOMED-CT: 69570221 Physical Exam, Performed: Pulse Exam of Foot Kathy Copeland MD completed
--- OUTSIDE RECORDS SUMMARY | 2024-07-06 19:35 | XMS_ITS | Clinical Summary ---
Author Organization [facility] Address [address] [facility] [place] [address] Phone Care Team Providers Care Lotus Notes Administrator Name Role Phone Rhianna Shepard EVA Primary Care Provider + Allergies No known active allergies Medications albuterol (PROVENTIL, VENTOLIN) (5 MG/ML) 0.5% Nebulizer Soln 2.5 mg by Nebulization route. Active ALPRAZolam (XANAX) 1 MG Tablet Take 1 mg by mouth 2 times daily. Active cyclobenzaprin e (FLEXERIL) 10 MG Tablet Take 10 mg [...] Wheezing. 8.5 g 5 7 Active Mometasone Furo-Formotero l Fum (DULERA) 100-5 MCG/ACT Aerosol take 2 Puffs by inhalation every 12 hours. 1 Inhaler 3 8 Active terbinafine (LamISIL) 250 MG Tablet Take 1 Tablet by mouth daily for 14 days. 14 Tablet 5 07/01/19 25 Active Problems Problem Noted Date Diagnosed Date Multiple lung nodules 11/01/2016 Panlobular emphysema 11/01/2016 Tobacco use disorder 11/01/2016 Gastroesophageal reflux disease without esophagi tis 11/01/2016 Essential (primary) hypertension 11/01/2016 JACOB (obstructive sleep apnea) 11/01/2016 Encounters Date Type Department Care Team Description 06/16/2024 6:09 PM CDT - 06/16/2024 7:11 PM CDT Emergency [facility] Emergency [address] [place] [address] Carol Ann Torre APRN, TYPER Candidiasis, cutaneous Discharge Disposition: Discharged to home or Selfcare 06/16/2024 Travel 04/07/2024 Telephone [facility] [address] [place] [id number] Suha Herrera Patient Outreach 04/05/2024 6:12 PM TRAILER STEERER - 04/05/2024 10:05 PM TRAILER STEERER Emergency [facility] Emergency [address] [place] [address] Rafa Ramsey BIOPROCESS ENGINEER, TYPER UTI (urinary tract infection) Discharge Disposition: Discharged [...] Sign Reading Time Taken Comments Blood Pressure 127/78 06/16/2024 7:05 PM CDT Pulse 80 06/16/2024 7:05 PM CDT Temperature 36.9 C (98.4 F) 06/16/2024 7:05 PM CDT Respiratory Rate 16 06/16/2024 7:05 PM CDT Oxygen Saturation 98% 06/16/2024 7:05 PM CDT Inhaled Oxygen Concentration - - Weight 121.1 kg (267 lb) 06/16/2024 5:52 PM CDT Height 167.6 cm (5' 6) 06/16/2024 5:52 PM CDT Body Mass Index 43.09 06/16/2024 5:52 PM CDT Plan of Treatment Health Maintenance [...] 01/09/20 24, 02/09/2021, 06/29/2020, Additional history exists Human Papillomavirus (HPV) Immunization Aged Out No longer eligible based on patient's age to complete this topic Meningococcal Immunization (ACWY) Aged Out No longer eligible based on patient's age to complete this topic Rotavirus Immunization Aged Out No lo nger eligible based on patient's age to complete this topic Procedures Procedure Name Priority Date/Time Associated Diagnosis Comments CT ABDOMEN PELVIS W/ CONTRAST Stat with Interpretation 04/05/2024 8:46 PM TRAILER STEERER XR CHEST 2 VIEWS STAT 04/05/2024 8:27 PM TRAILER STEERER CBC WITH AUTO DIFFERENTIAL STAT 04/05/2024 7:37 PM TRAILER STEERER LIPASE STAT 04/05/2024 7:37 PM TRAILER STEERER TROPONIN I, HIGH SENSITIVITY (HSTRP) STAT 04/05/2024 7:37 PM TRAILER STEERER CMP (COMPREHENSIVE METABOLIC PANEL) STAT 04/05/2024 7:37 PM TRAILER STEERER COMPLETE BLOOD COUNT (CBC) WITH DIFF STAT 04/05/2024 7:37 PM TRAILER STEERER URINALYSIS REFLEX IF INDICATED BY ABNORMAL RESULTS STAT 04/05/2024 7:31 PM TRAILER STEERER CULTURE, URINE STAT 04/05/2024 7:31 PM TRAILER STEERER RSV,SARS-COV-2,INF LUENZA A&B BY PCR STAT 04/05/2024 6:48 PM TRAILER STEERER EKG 12 LEAD STAT 04/05/2024 6:11 PM TRAILER STEERER EKG SCAN 04/05/2024 12:00 AM TRAILER STEERER from Last 3 Months Results * CT ABDOMEN PELVIS W/ CONTRAST (04/05/2024 8:46 PM TRAILER STEERER) Anatomical Region Laterality Modality Abdomen N/A Computed Tomogra phy 04/05/2024 9:29 PM TRAILER STEERER Impressions 04/05/2024 9:31 PM TRAILER STEERER IMPRESSION: No acute process is seen. No findings are seen to explain the patient's symptoms. Narrative 04/05/2024 9:31 PM TRAILER STEERER EXAM DESCRIPTION: CT ABDOMEN PELVIS W/ CONTRAST REASON FOR STUDY: Left sided abdominal pain x 1 week UTI x 2 weeks- Hx HTN, diabetic, ex smoker, cholecystectomy, appendectomy- creat 0.80- EGFR >60- ISOVUE 370 100mL via left wrist 22g @ 2042 TECHNIQUE: CT scan of the abdomen and [...] Jitendra Miller M.D. KH: ANAYELI Report ID: [id number] Reading Location: [id number] Procedure Note Jitendra Miller MD - 04/05/2024 EXAM DESCRIPTION: CT ABDOMEN PELVIS W/ CONTRAST REASON FOR STUDY: Left sided abdominal pain x 1 week UTI x 2 weeks- Hx HTN, diabetic, ex smoker, cholecystectomy, appendectomy- creat 0.80- EGFR >60- ISOVUE 370 100mL via left wrist 22g @ 2042 TECHNIQUE: CT scan of the abdomen and [...] Jitendra Miller M.D. KH: ANAYELI Report ID: [id number] Reading Location: [place] [address] IMPRESSION: No acute process is seen. No findings are seen to explain the patient's symptoms. Rafa Ramsey BIOPROCESS ENGINEER, TYPER IMG CT ORDERABLES Final Result * XR CHEST 2 VIEWS (04/05/2024 8:27 PM TRAILER STEERER) Anatomical Region Laterality Modality Chest N/A Digital Radiogra phy 04/05/2024 8:49 PM TRAILER STEERER Impressions 04/05/2024 8:52 PM TRAILER STEERER IMPRESSION: No acute cardiopulmonary abnormality. Narrative 04/05/2024 8:52 PM TRAILER STEERER EXAM DESCRIPTION: XR CHEST 2 VIEWS REASON [...] signed by Jitendra GUADALUPE: ANAYELI Report ID: [id number] Reading Location: [place] [address] Procedure Note Jitendra Miller MD - 04/05/2024 [...] signed by Jitendra GUADALUPE: ANAYELI Report ID: [id number] Reading Location: [place] [address] IMPRESSION: No acute cardiopulmonary abnormality. Rafa Ramsey APRN, TYPER IMG DIAGNOSTIC ORDERABL ES Final Result * TROPONIN I, HIGH SENSITIVITY (HSTRP) (04/05/2024 7:37 PM TRAILER STEERER) TROPONIN I, HIGH SENSITIVITY- [place] <3 <=14 ng/L 04/05/2024 8:04 PM TRAILER STEERER [facility] Comment: High-sensitivity troponin I results are reported in ng/L making the result appear to be 1,000 times higher than the contemporary troponin I value which is reported in ng/ml. Results from [place]. Blood Venipuncture / Unknown 04/05/2024 7:37 PM TRAILER STEERER 04/05/2024 7:37 PM TRAILER STEERER us Rafa Ramsey APRNBEE CHEMISTRY ORDERABLES Fi nal Result [facility] [address] [place] [address] * CBC with Auto Differential (04/05/2024 7:37 PM TRAILER STEERER) WBC 8.09 4.00 - 12.00 10(3)/mcL 04/05/2024 7:41 PM TRAILER STEERER [facility] RBC 4.43 3.80 - 5.30 10(6)/mcL 04/05/2024 7:41 PM [facility] HEMOGLOBIN (HGB) 12.4 12.0 - 15.8 g/dL 04/05/2024 7:41 PM TRAILER STEERER [facility] HEMATOCRIT (HCT) 38.3 36.0 - 47.0 % 04/05/2024 7:41 PM TRAILER STEERER [facility] MCV 86.5 82.0 - 96.0 fL 04/05/2024 7:41 PM TRAILER STEERER [facility] MCH 28.0 26.0 - 34.0 pg 04/05/2024 7:41 PM [facility] MCHC 32.4 31.0 - 36.0 g/dL 04/05/2024 7:41 PM TRAILER STEERER [facility] PLATELET COUNT 297 140 - 440 10(3)/mcL 04/05/2024 7:41 PM TRAILER STEERER [facility] RDW 13.5 11.8 - 15.5 % 04/05/2024 7:41 PM [facility] MPV 10.4 9.7 - 12.4 fL 04/05/2024 7:41 PM [facility] NEUTROPHILS 60.0 47.0 - 73.0 % 04/05/2024 7:41 PM [facility] LYMPHOCYTES 30.0 18.0 - 42.0 % 04/05/2024 7:41 PM TRAILER STEERER [facility] MONOCYTES 6.3 4.0 - 12.0 % 04/05/2024 7:41 PM TRAILER STEERER [facility] EOSINOPHILS 3.5 0.0 - 5.0 % 04/05/2024 7:41 PM TRAILER STEERER [facility] BASOPHILS 0.2 0.0 - 1.0 % 04/05/2024 7:41 PM TRAILER STEERER [facility] ABSOLUTE NEUTROPHILS 4.85 1.60 - 7.70 10(3)/mcL 04/05/2024 7:41 PM [facility] ABSOLUTE LYMPHOCYTES 2.43 1.30 - 3.20 10(3)/Health system 04/05/2024 7:41 PM TRAILER STEERER [facility] ABSOLUTE MONOCYTES 0.51 0.20 - 1.00 10(3)/Health system 04/05/2024 7:41 PM [facility] ABSOLUTE EOSINOPHIL 0.28 0.00 - 0.40 10(3)/Health system 04/05/2024 7:41 PM [facility] ABSOLUTE BASOPHILS 0.02 0.00 - 0.10 10(3)/Health system 04/05/2024 7:41 PM [facility] NRBC PER 100 WBC 0 04/06/19 7:41 PM [facility] Blood Venipuncture / Unknown 04/05/2024 7:37 PM TRAILER STEERER 04/05/2024 7:37 PM TRAILER STEERER us Rafa Ramsey BIOPROCESS ENGINEER, TYPER HEMATOLOGY ORDERABLES F inal Result [facility] [address] [place] [address] * Lipase [id number] (04/05/2024 7:37 PM TRAILER STEERER) LIPASE 26 8 - 78 U/L 04/05/2024 8:01 PM TRAILER STEERER [facility] Blood Venipuncture / Unknown 04/05/2024 7:37 PM TRAILER STEERER 04/05/2024 7:37 PM TRAILER STEERER us Rafa Ramsey APRNBEE CHEMISTRY ORDERABLES Fi nal Result [facility] [address] [place] [address] * (ABNORMAL) Comprehensive Metabolic Panel (Cmp) [id number] (04/05/2024 7:37 PM TRAILER STEERER) Pathologist [facility] SODIUM 140 136 - 145 mmol/L 04/05/2024 8:01 PM [facility] POTASSIUM 3.8 3.5 - 5.1 mmol/L 04/05/2024 8:01 PM [facility] CHLORIDE 109(H) 98 - 107 mmol/L 04/05/2024 8:01 PM [facility] CO2, VENOUS 21(L) 22 - 30 mmol/L 04/05/2024 8:01 PM [facility] ANION GAP 13.8 <18.0 mmol/L 04/05/2024 8:01 PM [facility] GLUCOSE 106(H) 70 - 99 mg/dL 04/05/2024 8:01 PM [facility] BUN 11 10 - 20 mg/dL 04/05/2024 8:01 PM [facility] CREATININE, BLOOD 0.80 0.60 - 1.00 mg/dL 04/05/2024 8:01 PM [facility] BUN/CREATININE RATIO 14 12 - 20 ratio 04/05/2024 8:01 PM [facility] TOTAL PROTEIN 7.0 6.0 - 8.0 g/dL 04/05/2024 8:01 PM [facility] ALBUMIN 3.9 3.5 - 5.0 g/dL 04/05/2024 8:01 PM [facility] A/G RATIO 1.3 1.0 - 2.2 04/05/2024 8:01 PM TRAILER STEERER [facility] CALCIUM 9.1 8.7 - 10.5 mg/dL 04/05/2024 8:01 PM [facility] T BILI 0.2 0.2 - 1.2 mg/dL 04/05/2024 8:01 PM [facility] SGOT (AST) 19 <43 U/L 04/05/2024 8:01 PM TRAILER STEERER [facility] SGPT (ALT) 22 <56 U/L 04/05/2024 8:01 PM [facility] ALKALINE PHOSPHATASE 133 40 - 150 U/L 04/05/2024 8:01 PM [facility] GFR, ESTIMATED >60 >=60 04/05/2024 8:01 PM [facility] Comment: Creatinine Clearance is the preferred criteria for selecting drug dose adjustments in renally impaired patients. The GFR is provided as additional pertinent clinical information. GFR is reported in mL/min/1.73 sq m. Calculation based on the Chronic Kidney Disease Epidemiology Collaboration (CKD- EPI) equation refit without adjustment for race. GFR, EST. >60 >=60 025 8:01 PM [facility] GFR, EST. NONAFRICAN >60 >=60 04/05/2024 8:01 PM [facility] Blood Venipuncture / Unknown 04/05/2024 7:37 PM TRAILER STEERER 04/05/2024 7:37 PM TRAILER STEERER us Rafa Ramsey BIOPROCESS ENGINEER, TYPER CHEMISTRY ORDERABLES Fi nal Result [facility] [address] [place] [address] * (ABNORMAL) URINALYSIS REFLEX IF INDICATED BY ABNORMAL RESULTS (04/05/2024 7:31 PM TRAILER STEERER) SPECIFIC GRAVITY 1.005 1.003 - 1.030 04/05/2024 7:58 PM [facility] URINE PH 7.0 5.0 - 9.0 04/05/2024 7:58 PM TRAILER STEERER [facility] WBC ESTERASE 500 /uL(A) Negative 04/05/2024 7:58 PM TRAILER STEERER [facility] NITRITE Negative Negative 04/05/2024 7:58 PM TRAILER STEERER [facility] PROTEIN, RANDOM URINE 15 mg/dL(A) Negative 04/05/2024 7:58 PM TRAILER STEERER [facility] URINE GLUCOSE, QUAL Negative Negative 04/05/2024 7:58 PM TRAILER STEERER [facility] URINE KETONES Negative Negative 04/05/2024 7:58 PM TRAILER STEERER [facility] UROBILINOGEN Normal Normal mg/dL 04/05/2024 7:58 PM TRAILER STEERER [facility] URINE BLOOD Negative Negative tab/ul 04/05/2024 7:58 PM TRAILER STEERER [facility] URINALYSIS COLOR Yellow 04/06/19 7:58 PM TRAILER STEERER [facility] URINALYSIS CLARITY Very Cloudy 04/05/2024 7:58 PM TRAILER STEERER [facility] WBC (Urine) 51-150(A) Negative, 0-5 /hpf 04/05/2024 7:58 PM TRAILER STEERER [facility] URINE RBC'S Negative Negative, 0-2 /hpf 04/05/2024 7:58 PM TRAILER STEERER [facility] EPITHELIAL CELLS Moderate amount /lpf 04/05/2024 7:58 PM TRAILER STEERER [facility] BACTERIA, URINE Few(A) Negative /hpf 04/05/2024 7:58 PM TRAILER STEERER [facility] Urine URINE SPECIMEN OBTAINED BY CLEAN CATCH PROCEDURE / Unknown Non-Phlebotomy Collection / Unknown 04/05/2024 7:31 PM TRAILER STEERER 04/05/2024 7:37 PM TRAILER STEERER us Rfaa Ramsey BIOPROCESS ENGINEER, TYPER URINE ORDERABLES Final Result [facility] [address] [place] [address] * Culture, Urine (04/05/2024 7:31 PM TRAILER STEERER) CULTURE RESULTS Mixed Growth of One or More Distal Urethral Contaminants 04/07/2024 10:45 AM TRAILER STEERER [facility] Urine URINE SPECIMEN OBTAINED BY CLEAN CATCH PROCEDURE / Unknown Non-Phlebotomy Collection / Unknown 04/05/2024 7:31 PM TRAILER STEERER 04/05/2024 7:37 PM TRAILER STEERER Rafa Ramsey APRN, TYPER MICROBIOLOGY - GENERAL ORDERABLES Final Result [facility] [address] [place] [address], * RSV,SARS-COV-2,INFLUENZA A&B BY PCR (04/05/2024 6:48 PM TRAILER STEERER) FLU A Negative Negative, Error 04/05/2024 7:38 PM TRAILER STEERER [facility] FLU B Negative Negative 04/05/2024 7:38 PM TRAILER STEERER [facility] RESP SYNC VIRUS Negative Negative 7:38 PM TRAILER STEERER [facility] SARSCOV2 NOT DETECTED (Reference Range for this test is Not Detected) 04/05/2024 7:38 PM TRAILER STEERER [facility] Comment:This test was perfor med by a Reverse Obstetrics Tech PCR Method. Swab NASOPHARYNGEAL STRUCTURE / Unknown Non-Phlebotomy Collection / Unknown 04/05/2024 6:48 PM TRAILER STEERER 04/05/2024 7:00 PM TRAILER STEERER Rafa Ramsey APRN, TYPER MICROBIOLOGY - GENERAL ORDERABLES Final Result [facility] [address] [facility] [place] [address] * EKG 12 LEAD (04/05/2024 6:11 PM TRAILER STEERER) Ventricular Rate 83 BPM EXTERNAL EKG Atrial Rate 83 BPM EXTERNAL EKG P-R Interval 138 ms EXTERNAL EKG QRS Duration 86 ms EXTERNAL EKG Q-T Duration 404 ms EXTERNAL EKG QTC CALCULATION 474 ms EXTERNAL EKG P [place] 46 degrees EXTERNAL EKG R [place] -18 degrees EXTERNAL EKG T [place] 32 degrees EXTERNAL EKG 04/05/2024 6:11 PM TRAILER STEERER Impressions EXTERNAL EKG - 04/16/2024 11:41 PM CDT Normal sinus rhythm Normal ECG No previous ECGs available Confirmed by Michael Baker ([id number]) on 04/16/2024 11:41:49 PM Narrative Procedure Note Michael Baker MD - 04/16/2024 IMPRESSION: Normal sinus rhythm Normal ECG No previous ECGs available Confirmed by Michael Baker ([id number]) on 04/16/2024 11:41:49 PM Brayden Arellano MD IMG ECG ORDERABLES Final R esult EXTERNAL EKG * EKG SCAN (04/05/2024 12:00 AM TRAILER STEERER) 04/05/2024 us Provider Scan IMG ECG ORDERABLES Final Result RESULTING AGENCY from Last 3 Months Insurance MEDICAID [facility] Care Teams Lotus Notes Administrator Relationship Specialty Start Date End Date Rhianna Shepard, PAC [address] [place] [id number] PCP - General Advanced Practice Nurse 07/02/23
[2024-07-06 19:38] VITALS: BP 128/80; PULSE 77; RESP 18; TEMP 36; O2SAT 95
--- NOTE | 2024-07-06 19:44 | ED.LOWEXIN ---
HPI - Extremity Injury (Lower) General Chief Complaint: Extremity Injury, Lower Stated Complaint: R hip pain Time Seen by Provider: 07/06/24 19:43 Source: patient Mode of arrival: ambulatory Limitations: no limitations History of Present Illness HPI Narrative: Patient is a 59-year-old female who has right hip pain after falling over cats 3 days ago. She did a partial split and pulled her right hip. She has pain from the right lower back/ buttocks all the way down below the right knee. There is some numbness and tingling. There is sharp pains. No other injuries. MD complaint: hip injury ( Right) Onset (ago): day(s) ( 3) Type of Injury: blunt ( fall onto her right hip) Place: home Severity: moderate Severity scale (1-10): 5 Relieving factors: immobilization Exacerbating factors: weight bearing, movement and palpation Context: fall Associated symptoms: numbness, tingling and able to partially bear weight Other symptoms: none Treatments prior to arrival: NSAIDS Related Data Home Medications ?Medication ?Instructions ?Recorded ?Confirmed ?Last Taken ?Type omeprazole magnesium 20 mg 20 mg PO DAILY 04/13/19 12/31/23 11/13/23 History tablet,delayed release (Prilosec OTC) atorvastatin 40 mg tablet 60 mg PO DAILY 06/01/21 12/31/23 11/13/23 History fluoxetine 40 mg capsule (Prozac) 20 mg PO BID 06/01/21 12/31/23 11/13/23 History multivitamin with minerals 1 tablet PO DAILY 12/01/21 12/31/23 11/13/23 History lisinopril 40 mg tablet 40 mg PO DAILY 10/31/22 12/31/23 11/13/23 History olanzapine 10 mg tablet 10 mg PO HS 11/17/22 12/31/23 11/13/23 History metformin 500 mg tablet,extended 500 mg PO BID 09/28/23 12/31/23 11/13/23 History release 24 hr topiramate 50 mg tablet 50 mg PO DAILY 09/28/23 12/31/23 11/13/23 History Allergies Allergy/AdvReac Type Severity Reaction Status Date / Time No Known Allergies Allergy Unknown Verified 05/24/24 21:11 Review of Systems Review of Systems: All systems reviewed & are unremarkable except as noted in HPI and below Constitutional: Constitutional: Reports no additional constitutional complaints Eyes: Eyes: Reports no additional eye complaints ENT: Reports system reviewed and no additional complaints, except as documented Cardiovascular: Cardiovascular: Reports no additional cardiovascular complaints Respiratory: Respiratory: Reports no additional respiratory complaints Gastrointestinal: Gastrointestinal: Reports no additional gastrointestinal complaints Genitourinary: Genitourinary: Reports no additional female genitourinary complaints Musculoskeletal: Musculoskeletal: Reports no additional musculoskeletal complaints Integumentary/Breasts: Skin/Breast: Reports system reviewed and no additional complaints, except as docu Neurologic: Reports system reviewed and no additional complaints, except as documented Psychiatric: Psychiatric: Reports no additional psychiatric complaints Endocrine: Endocrine: Reports no additional endocrine complaints Hematologic/Lymphatic: Hematologic/Lymphatic: Reports no additional hematologic/lymphatic complaints Allergic/Immunologic: Allergic/Immunologic: Reports no additional allergic/immunologic complaints PMFSH Past Medical History Medical History Insect bite Hx MRSA infection Congestive heart failure Hypertension COPD (chronic obstructive pulmonary disease) Asthma Anxiety Depression Surgical History Surgical History History of incision and drainage Several areas to left forearm History of cholecystectomy History of hysterectomy History of tubal ligation Family History Family History Father Heart disease Mother , Mother at age 60. Diabetes mellitus Sibling Rheumatoid arthritis Has RA in her hands, sees leak gang supervisor. Social History Social History Social History: The patient is but lives with her boyfriend now and her daughter and granddaughter. The patient has 2 children. She denies any alcohol or any other illicit drugs. The patient works in the [employer]. And she is a former smoker. She does not have a durable power creative designer for healthcare. Code status full code Smoking packs per day: 1.5 Smoking cigarettes per day: 30.0 Years smoked: 30 Smoking pack-years: 45.00 Smoking status: Former smoker Tobacco type: cigarettes Second hand tobacco smoke exposure: Yes Alcohol intake: never Substance use: never Substance use type: does not use Lack of Transportation: No Lack of Food: Sometimes True Current Housing: I Have Housing Concerned About Future Housing: No Difficulty Paying Gas/Electric Bills: No Difficulty Paying for Meds: No Currently Unemployed: No Education: High School Diploma/GED Difficulty w/ Childcare or Family Care: No Spiritual care concerns: No Exam Const: General: healthy appearing Nutritional Appearance: well nourished Orientation/consciousness: patient oriented x3 HENMT: Head: normal to inspection Ears: external ears normal Face/Nose/Sinus: Normal external nose present Eyes: Conjunctivae: conjunctivae normal Pupils: Equal, round and reactive pupils present EOM: EOMs intact bilaterally Neck: Neck: normal visual inspection Chest: Chest palpation & inspection: normal inspection of the chest Resp: Effort & Inspection: normal respiratory effort and not labored Auscultation: clear to auscultation bilaterally and no crackles Cardio: Rate: regular rate Rhythm: regular rhythm Heart sounds: no murmurs GI: Inspection: non-distended GI Palp: Yes Soft to palpation and No Tenderness to palpation present (GI) Auscultation: normal bowel sounds : General: Yes bladder normal to palpation Back/Spine/Pelvis: Back: no CVA tenderness Other: tender right buttocks with radiation down the right lower extremity causing numbness and tingling and pain below the right knee Skin: General skin exam: normal color Rashes: no rashes Wounds: no wounds Neuro: General: patient oriented x3 Cranial nerves: Yes Nystagmus not present Speech: normal speech Gait exam (Neuro): gait abnormal Other: difficulty walking secondary to pain Extrem: General: normal to inspection Psych: Mental Status: mental status grossly normal Affect: normal affect Attitude: cooperative Course Vital Signs Vital signs: Vital Signs Temperature 36.0 C L 07/06/24 19:38 Pulse Rate 77 07/06/24 19:38 Respiratory Rate 18 07/06/24 19:38 Blood Pressure 128/80 07/06/24 19:38 Pulse Oximetry 95 07/06/24 19:38 Oxygen Delivery Room Air 07/06/24 19:38 Temperature 36.0 C L 07/06/24 19:38 Pulse Rate 77 07/06/24 19:38 Respiratory Rate 18 07/06/24 19:38 Blood Pressure 128/80 07/06/24 19:38 Pulse Oximetry 95 07/06/24 19:38 Oxygen Delivery Room Air 07/06/24 19:38 MDM - Extremity Injury (Lower) MDM Narrative Medical decision making narrative: patient is a 59-year-old female with right buttocks right lower back /right hip pain after tripping over her tests. Will start with an x-ray. Further we will use triple therapy to quiet down a sciatica type pain. Imaging Data Attestation: I personally reviewed and interpreted this imaging study as follows: Radiologist's impression: x-ray right hip and pelvis are negative for acute process Discharge Plan Discharge Clinical Impression: Sciatica Qualifiers: Laterality: right Qualified Code(s): M54.31 - Sciatica, right side Piriformis syndrome Qualifiers: Laterality: right Qualified Code(s): G57.01 - Lesion of sciatic nerve, right lower limb Patient Disposition: Home Condition: Stable Instructions: Sciatica (ED), Piriformis Syndrome (ED) Patient Language: Kyrgyz Prescriptions: New cyclobenzaprine 10 mg tablet 10 mg PO TID PRN (Reason: muscle spasm) Qty: 20 0RF prednisone 20 mg tablet 40 mg PO DAILY 3 Days Qty: 6 0RF hydrocodone-acetaminophen 5-325 mg tablet 1 tablet PO Q8H PRN (Reason: pain) Qty: 20 0RF Rx Instructions: 1-2 tabs per dose No Action omeprazole magnesium [Prilosec OTC] 20 mg Tablet,Delayed Release (Dr/Ec) 20 mg PO DAILY lisinopril 40 mg tablet 40 mg PO DAILY olanzapine 10 mg tablet 10 mg PO HS tramadol 50 mg tablet 50 mg PO Q6H PRN (Reason: pain) Qty: 15 0RF nitrofurantoin monohyd/m-cryst [Macrobid] 100 mg capsule 100 mg PO Q12H 7 Days Qty: 14 0RF Rx Instructions: must administer with a meal/food magnesium oxide 400 mg magnesium tablet 400 mg PO DAILY Qty: 10 0RF fluoxetine [Prozac] 40 mg capsule 20 mg PO BID atorvastatin 40 mg tablet 60 mg PO DAILY metformin 500 mg tablet extended release 24 hr 500 mg PO BID topiramate 50 mg tablet 50 mg PO DAILY prednisone 20 mg tablet 20 mg PO DAILY 5 Days Qty: 5 0RF cyclobenzaprine 10 mg tablet 10 mg PO TID PRN (Reason: muscle spasm) Qty: 14 0RF ciprofloxacin HCl [Cipro] 250 mg tablet 250 mg PO Q12H Qty: 10 0RF ondansetron 4 mg tablet,disintegrating 4 mg PO Q4H 0 Days Qty: 10 0RF Rx Instructions: 1st dose 1-2 hr before radiation nystatin 100,000 unit/gram powder 1 applic topical TID 7 Days Qty: 15 0RF Rx Instructions: applied a vaginal area diphenoxylate-atropine [Lomotil] 2.5-0.025 mg tablet 1 tablet PO TID PRN (Reason: diarrhea) Qty: 14 0RF potassium chloride [K-Tab] 20 mEq tablet extended release 20 meq PO BID 3 Days Qty: 6 0RF nystatin 100,000 unit/gram powder 1 applic topical TID 7 Days Qty: 15 0RF Rx Instructions: applied a vaginal area diphenoxylate-atropine [Lomotil] 2.5-0.025 mg tablet 1 tablet PO TID PRN (Reason: diarrhea) Qty: 14 0RF potassium chloride [K-Tab] 20 mEq tablet extended release 20 meq PO BID 3 Days Qty: 6 0RF multivitamin with minerals Tablet 1 tablet PO DAILY alprazolam 1 mg tablet 1 mg PO DAILY PRN (Reason: Anxiety) Qty: 1 0RF albuterol sulfate 90 mcg/actuation HFA aerosol inhaler 2 puff INHALATION Q4H PRN (Reason: Wheezing) Qty: 1 0RF Follow-up/Referrals: Devyn,ROBERT Moctezuma [Primary Care Provider] - Time of Disposition: 20:20
--- OUTSIDE RECORDS SUMMARY | 2024-07-06 19:53 | XMS_ITS | CONTINUITY OF CARE DOCUMENT ---
Author Name rosalieser, rosalieser Address Unknown Organization [facility] Address [address] [place] [address] Phone [phone] Care Team Providers Care International Logistics Coordinator Name Role Phone Kathy Copeland MD Unavailable AMY FREEMAN MD Unavailable [phone] AMY FREEMAN MD Unavailable [phone] PROBLEMS Condition Status Date Provider Notes Shortness of breath (SOB) active Kathy welch MD Tobacco abuse active Kathy Copeland MD COPD active Kathy Copeland MD Bipolar disorder active Kathy Copeland MD ENCOUNTERS Date Type Provider Location Encounter Diag nosis - In-person encounter Office Visit Kathy Copeland MD [facility] - In-person encounter Office Visit Kathy Copeland MD [place] [facility] - In-person encounter Office Visit Kathy [...] Kathy Copeland MD LISINOPRIL TABLET active 0 Kahty Copeland MD SYMBICORT 80-4.5 MCG/ACT INHALATION AEROSOL [...] atient has been counseled to quit. Kathy Copealnd MD smoking/tobacco cess ation, patient education and [...] Payer name Policy type / Coverage type [place] [employer] party [place] MEDICAID (2) Medicaid [id number] TREATMENT PLAN Date Name Performer Cardiology:On albuterol [...] Kathy Copeland MD Date Name DLCO - 62014 FRC - 11923 FVC - 13324 HISTORY OF PROCEDURES Procedure Date Procedure Name Provider Procedure Notes S tatus SNOMED-CT: 968559872 [id number] Current Medications Documented Kathy Copeland MD completed SNOMED-CT: 794606324 Smoking Cessation Counseling Kathy Copeland MD completed SNOMED-CT: 12851468 Physical Exam, Performed: Pulse Exam of Foot Kathy Copeland MD completed SNOMED-CT: 354064332 716036 Current Medications Documented Kathy Copeland MD completed SNOMED-CT: 063950667 Smoking Cessation Counseling Kathy Copeland MD completed SNOMED-CT: 39072010 Physical Exam, Performed: Pulse Exam of Foot Kathy Copeland MD completed SNOMED-CT: 425503174 248072 Current Medications Documented Kathy Copeland MD completed SNOMED-CT: 767588929 Smoking Cessation Counseling Kathy Copeland MD completed SNOMED-CT: 02630864 Physical Exam, Performed: Pulse Exam of Foot Kathy Copeland MD completed
[2024-07-06] MEDS: predniSONE 20 MG TABLET 40 MG PO (20:02)
[2024-07-06] MEDS: CYCLOBENZAPRINE HCL 10 MG TABLET PO (20:03)
[2024-07-06] MEDS: HYDROcodone/acetaminophen (*CRX) 5-325 MG TABLET 1 TAB PO (20:20)
[2024-07-06 20:35] VITALS: BP 130/78; PULSE 74; RESP 20; O2SAT 96
== END 2024-07-06 20:35 | disposition home or self-care (01) ==
PROVIDERS: Emergency Provider Emergency Medicine; PCP Physician Assistant
DX: G57.01 Lesion of sciatic nerve, right lower limb (principal); I11.0 Hypertensive heart disease with heart failure; I50.9 Heart failure, unspecified; J44.9 Chronic obstructive pulmonary disease, unspecified; Z87.891 Personal history of nicotine dependence; W01.0XXA Fall on same level from slipping, tripping and stumbling without subsequent striking against object, initial encounter
CPT/HCPCS: 73502; 99283; A9270; J7512

== ENCOUNTER 2024-07-29 16:43 | Emergency (ER) | payer OTHER, SELFPAY ==
[2024-07-29] VITALS (19 sets, daily range): BP systolic 108–140; BP diastolic 67–87; PULSE 70–83; RESP 14–23; TEMP 36.6; O2SAT 93–100
--- NOTE | ~2024-07-29 | XR_ITS ---
CHEST RADIOGRAPH, PA AND LATERAL CLINICAL HISTORY: Chest pain . COMPARISON: 12/31/2023 TECHNIQUE: PA and lateral views of the chest. FINDINGS The cardiomediastinal silhouette is unremarkable. The lungs are clear. IMPRESSION: No focal infiltrate or effusion. Reviewed, dictated and finalized at location A.
--- NOTE | 2024-07-29 16:45 | ECG_ITS ---
Test Date: 2024-07-29 16:54:40 Measurements Intervals [place] Rate: 74 P: 60 VA: 155 QRS: 55 QRSD: 111 T: 51 QT: 414 QTc: 460 Interpretive Statements SINUS RHYTHM INTRAVENTRICULAR CONDUCTION DELAY BORDERLINE T WAVE ABNORMALITY- ANTERIOR LEADS BASELINE ARTIFACT- II, III, AVR, AVL, AVF BORDERLINE ECG Compared to ECG 05/26/2024 22:47:55 NO SIGNIFICANT CHANGE Electronically Signed On 07-29-2024 16:56:57 CDT by Jeffery Flores D.O.
[2024-07-29] MEDS: NITROGLYCERIN SL 0.4 MG TABLET SUBLINGUAL ×2 (17:16→19:53)
[2024-07-29 17:30] LABS: Add Urine Microscopic? YES; Appearance Urine Clear (Clear); Bilirubin Urine Negative (Negative); Blood Urine Negative (Negative); Color Urine Light Yellow (Yellow); Glucose Urine UA Negative (Negative); Ketones Urine Negative (Negative); Leukocyte Esterase Ur 1+ LEU/UL (Negative); Nitrate Urine Negative (Negative); Protein Urine Negative (Negative); Specific Grav Ur <= 1.005 (1.010-1.020); Urobilinogen Urine 0.2 mg/dL (0.2-1.0)
--- NOTE | 2024-07-29 17:30 | ED.CHESTPAIN ---
HPI - Chest Pain General Chief Complaint: Chest Pain Stated Complaint: chest pain, Source: patient and EMS Mode of arrival: EMS Limitations: no limitations History of Present Illness HPI narrative: This is a 59-year-old female, with history CHF and diabetes, who presents to the emergency department complaining of chest pain. The patient states approximately 30 minutes prior to arrival, she was seated at rest when she pressure-like moderate chest pain, associated with tingling in the bilateral hands and left jaw. She denies any known aggravating or alleviating factors, shortness of breath, cold sweats or nausea/vomiting. She states the pain abated after approximately 25 minutes. She has no other complaints at this time. EMS reports vital signs were stable EN route. She was given a 325 mg dose aspirin. EKG reportedly demonstrated sinus rhythm without ischemic changes. Related Data Home Medications ?Medication ?Instructions ?Recorded ?Confirmed ?Last Taken ?Type omeprazole magnesium 20 mg 20 mg PO DAILY 04/13/19 12/31/23 11/13/23 History tablet,delayed release (Prilosec OTC) atorvastatin 40 mg tablet 60 mg PO DAILY 06/01/21 12/31/23 11/13/23 History fluoxetine 40 mg capsule (Prozac) 20 mg PO BID 06/01/21 12/31/23 11/13/23 History multivitamin with minerals 1 tablet PO DAILY 12/01/21 12/31/23 11/13/23 History lisinopril 40 mg tablet 40 mg PO DAILY 10/31/22 12/31/23 11/13/23 History olanzapine 10 mg tablet 10 mg PO HS 11/17/22 12/31/23 11/13/23 History metformin 500 mg tablet,extended 500 mg PO BID 09/28/23 12/31/23 11/13/23 History release 24 hr topiramate 50 mg tablet 50 mg PO DAILY 09/28/23 12/31/23 11/13/23 History Allergies Allergy/AdvReac Type Severity Reaction Status Date / Time No Known Allergies Allergy Unknown Verified 07/29/24 16:51 Review of Systems Review of Systems: All systems reviewed & are unremarkable except as noted in HPI and below ( HPI) PMFSH Past Medical History Medical History Insect bite Hx MRSA infection Congestive heart failure Hypertension COPD (chronic obstructive pulmonary disease) Asthma Anxiety Depression Surgical History Surgical History History of incision and drainage Several areas to left forearm History of cholecystectomy History of hysterectomy History of tubal ligation Family History Family History Father Heart disease Mother , Mother at age 60. 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 Social History Social History Social History: The patient is but lives with her boyfriend now and her daughter and granddaughter. The patient has 2 children. She denies any alcohol or any other illicit drugs. The patient works in the [employer] And she is a former smoker. She does not have a durable power real estate attorney for healthcare. Code status full code Smoking packs per day: 1.5 Smoking cigarettes per day: 30.0 Years smoked: 30 Smoking pack-years: 45.00 Smoking status: Former smoker Tobacco type: cigarettes Second hand tobacco smoke exposure: Yes Alcohol intake: never Substance use: never Substance use type: does not use Lack of Transportation: No Lack of Food: Sometimes True Current Housing: I Have Housing Concerned About Future Housing: No Difficulty Paying Gas/Electric Bills: No Difficulty Paying for Meds: No Currently Unemployed: No Education: High School Diploma/GED Difficulty w/ Childcare or Family Care: No Spiritual care concerns: No Exam Narrative: GENERAL: Well-developed, well-nourished, and in no acute distress. HEAD: Normocephalic, atraumatic. EYES: PERRLA and EOMI. NECK: Supple. No JVD CHEST: Clear to auscultation. No respiratory distress. No wheezes rales or rhonchi. No tenderness to palpation of the anterior chest wall HEART: Regular rate and rhythm. No murmur heard. Normal peripheral pulses. ABDOMEN: Soft, nontender, nondistended, normal active bowel sounds. EXTREMITIES: Normal range of motion. No edema. SKIN: Warm, dry, no rash. NEURO: Alert and oriented x3. No focal deficit. Moving all 4 limbs spontaneously PSYCH: Normal mood and affect. Course Course Emergency Course: 19:01 - Repeat Troponin negative. Chemistries demonstrate potassium of 2.8 which is being repleted. The patient had improvement of her chest pain after sublingual nitro. Heart score 5. She has a documented stress test in 2022 that was limited by the patient's dyspnea and COPD. She has not had a cardiac catheterization. Will discuss patient with [facility] for transfer. 20:15 - The patient had a repeat episode chest pain that improved with sublingual nitro. EKG not concerning for acute ischemia. 20:40 - I discussed the patient with [facility] hospitalist, Dr. Fam who accepts transfer. Vital Signs Vital signs: Vital Signs Pulse Rate 73 07/29/24 16:45 Temperature 97.9 F 07/29/24 16:49 Pulse Rate 70 07/29/24 20:04 Respiratory Rate 18 07/29/24 20:04 Blood Pressure 115/70 07/29/24 20:04 Pulse Oximetry 96 07/29/24 20:04 Oxygen Delivery Room Air 07/29/24 20:04 MDM - Chest Pain MDM Narrative Medical decision making narrative: plan: Labs, EKG, troponin, imaging, pain control, reassess Differential Diagnosis Differential diagnosis: Likely pneumothorax, costochondritis and other ( ACS, pneumonia, anxiety, metabolic abnormality, other) Lab Data 07/29/24 17:25 07/29/24 17:25 Labs: Lab Results 07/29/24 07/29/24 Range/Units 17:25 20:23 WBC 8.9 (4.8-10.8) K/mm3 RBC 4.08 L (4.20-5.40) M/mm3 Hgb 11.6 L (12.0-15.0) g/dL Hct 36.2 (35.0-49.0) % MCV 88.7 (78.0-102.0) fL MCH 28.4 (27.0-31.0) pg MCHC 32.0 (32-36) g/dL RDW 13.2 (11.6-14.4) % Plt Count 293 (150-420) K/mm3 MPV 9.8 (9.2-11.8) fl Immature Gran % (Auto) 0.2 H (0.0-0.0) % Neut % (Auto) 69.7 (50.0-70.0) % Lymph % (Auto) 22.6 (18.0-42.0) % [place] % (Auto) 4.5 (2.0-11.0) % Eos % (Auto) 2.9 (1.0-6.0) % Baso % (Auto) 0.1 (0.0-1.0) % Lymph # (Auto) 2.00 (1.10-4.50) K/mm3 [place] # (Auto) 0.40 (0.10-0.90) K/mm3 Eos # (Auto) 0.26 (0.02-0.50) K/mm3 Baso # (Auto) 0.01 (0.00-0.10) K/mm3 Abs Immat Gran (auto) 0.02 H (0.00-0.00) K/mm3 Absolute Neuts (auto) 6.17 (1.70-7.20) K/mm3 Absolute Nucleated RBC 0.00 (0.00-0.00) K/mm3 Nucleated RBC % 0.0 (0-0.0) % PT 10.3 (9.50-12.1) Seconds INR 0.9 Sodium 139 (137-145) mmol/L Potassium 2.8 L* (3.4-5.0) mmol/L Chloride 106 (98-107) mmol/L Carbon Dioxide 27 (22-30) mmol/L Anion Gap 6 (4-12) mmol/L BUN 5 L (7-17) mg/dL Creatinine 0.60 L (0.7-1.0) mg/dL Estim Creat Clear Calc 115 ml/min Estimated GFR > 60 (59 - ) Glucose 103 (65-110) mg/dL Calculated Osmolality 285 (285-295) mOsm/kg Calcium 8.3 L (8.4-10.2) mg/dL Total Bilirubin 0.4 (0.2-1.3) mg/dL AST 24 (14-36) U/L ALT 20 (6-35) U/L Alkaline Phosphatase 109 (38-126) U/L Troponin I < 0.012 Pending (0.000-0.034) ng/mL Total Protein 6.4 (6.3-8.2) g/dL Albumin 3.7 (3.5-5.1) g/dL Lipase 37 (23-300) U/L Urine Color Light yellow (Yellow) Urine Appearance Clear (Clear) Urine pH 6.0 (5.0-8.0) Ur Specific [place] <= 1.005 L (1.010-1.020) Urine Protein Negative (Negative) Urine Glucose (UA) Negative (Negative) Urine Ketones Negative (Negative) Ur Blood (Man) Negative (Negative) Urine Nitrate Negative (Negative) Urine Bilirubin Negative (Negative) Urine Urobilinogen 0.2 (0.2-1.0) mg/dL Leukocyte Esterase Rfl 1+ H (Negative) ANDREE/UL Urine RBC 0-2 (0-2) /hpf Urine WBC 0-3 (0-3) /hpf Ur Squamous Epith Cells Rare (Few) /hpf Urine Bacteria Trace (None) /hpf ECG Data EKG #1: Attestation: I personally reviewed and interpreted this ECG as follows: ECG completion date: 07/29/24 ECG completion time: 16:54 Interpretation: sinus rhythm, rate 74, normal axis, no ST segment elevations or T-wave inversions concerning for ischemia, normal intervals with QTC of 441. No significant change compared to EKG done in May 2024. EKG #2: Attestation: I personally reviewed and interpreted this ECG as follows: ECG completion date: 07/29/24 ECG completion time: 20:14 Prior ECG tracings: available for review Interpretation: Sinus rhythm, rate 70, borderline axis, no ST segment elevations or T-wave inversions concerning for ischemia, intervals with QTC of 443. No significant change compared to EKG done earlier today. Discharge Plan Discharge Clinical Impression: Acute hypokalemia Chest pain Qualifiers: Chest pain type: unspecified Qualified Code(s): R07.9 - Chest pain, unspecified Patient Disposition: Acute Care Hospital Condition: Serious Patient Language: Luxembourgish Prescriptions: No Action omeprazole magnesium [Prilosec OTC] 20 mg Tablet,Delayed Release (Dr/Ec) 20 mg PO DAILY lisinopril 40 mg tablet 40 mg PO DAILY olanzapine 10 mg tablet 10 mg PO HS tramadol 50 mg tablet 50 mg PO Q6H PRN (Reason: pain) Qty: 15 0RF magnesium oxide 400 mg magnesium tablet 400 mg PO DAILY Qty: 10 0RF cyclobenzaprine 10 mg tablet 10 mg PO TID PRN (Reason: muscle spasm) Qty: 20 0RF hydrocodone-acetaminophen 5-325 mg tablet 1 tablet PO Q8H PRN (Reason: pain) Qty: 20 0RF Rx Instructions: 1-2 tabs per dose fluoxetine [Prozac] 40 mg capsule 20 mg PO BID atorvastatin 40 mg tablet 60 mg PO DAILY metformin 500 mg tablet extended release 24 hr 500 mg PO BID topiramate 50 mg tablet 50 mg PO DAILY cyclobenzaprine 10 mg tablet 10 mg PO TID PRN (Reason: muscle spasm) Qty: 14 0RF ondansetron 4 mg tablet,disintegrating 4 mg PO Q4H 0 Days Qty: 10 0RF Rx Instructions: 1st dose 1-2 hr before radiation multivitamin with minerals Tablet 1 tablet PO DAILY alprazolam 1 mg tablet 1 mg PO DAILY PRN (Reason: Anxiety) Qty: 1 0RF albuterol sulfate 90 mcg/actuation HFA aerosol inhaler 2 puff INHALATION Q4H PRN (Reason: Wheezing) Qty: 1 0RF Follow-up/Referrals: Devyn,ROBERT Moctezuma [Primary Care Provider] - Time of Disposition: 20:40
[2024-07-29 17:40] LABS: INR 0.9; Prothrombin Time 10.3 Seconds (9.50-12.1)
[2024-07-29 17:48] LABS: Basophils Absolute Auto 0.01 K/mm3 (0.00-0.10); Basophils Percent Auto 0.1 % (0.0-1.0); Eosinophils Absolute Auto 0.26 K/mm3 (0.02-0.50); Eosinophils Percent Auto 2.9 % (1.0-6.0); Hematocrit 36.2 % (35.0-49.0); Hemoglobin 11.6 g/dL (12.0-15.0); Immature Granulocyte Absolute 0.02 K/mm3 (0.00-0.00); Immature Granulocyte Percent A 0.2 % (0.0-0.0); Lymphocytes Percent Auto 22.6 % (18.0-42.0); Mean Corpuscular Hemoglobin 28.4 pg (27.0-31.0); Mean Corpuscular Volume 88.7 fL (78.0-102.0); Mean Platelet Volume 9.8 fl (9.2-11.8); Monocytes Percent Auto 4.5 % (2.0-11.0); Neutrophils Absolute Auto 6.17 K/mm3 (1.70-7.20); Neutrophils Percent Auto 69.7 % (50.0-70.0); Platelet Count Result 293 K/mm3 (150-420); Red Blood Count 4.08 M/mm3 (4.20-5.40); Red Cell Distribution Width 13.2 % (11.6-14.4); White Blood Count 8.9 K/mm3 (4.8-10.8)
[2024-07-29 17:59] LABS: Bacteria Urine Trace /hpf; RBC Urine 0-2 /hpf (0-2); Squamous Epithelial Cell Urine Rare /hpf (Few); WBC Urine 0-3 /hpf (0-3)
[2024-07-29 18:01] LABS: Alanine Aminotransferase 20 U/L (6-35); Albumin Level 3.7 g/dL (3.5-5.1); Alkaline Phosphatase 109 U/L (38-126); Anion Gap 6 mmol/L (4-12); Aspartate Amino Transferase 24 U/L (14-36); Bilirubin,Total 0.4 mg/dL (0.2-1.3); Blood Urea Nitrogen 5 mg/dL (7-17); Calcium 8.3 mg/dL (8.4-10.2); Carbon Dioxide 27 mmol/L (22-30); Chloride 106 mmol/L (98-107); Estimated CRCL calculation 115 ml/min; Estimated Glomerular Filt Rate > 60; Glucose 103 mg/dL (65-110); Lipase 37 U/L (23-300); Osmolality Calculated 285 mOsm/kg (285-295); Sodium 139 mmol/L (137-145); Total Protein 6.4 g/dL (6.3-8.2)
[2024-07-29 18:04] LABS: Potassium 2.8 mmol/L (3.4-5.0)
[2024-07-29] MEDS: POTASSIUM CHLORIDE 20 MEQ PACKET (FOR LIQUID) 40 MEQ PO (18:33)
[2024-07-29] MEDS: KCL 20 MEQ/SW 100 ML 100 ML 50 MEQ IVPB (18:33)
[2024-07-29 18:41] LABS: Troponin I < 0.012 ng/mL (0.000-0.034)
--- NOTE | 2024-07-29 18:50 | PC.NURSE ---
ASSUMED CARE. REPORT RECEIVED FROM JAQUELINE SÁNCHEZ. RESTING ON STRETCHER. IV TO RIGHT ARM. IV FLUIDS INFUSING WITHOUT DIFFICUTLY.
[2024-07-29] MEDS: SODIUM CHLORIDE 0.9% IV 1,000 ML 999 ML IV CONT (18:51)
--- NOTE | 2024-07-29 19:03 | PC.NURSE ---
report to carol pearson.
--- NOTE | 2024-07-29 19:48 | PC.NURSE ---
PATIENT WAS UPDATED ON PLAN FOR TRANSFER TO [facility]. VERBALIZED UNDERSTANDING
--- NOTE | 2024-07-29 19:55 | PC.NURSE ---
PATIENT CALLED OUT, REPORTS THAT LEFT SIDED CHEST PRESSURE HAS RETURNED. WILL MEDICATE WITH NITRO PER ORDERS
--- NOTE | 2024-07-29 19:57 | ECG_ITS ---
Test Date: 2024-07-29 20:14:15 Measurements Intervals [place] Rate: 70 P: 18 TX: 119 QRS: 17 QRSD: 104 T: 29 QT: 422 QTc: 457 Interpretive Statements SINUS RHYTHM WITH SHORT TX INTERVAL LOW QRS VOLTAGE IN LIMB LEADS BASELINE ARTIFACT- I, III, AVR, AVL, AVF, V4-V6 BORDERLINE ECG Compared to ECG 07/29/2024 16:54:40 NO SIGNIFICANT CHANGE Electronically Signed On 07-30-2024 06:13:32 CDT by Jeffery Flores D.O.
--- NOTE | 2024-07-29 20:04 | PC.NURSE ---
PATIENT NOW RATES CHEST PAIN AT 2/10. REPORTS INCREASED DIZZINESS. ER PROVIDER AWARE. EKG IN PROGRESS.
--- NOTE | 2024-07-29 20:32 | PC.NURSE ---
PATIENT HAS FAMILY MEMBERS AT THE BEDSIDE. CALL LIGHT IN REACH. DENIES ANY NEEDS
[2024-07-29 20:48] LABS: Troponin I < 0.012 ng/mL (0.000-0.034)
--- NOTE | 2024-07-29 20:50 | PC.NURSE ---
ATTEMPTED TO CALL REPORT TO FIORELLA. HEMA SÁNCHEZ WILL CALL THIS RN BACK SHORTLY.
[2024-07-29] MEDS: NITROGLYCERIN OINTMENT 1 INCH DOSE 0.5 INCH TRANSDERM (20:52)
--- NOTE | 2024-07-31 12:39 | PC.NURSE ---
FINAL URINE CULTURE NO GROWTH
--- NOTE | 2024-08-02 14:06 | PC.NURSE ---
final urine culture reviewed. no growth, no change in plan of care
== END 2024-07-29 21:40 | disposition short-term general hospital (02) ==
PROVIDERS: Emergency Provider Preventive Medicine Aerospace Medicine; PCP Physician Assistant
DX: E87.6 Hypokalemia (principal); R07.9 Chest pain, unspecified; I11.0 Hypertensive heart disease with heart failure; I50.9 Heart failure, unspecified; Z87.891 Personal history of nicotine dependence
CPT/HCPCS: 36415; 71046; 80053; 81001; 83690; 84484; 85025; 85610; 87086; 93005; 96365; 96366; 99285; A9270; J3480; J7030

== ENCOUNTER 2024-07-29 22:24 | Observation (INO) | payer OTHER, SELFPAY ==
--- NOTE | ~2024-07-29 | NM_ITS ---
EXAMINATION: NM teodoro stress w perfusion DATE: 07/30/2024 10:53 INDICATION: Chest pain TECHNIQUE: Rest images were obtained following intravenous administration of 10.2 mCi Tc99m tetrofosm in (Myoview). The patient was infused intravenously with Lexiscan (Regadenoson). Then, 32.8 mCi Tc99m tetrofosmin (Myoview) was administered intravenously, and stress images were obtained. Data was gabby nstructed into short axis and horizontal and vertical long axis SPECT images. Gated SPECT images were also obtained. COMPARISON: None. FINDINGS: Moderate-sized moderate severity perfusion defect, partially reversible consistent with mix ed ischemia and infarct at the apex and inferoapical segment and nonreversible consistent with infarc t at the apical septal, apical inferior, mid inferoseptal and mid inferior segments. There is normal left ventricular chamber size, wall motion and ejection fraction. Left ventricular ejection fractio n measures >70%. IMPRESSION: 1. Moderate-sized moderate sized infarct involving primarily the circumflex coronary artery vascular distribution with superimposed small region of mild reversible ischemia at the apical and apical infe rior segments. 2. Left ventricular ejection fraction measuring >70%. Reviewed, dictated and finalized at location A. IMPRESSION: 1. Moderate-sized moderate sized infarct involving primarily the circumflex cor onary artery vascular distribution with superimposed small region of mild rever sible ischemia at the apical and apical inferior segments. 2. Left ventricular ejection fraction measuring >70%.
[2024-07-29 22:24] VITALS: BP 124/65; PULSE 99; RESP 20; TEMP 36.7; O2SAT 97; BMI 43.2
[2024-07-29 22:30] VITALS: BMI 43.2
--- NOTE | 2024-07-29 22:36 | ADMGEN ---
This patient, Palma Frost, was admitted to IMU Room 200-01 at 2224. Patient/family oriented to hospital policies and general routines including ID bracelet, bed and alarms, visiting hours, pain management, procedures, bathroom and other care routines, personal items, smoking policy, room service/diet, and visiting hours. Information on how to activate the Rapid Response Team has been discussed. Patient/Family are encouraged to report perceived risks to care and to ask questions if they do not understand what they are told or what they should do.
[2024-07-29] MEDS: ENOXAPARIN 120 MG/0.8 ML SYRINGE SUB-Q (23:25)
[2024-07-29] MEDS: OLANZapine 5 MG TABLET 10 MG PO (23:26)
--- NOTE | 2024-07-29 23:32 | P.HP_ITS ---
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 The patient reports that she was sitting down to watch TV after she got home from work when she began having pain in her left jaw that radiated down into her neck and into the left side of her chest as well as her left arm. It was accompanied by some nausea and some tingling of her left extremity. Symptoms started approximately 30 minutes prior to arrival to the ER. She reports that the pain at in her arm and jaw have resolved but she is still having some left-sided chest pain. Her pain was relieved after nitroglycerin administration at the outside ER. She did have a recurrence for pain and had an additional 2 doses of nitroglycerin with relief in her symptoms. She was subsequently placed on nitroglycerin paste. Her cardiac enzymes at the outside hospital were negative. Her EKG demonstrated sinus rhythm with interventricular conduction delay and borderline T-wave abnormality in anterior leads as well as baseline artifact. She did receive full-dose aspirin at the outside ER. Reports that the pain at other as an 8/10 intensity has worst. She has also noticed some increased fatigue for the last week. She denies any pleuritic pain. She denies any dyspnea on exertion. She has not had any associated orthopnea or paroxysmal nocturnal dyspnea. She does snore and has daytime fatigue. She has never had a sleep study. She reports a history of GERD but states that this pain is different than her heartburn pain The patient had echocardiogram in 2022 which demonstrated normal left ventricular systolic function and grade 2 diastolic dysfunction. She had a treadmill stress test January 2023 which demonstrated negative Messi exercise stress test for ischemic changes, poor functional capacity Review of Systems 2 Review of Systems: 12 systems were reviewed with pertinent positives and negatives per HPI. Except as documented in the HPI, all other systems were reviewed and are negative. [facility] Past Medical History Medical History (Updated 07/30/24 @ 08:21 by Marcie Fam DO) Pulmonary embolism After cholecystectomy in 1991 Migraines Bipolar disorder Morbid obesity with BMI of 40.0-44.9, adult Necrotizing pneumonia Two thousand twenty-two Insect bite Hx MRSA infection Congestive heart failure Hypertension COPD (chronic obstructive pulmonary disease) Asthma Anxiety Depression Surgical History Surgical History (Updated 07/30/24 @ 08:00 by Marcie Fam DO) History of hysterectomy for benign disease (2007) History of left oophorectomy (~2007) History of incision and drainage Several areas to left forearm for MRSA 2002 History of cholecystectomy (~1991) History of tubal ligation Family History Family History (Updated 07/30/24 @ 08:01 by Marcie Fam DO) Father Valvular heart disease Mother , Mother at age 60. Diabetes mellitus Smoker Sibling Rheumatoid arthritis Has RA in her hands, sees president [employer]. Social History Social History (Updated 07/30/24 @ 07:49 by Marcie Fam DO) Social History: The patient is but lives with her boyfriend, of 26 years, and her daughter and granddaughter. She has a daughter and a son. Her oldest son She used to binge drink about once a month until she was unconscious but quit drinking alcohol around age 41. She used to smoke crack cocaine from about age 26 to age 41. She reports she started smoking in order to deal with her withdrawal from the other substances and she proceeded to smoke 1.5 packs of cigarettes per day for about 8 years but quit smoking at age 51. She works at [employer] in the [employer]. Code status: Full code Surrogate decision maker: Her son Smoking packs per day: 1.5 Smoking cigarettes per day: 30.0 Years smoked: 8 Smoking pack-years: 12.00 Smoking status: Former smoker Tobacco type: cigarettes Second hand tobacco smoke exposure: Yes Alcohol intake: never Substance use: never Substance use type: does not use Do You Feel Safe in your Home?: Yes Lack of Transportation: No Lack of Food: Never True Current Housing: I Have Housing Concerned About Future Housing: No Difficulty Paying Gas/Electric Bills: No Difficulty Paying for Meds: No Currently Unemployed: No Education: High School Diploma/GED Difficulty w/ Childcare or Family Care: No Spiritual care concerns: No Meds Home Medications and Allergies Home Medications ?Medication ?Instructions ?Recorded ?Confirmed ?Type omeprazole magnesium 20 mg 20 mg PO DAILY 04/13/19 07/29/24 History tablet,delayed release (Prilosec OTC) atorvastatin 40 mg tablet 60 mg PO DAILY 06/01/21 07/29/24 History fluoxetine 40 mg capsule (Prozac) 20 mg PO BID 06/01/21 07/29/24 History multivitamin with minerals 1 tablet PO DAILY 12/01/21 07/29/24 History albuterol sulfate 90 mcg/actuation 2 puff inhalation Q4H PRN Wheezing 12/06/21 07/29/24 Rx aerosol inhaler #1 g lisinopril 40 mg tablet 40 mg PO DAILY 10/31/22 07/29/24 History olanzapine 10 mg tablet 10 mg PO HS 11/17/22 07/29/24 History metformin 500 mg tablet,extended 500 mg PO BID 09/28/23 07/29/24 History release 24 hr topiramate 50 mg tablet 50 mg PO DAILY 09/28/23 07/29/24 History cyclobenzaprine 10 mg tablet 10 mg PO TID PRN muscle spasm #14 03/20/24 07/29/24 Rx tabs alprazolam 1 mg tablet 1 mg PO BID PRN Anxiety 07/29/24 07/29/24 History Allergies Allergy/AdvReac Type Severity Reaction Status Date / Time No Known Allergies Allergy Unknown Verified 07/29/24 22:44 Vital Signs Vital Signs - 24 hr 07/29/24 22:24 Temperature 98.0 F Pulse Rate 99 Respiratory Rate 20 Blood Pressure 124/65 Pulse Oximetry 97 Exam 2 Narrative: Weight 121.7 BMI 43.3 Const: Other: Morbidly obese, appears older than stated age HENMT: Other: Mucous membranes are moist, no oral pharyngeal erythema, crowded posterior oropharynx, edentulous in upper and lower jaw Eyes: Other: Pupils are equal and reactive, no scleral icterus, no conjunctival pallor Neck: Other: Large neck circumference, no JVD Resp: Other: Clear to auscultation bilaterally, no increased work of breathing Cardio: Other: Regular rate, regular rhythm, 2+ bilateral radial and pedal pulses, no JVD GI: Other: Soft, nontender, nondistended, positive bowel sounds Skin: Other: No jaundice, no pallor Neuro: Other: Alert oriented, speech is clear, no facial asymmetry Extrem: Other: No clubbing, cyanosis or edema Psych: Other: Appropriate mood and affect, pleasant and cooperative, judgment and insight intact H&P: Results Labs Labs: CBC from outside facility you white count 8.9 hemoglobin 11.6 platelet count 293 PT 10.3 INR 0.9 Sodium 139 potassium 2.8 chloride 103 CO2 27 BUN 5 creatinine 0.6 calcium 8.3 troponin less than 0.012 EKG: From outside facility Test Date: 2024-07-29 16:54:40 Measurements Intervals [place] Rate: 74 P: 60 WA: 155 QRS: 55 QRSD: 111 T: 51 QT: 414 QTc: 460 Interpretive Statements SINUS RHYTHM INTRAVENTRICULAR CONDUCTION DELAY BORDERLINE T WAVE ABNORMALITY- ANTERIOR LEADS BASELINE ARTIFACT- II, III, AVR, AVL, AVF BORDERLINE ECG Compared to ECG 05/26/2024 22:47:55 NO SIGNIFICANT CHANGE Chest x-ray: CHEST RADIOGRAPH, PA AND LATERAL CLINICAL HISTORY: Chest pain . COMPARISON: 12/31/2023 TECHNIQUE: PA and lateral views of the chest. FINDINGS The cardiomediastinal silhouette is unremarkable. The lungs are clear. IMPRESSION: No focal infiltrate or effusion. Repeat labs at our facility: Laboratory Tests 07/30/24 04:47 07/29/24 07/30/24 07/30/24 23:04 01:47 04:47 PT 14.2 INR 1.1 APTT 43.9 H Sodium 140 143 Potassium 3.7 3.1 L Chloride 109 H 110 H Carbon Dioxide 21 L 25 Anion Gap 10 8 BUN 5 L 5 L Creatinine 0.46 L 0.53 L Estim Creat Clear Calc 146 129 Estimated GFR > 60 > 60 Glucose 112 H 98 Calcium 8.5 8.3 L Phosphorus 3.2 Magnesium 1.1 L Troponin I < 0.012 < 0.012 < 0.012 TSH (Reflex) 0.612 All imaging and EKGs personally reviewed and interpreted. And unless stated otherwise agree with radiologic and cardiology interpretation. Assessment and Plan Assessment and plan (1) Chest pain: Qualifiers: Chest pain type: unspecified Qualified Code(s): R07.9 - Chest pain, unspecified Code(s): R07.9 - Chest pain, unspecified Status: Acute (2) Hypokalemia: Code(s): E87.6 - Hypokalemia Status: Acute (3) Hypomagnesemia: Code(s): E83.42 - Hypomagnesemia Status: Acute (4) GERD (gastroesophageal reflux disease): Qualifiers: Esophagitis presence: esophagitis presence not specified Qualified Code(s): K21.9 - Gastro-esophageal reflux disease without esophagitis Code(s): K21.9 - Gastro-esophageal reflux disease without esophagitis Status: Acute Plan Patient has chest pain that was relieved with nitro. The patient does have risk factors for heart disease including hyperlipidemia, prior tobacco use the patient's symptoms are concerning for angina. Patient has been transferred to our facility for further evaluation. Repeat troponins have been ordered. Repeat EKG was performed and reviewed. The patient still reports 1/10 left a chest pain but pain is improved with nitro paste. Will continue when inch of nitropaste. Will start 81 mg aspirin daily. Cardiology has been consulted. Will continue home antihypertensives. Patient was hypokalemic. She received 40 mEq p.o. potassium at outside hospital and 20 mEq IV. Repeat potassium level was performed and was normal. I did check a magnesium level which also came back low. Subsequently 4 g magnesium sulfate rider has been ordered. Patient is currently euglycemic. Will hold her oral hypoglycemic agents. Will place her on low-dose sliding scale insulin Accu-Cheks a.c. HS with hypoglycemia protocol as needed. Will resume home PPI. He Will continue her psychiatric medications. Patient has been admitted as observation status. MEDICAL DECISION MAKING NARRATIVE -Spoke with the ED provider in detail regarding patient's evaluation, workup and management -Patient seen and examined at bedside -Collaborated with patient's nurse at the bedside in detail and addressed all concerns -Labs, electrolytes, radiology, investigations and test results reviewed -ED/Consult/Nursing/Ancilliary notes on the chart reviewed and appreciated -Spoke with patient/family at the bedside and answered all questions Quality VTE Prophylaxis VTE prophylaxis: pharmacologic ordered (One dose 1 milligram/kilogram Lovenox.) Hospitalist MIPS Advance Care Plan I have confirmed that the patient's Advanced Care Plan is present, code status is documented, or surrogate decision maker is listed in patient medical record.: Yes Medication Reconciliation I have utilized all available resources to obtain, update and review the patients current medications (includes all prescriptions, OTC, herbals, cannabis, and nutritional supplements).: Yes
[2024-07-29 23:33] LABS: Troponin I < 0.012 ng/mL (0.000-0.034)
[2024-07-30] VITALS (17 sets, daily range): BP systolic 111–133; BP diastolic 62–88; PULSE 72–82; RESP 14–18; TEMP 36.5–36.9; O2SAT 94–100
--- NOTE | 2024-07-30 | EST_ITS ---
Patient Info Name: Palma Frost Age: 59 years : 1965 Gender: Female Ht: 66 in Wt: 268 lbs BSA: 2.44 m2 HR: 74 bpm BP: 114 / 72 mmHg Exam Date: 07/30/2024 6:07 AM Patient Status: I Admit Date: 07/29/2024 Exam Type: CA stress teodoro w NM A regadenoson stress test was performed. Staff Referring Physician: Jeffery Flores DO Attending Provider: Micheal Galdamez Exercise Technologist: Janet Murphy Exercise Physician: Jeffery Flores DO Summary 1. 1. Negative lexiscan stress test for ischemic ST changes by ECG criteria. 2. 2. Stable hemodynamics throughout the test. 3. 3. Nuclear scan to follow and will be reported separately. Please correlate with it. 4. 4. Patient informed of the above results. Protocol: Lexiscan Stress ECG Details Stage: REST Duration (min): 1 min : 45 sec HR (bpm): 74 SBP (mmHg): 114 DBP (mmHg): 72 Stage: REST Duration (min): 5 min : 53 sec HR (bpm): 76 SBP (mmHg): 116 DBP (mmHg): 67 Stage: STAGE 1 Duration (min): 1 min : 0 sec HR (bpm): 86 SBP (mmHg): 116 DBP (mmHg): 70 Stage: RECOVERY Duration (min): 1 min : 0 sec HR (bpm): 86 SBP (mmHg): 116 DBP (mmHg): 70 Stage: RECOVERY Duration (min): 2 min : 0 sec HR (bpm): 83 SBP (mmHg): 116 DBP (mmHg): 70 Stage: RECOVERY Duration (min): 3 min : 0 sec HR (bpm): 81 SBP (mmHg): 117 DBP (mmHg): 69 Stage: RECOVERY Duration (min): 4 min : 0 sec HR (bpm): 81 SBP (mmHg): 117 DBP (mmHg): 69 Stage: RECOVERY Duration (min): 5 min : 0 sec HR (bpm): 80 SBP (mmHg): 120 DBP (mmHg): 69 Stage: RECOVERY Duration (min): 5 min : 2 sec HR (bpm): 79 SBP (mmHg): 120 DBP (mmHg): 69 Rest HR: 76 bpm Peak HR: 89 bpm Rest Sys BP: 116 mmHg Peak Sys BP: 120 mmHg Max Pred HR: 162 bpm % Max Pred HR: 55 % Target HR: 138 bpm Max RPP: 10,680 bpm*mmHg Termination Reason: Completed protocol Cardiac Symptoms: Shortness of breath Total Time: 1 min : 0 sec Rest Pearson BP: 67 mmHg Peak Pearson BP: 69 mmHg Total Dose: 0.4 mg Resting ECG Sinus rhythm. Stress ECG No ST changes. Arrhythmias None. Report Signatures
--- NOTE | 2024-07-30 | ECHO_ITS ---
Patient Info Name: Palma Frost Age: 59 years : 1965 Gender: Female Ht: 66 in Wt: 268 lbs BSA: 2.44 m2 HR: 78 bpm BP: 133 / 88 mmHg Technical Quality: Good Exam Date: 07/30/2024 10:42 AM Patient Status: I Admit Date: 07/29/2024 Exam Type: CA echo doppler color flow Complete two-dimensional, color flow and Doppler transthoracic echocardiogram is performed. Staff Referring Physician: Jeffery Flores DO Seam Finisher: Haley Fisher Attending Provider: Micheal Galdamez Summary 1. Complete two-dimensional, color flow and Doppler transthoracic echocardiogram is performed. 2. Left ventricular chamber dimension is normal. 3. Left ventricular systolic function is normal, estimated at 60-65. 4. The left ventricular diastolic function is normal. 5. E/e' 7 is not elevated. 6. Left atrial chamber dimension is mildly enlarged. 7. There is trace mitral valve regurgitation. 8. There is trace tricuspid valve regurgitation. 9. No pulmonary hypertension, estimated pulmonary arterial systolic pressure is 34 mmHg. Left Ventricle E/e' 7 is not elevated. Left ventricular chamber dimension is normal. Left ventricular systolic function is normal, estimated at 60-65. The left ventricular diastolic function is normal. Right Ventricle Right ventricular chamber dimension is normal. Right ventricular systolic function is normal and with normal TAPSE 2.6 cm. Left Atria Left atrial chamber dimension is mildly enlarged. Right Atria Right atrial chamber dimension is normal. Aortic Valve The aortic valve is trileaflet. There is no aortic valve stenosis. There is no aortic valve regurgitation. Pulmonic Valve There is no pulmonic regurgitation. Mitral Valve There is no mitral valve stenosis. There is trace mitral valve regurgitation. Tricuspid Valve There is trace tricuspid valve regurgitation. No pulmonary hypertension, estimated pulmonary arterial systolic pressure is 34 mmHg. Pericardium/Pleural There is no pericardial effusion. Inferior Vena Cava Normal inferior vena cava with >50% collapse upon inspiration consistent with normal right atrial pressure, 5 mmHg. Aorta The aortic root size at the sinus of Valsalva is normal. Left Ventricular Outflow Tract Name Value Normal LVOT 2D LVOT Diameter 2.0 cm LVOT Doppler LVOT Peak Velocity 108 cm/s LVOT Peak Gradient 5 mmHg LVOT Mean Gradient 3 mmHg LVOT VTI 24 cm LVOT VTI/AV VTI Ratio 1.0 LVOT Stroke Volume 73 ml LVOT CO 5.2 l/min LVOT CI 2.1 l/min/m2 Pulmonic Valve Name Value Normal PV Doppler PV Peak Velocity 97 cm/s PV Peak Gradient 4 mmHg Mitral Valve Name Value Normal MV Diastolic Function MV E Peak Velocity 81 cm/s MV A Peak Velocity 79 cm/s MV E/A 1.0 MV Decel Time (PW) 207 ms MV Annular TDI MV E/e' (Septal) 8.5 MV E/e' (Lateral) 6.6 MV E/e' (Average) 7.6 Tricuspid Valve Name Value Normal TV Regurgitation Doppler TR Peak Velocity 271 cm/s TR Peak Gradient 29 mmHg Estimated PAP/RSVP RA Pressure 5 mmHg <=5 PA Systolic Pressure 34 mmHg <36 RV Systolic Pressure 34 mmHg <36 TV Annular TDI TV Lateral Shalonda s' Velocity 12.6 cm/s >=9.5 Aortic Valve Name Value Normal AV Doppler AV Peak Velocity 112 cm/s AV Peak Gradient 5 mmHg AV Mean Gradient 3 mmHg AV VTI 24 cm AV Area (Cont Eq VTI) 3.1 cm2 >=3.0 AV Area (Cont Eq Ja) 2.9 cm2 AV DI (Ja) 0.96 AV Regurgitation 2D LVOT Area 3.0 cm2 Ventricles Name Value Normal LV Dimensions 2D/MM IVS Diastolic Thickness (2D) 1.0 cm 0.6-1.0 LVID Diastole (2D) 5.1 cm 3.8-5.2 LVIW Diastolic Thickness (2D) 1.0 cm 0.6-0.9 LVID Systole (2D) 3.4 cm 2.2-3.5 LVOT Diameter 2.0 cm LV Mass (2D Cubed) 191.08 g 67.00-162.00 LV Mass Index (2D Cubed) 78 g/m2 43-95 Relative Wall Thickness (2D) 0.39 <=0.42 LV Fractional Shortening/Ejection Fraction 2D/MM LV Fractional Shortening (2D) 34 % 27-45 LV EF (2D Teichholz) 62 % LV Diastolic Volume (4C MOD) 114 ml LV EF (4C MOD) 63 % LV Diastolic Volume (2C MOD) 83 ml LV EF (2C MOD) 61 % LV Diastolic Volume (BP MOD) 99 ml 46-106 LV Diastolic Volume Index (BP MOD) 41 ml/m2 29-61 LV Systolic Volume (BP MOD) 37 ml 14-42 LV Systolic Volume Index (BP MOD) 15 ml/m2 8-24 LV EF (BP MOD) 63 % 54-74 LV Diastolic Length (4C) 7.9 cm LV Systolic Length (4C) 5.9 cm LV Stroke Volume (4C MOD) 71 ml Atria Name Value Normal LA Dimensions LA Volume (4C A-L) 75 ml LA Volume (BP A-L) 66 ml RA Dimensions RA Systolic Major Aurora Length (4C) 5.2 cm 2.2-2.8 RA Area (4C) 16.9 cm2 <=18.0 Report Signatures
[2024-07-30 00:12] LABS: Anion Gap 10 mmol/L (4-12); Blood Urea Nitrogen 5 mg/dL (7-17); Calcium 8.5 mg/dL (8.4-10.2); Carbon Dioxide 21 mmol/L (22-30); Chloride 109 mmol/L (98-107); Estimated CRCL calculation 146 ml/min; Estimated Glomerular Filt Rate > 60; Glucose 112 mg/dL (65-110); Magnesium 1.1 mg/dL (1.6-2.3); Phosphorus 3.2 mg/dL (2.5-4.5); Potassium 3.7 mmol/L (3.4-5.0); Sodium 140 mmol/L (137-145)
[2024-07-30] MEDS: NITROGLYCERIN OINTMENT 1 INCH DOSE TRANSDERM ×3 (01:46→20:36)
[2024-07-30 02:13] LABS: Troponin I < 0.012 ng/mL (0.000-0.034)
[2024-07-30] MEDS: MAGNESIUM SULF 4 GM/WATER100ML 4 GM/100 ML BAG IVPB (04:59)
[2024-07-30 05:12] LABS: Anion Gap 8 mmol/L (4-12); Blood Urea Nitrogen 5 mg/dL (7-17); Calcium 8.3 mg/dL (8.4-10.2); Carbon Dioxide 25 mmol/L (22-30); Chloride 110 mmol/L (98-107); Estimated CRCL calculation 129 ml/min; Estimated Glomerular Filt Rate > 60; Glucose 98 mg/dL (65-110); Potassium 3.1 mmol/L (3.4-5.0); Sodium 143 mmol/L (137-145)
[2024-07-30 05:20] LABS: Troponin I < 0.012 ng/mL (0.000-0.034)
[2024-07-30 05:23] LABS: INR 1.1; Prothrombin Time 14.2 Seconds (11.1-14.7)
[2024-07-30 05:24] LABS: Partial Thromboplastin Time 43.9 Seconds (22.3-36.8)
[2024-07-30 05:40] LABS: Thyroid Stimulating Hormone Reflex 0.612 uIU/mL (0.465-4.68)
--- NOTE | 2024-07-30 07:49 | P.CONCA_ITS ---
Assessment and Plan Assessment and plan (1) Hypertension: Code(s): I10 - Essential (primary) hypertension Status: Acute Assessment and Plan: Stable. (2) Dyslipidemia: Code(s): E78.5 - Hyperlipidemia, unspecified Status: Acute Assessment and Plan: On Atorvastatin. (3) ALLEN (dyspnea on exertion): Code(s): R06.09 - Other forms of dyspnea Status: Resolved Assessment and Plan: Obtain echo. (4) Chest pain: Qualifiers: Chest pain type: unspecified Qualified Code(s): R07.9 - Chest pain, unspecified Code(s): R07.9 - Chest pain, unspecified Status: Acute Assessment and Plan: She has been r/o for HI by serial troponin and EKG. Obtain Intilery.comiscan myoview stress test for chest pain. If abnormal, then [facility] tomorrow. History of Present Illness History of Present Illness Consult date/time: 07/30/24 07:49 Reason For Visit: chest pain, hypokalemia Narrative: 59 yr old woman who is my regular cardiology patient and a patient of RODRIGO Mortensen, presents to ER with chest pain. She has a history of hypertension, dyslipidemia, anxiety, former smoker, family history of father and cousin with CAD. States she got off work, was just sitting at home when she had chest pressure/tightness in left chest. She was seen at [facility] and transferred here. No chest pain right now. Reports she is limited at walking 2 blocks due to ALLEN. She has dizziness while seated or standing twice a week. She drinks only mountain dew and no water. Denies chest pain, sob, orthopnea, PND, palpitations. Cardiovascular Procedures Echo/MUGA:: 11/21/21 Echo: EF 60-65%, grade II diastolic dysfunction (E/e' 11), mild TR. Electrophysiology:: 10/31/22 EKG: Sinus rhythm, delayed precordial R/S transition, borderline T wave in anterior leads. 08/29/21 EKG: Sinus rhythm, low voltage in limb leads, borderline T wave in anterior leads. Stress Tests:: 01/22/23 Stress test: Negative for ischemia; exercised for 3 minutes. 08/29/21 CTA chest: No pulm embolism. RUL atelectasis/scarring. Left pulm nodules of 4 mm or less; f/u CT 12 months. Review of Systems 2 Review of Systems: All systems reviewed & are unremarkable except as noted in HPI and below Constitutional: Constitutional: Reports as per HPI, Denies chills and Denies fever(s) Cardiovascular: Cardiovascular: Reports as per HPI and Reports chest pain Respiratory: Respiratory: Reports as per HPI, Denies dyspnea and Reports dyspnea on exertion Gastrointestinal: Gastrointestinal: Reports as per HPI and Denies abdominal pain Genitourinary: Genitourinary: Reports as per HPI and Denies dysuria Musculoskeletal: Musculoskeletal: Reports as per HPI Neurologic: Reports as per HPI, Denies dizziness and Denies syncope ON LICENSE OF [facility] Past Medical History Medical History (Updated 07/30/24 @ 08:21 by Marcie Fam DO) Pulmonary embolism After cholecystectomy in 1991 Migraines Bipolar disorder Morbid obesity with BMI of 40.0-44.9, adult Necrotizing pneumonia Two thousand twenty-two Insect bite Hx MRSA infection Congestive heart failure Hypertension COPD (chronic obstructive pulmonary disease) Asthma Anxiety Depression Surgical History Surgical History (Updated 07/30/24 @ 08:00 by Marcie Fam DO) History of hysterectomy for benign disease (2007) History of left oophorectomy (~2007) History of incision and drainage Several areas to left forearm for MRSA 2002 History of cholecystectomy (~1991) History of tubal ligation Family History Family History (Updated 07/30/24 @ 08:01 by Marcie Fam DO) Father Valvular heart disease Mother , Mother at age 60. Diabetes mellitus Smoker Sibling Rheumatoid arthritis Has RA in her hands, sees safety equipment tester. Social History Social History (Updated 07/30/24 @ 07:49 by Marcie Fam DO) Social History: The patient is but lives with her boyfriend, of 26 years, and her daughter and granddaughter. She has a daughter and a son. Her oldest son She used to binge drink about once a month until she was unconscious but quit drinking alcohol around age 41. She used to smoke crack cocaine from about age 26 to age 41. She reports she started smoking in order to deal with her withdrawal from the other substances and she proceeded to smoke 1.5 packs of cigarettes per day for about 8 years but quit smoking at age 51. She works at [employer] in the [employer]. Code status: Full code Surrogate decision maker: Her son Smoking packs per day: 1.5 Smoking cigarettes per day: 30.0 Years smoked: 8 Smoking pack-years: 12.00 Smoking status: Former smoker Tobacco type: cigarettes Second hand tobacco smoke exposure: Yes Alcohol intake: never Substance use: never Substance use type: does not use Do You Feel Safe in your Home?: Yes Lack of Transportation: No Lack of Food: Never True Current Housing: I Have Housing Concerned About Future Housing: No Difficulty Paying Gas/Electric Bills: No Difficulty Paying for Meds: No Currently Unemployed: No Education: High School Diploma/GED Difficulty w/ Childcare or Family Care: No Spiritual care concerns: No Meds Home Medications and Allergies Home Medications ?Medication ?Instructions ?Recorded ?Confirmed ?Type omeprazole magnesium 20 mg 20 mg PO DAILY 04/13/19 07/29/24 History tablet,delayed release (Prilosec OTC) atorvastatin 40 mg tablet 60 mg PO DAILY 06/01/21 07/29/24 History fluoxetine 40 mg capsule (Prozac) 20 mg PO BID 06/01/21 07/29/24 History multivitamin with minerals 1 tablet PO DAILY 12/01/21 07/29/24 History albuterol sulfate 90 mcg/actuation 2 puff inhalation Q4H PRN Wheezing 12/06/21 07/29/24 Rx aerosol inhaler #1 g lisinopril 40 mg tablet 40 mg PO DAILY 10/31/22 07/29/24 History olanzapine 10 mg tablet 10 mg PO HS 11/17/22 07/29/24 History metformin 500 mg tablet,extended 500 mg PO BID 09/28/23 07/29/24 History release 24 hr topiramate 50 mg tablet 50 mg PO DAILY 09/28/23 07/29/24 History cyclobenzaprine 10 mg tablet 10 mg PO TID PRN muscle spasm #14 03/20/24 07/29/24 Rx tabs alprazolam 1 mg tablet 1 mg PO BID PRN Anxiety 07/29/24 07/29/24 History Allergies Allergy/AdvReac Type Severity Reaction Status Date / Time No Known Allergies Allergy Unknown Verified 07/29/24 22:44 Vital Signs Vital Signs - 24 hr 07/29/24 22:24 07/30/24 00:00 07/30/24 00:00 Temperature 98.0 F Pulse Rate 99 72 Respiratory Rate 20 Blood Pressure 124/65 Pulse Oximetry 97 Oxygen Delivery Room Air 07/30/24 01:44 07/30/24 02:00 07/30/24 04:00 Temperature 98.2 F 98.5 F Pulse Rate 74 78 76 Respiratory Rate 14 16 Blood Pressure 115/65 133/88 Pulse Oximetry 100 95 Oxygen Delivery 07/30/24 04:00 07/30/24 04:00 07/30/24 06:00 Temperature Pulse Rate 78 78 Respiratory Rate Blood Pressure Pulse Oximetry Oxygen Delivery Room Air 07/30/24 07:12 Temperature 97.9 F Pulse Rate 78 Respiratory Rate 18 Blood Pressure 115/68 Pulse Oximetry 95 Oxygen Delivery Exam 2 Const: General: cooperative, healthy appearing and comfortable Resp: Auscultation: clear to auscultation bilaterally, no crackles, no rales, no rhonchi and no wheezes Cardio: Rate: regular rate Rhythm: regular rhythm Heart sounds: no murmurs Peripheral pulses: dorsalis pedis present GI: GI Palp: No abdominal tenderness and Yes Soft to palpation Neuro: General: oriented to person, oriented to place and oriented to time Extrem: Right lower extremity: no edema Left lower extremity: no edema Results Labs and Meds 07/30/24 04:47 Lab results: Cardiac Enzymes 07/29/24 07/30/24 07/30/24 Range/Units 23:04 01:47 04:47 Troponin I < 0.012 < 0.012 < 0.012 (0.000-0.034) ng/mL Coagulation 07/30/24 Range/Units 04:47 PT 14.2 (11.1-14.7) Seconds APTT 43.9 H (22.3-36.8) Seconds Comprehensive Metabolic Panel 07/29/24 07/30/24 Range/Units 23:04 04:47 Sodium 140 143 (137-145) mmol/L Potassium 3.7 3.1 L (3.4-5.0) mmol/L Chloride 109 H 110 H (98-107) mmol/L Carbon Dioxide 21 L 25 (22-30) mmol/L BUN 5 L 5 L (7-17) mg/dL Creatinine 0.46 L 0.53 L (0.7-1.0) mg/dL Glucose 112 H 98 (65-110) mg/dL Calcium 8.5 8.3 L (8.4-10.2) mg/dL Intake and Output 07/29/24 07/29/24 07/30/24 15:59 23:59 07:59 Other: # Unmeasured Voids 1 Patient Weight 07/30/24 23:59 Weight 121.7 kg
--- NOTE | 2024-07-30 08:14 | PC.NURSE ---
0805 - to [facility] for Lexiscan via wheelchair accompanied by staff
[2024-07-30] MEDS: FLUoxetine HCL 20 MG CAPSULE PO ×2 (11:08→17:09)
[2024-07-30] MEDS: ASPIRIN 81 MG ENTERIC TABLET PO (11:08)
[2024-07-30] MEDS: ATORVASTATIN 20 MG TABLET 60 MG PO (11:08)
[2024-07-30] MEDS: TOPIRAMATE 25 MG TABLET 50 MG PO (11:08)
[2024-07-30] MEDS: THERAPEUTIC MULTIVITAMINS/MINERALS TAB (*BKC) 1 TABLET PO (11:09)
[2024-07-30] MEDS: lisinopriL 20 MG TABLET 40 MG PO (11:09)
[2024-07-30] MEDS: PANTOPRAZOLE 40 MG TABLET PO (11:11)
[2024-07-30] MEDS: POTASSIUM CHLORIDE 20 MEQ ER TABLET 40 MEQ PO (11:54)
--- NOTE | 2024-07-30 12:23 | PM.IMPN ---
Progress Note: A&P Assessment and Plan (1) Chest pain: Qualifiers: Chest pain type: unspecified Qualified Code(s): R07.9 - Chest pain, unspecified Code(s): R07.9 - Chest pain, unspecified Status: Acute (2) Hypokalemia: Code(s): E87.6 - Hypokalemia Status: Acute (3) Hypomagnesemia: Code(s): E83.42 - Hypomagnesemia Status: Acute (4) GERD (gastroesophageal reflux disease): Qualifiers: Esophagitis presence: esophagitis presence not specified Qualified Code(s): K21.9 - Gastro-esophageal reflux disease without esophagitis Code(s): K21.9 - Gastro-esophageal reflux disease without esophagitis Status: Acute Plan Chest pain Troponin neg Stress test abnormal Plan for cardiac cath tomorrow Continue with ASA, Statin, Coreg, lisinopril HTN LIsinopril HLD statin Hypokalemia replete as needed GERD PPI depression/bipolar [employer] DEV[employer] meds Subjective Date/time seen: 07/30/24 12:23 Interval history: per HPI: 59-year-old female with a past medical history of essential hypertension, type 2 diabetes mellitus, peripheral neuropathy, diastolic congestive heart failure, COPD/asthma, bipolar disorder, 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 The patient reports that she was sitting down to watch TV after she got home from work when she began having pain in her left jaw that radiated down into her neck and into the left side of her chest as well as her left arm. It was accompanied by some nausea and some tingling of her left extremity. Symptoms started approximately 30 minutes prior to arrival to the ER. She reports that the pain at in her arm and jaw have resolved but she is still having some left-sided chest pain. Her pain was relieved after nitroglycerin administration at the outside ER. She did have a recurrence for pain and had an additional 2 doses of nitroglycerin with relief in her symptoms. She was subsequently placed on nitroglycerin paste. Her cardiac enzymes at the outside hospital were negative. Her EKG demonstrated sinus rhythm with interventricular conduction delay and borderline T-wave abnormality in anterior leads as well as baseline artifact. She did receive full-dose aspirin at the outside ER. Reports that the pain at other as an 8/10 intensity has worst. She has also noticed some increased fatigue for the last week. She denies any pleuritic pain. She denies any dyspnea on exertion. She has not had any associated orthopnea or paroxysmal nocturnal dyspnea. She does snore and has daytime fatigue. She has never had a sleep study. She reports a history of GERD but states that this pain is different than her heartburn pain The patient had echocardiogram in 2022 which demonstrated normal left ventricular systolic function and grade 2 diastolic dysfunction. She had a treadmill stress test January 2023 which demonstrated negative Messi exercise stress test for ischemic changes, poor functional capacity 07/30/24 Patient was seen and examined at bedside. she is feeling better. her chest pain is better. denies any SOB, abd pain, N/V. Stress test abnormal. cardiology team onboard, plan for cardiac cath tomorrow. Review of Systems Review of Systems: 12 systems were reviewed with pertinent positives and negatives per HPI. Except as documented in the HPI, all other systems were reviewed and are negative. Exam Narrative: Weight 121.7 BMI 43.3 Const: Other: Morbidly obese, appears older than stated age HENMT: Other: Mucous membranes are moist, no oral pharyngeal erythema, crowded posterior oropharynx, edentulous in upper and lower jaw Eyes: Other: Pupils are equal and reactive, no scleral icterus, no conjunctival pallor Neck: Other: Large neck circumference, no JVD Resp: Other: Clear to auscultation bilaterally, no increased work of breathing Cardio: Other: Regular rate, regular rhythm, 2+ bilateral radial and pedal pulses, no JVD GI: Other: Soft, nontender, nondistended, positive bowel sounds Skin: Other: No jaundice, no pallor Neuro: Other: Alert oriented, speech is clear, no facial asymmetry Extrem: Other: No clubbing, cyanosis or edema Psych: Other: Appropriate mood and affect, pleasant and cooperative, judgment and insight intact Objective Data Vital Signs Vital Signs: Vital Signs - 24 hr 07/29/24 22:24 07/30/24 00:00 07/30/24 00:00 Temperature 98.0 F Pulse Rate 99 72 Respiratory Rate 20 Blood Pressure 124/65 Pulse Oximetry 97 Oxygen Delivery Room Air 07/30/24 01:44 07/30/24 02:00 07/30/24 04:00 Temperature 98.2 F 98.5 F Pulse Rate 74 78 76 Respiratory Rate 14 16 Blood Pressure 115/65 133/88 Pulse Oximetry 100 95 Oxygen Delivery 07/30/24 04:00 07/30/24 04:00 07/30/24 06:00 Temperature Pulse Rate 78 78 Respiratory Rate Blood Pressure Pulse Oximetry Oxygen Delivery Room Air 07/30/24 07:12 07/30/24 08:00 07/30/24 11:17 Temperature 97.9 F 98 F Pulse Rate 78 78 73 Respiratory Rate 18 18 Blood Pressure 115/68 117/65 Pulse Oximetry 95 96 Oxygen Delivery Meds/Results Medications: Active Medications Generic Name Dose Route Start Last Admin Trade Name Freq PRN Reason Stop Dose Admin Acetaminophen 650 mg 07/29/24 22:51 Acetaminophen 325 Mg Tablet PO Q4H PRN Mild Pain (1-3) or Fever Albuterol 2 puff 07/29/24 22:53 Albuterol Sulfate (*Sp) Aerosol 1 Puff INHALATION Q4H PRN Wheezing Alprazolam 1 mg 07/29/24 22:53 Alprazolam (*Crx) 0.5 Mg Tablet PO BID PRN Anxiety Aspirin 81 mg 07/30/24 09:00 07/30/24 11:08 Aspirin 81 Mg Enteric Tablet PO 81 mg QAM DANAE Administration Atorvastatin Calcium 60 mg 07/30/24 09:00 07/30/24 11:08 Atorvastatin 20 Mg Tablet PO 60 mg DAILY DANAE Administration Bisacodyl 5 mg 07/29/24 22:51 Bisacodyl 5 Mg Tablet Ec PO QAM PRN Constipation Calcium Carbonate 200 mg 07/29/24 22:51 Calcium Carbonate (Tums) 500 Mg (200 Mg Elemental) PO Q6H PRN Indigestion Cyclobenzaprine HCl 10 mg 07/29/24 22:53 Cyclobenzaprine Hcl 10 Mg Tablet PO TID PRN muscle spasm Fluoxetine HCl 20 mg 07/30/24 09:00 07/30/24 11:08 Fluoxetine Hcl 20 Mg Capsule PO 20 mg BID DANAE Administration Lisinopril 40 mg 07/30/24 09:00 07/30/24 11:09 Lisinopril 20 Mg Tablet PO 40 mg DAILY DANAE Administration Morphine Sulfate 2 mg 07/29/24 22:53 Morphine Sulfate (*Crx) 2 Mg/Ml Inj IV PUSH Q2H PRN Chest Pain Multivitamins/Calcium 1 tablet 07/30/24 09:00 07/30/24 11:09 Therapeutic Multivitamins/Minerals Tab (*Bkc) PO 1 tablet DAILY DANAE Administration Naloxone HCl 0.1 mg 07/29/24 22:53 Naloxone Hcl 0.4 Mg/Ml Vial IV PUSH Q2M PRN Opiate Reversal Nitroglycerin 1 inch 07/30/24 02:30 07/30/24 11:55 Nitroglycerin Ointment 1 Inch Dose TRANSDERM 1 inch Q6H DANAE Administration Olanzapine 10 mg 07/29/24 23:05 07/29/24 23:26 Olanzapine 5 Mg Tablet PO 10 mg HS DANAE Administration Ondansetron HCl 4 mg 07/29/24 22:53 Ondansetron Inj 4 Mg/2 Ml Vial IV PUSH Q6H PRN Nausea And Vomiting Pantoprazole Sodium 40 mg 07/30/24 09:00 07/30/24 11:11 Pantoprazole 40 Mg Tablet PO 40 mg QAM DANAE Administration Perflutren Lipid Microsphere 0 ml 07/30/24 06:08 Perflutren Lipid Microspheres 1.5 Ml Vial Diluted To 10 Ml Total Volume IV PUSH 08/02/24 06:08 ONCE PRN adequate visualization Protocol Topiramate 50 mg 07/30/24 09:00 07/30/24 11:08 Topiramate 25 Mg Tablet PO 50 mg DAILY DANAE Administration Radiology Results: ITS Impressions Lexiscan Stress Test 07/30/24 10:57 IMPRESSION: 1. Moderate-sized moderate sized infarct involving primarily the circumflex coronary artery vascular distribution with superimposed small region of mild reversible ischemia at the apical and apical inferior segments. 2. Left ventricular ejection fraction measuring >70%. Labs Labs: Laboratory Results - last 24 hr 07/29/24 07/30/24 07/30/24 23:04 01:47 04:47 PT 14.2 INR 1.1 APTT 43.9 H Sodium 140 143 Potassium 3.7 3.1 L Chloride 109 H 110 H Carbon Dioxide 21 L 25 Anion Gap 10 8 BUN 5 L 5 L Creatinine 0.46 L 0.53 L Estim Creat Clear Calc 146 129 Estimated GFR > 60 > 60 Glucose 112 H 98 Calcium 8.5 8.3 L Phosphorus 3.2 Magnesium 1.1 L Troponin I < 0.012 < 0.012 < 0.012 TSH (Reflex) 0.612 Quality VTE Prophylaxis VTE prophylaxis: pharmacologic ordered (One dose 1 milligram/kilogram Lovenox.)
--- NOTE | 2024-07-30 16:17 | P.CONCA_ITS ---
Assessment and Plan Assessment and plan (1) Chest pain: Qualifiers: Chest pain type: unspecified Qualified Code(s): R07.9 - Chest pain, unspecified Code(s): R07.9 - Chest pain, unspecified Status: Acute (2) Hypertension: Code(s): I10 - Essential (primary) hypertension Status: Acute (3) Dyslipidemia: Code(s): E78.5 - Hyperlipidemia, unspecified Status: Acute Plan 51-year-old woman with diabetes, hypertension, and hyperlipidemia presented with chest discomfort who underwent nuclear stress test after being ruled out for UT via biomarkers found to have helena-infarct ischemia for which a left heart cardiac catheterization with possible PCI have been requested Chest pain -given her abnormal nuclear stress test, we have discussed cardiac catheterization with possible PCI along with its risk, benefits, and alternatives -after patient expressed understanding, and all questions were answered, she agreed to proceed for with cardiac catheterization with possible PCI tomorrow morning -continue aspirin 81 mg p.o. daily -keep NPO past midnight Hyperlipidemia -continue atorvastatin Hypertension -continue lisinopril History of Present Illness History of Present Illness Consult date/time: 07/30/24 16:17 Requesting physician: Jeffery Flores DO Consult reason: Other Reason For Visit: chest pain, hypokalemia Narrative: 51-year-old woman with diabetes, hypertension, and hyperlipidemia presented with chest discomfort who underwent nuclear stress test after being ruled out for UT via biomarkers found to have helena-infarct ischemia for which a left heart cardiac catheterization with possible PCI have been requested. The chest pain occurred 2 days ago and is substernal and left-sided of a discomfort sensation lasting for 20 minutes resolved with nitroglycerin in the emergency room however reoccur on the floors that once again was resolved with nitroglycerin. Previously had not had any exertional cardiopulmonary limitations however have been having more significant fatigue. Review of Systems 2 Cardiovascular: Cardiovascular: Reports as per HPI Respiratory: Respiratory: Reports as per HPI [facility] Past Medical History Medical History (Updated 07/30/24 @ 08:21 by Marcie Fam DO) Pulmonary embolism After cholecystectomy in 1991 Migraines Bipolar disorder Morbid obesity with BMI of 40.0-44.9, adult Necrotizing pneumonia Two thousand twenty-two Insect bite Hx MRSA infection Congestive heart failure Hypertension COPD (chronic obstructive pulmonary disease) Asthma Anxiety Depression Surgical History Surgical History (Updated 07/30/24 @ 08:00 by Marcie Fam DO) History of hysterectomy for benign disease (2007) History of left oophorectomy (~2007) History of incision and drainage Several areas to left forearm for MRSA 2002 History of cholecystectomy (~1991) History of tubal ligation Family History Family History (Updated 07/30/24 @ 08:01 by Marcie Fam DO) Father Valvular heart disease Mother , Mother at age 60. Diabetes mellitus Smoker Sibling Rheumatoid arthritis Has RA in her hands, sees administrative personal assistant. Social History Social History (Updated 07/30/24 @ 07:49 by Marcie Fam DO) Social History: The patient is but lives with her boyfriend, of 26 years, and her daughter and granddaughter. She has a daughter and a son. Her oldest son She used to binge drink about once a month until she was unconscious but quit drinking alcohol around age 41. She used to smoke crack cocaine from about age 26 to age 41. She reports she started smoking in order to deal with her withdrawal from the other substances and she proceeded to smoke 1.5 packs of cigarettes per day for about 8 years but quit smoking at age 51. She works at [employer] in the [employer]. Code status: Full code Surrogate decision maker: Her son Smoking packs per day: 1.5 Smoking cigarettes per day: 30.0 Years smoked: 8 Smoking pack-years: 12.00 Smoking status: Former smoker Tobacco type: cigarettes Second hand tobacco smoke exposure: Yes Alcohol intake: never Substance use: never Substance use type: does not use Do You Feel Safe in your Home?: Yes Lack of Transportation: No Lack of Food: Never True Current Housing: I Have Housing Concerned About Future Housing: No Difficulty Paying Gas/Electric Bills: No Difficulty Paying for Meds: No Currently Unemployed: No Education: High School Diploma/GED Difficulty w/ Childcare or Family Care: No Spiritual care concerns: No Meds Home Medications and Allergies Home Medications ?Medication ?Instructions ?Recorded ?Confirmed ?Type omeprazole magnesium 20 mg 20 mg PO DAILY 04/13/19 07/29/24 History tablet,delayed release (Prilosec OTC) atorvastatin 40 mg tablet 60 mg PO DAILY 06/01/21 07/29/24 History fluoxetine 40 mg capsule (Prozac) 20 mg PO BID 06/01/21 07/29/24 History multivitamin with minerals 1 tablet PO DAILY 12/01/21 07/29/24 History albuterol sulfate 90 mcg/actuation 2 puff inhalation Q4H PRN Wheezing 12/06/21 07/29/24 Rx aerosol inhaler #1 g lisinopril 40 mg tablet 40 mg PO DAILY 10/31/22 07/29/24 History olanzapine 10 mg tablet 10 mg PO HS 11/17/22 07/29/24 History metformin 500 mg tablet,extended 500 mg PO BID 09/28/23 07/29/24 History release 24 hr topiramate 50 mg tablet 50 mg PO DAILY 09/28/23 07/29/24 History cyclobenzaprine 10 mg tablet 10 mg PO TID PRN muscle spasm #14 03/20/24 07/29/24 Rx tabs alprazolam 1 mg tablet 1 mg PO BID PRN Anxiety 07/29/24 07/29/24 History Allergies Allergy/AdvReac Type Severity Reaction Status Date / Time No Known Allergies Allergy Unknown Verified 07/29/24 22:44 Vital Signs Vital Signs - 24 hr 07/29/24 22:24 07/30/24 00:00 07/30/24 00:00 Temperature 36.7 C Pulse Rate 99 72 Respiratory Rate 20 Blood Pressure 124/65 Pulse Oximetry 97 Oxygen Delivery Room Air 07/30/24 01:44 07/30/24 02:00 07/30/24 04:00 Temperature 36.8 C 36.9 C Pulse Rate 74 78 76 Respiratory Rate 14 16 Blood Pressure 115/65 133/88 Pulse Oximetry 100 95 Oxygen Delivery 07/30/24 04:00 07/30/24 04:00 07/30/24 06:00 Temperature Pulse Rate 78 78 Respiratory Rate Blood Pressure Pulse Oximetry Oxygen Delivery Room Air 07/30/24 07:12 07/30/24 08:00 07/30/24 11:17 Temperature 36.6 C 36.6 C Pulse Rate 78 78 73 Respiratory Rate 18 18 Blood Pressure 115/68 117/65 Pulse Oximetry 95 96 Oxygen Delivery 07/30/24 12:00 07/30/24 14:00 07/30/24 15:39 Temperature 36.5 C Pulse Rate 78 79 74 Respiratory Rate 18 Blood Pressure 111/64 Pulse Oximetry 96 Oxygen Delivery Exam 2 Const: General: comfortable HENMT: Mouth: Yes moist mucous membranes Eyes: EOM: EOMs intact bilaterally Neck: Neck: no JVD Resp: Effort & Inspection: normal respiratory effort Auscultation: clear to auscultation bilaterally Cardio: Rate: regular rate Rhythm: regular rhythm GI: GI Palp: Yes Soft to palpation Neuro: Speech: normal speech Extrem: General: no pedal edema Results Labs and Meds 07/30/24 04:47 Lab results: Cardiac Enzymes 07/29/24 07/30/24 07/30/24 Range/Units 23:04 01:47 04:47 Troponin I < 0.012 < 0.012 < 0.012 (0.000-0.034) ng/mL Coagulation 07/30/24 Range/Units 04:47 PT 14.2 (11.1-14.7) Seconds APTT 43.9 H (22.3-36.8) Seconds Comprehensive Metabolic Panel 07/29/24 07/30/24 Range/Units 23:04 04:47 Sodium 140 143 (137-145) mmol/L Potassium 3.7 3.1 L (3.4-5.0) mmol/L Chloride 109 H 110 H (98-107) mmol/L Carbon Dioxide 21 L 25 (22-30) mmol/L BUN 5 L 5 L (7-17) mg/dL Creatinine 0.46 L 0.53 L (0.7-1.0) mg/dL Glucose 112 H 98 (65-110) mg/dL Calcium 8.5 8.3 L (8.4-10.2) mg/dL Intake and Output 07/30/24 07/30/24 07/30/24 07:59 15:59 23:59 Intake Total 340 Balance 340 Intake: IV 100 Magnesium Sulf 4 gm/[id number] 100 4 gm In 100 ml @ 25 mls/hr IVPB ONCE ONE Rx#:[id number] Oral 240 Other: # Unmeasured Voids 1 Patient Weight 07/30/24 23:59 Weight 121.7 kg
[2024-07-30] MEDS: OLANZapine 5 MG TABLET 10 MG PO (20:35)
[2024-07-30 20:48] LABS: Glucose Point of Care 124 mg/dl (65-105)
[2024-07-31] VITALS (24 sets, daily range): BP systolic 102–141; BP diastolic 63–82; PULSE 73–91; RESP 14–24; TEMP 36.7–37.1; O2SAT 90–97
[2024-07-31] MEDS: NITROGLYCERIN OINTMENT 1 INCH DOSE TRANSDERM (04:00)
[2024-07-31 04:26] LABS: Hematocrit 36.6 % (37.0-47.0); Hemoglobin 11.3 g/dL (12.0-15.0); Mean Corpuscular HGB Conc 30.9 g/dl (32-36); Mean Corpuscular Hemoglobin 27.9 pg (26-34); Mean Corpuscular Volume 90.4 fl (80-100); Platelet Count Result 270 k/mm3 (150-375); Red Blood Count 4.05 M/mm3 (4.2-5.4); Red Cell Distribution Width 13.6 % (11.5-14.5); White Blood Count 5.1 K/mm3 (4.5-10.0)
[2024-07-31 04:49] LABS: Anion Gap 7 mmol/L (4-12); Blood Urea Nitrogen 7 mg/dL (7-17); Calcium 8.7 mg/dL (8.4-10.2); Carbon Dioxide 25 mmol/L (22-30); Chloride 113 mmol/L (98-107); Estimated CRCL calculation 129 ml/min; Estimated Glomerular Filt Rate > 60; Glucose 117 mg/dL (65-110); Potassium 3.9 mmol/L (3.4-5.0); Sodium 145 mmol/L (137-145)
--- NOTE | 2024-07-31 07:44 | P.PNCA_ITS ---
Progress Note: A&P Assessment and Plan (1) Hypertension: Code(s): I10 - Essential (primary) hypertension Status: Acute Assessment and Plan: Stable. (2) Dyslipidemia: Code(s): E78.5 - Hyperlipidemia, unspecified Status: Acute Assessment and Plan: On Atorvastatin. (3) Chest pain: Qualifiers: Chest pain type: unspecified Qualified Code(s): R07.9 - Chest pain, unspecified Code(s): R07.9 - Chest pain, unspecified Status: Acute Assessment and Plan: She has been r/o for CO by serial troponin and EKG. 07/30/24 Lexiscan myoview stress test shows mild LCx infarct with superimposed apical and apical lateral ischemia. Consulted [facility] for LHC and plans for procedure today. If no significant stenosis, then may d/c home today. If gets stented then will d/c home tomorrow. In either case, have her f/u with me in 1 week. Subjective Date/time seen: 07/31/24 07:44 Interval history: No chest pain this morning but it is intermittent. No SOB. Exam Const: General: cooperative, healthy appearing and comfortable Orientation/consciousness: oriented to person, oriented to place and oriented to time Resp: Auscultation: clear to auscultation bilaterally, no crackles, no rales, no rhonchi and no wheezes Cardio: Rate: regular rate Rhythm: regular rhythm Heart sounds: no murmurs Peripheral pulses: dorsalis pedis present Neuro: General: oriented to person, oriented to place and oriented to time Extrem: Right lower extremity: no edema Left lower extremity: no edema Objective Data Vital Signs Vital Signs: Vital Signs - 24 hr 07/30/24 08:00 07/30/24 11:17 07/30/24 12:00 Temperature 98 F Pulse Rate 78 73 78 Respiratory Rate 18 Blood Pressure 117/65 Pulse Oximetry 96 07/30/24 14:00 07/30/24 15:39 07/30/24 16:00 Temperature 97.7 F Pulse Rate 79 74 74 Respiratory Rate 18 Blood Pressure 111/64 Pulse Oximetry 96 07/30/24 18:00 07/30/24 19:38 07/30/24 20:00 Temperature 97.9 F Pulse Rate 80 79 79 Respiratory Rate 16 Blood Pressure 126/62 Pulse Oximetry 94 07/30/24 22:00 07/30/24 23:53 07/31/24 00:00 Temperature 97.8 F Pulse Rate 82 82 77 Respiratory Rate 16 Blood Pressure 118/62 Pulse Oximetry 96 07/31/24 02:00 07/31/24 03:29 07/31/24 04:00 Temperature 98.8 F Pulse Rate 82 77 85 Respiratory Rate 15 Blood Pressure 125/64 Pulse Oximetry 94 07/31/24 06:00 Temperature Pulse Rate 86 Respiratory Rate Blood Pressure Pulse Oximetry Intake/Output Intake/Output: Intake & Output 07/28/24 07/29/24 07/30/24 07/31/24 23:59 23:59 23:59 23:59 Intake Total 1024 550 Balance 1024 550 Meds/Results Medications: Active Medications Generic Name Dose Route Start Last Admin Trade Name Freq PRN Reason Stop Dose Admin Acetaminophen 650 mg 07/29/24 22:51 Acetaminophen 325 Mg Tablet PO Q4H PRN Mild Pain (1-3) or Fever Albuterol 2 puff 07/29/24 22:53 Albuterol Sulfate (*Sp) Aerosol 1 Puff INHALATION Q4H PRN Wheezing Alprazolam 1 mg 07/29/24 22:53 Alprazolam (*Crx) 0.5 Mg Tablet PO BID PRN Anxiety Aspirin 81 mg 07/30/24 09:00 07/30/24 11:08 Aspirin 81 Mg Enteric Tablet PO 81 mg QAM DANAE Administration Atorvastatin Calcium 60 mg 07/30/24 09:00 07/30/24 11:08 Atorvastatin 20 Mg Tablet PO 60 mg DAILY DANAE Administration Bisacodyl 5 mg 07/29/24 22:51 Bisacodyl 5 Mg Tablet Ec PO QAM PRN Constipation Calcium Carbonate 200 mg 07/29/24 22:51 Calcium Carbonate (Tums) 500 Mg (200 Mg Elemental) PO Q6H PRN Indigestion Cyclobenzaprine HCl 10 mg 07/29/24 22:53 Cyclobenzaprine Hcl 10 Mg Tablet PO TID PRN muscle spasm Fluoxetine HCl 20 mg 07/30/24 09:00 07/30/24 17:09 Fluoxetine Hcl 20 Mg Capsule PO 20 mg BID DANAE Administration Lisinopril 40 mg 07/30/24 09:00 07/30/24 11:09 Lisinopril 20 Mg Tablet PO 40 mg DAILY DANAE Administration Morphine Sulfate 2 mg 07/29/24 22:53 Morphine Sulfate (*Crx) 2 Mg/Ml Inj IV PUSH Q2H PRN Chest Pain Multivitamins/Calcium 1 tablet 07/30/24 09:00 07/30/24 11:09 Therapeutic Multivitamins/Minerals Tab (*Bkc) PO 1 tablet DAILY DANAE Administration Naloxone HCl 0.1 mg 07/29/24 22:53 Naloxone Hcl 0.4 Mg/Ml Vial IV PUSH Q2M PRN Opiate Reversal Nitroglycerin 1 inch 07/30/24 02:30 07/31/24 04:00 Nitroglycerin Ointment 1 Inch Dose TRANSDERM 1 inch Q6H DANAE Administration Olanzapine 10 mg 07/29/24 23:05 07/30/24 20:35 Olanzapine 5 Mg Tablet PO 10 mg HS DANAE Administration Ondansetron HCl 4 mg 07/29/24 22:53 Ondansetron Inj 4 Mg/2 Ml Vial IV PUSH Q6H PRN Nausea And Vomiting Pantoprazole Sodium 40 mg 07/30/24 09:00 07/30/24 11:11 Pantoprazole 40 Mg Tablet PO 40 mg QAM DANAE Administration Perflutren Lipid Microsphere 0 ml 07/30/24 06:08 Perflutren Lipid Microspheres 1.5 Ml Vial Diluted To 10 Ml Total Volume IV PUSH 08/02/24 06:08 ONCE PRN adequate visualization Protocol Topiramate 50 mg 07/30/24 09:00 07/30/24 11:08 Topiramate 25 Mg Tablet PO 50 mg DAILY DANAE Administration Radiology Results: ITS Impressions Lexiscan Stress Test 07/30/24 10:57 IMPRESSION: 1. Moderate-sized moderate sized infarct involving primarily the circumflex coronary artery vascular distribution with superimposed small region of mild reversible ischemia at the apical and apical inferior segments. 2. Left ventricular ejection fraction measuring >70%. Labs Labs: Laboratory Results - last 24 hr 07/30/24 07/31/24 20:45 03:46 WBC 5.1 RBC 4.05 L Hgb 11.3 L Hct 36.6 L MCV 90.4 MCH 27.9 MCHC 30.9 L RDW 13.6 Plt Count 270 MPV 10.0 Sodium 145 Potassium 3.9 Chloride 113 H Carbon Dioxide 25 Anion Gap 7 BUN 7 Creatinine 0.53 L Estim Creat Clear Calc 129 Estimated GFR > 60 Glucose 117 H POC Capillary Glucose 124 H Calcium 8.7
--- NOTE | 2024-07-31 08:38 | WPDHPUPDATE1 ---
History and Physical Update Update Date/Time: 07/31/24 08:38 History and Physical has been reviewed, including an updated exam of the patient. There are NO changes in the patient's condition. Risks, benefits, and alternatives have been discussed and questions answered. Patient agrees to proceed with procedure.
--- NOTE | 2024-07-31 08:38 | WPDMODSED ---
Moderate Sedation Note-Pt Data Patient Data Allergies Allergy/AdvReac Type Severity Reaction Status Date / Time No Known Allergies Allergy Unknown Verified 07/29/24 22:44 Home Medications ?Medication ?Instructions ?Recorded ?Confirmed ?Type omeprazole magnesium 20 mg 20 mg PO DAILY 04/13/19 07/29/24 History tablet,delayed release (Prilosec OTC) atorvastatin 40 mg tablet 60 mg PO DAILY 06/01/21 07/29/24 History fluoxetine 40 mg capsule (Prozac) 20 mg PO BID 06/01/21 07/29/24 History multivitamin with minerals 1 tablet PO DAILY 12/01/21 07/29/24 History albuterol sulfate 90 mcg/actuation 2 puff inhalation Q4H PRN Wheezing 12/06/21 07/29/24 Rx aerosol inhaler #1 g lisinopril 40 mg tablet 40 mg PO DAILY 10/31/22 07/29/24 History olanzapine 10 mg tablet 10 mg PO HS 11/17/22 07/29/24 History metformin 500 mg tablet,extended 500 mg PO BID 09/28/23 07/29/24 History release 24 hr topiramate 50 mg tablet 50 mg PO DAILY 09/28/23 07/29/24 History cyclobenzaprine 10 mg tablet 10 mg PO TID PRN muscle spasm #14 03/20/24 07/29/24 Rx tabs alprazolam 1 mg tablet 1 mg PO BID PRN Anxiety 07/29/24 07/29/24 History Current Medications: Active Medications Acetaminophen (Acetaminophen 325 Mg Tablet) 650 mg PO Q4H PRN PRN Reason: Mild Pain (1-3) or Fever Albuterol (Albuterol Sulfate (*Sp) Aerosol 1 Puff) 2 puff INHALATION Q4H PRN PRN Reason: Wheezing Alprazolam (Alprazolam (*Crx) 0.5 Mg Tablet) 1 mg PO BID PRN PRN Reason: Anxiety Aspirin (Aspirin 81 Mg Enteric Tablet) 81 mg PO QAM [facility] Last Admin: 07/30/24 11:08 Dose: 81 mg Atorvastatin Calcium (Atorvastatin 20 Mg Tablet) 60 mg PO DAILY [facility] Last Admin: 07/30/24 11:08 Dose: 60 mg Bisacodyl (Bisacodyl 5 Mg Tablet Ec) 5 mg PO QAM PRN PRN Reason: Constipation Calcium Carbonate (Calcium Carbonate (Tums) 500 Mg (200 Mg Elemental)) 200 mg PO Q6H PRN PRN Reason: Indigestion Cyclobenzaprine HCl (Cyclobenzaprine Hcl 10 Mg Tablet) 10 mg PO TID PRN PRN Reason: muscle spasm Fluoxetine HCl (Fluoxetine Hcl 20 Mg Capsule) 20 mg PO BID [facility] Last Admin: 07/30/24 17:09 Dose: 20 mg Lisinopril (Lisinopril 20 Mg Tablet) 40 mg PO DAILY [facility] Last Admin: 07/30/24 11:09 Dose: 40 mg Morphine Sulfate (Morphine Sulfate (*Crx) 2 Mg/Ml Inj) 2 mg IV PUSH Q2H PRN PRN Reason: Chest Pain Multivitamins/Calcium (Therapeutic Multivitamins/Minerals Tab (*Bkc)) 1 tablet PO DAILY [facility] Last Admin: 07/30/24 11:09 Dose: 1 tablet Naloxone HCl (Naloxone Hcl 0.4 Mg/Ml Vial) 0.1 mg IV PUSH Q2M PRN PRN Reason: Opiate Reversal Nitroglycerin (Nitroglycerin Ointment 1 Inch Dose) 1 inch TRANSDERM Q6H [facility] Last Admin: 07/31/24 04:00 Dose: 1 inch Olanzapine (Olanzapine 5 Mg Tablet) 10 mg PO HS [facility] Last Admin: 07/30/24 20:35 Dose: 10 mg Ondansetron HCl (Ondansetron Inj 4 Mg/2 Ml Vial) 4 mg IV PUSH Q6H PRN PRN Reason: Nausea And Vomiting Pantoprazole Sodium (Pantoprazole 40 Mg Tablet) 40 mg PO QAM [facility] Last Admin: 07/30/24 11:11 Dose: 40 mg Perflutren Lipid Microsphere (Perflutren Lipid Microspheres 1.5 Ml Vial Diluted To 10 Ml Total Volume) 0 ml IV PUSH ONCE PRN; Protocol PRN Reason: adequate visualization Stop: 08/02/24 06:08 Topiramate (Topiramate 25 Mg Tablet) 50 mg PO DAILY [facility] Last Admin: 07/30/24 11:08 Dose: 50 mg Sedation/Anesthesia: No previous sedation/anesthesia problems (including family history). [facility] Past Medical History Medical History (Updated 07/30/24 @ 08:21 by Marcie Fam DO) Pulmonary embolism After cholecystectomy in 1991 Migraines Bipolar disorder Morbid obesity with BMI of 40.0-44.9, adult Necrotizing pneumonia Two thousand twenty-two Insect bite Hx MRSA infection Congestive heart failure Hypertension COPD (chronic obstructive pulmonary disease) Asthma Anxiety Depression Surgical History Surgical History (Updated 07/30/24 @ 08:00 by Marcie Fam DO) History of hysterectomy for benign disease (2007) History of left oophorectomy (~2007) History of incision and drainage Several areas to left forearm for MRSA 2002 History of cholecystectomy (~1991) History of tubal ligation Family History Family History (Updated 07/30/24 @ 08:01 by Marcie Fam DO) Father Valvular heart disease Mother , Mother at age 60. Diabetes mellitus Smoker Sibling Rheumatoid arthritis Has RA in her hands, sees post acute care registered nurse. Social History Social History (Updated 07/30/24 @ 07:49 by Marcie Fam DO) Social History: The patient is but lives with her boyfriend, of 26 years, and her daughter and granddaughter. She has a daughter and a son. Her oldest son She used to binge drink about once a month until she was unconscious but quit drinking alcohol around age 41. She used to smoke crack cocaine from about age 26 to age 41. She reports she started smoking in order to deal with her withdrawal from the other substances and she proceeded to smoke 1.5 packs of cigarettes per day for about 8 years but quit smoking at age 51. She [place] at [employer] [place] [facility]. Code status: Full code Surrogate decision maker: Her son Smoking packs per day: 1.5 Smoking cigarettes per day: 30.0 Years smoked: 8 Smoking pack-years: 12.00 Smoking status: Former smoker Tobacco type: cigarettes Second hand tobacco smoke exposure: Yes Alcohol intake: never Substance use: never Substance use type: does not use Do You Feel Safe in your Home?: Yes Lack of Transportation: No Lack of Food: Never True Current Housing: I Have Housing Concerned About Future Housing: No Difficulty Paying Gas/Electric Bills: No Difficulty Paying for Meds: No Currently Unemployed: No Education: High School Diploma/GED Difficulty w/ Childcare or Family Care: No Spiritual care concerns: No Mod Sed Physical Exam Physical Exam Pre Procedural Exam: Normal: Airway, Lungs, Heart Size, Heart Rate and Heart Rhythm Hours since solid foods: 12 Hours since liquid intake: 12 Mallampati Classification: class III Internal Medicine - PN: Obj Da Vital Signs Vital Signs: Vital Signs - 24 hr 07/30/24 11:17 07/30/24 12:00 07/30/24 14:00 Temperature 36.6 C Pulse Rate 73 78 79 Respiratory Rate 18 Blood Pressure 117/65 Pulse Oximetry 96 07/30/24 15:39 07/30/24 16:00 07/30/24 18:00 Temperature 36.5 C Pulse Rate 74 74 80 Respiratory Rate 18 Blood Pressure 111/64 Pulse Oximetry 96 07/30/24 19:38 07/30/24 20:00 07/30/24 22:00 Temperature 36.6 C Pulse Rate 79 79 82 Respiratory Rate 16 Blood Pressure 126/62 Pulse Oximetry 94 07/30/24 23:53 07/31/24 00:00 07/31/24 02:00 Temperature 36.6 C Pulse Rate 82 77 82 Respiratory Rate 16 Blood Pressure 118/62 Pulse Oximetry 96 07/31/24 03:29 07/31/24 04:00 07/31/24 06:00 Temperature 37.1 C Pulse Rate 77 85 86 Respiratory Rate 15 Blood Pressure 125/64 Pulse Oximetry 94 07/31/24 08:00 Temperature 36.7 C Pulse Rate 91 Respiratory Rate 20 Blood Pressure 129/71 Pulse Oximetry 94 Intake/Output Intake/Output: Intake & Output 07/28/24 07/29/24 07/30/24 07/31/24 23:59 23:59 23:59 23:59 Intake Total 1024 550 Balance 1024 550 Meds/Results Medications: Active Medications Generic Name Dose Route Start Last Admin Trade Name Freq PRN Reason Stop Dose Admin Acetaminophen 650 mg 07/29/24 22:51 Acetaminophen 325 Mg Tablet PO Q4H PRN Mild Pain (1-3) or Fever Albuterol 2 puff 07/29/24 22:53 Albuterol Sulfate (*Sp) Aerosol 1 Puff INHALATION Q4H PRN Wheezing Alprazolam 1 mg 07/29/24 22:53 Alprazolam (*Crx) 0.5 Mg Tablet PO BID PRN Anxiety Aspirin 81 mg 07/30/24 09:00 07/30/24 11:08 Aspirin 81 Mg Enteric Tablet PO 81 mg QAM DANAE Administration Atorvastatin Calcium 60 mg 07/30/24 09:00 07/30/24 11:08 Atorvastatin 20 Mg Tablet PO 60 mg DAILY DANAE Administration Bisacodyl 5 mg 07/29/24 22:51 Bisacodyl 5 Mg Tablet Ec PO QAM PRN Constipation Calcium Carbonate 200 mg 07/29/24 22:51 Calcium Carbonate (Tums) 500 Mg (200 Mg Elemental) PO Q6H PRN Indigestion Cyclobenzaprine HCl 10 mg 07/29/24 22:53 Cyclobenzaprine Hcl 10 Mg Tablet PO TID PRN muscle spasm Fluoxetine HCl 20 mg 07/30/24 09:00 07/30/24 17:09 Fluoxetine Hcl 20 Mg Capsule PO 20 mg BID DANAE Administration Lisinopril 40 mg 07/30/24 09:00 07/30/24 11:09 Lisinopril 20 Mg Tablet PO 40 mg DAILY DANAE Administration Morphine Sulfate 2 mg 07/29/24 22:53 Morphine Sulfate (*Crx) 2 Mg/Ml Inj IV PUSH Q2H PRN Chest Pain Multivitamins/Calcium 1 tablet 07/30/24 09:00 07/30/24 11:09 Therapeutic Multivitamins/Minerals Tab (*Bkc) PO 1 tablet DAILY DANAE Administration Naloxone HCl 0.1 mg 07/29/24 22:53 Naloxone Hcl 0.4 Mg/Ml Vial IV PUSH Q2M PRN Opiate Reversal Nitroglycerin 1 inch 07/30/24 02:30 07/31/24 04:00 Nitroglycerin Ointment 1 Inch Dose TRANSDERM 1 inch Q6H DANAE Administration Olanzapine 10 mg 07/29/24 23:05 07/30/24 20:35 Olanzapine 5 Mg Tablet PO 10 mg HS DANAE Administration Ondansetron HCl 4 mg 07/29/24 22:53 Ondansetron Inj 4 Mg/2 Ml Vial IV PUSH Q6H PRN Nausea And Vomiting Pantoprazole Sodium 40 mg 07/30/24 09:00 07/30/24 11:11 Pantoprazole 40 Mg Tablet PO 40 mg QAM DANAE Administration Perflutren Lipid Microsphere 0 ml 07/30/24 06:08 Perflutren Lipid Microspheres 1.5 Ml Vial Diluted To 10 Ml Total Volume IV PUSH 08/02/24 06:08 ONCE PRN adequate visualization Protocol Topiramate 50 mg 07/30/24 09:00 07/30/24 11:08 Topiramate 25 Mg Tablet PO 50 mg DAILY DANAE Administration Radiology Results: ITS Impressions Lexiscan Stress Test 07/30/24 10:57 IMPRESSION: 1. Moderate-sized moderate sized infarct involving primarily the circumflex coronary artery vascular distribution with superimposed small region of mild reversible ischemia at the apical and apical inferior segments. 2. Left ventricular ejection fraction measuring >70%. Labs 07/31/24 03:46 07/31/24 03:46 Labs: Laboratory Results - last 24 hr 07/30/24 07/31/24 20:45 03:46 WBC 5.1 RBC 4.05 L Hgb 11.3 L Hct 36.6 L MCV 90.4 MCH 27.9 MCHC 30.9 L RDW 13.6 Plt Count 270 MPV 10.0 Sodium 145 Potassium 3.9 Chloride 113 H Carbon Dioxide 25 Anion Gap 7 BUN 7 Creatinine 0.53 L Estim Creat Clear Calc 129 Estimated GFR > 60 Glucose 117 H POC Capillary Glucose 124 H Calcium 8.7 ASA Classification/Sedation ASA Classification/Sedation ASA Class: III Emergent: No Risks: Risks, benefits and alternatives explained and patient/family accepted plan for sedation. Patient re-evaluated immediately prior to sedation.
--- NOTE | 2024-07-31 09:15 | WPDCARDPROC ---
Cardiac Cath Procedure Note Date of procedure:: 07/31/24 Performing physician:: CATHETERIZATION LABORATORY REPORT Procedure Date: 07/31/2024 Referring Physician:Dr. Flores Anesthesia: Versed and Fentanyl were ordered and given in my presence at 0857, procedure ended at 0911. Supervision of nurse, Jorge Chang monitored moderate sedation with 2mg Versed and 150mcg Fentanyl was provided for 14 minutes. Pre-op Diagnosis: Abnormal nuclear stress test Post-op Diagnosis: Abnormal nuclear stress test Procedure(s): Left heart catheterization with coronary angiography Ultrasound-guided arterial access Access Site: Right radial artery Brief History and Clinical Indications: 51-year-old woman with hypertension, diabetes, hyperlipidemia presented with chest pain found to have an abnormal nuclear stress test for which cardiac catheterization was recommended with possible PCI today. All risks, benefits and alternatives to left heart catheterization with or without percutaneous coronary intervention was discussed at length with the patient. Risk of complications including but not limited to bleeding, infection, arrhythmia, stroke, worsening kidney function, blood loss, groin hematoma, limb loss, emergency coronary artery bypass grafting, and even were discussed with the patient and all questions were answered. The patient understood and wished to proceed. Time out called, patient name, date of , medical record number, allergies, procedure performed, identify Certified Wellness Program Manager, patient and staff member concurred with accurate data, procedure carried on. Findings: LEFT HEART CATHETERIZATION FINDINGS: 1. Left main: The left main coronary artery is widely patent without any significant obstructive disease. 2. Left anterior descending: The LAD and the diagonal branches are angiographically free of disease. 3. Left circumflex: The left circumflex artery and the main marginal branches are angiographically free of disease. 4. Right coronary artery: The RCA has mild luminal irregularities without any significant obstructive angiographic disease. The RCA is the dominant vessel. 5. Left ventricle: A. End-diastolic pressure 20 mmHg. B. LV gram deferred. C. No significant gradient across aortic valve on catheter pullback. 6. Opening AO pressure 111/82 and closing AO pressure 118/64 Description of Procedure: Informed consent signed and placed in the chart. Patient transferred to greenhouse laborer room. Prepped and draped in usual sterile fashion. 2% lidocaine injected subcutaneously in right wrist area. 22-gauge venipuncture catheter used to access the right radial artery with the Seldinger technique under ultrasound guidance. 6-FR slender sheath placed in right radial artery. Nitroglycerin 200mcg, Verapamil 2.5mg, and Heparin 5000U was given intraarterial through the sheath. J wire advanced under fluoroscopy 5F Ultra diagnostic catheter engaged Left Main Coronary Artery. 5F Ultra diagnostic catheter engaged Right Coronary Artery Multiple orthogonal angiogram obtained and reviewed 5F Pigtail catheter crossed aortic valve to obtain LVEDP, LV angiogram deferred. Hemostasis was achieved by application of TR band. Assessment: Minimal CAD Post Operative Condition: Stable No significant blood loss Disposition: Floor Plan: The patient will be monitored in the recovery area. Continue aspirin 81 mg p.o. daily and aggressive risk factor modification. The above findings were discussed with the referring physician. Josh Alicia Interventional Cardiology
[2024-07-31] MEDS: SODIUM CHLORIDE 0.9% IV 1,000 ML 125 ML IV CONT (11:00)
--- NOTE | 2024-07-31 12:42 | P.DS_ITS ---
DS: Admitting Diagnosis Discharge Date 07/31/24 Admitting Diagnosis Chest pain DS: Discharge Diagnosis Discharge Diagnosis (1) Chest pain: Qualifiers: Chest pain type: unspecified Qualified Code(s): R07.9 - Chest pain, unspecified Code(s): R07.9 - Chest pain, unspecified Status: Acute (2) Hypokalemia: Code(s): E87.6 - Hypokalemia Status: Acute (3) Hypomagnesemia: Code(s): E83.42 - Hypomagnesemia Status: Acute (4) GERD (gastroesophageal reflux disease): Qualifiers: Esophagitis presence: esophagitis presence not specified Qualified Code(s): K21.9 - Gastro-esophageal reflux disease without esophagitis Code(s): K21.9 - Gastro-esophageal reflux disease without esophagitis Status: Acute Plan Chest pain Troponin neg Stress test abnormal cardiac cath minimal CAD Continue with ASA, Statin, Coreg, lisinopril HTN LIsinopril HLD statin Hypokalemia replete as needed GERD PPI depression/bipolar HELP DESK SPECIALIST meds DS: Summary Hospital Course Hospital Course: per HPI: 59-year-old female with a past medical history of essential hypertension, type 2 diabetes mellitus, peripheral neuropathy, diastolic congestive heart failure, COPD/asthma, bipolar disorder, 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 The patient reports that she was sitting down to watch TV after she got home from work when she began having pain in her left jaw that radiated down into her neck and into the left side of her chest as well as her left arm. It was accompanied by some nausea and some tingling of her left extremity. Symptoms started approximately 30 minutes prior to arrival to the ER. She reports that the pain at in her arm and jaw have resolved but she is still having some left-sided chest pain. Her pain was relieved after nitroglycerin administration at the outside ER. She did have a recurrence for pain and had an additional 2 doses of nitroglycerin with relief in her symptoms. She was subsequently placed on nitroglycerin paste. Her cardiac enzymes at the outside hospital were negative. Her EKG demonstrated sinus rhythm with interventricular conduction delay and borderline T-wave abnormality in anterior leads as well as baseline artifact. She did receive full-dose aspirin at the outside ER. Reports that the pain at other as an 8/10 intensity has worst. She has also noticed some increased fatigue for the last week. She denies any pleuritic pain. She denies any dyspnea on exertion. She has not had any associated orthopnea or paroxysmal nocturnal dyspnea. She does snore and has daytime fatigue. She has never had a sleep study. She reports a history of GERD but states that this pain is different than her heartburn pain The patient had echocardiogram in 2022 which demonstrated normal left ventricular systolic function and grade 2 diastolic dysfunction. She had a treadmill stress test January 2023 which demonstrated negative Messi exercise stress test for ischemic changes, poor functional capacity 07/31/24 Patient was seen and examined at bedside. she is feeling better. her chest pain improved. denies any SOB, abd pain, N/V. Stress test abnormal yesterday. cardiology team onboard, underwent cardiac cath today which showed minimal CAD. LEFT HEART CATHETERIZATION FINDINGS: 1. Left main: The left main coronary artery is widely patent without any significant obstructive disease. 2. Left anterior descending: The LAD and the diagonal branches are angiographically free of disease. 3. Left circumflex: The left circumflex artery and the main marginal branches are angiographically free of disease. 4. Right coronary artery: The RCA has mild luminal irregularities without any significant obstructive angiographic disease. The RCA is the dominant vessel. Status at Discharge Overall status at discharge: patient is back to baseline Time Spent with Patient Time attestation: Total time spent providing and/or coordinating discharge services: Time spent: Greater than 30 minutes Exam Narrative: Weight 121.7 BMI 43.3 Const: Other: Morbidly obese, appears older than stated age HENMT: Other: Mucous membranes are moist, no oral pharyngeal erythema, crowded posterior orop harynx, edentulous in upper and lower jaw Eyes: Other: Pupils are equal and reactive, no scleral icterus, no conjunctival pallor Neck: Other: Large neck circumference, no JVD Resp: Other: Clear to auscultation bilaterally, no increased work of breathing Cardio: Other: Regular rate, regular rhythm, 2+ bilateral radial and pedal pulses, no JVD GI: Other: Soft, nontender, nondistended, positive bowel sounds Skin: Other: No jaundice, no pallor Neuro: Other: Alert oriented, speech is clear, no facial asymmetry Extrem: Other: No clubbing, cyanosis or edema Psych: Other: Appropriate mood and affect, pleasant and cooperative, judgment and insight intact DS: Data Data Completed and Pending Labs on day of discharge: Labs from last 24 hours 07/31/24 07/30/24 03:46 20:45 WBC 5.1 RBC 4.05 L Hgb 11.3 L Hct 36.6 L MCV 90.4 MCH 27.9 MCHC 30.9 L RDW 13.6 Plt Count 270 MPV 10.0 Sodium 145 Potassium 3.9 Chloride 113 H Carbon Dioxide 25 Anion Gap 7 BUN 7 Creatinine 0.53 L Estim Creat Clear Calc 129 Estimated GFR > 60 Glucose 117 H POC Capillary Glucose 124 H Calcium 8.7 Discharge Plan Discharge Attending physician on discharge: Micheal Galdamez Consulting providers: Jeffery Flores; Josh Alicia Discharging Clinician: Micheal Galdamez Anticipated Discharge Date/Time: 07/31/24 12:44 Patient Disposition: Home Activity: as tolerated Diet: heart healthy Discharge Instructions: follow with PCP in one week. Check your blood pressure and heart rate regularly and report to the PCP follow with cardiology clinic as outpatient continue Aspirin, atorvastatin, lisinopril Patient Instructions: Antibiotic Form, Enoxaparin (By injection), Heart Failure (GEN), Chest Pain (GEN), Hypokalemia (GEN) Patient Language: Kinyarwanda Stand Alone Forms: General Discharge Information Follow-up/Referrals: Jeffery Flores DO [Physician] - Call for Appointment Devyn,ROBERT Moctezuma [Primary Care Provider] - 1 Week Discharge Medications: New aspirin 81 mg Tablet,Delayed Release (Dr/Ec) 81 mg PO QAM Qty: 30 0RF Continued omeprazole magnesium [Prilosec OTC] 20 mg Tablet,Delayed Release (Dr/Ec) 20 mg PO DAILY lisinopril 40 mg tablet 40 mg PO DAILY olanzapine 10 mg tablet 10 mg PO HS fluoxetine [Prozac] 40 mg capsule 20 mg PO BID atorvastatin 40 mg tablet 60 mg PO DAILY metformin 500 mg tablet extended release 24 hr 500 mg PO BID topiramate 50 mg tablet 50 mg PO DAILY cyclobenzaprine 10 mg tablet 10 mg PO TID PRN (Reason: muscle spasm) Qty: 14 0RF multivitamin with minerals Tablet 1 tablet PO DAILY albuterol sulfate 90 mcg/actuation HFA aerosol inhaler 2 puff INHALATION Q4H PRN (Reason: Wheezing) Qty: 1 0RF alprazolam 1 mg tablet 1 mg PO BID PRN (Reason: Anxiety) Date of admission: 07/29/24 22:24 Primary Care Provider: Devyn,Rhianna Admitting Provider: Marcie Fam Attending physician on admission: Micheal aGldamez Condition: Improved Quality VTE Prophylaxis VTE prophylaxis: pharmacologic ordered (One dose 1 milligram/kilogram Lovenox.)
[2024-07-31] MEDS: ASPIRIN 81 MG ENTERIC TABLET PO (14:26)
[2024-07-31] MEDS: ATORVASTATIN 20 MG TABLET 60 MG PO (14:26)
[2024-07-31] MEDS: lisinopriL 20 MG TABLET 40 MG PO (14:26)
[2024-07-31] MEDS: THERAPEUTIC MULTIVITAMINS/MINERALS TAB (*BKC) 1 TABLET PO (14:27)
[2024-07-31] MEDS: TOPIRAMATE 25 MG TABLET 50 MG PO (14:27)
[2024-07-31] MEDS: FLUoxetine HCL 20 MG CAPSULE PO (14:27)
[2024-07-31] MEDS: PANTOPRAZOLE 40 MG TABLET PO (14:27)
== END 2024-07-31 15:30 | disposition home or self-care (01) ==
PROVIDERS: Internal Medicine; Admitting Provider Internal Medicine; PCP Physician Assistant; Visit Provider Internal Medicine
PROC: 4A023N7 Measurement of Cardiac Sampling and Pressure, Left Heart, Percutaneous Approach (ICD-10-PCS; CPT 93452; principal; 2024-07-31 08:30)
DX: R07.9 Chest pain, unspecified (principal); E87.6 Hypokalemia; E83.42 Hypomagnesemia; K21.9 Gastro-esophageal reflux disease without esophagitis; I25.10 Atherosclerotic heart disease of native coronary artery without angina pectoris; R94.39 Abnormal result of other cardiovascular function study; R06.09 Other forms of dyspnea; E66.01 Morbid (severe) obesity due to excess calories; Z68.41 Body mass index [BMI] 40.0-44.9, adult; E11.42 Type 2 diabetes mellitus with diabetic polyneuropathy; J44.9 Chronic obstructive pulmonary disease, unspecified; I11.0 Hypertensive heart disease with heart failure; I50.32 Chronic diastolic (congestive) heart failure; E78.5 Hyperlipidemia, unspecified; G43.909 Migraine, unspecified, not intractable, without status migrainosus; F31.9 Bipolar disorder, unspecified; F41.9 Anxiety disorder, unspecified; F14.21 Cocaine dependence, in remission; Z79.51 Long term (current) use of inhaled steroids; Z79.84 Long term (current) use of oral hypoglycemic drugs; Z79.899 Other long term (current) drug therapy; Z82.49 Family history of ischemic heart disease and other diseases of the circulatory system; Z86.711 Personal history of pulmonary embolism; Z86.14 Personal history of Methicillin resistant Staphylococcus aureus infection; Z87.01 Personal history of pneumonia (recurrent); Z87.891 Personal history of nicotine dependence; Z90.710 Acquired absence of both cervix and uterus; Z90.721 Acquired absence of ovaries, unilateral
CPT/HCPCS: 36415; 78452; 80048; 82948; 83735; 84100; 84443; 84484; 85027; 85610; 85730; 93017; 93306; 93458; 96365; 96366; 96372; A9270; A9502; C1769; C1887; C1894; G0378; G0379; J1644; J1650; J2003; J2250; J2305; J2785; J3010; J3475; J7030; J7040

== ENCOUNTER 2024-11-01 13:34 | Emergency (ER) | payer OTHER, SELFPAY ==
--- NOTE | ~2024-11-01 | XR_ITS ---
EXAMINATION: XR hip LT 2V w AP pelvis, 11/01/2024 13:50 CDT HISTORY: Fall, Lt. hip pain COMPARISON: No comparisons available. Findings: No acute fracture or malalignment. No significant degenerative changes. Soft tissues unremarkable. Impression: No acute fracture or malalignment. Reviewed, dictated and finalized at location P. Impression: No acute fracture or malalignment.
[2024-11-01 13:35] VITALS: BP 131/70; PULSE 77; RESP 18; TEMP 36.7; O2SAT 95
--- OUTSIDE RECORDS SUMMARY | 2024-11-01 13:36 | XMS_ITS | Patient Health Record ---
Author Organization [facility] As [employer] Address [address] [facility] [address] [place] [address] Care Team Providers Care Quarter Backer Name Role Phone Arsalan Carreno Unavailable [phone] Reason For Referral No Information Plan Of Treatment No Information
--- OUTSIDE RECORDS SUMMARY | 2024-11-01 13:36 | XMS_ITS | Clinical Summary ---
Author Organization [facility] [address] Address [address] [place] [address] Phone Care Team Providers Care Profiler Hand Name Role Phone ShepardRhianna oleary Mandie RODRIGO Primary Care Provider [phone] Allergies No known active allergies Medications No known medications Encounters Date Type Department Care Team Description 08/07/2024 Orders Only [facility] Medical Group Cardiology [address] [place] [address] Josh Alicia MD 08/06/2024 Orders Only [facility] Medical [facility] Card[facility] [address] [place] [address] Josh Alicia MD from Last 3 Months Social History Tobacco Use Types Packs/Day Years Used Date Smoking Tobacco: Former Smokeless Tobacco: Former Comments Unknown Sex and Gender Information Value Date Recorded Sex Assigned at Not on file Legal Sex Female 12:31 PM CHOIR SINGER Gender Identity Not on file Sexual Orientation Not on file Obstetrics History Last Filed Vital Signs Vital Sign Reading Time Taken Comments Blood Pressure - - Pulse - - Temperature - - Respiratory Rate - - Oxygen Saturation - - Inhaled Oxygen Concentration - - Weight 93 kg (205 lb) 05/20/2018 9:21 AM CDT Height 167.6 cm (5' 6) 05/20/2018 9:21 AM CDT Body Mass Index 33.09 05/20/2018 9:21 AM CDT Plan of Treatment Not on file Insurance Care Teams Profiler Hand Relationship Specialty Start Date End Date Rhianna Shepard PA [address] [place] [address] PCP - General Emergency Medicine 04/29/18
--- OUTSIDE RECORDS SUMMARY | 2024-11-01 13:36 | XMS_ITS | Clinical Summary ---
Author Organization [facility] Address [address] [place] [address] Care Team Providers Care Police Liaison Name Role Phone Rhianna Shepard Primary Care Provider [phone] Allergies Active Allergy Reactions Criticality Noted Date Comments Atropine Dizziness 06/09/2024 Cyclobenzaprine Shortness of Breath High 06/09/2024 Medications albuterol sulfate HFA 108 (90 Base) MCG/ACT inhaler Inhale 2 puffs into the lungs every 6 (six) hours as needed for Wheezing. Active ALPRAZolam (XANAX) 1 MG tablet Take 1 tablet (1 mg total) by mouth 2 (two) times daily. Active atorvastatin (LIPITOR) 40 MG tablet Take 1 tablet (40 mg total) by mouth daily. 5 Active atorvastatin (LIPITOR) 20 MG tablet Take 1 tablet (20 mg total) by mouth daily. 4 Active dicyclomine (BENTYL) 10 MG capsule Take 1 capsule (10 mg total) by mouth 3 (three) times daily. 5 Active lisinopril (PRINIVIL) 40 MG tablet Take 1 tablet (40 mg total) by mouth daily. 5 Active OLANZapine (ZYPREXA) 7.5 MG tablet Take 1 tablet (7.5 mg total) by mouth nightly. Active omeprazole EC (PRILOSEC OTC) 20 MG tablet Take 1 tablet (20 mg total) by mouth daily. 8 Active sulfamethoxazol e-trimethoprim (BACTRIM DS) 800-160 MG tablet Take 1 tablet by mouth 2 (two) times daily. 5 Active psyllium (METAMUCIL 4 IN 1 FIBER) 51.7 % packet Take 1 packet by mouth 2 (two) times daily. Active ondansetron (ZOFRAN) 4 MG tablet Take 1 tablet (4 mg total) by mouth every 8 (eight) hours as needed for Nausea. Active Vitamin D3 125 mcg Tab Take 1 tablet (125 mcg total) by mouth daily. Active naproxen (NAPROSYN) 500 MG tablet Take 1 tablet (500 mg total) by mouth 2 (two) times daily as needed. Active levocetirizine (XYZAL) 5 MG tablet Take 1 tablet (5 mg total) by mouth. Active fluconazole (DIFLUCAN) 150 MG tablet Take 1 tablet (150 mg total) by mouth once. Active metFORMIN (GLUCOPHAGE) 500 MG tablet Take 1 tablet (500 mg total) by mouth 2 (two) times daily with meals. Active nystatin (MYCOSTATIN) powder Apply topically 2 (two) times daily. Active topiramate (TOPAMAX) 50 MG Tab Take 1 tablet (50 mg total) by mouth 2 (two) times daily. Active FLUoxetine (PROZAC) 20 MG capsule Take 1 capsule (20 mg total) by mouth daily. Active tiotropium (SPIRIVA RESPIMAT) 2.5 MCG/ACT inhaler (SPIRIVA RESPIMAT) Inhale 2 puffs into the lungs daily. Please provide assembled. Active Social History Tobacco Use Types Packs/Day Years Used Date Smoking Tobacco: Former Cigarettes Smokeless Tobacco: Never Tobacco Cessation:Counseling Given: Not Answered Comments No Sex and Gender Information Value Date Recorded Sex Assigned at Female 06/09/2024 3:47 PM CDT Legal Sex Female 4:47 PM CDT Gender Identity Not on file Sexual Orientation Not on file Last Filed Vital Signs Vital Sign Reading Time Taken Comments Blood Pressure 113/59 06/09/2024 5:30 PM CDT Pulse 90 06/09/2024 5:30 PM CDT Temperature 37.3 C (99.2 F) 06/09/2024 3:42 PM CDT Respiratory Rate 20 06/09/2024 3:42 PM CDT Oxygen Saturation 96% 06/09/2024 5:30 PM CDT Inhaled Oxygen Concentration - - Weight 121.7 kg (268 lb 6.4 oz) 06/09/2024 3:42 PM CDT Height 167.6 cm (5' 6) 06/09/2024 3:42 PM CDT Body Mass Index 43.32 06/09/2024 3:42 PM CDT Plan of Treatment Health Maintenance Due Date Last Done Comments Colorectal Cancer Screening Colonoscopy (10 Years) 1966 Annual Physical 1969 Hepatitis C 1984 DTaP, Tdap and Td Vaccines ( 1 - Tdap) 1985 Hepatitis B Vaccines (1 of 3 - 19+ 3-dose series) 1985 Pneumococcal Vaccine: 50+ Ye ars (1 of 1 - PCV) 2016 Zoster Vaccines (1 of 2) 2016 Mammogram Screening 11/17/2021 11/18/2019 COVID-19 Vaccine (1 - 2023-2 5 season) 2024 Meningococcal B Vaccine Aged Out No l [...] Most Recently Relevant to Health Maintenance Insurance [employer] Care Teams Police Liaison Relationship Specialty Start Date End Date Rhianna Shepard PA [address] [place] [address] PCP - General PHYSICIAN DAYCARE WORKER 11/18/19
--- OUTSIDE RECORDS SUMMARY | 2024-11-01 13:36 | XMS_ITS | Encounter Summary ---
Author Organization [facility] Address [facility] [place] [address] Care Team Providers Care Documentum Consultant Name Role Phone Rhianna Shepard Primary Care Provider [phone] Encounter Details Date Type Department Care Team (Late st Contact Info) Description 07/13/2018 Abstract [facility] CONVERSION [address] [place] [address] , Generic Conversion, Social History Tobacco Use [...] on filedocumented in this encounter Care Teams Documentum Consultant Relationship Specialty Start Date End Date Rhianna Shepard PA [address] [place] [address] PCP - General PHYSICIAN GOLF STUD RIVETER 11/18/19 documented as of this encounter
--- NOTE | 2024-11-01 13:55 | PC.NURSE ---
Patient taken to xray
[2024-11-01] MEDS: KETOROLAC (*BKC) 60 MG/2 ML VIAL IM (14:04)
--- OUTSIDE RECORDS SUMMARY | 2024-11-01 14:06 | XMS_ITS | Clinical Summary ---
Author Organization [facility] [address] Address [address] [place] [address] Phone Care Team Providers Care Testing Tech Name Role Phone ShepardRhianna oleary Mandie RODRIGO Primary Care Provider [phone] Allergies No known active allergies Medications No known medications Encounters Date Type Department Care Team Description 08/07/[address] [facility] Medical Group Cardiology [address] [place] [address] Josh Alicia MD 08/06/[address] [facility] Medical [facility] Cardiology [address] [place] [address] Josh Alicia MD from Last 3 Months Social History Tobacco Use Types Packs/Day Years Used Date Smoking Tobacco: Former Smokeless Tobacco: Former Comments Unknown Sex and Gender Information Value Date Recorded Sex Assigned at Not on file Legal Sex Female 12:31 PM DRY CHAIN WORKER Gender Identity Not on file Sexual Orientation [...] Treatment Not on file Insurance Care Teams Testing Tech Relationship Specialty Start Date End Date Rhianna Shepard PA [address] [place] [address] PCP - General Emergency Medicine 04/29/18
--- OUTSIDE RECORDS SUMMARY | 2024-11-01 14:06 | XMS_ITS | Encounter Summary ---
Author Organization [facility] Address [facility] [place] [address] Care Team Providers Care Welder Tack Name Role Phone Rhianna Shepard Primary Care Provider Encounter Details Date Type Department Care Team (Late st Contact Info) Description 07/13/2018 Abstract [facility] [address] [place] [address] , Generic Conversion, Social History Tobacco Use [...] on filedocumented in this encounter Care Teams Welder Tack Relationship Specialty Start Date End Date Rhianna Shepard PA [address] [place] [address] PCP - General PHYSICIAN KIER HAND 11/18/19 documented as of this encounter
--- OUTSIDE RECORDS SUMMARY | 2024-11-01 14:06 | XMS_ITS | Clinical Summary ---
Author Organization [facility] Address [address] [place] [address] Care Team Providers Care Title Inspector Name Role Phone Rhianna Shepard Primary Care Provider [phone] Allergies Active Allergy Reactions Criticality Noted Date [...] Most Recently Relevant to Health Maintenance Insurance [employer] Care Teams Title Inspector Relationship Specialty Start Date End Date Rhianna Shepard PA [address] [place] [address] PCP - General PHYSICIAN ORAL AND MAXILLOFACIAL SURGEON 11/18/19
--- NOTE | 2024-11-01 14:10 | ED.LOWEXIN ---
HPI - Extremity Injury (Lower) General Chief Complaint: Extremity Injury, Lower Stated Complaint: left hip pain Time Seen by Provider: 11/01/24 13:50 Source: patient and family Mode of arrival: ambulatory Limitations: no limitations History of Present Illness HPI Narrative: this is a 59-year-old female with pain in her left hip after she inadvertently while exiting a door way trip and did a partial splits causing pain in her left hip area with some no weakness in her left leg no back pain no paresthesias no neurological deficits no saddle paresthesias. complaint: hip injury Onset (ago): day(s) Injury: Left: hip ( tenderness lateral aspect of her left hip) Type of Injury: hyperextension Place: home Severity: moderate Severity scale (1-10): 8 Relieving factors: immobilization Exacerbating factors: movement Context: fall Related Data Home Medications ?Medication ?Instructions ?Recorded ?Confirmed ?Last Taken ?Type omeprazole magnesium 20 mg 20 mg PO DAILY 04/13/19 07/29/24 07/29/24 History tablet,delayed release (Prilosec OTC) atorvastatin 40 mg tablet 60 mg PO DAILY 06/01/21 07/29/24 07/29/24 History fluoxetine 40 mg capsule (Prozac) 20 mg PO BID 06/01/21 07/29/24 07/29/24 History multivitamin with minerals 1 tablet PO DAILY 12/01/21 07/29/24 07/29/24 History lisinopril 40 mg tablet 40 mg PO DAILY 10/31/22 07/29/24 07/29/24 History olanzapine 10 mg tablet 10 mg PO HS 11/17/22 07/29/24 07/28/24 History metformin 500 mg tablet,extended 500 mg PO BID 09/28/23 07/29/24 07/29/24 History release 24 hr topiramate 50 mg tablet 50 mg PO DAILY 09/28/23 07/29/24 07/29/24 History alprazolam 1 mg tablet 1 mg PO BID PRN Anxiety 07/29/24 07/29/24 07/29/24 History atorvastatin 20 mg tablet 20 mg PO DAILY 08/12/24 Unknown History Allergies Allergy/AdvReac Type Severity Reaction Status Date / Time No Known Allergies Allergy Unknown Verified 11/01/24 13:38 Review of Systems Review of Systems: All systems reviewed & are unremarkable except as noted in HPI and below PMFSH Past Medical History Medical History Pulmonary embolism After cholecystectomy in 1991 Migraines Bipolar disorder Morbid obesity with BMI of 40.0-44.9, adult Necrotizing pneumonia Two thousand twenty-two Insect bite Hx MRSA infection Congestive heart failure Hypertension COPD (chronic obstructive pulmonary disease) Asthma Anxiety Depression Surgical History Surgical History History of hysterectomy for benign disease (2007) History of left oophorectomy (~2007) History of incision and drainage Several areas to left forearm for MRSA 2002 History of cholecystectomy (~1991) History of tubal ligation Family History Family History Father Valvular heart disease Mother , Mother at age 60. Diabetes mellitus Smoker Sibling Rheumatoid arthritis Has RA in her hands, sees communications lead. Social History Social History Social History: The patient is but lives with her boyfriend, of 26 years, and her daughter and granddaughter. She has a daughter and a son. Her oldest son She used to binge drink about once a month until she was unconscious but quit drinking alcohol around age 41. She used to smoke crack cocaine from about age 26 to age 41. She reports she started smoking in order to deal with her withdrawal from the other substances and she proceeded to smoke 1.5 packs of cigarettes per day for about 8 years but quit smoking at age 51. She works at [employer] in the [employer]. Code status: Full code Surrogate decision maker: Her son Smoking packs per day: 1.5 Smoking cigarettes per day: 30.0 Years smoked: 8 Smoking pack-years: 12.00 Smoking status: Former smoker Tobacco type: cigarettes Second hand tobacco smoke exposure: Yes Alcohol intake: never Substance use: never Substance use type: does not use Do You Feel Safe in your Home?: Yes Lack of Transportation: No Lack of Food: Never True Current Housing: I Have Housing Concerned About Future Housing: No Difficulty Paying Gas/Electric Bills: No Difficulty Paying for Meds: No Currently Unemployed: No Education: High School Diploma/GED Difficulty w/ Childcare or Family Care: No Spiritual care concerns: No Exam Const: General: healthy appearing and no acute distress Nutritional Appearance: well nourished and obese Orientation/consciousness: patient oriented x3 Limitations: no limitations Resp: Effort & Inspection: normal respiratory effort Auscultation: clear to auscultation bilaterally Cardio: Rate: regular rate Rhythm: regular rhythm GI: GI Palp: Yes Soft to palpation Auscultation: normal bowel sounds Back/Spine/Pelvis: Back: no CVA tenderness Neuro: General: patient oriented x3, moves all extremities, no meningeal signs and no focal motor deficits Extrem: Other: Medial and lateral pain in her left hip with movement and palpation Course Course Emergency Course: patient received 60mg IM Toradol after reassessment pain level has mildly improved, x-ray shows no acute fractures. Vital Signs Vital signs: Vital Signs Temperature 36.7 C 11/01/24 13:35 Pulse Rate 77 11/01/24 13:35 Respiratory Rate 18 11/01/24 13:35 Blood Pressure 131/70 11/01/24 13:35 Pulse Oximetry 95 11/01/24 13:35 Oxygen Delivery Room Air 11/01/24 13:35 Temperature 36.7 C 11/01/24 14:24 Pulse Rate 77 11/01/24 14:24 Respiratory Rate 18 11/01/24 14:24 Blood Pressure 131/70 11/01/24 14:24 Pulse Oximetry 95 11/01/24 14:24 Oxygen Delivery Room Air 11/01/24 14:24 Critical Care Time Critical Care Time Critical Care Time: No Discharge Plan Discharge Clinical Impression: Muscle strain of left hip Qualifiers: Encounter type: initial encounter Qualified Code(s): S76.012A - Strain of muscle, fascia and tendon of left hip, initial encounter Patient Disposition: Home Condition: Stable Instructions: Antibiotic Form, Muscle Strain (ED) Additional Instructions: advised patient to take medication as prescribed and to follow with primary if symptoms persist or worsen. Patient Language: Setswana Prescriptions: New naproxen 500 mg tablet 500 mg PO BID Qty: 14 0RF Rx Instructions: take with meals No Action omeprazole magnesium [Prilosec OTC] 20 mg Tablet,Delayed Release (Dr/Ec) 20 mg PO DAILY lisinopril 40 mg tablet 40 mg PO DAILY olanzapine 10 mg tablet 10 mg PO HS fluoxetine [Prozac] 40 mg capsule 20 mg PO BID atorvastatin 40 mg tablet 60 mg PO DAILY metformin 500 mg tablet extended release 24 hr 500 mg PO BID topiramate 50 mg tablet 50 mg PO DAILY cyclobenzaprine 10 mg tablet 10 mg PO TID PRN (Reason: muscle spasm) Qty: 14 0RF atorvastatin 20 mg tablet 20 mg PO DAILY multivitamin with minerals Tablet 1 tablet PO DAILY albuterol sulfate 90 mcg/actuation HFA aerosol inhaler 2 puff INHALATION Q4H PRN (Reason: Wheezing) Qty: 1 0RF alprazolam 1 mg tablet 1 mg PO BID PRN (Reason: Anxiety) aspirin 81 mg Tablet,Delayed Release (Dr/Ec) 81 mg PO QAM Qty: 30 0RF Follow-up/Referrals: UNKNOWN,DOCTOR [Non-Staff] Time of Disposition: 14:19
[2024-11-01 14:24] VITALS: BP 131/70; PULSE 77; RESP 18; TEMP 36.7; O2SAT 95
== END 2024-11-01 14:24 | disposition home or self-care (01) ==
PROVIDERS: Emergency Provider Emergency Medicine; PCP Physician Assistant
DX: S76.012A Strain of muscle, fascia and tendon of left hip, initial encounter (principal); I11.0 Hypertensive heart disease with heart failure; I50.9 Heart failure, unspecified; J44.9 Chronic obstructive pulmonary disease, unspecified; Z87.891 Personal history of nicotine dependence; W01.0XXA Fall on same level from slipping, tripping and stumbling without subsequent striking against object, initial encounter
CPT/HCPCS: 73502; 96372; 99283; J1885

== ENCOUNTER 2024-11-04 19:39 | Emergency (ER) | payer OTHER, SELFPAY ==
--- NOTE | ~2024-11-04 | CT_ITS ---
EXAMINATION: CT hip LT wo con COMPARISON: None HISTORY: left hip pain, swelling TECHNIQUE: Axial images were obtained without IV contrast. Sagittal, coronal reconstruction images were obtained from the axial views. CT scan performed using dose optimization techniques including the following automated exposure control; adjustment of mA and/or kV; use of iterative reconstruction technique. Automatic exposure control was used to reduce radiation dose. Permanent radiation dose record is archived to PACS. FINDINGS: There is a remote appearing fracture of the posterior inferior pubic ramus. Scattered subcentimeter probable sclerotic bone islands. No significant degenerative changes. No avascular necrosis, fracture or dislocation There is no joint effusion. No intramuscular hemorrhage or subcutaneous fluid collection. The intrapelvic soft tissues are unremarkable. IMPRESSION: No acute fracture. Reviewed, dictated and finalized at location P. IMPRESSION: No acute fracture.
--- NOTE | ~2024-11-04 | XR_ITS ---
Examination: XR hip LT min 2V Clinical History: pain. NKI. LATERAL HIP SWELLING Comparison: 11/01/2024 Technique: 2 views left hip Findings/impression: 1. No fracture or dislocation left hip. 2. Left hip joint space narrowing with mild associated degenerative changes Reviewed, dictated and finalized at location R.
--- OUTSIDE RECORDS SUMMARY | 2024-11-04 19:41 | XMS_ITS | Encounter Summary ---
Author Organization [facility] Address [facility] [place] [address] Care Team Providers Care Clinical Admissions Manager Name Role Phone Rhianna Shepard Primary Care Provider [phone] Encounter Details Date Type Department Care Team (Late st Contact Info) Description 07/13/2018 Abstract SFL CONVERSION [address] [place] [address] , Generic Conversion, Social History Tobacco Use [...] on filedocumented in this encounter Care Teams Clinical Admissions Manager Relationship Specialty Start Date End Date Rhianna Shepard PA [address] [place] [address] PCP - General PHYSICIAN BOATSWAIN MATE 11/18/19 documented as of this encounter
--- OUTSIDE RECORDS SUMMARY | 2024-11-04 19:41 | XMS_ITS | Clinical Summary ---
Author Organization [facility] Address [address] [place] [address] Care Team Providers Care Long Wall Mining Machine Helper Name Role Phone Rhianna Shepard Primary Care Provider [phone] Allergies Active Allergy Reactions Criticality Noted Date [...] Most Recently Relevant to Health Maintenance Insurance [employer] Care Teams Long Wall Mining Machine Helper Relationship Specialty Start Date End Date Rhianna Shepard PA [address] [place] [address] PCP - General PHYSICIAN EYEGLASS LENS GENERATOR 11/18/19
[2024-11-04 19:42] VITALS: BP 136/68; PULSE 73; RESP 18; TEMP 36.9; O2SAT 94
--- OUTSIDE RECORDS SUMMARY | 2024-11-04 19:42 | XMS_ITS | Clinical Summary ---
Author Organization [facility] [address] [place] [address] Phone Care Team Providers Care Gi Technician Name Role Phone ShepardRhianna oleary Mandie RODRIGO Primary Care Provider [phone] Allergies No known active allergies Medications No known medications Encounters Date Type Department Care Team Description 08/07/2024 Orders Only [facility] Medical Group Cardiology [address] [place] [address] Josh Alicia MD 08/06/2024 Orders Only [facility] Medical [facility] Cardiology [address] [place] [address] Josh Alicia MD from Last 3 Months Social History Tobacco Use Types Packs/Day Years Used Date Smoking Tobacco: Former Smokeless Tobacco: Former Comments Unknown Sex and Gender Information Value Date Recorded Sex Assigned at Not on file Legal Sex 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
--- OUTSIDE RECORDS SUMMARY | 2024-11-04 19:42 | XMS_ITS | Patient Health Record ---
Author Organization [facility] As [employer] Address [address] [facility] [address] [place] [address] Care Team Providers Care Ice Cream Machine Operator Name Role Phone Arsalan Carreno Unavailable [phone] Reason For Referral No Information Plan Of Treatment No Information
--- OUTSIDE RECORDS SUMMARY | 2024-11-05 00:01 | XMS_ITS | Clinical Summary ---
Author Organization [facility] Address [facility] [place] [address] Care Team Providers Care Silk Screen Etcher Name Role Phone Rhianna Shepard Primary Care Provider [phone] Allergies Active Allergy Reactions Criticality Noted Date [...] in one year would seem adequate. us Rhianan WALLACE MAMMO Final Result from Last 3 Months or Most Recently Relevant to Health Maintenance Insurance [employer] Care Teams Silk Screen Etcher Relationship Specialty Start Date End Date Rhianna Shepard PA [address] [place] [address] PCP - General PHYSICIAN WASTE MANAGEMENT SPECIALIST 11/18/19
--- OUTSIDE RECORDS SUMMARY | 2024-11-05 00:01 | XMS_ITS | Patient Health Record ---
Author Organization [facility] As [employer] Address [address] [facility] [address] [place] [address] Care Team Providers Care Ciaio Lumite Injector Name Role Phone Arsalan Carreno Unavailable [phone] Reason For Referral No Information Plan Of Treatment No Information
--- OUTSIDE RECORDS SUMMARY | 2024-11-05 00:01 | XMS_ITS | Clinical Summary ---
Author Organization [facility] [address] Address [address] [place] [address] Phone Care Team Providers Care Legal Billing Clerk Name Role Phone ShepardRhianna oleary Mandie WALLACE Primary Care Provider [phone] Allergies No known active allergies Medications No known medications Encounters Date Type Department Care Team Description 08/07/2024 Orders Only [facility] Medical Group Cardiology [address] [place] [address] Josh Alicia MD 08/06/2024 Orders Only [facility] Medical [facility] Cardiology [address] [place] [address] Josh Alicia MD from Last 3 Months Social History Tobacco Use Types Packs/Day Years Used Date Smoking Tobacco: Former Smokeless Tobacco: Former Comments Unknown Sex and Gender Information Value Date Recorded Sex Assigned at Not on file Legal 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
--- OUTSIDE RECORDS SUMMARY | 2024-11-05 00:01 | XMS_ITS | Encounter Summary ---
Author Organization [facility] Address [facility] [place] [address] Care Team Providers Care Ingredient Scaler Name Role Phone Rhianna Shepard Primary Care Provider [phone] Encounter Details Date Type Department Care Team (Late st Contact Info) Description 07/13/2018 Abstract SFL CONVERSION [address] [place] [address] , Generic Conversion, Social History Tobacco Use [...] on filedocumented in this encounter Care Teams Ingredient Scaler Relationship Specialty Start Date End Date Rhianna Shepard PA [address] [place] [address] PCP - General PHYSICIAN SWING TENDER 11/18/19 documented as of this encounter
--- NOTE | 2024-11-05 00:18 | ED.EXTPRO ---
HPI - Extremity Problem General Chief complaint: Extremity Problem,Nontraumatic Stated complaint: hip and arm pain Time Seen by Provider: 11/04/24 23:55 Source: patient Mode of arrival: ambulatory Limitations: no limitations History of Present Illness HPI Narrative: This is a 59-year-old female that presents emergency department for left hip pain. Ongoing since an injury a couple of days prior to arrival. Reports she slipped and almost did the splits. Was evaluated by her PCP with an x-ray which was negative. Was prescribed an anti-inflammatory, has been taking this with little relief. Reports some swelling in the area. Denies fevers, erythema. Related Data Home Medications ?Medication ?Instructions ?Recorded ?Confirmed ?Last Taken ?Type omeprazole magnesium 20 mg 20 mg PO DAILY 04/13/19 07/29/24 07/29/24 History tablet,delayed release (Prilosec OTC) atorvastatin 40 mg tablet 60 mg PO DAILY 06/01/21 07/29/24 07/29/24 History fluoxetine 40 mg capsule (Prozac) 20 mg PO BID 06/01/21 07/29/24 07/29/24 History multivitamin with minerals 1 tablet PO DAILY 12/01/21 07/29/24 07/29/24 History lisinopril 40 mg tablet 40 mg PO DAILY 10/31/22 07/29/24 07/29/24 History olanzapine 10 mg tablet 10 mg PO HS 11/17/22 07/29/24 07/28/24 History metformin 500 mg tablet,extended 500 mg PO BID 09/28/23 07/29/24 07/29/24 History release 24 hr topiramate 50 mg tablet 50 mg PO DAILY 09/28/23 07/29/24 07/29/24 History alprazolam 1 mg tablet 1 mg PO BID PRN Anxiety 07/29/24 07/29/24 07/29/24 History atorvastatin 20 mg tablet 20 mg PO DAILY 08/12/24 Unknown History Allergies Allergy/AdvReac Type Severity Reaction Status Date / Time No Known Allergies Allergy Unknown Verified 11/01/24 13:38 Review of Systems Review of Systems: All systems reviewed & are unremarkable except as noted in HPI and below PMFSH Past Medical History Medical History Pulmonary embolism After cholecystectomy in 1991 Migraines Bipolar disorder Morbid obesity with BMI of 40.0-44.9, adult Necrotizing pneumonia Two thousand twenty-two Insect bite Hx MRSA infection Congestive heart failure Hypertension COPD (chronic obstructive pulmonary disease) Asthma Anxiety Depression Surgical History Surgical History History of hysterectomy for benign disease (2007) History of left oophorectomy (~2007) History of incision and drainage Several areas to left forearm for MRSA 2002 History of cholecystectomy (~1991) History of tubal ligation Family History Family History Father Valvular heart disease Mother , Mother at age 60. Diabetes mellitus Smoker Sibling Rheumatoid arthritis Has RA in her hands, sees donation worker. Social History Social History Social History: The patient is but lives with her boyfriend, of 26 years, and her daughter and granddaughter. She has a daughter and a son. Her oldest son She used to binge drink about once a month until she was unconscious but quit drinking alcohol around age 41. She used to smoke crack cocaine from about age 26 to age 41. She reports she started smoking in order to deal with her withdrawal from the other substances and she proceeded to smoke 1.5 packs of cigarettes per day for about 8 years but quit smoking at age 51. She works at [employer] in the [facility]. Code status: Full code Surrogate decision maker: Her son Smoking packs per day: 1.5 Smoking cigarettes per day: 30.0 Years smoked: 8 Smoking pack-years: 12.00 Smoking status: Former smoker Tobacco type: cigarettes Second hand tobacco smoke exposure: Yes Alcohol intake: never Substance use: never Substance use type: does not use Do You Feel Safe in your Home?: Yes Lack of Transportation: No Lack of Food: Never True Current Housing: I Have Housing Concerned About Future Housing: No Difficulty Paying Gas/Electric Bills: No Difficulty Paying for Meds: No Currently Unemployed: No Education: High School Diploma/GED Difficulty w/ Childcare or Family Care: No Spiritual care concerns: No Exam Narrative: GENERAL: Well-appearing, well-nourished, and in no acute distress. HEAD: Normocephalic, atraumatic. EYES: EOMI. CHEST: No respiratory distress. HEART: Regular rate EXTREMITIES: Normal range of motion. No edema or erythema. Normal DP pulse. Normal sensation. Tender to palpation over the greater trochanter SKIN: Warm, dry, no rash. NEURO: No focal deficits. Alert and oriented x3. PSYCH: Normal mood and affect Course Course Emergency Course: patient updated on her workup. Resting comfortably Vital Signs Vital signs: Vital Signs Temperature 98.4 F 11/04/24 19:42 Pulse Rate 73 11/04/24 19:42 Respiratory Rate 18 11/04/24 19:42 Blood Pressure 136/68 11/04/24 19:42 Pulse Oximetry 94 11/04/24 19:42 Oxygen Delivery Room Air 11/04/24 19:42 Temperature 98.4 F 11/04/24 19:42 Pulse Rate 73 11/04/24 19:42 Respiratory Rate 18 11/04/24 19:42 Blood Pressure 136/68 11/04/24 19:42 Pulse Oximetry 94 11/04/24 19:42 Oxygen Delivery Room Air 11/04/24 19:42 MDM - Extremity (Nontraumatic) MDM Narrative Medical decision making narrative: Patient presents to the ER for left hip pain after an injury a couple of days prior to arrival. Seen by her PCP with negative x-rays. Patient is neurovascularly intact. CT of the left hip without acute osseous abnormalities or abnormalities of the soft tissues. Patient updated on her workup. Will be given follow-up with Orthopedics. She was given warnings to return to the ER Differential Diagnosis Differential diagnosis: Likely other (bursitis, hip sprain) Imaging Data Radiologist's impression: CT left hip: No acute fracture or dislocation. Bone island in the left ischium. Unremarkable appearance of the soft tissues Critical Care Time Critical Care Time Critical Care Time: No Discharge Plan Discharge Clinical Impression: Acute pain of left hip Patient Disposition: Home Condition: Stable Instructions: Hip Bursitis (ED) Additional Instructions: Return to the ER if you experience fever, redness and swelling of your extremity, numbness or any other symptoms that are concerning to you Ice and elevate extremity. Over the counter pain medication as needed. Lidocaine patch to the area of pain as needed Follow up with orthopedics for further care. Patient Language: Sierra Leonean Prescriptions: New lidocaine 5 % adhesive patch,medicated 1 patch topical DAILY PRN (Reason: pain) Qty: 15 0RF Rx Instructions: leave on most painful area for up to 12 hrs No Action omeprazole magnesium [Prilosec OTC] 20 mg Tablet,Delayed Release (Dr/Ec) 20 mg PO DAILY lisinopril 40 mg tablet 40 mg PO DAILY olanzapine 10 mg tablet 10 mg PO HS fluoxetine [Prozac] 40 mg capsule 20 mg PO BID atorvastatin 40 mg tablet 60 mg PO DAILY metformin 500 mg tablet extended release 24 hr 500 mg PO BID topiramate 50 mg tablet 50 mg PO DAILY cyclobenzaprine 10 mg tablet 10 mg PO TID PRN (Reason: muscle spasm) Qty: 14 0RF naproxen 500 mg tablet 500 mg PO BID Qty: 14 0RF Rx Instructions: take with meals atorvastatin 20 mg tablet 20 mg PO DAILY multivitamin with minerals Tablet 1 tablet PO DAILY albuterol sulfate 90 mcg/actuation HFA aerosol inhaler 2 puff INHALATION Q4H PRN (Reason: Wheezing) Qty: 1 0RF alprazolam 1 mg tablet 1 mg PO BID PRN (Reason: Anxiety) aspirin 81 mg Tablet,Delayed Release (Dr/Ec) 81 mg PO QAM Qty: 30 0RF Follow-up/Referrals: Devyn,ROBERT Moctezuma [Primary Care Provider] Anderson Marquez MD [Physician, Orthopedics]
[2024-11-05] MEDS: ACETAMINOPHEN 500 MG TABLET 1000 MG PO (00:22)
[2024-11-05] MEDS: LIDOCAINE 5% PATCH 1 PATCH TRANSDERM (00:22)
[2024-11-05] MEDS: diazePAM INJ (*CRX) 10 MG/2 ML SYRINGE 5 MG IM (00:22)
== END 2024-11-05 02:37 | disposition home or self-care (01) ==
PROVIDERS: Emergency Provider Physician Assistant; PCP Physician Assistant
DX: M25.552 Pain in left hip (principal); I11.0 Hypertensive heart disease with heart failure; I50.9 Heart failure, unspecified; J44.9 Chronic obstructive pulmonary disease, unspecified; Z87.891 Personal history of nicotine dependence; W01.0XXA Fall on same level from slipping, tripping and stumbling without subsequent striking against object, initial encounter
CPT/HCPCS: 73502; 73700; 96372; 99284; A9270; J3360

== ENCOUNTER 2024-11-14 16:15 | Emergency (ER) | payer OTHER, SELFPAY ==
[2024-11-14] VITALS (21 sets, daily range): BP systolic 121–143; BP diastolic 74–97; PULSE 70–86; RESP 13–22; TEMP 36.6–37; O2SAT 95–100
--- NOTE | ~2024-11-14 | CT_ITS ---
EXAMINATION: CTA brain carotid, 11/14/2024 16:40 CDT HISTORY: CVA COMPARISON: No comparisons available. TECHNIQUE: CTA scan with 3D Reconstructions of the brain and neck was performed with contrast Isovue 300, 92cc injected IV. One or more of the following dose reduction techniques were used: automated exposure control, adjustment of the mA and/or kV according to patient size, use of iterative reconstruction technique. Unless otherwise stated, incidental findings do not require dedicated follow up imaging FINDINGS: CTA brain: The noncontrast images of the brain demonstrate no gross parenchymal hemorrhage. The mastoid air cells, sinuses and orbits are unremarkable. The basilar artery is unremarkable. The right posterior cerebral arteries unremarkable abdominal effect by the [place] of [place]. The left posterior cerebral artery appears unremarkable. The right petrous and cavernous ICA segments unremarkable. The right M1, M2 segments and their branches are unremarkable. The right A1 segment appears diminutive, the right A2 segment is unremarkable. The left petrous and cavernous ICA segments unremarkable. The left M1, M2 segments and branches unremarkable. The left A1 and A2 segments are unremarkable. CTA NECK: Soft tissues are unremarkable. Parotid and submandibular glands are unremarkable. No gross thyroid nodules. No cervical lymphadenopathy. The lung apices appear unremarkable. No sclerotic or lytic lesions. The cervical segments of the vertebral arteries are unremarkable. Right CCA unremarkable. Right ICA unremarkable. Tortuosity noted of the right ICA. Left CCA unremarkable. Proximal left ICA unremarkable. Tortuosity noted of the ICA. IMPRESSION: 1. No critical stenosis, aneurysm or occlusion identified Reviewed, dictated and finalized at location P.
--- NOTE | 2024-11-14 16:34 | ED.NEUROSD ---
HPI - Neuro Symptoms/Deficit General Chief Complaint: Suspected CVA Stated Complaint: dizzy; right sided numbness Time Seen by Provider: 11/14/24 16:28 Source: patient Mode of arrival: ambulatory Limitations: no limitations History of Present Illness HPI Narrative: 59-year-old with a history of hypertension, hyperlipidemia, diabetes was brought in by daughter with a complains of sudden onset of dizziness associated with the right lower extremity weakness. Patient states that she was having hard time walking and she was dragging of feet. She denies any chest pain. Complains of mild headache and confusion. No previous history of CVA or TIA. Onset (ago): minute(s) (45) Time: 15:30 Last Observed Normal: 15:30 Timing confirmed by: family member Location: right leg History of same: Yes Severity: moderate Quality: weak Relieving factors: none Exacerbating factors: none Context: sudden onset On Anticoagulants: No Associated symptoms: denies other symptoms Treatments Prior to Arrival: none Related Data Home Medications ?Medication ?Instructions ?Recorded ?Confirmed ?Last Taken ?Type omeprazole magnesium 20 mg 20 mg PO DAILY 04/13/19 07/29/24 07/29/24 History tablet,delayed release (Prilosec OTC) atorvastatin 40 mg tablet 60 mg PO DAILY 06/01/21 07/29/24 07/29/24 History fluoxetine 40 mg capsule (Prozac) 20 mg PO BID 06/01/21 07/29/24 07/29/24 History multivitamin with minerals 1 tablet PO DAILY 12/01/21 07/29/24 07/29/24 History lisinopril 40 mg tablet 40 mg PO DAILY 10/31/22 07/29/24 07/29/24 History olanzapine 10 mg tablet 10 mg PO HS 11/17/22 07/29/24 07/28/24 History metformin 500 mg tablet,extended 500 mg PO BID 09/28/23 07/29/24 07/29/24 History release 24 hr topiramate 50 mg tablet 50 mg PO DAILY 09/28/23 07/29/24 07/29/24 History alprazolam 1 mg tablet 1 mg PO BID PRN Anxiety 07/29/24 07/29/24 07/29/24 History atorvastatin 20 mg tablet 20 mg PO DAILY 08/12/24 Unknown History Allergies Allergy/AdvReac Type Severity Reaction Status Date / Time No Known Allergies Allergy Unknown Verified 11/14/24 17:07 Review of Systems Review of Systems: All systems reviewed & are unremarkable except as noted in HPI and below Constitutional: Constitutional: Reports no additional constitutional complaints Eyes: Eyes: Reports no additional eye complaints ENT: Reports system reviewed and no additional complaints, except as documented Cardiovascular: Cardiovascular: Reports no additional cardiovascular complaints Respiratory: Respiratory: Reports no additional respiratory complaints Gastrointestinal: Gastrointestinal: Reports no additional gastrointestinal complaints Genitourinary: Genitourinary: Reports no additional female genitourinary complaints Musculoskeletal: Musculoskeletal: Reports no additional musculoskeletal complaints Integumentary/Breasts: Skin/Breast: Reports system reviewed and no additional complaints, except as docu Neurologic: Reports as per HPI Endocrine: Endocrine: Reports no additional endocrine complaints [facility] Past Medical History Medical History Pulmonary embolism After cholecystectomy in 1991 Migraines Bipolar disorder Morbid obesity with BMI of 40.0-44.9, adult Necrotizing pneumonia Two thousand twenty-two Insect bite Hx MRSA infection Congestive heart failure Hypertension COPD (chronic obstructive pulmonary disease) Asthma Anxiety Depression Surgical History Surgical History History of hysterectomy for benign disease (2007) History of left oophorectomy (~2007) History of incision and drainage Several areas to left forearm for MRSA 2001 History of cholecystectomy (~1991) History of tubal ligation Family History Family History Father Valvular heart disease Mother , Mother at age 60. Diabetes mellitus Smoker Sibling Rheumatoid arthritis Has RA in her hands, sees veterinary virologist. Social History Social History Social History: The patient is but lives with her boyfriend, of 26 years, and her daughter and granddaughter. She has a daughter and a son. Her oldest son She used to binge drink about once a month until she was unconscious but quit drinking alcohol around age 41. She used to smoke crack cocaine from about age 26 to age 41. She reports she started smoking in order to deal with her withdrawal from the other substances and she proceeded to smoke 1.5 packs of cigarettes per day for about 8 years but quit smoking at age 51. She works at [employer] in the [employer]. Code status: Full code Surrogate decision maker: Her son Smoking packs per day: 1.5 Smoking cigarettes per day: 30.0 Years smoked: 8 Smoking pack-years: 12.00 Smoking status: Former smoker Tobacco type: cigarettes Second hand tobacco smoke exposure: Yes Alcohol intake: never Substance use: never Substance use type: does not use Do You Feel Safe in your Home?: Yes Lack of Transportation: No Lack of Food: Never True Current Housing: I Have Housing Concerned About Future Housing: No Difficulty Paying Gas/Electric Bills: No Difficulty Paying for Meds: No Currently Unemployed: No Education: High School Diploma/GED Difficulty w/ Childcare or Family Care: No Spiritual care concerns: No Exam Narrative: GENERAL: Well-appearing, well-nourished, and in no acute distress. HEAD: Normocephalic, atraumatic. EYES: PERRLA and EOMI. ENT: Nares clear, no rhinorrhea or epistaxis. Mucous membranes moist. NECK: Supple. CHEST: Clear to auscultation. No respiratory distress. HEART: Regular rate and rhythm. No murmur heard. Normal peripheral pulses. ABDOMEN: Soft, nontender, nondistended, normal active bowel sounds. EXTREMITIES: Normal range of motion. No edema. SKIN: Warm, dry, no rash. NEURO: Alert and oriented x3.weakness n the right lower ext.see NIH PSYCH: Normal mood and affect. Course Course Emergency Course: notified patient about her lab work, CTA findings. She still continues to feel weak of the right lower extremity. She was unable to lift her leg up against gravity. Discussed with the Stroke Neurology at of [facility] even though her NIH score is low and but she has a disabling situation we will go ahead and give TNK. Patient is agreeable with the medication. Vital Signs Vital signs: Vital Signs Temperature 36.6 C 11/14/24 16:15 Pulse Rate 80 11/14/24 16:15 Respiratory Rate 18 11/14/24 16:15 Blood Pressure 135/80 11/14/24 16:15 Pulse Oximetry 95 11/14/24 16:15 Oxygen Delivery Room Air 11/14/24 16:15 Temperature 37.0 C 11/14/24 18:10 Pulse Rate 86 11/14/24 18:10 Respiratory Rate 20 11/14/24 18:10 Blood Pressure 143/89 H 11/14/24 18:10 Pulse Oximetry 98 11/14/24 18:10 Oxygen Delivery Nasal Cannula 11/14/24 18:10 Oxygen Flow Rate 2 11/14/24 18:10 MDM - Neuro Symptoms/Deficit MDM Narrative Medical decision making narrative: 59-year-old with the hypertension diabetes, hypercholesteremia sudden onset of dizziness associated with more confusion and right lower extremity weakness started about 15 30 exam she is weak in the right lower extremity and I would score is [address] and a CTA of the head and lab work. She does meet criteria [address] of the head is normal ,will discuss with Neurology as well . Differential Diagnosis Differential diagnosis: Likely subarachnoid hemorrhage, cerebrovascular accident and transient cerebral ischemia Medical Records Attestation: I reviewed the patient's medical records. Lab Data Attestation: I reviewed the patient's lab results. 11/14/24 16:28 11/14/24 16:28 Labs: Lab Results 11/14/24 11/14/24 Range/Units 16:28 16:29 WBC 8.0 (4.8-10.8) K/mm3 RBC 4.27 (4.20-5.40) M/mm3 Hgb 12.1 (12.0-15.0) g/dL Hct 38.3 (35.0-49.0) % MCV 89.7 (78.0-102.0) fL MCH 28.3 (27.0-31.0) pg MCHC 31.6 L (32-36) g/dL RDW 13.4 (11.6-14.4) % Plt Count 308 (150-420) K/mm3 MPV 10.0 (9.2-11.8) fl Immature Gran % (Auto) 0.4 H (0.0-0.0) % Neut % (Auto) 60.7 (50.0-70.0) % Lymph % (Auto) 28.5 (18.0-42.0) % [place] % (Auto) 5.9 (2.0-11.0) % Eos % (Auto) 4.1 (1.0-6.0) % Baso % (Auto) 0.4 (0.0-1.0) % Lymph # (Auto) 2.27 (1.10-4.50) K/mm3 [place] # (Auto) 0.47 (0.10-0.90) K/mm3 Eos # (Auto) 0.33 (0.02-0.50) K/mm3 Baso # (Auto) 0.03 (0.00-0.10) K/mm3 Abs Immat Gran (auto) 0.03 H (0.00-0.00) K/mm3 Absolute Neuts (auto) 4.83 (1.70-7.20) K/mm3 Absolute Nucleated RBC 0.00 (0.00-0.00) K/mm3 Nucleated RBC % 0.0 (0-0.0) % PT 10.1 (9.50-12.1) Seconds INR 0.9 APTT 28.5 (23.9-30.70) Sec Sodium 142 (137-145) mmol/L Potassium 3.9 (3.4-5.0) mmol/L Chloride 107 (98-107) mmol/L Carbon Dioxide 25 (22-30) mmol/L Anion Gap 10 (4-12) mmol/L BUN 9 (7-17) mg/dL Creatinine 0.54 L (0.7-1.0) mg/dL Estim Creat Clear Calc 129 ml/min Estimated GFR > 60 (59 - ) Glucose 111 H (65-110) mg/dL Calculated Osmolality 293 (285-295) mOsm/kg Calcium 9.6 (8.4-10.2) mg/dL Total Bilirubin 0.3 (0.2-1.3) mg/dL AST 28 (14-36) U/L ALT 30 (6-35) U/L Alkaline Phosphatase 125 (38-126) U/L Troponin I < 0.012 (0.000-0.034) ng/mL Total Protein 8.0 (6.3-8.2) g/dL Albumin 4.3 (3.5-5.1) g/dL Imaging Data Radiologist's impression: ITS Impressions Head/Neck CTA 11/14/24 17:02 IMPRESSION: 1. No critical stenosis, aneurysm or occlusion identified ECG Data EKG #1: ECG completion date: 11/14/24 ECG completion time: 16:45 EKG Interpretation: sinus rhythm (77), no ectopy, normal QRS, normal QT and no acute changes Critical Care Time Critical Care Time Total Critical Care Time: 45 Discharge Plan Discharge Clinical Impression: Acute CVA (cerebrovascular accident) Patient Disposition: Acute Care Hospital Condition: Stable Patient Language: Afghan Prescriptions: No Action omeprazole magnesium [Prilosec OTC] 20 mg Tablet,Delayed Release (Dr/Ec) 20 mg PO DAILY lisinopril 40 mg tablet 40 mg PO DAILY olanzapine 10 mg tablet 10 mg PO HS fluoxetine [Prozac] 40 mg capsule 20 mg PO BID atorvastatin 40 mg tablet 60 mg PO DAILY metformin 500 mg tablet extended release 24 hr 500 mg PO BID topiramate 50 mg tablet 50 mg PO DAILY cyclobenzaprine 10 mg tablet 10 mg PO TID PRN (Reason: muscle spasm) Qty: 14 0RF naproxen 500 mg tablet 500 mg PO BID Qty: 14 0RF Rx Instructions: take with meals atorvastatin 20 mg tablet 20 mg PO DAILY multivitamin with minerals Tablet 1 tablet PO DAILY albuterol sulfate 90 mcg/actuation HFA aerosol inhaler 2 puff INHALATION Q4H PRN (Reason: Wheezing) Qty: 1 0RF alprazolam 1 mg tablet 1 mg PO BID PRN (Reason: Anxiety) aspirin 81 mg Tablet,Delayed Release (Dr/Ec) 81 mg PO QAM Qty: 30 0RF lidocaine 5 % adhesive patch,medicated 1 patch topical DAILY PRN (Reason: pain) Qty: 15 0RF Rx Instructions: leave on most painful area for up to 12 hrs Follow-up/Referrals: Lea,Herb Liang NP [Primary Care Provider, [facility]] Time of Disposition: 18:14 Quality Stroke Date of last known normal: 11/14/24 Time of last known normal: 16:45 Stroke Scale Stroke Scale 1: Stroke scale date:: 11/14/24 Stroke scale time:: 16:45 1a Level of consciousness: alert-0 1b Level of consciousness questions: answers both correctly-0 1c Level of consciousness commands: obeys both correctly-0 2 Best gaze: normal-0 3 Visual: no visual loss-0 4 Facial palsy: normal-0 5a Motor: left arm: no drift-0 5b Motor: right arm: no drift-0 6a Motor: left leg: some effort/gravity-2 6b Motor: right leg: no effort/gravity-3 7 Limb ataxia: absent-0 8 Sensory: normal-0 9 Best language: no aphasia-0 10 Dysarthria: normal-0 11 Extinction and inattention: no abnormality-0 Level:: 5
[2024-11-14 16:35] LABS: Hematocrit 38.3 % (35.0-49.0); Hemoglobin 12.1 g/dL (12.0-15.0); Immature Granulocyte Percent A 0.4 % (0.0-0.0); Lymphocytes Absolute Auto 2.27 K/mm3 (1.10-4.50); Mean Corpuscular HGB Conc 31.6 g/dL (32-36); Mean Corpuscular Hemoglobin 28.3 pg (27.0-31.0); Mean Corpuscular Volume 89.7 fL (78.0-102.0); Nucleated Red Blood Cells Absolute Auto 0.00 K/mm3 (0.00-0.00); Nucleated Red Blood Cells Perc 0.0 % (0-0.0); Platelet Count Result 308 K/mm3 (150-420); Red Blood Count 4.27 M/mm3 (4.20-5.40); White Blood Count 8.0 K/mm3 (4.8-10.8)
[2024-11-14 16:44] LABS: Alanine Aminotransferase 30 U/L (6-35); Albumin Level 4.3 g/dL (3.5-5.1); Alkaline Phosphatase 125 U/L (38-126); Anion Gap 10 mmol/L (4-12); Aspartate Amino Transferase 28 U/L (14-36); Bilirubin,Total 0.3 mg/dL (0.2-1.3); Blood Urea Nitrogen 9 mg/dL (7-17); Calcium 9.6 mg/dL (8.4-10.2); Carbon Dioxide 25 mmol/L (22-30); Chloride 107 mmol/L (98-107); Estimated CRCL calculation 129 ml/min; Estimated Glomerular Filt Rate > 60; Glucose 111 mg/dL (65-110); Osmolality Calculated 293 mOsm/kg (285-295); Potassium 3.9 mmol/L (3.4-5.0); Sodium 142 mmol/L (137-145); Total Protein 8.0 g/dL (6.3-8.2)
[2024-11-14 16:48] LABS: INR 0.9; Partial Thromboplastin Time 28.5 Sec (23.9-30.70); Prothrombin Time 10.1 Seconds (9.50-12.1)
--- NOTE | 2024-11-14 16:49 | PC.NURSE ---
1625 overhead page stat stroke. [address] per stretcher with kathe corbett staff. 1647 pt returned to room. 1648 pt able to drink water from cup without difficulty
[2024-11-14 16:56] LABS: Troponin I < 0.012 ng/mL (0.000-0.034)
--- NOTE | 2024-11-14 17:29 | ECG_ITS ---
Test Date: 2024-11-14 16:45:41 Measurements Intervals [place] Rate: 77 P: 60 WI: 146 QRS: 50 QRSD: 110 T: 50 QT: 392 QTc: 444 Interpretive Statements SINUS RHYTHM LOW QRS VOLTAGE IN PRECORDIAL LEADS BORDERLINE T WAVE ABNORMALITY- ANTERIOR LEADS BASELINE ARTIFACT- I, II, III, AVR, AVL, AVF BORDERLINE ECG Compared to ECG 07/29/2024 20:14:15 Short WI interval no longer present Electronically Signed On 11-14-2024 18:40:20 CDT by Jeffery Flores D.O.
[2024-11-14] MEDS: TENECTEPLASE 50 MG/10 ML VIAL 25 MG IV PUSH (17:48)
== END 2024-11-14 18:32 | disposition short-term general hospital (02) ==
PROVIDERS: Emergency Provider Family Medicine; PCP Nurse Practitioner Family
DX: I63.9 Cerebral infarction, unspecified (principal); E78.5 Hyperlipidemia, unspecified; I10 Essential (primary) hypertension; E11.9 Type 2 diabetes mellitus without complications; I11.0 Hypertensive heart disease with heart failure; I50.9 Heart failure, unspecified; J44.9 Chronic obstructive pulmonary disease, unspecified; Z87.891 Personal history of nicotine dependence
CPT/HCPCS: 36415; 70496; 70498; 80053; 82948; 84484; 85025; 85610; 85730; 93005; 96374; 99285; J3101; Q9967

== ENCOUNTER 2024-11-24 17:58 | Observation (INO) | payer OTHER, SELFPAY ==
[2024-11-24] VITALS (18 sets, daily range): BP systolic 99–147; BP diastolic 61–83; PULSE 70–93; RESP 16–22; TEMP 36.7–36.9; O2SAT 93–97; BMI 44.3
--- NOTE | ~2024-11-24 | XR_ITS ---
XR chest 1V portable INDICATION:chest pressure . REFERENCE: None FINDINGS: A single AP of the chest demonstrates normal heart size. There are interstitial and groundglass opacities bilaterally left greater than right. There is no evidence of pneumothorax or pleural effusion. IMPRESSION: Interstitial groundglass opacities bilaterally may represent pulmonary congestion. Reviewed, dictated and finalized at location S. IMPRESSION: Interstitial groundglass opacities bilaterally may represent pulmonary congesti on.
--- NOTE | 2024-11-24 18:00 | ECG_ITS ---
Test Date: 2024-11-24 18:03:01 Measurements Intervals [place] Rate: 73 P: 52 ID: [id number] QRS: 68 QRSD: 104 T: 71 QT: 401 QTc: 443 Interpretive Statements SINUS RHYTHM MINIMAL Q WAVES- INFERIOR LEADS BORDERLINE ECG Compared to ECG 11/14/2024 16:45:41 No significant changes Electronically Signed On 11-24-2024 19:34:53 CDT by Jeffery Flores D.O.
--- NOTE | 2024-11-24 18:22 | ED.GENADULT ---
HPI - General Adult General Chief complaint: Chest Pain Stated complaint: dizzyness Time Seen by Provider: 11/24/24 18:05 History of Present Illness HPI narrative: Palma is a 59F with a PMH of bipolar disorder, hypomagnesemia, COPD, obesity, (hole in her heart??), HTN, GERD, HLD and possible recent CVA that presented to the ED with chest pain. She woke up this morning and felt off, a little confused and tired. However, 20 minutes prior to arrival she had a heavy pressure on her chest with nausea and lightheadedness with mild dyspnea. She did have a positive Lexiscan a few months ago but reports her cath was negative. She was treated for a CVA with TNK a week ago for possible CVA. Related Data Home Medications ?Medication ?Instructions ?Recorded ?Confirmed ?Last Taken ?Type omeprazole magnesium 20 mg 20 mg PO DAILY 04/13/19 07/29/24 07/29/24 History tablet,delayed release (Prilosec OTC) atorvastatin 40 mg tablet 60 mg PO DAILY 06/01/21 07/29/24 07/29/24 History fluoxetine 40 mg capsule (Prozac) 20 mg PO BID 06/01/21 07/29/24 07/29/24 History multivitamin with minerals 1 tablet PO DAILY 12/01/21 07/29/24 07/29/24 History lisinopril 40 mg tablet 40 mg PO DAILY 10/31/22 07/29/24 07/29/24 History olanzapine 10 mg tablet 10 mg PO HS 11/17/22 07/29/24 07/28/24 History metformin 500 mg tablet,extended 500 mg PO BID 09/28/23 07/29/24 07/29/24 History release 24 hr topiramate 50 mg tablet 50 mg PO DAILY 09/28/23 07/29/24 07/29/24 History alprazolam 1 mg tablet 1 mg PO BID PRN Anxiety 07/29/24 07/29/24 07/29/24 History atorvastatin 20 mg tablet 20 mg PO DAILY 08/12/24 Unknown History Allergies Allergy/AdvReac Type Severity Reaction Status Date / Time No Known Allergies Allergy Unknown Verified 11/14/24 17:07 Review of Systems Review of Systems: All systems reviewed & are unremarkable except as noted in HPI and below PMFSH Past Medical History Medical History Pulmonary embolism After cholecystectomy in 1991 Migraines Bipolar disorder Morbid obesity with BMI of 40.0-44.9, adult Necrotizing pneumonia Two thousand twenty-two Insect bite Hx MRSA infection Congestive heart failure Hypertension COPD (chronic obstructive pulmonary disease) Asthma Anxiety Depression Surgical History Surgical History History of hysterectomy for benign disease (2007) History of left oophorectomy (~2007) History of incision and drainage Several areas to left forearm for MRSA 2001 History of cholecystectomy (~1991) History of tubal ligation Family History Family History Father Valvular heart disease Mother , Mother at age 60. Diabetes mellitus Smoker Sibling Rheumatoid arthritis Has RA in her hands, sees nurseryperson. Social History Social History Social History: The patient is but lives with her boyfriend, of 26 years, and her daughter and granddaughter. She has a daughter and a son. Her oldest son She used to binge drink about once a month until she was unconscious but quit drinking alcohol around age 41. She used to smoke crack cocaine from about age 26 to age 41. She reports she started smoking in order to deal with her withdrawal from the other substances and she proceeded to smoke 1.5 packs of cigarettes per day for about 8 years but quit smoking at age 51. She works at [employer] in the [employer]. Code status: Full code Surrogate decision maker: Her son Smoking packs per day: 1.5 Smoking cigarettes per day: 30.0 Years smoked: 8 Smoking pack-years: 12.00 Smoking status: Former smoker Tobacco type: cigarettes Second hand tobacco smoke exposure: Yes Alcohol intake: never Substance use: never Substance use type: does not use Do You Feel Safe in your Home?: Yes Lack of Transportation: No Lack of Food: Never True Current Housing: I Have Housing Concerned About Future Housing: No Difficulty Paying Gas/Electric Bills: No Difficulty Paying for Meds: No Currently Unemployed: No Education: High School Diploma/GED Difficulty w/ Childcare or Family Care: No Spiritual care concerns: No Exam Const: General: cooperative, healthy appearing, comfortable, no acute distress, well developed, alert, awake and Physically active Orientation/consciousness: oriented to person, oriented to place and oriented to time HENMT: Head: normal to inspection, normocephalic and atraumatic Ears: hearing grossly normal bilaterally and external ears normal Face/Nose/Sinus: Normal external nose present Eyes: General: appearance normal, both eyes and all related structures Periorbital: periorbital findings normal Sclera: sclerae normal Pupils: Equal, round and reactive pupils present Neck: Neck: normal visual inspection Chest: Chest palpation & inspection: normal inspection of the chest Resp: Effort & Inspection: normal respiratory effort, able to speak in complete sentences and no respiratory distress Auscultation: clear to auscultation bilaterally Cardio: Jugular venous distension: no JVD Rate: regular rate Rhythm: regular rhythm Skin: General skin exam: normal color and no rashes or lesions noted Neuro: General: oriented to person, oriented to place and oriented to time Cranial nerves: Yes Equal, round and reactive pupils present Extrem: General: normal to inspection Course Course Emergency Course: Ordered labs, EKG, CXR, nitro and aspirin. EKG showed NSR with a rate of 73, normal axis and no ST elevation/depression Pain went from 8 down to a 2 with nitroglycerin. XR chest 1V portable INDICATION:chest pressure . REFERENCE: None FINDINGS: A single AP of the chest demonstrates normal heart size. There are interstitial and groundglass opacities bilaterally left greater than right. There is no evidence of pneumothorax or pleural effusion. IMPRESSION: Interstitial groundglass opacities bilaterally may represent pulmonary congestion. She continued to have slight chest pressure after GI cocktail. Given multiple risk factors will admit overnight for observation Vital Signs Vital signs: Vital Signs Pulse Rate 75 11/24/24 17:58 Temperature 98.0 F 11/24/24 17:59 Pulse Rate 80 11/24/24 18:46 Respiratory Rate 19 11/24/24 18:46 Blood Pressure 99/82 L 11/24/24 18:46 Pulse Oximetry 95 11/24/24 18:46 Oxygen Delivery Room Air 11/24/24 18:31 Medical Decision Making Vital Signs Vital Signs: Vital Signs Pulse Rate 75 11/24/24 17:58 Temperature 98.0 F 11/24/24 17:59 Pulse Rate 80 11/24/24 18:46 Respiratory Rate 19 11/24/24 18:46 Blood Pressure 99/82 L 11/24/24 18:46 Pulse Oximetry 95 11/24/24 18:46 Oxygen Delivery Room Air 11/24/24 18:31 Lab Data 11/24/24 18:26 11/24/24 18:26 Labs: Lab Results 11/24/24 11/24/24 Range/Units 18:26 18:38 WBC 8.9 (4.8-10.8) K/mm3 RBC 4.27 (4.20-5.40) M/mm3 Hgb 12.0 (12.0-15.0) g/dL Hct 38.1 (35.0-49.0) % MCV 89.2 (78.0-102.0) fL MCH 28.1 (27.0-31.0) pg MCHC 31.5 L (32-36) g/dL RDW 13.3 (11.6-14.4) % Plt Count 285 (150-420) K/mm3 MPV 10.3 (9.2-11.8) fl Immature Gran % (Auto) 0.3 H (0.0-0.0) % Neut % (Auto) 67.4 (50.0-70.0) % Lymph % (Auto) 23.6 (18.0-42.0) % [place] % (Auto) 5.7 (2.0-11.0) % Eos % (Auto) 2.7 (1.0-6.0) % Baso % (Auto) 0.3 (0.0-1.0) % Lymph # (Auto) 2.10 (1.10-4.50) K/mm3 [place] # (Auto) 0.51 (0.10-0.90) K/mm3 Eos # (Auto) 0.24 (0.02-0.50) K/mm3 Baso # (Auto) 0.03 (0.00-0.10) K/mm3 Abs Immat Gran (auto) 0.03 H (0.00-0.00) K/mm3 Absolute Neuts (auto) 5.99 (1.70-7.20) K/mm3 Absolute Nucleated RBC 0.00 (0.00-0.00) K/mm3 Nucleated RBC % 0.0 (0-0.0) % Sodium 139 (137-145) mmol/L Potassium 3.9 (3.4-5.0) mmol/L Chloride 107 (98-107) mmol/L Carbon Dioxide 22 (22-30) mmol/L Anion Gap 10 (4-12) mmol/L BUN 8 (7-17) mg/dL Creatinine 0.51 L (0.7-1.0) mg/dL Estim Creat Clear Calc 135 ml/min Estimated GFR > 60 (59 - ) Glucose 132 H (65-110) mg/dL Calculated Osmolality 288 (285-295) mOsm/kg Calcium 9.0 (8.4-10.2) mg/dL Magnesium 1.8 (1.6-2.3) mg/dL Total Bilirubin 0.5 (0.2-1.3) mg/dL AST 30 (14-36) U/L ALT 27 (6-35) U/L Alkaline Phosphatase 103 (38-126) U/L Troponin I Pending NT-Pro-B Natriuret Pep Pending Total Protein 8.0 (6.3-8.2) g/dL Albumin 4.1 (3.5-5.1) g/dL Lipase 71 (23-300) U/L Influenza A (RT-PCR) Pending Influenza B (RT-PCR) Pending RSV (RT-PCR) Pending SARS-CoV-2 RNA (RT-PCR) Pending Discharge Plan Discharge Clinical Impression: Chest pain Qualifiers: Chest pain type: unspecified Qualified Code(s): R07.9 - Chest pain, unspecified Patient Disposition: Acute Care [facility] Condition: Serious Instructions: Antibiotic Form Patient Language: [place] Prescriptions: No Action omeprazole magnesium [Prilosec OTC] 20 mg Tablet,Delayed Release (Dr/Ec) 20 mg PO DAILY lisinopril 40 mg tablet 40 mg PO DAILY olanzapine 10 mg tablet 10 mg PO HS fluoxetine [Prozac] 40 mg capsule 20 mg PO BID atorvastatin 40 mg tablet 60 mg PO DAILY metformin 500 mg tablet extended release 24 hr 500 mg PO BID topiramate 50 mg tablet 50 mg PO DAILY cyclobenzaprine 10 mg tablet 10 mg PO TID PRN (Reason: muscle spasm) Qty: 14 0RF naproxen 500 mg tablet 500 mg PO BID Qty: 14 0RF Rx Instructions: take with meals atorvastatin 20 mg tablet 20 mg PO DAILY multivitamin with minerals Tablet 1 tablet PO DAILY albuterol sulfate 90 mcg/actuation HFA aerosol inhaler 2 puff INHALATION Q4H PRN (Reason: Wheezing) Qty: 1 0RF alprazolam 1 mg tablet 1 mg PO BID PRN (Reason: Anxiety) aspirin 81 mg Tablet,Delayed Release (Dr/Ec) 81 mg PO QAM Qty: 30 0RF lidocaine 5 % adhesive patch,medicated 1 patch topical DAILY PRN (Reason: pain) Qty: 15 0RF Rx Instructions: leave on most painful area for up to 12 hrs Follow-up/Referrals: Lea,Herb Liang NP [Primary Care Provider, Family Practice]
[2024-11-24] MEDS: NITROGLYCERIN SL 0.4 MG TABLET SUBLINGUAL (18:23)
[2024-11-24 18:32] LABS: Hematocrit 38.1 % (35.0-49.0); Hemoglobin 12.0 g/dL (12.0-15.0); Immature Granulocyte Percent A 0.3 % (0.0-0.0); Lymphocytes Absolute Auto 2.10 K/mm3 (1.10-4.50); Mean Corpuscular HGB Conc 31.5 g/dL (32-36); Mean Corpuscular Hemoglobin 28.1 pg (27.0-31.0); Mean Corpuscular Volume 89.2 fL (78.0-102.0); Nucleated Red Blood Cells Absolute Auto 0.00 K/mm3 (0.00-0.00); Nucleated Red Blood Cells Perc 0.0 % (0-0.0); Platelet Count Result 285 K/mm3 (150-420); Red Blood Count 4.27 M/mm3 (4.20-5.40); White Blood Count 8.9 K/mm3 (4.8-10.8)
--- NOTE | 2024-11-24 18:41 | PC.NURSE ---
Covid culture sent to lab
[2024-11-24] MEDS: ASPIRIN 81 MG CHEWABLE TABLET 324 MG PO (18:44)
[2024-11-24 18:45] LABS: Alanine Aminotransferase 27 U/L (6-35); Albumin Level 4.1 g/dL (3.5-5.1); Alkaline Phosphatase 103 U/L (38-126); Anion Gap 10 mmol/L (4-12); Aspartate Amino Transferase 30 U/L (14-36); Bilirubin,Total 0.5 mg/dL (0.2-1.3); Blood Urea Nitrogen 8 mg/dL (7-17); Calcium 9.0 mg/dL (8.4-10.2); Carbon Dioxide 22 mmol/L (22-30); Chloride 107 mmol/L (98-107); Estimated CRCL calculation 135 ml/min; Estimated Glomerular Filt Rate > 60; Glucose 132 mg/dL (65-110); Lipase 71 U/L (23-300); Magnesium 1.8 mg/dL (1.6-2.3); Osmolality Calculated 288 mOsm/kg (285-295); Potassium 3.9 mmol/L (3.4-5.0); Sodium 139 mmol/L (137-145); Total Protein 8.0 g/dL (6.3-8.2)
[2024-11-24 18:56] LABS: NT Pro B Type Natriuretic Pept < 20 pg/mL (19.9-100); Troponin I < 0.012 ng/mL (0.000-0.034)
--- NOTE | 2024-11-24 19:00 | PC.NURSE ---
Assumed care of pt from GONZALO Díaz. Pt resting comfortably at this time. Awaiting further orders pt reports pain is minimal at this time. Spouse at bedside. No new needs voiced. Call light in reach. Side rail up 02/06. Table at bedside.
--- NOTE | 2024-11-24 19:00 | PC.NURSE ---
report to james. medina. all questions answered.
--- OUTSIDE RECORDS SUMMARY | 2024-11-24 19:13 | XMS_ITS | Patient Health Record ---
Author Organization [facility] Address [address] [facility] [address] [place] [address] Care Team Providers Care Rewinder Name Role Phone Arsalan Carreno Unavailable [phone] Reason For Referral No Information Plan Of Treatment No Information
--- OUTSIDE RECORDS SUMMARY | 2024-11-24 19:13 | XMS_ITS | Clinical Summary ---
Author Organization [facility] Address [address] [facility], [place] [address] Phone Care Team Providers Care Breaker Hand Name Role Phone Rhianna Shepard EVA Primary [...] of 3 - 19+ 3-dose series) 1985 Cologuard 05/03/2011 Colonoscopy 05/03/2011 Colorectal Cancer Screening 05/03/2011 Immunochemical Fecal Occult Blood 05/03/2011 Zoster Immunization (1 of 2) 2016 Mammogram 11/17/2020 11/18/2019, 11/18/2019 Influenza Immunization (#1) 2024 12/0 05/2023, 02/17/2023, 11/01/2018 Respiratory Syncytial Virus (RSV) Immunization (Adult) (1 - 1-dose 75+ series) 2041 DTaP/Tdap/Td Immunization Discontinued 12/07/2023, 08/2022 TdaP Immunization Completed 12/07/2023, 03/14/2022 Pneumococcal Immunization (50+ years) Completed 01/09/2024 Pneumococcal Immunization Combined Discontinued 01/09/2024 SARS-COV-2 Immunization Completed 01/09/20, 02/09/2021, 06/29/2020, Additional history exists Human Papillomavirus (HPV) Immunization Aged Out No longer eligible based on patient's age to complete this topic Meningococcal Immunization (ACWY) Aged Out No longer eligible based on patient's age to complete this topic Rotavirus Immunization Aged Out No lo nger eligible based on patient's age to complete this topic Insurance MEDICAID [employer] Care Teams Breaker Hand Relationship Specialty Start Date End Date Rhianna Shepard PAC [address] [place], [place] [id number] PCP - General Advanced Practice Nurse 07/02/23
--- OUTSIDE RECORDS SUMMARY | 2024-11-24 19:13 | XMS_ITS | Clinical Summary ---
Author Organization [facility] Address [facility] [place] [address] Care Team Providers Care Infrastructure Developer Name Role Phone Rhianna Shepard Primary Care Provider [phone] Allergies Active Allergy Reactions Criticality Noted Date [...] 2016 Mammogram Screening 11/17/2021 11/18/2019 COVID-19 Vaccine ( - 2024-2 6 season) 2024 Influenza Adult (#1) 2024 Hepatitis A Vaccines Aged Out No long er eligible based on patient's age to complete this topic Meningococcal B Vaccine Aged Out No l [...] Most Recently Relevant to Health Maintenance [place] [address] [place] [address] Care Teams Infrastructure Developer Relationship Specialty Start Date End Date Rhianna Shepard PA [address] [place] [address] PCP - General PHYSICIAN TAPEMAN 11/18/19
--- OUTSIDE RECORDS SUMMARY | 2024-11-24 19:13 | XMS_ITS | Encounter Summary ---
Author Organization [facility] Address [facility] [place] [address] Care Team Providers Care Training Facilitator Name Role Phone Rhianna Shepard Primary Care Provider [phone] Encounter Details Date Type Department Care Team (Late st Contact Info) Description 07/13/2018 Abstract [facility]FL CONVERSION [address] [place] [address] , Generic Conversion, Social History Tobacco Use [...] on filedocumented in this encounter Care Teams Training Facilitator Relationship Specialty Start Date End Date Rhianna Shepard PA [address] [place] [address] PCP - General PHYSICIAN VENEER CUTTER 11/18/19 documented as of this encounter
--- OUTSIDE RECORDS SUMMARY | 2024-11-24 19:13 | XMS_ITS | Clinical Summary ---
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
--- OUTSIDE RECORDS SUMMARY | 2024-11-24 19:13 | XMS_ITS | Clinical Summary ---
Author Organization [facility] Address [address] [place] [address] Care Team Providers Care Pipe Line Walker Name Role Phone Herb Tate DEPORTATION EXAMINER-DB2 DBA Primary Care Provider [phone] Source Comments [facility],non-owned Affiliates and Associated Physician Practices is amultiple site organization consisting of ambulatory clinics and hospital sitesin [place], [place], [place] and [place]. This disclosure is being madepursuant to the Care Everywhere program and may not contain all information available regarding this patient. Last updated 17.[employer] [facility] Allergies No known active allergies Medications * Be aware that medications may not be up to date on this document. Alwaysverify current medications with the patient. ALPRAZolam (Xanax) 1 MG tablet Take 1 (one) tablet by mouth 3 times daily as needed for Anxiety Active topiramate (Topamax) 50 MG tablet Take 1 (one) tablet by mouth once daily Active metFORMIN ER 24hr (Glucophage XR) 500 MG tablet Take 1 (one) tablet by mouth 2 times daily Active OLANZapine (ZyPREXA) 10 MG tablet Take 1 (one) tablet by mouth at bedtime Active omeprazole (PriLOSEC) 20 MG capsule Take 1 (one) capsule by mouth daily before breakfast Active atorvastatin (Lipitor) 40 MG tablet Take 1.5 (one and one-half) tablets by mouth at bedtime Active FLUoxetine (PROzac) 20 MG capsule Take 1 (one) capsule by mouth Every morning and lunchtime Active lisinopril (Prinivil; Zestril) 40 MG tablet Take 1 (one) tablet by mouth once daily Active Active Problems Problem Noted Date Diagnosed Date Right sided weakness 11/15/2024 Dysarthria 11/15/2024 Acute respiratory insufficiency 11/15/2024 Electrolyte imbalance 11/15/2024 Numbness and tingling of both legs 11/15/2024 Weakness 11/14/2024 Cerebrovascular accident (CVA), unspecified mech anism 11/14/2024 Encounters Date Type Department Care Team Description 11/14/2024 7:37 PM CDT - 11/16/2024 5:57 PM CDT Hospital Encounter [facility] [address] [place] [address] Dustin Singh MD Edgell, Randall C, MD Neurology Discharge Disposition: Home or Self Care 11/14/2024 Travel from Last 3 Months Social History Tobacco Use Types Packs/Day Years Used Date Smoking Tobacco: Former Cigarettes Q uit: 11/2024 Smokeless Tobacco: Never Tobacco Cessation:Counseling Given: No Alcohol Use Standard Drinks/Week Comments Never 0 (1 standard drink = 0.6 oz pur e alcohol) PHQ-2 Answer Date Recorded Patient Health Questionnaire-2 Score 0 11/16/2024 AUDIT-C Answer Date Recorded Q1: How often do you have a drink containing alcohol? Never 11/15/2024 Q2: How many drinks containi ng alcohol do you have on a typical day when you are drinking? Patient does not drink Q3: How often do you have si x or more drinks on one occasion? Never 11/15/2024 Overall Financial Resource Strain (CARDIA) Answe r Date Recorded How hard is it for you to pa y for the very basics like food, housing, medical care, and heating? Not hard at all 11/15/2024 [facility] Occupat ional Health - Occupational Stress Questionnaire Answer Date Recorded Do you feel stress - tense, restless, nervous, or anxious, or unable to sleep at night because your mind is troubled all the time - these days? Not at all 11/15/2024 Hunger Vital Sign Answer Date Recorded Within the past 12 months, y ou worried that your food would run out before you got the money to buy more. Never true 11/16/19 25 Within the past 12 months, t he food you bought just didn't last and you didn't have money to get more. Never true 11/15/2024 PRAPARE - Transportation Answer Date Re corded In the past 12 months, has l ack of transportation kept you from medical appointments or from getting medications? No 11/05 In the past 12 months, has l ack of transportation kept you from meetings, work, or from getting things needed for daily living? No 11/15/2024 Housing Stability Vital Sign Answer Peter e Recorded In the last 12 months, was t here a time when you were not able to pay the mortgage or rent on time? No 11/15/2024 In the past 12 months, how m any times have you moved where you were living? 1 11/15/2024 At any time in the past 12 m [facility], were you homeless or living in a half-way (including now)? 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 Gender Identity Not on file Sexual Orientation Not on file Last Filed Vital Signs Vital Sign Reading Time Taken Comments Blood Pressure 125/63 11/16/2024 5:00 PM CDT Pulse 72 11/16/2024 5:00 PM CDT Temperature 36.7 C (98 F) 11/16/2024 4:00 PM CDT Respiratory Rate 20 11/16/2024 5:00 PM CDT Oxygen Saturation 93% 11/16/2024 5:00 PM CDT Inhaled Oxygen Concentration - - Weight 122.8 kg (270 lb 11.6 oz) 11/15/2024 4:00 AM CDT Height 167.6 cm (5' 6) 11/14/2024 11:1 8 PM CDT Body Mass Index 43.7 11/14/2024 11:18 PM CDT Plan of Treatment Upcoming Encounters Date Type Department Care Team (Late st Contact Info) Description 11/28/2024 10:00 AM CDT Office Visit [facility] - Cardiology [address], [facility] [address] [place] [address] Sussy Kaur MD [address] [place], [place] [id number] Health Maintenance Due Date Last Done Comments COLOGUARD (AGES 45-75) - COLON CA SCREENING 1965 COLON MONITORING 1966 COLONOSCOPY - COLON CA SCREENING 1966 CT COLONOGRAPHY - COLON CA SCREENING 1965 Colorectal Cancer Screening 1966 FIT - COLON CA SCREENING 1966 FLEX SIG - COLON CA SCREENING 1966 HIV SCREENING 1981 HEPATITIS C SCREENING 04/27/1984 DTAP/TDAP/TD VACCINES (1 - Tdap) 1985 HEPATITIS B VACCINE (1 of 3 - 19+ 3-dose series) 1985 PNEUMOCOCCAL VACCINE 50+ (1 of 2 - PCV) 1985 PAP SMEAR 05/03/1987 ZOSTER VACCINE (1 of 2) 2016 MAMMOGRAM 11/17/2021 11/18/2019, 11/18/2019 DEPRESSION SCREENING 02/06/2024 INFLUENZA VACCINE (#1) 2024 , 02/17/2023, 11/01/2018 COVID-19 VACCINE Completed 01/09/2024, 06/2021, 06/29/2020, Additional history exists HIB VACCINE Aged Out No longer eligi ble based on patient's age to complete this topic HPV VACCINE Aged Out No longer eligi ble based on patient's age to complete this topic MENINGOCOCCAL (Group B) VACCINE SHARED DECISION-MAKING Aged Out No longer eligible based on patient's age to complete this topic MENINGOCOCCAL GROUPS A/C/Y/W VACCINE Aged Out No longer eligible based on patient's age to complete this topic Procedures Procedure Name Priority Date/Time Associated Diagnosis Comments GLUCOSE - POINT OF CARE Routine 11/16/2024 11:59 AM CDT GLUCOSE - POINT OF CARE Routine 11/16/2024 8:20 AM CDT GLUCOSE - POINT OF CARE Routine 11/16/2024 6:42 AM CDT CBC W/O DIFFERENTIAL Routine 11/16/2024 4:45 AM CDT BASIC METABOLIC PANEL (CALCIUM TOTAL) Routine 11/16/2024 4:45 AM CDT HEMOGLOBIN A1C Routine 11/16/2024 4:45 AM CDT GLUCOSE - POINT OF CARE Routine 11/15/2024 9:47 PM CDT GLUCOSE - POINT OF CARE Routine 11/15/2024 5:[address] HEAD WO CONTRAST Routine 11/15/2024 5 :08 PM CDT Cerebrovascular accident (CVA), unspecified mechanism (HCC) ECHO COMPLETE W CONTRAST W BUBBLE STUDY Routine 11/15/2024 10:35 AM CDT Cerebrovascular accident (CVA), unspecified mechanism (HCC) GLUCOSE - POINT OF CARE Routine 11/15/2024 9:16 AM CDT MRI BRAIN WO CONTRAST Routine 11/15/2024 7:14 AM CDT Cerebrovascular accident (CVA), unspecified mechanism (HCC) TROPONIN-I HIGH SENSITIVE REFLEX 1HOUR Timed 11/14/2024 11:10 PM CDT LIPID PROFILE STAT 11/14/2024 11:10 PM CDT CBC W/O DIFFERENTIAL STAT 11/14/2024 11:10 PM CDT BASIC METABOLIC PANEL (CALCIUM TOTAL) STAT 11/14/2024 11:10 PM CDT HEMOGLOBIN A1C Add on 11/14/2024 11:10 PM CDT TROPONIN-I HIGH SENSITIVE BASELINE + 1HR STAT 11/14/2024 9:27 PM CDT XR CHEST 1VW PORTABLE STAT 11/14/2024 8:37 PM CDT Cerebrovascular accident (CVA), unspecified mechanism (HCC) TROPONIN-I HIGH SENSITIVE STAT 11/14/2024 8:14 PM CDT PTT STAT 11/14/2024 8:14 PM CDT PT-INR STAT 11/14/2024 8:14 PM CDT COMPREHENSIVE METABOLIC PANEL STAT 11/14/2024 8:14 PM CDT CBC W AUTO DIFFERENTIAL STAT 11/14/2024 8:[address] ANGIO BRAIN NECK STROKE STAT 11/14/2024 8:[address] BRAIN STROKE STAT 11/14/2024 7:43 PM CDT Weakness from Last 3 Months Results * (ABNORMAL) GLUCOSE - POINT OF CARE (11/16/2024 11:59 AM CDT) Only the most recent of6 resultswithin the time period is included. [facility] Glucose WB/POC 106(H) 70 - 99 mg/dL 11/16/2024 12:03 PM CDT [facility] Specimen Type Arterial/C apillary 11/16/2024 12:[address] [facility] Blood BLOOD SPECIMEN / Unknown 11/16/2024 11:59 AM CDT 11/16/2024 12:03 PM CDT Bryn Sanchez MD LAB - POINT OF CARE ORDERABL ES Final Result [facility] [address] [place] [address], [facility] [phone] * HEMOGLOBIN A1C (11/16/2024 4:45 AM CDT) Only the most recent of2 resultswithin the time period is included. [facility] Hemoglobin A1c 5.6 <=5.6 % 11/16/2024 8:51 AM CDT [facility] Estimated Average Glucose 114 mg/dL 11/16/2024 8:51 AM CDT [facility] Comment: HbA1c Interpretation: Normal : < 5.7% Pre-diabetes: 5.7-6.4% Diabetes: Equal to or greater than 6.5% Test results diagnostic of diabetes should be repeated for confirmation. Treatment target values recommended by ADA and other clinical organizations should be used to evaluate metabolic control in patients. Reference: [place] [employer], Standards of Care in Diabetes -2020 In patients 70 years and older consider HbA1c target range of 7.0-7.5% (Reference: Ko Escoto et al. MARGARITADA. 2012) The Sebia assay for the measurement of HbA1c is a National Glycohemoglobin Standardization Program (NGSP) certified method. Blood BLOOD SPECIMEN / Unknown Venipuncture / Unknown 11/16/2024 4:45 AM CDT 11/16/2024 5:20 AM CDT Jose Hill DEPORTATION EXAMINER-DB2 DBA LAB - CHEMISTRY ORDERABLE S Final Result [address] [address], [facility] [phone] * (ABNORMAL) CBC W/O DIFFERENTIAL (11/16/2024 4:45 AM CDT) Only the most recent of2 resultswithin the time period is included. WBC 7.1 4.0 - 10.7 x10E9/L 11/16/2024 5:17 AM [facility] RBC Count 4.25 3.90 - 5.20 x10E12/L 11/16/2024 5:17 AM [facility] Hemoglobin 12.0 11.9 - 15.8 g/dL 11/16/2024 5:17 AM [facility] Hematocrit 38.1 34.8 - 46.1 % 11/16/2024 5:17 AM [facility] MCV 89.6 80.0 - 98.0 fL 11/16/2024 5:17 AM [facility] MCH 28.2 26.7 - 33.6 pg 11/16/2024 5:17 AM [facility] MCHC 31.5(L) 31.7 - 36.3 g/dL 11/16/2024 5:17 AM [facility] RDW-CV 13.9 11.3 - 14.8 % 11/16/2024 5:17 AM [facility] Platelet Count 274 150 - 420 x10E9/L 11/16/2024 5:17 AM [facility] MPV 9.8 7.8 - 11.4 fL 11/16/2024 5:17 AM [facility] Blood BLOOD SPECIMEN / Unknown Venipuncture / Unknown 11/16/2024 4:45 AM CDT 11/16/2024 4:54 AM CDT us Dustin Singh MD LAB - HEMATOLOGY ORDERABLES Chandrika coombs Result [facility] [address] [place] [address], [facility] [phone] * (ABNORMAL) BASIC METABOLIC PANEL (CALCIUM TOTAL) (11/16/2024 4:45 AM CDT) Only the most recent of2 resultswithin the time period is included. BUN 11 7 - 26 mg/dL 11/16/2024 5:20 AM [facility] Creatinine 0.51(L) 0.56 - 0.96 mg/dL 11/16/2024 5:20 AM [facility] Sodium 142 136 - 145 mmol/L 11/16/2024 5:20 AM [facility] Potassium 4.1 3.5 - 4.5 mmol/L 11/16/2024 5:20 AM [facility] Chloride 110(H) 98 - 107 mmol/L 11/16/2024 5:20 AM [facility] CO2 24 22 - 29 mmol/L 11/16/2024 5:20 AM [facility] Glucose 112(H) 70 - 99 mg/dL 11/16/2024 5:20 AM [facility] Calcium 8.4 8.4 - 10.2 mg/dL 11/16/2024 5:20 AM [facility] Anion Gap 8 6 - 16 11/16/2024 5:20 AM [facility] BUN/Creatinine Ratio 22 7 - 23 11/16/2024 5:20 AM CDT [facility] [employer] Osmolality Calculated 294 275 - 295 mOsm/kg 11/16/2024 5:[address] [facility] eGFR by CKD-EPI >90 >=90 mL/min/1.7 3 m2 11/16/2024 5:[address] [facility] Comment:Estimated Glomerular Filtration Rate (eGFR) calculated using the CKD-EPI Creatinine Equation (2020), per the National Kidney Foundation and [place] Society of Nephrology recommendations. Blood BLOOD SPECIMEN / Unknown Venipuncture / Unknown 11/16/2024 4:45 AM CDT 11/16/2024 4:53 AM CDT us Dustin Singh MD LAB - CHEMISTRY ORDERABLES Final Result [facility] [address] [place] [address], [facility] [phone] * CT HEAD NON CONTRAST (11/15/2024 5:08 PM CDT) Anatomical Region Laterality Modality Head Computed Tomogra phy 11/15/2024 7:27 PM CDT Impressions 11/15/2024 8:38 PM CDT IMPRESSION: 1.No acute intracranial hemorrhage, midline shift, or significant mass effect. Report was dictated by Jamison Camp MD, ([facility] resident) 11/15/2024 7:27 PM > Dictated by Jamison Camp MD 11/15/2024 7:27 PM > Dictated by Underwriting Analyst I, Ana Laura Mahan MD have personally reviewed and interpreted this examination/study. > Interpreting Provider: Ana Laura Mahan MD on 11/15/2024 8:38 PM Narrative 11/15/2024 8:38 PM CDT PROCEDURE: CT HEAD WO CONTRAST, DATE/TIME OF EXAM: 11/15/2024 5:09 PM, LOCATION [facility] INDICATION: I63.9: Cerebrovascular accident (CVA), unspecified mechanism (HCC) EXAMINATION: Computed tomography (CT) of the head without contrast ADDITIONAL CLINICAL INFORMATION: Ordering Provider Reason For Exam: Post-TNK monitoring Technologist Note: None. Additional: None. TECHNIQUE: CT of the head was performed without contrast according to standard protocol. CT dose reduction technique was used, including Automated Exposure Control. Intravenous contrast was administered in the last 24 hours which may partially obscure abnormalities this noncontrasted scan. COMPARISON: CT head brain stroke protocol dated 11/14/2024. FINDINGS: No acute intra- or extra-axial fluid collections are identified. There is mild cerebral volume loss with associated ex vacuo ventricular dilatation. The basilar cisterns are patent. No mass effect or midline shift is seen. There is a chronic infarct in the left cerebellar hemisphere, better seen on the prior MRI. The frank-white matter differentiation is normal. Periventricular white matter hypoattenuation is indicative of chronic small vessel ischemic disease. There is vascular calcification of the carotid siphons. No acute calvarial fracture is identified. The orbits appear normal. There is mild paranasal sinus disease. The mastoid air cells are clear. No soft tissue abnormality is identified. Procedure Note Ana Laura Mahan MD - 11/15/2024 PROCEDURE: CT HEAD WO CONTRAST, DATE/TIME OF EXAM: 11/15/2024 5:09 PM, LOCATION [facility] INDICATION: I63.9: Cerebrovascular accident (CVA), unspecified mechanism (HCC) EXAMINATION: Computed tomography (CT) of the head without contrast ADDITIONAL CLINICAL INFORMATION: Ordering Provider Reason For Exam: Post-TNK monitoring Technologist Note: None. Additional: None. TECHNIQUE: CT of the head was performed without contrast according to standard protocol. CT dose reduction technique was used, including Automated Exposure Control. Intravenous contrast was administered in the last 24 hours which may partially obscure abnormalities thisnoncontrasted scan. COMPARISON: CT head brain stroke protocol dated 11/14/2024. FINDINGS: No acute intra- or extra-axial fluid collections are identified. Thereis mild cerebral volume loss with associated ex vacuo ventriculardilatation. The basilar cisterns are patent. No mass effect or midline shift isseen. There is a chronic infarct in the left cerebellar hemisphere, betterseen on the prior MRI. The frank-white matter differentiation is normal. Periventricular white matter hypoattenuation is indicative of chronicsmall vessel ischemic disease. There is vascular calcification of the carotid siphons. No acute calvarial fracture is identified. The orbits appear normal. There is mild paranasal sinus disease. The mastoid air cells are clear. No soft tissue abnormality is identified. IMPRESSION: 1.No acute intracranial hemorrhage, midline shift, or significant mass effect. Report was dictated by Jamison Camp MD, ([facility] resident) 11/15/2024 7:27PM > Dictated by Jamison Camp MD 11/15/2024 7:27 PM > Dictated by Underwriting Analyst I, Ana Laura Mahan MD have personally reviewed and interpretedthis examination/study. > Interpreting Provider: Ana Laura Mahan MD on 11/15/2024 8:38 PM us Dustin Singh MD CT ORDERABLES Final Result * ECHO COMPLETE W CONTRAST W BUBBLE STUDY (11/15/2024 10:35 AM CDT) AV area index 1.234 cm /m SSM CV FUJI PACS LA vol index 0.019 l/m SSM CV FUJI PACS Dimensionless Index 0.748 unitless SSM CV FUJI PACS Myocardial strain charge 2 unitless SSM CV FUJI PACS IVSd 2D 1.13 cm SSM CV FUJ I PACS LVIDd 3.981 cm SSM CV FUJ I PACS LVIDs 2.831 cm SSM CV FUJ I PACS LVOT diam 2.27 cm SSM CV FUJ I PACS LVPWd 1.185 cm SSM CV FUJ I PACS LV biplane EF 62.413 % SSM CV FUJI PACS LV A2C EF 58.211 % SSM CV FUJ I PACS LV A4C EF 66.353 % SSM CV FUJ I PACS LV EDV A2C 77.806 ml SSM CV FU JI PACS LV EDV A4C 81.88 ml SSM CV FU JI PACS LV ESV A2C 32.514 ml SSM CV FU JI PACS LV ESV A4C 27.55 ml SSM CV FU JI PACS LVOT pk grad 3.637 mmHg SSM CV FUJI PACS LVOT pk ja 95.356 cm/s SSM CV F UJI PACS LVOT VTI 19.431 cm SSM CV FUJ I PACS RV-dow basal diam 2.745 cm SSM CV FUJI PACS RVIDd 3.357 cm SSM CV FUJ I PACS RVOT diam Doppler 1.999 cm SS M CV FUJI PACS RVOT pk ja 87.224 cm/s SSM CV F UJI PACS RVOT VTI 16.789 cm SSM CV FUJ I PACS LA size 4.129 cm SSM CV FUJ I PACS LA vol BP 46.15 ml SSM CV FUJ I PACS RA area 10.25 cm SSM CV FUJI PACS AV area pk ja 2.95 cm SSM CV FUJI PACS AV area cont VTI 3.027 cm SSM CV FUJI PACS AV pk grad 6.844 mmHg SSM CV FU JI PACS AV mn grad 3.358 mmHg SSM CV FU JI PACS AV pk ja 130.805 cm/s SSM CV FUJ I PACS AV VTI 25.982 cm SSM CV FUJ I PACS MV A pk ja 73.419 cm/s SSM CV F UJI PACS MV E pk ja 83.948 cm/s SSM CV F UJI PACS MV E' lateral ja 5.922 cm/s SS M CV FUJI PACS MV mn grad 0.801 mmHg SSM CV FU JI PACS MV VTI 20.203 cm SSM CV FUJ I PACS PV pk ja 99.299 cm/s SSM CV FUJ I PACS PV VTI 16.439 cm SSM CV FUJ I PACS TAPSE 1.91 cm SSM CV FUJ I PACS Ascending aorta 3.435 cm SSM CV FUJI PACS IVC Diam Expiration 1.644 cm SSM CV FUJI PACS Sinus of Valsalva 2.6 cm SS M CV FUJI PACS Anatomical Region Laterality Modality Ultrasound 11/15/2024 10:0 2 AM CDT Narrative 11/15/2024 12:16 PM CDT Summary * Technically difficult study. * The left ventricle is normal in size, with normal systolic function and an estimated ejection fraction of 62 % by biplane method of disks. Left ventricular wall motion is normal. * The left ventricular mass is normal with moderately increased wall thickness consistent with concentric remodeling. * The left ventricular diastolic function is consistent with grade I diastolic dysfunction and normal left atrial filling pressure. * Right ventricle is normal in size with normal systolic function. * Agitated saline contrast study at rest and with Valsalva is positive for a medium intracardiac shunt. Although, acoustic windows were difficult thus diminishing quality. Suggest MARY for further evaluation. * No hemodynamically significant valve disease. * Unable to assess pulmonary pressures due to a lack of tricuspid and pulmonic regurgitation. Patient Info Name: Palma Frost Age: 59 years : 1965 Gender: Female Ht: 66 in Wt: 270 lb BSA: 2.45 m2 HR: 75 bpm BP: 124 / 73 mmHg Heart Rhythm: Sinus Rhythm Exam Date: 11/15/2024 10:02 AM Patient Status: I/P Study Site: [facility] Primary Location: [facility] Info Technical Quality: Technically Difficult Exam Type: ECHO COMPLETE W CONTRAST W BUBBLE STUDY Indications I63.9 - Cerebrovascular accident (CVA), unspecified mechanism (HCC) Procedure(s) * A complete 2D, color Doppler, spectral Doppler, and M-Mode transthoracic echocardiogram was performed. Contrast/Agitated Saline Contrast / Saline: Definity Amount: 1.00 ml Administered By: Candelario Enriquez Reaction to Contrast: no Contrast / Saline: Agitated Saline Amount: 10.00 ml Reaction to Contrast: no Reason for Technically Difficult Study: body habitus, poor acoustic windows, lung interference Staff Referring Physician: Dustin Singh Ordering Provider: Dustin Singh Attending Physician: Dustin Singh Watch Adjuster: Candelario Enriquez Left Ventricle The left ventricle is normal in size. Left ventricular systolic function is normal with an estimated ejection fraction of 62 % by biplane method of disks. Left ventricular segmental wall motion is normal. The left ventricular diastolic function is consistent with grade I diastolic dysfunction and normal left atrial filling pressure. The left ventricular mass is normal with moderately increased wall thickness consistent with concentric remodeling. Right Ventricle The right ventricle is normal in size. Right ventricular systolic function is normal. Left Atrium The left atrium is normal in size with a left atrial volume index of 19 ml/m2 by BP MOD. Right Atrium The right atrium is normal in size. Atrial Septum Interatrial septum not well visualized by 2D imaging. Interatrial septum not well visualized. Agitated saline contrast study at rest and with Valsalva is positive for a medium intracardiac shunt. Although, acoustic windows were difficult thus diminishing quality. Suggest MARY for further evaluation. Aortic Valve The aortic valve is not well visualized and possibly trileaflet. There is no aortic valve stenosis. There is no aortic valve stenosis with a peak velocity of 1.3 m/s, mean gradient of 3 mmHg, and aortic valve area of 3.03 cm2. There is no aortic valve regurgitation. Pulmonic Valve The pulmonic valve is not well visualized. There is no pulmonic valve stenosis. There is no pulmonic regurgitation. Mitral Valve The mitral valve is not well visualized, but grossly normal. There is no mitral valve stenosis. There is no mitral valve regurgitation. Tricuspid Valve The tricuspid valve is not well visualized, but grossly normal. There is no tricuspid valve stenosis. There is trace tricuspid valve regurgitation. Unable to assess pulmonary pressures due to a lack of tricuspid and pulmonic regurgitation. Inferior Vena Cava The inferior vena cava is normal in size (< 2.1 cm). There is > 50% collapse of the IVC upon inspiration with an estimated right atrial pressure of 3 mmHg. Pericardium/Pleural There is no pericardial effusion. Aorta The aortic root at the sinus of Valsalva is normal in size. The ascending aorta is normal in size. Measurements Left Ventricular Outflow Tract Name Value Normal LVOT 2D LVOT Diameter 2.3 cm LVOT Area 4.0 cm2 LVOT Doppler LVOT Peak Velocity 1.0 m/s LVOT Peak Gradient 4 mmHg LVOT Mean Velocity 73.99 cm/s LVOT Mean Gradient 2 mmHg LVOT VTI 19.4 cm LVOT VTI/AV VTI Ratio 0.7 LVOT Stroke Volume 79 ml LVOT Stroke Volume Index 32 ml/m2 35-58 LVOT CO 5.9 l/min LVOT CI 2.4 l/min/m2 Pulmonic Valve Name Value Normal PV 2D RVOT Diameter (2D) 2.0 cm 1.7-2.7 RVOT Doppler RVOT Peak Velocity 0.9 m/s RVOT Peak Gradient 3 mmHg RVOT Mean Gradient 2 mmHg PV Doppler PV Peak Velocity 1.0 m/s PV Peak Gradient 4 mmHg PV Mean Gradient 2 mmHg PV Area (Cont Eq VTI) 3.21 cm2 PV Area Index (Cont Eq VTI) 1.31 cm2/m2 PV Area (Cont Eq Ja) 2.8 cm2 PV Area Index (Cont Eq Ja) 1.12 cm2/m2 Mitral Valve Name Value Normal MV Doppler MV Peak Gradient 2 mmHg MV Mean Gradient 1 mmHg MV DI (VTI) 1.04 MV Area (Cont Eq VTI) 3.89 cm2 MV Diastolic Function MV E Peak Velocity 0.8 m/sec MV A Peak Velocity 0.7 m/sec MV E/A 1.1 MV Decel Time (PW) 212 ms MV A Wave Duration 100 ms MV Annular TDI MV Septal e' Velocity 4 cm/s >=8 MV E/e' (Septal) 22 <=8 MV Lateral e' Velocity 6 cm/s >=10 MV E/e' (Lateral) 14 <=8 MV e' Average 5 cm/s MV E/e' (Average) 18 Tricuspid Valve Name Value Normal Estimated PAP/RSVP RA Pressure 3 mmHg <=5 TV Annular TDI TV Lateral Shalonda s' Velocity 10 cm/s 10-19 Aorta Name Value Normal Ascending Aorta Sinus of Valsalva Diameter 2.6 cm 2.4-3.6 Sinus of Valsalva Index 1.1 cm/m2 1.4-2.2 Asc Ao Diameter 3.4 cm 1.9-3.5 Asc Ao Diameter Index 1.4 cm/m2 1.0-2.2 Septae/Shunt/Generic Name Value Normal Qp/Qs Qp/Qs 0.7 Venous Name Value Normal IVC/SVC IVC Diameter 1.6 cm <=2.1 Aortic Valve Name Value Normal AV Doppler AV Peak Velocity 1.31 m/s AV Peak Gradient 7 mmHg AV Mean Gradient 3 mmHg AV VTI 26 cm AV Area (Cont Eq VTI) 3.03 cm2 >=2.00 AV Area (Cont Eq Ja) 2.95 cm2 AV DI (VTI) 0.75 AV DI (Ja) 0.73 AV Regurgitation 2D LVOT Area 4.05 cm2 Ventricles Name Value Normal LV Dimensions 2D/MM IVS Diastolic Thickness (2D) 1.1 cm 0.6-0.9 LVID Diastole (2D) 4.0 cm 3.8-5.2 LVPW Diastolic Thickness (2D) 1.2 cm 0.6-0.9 IVS Systolic Thickness (2D) 0.9 cm LVID Systole (2D) 2.8 cm 2.2-3.5 LVPW Systolic Thickness (2D) 1.2 cm LV Mass (2D Cubed) 96 g 67-162 LV Mass Index (2D Cubed) 39 g/m2 43-95 Relative Wall Thickness (2D) 0.60 <=0.42 LV Fractional Shortening/Ejection Fraction 2D/MM LV Fractional Shortening (2D) 29 % 27-45 LV EF (2D Teicholz) 56 % 54-74 LV Diastolic Volume (4C MOD) 82 ml LV EF (4C MOD) 66 % LV Diastolic Volume (2C MOD) 78 ml LV EF (2C MOD) 58 % LV Diastolic Volume (BP MOD) 80 ml 46-106 LV Diastolic Volume Index (BP MOD) 33 ml/m2 29-61 LV Systolic Volume (BP MOD) 30 ml 14-42 LV Systolic Volume Index (BP MOD) 12 ml/m2 8-24 LV EF (BP MOD) 62 % 54-74 LV Diastolic Length (4C) 7.3 cm LV Systolic Length (4C) 6.3 cm LV Stroke Volume (4C MOD) 54 ml RV Dimensions 2D/MM RVID Diastole (2D) 3.4 cm 2.5-3.5 RVID Systole (2D) 2.8 cm RV Basal Diastolic Dimension 2.7 cm 2.5-4.1 RV Diastolic Length (4C) 5.1 cm 5.9-8.3 TAPSE 1.9 cm >=1.7 Atria Name Value Normal LA Dimensions LA Dimension (2D) 4.1 cm 2.7-3.8 LA Dimen Index (2D) 1.7 cm/m2 LA Volume (BP MOD) 46 ml LA Volume Index (BP MOD) 19 ml/m2 16-34 RA Dimensions RA Area (4C) 10 cm2 <=18 RA Area (4C) Index 4 cm2/m2 Report Signatures Finalized by Ana Fallon on 11/15/2024 12:16 PM Procedure Note Ana Fallon, DO - 11/15/2024 Summary * Technically difficult study. * The left ventricle is normal in size, with normal systolic functionand an estimated ejection fraction of 62 % by biplane method of disks. Left ventricular wall motion is normal. * The left ventricular mass is normal with moderately increased wall thickness consistent with concentric remodeling. * The left ventricular diastolic function is consistent with grade I diastolic dysfunction and normal left atrial filling pressure. * Right ventricle is normal in size with normal systolic function. * Agitated saline contrast study at rest and with Valsalva is positivefor a medium intracardiac shunt. Although, acoustic windows were difficultthus diminishing quality. Suggest MARY for further evaluation. * No hemodynamically significant valve disease. * Unable to assess pulmonary pressures due to a lack of tricuspid and pulmonic regurgitation. Patient Info Name: Palma Frost Age: 59 years : 1965 Gender: Female Ht: 66 in Wt: 270 lb BSA: 2.45 m2 HR: 75 bpm BP: 124 / 73 mmHg Heart Rhythm: Sinus Rhythm Exam Date: 11/15/2024 10:02 AM Patient Status: I/P Study Site: [facility] Primary Location: [facility] EStudy Info Technical Quality: Technically Difficult Exam Type: ECHO COMPLETE W CONTRAST W BUBBLE STUDY Indications I63.9 - Cerebrovascular accident (CVA), unspecified mechanism (HCC) Procedure(s) * A complete 2D, color Doppler, spectral Doppler, and M-Modetransthoracic echocardiogram was performed. Contrast/Agitated Saline Contrast / Saline: Definity Amount: 1.00 ml Administered By: Candelario Enriquez Reaction to Contrast: no Contrast / Saline: Agitated Saline Amount: 10.00 ml Reaction to Contrast: no Reason for Technically Difficult Study: body habitus, poor acoustic windows, lung interference Staff Referring Physician: Dustin Singh Ordering Provider: Dustin Singh Attending Physician: Dustin Singh Watch Adjuster: Candelario Enriquez Left Ventricle The left ventricle is normal in size. Left ventricular systolic functionis normal with an estimated ejection fraction of 62 % by biplane method ofdisks. Left ventricular segmental wall motion is normal. The left ventricular diastolic function is consistent with grade I diastolic dysfunction andnormal left atrial filling pressure. The left ventricular mass is normal with moderately increased wall thickness consistent with concentricremodeling. Right Ventricle The right ventricle is normal in size. Right ventricular systolicfunction is normal. Left Atrium The left atrium is normal in size with a left atrial volume index of19 ml/m2 by BP MOD. Right Atrium The right atrium is normal in size. Atrial Septum Interatrial septum not well visualized by 2D imaging. Interatrial septumnot well visualized. Agitated saline contrast study at rest and with Valsalvais positive for a medium intracardiac shunt. Although, acoustic windowswere difficult thus diminishing quality. Suggest MARY for further evaluation. Aortic Valve The aortic valve is not well visualized and possibly trileaflet. Thereis no aortic valve stenosis. There is no aortic valve stenosis with a peakvelocity of 1.3 m/s, mean gradient of 3 mmHg, and aortic valve area of 3.03 cm2.There is no aortic valve regurgitation. Pulmonic Valve The pulmonic valve is not well visualized. There is no pulmonic valve stenosis. There is no pulmonic regurgitation. Mitral Valve The mitral valve is not well visualized, but grossly normal. There isno mitral valve stenosis. There is no mitral valve regurgitation. Tricuspid Valve The tricuspid valve is not well visualized, but grossly normal. There isno tricuspid valve stenosis. There is trace tricuspid valve regurgitation.Unable to assess pulmonary pressures due to a lack of tricuspid and pulmonic regurgitation. Inferior Vena Cava The inferior vena cava is normal in size (< 2.1 cm). There is > 50%collapse of the IVC upon inspiration with an estimated right atrial pressure of 3mmHg. Pericardium/Pleural There is no pericardial effusion. Aorta The aortic root at the sinus of Valsalva is normal in size. Theascending aorta is normal in size. Measurements Left Ventricular Outflow Tract Name Value Normal LVOT 2D LVOT Diameter 2.3 cm LVOT Area 4.0 cm2 LVOT Doppler LVOT Peak Velocity 1.0 m/s LVOT Peak Gradient 4 mmHg LVOT Mean Velocity 73.99 cm/s LVOT Mean Gradient 2 mmHg LVOT VTI 19.4 cm LVOT VTI/AV VTI Ratio 0.7 LVOT Stroke Volume 79 ml LVOT Stroke Volume Index 32 ml/m2 35-58 LVOT CO 5.9 l/min LVOT CI 2.4 l/min/m2 Pulmonic Valve Name Value Normal PV 2D RVOT Diameter (2D) 2.0 cm 1.7-2.7 RVOT Doppler RVOT Peak Velocity 0.9 m/s RVOT Peak Gradient 3 mmHg RVOT Mean Gradient 2 mmHg PV Doppler PV Peak Velocity 1.0 m/s PV Peak Gradient 4 mmHg PV Mean Gradient 2 mmHg PV Area (Cont Eq VTI) 3.21 cm2 PV Area Index (Cont Eq VTI) 1.31 cm2/m2 PV Area (Cont Eq Ja) 2.8 cm2 PV Area Index (Cont Eq Ja) 1.12 cm2/m2 Mitral Valve Name Value Normal MV Doppler MV Peak Gradient 2 mmHg MV Mean Gradient 1 mmHg MV DI (VTI) 1.04 MV Area (Cont Eq VTI) 3.89 cm2 MV Diastolic Function MV E Peak Velocity 0.8 m/sec MV A Peak Velocity 0.7 m/sec MV E/A 1.1 MV Decel Time (PW) 212 ms MV A Wave Duration 100 ms MV Annular TDI MV Septal e' Velocity 4 cm/s >=8 MV E/e' (Septal) 22 <=8 MV Lateral e' Velocity 6 cm/s >=10 MV E/e' (Lateral) 14 <=8 MV e' Average 5 cm/s MV E/e' (Average) 18 Tricuspid Valve Name Value Normal Estimated PAP/RSVP RA Pressure 3 mmHg <=5 TV Annular TDI TV Lateral Shalonda s' Velocity 10 cm/s 10-19 Aorta Name Value Normal Ascending Aorta Sinus of Valsalva Diameter 2.6 cm 2.4-3.6 Sinus of Valsalva Index 1.1 cm/m2 1.4-2.2 Asc Ao Diameter 3.4 cm 1.9-3.5 Asc Ao Diameter Index 1.4 cm/m2 1.0-2.2 Septae/Shunt/Generic Name Value Normal Qp/Qs Qp/Qs 0.7 Venous Name Value Normal IVC/SVC IVC Diameter 1.6 cm <=2.1 Aortic Valve Name Value Normal AV Doppler AV Peak Velocity 1.31 m/s AV Peak Gradient 7 mmHg AV Mean Gradient 3 mmHg AV VTI 26 cm AV Area (Cont Eq VTI) 3.03 cm2 >=2.00 AV Area (Cont Eq Ja) 2.95 cm2 AV DI (VTI) 0.75 AV DI (Ja) 0.73 AV Regurgitation 2D LVOT Area 4.05 cm2 Ventricles Name Value Normal LV Dimensions 2D/MM IVS Diastolic Thickness (2D) 1.1 cm 0.6-0.9 LVID Diastole (2D) 4.0 cm 3.8-5.2 LVPW Diastolic Thickness (2D) 1.2 cm 0.6-0.9 IVS Systolic Thickness (2D) 0.9 cm LVID Systole (2D) 2.8 cm 2.2-3.5 LVPW Systolic Thickness (2D) 1.2 cm LV Mass (2D Cubed) 96 g 67-162 LV Mass Index (2D Cubed) 39 g/m2 43-95 Relative Wall Thickness (2D) 0.60 <=0.42 LV Fractional Shortening/Ejection Fraction 2D/MM LV Fractional Shortening (2D) 29 % 27-45 LV EF (2D Teichsade) 56 % 54-74 LV Diastolic Volume (4C MOD) 82 ml LV EF (4C MOD) 66 % LV Diastolic Volume (2C MOD) 78 ml LV EF (2C MOD) 58 % LV Diastolic Volume (BP MOD) 80 ml 46-106 LV Diastolic Volume Index (BP MOD) 33 ml/m2 29-61 LV Systolic Volume (BP MOD) 30 ml 14-42 LV Systolic Volume Index (BP MOD) 12 ml/m2 8-24 LV EF (BP MOD) 62 % 54-74 LV Diastolic Length (4C) 7.3 cm LV Systolic Length (4C) 6.3 cm LV Stroke Volume (4C MOD) 54 ml RV Dimensions 2D/MM RVID Diastole (2D) 3.4 cm 2.5-3.5 RVID Systole (2D) 2.8 cm RV Basal Diastolic Dimension 2.7 cm 2.5-4.1 RV Diastolic Length (4C) 5.1 cm 5.9-8.3 TAPSE 1.9 cm >=1.7 Atria Name Value Normal LA Dimensions LA Dimension (2D) 4.1 cm 2.7-3.8 LA Dimen Index (2D) 1.7 cm/m2 LA Volume (BP MOD) 46 ml LA Volume Index (BP MOD) 19 ml/m2 16-34 RA Dimensions RA Area (4C) 10 cm2 <=18 RA Area (4C) Index 4 cm2/m2 Report Signatures Finalized by Ana Fallon on 11/15/2024 12:16 PM us Dustin Singh MD ECHO CUPID Final Result * MRI Brain Wo Contrast (11/15/2024 7:14 AM CDT) Anatomical Region Laterality Modality Head Magnetic Resonan ce 11/15/2024 1:35 PM CDT Impressions 11/15/2024 1:41 PM CDT IMPRESSION: 1. No acute infarct, intracranial mass lesion, or hemorrhage. 2. A single chronic lacunar infarct is noted in the left-sided cerebellum. > Interpreting Provider: Melida Blanchard MD on 11/15/2024 1:41 PM Narrative 11/15/2024 1:41 PM CDT PROCEDURE: MRI BRAIN WO CONTRAST DATE/TIME OF EXAM: 11/15/2024 7:14 AM CLINICAL INFORMATION: None relevant/not provided if blank. Indication: I63.9: Cerebrovascular accident (CVA), unspecified mechanism (HCC) Additional History: COMPARISON: Brain CT and CTA head and neck from yesterday. TECHNIQUE: MRI of the brain was performed without contrast. FINDINGS: Brain Volume: Normal for age. Parenchyma/Dura: No mass, acute infarct or hemorrhage. A single punctate focus of T2 hyperintensity is present in the right superior frontal gyrus (image 19, series 4), considered within normal limits for the patient's age. A single chronic lacunar infarct is noted in the left-sided cerebellum (image 5, series 9). Ventricles/Cisterns: No hydrocephalus. No abnormal extra-axial fluid collection or hemorrhage. Orbits: Symmetric and unremarkable. Sella Turcica: The pituitary gland, cavernous sinuses, suprasellar cistern and optic chiasm are unremarkable. IAC: Symmetric and unremarkable. Vasculature: Normal signal flow void is seen in the major arterial structures at the skull base. Sinuses: No acute appearing sinus disease. Bones: No focal pathologic appearing marrow signal changes. Craniocervical Junction: Normal. Other: None. Procedure Note Melida Blanchard MD - 11/15/2024 PROCEDURE: MRI BRAIN WO CONTRAST DATE/TIME OF EXAM: 11/15/2024 7:14 AM CLINICAL INFORMATION: None relevant/not provided if blank. Indication: I63.9: Cerebrovascular accident (CVA), unspecified mechanism (HCC) Additional History: COMPARISON: Brain CT and CTA head and neck from yesterday. TECHNIQUE: MRI of the brain was performed without contrast. FINDINGS: Brain Volume: Normal for age. Parenchyma/Dura: No mass, acute infarct or hemorrhage. A single punctate focus of T2 hyperintensity is present in the right superior frontalgyrus (image 19, series 4), considered within normal limits for the patient's age. A single chronic lacunar infarct is noted in the left-sidedcerebellum (image 5, series 9). Ventricles/Cisterns: No hydrocephalus. No abnormal extra-axial fluid collection or hemorrhage. Orbits: Symmetric and unremarkable. Sella Turcica: The pituitary gland, cavernous sinuses, suprasellarcistern and optic chiasm are unremarkable. IAC: Symmetric and unremarkable. Vasculature: Normal signal flow void is seen in the major arterial structures at the skull base. Sinuses: No acute appearing sinus disease. Bones: No focal pathologic appearing marrow signal changes. Craniocervical Junction: Normal. Other: None. IMPRESSION: 1. No acute infarct, intracranial mass lesion, or hemorrhage. 2. A single chronic lacunar infarct is noted in the left-sidedcerebellum. > Interpreting Provider: Meldia Blanchard MD on 11/15/2024 1:41 PM Dustin Singh MD MR ORDERABLES Final Result * TROPONIN-I HIGH SENSITIVE REFLEX 1HOUR (11/14/2024 11:10 PM CDT) Troponin I High Sensitive <3 <=14 ng/L 11/15/2024 12:07 AM [facility] Delta Troponin I HS 11/15/2024 12:07 AM [facility] Comment:Delta value intentio sandor not calculated. Baseline to 1 hour specimen collection interval exceeded. Blood BLOOD SPECIMEN / Unknown Venipuncture / Unknown 11/14/2024 11:10 PM CDT 11/14/2024 11:33 PM CDT Dustin Singh MD LAB - CHEMISTRY ORDERABLES Final Result Performing Organization Address City/[facility]/ZIP Co de Phone Number [address] [address], [place] [phone] * LIPID PROFILE (11/14/2024 11:10 PM CDT) Cholesterol Total 138 <200 mg/dL 11/15/2024 12:[address] [facility] HDL 48 >40 mg/dL 11/15/2024 12:[address] [facility] Comment: ATP III Classification of HDL Cholesterol: <40 mg/dL: Considered a major risk factor. >60 mg/dL: Considered a negative risk factor. LDL Calculated 72 <100 mg/dL 11/15/2024 12:[address] [facility] Comment: ATP III Classification of LDL Cholesterol: <100 mg/dL: Optimal 100 - 129 mg/dL: Near Optimal/Above Optimal 130 - 159 mg/dL: Borderline High 160 - 189 mg/dL: High >190 mg/dL: Very High LDL is calculated using the Friedewald equation. Triglycerides 88 <150 mg/dL 11/15/2024 12:[address] [facility] Comment: ATP III Classification of Triglycerides: <150 mg/dL: Normal 150 - 199 mg/dL: Borderline High 200 - 400 mg/dL: High >500 mg/dL: Very High Blood BLOOD SPECIMEN / Unknown Venipuncture / Unknown 11/14/2024 11:10 PM CDT 11/14/2024 11:33 PM CDT Dustin Singh MD LAB - CHEMISTRY ORDERABLES Final Result [address] [address], [place] [phone] * TROPONIN-I HIGH SENSITIVE BASELINE + 1HR (11/14/2024 9:27 PM CDT) Troponin I High Sensitive <3 <=14 ng/L 11/14/2024 10:44 PM CDT [facility] Blood BLOOD SPECIMEN / Unknown Venipuncture / Unknown 11/14/2024 9:27 PM CDT 11/14/2024 10:04 PM CDT Dustin Singh MD LAB - CHEMISTRY ORDERABLES Final Result [facility] [address] [place] [address], [facility] [phone] * XR CHEST 1VW PORTABLE (11/14/2024 8:37 PM CDT) Anatomical Region Laterality Modality Chest Digital Radiogra phy 11/14/2024 8:42 PM CDT Impressions 11/14/2024 8:43 PM CDT IMPRESSION: No acute cardiopulmonary abnormalities. > Interpreting Provider: Marcelino Cervantes MD on 11/14/2024 8:43 PM Narrative 11/14/2024 8:43 PM CDT PROCEDURE: XR CHEST 1VW PORTABLE DATE/TIME OF EXAM: 11/14/2024 8:38 PM CLINICAL INFORMATION: None relevant/not provided if blank. Indication: I63.9: Cerebrovascular accident (CVA), unspecified mechanism (HCC) Additional History: COMPARISON: None. FINDINGS: Single frontal view of the chest demonstrates a normal sized heart and pulmonary vasculature. No focal consolidation, pleural effusion or pneumothorax. No acute osseous abnormalities. Procedure Note Marcelino Cervantes MD - 11/14/2024 PROCEDURE: XR CHEST 1VW PORTABLE DATE/TIME OF EXAM: 11/14/2024 8:38 PM CLINICAL INFORMATION: None relevant/not provided if blank. Indication: I63.9: Cerebrovascular accident (CVA), unspecified mechanism (HCC) Additional History: COMPARISON: None. FINDINGS: Single frontal view of the chest demonstrates a normal sized heart and pulmonary vasculature. No focal consolidation, pleural effusion or pneumothorax. No acute osseous abnormalities. IMPRESSION: No acute cardiopulmonary abnormalities. > Interpreting Provider: Marcelino Cervantes MD on 11/14/2024 8:43 PM Dustin Singh MD DIAGNOSTIC IMAGING ORDERABLES Fi nal Result * TROPONIN-I HIGH SENSITIVE (11/14/2024 8:14 PM CDT) [facility] Troponin I High Sensitive <3 <=14 ng/L 11/14/2024 8:[address] [facility] Blood BLOOD SPECIMEN / Unknown Venipuncture / Unknown 11/14/2024 8:14 PM CDT 11/14/2024 8:20 PM CDT Ayden Alba MD LAB - CHEMISTRY ORDERABLES F inal Result Performing Organization Address City/[facility]/ZIP Co de Phone Number [address] [address], [facility] [phone] * PTT (11/14/2024 8:14 PM CDT) [facility] APTT 29.6 23.0 - 38.4 Seconds 11/14/2024 8:[address] [facility] Comment:Suggested therapeuti c range for full dose I.V. unfractionated heparin therapy for venous thromboembolism is 71 to 109 seconds. Blood BLOOD SPECIMEN / Unknown Venipuncture / Unknown 11/14/2024 8:14 PM CDT 11/14/2024 8:20 PM CDT Ayden Alba MD LAB - COAGULATION ORDERABLES Final Result Performing Organization Address City/[facility]/ZIP Co de Phone Number [address] [address], [facility] [phone] * PT-INR (11/14/2024 8:14 PM CDT) [facility] PT 12.6 12.1 - 14.8 Seconds 11/14/2024 8:[address] [facility] INR 1.0 See Comment 11/14/2024 8:[address] [facility] Comment:The suggested therap eutic range for standard coumadin (warfarin) therapy is an INR of 2.0-3.0. For high-risk patients (Mechanical Mitral Valve Prosthesis, etc.), the suggested prophylactic therapeutic range is an INR of 2.5-3.5. Blood BLOOD SPECIMEN / Unknown Venipuncture / Unknown 11/14/2024 8:14 PM CDT 11/14/2024 8:20 PM CDT us Ayden Alba MD LAB - COAGULATION ORDERABLES Final Result [facility] [address] [place] [phone], [facility] [phone] * CBC W AUTO DIFFERENTIAL (11/14/2024 8:14 PM CDT) WBC 7.4 4.0 - 10.7 x10E9/L 11/14/2024 8:28 PM [facility] RBC Count 4.34 3.90 - 5.20 x10E12/L 11/14/2024 8:28 PM [facility] Hemoglobin 12.5 11.9 - 15.8 g/dL 11/14/2024 8:28 PM [facility] Hematocrit 37.9 34.8 - 46.1 % 11/14/2024 8:28 PM [facility] MCV 87.3 80.0 - 98.0 fL 11/14/2024 8:28 PM [facility] MCH 28.8 26.7 - 33.6 pg 11/14/2024 8:28 PM [facility] MCHC 33.0 31.7 - 36.3 g/dL 11/14/2024 8:28 PM [facility] RDW-CV 13.6 11.3 - 14.8 % 11/14/2024 8:28 PM [facility] Platelet Count 282 150 - 420 x10E9/L 11/14/2024 8:28 PM [facility] MPV 10.1 7.8 - 11.4 fL 11/14/2024 8:28 PM [facility] Neutrophil % 66.5 41.0 - 74.0 % 11/14/2024 8:28 PM [facility] Lymphocyte % 24.7 17.0 - 47.0 % 11/14/2024 8:28 PM [facility] Monocyte % 5.4 3.0 - 11.0 % 11/14/2024 8:28 PM [facility] Eosinophil % 3.0 0.0 - 7.0 % 11/14/2024 8:28 PM [facility] Basophil % 0.1 0.0 - 1.6 % 11/14/2024 8:28 PM [facility] Immature Granulocytes % 0.3 0.0 - 1.0 % 11/14/2024 8:28 PM [facility] Neutrophil Absolute 4.89 1.60 - 7.50 x10E9/L 11/14/2024 8:28 PM [facility] Lymphocyte Absolute 1.82 1.00 - 4.40 x10E9/L 11/14/2024 8:28 PM [facility] Monocyte Absolute 0.40 0.15 - 1.00 x10E9/L 11/14/2024 8:28 PM [facility] Eosinophil Absolute 0.22 0.00 - 0.60 x10E9/L 11/14/2024 8:28 PM [facility] Basophil Absolute 0.01 0.00 - 0.13 x10E9/L 11/14/2024 8:28 PM [facility] Blood BLOOD SPECIMEN / Unknown Venipuncture / Unknown 11/14/2024 8:14 PM CDT 11/14/2024 8:20 PM CDT us Ayden Alba MD LAB - HEMATOLOGY ORDERABLES Final Result [facility] [address] [place] [phone], [facility] [phone] * (ABNORMAL) COMPREHENSIVE METABOLIC PANEL (11/14/2024 8:14 PM CDT) BUN 8 7 - 26 mg/dL 11/14/2024 8:52 PM [facility] Creatinine 0.55(L) 0.56 - 0.96 mg/dL 11/14/2024 8:52 PM [facility] Sodium 140 136 - 145 mmol/L 11/14/2024 8:52 PM [facility] Potassium 3.7 3.5 - 4.5 mmol/L 11/14/2024 8:52 PM [facility] Chloride 108(H) 98 - 107 mmol/L 11/14/2024 8:52 PM [facility] CO2 25 22 - 29 mmol/L 11/14/2024 8:52 PM [facility] Glucose 105(H) 70 - 99 mg/dL 11/14/2024 8:52 PM [facility] Calcium 9.3 8.4 - 10.2 mg/dL 11/14/2024 8:52 PM [facility] Protein Total 6.7 6.0 - 8.3 g/dL 11/14/2024 8:52 PM [facility] Albumin 3.7 3.4 - 5.0 g/dL 11/14/2024 8:52 PM [facility] Bilirubin Total 0.3 0.2 - 1.2 mg/dL 11/14/2024 8:52 PM [facility] Alkaline Phosphatase 150 40 - 150 U/L 11/14/2024 8:52 PM [facility] ALT 23 5 - 55 U/L 11/14/2024 8:52 PM [facility] AST 17 5 - 34 U/L 11/14/2024 8:52 PM [facility] Anion Gap 7 6 - 16 11/14/2024 8:52 PM [facility] BUN/Creatinine Ratio 15 7 - 23 11/14/2024 8:52 PM [facility] Osmolality Calculated 289 275 - 295 mOsm/kg 11/14/2024 8:52 PM [facility] Albumin/Globulin Ratio 1.2 1.1 - 2.3 11/14/2024 8:52 PM [facility] eGFR by CKD-EPI >90 >=90 mL/min/1.7 3 m2 11/14/2024 8:52 PM [facility] Comment:Estimated Glomerular Filtration Rate (eGFR) calculated using the CKD-EPI Creatinine Equation (2020), per the National Kid[employer] Foundation and [place] [employer] recommendations. Blood BLOOD SPECIMEN / Unknown Venipuncture / Unknown 11/14/2024 8:14 PM CDT 11/14/2024 8:20 PM CDT us Ayden Alba MD LAB - CHEMISTRY ORDERABLES F inal Result Performing Organization Address City/State/[facility] Co de Phone Number [facility] [address] [address], [facility] [phone] * CT ANGIO BRAIN NECK STROKE (11/14/2024 8:04 PM CDT) Anatomical Region Laterality Modality Head Computed Tomogra phy 11/14/2024 8:14 PM CDT Impressions 11/14/2024 8:22 PM CDT IMPRESSION: 1. No acute intracranial hemorrhage. 2. No large arterial occlusions or hemodynamically significant stenoses identified in the head or neck. Viz.AI was used for large vessel occlusion detection. > Interpreting Provider: Ana Laura Mahan MD on 11/14/2024 8:22 PM Narrative 11/14/2024 8:22 PM CDT PROCEDURE: CT ANGIO BRAIN NECK STROKE, DATE/TIME OF EXAM: 11/14/2024 8:04 PM, LOCATION [facility] INDICATION: R53.1: Weakness ADDITIONAL CLINICAL INFORMATION: Ordering Provider Reason For Exam: Weakness. Technologist Note: None. Additional: None. EXAMINATION: 1. Computed tomographic (CT) angiography of the head with contrast 2. CT angiography of the neck with contrast CONTRAST: IOPAMIDOL 76 % IV SOLN:75 mL TECHNIQUE: CT angiography of the head and neck was obtained after the uneventful administration of 75 mL Isovue-370 intravenous contrast. Three dimensional postprocessing was performed by the technologist and sent to the workstation for review. Stenosis measurements are based on NASCET criteria. CT dose reduction technique was used, including Automated Exposure Control. COMPARISON: Same day noncontrast CT of the head. FINDINGS: Non-angiographic findings: Please refer to the separately dictated noncontrast head CT for the non-angiographic findings. Borderline mild degenerative changes of the cervical spine, worse at C5-C6 and C6-C7 with mild spinal canal stenosis due to degenerative disc disease. The patient is edentulous. Subtle background hyperinflation/subtle emphysematous changes. Angiographic findings: There is atherosclerotic disease of the aortic arch. There is a common origin of the innominate and left common carotid arteries from the aortic arch. There is atherosclerotic calcification of the innominate and subclavian arteries. There is atherosclerotic disease of the right carotid bifurcation and origin of the right internal carotid artery with no focal stenosis by NASCET criteria. The right common and internal carotid arteries otherwise appear normal. There is atherosclerotic disease of the left carotid bifurcation and origin of the left internal carotid artery with no focal stenosis by NASCET criteria. The left common and internal carotid arteries otherwise appear normal. There is atherosclerotic disease involving the cervical vertebral arteries without significant focal stenosis. The cervical carotid and vertebral arteries are tortuous. There is atherosclerotic disease involving the distal internal carotid arteries without significant focal stenosis. Hypoplasia of the A1 segment of the right CASPER. The remaining right CASPER is supplied from the contralateral side via the anterior communicating artery. Otherwise, the remaining anterior and middle cerebral arteries appear normal. There is atherosclerotic disease involving the distal vertebral arteries without significant focal stenosis. The basilar artery and posterior cerebral arteries appear normal with origin of the right posterior cerebral artery. No aneurysms, vascular occlusions, or hemodynamically significant intracranial stenoses are identified. Procedure Note Ana Laura Mahan MD - 11/14/2024 PROCEDURE: CT ANGIO BRAIN NECK STROKE, DATE/TIME OF EXAM: :04 PM, LOCATION [facility] INDICATION: R53.1: Weakness ADDITIONAL CLINICAL INFORMATION: Ordering Provider Reason For Exam: Weakness. Technologist Note: None. Additional: None. EXAMINATION: 1. Computed tomographic (CT) angiography of the head with contrast 2. CT angiography of the neck with contrast CONTRAST: IOPAMIDOL 76 % IV SOLN:75 mL TECHNIQUE: CT angiography of the head and neck was obtained after the uneventful administration of 75 mL Isovue-370 intravenous contrast.Three dimensional postprocessing was performed by the technologist and sent to the workstation for review. Stenosis measurements are based on NASCET criteria. CT dose reduction technique was used, including Automated Exposure Control. COMPARISON: Same day noncontrast CT of the head. FINDINGS: Non-angiographic findings: Please refer to the separately dictated noncontrast head CT for the non-angiographic findings. Borderline mild degenerative changes of the cervical spine, worse atC5-C6 and C6-C7 with mild spinal canal stenosis due to degenerative discdisease. The patient is edentulous. Subtle background hyperinflation/subtle emphysematous changes. Angiographic findings: There is atherosclerotic disease of the aortic arch. There is a common origin of the innominate and left common carotid arteries from theaortic arch. There is atherosclerotic calcification of the innominate and subclavian arteries. There is atherosclerotic disease of the rightcarotid bifurcation and origin of the right internal carotid artery with nofocal stenosis by NASCET criteria. The right common and internal carotidarteries otherwise appear normal. There is atherosclerotic disease of the left carotid bifurcation and origin of the left internal carotid artery withno focal stenosis by NASCET criteria. The left common and internal carotid arteries otherwise appear normal. There is atherosclerotic disease involving the cervical vertebral arteries without significant focal stenosis. The cervical carotid and vertebral arteries are tortuous. There is atherosclerotic disease involving the distal internal carotid arteries without significant focal stenosis. Hypoplasia of the [id number] of the right CASPER. The remaining right CASPER is supplied from the contralateral side via the anterior communicating artery. Otherwise, the remaining anterior and middle cerebral arteries appear normal. There is atherosclerotic disease involving the distal vertebral arteries without significant focal stenosis. The basilar artery and posterior cerebral arteries appear normal with origin of the right posterior cerebral artery. No aneurysms, vascular occlusions, or hemodynamicallysignificant intracranial stenoses are identified. IMPRESSION: 1. No acute intracranial hemorrhage. 2. No large arterial occlusions or hemodynamically significant stenoses identified in the head or neck. Viz.AI was used for large vessel occlusion detection. > Interpreting Provider: Ana Laura Mahan MD on 11/14/2024 8:22 PM Ayden Alba MD CT ORDERABLES Final Result * CT BRAIN - Stroke (11/14/2024 7:43 PM CDT) Anatomical Region Laterality Modality Head Computed Tomogra phy 11/14/2024 7:45 PM CDT Impressions 11/14/2024 7:57 PM CDT IMPRESSION: 1.No acute intracranial hemorrhage. 2.Please note that CT is insensitive to nonhemorrhagic strokes and MRI of the brain should be considered, if there is clinical concern for acute cerebral infarction. Disclaimer: 1.Brain areas including the cerebral sulci, the dural sinuses, the cavernous sinuses, the basilar artery/posterior circulation, the craniocervical junction, and the brain stem, may not be well evaluated on noncontrast CT. MRI of the brain is more sensitive for parenchymal changes related to the above-mentioned brain regions. If there is clinical concern for pathology involving the above-mentioned areas, MRI of the brain is recommended for further evaluation. Results of this exam were communicated with closed loop confirmation to Dr. Perez by Dr. Mahan on 11/14/2024 at 7:45 PM, with read back comprehension and verification. > Interpreting Provider: Ana Laura Mahan MD on 11/14/2024 7:57 PM Narrative 11/14/2024 7:57 PM CDT PROCEDURE: CT BRAIN STROKE, DATE/TIME OF EXAM: 11/14/2024 7:45 PM, LOCATION [facility] INDICATION: R53.1: Weakness EXAMINATION: Computed tomography (CT) of the head without contrast ADDITIONAL CLINICAL INFORMATION: Ordering Provider Reason For Exam: Weakness. Technologist Note: None. Additional: None. TECHNIQUE: CT of the head was performed without contrast according to standard protocol. CT dose reduction technique was used, including Automated Exposure Control. COMPARISON: No prior study is available for comparison at the time of this dictation. FINDINGS: No acute intra- or extra-axial fluid collections are identified. There is mild cerebral volume loss with associated ex vacuo ventricular dilatation. The basilar cisterns are patent. No mass effect or midline shift is seen. Subtle foci of hypoattenuation are noted in the right more than left cerebellar hemispheres, which could represent artifacts or partial volume averaging, and appropriate clinical setting. Additional hypoattenuation is noted in the brainstem, unclear whether artifactual. The frank-white matter differentiation otherwise appears normal. Periventricular white matter hypoattenuation is indicative of chronic small vessel ischemic disease. There is vascular calcification of the carotid siphons. Suggestion of partial empty sella. No acute calvarial fracture is identified. The orbits appear normal. There is mild paranasal sinus disease. The mastoid air cells are grossly clear. No soft tissue abnormality is identified. Procedure Note Ana Laura Mahan MD - 11/14/2024 PROCEDURE: CT BRAIN STROKE, DATE/TIME OF EXAM: 11/14/2024 7:45 PM, LOCATION [facility] INDICATION: R53.1: Weakness EXAMINATION: Computed tomography (CT) of the head without contrast ADDITIONAL CLINICAL INFORMATION: Ordering Provider Reason For Exam: Weakness. Technologist Note: None. Additional: None. TECHNIQUE: CT of the head was performed without contrast according to standard protocol. CT dose reduction technique was used, including Automated Exposure Control. COMPARISON: No prior study is available for comparison at the time ofthis dictation. FINDINGS: No acute intra- or extra-axial fluid collections are identified. Thereis mild cerebral volume loss with associated ex vacuo ventriculardilatation. The basilar cisterns are patent. No mass effect or midline shift isseen. Subtle foci of hypoattenuation are noted in the right more than left cerebellar hemispheres, which could represent artifacts or partialvolume averaging, and appropriate clinical setting. Additional hypoattenuationis noted in the brainstem, unclear whether artifactual. The frank-whitematter differentiation otherwise appears normal. Periventricular white matter hypoattenuation is indicative of chronic small vessel ischemic disease. There is vascular calcification of the carotid siphons. Suggestion of partial empty sella. No acute calvarial fracture is identified. Theorbits appear normal. There is mild paranasal sinus disease. The mastoid aircells are grossly clear. No soft tissue abnormality is identified. IMPRESSION: 1.No acute intracranial hemorrhage. 2.Please note that CT is insensitive to nonhemorrhagic strokes and MRIof the brain should be considered, if there is clinical concern for acute cerebral infarction. Disclaimer: 1.Brain areas including the cerebral sulci, the dural sinuses, the cavernous sinuses, the basilar artery/posterior circulation, the craniocervical junction, and the brain stem, may not be well evaluatedon noncontrast CT. MRI of the brain is more sensitive for parenchymalchanges related to the above-mentioned brain regions. If there is clinicalconcern for pathology involving the above-mentioned areas, MRI of the brain is recommended for further evaluation. Results of this exam were communicated with closed loop confirmation toDr. Perez by Dr. Mahan on 11/14/2024 at 7:45 PM, with read backcomprehension and verification. > Interpreting Provider: Ana Laura Mahan MD on 11/14/2024 7:57 PM Ayden Alba MD CT ORDERABLES Final Result from Last 3 Months Insurance [facility] Advance Directives * Full Code (Latest Code Status on File) Date Activated Date Inactivated Comments 11/14/2024 8:18 PM 11/16/2024 7:33 PM Care Teams Pipe Line Walker Relationship Specialty Start Date End Date Herb Tate, MIQUEL-DB2 DBA [address] [place] [id number] PCP - General Nurse Practitioner 11/14/24
[2024-11-24 19:18] LABS: Influenza A QL RT-PCR Negative (Negative); Influenza B QL RT-PCR Negative (Negative); RSV RNA, RT-PCR Negative (Negative); SARS-CoV-2 RNA PCR Negative (Negative)
[2024-11-24] MEDS: MAG HYDROX/ALUMINUM HYD/SIMETH 30 ML, PHENobarb/HYOSCY/ATROPINE/SCOP 32.4 MG, LIDOCAINE... PO (19:46)
[2024-11-25] VITALS: BP 131/69; PULSE 64; PULSE 68; RESP 20; TEMP 36.7; O2SAT 95
[2024-11-25 04:00] VITALS: PULSE 71
[2024-11-25 04:16] LABS: Troponin I < 0.012 ng/mL (0.000-0.034)
--- OUTSIDE RECORDS SUMMARY | 2024-11-25 07:16 | XMS_ITS | Clinical Summary ---
Author Organization [facility] [employer] Address [address] [place] [address] Care Team Providers Care Wrapping Machine Tender Name Role Phone Herb Tate SALES AND MARKETING PROFESSIONAL-MEDICAL PLANNER Primary Care Provider [phone] Source Comments [facility] [employer],non-owned Affiliates and Associated Physician Practices is amultiple site organization consisting of ambulatory clinics and hospital sitesin [place], [place], [place] and [place]. This disclosure is being madepursuant to the Care Everywhere program and may not contain all information available regarding this patient. Last updated 17.[employer] Allergies No known active allergies Medications * [...] - 11/16/2024 5:57 PM CDT Hospital Encounter [facility] 3[address] ICU [address] [place] [address] Dustin Singh MD Edgell, Randall C, MD [...] and heating? Not hard at all 11/15/2024 [facility] [place] [facility] - Occupational Stress [...] any time in the past [address] [facility], were you homeless or living in a skilled nursing (including now)? 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 [facility] Glucose WB/POC 106(H) 70 - 99 mg/dL 11/16/2024 12:03 PM CDT [facility] Specimen Type Arterial/C apillary 11/16/2024 12:03 PM CDT [facility] Blood BLOOD SPECIMEN / Unknown 11/16/2024 11:59 AM CDT 11/16/2024 12:03 PM CDT Brny Sanchez MD LAB - POINT OF CARE ORDERABL ES Final Result [facility] [address] [place] [address], [facility] [phone] * HEMOGLOBIN A1C (11/16/2024 4:45 AM CDT) Only the most recent of2 resultswithin the time period is included. [facility] Hemoglobin A1c 5.6 <=5.6 % 11/16/2024 8:51 AM CDT [facility] Estimated Average Glucose 114 mg/dL 11/16/2024 8:51 AM CDT [facility] Comment: HbA1c Interpretation: Normal : < 5.7% Pre-diabetes: 5.7-6.4% Diabetes: Equal to or greater than 6.5% Test results diagnostic of diabetes should be repeated for confirmation. Treatment target values recommended by ADA and other clinical organizations should be used to evaluate metabolic control in patients. Reference: [place] Diabetes Association, Standards of Care in Diabetes -2020 In patients 70 years and older consider HbA1c target range of 7.0-7.5% (Reference: Ko Escoto et al. MARGARITADA. 2012) The Sebia assay for the measurement of HbA1c is a National Glycohemoglobin Standardization Program (NGSP) certified method. Blood BLOOD SPECIMEN / Unknown Venipuncture / Unknown 11/16/2024 4:45 AM CDT 11/16/2024 5:20 AM CDT Jose Hill SALES AND MARKETING PROFESSIONAL-MEDICAL PLANNER LAB - CHEMISTRY ORDERABLE S Final Result [address] [address], [facility] [phone] * (ABNORMAL) CBC W/O DIFFERENTIAL (11/16/2024 4:45 AM CDT) Only the most recent of2 resultswithin the time period is included. WBC 7.1 4.0 - 10.7 x10E9/L 11/16/2024 5:17 AM [facility] RBC Count 4.25 3.90 - 5.20 x10E12/L 11/16/2024 5:17 AM [facility] Hemoglobin 12.0 11.9 - 15.8 g/dL 11/16/2024 5:17 AM [facility] Hematocrit 38.1 34.8 - 46.1 % 11/16/2024 5:17 AM [facility] MCV 89.6 80.0 - 98.0 fL 11/16/2024 5:17 AM [facility] MCH 28.2 26.7 - 33.6 pg 11/16/2024 5:17 AM [facility] MCHC 31.5(L) 31.7 - 36.3 g/dL 11/16/2024 5:17 AM [facility] RDW-CV 13.9 11.3 - 14.8 % 11/16/2024 5:17 AM [facility] Platelet Count 274 150 - 420 x10E9/L 11/16/2024 5:17 AM [facility] MPV 9.8 7.8 - 11.4 fL 11/16/2024 5:17 AM [facility] Blood BLOOD SPECIMEN / Unknown Venipuncture / Unknown 11/16/2024 4:45 AM CDT 11/16/2024 4:54 AM CDT us Dustin Singh MD LAB - HEMATOLOGY ORDERABLES Chandrika coombs Result [facility] [address] [place] [address], [facility] [phone] * (ABNORMAL) BASIC METABOLIC PANEL (CALCIUM TOTAL) (11/16/2024 4:45 AM CDT) Only the most recent of2 resultswithin the time period is included. BUN 11 7 - 26 mg/dL 11/16/2024 5:20 AM [facility] Creatinine 0.51(L) 0.56 - 0.96 mg/dL 11/16/2024 5:20 AM [facility] Sodium 142 136 - 145 mmol/L 11/16/2024 5:20 AM [facility] Potassium 4.1 3.5 - 4.5 mmol/L 11/16/2024 5:20 AM [facility] Chloride 110(H) 98 - 107 mmol/L 11/16/2024 5:20 AM [facility] CO2 24 22 - 29 mmol/L 11/16/2024 5:20 AM [facility] Glucose 112(H) 70 - 99 mg/dL 11/16/2024 5:20 AM [facility] Calcium 8.4 8.4 - 10.2 mg/dL 11/16/2024 5:20 AM [facility] Anion Gap 8 6 - 16 11/16/2024 5:20 AM [facility] BUN/Creatinine Ratio 22 7 - 23 11/16/2024 5:20 AM CDT [facility] Osmolality Calculated 294 275 - 295 mOsm/kg 11/16/2024 5:20 AM CDT [facility] eGFR by CKD-EPI >90 >=90 mL/min/1.7 3 m2 11/16/2024 5:20 AM CDT [facility] Comment:Estimated Glomerular Filtration Rate (eGFR) calculated using the CKD-EPI Creatinine Equation (2020), per the National Kidney Foundation and [place] Society of Nephrology recommendations. Blood BLOOD SPECIMEN / Unknown Venipuncture / Unknown 11/16/2024 4:45 AM CDT 11/16/2024 4:53 AM CDT us Dustin Singh MD LAB - CHEMISTRY ORDERABLES Final Result [facility] [address] [place] [address], [facility] [phone] * CT HEAD NON CONTRAST (11/15/2024 5:08 PM CDT) Anatomical Region Laterality Modality Head Computed Tomogra phy 11/15/2024 7:27 PM CDT Impressions 11/15/2024 8:38 PM CDT IMPRESSION: 1.No acute intracranial hemorrhage, midline shift, or significant mass effect. Report was dictated by Jamison Camp MD, ([facility] resident) 11/15/2024 7:27 PM > Dictated by Jamison Camp MD 11/15/2024 7:27 PM > Dictated by Sweep Press Operator I, Ana Laura Mahan MD have personally reviewed and interpreted this examination/study. > Interpreting Provider: Ana Laura Mahan MD on 11/15/2024 8:38 PM Narrative 11/15/2024 8:38 PM CDT PROCEDURE: CT HEAD WO CONTRAST, DATE/TIME OF EXAM: 11/15/2024 5:09 PM, LOCATION [facility] INDICATION: I63.9: Cerebrovascular accident (CVA), unspecified [...] DATE/TIME OF EXAM: 11/15/2024 5:09 PM, LOCATION [facility] INDICATION: I63.9: Cerebrovascular accident (CVA), unspecified [...] MD 11/15/2024 7:27 PM > Dictated by Sweep Press Operator I, Ana Laura Mahan MD have personally [...] 10:02 AM Patient Status: I/P Study Site: [facility] Primary Location: [facility] Info Technical Quality: Technically Difficult Exam Type: [...] Provider: Dustin Singh Attending Physician: Dustin Singh Driver/Sales Workers: Candelario Enriquez Left Ventricle The left ventricle [...] 10:02 AM Patient Status: I/P Study Site: [facility] Primary Location: [facility] EStudy Info Technical Quality: Technically Difficult [...] Provider: Dustin Singh Attending Physician: Dustin Singh Driver/Sales Workers: Candelario Enriquez Left Ventricle The left ventricle [...] noted in the left-sidedcerebellum. > Interpreting Provider: Melida Blanchard MD on 11/15/2024 1:41 PM Dustin Singh MD MR ORDERABLES Final Result * TROPONIN-I HIGH SENSITIVE REFLEX 1HOUR (11/14/2024 11:10 PM CDT) Troponin I High Sensitive <3 <=14 ng/L 11/15/2024 12:07 AM [facility] Delta Troponin I HS 11/15/2024 12:07 AM [facility] Comment:Delta value intentio sandor not calculated. Baseline to 1 hour specimen collection interval exceeded. Blood BLOOD SPECIMEN / Unknown Venipuncture / Unknown 11/14/2024 11:10 PM CDT 11/14/2024 11:33 PM CDT Dustin Singh MD LAB - CHEMISTRY ORDERABLES Final Result Performing Organization Address City/[facility]/ZIP Co de Phone Number [address] [address], [place] [phone] * LIPID PROFILE (11/14/2024 11:10 PM CDT) Cholesterol Total 138 <200 mg/dL 11/15/2024 12:02 AM CDT [facility] HDL 48 >40 mg/dL 11/15/2024 12:02 AM T [facility] Comment: ATP III Classification of HDL Cholesterol: <40 mg/dL: Considered a major risk factor. >60 mg/dL: Considered a negative risk factor. LDL Calculated 72 <100 mg/dL 11/15/2024 12:02 AM T [facility] Comment: ATP III Classification of LDL Cholesterol: <100 mg/dL: Optimal 100 - 129 mg/dL: Near Optimal/Above Optimal 130 - 159 mg/dL: Borderline High 160 - 189 mg/dL: High >190 mg/dL: Very High LDL is calculated using the Friedewald equation. Triglycerides 88 <150 mg/dL 11/15/2024 12:02 AM T [facility] Comment: ATP III Classification of Triglycerides: <150 mg/dL: Normal 150 - 199 mg/dL: Borderline High 200 - 400 mg/dL: High >500 mg/dL: Very High Blood BLOOD SPECIMEN / Unknown Venipuncture / Unknown 11/14/2024 11:10 PM CDT 11/14/2024 11:33 PM CDT Dustin Singh MD LAB - CHEMISTRY ORDERABLES Final Result [address] [address], [place] [phone] * TROPONIN-I HIGH SENSITIVE BASELINE + 1HR (11/14/2024 9:27 PM CDT) Troponin I High Sensitive <3 <=14 ng/L 11/14/2024 10:44 PM CDT [facility] Blood BLOOD SPECIMEN / Unknown Venipuncture / Unknown 11/14/2024 9:27 PM CDT 11/14/2024 10:04 PM CDT Dustin Singh MD LAB - CHEMISTRY ORDERABLES Final Result [facility] [address] [place] [address], [facility] [phone] * XR CHEST 1VW PORTABLE (11/14/2024 8:37 [...] TROPONIN-I HIGH SENSITIVE (11/14/2024 8:14 PM CDT) [facility] Troponin I High Sensitive <3 <=14 ng/L 11/14/2024 8:56 PM CDT [facility] Blood BLOOD SPECIMEN / Unknown Venipuncture / Unknown 11/14/2024 8:14 PM CDT 11/14/2024 8:20 PM CDT Ayden Alba MD LAB - CHEMISTRY ORDERABLES F inal Result Performing Organization Address City/[facility]/ZIP Co de Phone Number [address] [address], [facility] [phone] * PTT (11/14/2024 8:14 PM CDT) [facility] APTT 29.6 23.0 - 38.4 Seconds 11/14/2024 8:44 PM CDT [facility] Comment:Suggested therapeuti c range for full dose I.V. unfractionated heparin therapy for venous thromboembolism is 71 to 109 seconds. Blood BLOOD SPECIMEN / Unknown Venipuncture / Unknown 11/14/2024 8:14 PM CDT 11/14/2024 8:20 PM CDT Ayden Alba MD LAB - COAGULATION ORDERABLES Final Result Performing Organization Address City/[facility]/ZIP Co de Phone Number [address] [address], [facility] [phone] * PT-INR (11/14/2024 8:14 PM CDT) [facility] PT 12.6 12.1 - 14.8 Seconds 11/14/2024 8:44 PM CDT [facility] INR 1.0 See Comment 11/14/2024 8:44 PM CDT [facility] Comment:The suggested therap eutic range for standard coumadin (warfarin) therapy is an INR of 2.0-3.0. For high-risk patients (Mechanical Mitral Valve Prosthesis, etc.), the suggested prophylactic therapeutic range is an INR of 2.5-3.5. Blood BLOOD SPECIMEN / Unknown Venipuncture / Unknown 11/14/2024 8:14 PM CDT 11/14/2024 8:20 PM CDT us Ayden Alba MD LAB - COAGULATION ORDERABLES Final Result [facility] [address] [place] [address], [facility] [phone] * CBC W AUTO DIFFERENTIAL (11/14/2024 8:14 PM CDT) WBC 7.4 4.0 - 10.7 x10E9/L 11/14/2024 8:28 PM [facility] RBC Count 4.34 3.90 - 5.20 x10E12/L 11/14/2024 8:28 PM [facility] Hemoglobin 12.5 11.9 - 15.8 g/dL 11/14/2024 8:28 PM [facility] Hematocrit 37.9 34.8 - 46.1 % 11/14/2024 8:28 PM [facility] MCV 87.3 80.0 - 98.0 fL 11/14/2024 8:28 PM [facility] MCH 28.8 26.7 - 33.6 pg 11/14/2024 8:28 PM [facility] MCHC 33.0 31.7 - 36.3 g/dL 11/14/2024 8:28 PM [facility] RDW-CV 13.6 11.3 - 14.8 % 11/14/2024 8:28 PM [facility] Platelet Count 282 150 - 420 x10E9/L 11/14/2024 8:28 PM [facility] MPV 10.1 7.8 - 11.4 fL 11/14/2024 8:28 PM [facility] Neutrophil % 66.5 41.0 - 74.0 % 11/14/2024 8:28 PM [facility] Lymphocyte % 24.7 17.0 - 47.0 % 11/14/2024 8:28 PM [facility] Monocyte % 5.4 3.0 - 11.0 % 11/14/2024 8:28 PM [facility] Eosinophil % 3.0 0.0 - 7.0 % 11/14/2024 8:28 PM [facility] Basophil % 0.1 0.0 - 1.6 % 11/14/2024 8:28 PM [facility] Immature Granulocytes % 0.3 0.0 - 1.0 % 11/14/2024 8:28 PM [facility] Neutrophil Absolute 4.89 1.60 - 7.50 x10E9/L 11/14/2024 8:28 PM [facility] Lymphocyte Absolute 1.82 1.00 - 4.40 x10E9/L 11/14/2024 8:28 PM [facility] Monocyte Absolute 0.40 0.15 - 1.00 x10E9/L 11/14/2024 8:28 PM [facility] Eosinophil Absolute 0.22 0.00 - 0.60 x10E9/L 11/14/2024 8:28 PM [facility] Basophil Absolute 0.01 0.00 - 0.13 x10E9/L 11/14/2024 8:28 PM [facility] Blood BLOOD SPECIMEN / Unknown Venipuncture / Unknown 11/14/2024 8:14 PM CDT 11/14/2024 8:20 PM CDT us Ayden Alba MD LAB - HEMATOLOGY ORDERABLES Final Result [facility] [address] [place] [address], [facility] [phone] * (ABNORMAL) COMPREHENSIVE METABOLIC PANEL (11/14/2024 8:14 PM CDT) BUN 8 7 - 26 mg/dL 11/14/2024 8:52 PM [facility] Creatinine 0.55(L) 0.56 - 0.96 mg/dL 11/14/2024 8:52 PM [facility] Sodium 140 136 - 145 mmol/L 11/14/2024 8:52 PM [facility] Potassium 3.7 3.5 - 4.5 mmol/L 11/14/2024 8:52 PM [facility] Chloride 108(H) 98 - 107 mmol/L 11/14/2024 8:52 PM [facility] CO2 25 22 - 29 mmol/L 11/14/2024 8:52 PM [facility] Glucose 105(H) 70 - 99 mg/dL 11/14/2024 8:52 PM [facility] Calcium 9.3 8.4 - 10.2 mg/dL 11/14/2024 8:52 PM [facility] Protein Total 6.7 6.0 - 8.3 g/dL 11/14/2024 8:52 PM [facility] Albumin 3.7 3.4 - 5.0 g/dL 11/14/2024 8:52 PM [facility] Bilirubin Total 0.3 0.2 - 1.2 mg/dL 11/14/2024 8:52 PM [facility] Alkaline Phosphatase 150 40 - 150 U/L 11/14/2024 8:52 PM [facility] ALT 23 5 - 55 U/L 11/14/2024 8:52 PM [facility] AST 17 5 - 34 U/L 11/14/2024 8:52 PM [facility] Anion Gap 7 6 - 16 11/14/2024 8:52 PM [facility] BUN/Creatinine Ratio 15 7 - 23 11/14/2024 8:52 PM [facility] Osmolality Calculated 289 275 - 295 mOsm/kg 11/14/2024 8:52 PM [facility] Albumin/Globulin Ratio 1.2 1.1 - 2.3 11/14/2024 8:52 PM [facility] eGFR by CKD-EPI >90 >=90 mL/min/1.7 3 m2 11/14/2024 8:52 PM [facility] Comment:Estimated Glomerular Filtration Rate (eGFR) calculated using the CKD-EPI Creatinine Equation (2020), per the National Kidney Foundation and [place] Society of Nephrology recommendations. Blood BLOOD SPECIMEN / Unknown Venipuncture / Unknown 11/14/2024 8:14 PM CDT 11/14/2024 8:20 PM CDT us Ayden Alba MD LAB - CHEMISTRY ORDERABLES F inal Result Performing Organization Address City/State/[facility] Co de Phone Number [facility] [address] [address], [facility] [phone] * CT ANGIO BRAIN NECK STROKE (11/14/2024 [...] DATE/TIME OF EXAM: 11/14/2024 8:04 PM, LOCATION [facility] INDICATION: R53.1: Weakness ADDITIONAL CLINICAL INFORMATION: [...] STROKE, DATE/TIME OF EXAM: :04 PM, LOCATION [facility] INDICATION: R53.1: Weakness ADDITIONAL CLINICAL INFORMATION: [...] without significant focal stenosis. Hypoplasia of the V1jeznyec of the right CAS[place]. The remaining right [...] DATE/TIME OF EXAM: 11/14/2024 7:45 PM, LOCATION [facility] INDICATION: R53.1: Weakness EXAMINATION: Computed tomography [...] DATE/TIME OF EXAM: 11/14/2024 7:45 PM, LOCATION [facility] INDICATION: R53.1: Weakness EXAMINATION: Computed tomography [...] Final Result from Last 3 Months Insurance [facility] Advance Directives * Full Code (Latest Code Status on File) Date Activated Date Inactivated Comments 11/14/2024 8:18 PM 11/16/2024 7:33 PM Care Teams Wrapping Machine Tender Relationship Specialty Start Date End Date Herb Tate, MIQUEL-MEDICAL PLANNER [address] [place] [id number] PCP - General Nurse Practitioner 11/14/24
--- OUTSIDE RECORDS SUMMARY | 2024-11-25 07:16 | XMS_ITS | Clinical Summary ---
Author Organization 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
--- OUTSIDE RECORDS SUMMARY | 2024-11-25 07:16 | XMS_ITS | Clinical Summary ---
Author Organization [facility] Address [address] [facility], [place] [address] Phone Care Team Providers Care Magneto Repairer Name Role Phone Rhianna Shepard EVA Primary [...] Insurance MEDICAID [employer] Care Teams Magneto Repairer Relationship Specialty Start Date End Date Rhianna Shepard PAC [address] [place], [place] [phone] PCP - General Advanced Practice Nurse 07/02/23
[2024-11-25 08:00] VITALS: BP 119/57; PULSE 68; PULSE 79; RESP 16; TEMP 36.3; O2SAT 95
[2024-11-25] MEDS: ATORVASTATIN 10 MG TABLET 20 MG PO (08:32)
[2024-11-25] MEDS: TOPIRAMATE 25 MG TABLET 50 MG PO (08:33)
[2024-11-25] MEDS: PANTOPRAZOLE 40 MG TABLET PO (08:33)
[2024-11-25] MEDS: ATORVASTATIN 40 MG TABLET PO (08:33)
[2024-11-25] MEDS: metFORMIN HCL XR 500 MG TAB.SR.24H PO (08:33)
[2024-11-25] MEDS: ASPIRIN 81 MG ENTERIC TABLET PO (08:34)
[2024-11-25 09:38] LABS: Troponin I < 0.012 ng/mL (0.000-0.034)
[2024-11-25 10:30] LABS: Cannabinoid Screen Urine Negative (Negative)
--- NOTE | 2024-11-25 11:01 | PM.SD2 ---
Same Day Admit/Disch: HPI History of Present Illness Chief complaint: chest pain Narrative: Patient is a 59-year-old female with past medical history of bipolar disorder, COPD, obesity, and GERD, hyperlipidemia and possible recent CVA. Patient presents to the ER with complaints of chest pain that she described as pressure on her chest with some associated mild dyspnea. Patient reports that she had a positive Lexiscan a few months ago for heart catheterization was negative. Patient was treated with TNK a week ago for a possible CVA. In the ER the patient's EKG showed NSR with a rate of [address] elevation/depression. Patient was given nitroglycerin and pain went from an 8-2. Chest x-ray does show interstitial ground-glass opacities bilaterally which may represent pulmonary congestion. patient was given a GI cocktail and continued to have slight chest pressure. patient's BNP was less than 20. Patient's initial troponin was negative and two repeat troponins remain negative. Viral swab was negative for COVID/flu/ RSV. His urine drug screen was positive for benzodiazepines, patient takes alprazolam at home. Patient was admitted for observation. [facility] Past Medical History Medical History Pulmonary embolism After cholecystectomy in 1991 Migraines Bipolar disorder Morbid obesity with BMI of 40.0-44.9, adult Necrotizing pneumonia Two thousand twenty-two Insect bite Hx MRSA infection Congestive heart failure Hypertension COPD (chronic obstructive pulmonary disease) Asthma Anxiety Depression Surgical History Surgical History History of hysterectomy for benign disease (2007) History of left oophorectomy (~2007) History of incision and drainage Several areas to left forearm for MRSA 2001 History of cholecystectomy (~1991) History of tubal ligation Family History Family History Father Valvular heart disease Mother , Mother at age 60. Diabetes mellitus Smoker Sibling Rheumatoid arthritis Has RA in her hands, sees unified communications architect. Social History Social History Social History: The patient is but lives with her boyfriend, of 26 years, and her daughter and granddaughter. She has a daughter and a son. Her oldest son She used to binge drink about once a month until she was unconscious but quit drinking alcohol around age 41. She used to smoke crack cocaine from about age 26 to age 41. She reports she started smoking in order to deal with her withdrawal from the other substances and she proceeded to smoke 1.5 packs of cigarettes per day for about 8 years but quit smoking at age 51. She works at [employer] in the [employer]. Code status: Full code Surrogate decision maker: Her son Smoking packs per day: 1.5 Smoking cigarettes per day: 30.0 Years smoked: 8 Smoking pack-years: 12.00 Smoking status: Former smoker Tobacco type: cigarettes Second hand tobacco smoke exposure: Yes Additional smoking assessment comments: Began smoking pot as a kid and quit 2018. Began smoking cigarettes after Alcohol intake: never Substance use: never Substance use type: does not use Do You Feel Safe in your Home?: Yes Lack of Transportation: No Lack of Food: Never True Current Housing: I Have Housing Concerned About Future Housing: No Difficulty Paying Gas/Electric Bills: No Difficulty Paying for Meds: No Currently Unemployed: No Education: High School Diploma/GED Difficulty w/ Childcare or Family Care: No Spiritual care concerns: No Same Day Admit/Disch: Med Pre-admit Medications Home Medications ?Medication ?Instructions ?Recorded ?Confirmed ?Type omeprazole magnesium 20 mg 20 mg PO DAILY 04/13/19 11/24/24 History tablet,delayed release (Prilosec OTC) atorvastatin 40 mg tablet 60 mg PO DAILY 06/01/21 11/24/24 History fluoxetine 40 mg capsule (Prozac) 20 mg PO BID 06/01/21 11/24/24 History multivitamin with minerals 1 tablet PO DAILY 12/01/21 11/24/24 History albuterol sulfate 90 mcg/actuation 2 puff inhalation Q4H PRN Wheezing 12/06/21 11/24/24 Rx aerosol inhaler #1 g lisinopril 40 mg tablet 40 mg PO DAILY 10/31/22 11/24/24 History metformin 500 mg tablet,extended 500 mg PO BID 09/28/23 11/24/24 History release 24 hr topiramate 50 mg tablet 50 mg PO DAILY 09/28/23 11/24/24 History alprazolam 1 mg tablet 1 mg PO BID PRN Anxiety 07/29/24 11/24/24 History aspirin 81 mg tablet,delayed 81 mg PO QAM #30 tabs 07/31/24 11/24/24 Rx release atorvastatin 20 mg tablet 20 mg PO DAILY 08/12/24 11/24/24 History lidocaine 5 % topical patch 1 patch topical DAILY PRN pain #15 11/05/24 11/24/24 Rx ea olanzapine 7.5 mg tablet 7.5 mg PO HS 11/24/24 11/24/24 History Review of Systems Review of Systems All systems reviewed & are unremarkable except as noted in HPI and below Exam Const: General: comfortable and no acute distress HENMT: Face/Nose/Sinus: Normal nares present Mouth: Yes moist mucous membranes Eyes: General: appearance normal, both eyes and all related structures Sclera: sclerae normal Neck: Neck: supple Resp: Effort & Inspection: normal respiratory effort Auscultation: clear to auscultation bilaterally Cardio: Rate: regular rate Rhythm: regular rhythm GI: GI Palp: Yes Soft to palpation Auscultation: normal bowel sounds Skin: General skin exam: normal color and no rashes or lesions noted Neuro: General: gait normal Speech: normal speech Motor exam (neuro): 5/5 motor strength present throughout Sensory Exam: normal sensation Extrem: General: normal to inspection Psych: Mental Status: mental status grossly normal Affect: normal affect DS: Data Data Completed and Pending Labs on day of discharge: Labs from last 24 hours 11/25/24 11/25/24 11/25/24 09:53 09:09 03:48 WBC RBC Hgb Hct MCV MCH MCHC RDW Plt Count MPV Immature Gran % (Auto) Neut % (Auto) Lymph % (Auto) [place] % (Auto) Eos % (Auto) Baso % (Auto) Lymph # (Auto) [place] # (Auto) Eos # (Auto) Baso # (Auto) Abs Immat Gran (auto) Absolute Neuts (auto) Absolute Nucleated RBC Nucleated RBC % Sodium Potassium Chloride Carbon Dioxide Anion Gap BUN Creatinine Estim Creat Clear Calc Estimated GFR Glucose Calculated Osmolality Calcium Magnesium Total Bilirubin AST ALT Alkaline Phosphatase Troponin I < 0.012 < 0.012 NT-Pro-B Natriuret Pep Total Protein Albumin Lipase Urine Opiates Screen Negative Urine Methadone Screen Negative Ur Barbiturates Screen Negative Ur Phencyclidine Scrn Negative Ur Amphetamine Screen Negative U Benzodiazepines Scrn Positive A Urine Cocaine Screen Negative U Cannabinoids Screen Negative Influenza A (RT-PCR) Influenza B (RT-PCR) RSV (RT-PCR) SARS-CoV-2 RNA (RT-PCR) 11/24/24 11/24/24 18:38 18:26 WBC 8.9 RBC 4.27 Hgb 12.0 Hct 38.1 MCV 89.2 MCH 28.1 MCHC 31.5 L RDW 13.3 Plt Count 285 MPV 10.3 Immature Gran % (Auto) 0.3 H Neut % (Auto) 67.4 Lymph % (Auto) 23.6 [place] % (Auto) 5.7 Eos % (Auto) 2.7 Baso % (Auto) 0.3 Lymph # (Auto) 2.10 [place] # (Auto) 0.51 Eos # (Auto) 0.24 Baso # (Auto) 0.03 Abs Immat Gran (auto) 0.03 H Absolute Neuts (auto) 5.99 Absolute Nucleated RBC 0.00 Nucleated RBC % 0.0 Sodium 139 Potassium 3.9 Chloride 107 Carbon Dioxide 22 Anion Gap 10 BUN 8 Creatinine 0.51 L Estim Creat Clear Calc 135 Estimated GFR > 60 Glucose 132 H Calculated Osmolality 288 Calcium 9.0 Magnesium 1.8 Total Bilirubin 0.5 AST 30 ALT 27 Alkaline Phosphatase 103 Troponin I < 0.012 NT-Pro-B Natriuret Pep < 20 Total Protein 8.0 Albumin 4.1 Lipase 71 Urine Opiates Screen Urine Methadone Screen Ur Barbiturates Screen Ur Phencyclidine Scrn Ur Amphetamine Screen U Benzodiazepines Scrn Urine Cocaine Screen U Cannabinoids Screen Influenza A (RT-PCR) Negative Influenza B (RT-PCR) Negative RSV (RT-PCR) Negative SARS-CoV-2 RNA (RT-PCR) Negative Imaging Radiologist's impression: Ordering Physician: Issac Bowser DO Date of Service: 11/24/24 Procedure(s): XR chest 1V portable Accession Number(s): [id number] cc: Issac Bowser DO; Lea, Herb Liang APRN~ XR chest 1V portable INDICATION:chest pressure . REFERENCE: None FINDINGS: A single AP of the chest demonstrates normal heart size. There are interstitial and groundglass opacities bilaterally left greater than right. There is no evidence of pneumothorax or pleural effusion. IMPRESSION: Interstitial groundglass opacities bilaterally may represent pulmonary congestion. Reviewed, dictated and finalized at location S. DS: Summary Hospital Course Reason for hospitalization: Chest pain Hospital Course: Patient is a 59-year-old female with past medical history of bipolar disorder, COPD, obesity, and GERD, hyperlipidemia and possible recent CVA. Patient presents to the ER with complaints of chest pain that she described as pressure on her chest with some associated mild dyspnea. Patient reports that she had a positive Lexiscan a few months ago for heart catheterization was negative. Patient was treated with TNK a week ago for a possible CVA. In the ER the patient's EKG showed NSR with a rate of [address] elevation/depression. Patient was given nitroglycerin and pain went from an 8-2. Chest x-ray does show interstitial ground-glass opacities bilaterally which may represent pulmonary congestion. patient was given a GI cocktail and continued to have slight chest pressure. patient's BNP was less than 20. Patient's initial troponin was negative and two repeat troponins remain negative. Viral swab was negative for COVID/flu/ RSV. His urine drug screen was positive for benzodiazepines, patient takes alprazolam at home. Patient was admitted for observation. patient was monitored on telemetry without any acute events overnight. Patient reports her chest pain has resolved. Patient has remained on room air. Patient will be discharged home with follow-up with her PCP within 1-2 weeks of discharge. Patient also instructed to follow up with her crane operator cab within 1-2 weeks of discharge. Time Spent with Patient Time attestation: Total time spent providing and/or coordinating discharge services: 25 Minutes DS: Admitting Diagnosis Discharge Date 11/25/2024 Admitting Diagnosis chest pain DS: Discharge Diagnosis Discharge Diagnosis (1) Chest pain: Code(s): R07.9 - Chest pain, unspecified Status: Acute Assessment and Plan: patient was in the chest pain with associated dyspnea EKG without acute ST changes Troponin negative x3 S/p nitroglycerin with improvement in chest pain per patient she had a recent positive Lexiscan with a negative heart catheterization continue home atorvastatin and aspirin Monitor on telemetry overnight with no acute events Patient reports chest pain has resolved Discharge home with follow-up with PCP and crane operator cab within 1-2 weeks (2) Bipolar disorder: Code(s): F31.9 - Bipolar disorder, unspecified Status: Acute Assessment and Plan: continue home alprazolam and olanzapine (3) COPD (chronic obstructive pulmonary disease): Code(s): J44.9 - Chronic obstructive pulmonary disease, unspecified Status: Acute Assessment and Plan: no acute exacerbation Continue home albuterol inhaler as needed (4) Hypertension: Code(s): I10 - Essential (primary) hypertension Status: Acute Assessment and Plan: continue home lisinopril (5) Dyslipidemia: Code(s): E78.5 - Hyperlipidemia, unspecified Status: Acute Assessment and Plan: continue home atorvastatin Discharge Plan Discharge Attending physician on discharge: Leonel Park Consulting providers: Belkis Braxton; Jeffery Flores; Ovi Morales Discharging Clinician: Belkis Braxton Patient Disposition: Home Activity: as tolerated Diet: heart healthy Discharge Instructions: Please keep your follow up appointment with your crane operator cab Dr. Flores this coming up Sunday11/28/2024 Patient Instructions: Antibiotic Form, Chest Pain (DC), Heart Healthy Diet (DC) Patient Language: Lebanese Stand Alone Forms: General Discharge Information Follow-up/Referrals: Lea,Herb Liang NP [Primary Care Provider, Family Practice] Referral Note: Please call for an appt to be seen within 1-2 weeks of discharge Discharge Medications: Continued omeprazole magnesium [Prilosec OTC] 20 mg Tablet,Delayed Release (Dr/Ec) 20 mg PO DAILY lisinopril 40 mg tablet 40 mg PO DAILY fluoxetine [Prozac] 40 mg capsule 20 mg PO BID atorvastatin 40 mg tablet 60 mg PO DAILY metformin 500 mg tablet extended release 24 hr 500 mg PO BID topiramate 50 mg tablet 50 mg PO DAILY olanzapine 7.5 mg tablet 7.5 mg PO HS atorvastatin 20 mg tablet 20 mg PO DAILY multivitamin with minerals Tablet 1 tablet PO DAILY albuterol sulfate 90 mcg/actuation HFA aerosol inhaler 2 puff INHALATION Q4H PRN (Reason: Wheezing) Qty: 1 0RF alprazolam 1 mg tablet 1 mg PO BID PRN (Reason: Anxiety) aspirin 81 mg Tablet,Delayed Release (Dr/Ec) 81 mg PO QAM Qty: 30 0RF lidocaine 5 % adhesive patch,medicated 1 patch topical DAILY PRN (Reason: pain) Qty: 15 0RF Rx Instructions: leave on most painful area for up to 12 hrs Discontinued olanzapine 10 mg tablet 10 mg PO HS naproxen 500 mg tablet 500 mg PO BID Qty: 14 0RF Rx Instructions: take with meals Date of admission: 11/24/24 22:31 Primary Care Provider: LeaHerb Admitting Provider: Leonel Park Attending physician on admission: Leonel Park Condition: Stable Quality VTE Prophylaxis VTE prophylaxis: mechanical ordered
--- NOTE | 2024-11-25 11:40 | PC.NURSE ---
Patient discharged to home. Educated on all discharge instructions/DrAlisa Appointments/medication side effects and patient voiced understanding with no questions. Daughter to meet her outside in family vehicle. Patient leaves facility at 1135 via WC to family vehicle and she walked unassisted to front seat of car. No complaints of pain/distress/SOB.
--- NOTE | 2024-11-26 10:30 | PC.NURSE ---
Discharge call back attempted, no answer
--- NOTE | 2024-11-28 10:57 | PC.NURSE ---
Unable to complete DC call back, phone rings so long then shuts off, unable to leave message.
== END 2024-11-25 11:35 | disposition home or self-care (01) ==
LOC: CHSED 20:02 → CHS2ND 11-25 07:12
PROVIDERS: Nurse Practitioner Adult Health; Admitting Provider Internal Medicine; Emergency Provider Family Medicine; PCP Nurse Practitioner Family; Visit Provider Internal Medicine
DX: R06.00 Dyspnea, unspecified (principal); R91.8 Other nonspecific abnormal finding of lung field; J44.9 Chronic obstructive pulmonary disease, unspecified; J45.901 Unspecified asthma with (acute) exacerbation; I11.0 Hypertensive heart disease with heart failure; I50.9 Heart failure, unspecified; E83.42 Hypomagnesemia; E78.5 Hyperlipidemia, unspecified; K21.9 Gastro-esophageal reflux disease without esophagitis; F31.9 Bipolar disorder, unspecified; F41.8 Other specified anxiety disorders; E66.01 Morbid (severe) obesity due to excess calories; Z68.41 Body mass index [BMI] 40.0-44.9, adult; Z20.822 Contact with and (suspected) exposure to COVID-19; Z86.14 Personal history of Methicillin resistant Staphylococcus aureus infection; Z86.711 Personal history of pulmonary embolism; Z87.891 Personal history of nicotine dependence; Z90.49 Acquired absence of other specified parts of digestive tract; Z90.710 Acquired absence of both cervix and uterus; Z79.84 Long term (current) use of oral hypoglycemic drugs; Z79.1 Long term (current) use of non-steroidal anti-inflammatories (NSAID); Z79.82 Long term (current) use of aspirin; Z82.61 Family history of arthritis; Z83.3 Family history of diabetes mellitus; Z82.49 Family history of ischemic heart disease and other diseases of the circulatory system
CPT/HCPCS: 36415; 71045; 80053; 80307; 83690; 83735; 83880; 84484; 85025; 87637; 93005; 99285; A9270; G0378

== ENCOUNTER 2024-12-30 06:55 | Observation (INO) | payer OTHER, SELFPAY ==
[2024-12-30] VITALS (37 sets, daily range): BP systolic 94–123; BP diastolic 59–95; PULSE 85–123; RESP 16–32; TEMP 36.2–36.7; O2SAT 91–98
--- NOTE | ~2024-12-30 | XR_ITS ---
Examination: XR chest 1V portable Clinical History: sob Comparison: 11/24/2024 Technique: Portable AP Findings: Heart size normal. Persistent increased interstitial markings left lung. Increased interstitial markings and/or opacities right lower lobe. No acute bony abnormality. IMPRESSION: 1. Persistent interstitial pulmonary edema and/or pneumonitis. 2. Developing airspace disease right lower lobe. Reviewed, dictated and finalized at location R. GER PLANNING
--- NOTE | ~2024-12-30 | CT_ITS ---
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 Hypoxia. TECHNIQUE: Computed tomographic angiography (CTA) of the chest was performed with 100 mL Omnipaque-350 intravenous contrast. The dose-length product was 775.81 mGy-cm. Maximum intensity projection 3D-reconstructions of the aorta and other arteries were constructed by the technologist on a separate workstation. COMPARISON: CT dated 01/16/2024. FINDINGS: Study is suboptimal due to motion artifact. No large central pulmonary embolism. No significant pleural or pericardial effusion. Small hiatal hernia. No thoracic lymphadenopathy. There is patchy airspace consolidation in the right middle and lower lobe, consistent with pneumonia. No endobronchial lesions. No pneumothorax. No thoracic lymphadenopathy. Status post cholecystectomy. 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 There is levoscoliosis of the thoracic spine. Mild thoracic spondylosis. IMPRESSION: 1. Patchy right middle and lower lobe airspace disease, compatible with pneumonia. 2: No large central pulmonary embolism. Study limited due to motion. Reviewed, dictated and finalized at location O. PROFILING MACHINE SET UP OPERATOR IMPRESSION: 1. Patchy right middle and lower lobe airspace disease, compatible with pneumon ia. 2: No large central pulmonary embolism. Study limited due to motion.
--- NOTE | 2024-12-30 06:56 | ECG_ITS ---
Test Date: 2024-12-30 07:01:23 Measurements Intervals [place] Rate: 115 P: 37 GA: 140 QRS: 45 QRSD: 94 T: 53 QT: 312 QTc: 432 Interpretive Statements SINUS TACHYCARDIA LOW QRS VOLTAGE IN EXTREMITY LEADS [QRS DEFLECTION < 0.5 mV IN LIMB LEADS] ABNORMAL RHYTHM ECG Compared to ECG 11/24/2024 18:03:01 HEART RATE INCREASED, NO OTHER SIGNIFICANT CHANGE Electronically Signed On 12-30-2024 17:39:24 SCRAP SHEAR OPERATOR by Miguel Balbuena M.D.
--- OUTSIDE RECORDS SUMMARY | 2024-12-30 06:58 | XMS_ITS | Encounter Summary ---
Author Organization [facility] Address [facility] [place] [address] Care Team Providers Care Basket Patcher Name Role Phone Rhianna Shepard Primary Care Provider [phone] Encounter Details Date Type Department Care Team (Late st Contact Info) Description 07/13/2018 Abstract [facility] CONVERSION [address] [place] [place] [address] , Generic Conversion, Social History Tobacco Use [...] on filedocumented in this encounter Care Teams Basket Patcher Relationship Specialty Start Date End Date Rhianna Shepard PA [address] [place] [address] PCP - General PHYSICIAN SENIOR ANALYST 11/18/19 documented as of this encounter
--- OUTSIDE RECORDS SUMMARY | 2024-12-30 06:58 | XMS_ITS | Clinical Summary ---
Author Organization [facility] [employer] Address [address] [place] [address] Care Team Providers Care Endband Cutter Hand Name Role Phone Herb Tate BRAKE LINING FINISHER ASBESTOS-CARE MANAGEMENT ASSISTANT Primary Care Provider [phone] Source Comments [facility] [employer],non-[facility] Affiliates and Associated Physician Practices is amultiple site organization consisting of ambulatory clinics and hospital sitesin [place], [place], [place] and [place]. This disclosure is being madepursuant to the Care Everywhere program and may not contain all information available regarding this patient. Last updated 17.[facility] [employer] Allergies Active Allergy Reactions Criticality Noted Date Comments Atropine Dizziness 06/09/2024 Cyclobenzaprine Shortness of Breath High 06/09/2024 Medications * Be aware that medications may not be up to date on this document. Alwaysverify current medications with the patient. ALPRAZolam (Xanax) 1 MG tablet Take 1 (one) tablet by mouth 3 times daily as needed for anxiety Active topiramate (Topamax) 50 MG tablet Take [...] (one) tablet by mouth once daily Active albuterol (Proventil;Sukhwinder phil) (5 MG/ML) 0.5% nebulizer solution Inhale 0.5 mL by mouth Active albuterol HFA (Proventil; Ventolin; Proair) 108 (90 Base) MCG/ACT inhaler Inhale 2 (two) puffs by mouth every 6 hours as needed Active aspirin EC (Ecotrin) 81 MG tabletIndication s:Cerebrovascula r accident (CVA), unspecified mechanism (HCC) Every Morning 5 Active Blood Glucose Monitoring Suppl (Contour Plus Blue) w/Device KIT 5 Active celecoxib (CeleBREX) 100 MG capsule 5 Active Cholecalciferol 125 MCG (5000 UT) Take 125 mcg by mouth once daily Active cyclobenzaprine (Flexeril) 10 MG tablet THREE TIMES A DAY as needed for muscle spasm 5 Active Contour Plus Test test strip 5 Active ketorolac (Toradol) 10 MG tablet TAKE 1 TABLET BY MOUTH EVERY 8 HOURS NEEDED AFTER A MEAL FOR PAIN 5 Active levocetirizine (Xyzal) 5 MG tablet Take 1 (one) tablet by mouth Active lidocaine (Lidoderm) 5 % patch DAILY as needed for pain 5 Active Klayesta 770540 UNIT/GM powder APPLY 1 APPLICATION TOPICALLY TWICE DAILY FOR 7 DAYS Active nystatin (Mycostatin) 280986 UNIT/GM cream APPLY TOPICALLY TO THE AFFECTED AREA TWICE DAILY FOR 7 DAYS 5 Active ondansetron (Zofran) 4 MG tablet Take 1 (one) tablet by mouth every 8 hours as needed Active tiotropium (Spiriva Respimat) 2.5 MCG/ACT inhaler Inhale 2 (two) puffs by mouth once daily Active nitroGLYCERIN (Nitrostat) 0.4 MG tabletIndication s:Cerebrovascula r accident (CVA), unspecified mechanism (HCC) Dissolve 1 (one) tablet under the tongue every 5 minutes as needed for Angina 100 tablet 3 5 Active Active Problems Problem Noted Date Diagnosed Date PFO (patent foramen ovale) 11/28/2024 Dyspnea on exertion 11/28/2024 Right sided weakness 11/15/2024 Dysarthria 11/15/2024 Acute respiratory insufficiency 11/15/2024 Electrolyte imbalance 11/15/2024 Numbness and tingling of both legs 11/15/2024 Weakness 11/14/2024 Cerebrovascular accident [facility]CVA), [facility]14/[facility]24 Encounters Date Type Department Care Team Description 12/19/2024 6:35 AM SPECIMEN BOSS - 12/19/2024 11:59 PM SPECIMEN BOSS Hospital Encounter [facility] - Cardiac Database Programmer Analyst [address] [place] [address] Sussy Kaur MD Discharge Disposition: Home or Self Care 12/19/2024 Travel 12/08/2024 Transcribe Orders [facility] - Centralized Scheduling [address] [place] [id number] Herb Tate, BRAKE LINING FINISHER ASBESTOS-CARE MANAGEMENT ASSISTANT Transient neurological symptoms 11/28/2024 10:00 AM CDT Office Visit [facility] - Cardiology [address] [facility], [facility] [address] [place] [phone] Sussy Kaur MD Cerebrovascular accident (CVA), unspecified mechanism (HCC) (Primary Dx) 11/28/2024 Travel 11/25/2024 Travel 11/14/2024 7:37 PM CDT - 11/16/2024 5:57 PM CDT Hospital Encounter [facility] 3N ICU [address] [place] [address] Dustin Singh MD Edgell, Randall C, MD Neurology Discharge Disposition: Home or Self Care 11/14/2024 Travel from Last 3 Months Social History Tobacco Use Types Packs/Day Years Used Date Smoking Tobacco: Former Cigarettes 0 Q uit: 11/2024 Smokeless Tobacco: Never Tobacco Cessation:Counseling Given: No Alcohol Use Standard Drinks/Week Comments Never 0 (1 standard drink = 0.6 oz pur e alcohol) PHQ-2 Answer Date Recorded Patient Health Questionnaire-2 Score 0 11/16/2024 AUDIT-C Answer Date Recorded Q1: How often do you have a drink containing alcohol? Never 12/19/2024 Q2: How many drinks containi ng alcohol do you have on a typical day when you are drinking? Patient does not drink Q3: How often do you have si x or more drinks on one occasion? Never 12/19/2024 Overall Financial Resource Strain (CARDIA) Answe r Date Recorded How hard is it for you to pa y for the very basics like food, housing, medical care, and heating? Not hard at all 11/15/2024 [facility] - Occupational Stress [...] any time in the past 12 m [facility], were you homeless or living in a halfway (including now)? No 11/15/2024 Comments No Sex and Gender Information Value Date Recorded Sex Assigned at Not on file Legal Sex Female 5:58 PM SPECIMEN BOSS Gender Identity Not on file Sexual Orientation Not on file Last Filed Vital Signs Vital Sign Reading Time Taken Comments Blood Pressure 109/59 12/19/2024 10:45 AM SPECIMEN BOSS Pulse 74 12/19/2024 10:45 AM SPECIMEN BOSS Temperature 36.4 C (97.6 F) 12/19/2024 10:12 AM SPECIMEN BOSS Respiratory Rate 13 12/19/2024 10:45 AM SPECIMEN BOSS Oxygen Saturation 95% 12/19/2024 10:45 AM SPECIMEN BOSS Inhaled Oxygen Concentration - - Weight 124.7 kg (275 lb) 12/19/2024 7:40 AM SPECIMEN BOSS Height 167.6 cm (5' 6) 12/19/2024 7:40 AM SPECIMEN BOSS Body Mass Index 44.39 12/19/2024 7:40 AM SPECIMEN BOSS Plan of Treatment Upcoming Encounters Date Type Department Care Team (Late st Contact Info) Description 12/31/2024 4:40 PM SPECIMEN BOSS Video Visit [facility] - Cardiology [address] [phone] Sussy Kaur MD [facility] [address] [address] 01/05/2025 3:00 PM SPECIMEN BOSS Office Visit [facility] - Neurology [address] [facility] [place] [phone] Miesha Adamson PA-C [address] [facility] [address] [place] [phone] 03/06/2025 9:20 AM SPECIMEN BOSS Office Visit [facility] - Cardiology [address] [phone] Sussy Kaur MD [address] [address] Health Maintenance Due Date Last Done Comments [...] 50+ (1 of 2 - PCV) 1985 ZOSTER VACCINE (1 of 2) 2016 MAMMOGRAM 11/17/2021 11/18/2019, 11/18/2019 COVID-19 VACCINE (5 - season) 2024 01/09/2024, 02/09/2021, 06/29/2020, Additional history exists INFLUENZA VACCINE (#1) 2024 4, 02/17/2023, 11/01/2018 SCREENING FOR DIABETES 12/20/2027 5, 12/19/2024, 11/16/2024, Additional history exists DEPRESSION SCREENING Completed 11/28/2024 HIB VACCINE Aged Out No longer eligi [...] Procedure Name Priority Date/Time Associated Diagnosis Comments ECHO MARY COMPLETE Routine 12/19/2024 10: 06 AM SPECIMEN BOSS Cerebrovascular accident (CVA), unspecified mechanism (HCC) GLUCOSE - POINT OF CARE Routine 12/19/2024 8:01 AM SPECIMEN BOSS CBC W/O DIFFERENTIAL Routine 12/19/2024 7:55 AM SPECIMEN BOSS Cerebrovascular accident (CVA), unspecified mechanism (HCC) BASIC METABOLIC PANEL (CALCIUM TOTAL) Routine 12/19/2024 7:55 AM SPECIMEN BOSS Cerebrovascular accident (CVA), unspecified mechanism (HCC) GLUCOSE - POINT OF CARE Routine 11/16/2024 [...] Weakness from Last 3 Months Results * ECHO MARY COMPLETE (12/19/2024 10:06 AM SPECIMEN BOSS) TR pk ja 244 cm/s [facility] PACS Anatomical Region Laterality Modality Ultrasound 12/19/2024 9:09 AM SPECIMEN BOSS Narrative 12/25/2024 11:33 AM SPECIMEN BOSS Summary * Left ventricular systolic function is normal with an estimated ejection fraction of 60% by visual estimate. 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 * Patent foramen ovale (PFO) with moderate left to right shunting by 2D, color Doppler and 3D imaging. * The left atrial appendage is chicken wing shaped with reduced velocity, and there is no thrombus. * No hemodynamically significant valve disease. * Grade 2 aortic atheroma in the visualized aorta. Patient Info Name: Palma Frost Age: 59 years : 1965 Gender: Female Ht: 66 in Wt: 275 lb BSA: 2.48 m2 BP: 120 / 70 mmHg Exam Date: 12/19/2024 9:09 AM Patient Status: O/P Study Site: [facility] Primary Location: [facility] EStudy Info Exam Type: ECHO MARY COMPLETE Indications I63.9 - Cerebrovascular accident (CVA), unspecified mechanism (HCC) * A complete transesophageal echo was performed using 2D, color Doppler, and spectral Doppler. Staff Referring Physician: Sussy Kaur Ordering Provider: Sussy Kaur Attending Physician: Sussy Kaur Fellow: Breonna Perez Carton Lettering Machine Operator: Fior Franz Performing Physician: Edward Mcguire Complications * There were no complications prior to, during or in recovery from the transesophageal echocardiogram. Medications * The posterior pharynx was sprayed with Cetacaine spray and the patient was administered viscous Xylocaine 2% by mouth. * The patient was premedicated with 2.00 mg intravenous Versed. * The patient was premedicated with 50.00 mcg intravenous Fentanyl. Procedure Details The patient arrived in a fasting state after obtaining informed consent. The transesophageal probe was passed without difficulty into the posterior pharynx, mid-esophagus, distal esophagus, and gastric fundus. Imaging was performed at multiple levels. The patient tolerated the procedure well and there were no complications. The patient was transferred out of the examination area in satisfactory condition. Probe passed by the land management forester without difficulty. Left Ventricle The left ventricle is normal in size. Left ventricular systolic function is normal with an estimated ejection fraction of 60% by visual estimate. Right Ventricle Right ventricular systolic function is grossly normal. Ventricular Septum Intact interventricular septum visualized by 2D imaging. Left Atrium No mass or thrombus formation in the left atrium. Right Atrium No mass or thrombus formation in the right atrium. 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 Patent foramen ovale (PFO) with moderate left to right shunting by 2D, color Doppler and 3D imaging. Atrial Appendage The left atrial appendage is chicken wing shaped with reduced velocity, and there is no thrombus. Aortic Valve The aortic valve is trileaflet. There is no aortic valve stenosis. There is no aortic valve regurgitation. Pulmonic Valve The pulmonic valve is not well visualized, but grossly normal. There is no pulmonic valve stenosis. There is no pulmonic regurgitation. Mitral Valve The mitral valve is normal. There is no mitral valve stenosis. There is no significant mitral valve regurgitation. Tricuspid Valve The tricuspid valve is normal. There is no tricuspid valve stenosis. There is mild tricuspid valve regurgitation. Pulmonary Veins Normal flow patterns noted in the pulmonary veins. Aorta Grade 2 aortic atheroma in the visualized aorta. Measurements Tricuspid Valve Name Value Normal TV Regurgitation Doppler TR Peak Velocity 2.4 m/s TR Peak Gradient 24 mmHg Report Signatures Finalized by Edward Mcguire on 12/25/2024 11:33 AM Reviewed by Fellow Breonna Perez on 12/19/2024 11:04 AM Procedure Note Edward Mcguire MD - 12/25/2024 Summary * Left ventricular systolic function is normal with an estimatedejection fraction of 60% by visual estimate. 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 * Patent foramen ovale (PFO) with moderate left to right shunting by2D, color Doppler and 3D imaging. * The left atrial appendage is chicken wing shaped with reducedvelocity, and there is no thrombus. * No hemodynamically significant valve disease. * Grade 2 aortic atheroma in the visualized aorta. Patient Info Name: Palma Frost Age: 59 years : 1965 Gender: Female Ht: 66 in Wt: 275 lb BSA: 2.48 m2 BP: 120 / 70 mmHg Exam Date: 12/19/2024 9:09 AM Patient Status: O/P Study Site: [facility] Primary Location: [facility] EStudy Info Exam Type: ECHO MARY COMPLETE Indications I63.9 - Cerebrovascular accident (CVA), unspecified mechanism (HCC) * A complete transesophageal echo was performed using 2D, color Doppler,and spectral Doppler. Staff Referring Physician: Sussy Kaur Ordering Provider: Sussy Kaur Attending Physician: Sussy Kaur Fellow: Breonna Perez Carton Lettering Machine Operator: Fior Franz Performing Physician: Edward Mcguire Complications * There were no complications prior to, during or in recovery from the transesophageal echocardiogram. Medications * The posterior pharynx was sprayed with Cetacaine spray and the patientwas administered viscous Xylocaine 2% by mouth. * The patient was premedicated with 2.00 mg intravenous Versed. * The patient was premedicated with 50.00 mcg intravenous Fentanyl. Procedure Details The patient arrived in a fasting state after obtaining informedconsent. The transesophageal probe was passed without difficulty into theposterior pharynx, mid-esophagus, distal esophagus, and gastric fundus. Imagingwas performed at multiple levels. The patient tolerated the procedure welland there were no complications. The patient was transferred out of the examination area in satisfactory condition. Probe passed by thecardiologist without difficulty. Left Ventricle The left ventricle is normal in size. Left ventricular systolic functionis normal with an estimated ejection fraction of 60% by visual estimate. Right Ventricle Right ventricular systolic function is grossly normal. Ventricular Septum Intact interventricular septum visualized by 2D imaging. Left Atrium No mass or thrombus formation in the left atrium. Right Atrium No mass or thrombus formation in the right atrium. 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 Patentforamen ovale (PFO) with moderate left to right shunting by 2D, color Doppler and3D imaging. Atrial Appendage The left atrial appendage is chicken wing shaped with reduced velocity,and there is no thrombus. Aortic Valve The aortic valve is trileaflet. There is no aortic valve stenosis. Thereis no aortic valve regurgitation. Pulmonic Valve The pulmonic valve is not well visualized, but grossly normal. There isno pulmonic valve stenosis. There is no pulmonic regurgitation. Mitral Valve The mitral valve is normal. There is no mitral valve stenosis. There isno significant mitral valve regurgitation. Tricuspid Valve The tricuspid valve is normal. There is no tricuspid valve stenosis.There is mild tricuspid valve regurgitation. Pulmonary Veins Normal flow patterns noted in the pulmonary veins. Aorta Grade 2 aortic atheroma in the visualized aorta. Measurements Tricuspid Valve Name Value Normal TV Regurgitation Doppler TR Peak Velocity 2.4 m/s TR Peak Gradient 24 mmHg Report Signatures Finalized by Edward Mcugire on 12/25/2024 11:33 AM Reviewed by Fellow Breonna Preez on 12/19/2024 11:04 AM us Sussy Kaur MD ECHO [place] Final Resul t * (ABNORMAL) GLUCOSE - POINT OF CARE (12/19/2024 8:01 AM SPECIMEN BOSS) Only the most recent of7 resultswithin the time period is included. Glucose WB/POC 102(H) 70 - 99 mg/dL 12/19/2024 8:06 AM [facility] Specimen Type Venous 12/19/2024 8:06 AM [facility] Blood BLOOD SPECIMEN / Unknown 12/19/2024 8:01 AM SPECIMEN BOSS 12/19/2024 8:06 AM SPECIMEN BOSS us Sussy Kaur MD LAB - POINT OF CARE ORDERAB LES Final Result [facility] [address] [place] [address], [facility] [phone] * CBC W/O DIFFERENTIAL (12/19/2024 7:55 AM SPECIMEN BOSS) Only the most recent of3 resultswithin the time period is included. WBC 7.5 4.0 - 10.7 x10E9/L 12/19/2024 8:13 AM [facility] RBC Count 4.44 3.90 - 5.20 x10E12/L 12/19/2024 8:13 AM [facility] Hemoglobin 12.6 11.9 - 15.8 g/dL 12/19/2024 8:13 AM [facility] Hematocrit 38.3 34.8 - 46.1 % 12/19/2024 8:13 AM [facility] MCV 86.3 80.0 - 98.0 fL 12/19/2024 8:13 AM [facility] MCH 28.4 26.7 - 33.6 pg 12/19/2024 8:13 AM [facility] MCHC 32.9 31.7 - 36.3 g/dL 12/19/2024 8:13 AM [facility] RDW-CV 13.7 11.3 - 14.8 % 12/19/2024 8:13 AM [facility] Platelet Count 320 150 - 420 x10E9/L 12/19/2024 8:13 AM [facility] MPV 9.6 7.8 - 11.4 fL 12/19/2024 8:13 AM [facility] Blood BLOOD SPECIMEN / Unknown Venipuncture / Unknown 12/19/2024 7:55 AM SPECIMEN BOSS 12/19/2024 8:10 AM SPECIMEN BOSS us Sussy Kaur MD LAB - HEMATOLOGY ORDERABLES Final Result [facility] [address] [place] [address], [facility] [phone] * (ABNORMAL) BASIC METABOLIC PANEL (CALCIUM TOTAL) (12/19/2024 7:55 AM [facility]) Only the most recent of3 resultswithin the time period is included. BUN 13 7 - 26 mg/dL 12/19/2024 8:43 AM [facility] Creatinine 0.50(L) 0.56 - 0.96 mg/dL 12/19/2024 8:43 AM [facility] Sodium 140 136 - 145 mmol/L 12/19/2024 8:43 AM [facility] Potassium 4.2 3.5 - 4.5 mmol/L 12/19/2024 8:43 AM [facility] Chloride 107 98 - 107 mmol/L 12/19/2024 8:43 AM [facility] CO2 25 22 - 29 mmol/L 12/19/2024 8:43 AM [facility] Glucose 94 70 - 99 mg/dL 12/19/2024 8:43 AM [facility] Calcium 9.2 8.4 - 10.2 mg/dL 12/19/2024 8:43 AM [facility] Anion Gap 8 6 - 16 12/19/2024 8:43 AM [facility] BUN/Creatinine Ratio 26(H) 7 - 23 12/19/2024 8:43 AM [facility] Osmolality Calculated 290 275 - 295 mOsm/kg 12/19/2024 8:43 AM [facility] eGFR by CKD-EPI >90 >=90 mL/min/1.7 3 m2 12/19/2024 8:43 AM [facility] Comment:Estimated Glomerular Filtration Rate (eGFR) calculated using the CKD-EPI Creatinine Equation (2020), per the National Kidney Foundation and [place] Society of Nephrology recommendations. Blood BLOOD SPECIMEN / Unknown Venipuncture / Unknown 12/19/2024 7:55 AM SPECIMEN BOSS 12/19/2024 8:10 AM SPECIMEN BOSS us Sussy Kaur MD LAB - CHEMISTRY ORDERABLES Final Result Performing Organization Address City/[facility]/ZIP Co de Phone Number [address] [address], [place] [phone] * HEMOGLOBIN A1C (11/16/2024 4:45 AM CDT) Only the most recent of2 resultswithin the time period is included. Hemoglobin A1c 5.6 <=5.6 % 11/16/2024 8:51 AM CDT [facility]OR[facility] Estimated Average Glucose 114 mg/dL 11/16/2024 8:51 AM CDT [facility] Comment: HbA1c Interpretation: Normal : < 5.7% Pre-diabetes: 5.7-6.4% Diabetes: Equal to or greater than 6.5% Test results diagnostic of diabetes should be repeated for confirmation. Treatment target values recommended by ADA and other clinical organizations should be used to evaluate metabolic control in patients. Reference: [place] Diabetes Association, Standards of Care in Diabetes -2020 In patients 70 years and older consider HbA1c target range of 7.0-7.5% (Reference: Ko Escoto et al. JAMDA. 2012) The Sebia assay for the measurement of HbA1c is a National Glycohemoglobin Standardization Program (NGSP) certified method. Blood BLOOD SPECIMEN / Unknown Venipuncture / Unknown 11/16/2024 4:45 AM CDT 11/16/2024 5:20 AM CDT us Jose Hill APRN-BEE LAB - CHEMISTRY ORDERABLE S Final Result [address] [address], [place] [phone] * CT HEAD NON CONTRAST (11/15/2024 5:08 PM CDT) Anatomical Region Laterality Modality Head Computed Tomogra phy 11/15/2024 7:27 PM CDT Impressions 11/15/2024 8:38 PM CDT IMPRESSION: 1.No acute intracranial hemorrhage, midline shift, or significant mass effect. Report was dictated by Jamison Camp MD, ([facility] resident) 11/15/2024 7:27 PM > Dictated by Jamison Camp MD 11/15/2024 7:27 PM > Dictated by Screen Printing Inspector IAna Laura MD have personally reviewed and interpreted this examination/study. > Interpreting Provider: Ana Laura Mahan MD on 11/15/2024 8:38 PM Narrative 11/15/2024 8:38 PM CDT PROCEDURE: CT HEAD WO CONTRAST, DATE/TIME OF EXAM: 11/15/2024 5:09 PM, LOCATION [facility] INDICATION: I63.9: Cerebrovascular accident (CVA), unspecified [...] DATE/TIME OF EXAM: 11/15/2024 5:09 PM, LOCATION [facility] INDICATION: I63.9: Cerebrovascular accident (CVA), unspecified [...] MD 11/15/2024 7:27 PM > Dictated by Screen Printing Inspector IAna Laura MD have personally reviewed and interpretedthis examination/study. > Interpreting Provider: Ana Laura Mahan MD on 11/15/2024 8:38 PM Dustin Singh MD CT ORDERABLES Final Result [...] I PACS LVIDs 2.831 cm [facility] I PACS LVOT diam 2.27 cm [facility] I PACS LVPWd 1.185 cm [facility] I PACS LV biplane EF 62.413 % [facility] CV [facility]I PACS LV A2C EF 58.211 % [facility] I PACS LV A4C EF 66.353 % [facility] I PACS LV EDV A2C 77.806 ml [facility] CV FU JI PACS LV EDV A4C 81.88 ml [facility] CV [facility]U JI PACS LV ESV A2C 32.514 ml [facility] CV [facility]U JI PACS LV ESV A4C 27.55 ml [facility] CV [facility] JI PACS LVOT pk grad 3.637 mmHg [facility] LVOT pk ja 95.356 cm/s [facility] CV F UJI PACS LVOT VTI 19.431 cm [facility] I PACS RV-dow basal diam 2.745 cm [facility] P[facility] RVIDd 3.357 cm [facility] I PACS RVOT diam Doppler 1.999 cm SS [facility] P[facility] RVOT pk ja 87.224 cm/s [facility] CV F UJI PACS RVOT VTI 16.789 cm [facility] I PACS LA size 4.129 cm [facility] I PACS LA vol BP 46.15 ml [facility] I PACS RA area 10.25 cm [facility] P[facility] AV area pk ja 2.95 cm [facility] P[facility] AV area cont VTI 3.027 cm [facility] P[facility] AV pk grad 6.844 mmHg [facility] CV FU JI PACS AV mn grad 3.358 mmHg [facility] CV FU JI PACS AV pk ja 130.805 cm/s [facility] I PACS AV VTI 25.982 cm [facility] I PACS MV A pk ja 73.419 cm/s [facility] CV F UJI PACS MV E pk ja 83.948 cm/s [facility] CV F [facility]I PACS MV E' lateral ja 5.922 cm/s SS [facility] P[facility] MV mn grad 0.801 mmHg S[facility] [...] 10:02 AM Patient Status: I/P Study Site: [facility] Primary Location: [facility] EStudy Info Technical Quality: Technically Difficult [...] Provider: Dustin Singh Attending Physician: Dustin Singh Carton Lettering Machine Operator: Candelario Enriquez Left Ventricle The left ventricle [...] on 11/15/2024 12:16 PM Procedure Note Ana Fallon DO - 11/15/2024 Summary * Technically difficult [...] 10:02 AM Patient Status: I/P Study Site: [facility] Primary Location: [facility] Info Technical Quality: Technically Difficult Exam [...] Provider: Dustin Singh Attending Physician: Dustin Singh Carton Lettering Machine Operator: Candelario Enriquez Left Ventricle The left ventricle [...] by Ana Fallon on 11/15/2024 12:16 PM Dustin Singh MD ECHO [facility] Final Result * MRI Brain Wo Contrast [...] Melida Blanchard MD on 11/15/2024 1:41 PM us Dustin Singh MD MR ORDERABLES Final Result * TROPONIN-I HIGH SENSITIVE REFLEX 1HOUR (11/14/2024 11:10 PM CDT) Troponin I High Sensitive <3 <=14 ng/L 11/15/2024 12:07 AM T [facility]ORY [facility] Delta Troponin I HS 11/15/2024 12:07 AM T [facility] Comment:Delta value intentio sandor not calculated. Baseline to 1 hour specimen collection interval exceeded. Blood BLOOD SPECIMEN / Unknown Venipuncture / Unknown 11/14/2024 11:10 PM CDT 11/14/2024 11:33 PM CDT us Dustin Singh MD LAB - CHEMISTRY ORDERABLES Final Result [address] [address], [facility] [phone] * LIPID PROFILE (11/14/2024 11:10 PM CDT) Cholesterol Total 138 <200 mg/dL 11/15/2024 12:[address] [facility] HDL 48 >40 mg/dL 11/15/2024 12:02 AM [facility] Comment: ATP III Classification of HDL Cholesterol: <40 mg/dL: Considered a major risk factor. >60 mg/dL: Considered a negative risk factor. LDL Calculated 72 <100 mg/dL 11/15/2024 12:02 AM [facility] Comment: ATP III Classification of LDL Cholesterol: <100 mg/dL: Optimal 100 - 129 mg/dL: Near Optimal/Above Optimal 130 - 159 mg/dL: Borderline High 160 - 189 mg/dL: High >190 mg/dL: Very High LDL is calculated using the Friedewald equation. Triglycerides 88 <150 mg/dL 11/15/2024 12:02 AM CDT [facility] Comment: ATP III Classification of Triglycerides: <150 mg/dL: Normal 150 - 199 mg/dL: Borderline High 200 - 400 mg/dL: High >500 mg/dL: Very High Blood BLOOD SPECIMEN / Unknown Venipuncture / Unknown 11/14/2024 11:10 PM CDT 11/14/2024 11:33 PM CDT Dustin Singh MD LAB - CHEMISTRY ORDERABLES Final Result [address] [address], [place] [phone] * TROPONIN-I HIGH SENSITIVE BASELINE + 1HR (11/14/2024 9:27 PM CDT) Troponin I High Sensitive <3 <=14 ng/L 11/14/2024 10:44 PM CDT [facility] Blood BLOOD SPECIMEN / Unknown Venipuncture / Unknown 11/14/2024 9:27 PM CDT 11/14/2024 10:04 PM CDT Dustin Singh MD LAB - CHEMISTRY ORDERABLES Final Result Performing Organization Address [facility]/ZIP Co de Phone Number [address] [address], [place] [phone] * XR CHEST 1VW PORTABLE (11/14/2024 8:37 [...] TROPONIN-I HIGH SENSITIVE (11/14/2024 8:14 PM CDT) [facility] Troponin I High Sensitive <3 <=14 ng/L 11/14/2024 8:56 PM CDT [facility] Blood BLOOD SPECIMEN / Unknown Venipuncture / Unknown 11/14/2024 8:14 PM CDT 11/14/2024 8:20 PM CDT Ayden Alba MD LAB - CHEMISTRY ORDERABLES F inal Result [facility] [address] [place] [address], [place] [phone] * PTT (11/14/2024 8:14 PM CDT) [facility] APTT 29.6 23.0 - 38.4 Seconds 11/14/2024 8:44 PM CDT [facility] Comment:Suggested therapeuti c range for full dose I.V. unfractionated heparin therapy for venous thromboembolism is 71 to 109 seconds. Blood BLOOD SPECIMEN / Unknown Venipuncture / Unknown 11/14/2024 8:14 PM CDT 11/14/2024 8:20 PM CDT Ayden Alba MD LAB - COAGULATION ORDERABLES Final Result Performing Organization Address [facility] Co de Phone Number [facility] [address] [place] [address], [facility] [phone] * PT-INR (11/14/2024 8:14 PM CDT) PT 12.6 12.1 - 14.8 Seconds 11/14/2024 8:44 PM CDT [facility] INR 1.0 See Comment 11/14/2024 8:44 PM CDT [facility] Comment:The suggested therap eutic range for standard coumadin (warfarin) therapy is an INR of 2.0-3.0. For high-risk patients (Mechanical Mitral Valve Prosthesis, etc.), the suggested prophylactic therapeutic range is an INR of 2.5-3.5. Blood BLOOD SPECIMEN / Unknown Venipuncture / Unknown 11/14/2024 8:14 PM CDT 11/14/2024 8:20 PM CDT Ayden Alba MD LAB - COAGULATION ORDERABLES Final Result Performing Organization Address City/[facility] Co de Phone Number [address] [address], [facility] [phone] * CBC W AUTO DIFFERENTIAL (11/14/2024 8:14 PM CDT) WBC 7.4 4.0 - 10.7 x10E9/L 11/14/2024 8:28 PM CDT [facility] RBC Count 4.34 3.90 - 5.20 x10E12/L 11/14/2024 8:28 PM CDT [facility] Hemoglobin 12.5 11.9 - 15.8 g/dL 11/14/2024 8:28 PM CDT [facility] Hematocrit 37.9 34.8 - 46.1 % 11/14/2024 8:28 PM [facility] MCV 87.3 80.0 - 98.0 fL 11/14/2024 8:28 PM [facility] MCH 28.8 26.7 - 33.6 pg 11/14/2024 8:28 PM [facility] MCHC 33.0 31.7 - 36.3 g/dL 11/14/2024 8:28 PM [facility] RDW-CV 13.6 11.3 - 14.8 % 11/14/2024 8:28 PM [facility] Platelet Count 282 150 - 420 x10E9/L 11/14/2024 8:28 PM [facility] MPV 10.1 7.8 - 11.4 fL 11/14/2024 8:28 PM [facility] Neutrophil % 66.5 41.0 - 74.0 % 11/14/2024 8:28 PM [facility] Lymphocyte % 24.7 17.0 - 47.0 % 11/14/2024 8:28 PM [facility] Monocyte % 5.4 3.0 - 11.0 % 11/14/2024 8:28 PM [facility] Eosinophil % 3.0 0.0 - 7.0 % 11/14/2024 8:28 PM [facility] Basophil % 0.1 0.0 - 1.6 % 11/14/2024 8:28 PM [facility] Immature Granulocytes % 0.3 0.0 - 1.0 % 11/14/2024 8:28 PM [facility] Neutrophil Absolute 4.89 1.60 - 7.50 x10E9/L 11/14/2024 8:28 PM [facility] Lymphocyte Absolute 1.82 1.00 - 4.40 x10E9/L 11/14/2024 8:28 PM [facility] Monocyte Absolute 0.40 0.15 - 1.00 x10E9/L 11/14/2024 8:28 PM [facility] Eosinophil Absolute 0.22 0.00 - 0.60 x10E9/L 11/14/2024 8:28 PM [facility] Basophil Absolute 0.01 0.00 - 0.13 x10E9/L 11/14/2024 8:28 PM [facility] Blood BLOOD SPECIMEN / Unknown Venipuncture / Unknown 11/14/2024 8:14 PM CDT 11/14/2024 8:20 PM CDT us Ayden Alba MD LAB - HEMATOLOGY ORDERABLES Final Result [facility] [address] [place] [address], [facility] [phone] * (ABNORMAL) COMPREHENSIVE METABOLIC PANEL (11/14/2024 8:14 PM CDT) BUN 8 7 - 26 mg/dL 11/14/2024 8:52 PM [facility] Creatinine 0.55(L) 0.56 - 0.96 mg/dL 11/14/2024 8:52 PM [facility] Sodium 140 136 - 145 mmol/L 11/14/2024 8:52 PM [facility] Potassium 3.7 3.5 - 4.5 mmol/L 11/14/2024 8:52 PM [facility] Chloride 108(H) 98 - 107 mmol/L 11/14/2024 8:52 PM [facility] CO2 25 22 - 29 mmol/L 11/14/2024 8:52 PM [facility] Glucose 105(H) 70 - 99 mg/dL 11/14/2024 8:52 PM [facility] Calcium 9.3 8.4 - 10.2 mg/dL 11/14/2024 8:52 PM [facility] Protein Total 6.7 6.0 - 8.3 g/dL 11/14/2024 8:52 PM [facility] Albumin 3.7 3.4 - 5.0 g/dL 11/14/2024 8:52 PM [facility] Bilirubin Total 0.3 0.2 - 1.2 mg/dL 11/14/2024 8:52 PM [facility] Alkaline Phosphatase 150 40 - 150 U/L 11/14/2024 8:52 PM CDT [facility] ALT 23 5 - 55 U/L 11/14/2024 8:52 PM CDT [facility] AST 17 5 - 34 U/L 11/14/2024 8:52 PM T [facility] Anion Gap 7 6 - 16 11/14/2024 8:52 PM T [facility] BUN/Creatinine Ratio 15 7 - 23 11/14/2024 8:52 PM T [facility] Osmolality Calculated 289 275 - 295 mOsm/kg 11/14/2024 8:52 PM T [facility] Albumin/Globulin Ratio 1.2 1.1 - 2.3 11/14/2024 8:52 PM [facility] eGFR by CKD-EPI >90 >=90 mL/min/1.7 3 m2 11/14/2024 8:52 PM [facility] Comment:Estimated Glomerular Filtration Rate (eGFR) calculated using the CKD-EPI Creatinine Equation (2020), per the National Kidney Foundation and [place] [employer]ph[employer] recommendations. Blood BLOOD SPECIMEN / Unknown Venipuncture / Unknown 11/14/2024 8:14 PM CDT 11/14/2024 8:20 PM CDT Ayden Alba MD LAB - CHEMISTRY ORDERABLES F inal Result [facility] [address] [place] [address], [facility] [phone] * CT ANGIO BRAIN NECK STROKE (11/14/2024 [...] DATE/TIME OF EXAM: 11/14/2024 8:04 PM, LOCATION [facility] INDICATION: R53.1: Weakness ADDITIONAL CLINICAL INFORMATION: [...] STROKE, DATE/TIME OF EXAM: :04 PM, LOCATION [facility] INDICATION: R53.1: Weakness ADDITIONAL CLINICAL INFORMATION: [...] without significant focal stenosis. 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 The remaining right [...] DATE/TIME OF EXAM: 11/14/2024 7:45 PM, LOCATION [facility] INDICATION: R53.1: Weakness EXAMINATION: Computed tomography [...] DATE/TIME OF EXAM: 11/14/2024 7:45 PM, LOCATION [facility] INDICATION: R53.1: Weakness EXAMINATION: Computed tomography [...] Final Result from Last 3 Months Insurance [facility] Advance Directives * Full Code (Latest Code Status on File) Date Activated Date Inactivated Comments 11/14/2024 8:18 PM 11/16/2024 7:33 PM Care Teams Endband Cutter Hand Relationship Specialty Start Date End Date Herb Tate, BRAKE LINING FINISHER [employer]BESTOS-CARE MANAGEMENT ASSISTANT [address] [place] [id number] PCP - General Nurse Practitioner 11/14/24
--- OUTSIDE RECORDS SUMMARY | 2024-12-30 06:58 | XMS_ITS | Clinical Summary ---
Author Organization [facility] Address [facility] [place] [address] Care Team Providers Care Supervisor Brooder Farm Name Role Phone Rhianna Shepard Primary Care Provider [phone] Allergies Active Allergy Reactions Criticality Noted Date [...] Most Recently Relevant to Health Maintenance [place] [address] [place] [address] Care Teams Supervisor Brooder Farm Relationship Specialty Start Date End Date Rhianna Shepard PA [address] [place] [address] PCP - General PHYSICIAN COMMISSION AGENT LIVESTOCK 11/18/19
--- OUTSIDE RECORDS SUMMARY | 2024-12-30 06:58 | XMS_ITS | Clinical Summary ---
Author Organization [facility] Address [address] [facility] [place] [address] Phone Care Team Providers Care Golf Club Maker Name Role Phone Rhianna Shepard EVA Primary [...] Comments Hepatitis C Virus (HCV) Screening 1966 Varicella Immunization (1 of 2 - 13+ 2-dose series) 05/03/1979 Hepatitis B Immunization (1 of 3 - 19+ 3-dose series) 1985 Cologuard 05/03/2011 Colonoscopy 05/03/2011 Colorectal Cancer Screening 05/03/2011 Immunochemical Fecal Occult Blood 05/03/2011 Respiratory Syncytial Virus (RSV) Immunization (Adult) (1 - Risk 50-74 years 1-dose series) 2016 Zoster Immunization (1 of 2) 2016 Mammogram 11/17/2020 11/18/2019, 11/18/2019 Influenza Immunization (#1) 2024 12/0 05/2023, 02/17/2023, 11/01/2018 SARS-COV-2 Immunization ( season) 2024 01/09/2024, 02/09/2021, 06/29/2020, Additional history exists DTaP/Tdap/Td Immunization Discontinued 12/07/2023, 08/2022 TdaP Immunization Completed 12/07/2023, 03/14/2022 Pneumococcal Immunization (50+ years) Completed 01/09/2024 Pneumococcal Immunization Combined Discontinued 01/09/2024 Human Papillomavirus (HPV) Immunization Aged Out No longer eligible based on patient's age to complete this topic Meningococcal Immunization (ACWY) Aged Out No longer eligible based on patient's age to complete this topic Rotavirus Immunization Aged Out No lo nger eligible based on patient's age to complete this topic Insurance MEDICAID [employer] Care Teams Golf Club Maker Relationship Specialty Start Date End Date Rhianna Shepard PAC [address] [place] [address] PCP - General Advanced Practice Nurse 07/02/23
--- OUTSIDE RECORDS SUMMARY | 2024-12-30 06:58 | XMS_ITS | Clinical Summary ---
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 Care Teams Gravity Meter Operator Relationship Specialty Start Date End Date Rhianna Shepard PA [address] [place] [address] PCP - General Emergency Medicine 04/29/18
--- OUTSIDE RECORDS SUMMARY | 2024-12-30 06:58 | XMS_ITS ---
Author Organization Unknown Address [address] [place], [place] [id number] Phone Care Team Providers Care Marketing Engineer Name Role Phone ORQUIDEA HERRERA Attending Unavailable NO PCP Primary Unavailable Immunization Immunization Date Status Additional Notes Code Code System Tdap 03/14/2022 Completed 115 CVX Influenza, split virus, quadrivalent, PF 02/17/2023 Completed 150 CVX Influenza, split virus, quadrivalent, preservative 11/01/2018 Completed 158 C VX COVID-19, mRNA, LNP-S, PF, 1 00 mcg/0.5mL dose or 50 mcg/0.25mL dose 06/01/2020 Completed 207 CVX COVID-19, mRNA, LNP-S, PF, 1 00 mcg/0.5mL dose or 50 mcg/0.25mL dose 06/29/2020 Completed 207 CVX COVID-19, mRNA, LNP-S, PF, 1 00 mcg/0.5mL dose or 50 mcg/0.25mL dose 02/09/2021 Completed 207 CVX Results TROPONIN LEVEL - Collect Peter e/Time: 11/01/2024 22:06 [facility] ID: [id number] [id number] [place] [address], [phone] LOINC: 16803-8 Test Value Unit Reference Range Code Code System Flag TROPONIN < 0.012 ng/mL L=0.000 H=0.033 34296-1 LOINC 4 PLEX RESPIRATORY COVID FLU RSV PCR - Collect Date/Time: 11/01/2024 18:13 [facility] ID: [id number] [address] [place] [address], [phone] LOINC: 19107-1 Test Value Unit Reference Range Code Code System Flag SARS CoV2 PCR NEGATIVE 10594-0 LOINC FLU A PCR NEGATIVE FLU B PCR NEGATIVE RSV PCR NEGATIVE SEND TO [facility]? NO URINALYSIS w/Microscopy/C&S if indicated - Collect Date/Time: 11/01/2024 17:48 [facility] ID: [id number] [address] [place] [address], [phone] LOINC: 12037-6 Test Value Unit Reference Range Code Code System Flag UR SOURCE VOIDED 87349-8 LOINC COLOR YELLOW YELLOW 5778-6 LOINC CLARITY SL CLOUDY CLEAR 63602-2 LOINC SPEC GRAVITY <=1.005 1.000-1.030 5811-5 LOINC PH 6.0 5.0 - 6.5 5803-2 LOINC LEUK EST 1+ NEGATIVE 5799-2 LOINC A NITRATE NEGATIVE NEGATIVE PROTEIN NEGATIVE NEGATIVE 5804-0 LOINC GLUCOSE NEGATIVE NEGATIVE 03777-5 LOINC KETONES NEGATIVE NEGATIVE 15588-7 LOINC UROBILINOGEN 0.2 0.2 - 1.0 5818-0 LOINC BILIRUBIN NEGATIVE NEGATIVE 57252-8 LOINC BLOOD NEGATIVE NEGATIVE 18706-9 LOINC WBC 5-10 0 - 2 95089-6 LOINC A RBC 0-2 0 - 2 80992-0 LOINC SQ EPITHELIAL MODERATE RARE-FEW BACTERIA NONE SEEN NONE SEEN 32107-7 LOINC MUCUS NONE SEEN NONE SEEN 8247-9 LOINC YEAST NOT PRESENT NOT PRESENT 45149-5 LOINC TRICHOMONAS NOT PRESENT NOT PRESENT 24235-4 LOINC SPERMATOZOA NOT PRESENT NOT PRESENT 77942-1 LOINC CASTS NOT PRESENT 75816-5 LOINC CRYSTALS NOT PRESENT 69384-2 LOINC CULTURE? NO 8251-1 LOINC DIAGNOSIS N/A URINE DRUG SCREEN 12 PANEL R APID - Collect Date/Time: 11/01/2024 17:48 [facility] ID: [id number] [place] [address], [phone] LOINC: Test Value Unit Reference Range Code Code System Flag THC NEGATIVE PCP NEGATIVE COCAINE NEGATIVE 62818-6 LOINC METHAMPHETAMINES NEGATIVE OPIATES POSITIVE A AMPHETAMINES NEGATIVE 04170-8 LOINC BENZO POSITIVE 74084-1 LOINC A TCA NEGATIVE METHADONE NEGATIVE BARBITUATES NEGATIVE OXYCODONE NEGATIVE FENTANYL NEGATIVE CBC W/ DIFF - Collect Date/T ellen: 11/01/2024 17:33 [facility] ID: [id number] [address] [place], [place], [phone] LOINC: 94674-2 Test Value Unit Reference Range Code Code System Flag WBC 7.3 10^3uL L=4.0 H=10.5 RBC 4.09 10^6uL L=4.20 H=5.40 L HEMOGLOBIN 11.6 g/dL L=12.0 H=16.0 718-7 LOINC L HEMATOCRIT 36.2 VOL% L=37.0 H=47.0 4544-3 LOINC L MCV 88.5 fL L=81.0 H=99.0 MCH 28.4 pg L=27.0 H=32.0 MCHC 32.0 g/dL L=32.0 H=36.0 PLATELETS 291 10^3uL L=100 H=400 59337-9 LOINC RDW 13.4 % L=11.7 H=15.5 %GRAN 59.8 % L=40.0 H=70.0 82128-7 LOINC %LYMPH 30.1 % L=20.0 H=45.0 736-9 LOINC %MONO 6.7 % L=2.0 H=10.0 57437-1 LOINC %EOS 3.0 % L=0.0 H=6.0 713-8 LOINC %BASO 0.3 % L=0.0 H=3.0 706-2 LOINC #NEUT 4.4 10^3uL L=1.9 H=7.6 10204-0 LOINC #LYMPH 2.2 10^3uL L=0.9 H=4.9 96594-2 LOINC #MONO 0.5 10^3uL L=0.1 H=0.9 89835-7 LOINC #EOS 0.2 10^3uL L=0.0 H=0.6 712-0 LOINC #BASO 0.02 10^3uL L=0.00 H=0.10 31265-4 LOINC #IM GRANS 0.0 10^3uL L=0.0 H=7.0 87966-2 LOINC %IM GRANS 0.1 % L=0.0 H=5.0 26657-0 LOINC %NRB 0.0 L=0.0 H=0.2 46772-2 LOINC #NRB 0.000 L=0.000 H=0.012 01443-1 LOINC MANUAL DIFF NOT INDICATED RBC MORPH NOT INDICATED MAGNESIUM - Collect Date/Adrian e: 11/01/2024 17:33 [facility] ID: [id number] [address] [place] [address], [phone] LOINC: 72537-8 Test Value Unit Reference Range Code Code System Flag MAGNESIUM 1.8 mg/dL L=1.6 H=2.3 14502-3 LOINC CPK - Collect Date/Time: 17:33 [facility] ID: [id number] [address] [place] [address], [phone] LOINC: 2157-6 Test Value Unit Reference Range Code Code System Flag CPK 90 U/L L=30 H=170 7-6 LOINC LACTIC ACID - Collect Date/T ellen: 11/01/2024 17:33 [facility] ID: [id number] [address] [place] [address], [id number] LOINC: 82614-6 Test Value Unit Reference Range Code Code System Flag LACTIC ACID 1.3 mmol/L L=0.7 H=2.6 80909-7 LOINC AMYLASE - Collect Date/Time: 11/01/2024 17:33 [facility] ID: [id number] [address] [place] [address], [phone] LOINC: 1798-8 Test Value Unit Reference Range Code Code System Flag AMYLASE 53 U/L L=30 H=110 1798-8 LOINC LIPASE - Collect Date/Time: 11/01/2024 17:33 [facility] ID: [id number] [address] [place] [address], [phone] LOINC: 3040-3 Test Value Unit Reference Range Code Code System Flag LIPASE 63 U/L L=23 H=300 3040-3 LOINC PROTIME - Collect Date/Time: 11/01/2024 17:33 [facility] ID: [id number] [address] [place] [address], [id number] LOINC: 37058-1 Test Value Unit Reference Range Code Code System Flag PT 9.7 Sec L=9.6 H=11.5 59913-6 LOINC INR 0.9 Sec L=0.9 H=1.1 77704-8 LOINC D DIMER - Collect Date/Time: 11/01/2024 17:33 [facility] ID: [id number] [address] [place] [address], [phone] LOINC: Test Value Unit Reference Range Code Code System Flag DDIMER 0.44 mg/L FEU L=0.00 H=0.50 PRO BNP - Collect Date/Time: 11/01/2024 17:33 [facility] ID: [id number] [address] [place] [address], [id number] LOINC: 22706-3 Test Value Unit Reference Range Code Code System Flag Pro BNP2 30 pg/mL L=0 H=900 31576-5 LOINC COMPREHENSIVE METABOLIC PANE L - Collect Date/Time: 11/01/2024 17:33 [facility] ID: [id number] [address] [place], [place], [phone] LOINC: 44798-7 Test Value Unit Reference Range Code Code System Flag FASTING UNKNOWN BUN 11 mg/dL L=7 H=20 3094-0 LOINC CREATININE 0.60 mg/dL L=0.52 H=1.04 2160-0 LOINC GLUCOSE 125 mg/dL L=74 H=106 2345-7 LOINC H SODIUM 139 mmol/L L=132 H=144 2951-2 LOINC POTASSIUM 3.8 mmol/L L=3.5 H=5.1 2823-3 LOINC CHLORIDE 107 mmol/L L=98 H=107 2075-0 LOINC CO2 26.0 mmol/L L=22.0 H=30.0 2028-9 LOINC ANION GAP 10 L=10 H=20 71980-1 LOINC OSMOLALITY 289 mOs/kG L=280 H=296 18860-2 LOINC BUN/CREAT 18.3 3097-3 LOINC CALCIUM 9.1 mg/dL L=8.3 H=10.5 16335-7 LOINC AST 29 U/L L=15 H=46 1920-8 LOINC ALT 25 U/L L=9 H=72 1742-6 LOINC ALKALINE PHOS 109 U/L L=38 H=126 6768-6 LOINC TOTAL BILI 0.3 mg/dL L=0.2 H=1.3 1975-2 LOINC ALBUMIN 4.0 G/dL L=3.5 H=5.0 1751-7 LOINC TOTAL PROTEIN 6.6 g/L L=6.3 H=8.2 2885-2 LOINC A/G RATIO 1.5 04158-2 LOINC AGE 59 33710-4 LOINC eGFR NON-AFR 109 ml/min eGFR AFR AMER 132 ml/min TROPONIN LEVEL - Collect Peter e/Time: 11/01/2024 17:33 [facility] ID: [id number] [place], [place], [phone] LOINC: 33231-3 Test Value Unit Reference Range Code Code System Flag TROPONIN < 0.012 ng/mL L=0.000 H=0.033 95273-1 LOINC CHEST 1V - Completed: 2024 18:32 LOINC: \TM00\\12PI\\DRAo\\BM09\ \MRHo\ [address] [address] ---------NAME--------- NUMBER SEX AGE ADMIT DISC. XRAY# F/C TYPE EMILIANO LYNN STERLING [id number] F 59 11/01/24 41201 XB7 E.R. DATE OF : 1965 M/R# [id number] #: [id number] ED-31 [facility] LOCATION: TRANSCRIBED: 11/01/24 19:19 CHEST 1V 30404 COMPLETED:11/01/24 18:32 [facility] [address] Chest Pain PHYSICIAN: ORQUIDEA Maya R A D I O L O G Y R E P O R T CHEST RADIOGRAPH Indication: Chest Pain Technique: Single frontal view of the chest was obtained COMPARISON: None FINDINGS: Lines and Tubes: None Lungs: Congestion Pleura: No effusion. No pneumothorax. Cardiomediastinal contours: Unremarkable Bones: Unremarkable IMPRESSION: Increased interstital prominence. This may represent pulmonary vascular congestion and/or viral pneumonia. Clinical correlation advised. O CONTROL CRANE OPERATOR \ITLo\ \UNDo\ \UNDx\ \ITLx\ Reviewed and Electronically Signed by: Scout Mcclellan MD Signed Date: 11/01/24 19:19 CHEST 2V - Completed: 2024 21:39 LOINC: \TM00\\12PI\\DRAo\\BM09\ \MRHo\ [address] [address] ---------NAME--------- NUMBER SEX AGE ADMIT DISC. XRAY# F/C TYPE EMILIANO LYNN STERLING [id number] F 59 11/01/24 66615 XB7 E.R. DATE OF : 1965 M/R# [id number] #: [id number] ED-31 \[facility]\ LOCATION: TRANSCRIBED: 11/01/24 21:40 CHEST 2V 00795 COMPLETED:11/01/24 21:39 MRP [id number] Chest Pain PHYSICIAN: ORQUIDEA Maya R A D I O L O G Y R E P O R T CHEST 2V INDICATION: Chest Pain TECHNIQUE: Two views of the chest COMPARISON: CHEST 1V on DOS: 11/01/24 FINDINGS/IMPRESSION: LUNGS: No pleural effusion, consolidation, or pneumothorax. Peripheral interstitial edema. MEDIASTINUM: Unremarkable BONES: No acute osseous abnormality OTHER: None O CONTROL CRANE OPERATOR \ITLo\ \UNDo\ \UNDx\ \ITLx\ Reviewed and Electronically Signed by: KHRIS WINN Signed Date: SIGNDATE US VENOUS LEFT LE - Complete d: 11/01/2024 19:13 LOINC: 14083-9 \TM00\\12PI\\DRAo\\BM09\ \MRHo\ [address] [address] ---------NAME--------- NUMBER SEX AGE ADMIT DISC. XRAY# F/C TYPE EMILIANO LYNN STERLING [id number] F 59 11/01/24 63665 XB7 E.R. DATE OF : 1965 M/R# [id number] #: [id number] ED-31 \[facility]\ LOCATION: TRANSCRIBED: 11/01/24 19:16 [place] [address] COMPLETED:11/01/24 19:13 MRP [id number] LEG SWELLING;Chest Pain PHYSICIAN: ORQUIDEA Maya R A D I O L O G Y R E P O R T CLINICAL HISTORY: LEG SWELLING;Chest Pain TECHNIQUE: Color and duplex doppler imaging of the left lower extremity veins was performed. Vessel compression if possible was also performed. WID: COMPARISON: None FINDINGS: Left common femoral vein: Normal compressibility and flow. Left femoral vein: Normal compressibility and flow. Left popliteal vein: Normal compressibility and flow. Proximal calf veins are normally compressible. The contralateral right common femoral vein is patent. IMPRESSION: 1. NO SONOGRAPHIC EVIDENCE FOR DEEP VENOUS THROMBOSIS IN THE LEFT LOWER EXTREMITY VEINS. O CONTROL CRANE OPERATOR \ITLo\ \UNDo\ \UNDx\ \ITLx\ Reviewed and Electronically Signed by: Scout Mcclellan MD Signed Date: 11/01/24 19:16 Social History Type Status Start Date End Date Code Code Syst em Smoking History Current every day smoker [id number] SNOMED CT Sex Female Hospital Discharge Instructions Should you have any questions prior to discharge, please contact a member of your healthcare team. If you have left the hospital and have any questions, please contact your primary care physician. Reason For Referral No Data Found Allergies and Adverse Reactions Allergy Substance Reaction Severity Start Date Concern Status Co de Code System CYCLOBENZAPRINE Active 82845 RxNorm PENICILLIN Active Plan of Treatment No Data Found Encounters Encounter Diagnosis Start Date Code Code Sys tem Other chest pain 11/01/2024 SNOMED-CT Personal Care Team Section Performer Name Performer Role Active Date Inactive Rohan Vicente PCP - Primary care physician 2024-01-04 2024-01-04 Imaging Narrative Notes [facility] 11/01/2024 19:21 [facility] [address] [place] [address] ---------NAME--------- NUMBER SEX AGE ADMIT DISC. XRAY# F/C TYPE EMILIANO LYNN STERLING [id number] F 59 11/01/24 06239 XB7 E.R. DATE OF : 1965 M/R# [id number] #: [id number] ED-31 LOCATION: TRANSCRIBED: 11/01/24 19:19 CHEST 1V 32804 COMPLETED:11/01/24 18:32 MRP [id number] Chest Pain PHYSICIAN: ORQUIDEA G RADIOLOGY REPORT CHEST RADIOGRAPH Indication: Chest Pain Technique: Single frontal view of the chest was obtained COMPARISON: None FINDINGS: Lines and Tubes: None Lungs: Congestion Pleura: No effusion. No pneumothorax. Cardiomediastinal contours: Unremarkable Bones: Unremarkable IMPRESSION: Increased interstital prominence. This may represent pulmonary vascular congestion and/or viral pneumonia. Clinical correlation advised. O CONTROL CRANE OPERATOR Reviewed and Electronically Signed by: Scout Mcclellan MD Signed Date: 11/01/24 19:19 [facility] 11/01/2024 21:[address] [address] ---------NAME--------- NUMBER SEX AGE ADMIT DISC. XRAY# F/C TYPE EMILIANO STERLING [id number] F 59 11/01/24 80383 XB7 EAlisaRAlisa DATE OF : 1965 M/R# [id number] #: [id number] ED-31 LOCATION: TRANSCRIBED: 11/01/24 21:40 CHEST 2V 17356 COMPLETED:11/01/24 21:39 MRP [id number] Chest Pain PHYSICIAN: ORQUIDEA Maya RADIOLOGY REPORT CHEST 2V INDICATION: Chest Pain TECHNIQUE: Two views of the chest COMPARISON: CHEST 1V on DOS: 11/01/24 FINDINGS/IMPRESSION: LUNGS: No pleural effusion, consolidation, or pneumothorax. Peripheral interstitial edema. 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 XRAY# F/C TYPE EMILIANO STERLING [id number] F 59 11/01/24 04572 XB7 E.R. DATE OF : 1965 M/R# [id number] #: [id number] ED-31 LOCATION: TRANSCRIBED: 11/01/24 19:16 [place] [address] COMPLETED:11/01/24 19:13 MRP [id number] LEG SWELLING;Chest Pain PHYSICIAN: ORQUIDEA G RADIOLOGY REPORT CLINICAL HISTORY: LEG SWELLING;Chest Pain TECHNIQUE: Color and duplex doppler imaging of the left lower extremity veins was performed. Vessel compression if possible was also performed. WID: COMPARISON: None FINDINGS: Left common femoral vein: Normal compressibility and flow. Left femoral vein: Normal compressibility and flow. Left popliteal vein: Normal compressibility and flow. Proximal calf veins are normally compressible. The contralateral right common femoral vein is patent. IMPRESSION: 1. NO SONOGRAPHIC EVIDENCE FOR DEEP VENOUS THROMBOSIS IN THE LEFT LOWER EXTREMITY VEINS. 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
--- NOTE | 2024-12-30 07:00 | ED.CHESTPAIN ---
HPI - Chest Pain General Chief Complaint: Chest Pain Stated Complaint: chest pain Time Seen by Provider: 12/30/24 06:59 Source: patient and EMS Mode of arrival: EMS Limitations: no limitations History of Present Illness HPI narrative: Patient is a 59-year-old female with chest pain left-sided since last night. She said she is having lot of stress around holiday time with family. She has CHF. She has had a non-STEMI in the past and TIA. She said she has a abnormal heart structure and a MARY was just done with pending results. No other cardiac conditions or procedures. Patient also has a headache for the past week. MD complaint: chest pain Pertinent past history: coronary artery disease and prior CT Onset (ago): day(s) (Two) Timing of current episode: episodic and stable Prior episodes: Yes Onset: during rest and awoke with symptoms Pain location: substernal and left chest Pain radiation: none Severity: mild Pain scale (0-10): 3 Quality: heaviness Relieving factors: nothing Exacerbating factors: stress Context: other (Patient called EMS for chest pain that started last night and still present this morning with some CHF and CAD and CVD) Associated symptoms: sense of impending doom Treatment prior to arrival: none Risk Factors Coronary artery disease risk factors: diabetes, smoking history, hyperlipidemia and hypertension Thoracic aortic dissection risk factors: none Pulmonary embolism risk factors: morbid obesity Related Data On Oral Contraceptives: No Home Medications ?Medication ?Instructions ?Recorded ?Confirmed ?Last Taken ?Type omeprazole magnesium 20 mg 20 mg PO DAILY 04/13/19 11/24/24 11/24/24 History tablet,delayed release (Prilosec OTC) atorvastatin 40 mg tablet 60 mg PO DAILY 06/01/21 11/24/24 11/24/24 History fluoxetine 40 mg capsule (Prozac) 20 mg PO BID 06/01/21 11/24/24 11/24/24 History multivitamin with minerals 1 tablet PO DAILY 12/01/21 11/24/24 11/24/24 History lisinopril 40 mg tablet 40 mg PO DAILY 10/31/22 11/24/24 11/24/24 History metformin 500 mg tablet,extended 500 mg PO BID 09/28/23 11/24/24 11/24/24 History release 24 hr topiramate 50 mg tablet 50 mg PO DAILY 09/28/23 11/24/2411/24/25 History alprazolam 1 mg tablet 1 mg PO BID PRN Anxiety 07/29/24 11/24/24 07/29/24 History atorvastatin 20 mg tablet 20 mg PO DAILY 08/12/24 11/24/24 11/24/24 History olanzapine 7.5 mg tablet 7.5 mg PO HS 11/24/24 11/24/24 11/23/24 History Allergies Allergy/AdvReac Type Severity Reaction Status Date / Time No Known Allergies Allergy Unknown Verified 12/30/24 07:20 Review of Systems Review of Systems: All systems reviewed & are unremarkable except as noted in HPI and below Constitutional: Constitutional: Reports no additional constitutional complaints Eyes: Eyes: Reports no additional eye complaints ENT: Reports system reviewed and no additional complaints, except as documented Cardiovascular: Cardiovascular: Reports no additional cardiovascular complaints Respiratory: Respiratory: Reports no additional respiratory complaints Gastrointestinal: Gastrointestinal: Reports no additional gastrointestinal complaints Genitourinary: Genitourinary: Reports no additional female genitourinary complaints Musculoskeletal: Musculoskeletal: Reports no additional musculoskeletal complaints Integumentary/Breasts: Skin/Breast: Reports system reviewed and no additional complaints, except as docu Neurologic: Reports system reviewed and no additional complaints, except as documented Psychiatric: Psychiatric: Reports no additional psychiatric complaints Endocrine: Endocrine: Reports no additional endocrine complaints Hematologic/Lymphatic: Hematologic/Lymphatic: Reports no additional hematologic/lymphatic complaints Allergic/Immunologic: Allergic/Immunologic: Reports no additional allergic/immunologic complaints PMFSH Past Medical History Medical History Pulmonary embolism After cholecystectomy in 1991 Migraines Bipolar disorder Morbid obesity with BMI of 40.0-44.9, adult Necrotizing pneumonia Two thousand twenty-two Insect bite Hx MRSA infection Congestive heart failure Hypertension COPD (chronic obstructive pulmonary disease) Asthma Anxiety Depression Surgical History Surgical History History of hysterectomy for benign disease (2007) History of left oophorectomy (~2007) History of incision and drainage Several areas to left forearm for MRSA 2002 History of cholecystectomy (~1991) History of tubal ligation Family History Family History Father Valvular heart disease Mother , Mother at age 60. Diabetes mellitus Smoker Sibling Rheumatoid arthritis Has RA in her hands, sees real estate attorney. Social History Social History Social History: The patient is but lives with her boyfriend, of 26 years, and her daughter and granddaughter. She has a daughter and a son. Her oldest son She used to binge drink about once a month until she was unconscious but quit drinking alcohol around age 41. She used to smoke crack cocaine from about age 26 to age 41. She reports she started smoking in order to deal with her withdrawal from the other substances and she proceeded to smoke 1.5 packs of cigarettes per day for about 8 years but quit smoking at age 51. She works at [employer] in the [employer]. Code status: Full code Surrogate decision maker: Her son Smoking packs per day: 1.5 Smoking cigarettes per day: 30.0 Years smoked: 8 Smoking pack-years: 12.00 Smoking status: Former smoker Tobacco type: cigarettes Second hand tobacco smoke exposure: Yes Additional smoking assessment comments: Began smoking pot as a kid and quit 2018. Began smoking cigarettes after Alcohol intake: never Substance use: never Substance use type: does not use Do You Feel Safe in your Home?: Yes Lack of Transportation: No Lack of Food: Never True Current Housing: I Have Housing Concerned About Future Housing: No Difficulty Paying Gas/Electric Bills: No Difficulty Paying for Meds: No Currently Unemployed: No Education: High School Diploma/GED Difficulty w/ Childcare or Family Care: No Spiritual care concerns: No Exam Const: General: healthy appearing Nutritional Appearance: well nourished Orientation/consciousness: patient oriented x3 Limitations: no limitations HENMT: Head: normal to inspection Ears: external ears normal Face/Nose/Sinus: Normal external nose present Eyes: Conjunctivae: conjunctivae normal Pupils: Equal, round and reactive pupils present EOM: EOMs intact bilaterally Neck: Neck: normal visual inspection Chest: Chest palpation & inspection: normal inspection of the chest Resp: Effort & Inspection: normal respiratory effort and not labored Auscultation: clear to auscultation bilaterally and no crackles Cardio: Rate: regular rate Rhythm: regular rhythm Heart sounds: no murmurs GI: Inspection: non-distended GI Palp: Yes Soft to palpation and No Tenderness to palpation present (GI) Auscultation: normal bowel sounds : General: Yes bladder normal to palpation Back/Spine/Pelvis: Back: no CVA tenderness Skin: General skin exam: normal color Rashes: no rashes Wounds: no wounds Neuro: General: patient oriented x3, moves all extremities, no meningeal signs, no focal motor deficits and CN's II-XI intact bilaterally Cranial nerves: Yes Nystagmus not present Speech: normal speech Gait exam (Neuro): Normal gait present Other: Fast exam negative, NIH score is 0, GCS is 15 Extrem: General: normal to inspection Psych: Mental Status: mental status grossly normal Affect: normal affect and Anxious affect present Attitude: cooperative Course Vital Signs Vital signs: Vital Signs Temperature 36.7 C 12/30/24 06:55 Pulse Rate 119 H 12/30/24 06:55 Respiratory Rate 22 H 12/30/24 06:55 Blood Pressure 116/79 12/30/24 06:55 Pulse Oximetry 93 12/30/24 06:55 Oxygen Delivery Nasal Cannula 12/30/24 06:55 Oxygen Flow Rate 3 12/30/24 06:55 Temperature 36.7 C 12/30/24 06:55 Pulse Rate 123 H 12/30/24 08:01 Respiratory Rate 24 H 12/30/24 08:01 Blood Pressure 108/72 12/30/24 08:00 Pulse Oximetry 94 12/30/24 08:10 Oxygen Delivery Nasal Cannula 12/30/24 08:10 Oxygen Flow Rate 2 12/30/24 08:10 MDM - Chest Pain MDM Narrative Medical decision making narrative: Patient is a 59-year-old female with chest pain for the past day since last night at rest and here for workup. Cardiopulmonary workup at this time. We will admit patient to this facility for pneumonia in 2 lobes for IV antibiotics. She also requires oxygen. Lab Data Attestation: I reviewed the patient's lab results. 12/30/24 07:27 12/30/24 07:27 Labs: Lab Results 12/30/24 12/30/24 Range/Units 07:05 07:27 WBC 11.0 H (4.8-10.8) K/mm3 RBC 4.31 (4.20-5.40) M/mm3 Hgb 12.2 (12.0-15.0) g/dL Hct 38.0 (35.0-49.0) % MCV 88.2 (78.0-102.0) fL MCH 28.3 (27.0-31.0) pg MCHC 32.1 (32-36) g/dL RDW 13.6 (11.6-14.4) % Plt Count 288 (150-420) K/mm3 MPV 9.3 (9.2-11.8) fl Immature Gran % (Auto) 0.5 H (0.0-0.0) % Neut % (Auto) 88.5 H (50.0-70.0) % Lymph % (Auto) 6.9 L (18.0-42.0) % Smith % (Auto) 3.7 (2.0-11.0) % Eos % (Auto) 0.3 L (1.0-6.0) % Baso % (Auto) 0.1 (0.0-1.0) % Lymph # (Auto) 0.76 L (1.10-4.50) K/mm3 Smith # (Auto) 0.41 (0.10-0.90) K/mm3 Eos # (Auto) 0.03 (0.02-0.50) K/mm3 Baso # (Auto) 0.01 (0.00-0.10) K/mm3 Abs Immat Gran (auto) 0.06 H (0.00-0.00) K/mm3 Absolute Neuts (auto) 9.72 H (1.70-7.20) K/mm3 Absolute Nucleated RBC 0.00 (0.00-0.00) K/mm3 Nucleated RBC % 0.0 (0-0.0) % D-Dimer 1.73 H (0.19-0.50) mg/L Sodium 140 (137-145) mmol/L Potassium 3.7 (3.4-5.0) mmol/L Chloride 104 (98-107) mmol/L Carbon Dioxide 25 (22-30) mmol/L Anion Gap 11 (4-12) mmol/L BUN 10 (7-17) mg/dL Creatinine 0.56 L (0.7-1.0) mg/dL Estim Creat Clear Calc 125 ml/min Estimated GFR > 60 (59 - ) Glucose 104 (65-110) mg/dL POC Capillary Glucose 108 H (65-105) mg/dl Calculated Osmolality 289 (285-295) mOsm/kg Calcium 8.7 (8.4-10.2) mg/dL Total Bilirubin 0.6 (0.2-1.3) mg/dL AST 29 (14-36) U/L ALT 29 (6-35) U/L Alkaline Phosphatase 131 H (38-126) U/L Troponin I < 0.012 (0.000-0.034) ng/mL NT-Pro-B Natriuret Pep 73 (19.9-100) pg/mL Total Protein 6.6 (6.3-8.2) g/dL Albumin 3.8 (3.5-5.1) g/dL Lipase 44 (23-300) U/L Imaging Data Attestation: I personally reviewed and interpreted this imaging study as follows: Radiologist's impression: Chest x-ray shows IMPRESSION: 1. Persistent interstitial pulmonary edema and/or pneumonitis. 2. Developing airspace disease right lower lobe. CTA of the chest shows IMPRESSION: 1. Patchy right middle and lower lobe airspace disease, compatible with pneumonia. 2: No large central pulmonary embolism. Study limited due to motion. ECG Data EKG #1: Attestation: I personally reviewed and interpreted this ECG as follows: ECG completion date: 12/30/24 ECG completion time: 07:35 EKG Interpretation: tachycardia, no ectopy, no ST changes, normal QRS, normal QT and NL axis Critical Care Time Critical Care Time Critical Care Time: Yes Total Critical Care Time: 35 Discharge Plan Discharge Clinical Impression: Hypoxia Pneumonia involving right lung Qualifiers: Pneumonia type: due to unspecified organism Lung location: unspecified part of lung Qualified Code(s): J18.9 - Pneumonia, unspecified organism Patient Disposition: Acute Care Hospital [facility] Condition: Stable Patient Language: Nigerien Prescriptions: No Action omeprazole magnesium [Prilosec OTC] 20 mg Tablet,Delayed Release (Dr/Ec) 20 mg PO DAILY lisinopril 40 mg tablet 40 mg PO DAILY fluoxetine [Prozac] 40 mg capsule 20 mg PO BID atorvastatin 40 mg tablet 60 mg PO DAILY metformin 500 mg tablet extended release 24 hr 500 mg PO BID topiramate 50 mg tablet 50 mg PO DAILY olanzapine 7.5 mg tablet 7.5 mg PO HS atorvastatin 20 mg tablet 20 mg PO DAILY multivitamin with minerals Tablet 1 tablet PO DAILY albuterol sulfate 90 mcg/actuation HFA aerosol inhaler 2 puff INHALATION Q4H PRN (Reason: Wheezing) Qty: 1 0RF alprazolam 1 mg tablet 1 mg PO BID PRN (Reason: Anxiety) aspirin 81 mg Tablet,Delayed Release (Dr/Ec) 81 mg PO QAM Qty: 30 0RF lidocaine 5 % adhesive patch,medicated 1 patch topical DAILY PRN (Reason: pain) Qty: 15 0RF Rx Instructions: leave on most painful area for up to 12 hrs Follow-up/Referrals: UNKNOWN,DOCTOR [Non-Staff] Time of Disposition: 09:06
[2024-12-30] MEDS: ACETAMINOPHEN 500 MG TABLET 1000 MG PO (07:29)
[2024-12-30 07:33] LABS: Hematocrit 38.0 % (35.0-49.0); Hemoglobin 12.2 g/dL (12.0-15.0); Immature Granulocyte Percent A 0.5 % (0.0-0.0); Lymphocytes Absolute Auto 0.76 K/mm3 (1.10-4.50); Mean Corpuscular HGB Conc 32.1 g/dL (32-36); Mean Corpuscular Hemoglobin 28.3 pg (27.0-31.0); Mean Corpuscular Volume 88.2 fL (78.0-102.0); Nucleated Red Blood Cells Absolute Auto 0.00 K/mm3 (0.00-0.00); Nucleated Red Blood Cells Perc 0.0 % (0-0.0); Platelet Count Result 288 K/mm3 (150-420); Red Blood Count 4.31 M/mm3 (4.20-5.40); White Blood Count 11.0 K/mm3 (4.8-10.8)
[2024-12-30 07:46] LABS: Alanine Aminotransferase 29 U/L (6-35); Albumin Level 3.8 g/dL (3.5-5.1); Alkaline Phosphatase 131 U/L (38-126); Anion Gap 11 mmol/L (4-12); Aspartate Amino Transferase 29 U/L (14-36); Bilirubin,Total 0.6 mg/dL (0.2-1.3); Blood Urea Nitrogen 10 mg/dL (7-17); Calcium 8.7 mg/dL (8.4-10.2); Carbon Dioxide 25 mmol/L (22-30); Chloride 104 mmol/L (98-107); Estimated CRCL calculation 125 ml/min; Estimated Glomerular Filt Rate > 60; Glucose 104 mg/dL (65-110); Osmolality Calculated 289 mOsm/kg (285-295); Potassium 3.7 mmol/L (3.4-5.0); Sodium 140 mmol/L (137-145); Total Protein 6.6 g/dL (6.3-8.2)
--- OUTSIDE RECORDS SUMMARY | 2024-12-30 07:52 | XMS_ITS | Encounter Summary ---
Author Organization [facility] Address [facility] [place] [address] Care Team Providers Care Outreach Analyst Name Role Phone Rhianna Shepard Primary Care Provider [phone] Encounter Details Date Type Department Care Team (Late st Contact Info) Description 07/13/2018 Abstract [facility] CONVERSION [address] [place] [address] , Generic Conversion, Social History Tobacco Use [...] on filedocumented in this encounter Care Teams Outreach Analyst Relationship Specialty Start Date End Date Rhianna Shepard PA [address] [place] [address] PCP - General PHYSICIAN WATER RESOURCE SPECIALIST 11/18/19 documented as of this encounter
--- OUTSIDE RECORDS SUMMARY | 2024-12-30 07:52 | XMS_ITS | Clinical Summary ---
Author Organization [facility] Address Replaced by [facility] [place] [address] Care Team Providers Care Edge Drummer Name Role Phone Rhianna Shepard Primary Care Provider [phone] Allergies Active Allergy Reactions Criticality Noted Date [...] Most Recently Relevant to Health Maintenance [place] [address] Care Teams Edge Drummer Relationship Specialty Start Date End Date Rhianna Shepard PA [address] [place] [address] PCP - General PHYSICIAN HEAD MIXER 11/18/19
--- OUTSIDE RECORDS SUMMARY | 2024-12-30 07:52 | XMS_ITS | Clinical Summary ---
Author Organization [facility] Address [address] [facility] [place] [address] Phone Care Team Providers Care Trim Machine Operator Name Role Phone Rhianna Shepard EVA Primary [...] Insurance MEDICAID [employer] Care Teams Trim Machine Operator Relationship Specialty Start Date End Date Rhianna Shepard PAC [address] [place] [address] PCP - General Advanced Practice Nurse 07/02/23
--- OUTSIDE RECORDS SUMMARY | 2024-12-30 07:52 | XMS_ITS | Clinical Summary ---
Author Organization [facility] [employer] Address [address] [place] [address] Care Team Providers Care Guest Service Agent Name Role Phone Herb Tate MAGNETIC PROSPECTOR-GASSER MACHINE OPERATOR Primary Care Provider [phone] Source Comments [facility] [employer]non-[facility] Affiliates and Associated Physician Practices is amultiple site organization consisting of ambulatory clinics and hospital sitesin [place], [place], [place] and [place]. This disclosure is being madepursuant to the Care Everywhere program and may not contain all information available regarding this patient. Last updated 17.[facility] [employer] Allergies Active Allergy Reactions Criticality Noted Date [...] as needed for pain 5 Active Klayesta 006875 UNIT/GM powder APPLY 1 APPLICATION TOPICALLY TWICE DAILY FOR 7 DAYS Active nystatin (Mycostatin) 863048 UNIT/GM cream APPLY TOPICALLY TO THE AFFECTED [...] 11/15/2024 Weakness 11/14/2024 Cerebrovascular accident (CVA), unspecified [facility] 11/14/2024 Encounters Date Type Department Care Team Description 12/19/2024 6:35 AM PLATER HELPER - 12/19/2024 11:59 PM PLATER HELPER Hospital Encounter [facility] - Cardiac Sales Account Specialist [address] [place] [address] Sussy Kaur MD Discharge Disposition: Home or Self Care 12/19/2024 Travel 12/08/2024 Transcribe Orders [facility] - Centralized Scheduling [address] [place] [id number] Herb Tate, MAGNETIC PROSPECTOR-GASSER MACHINE OPERATOR Transient neurological symptoms 11/28/2024 10:00 AM CDT Office Visit [facility] - Cardiology [address], [facility] [address] [place] [phone] Sussy Kaur MD Cerebrovascular accident (CVA), unspecified mechanism (HCC) (Primary Dx) 11/28/2024 Travel 11/25/2024 Travel 11/14/2024 7:37 PM CDT - 11/16/2024 5:57 PM CDT Hospital Encounter [facility] 3[address] ICU [address] [place] [address] Dustin Singh MD Edgell, Randall C, MD [...] and heating? Not hard at all 11/15/2024 [facility] - Occupational [...] any time in the past 12 m [facility], were you homeless or living in a halfway (including now)? No 11/15/2024 Comments No Sex and Gender Information Value Date Recorded Sex Assigned at Not on file Legal Sex Female 5:58 PM PLATER HELPER Gender Identity Not on file Sexual Orientation Not on file Last Filed Vital Signs Vital Sign Reading Time Taken Comments Blood Pressure 109/59 12/19/2024 10:45 AM PLATER HELPER Pulse 74 12/19/2024 10:45 AM PLATER HELPER Temperature 36.4 C (97.6 F) 12/19/2024 10:12 AM PLATER HELPER Respiratory Rate 13 12/19/2024 10:45 AM PLATER HELPER Oxygen Saturation 95% 12/19/2024 10:45 AM PLATER HELPER Inhaled Oxygen Concentration - - Weight 124.7 kg (275 lb) 12/19/2024 7:40 AM PLATER HELPER Height 167.6 cm (5' 6) 12/19/2024 7:40 AM PLATER HELPER Body Mass Index 44.39 12/19/2024 7:40 AM PLATER HELPER Plan of Treatment Upcoming Encounters Date Type Department Care Team (Late st Contact Info) Description 12/31/2024 4:40 PM PLATER HELPER Video Visit [facility] - Cardiology [address] [phone] Sussy Kaur MD [facility] [address] [address] 01/05/2025 3:00 PM PLATER HELPER Office Visit [facility] - Neurology [address] [facility] [place] [phone] Miesha Adamson PA-C [address] [facility] [address] [place] [phone] 03/06/2025 9:20 AM PLATER HELPER Office Visit [facility] - Cardiology [address] [phone] Sussy Kaur MD [address] [address] Health Maintenance Due Date Last Done Comments [...] MARY COMPLETE Routine 12/19/2024 10: 06 AM PLATER HELPER Cerebrovascular accident (CVA), unspecified mechanism (HCC) GLUCOSE - POINT OF CARE Routine 12/19/2024 8:01 AM PLATER HELPER CBC W/O DIFFERENTIAL Routine 12/19/2024 7:55 AM PLATER HELPER Cerebrovascular accident (CVA), unspecified mechanism (HCC) BASIC METABOLIC PANEL (CALCIUM TOTAL) Routine 12/19/2024 7:55 AM PLATER HELPER Cerebrovascular accident (CVA), unspecified mechanism (HCC) GLUCOSE [...] * ECHO MARY COMPLETE (12/19/2024 10:06 AM PLATER HELPER) TR pk ja 244 cm/s [facility] PACS Anatomical Region Laterality Modality Ultrasound 12/19/2024 9:09 AM PLATER HELPER Narrative 12/25/2024 11:33 AM PLATER HELPER Summary * Left ventricular systolic function is [...] 9:09 AM Patient Status: O/P Study Site: [facility] Primary Location: [facility] EStudy Info Exam Type: ECHO MARY COMPLETE Indications I63.9 - Cerebrovascular accident (CVA), unspecified mechanism (HCC) * A complete transesophageal echo was performed using 2D, color Doppler, and spectral Doppler. Staff Referring Physician: Sussy Kaur Ordering Provider: Sussy Kaur Attending Physician: Sussy Kaur Fellow: Breonna Perez Forestry Scientist: Fior Franz Performing Physician: Edward Mcguire Complications [...] in satisfactory condition. Probe passed by the breaker layer without difficulty. Left Ventricle The left ventricle [...] 9:09 AM Patient Status: O/P Study Site: [facility] Primary Location: [facility] EStudy Info Exam Type: ECHO MARY COMPLETE Indications I63.9 - Cerebrovascular accident (CVA), unspecified mechanism (HCC) * A complete transesophageal echo was performed using 2D, color Doppler,and spectral Doppler. Staff Referring Physician: Sussy Kaur Ordering Provider: Sussy Kaur Attending Physician: Sussy Kaur Fellow: Breonna Perez Forestry Scientist: Fior Franz Performing Physician: Edward Mcguire Complications [...] Fellow Breonna Perez on 12/19/2024 11:04 AM us Sussy Kaur MD ECHO HOLLEY Final Resul t * (ABNORMAL) GLUCOSE - POINT OF CARE (12/19/2024 8:01 AM PLATER HELPER) Only the most recent of7 resultswithin the time period is included. Glucose WB/POC 102(H) 70 - 99 mg/dL 12/19/2024 8:06 AM [facility] Specimen Type Venous 12/19/2024 8:06 AM [facility] Blood BLOOD SPECIMEN / Unknown 12/19/2024 8:01 AM PLATER HELPER 12/19/2024 8:06 AM PLATER HELPER us Sussy Kaur MD LAB - POINT OF CARE ORDERAB LES Final Result [facility] [address] [place] [address], [facility] [phone] * CBC W/O DIFFERENTIAL (12/19/2024 7:55 AM PLATER HELPER) Only the most recent of3 resultswithin the time period is included. WBC 7.5 4.0 - 10.7 x10E9/L 12/19/2024 8:13 AM [facility] RBC Count 4.44 3.90 - 5.20 x10E12/L 12/19/2024 8:13 AM [facility] Hemoglobin 12.6 11.9 - 15.8 g/dL 12/19/2024 8:13 AM [facility] Hematocrit 38.3 34.8 - 46.1 % 12/19/2024 8:13 AM [facility] MCV 86.3 80.0 - 98.0 fL 12/19/2024 8:13 AM [facility] MCH 28.4 26.7 - 33.6 pg 12/19/2024 8:13 AM [facility] MCHC 32.9 31.7 - 36.3 g/dL 12/19/2024 8:13 AM [facility] RDW-CV 13.7 11.3 - 14.8 % 12/19/2024 8:13 AM [facility] Platelet Count 320 150 - 420 x10E9/L 12/19/2024 8:13 AM [facility] MPV 9.6 7.8 - 11.4 fL 12/19/2024 8:13 AM [facility] Blood BLOOD SPECIMEN / Unknown Venipuncture / Unknown 12/19/2024 7:55 AM PLATER HELPER 12/19/2024 8:10 AM PLATER HELPER us Sussy Kaur MD LAB - HEMATOLOGY ORDERABLES Final Result [facility] [address] [place] [address], [facility] [phone] * (ABNORMAL) BASIC METABOLIC PANEL (CALCIUM TOTAL) (12/19/2024 7:55 AM [facility]) Only the most recent of3 resultswithin the time period is included. BUN 13 7 - 26 mg/dL 12/19/2024 8:43 AM [facility] Creatinine 0.50(L) 0.56 - 0.96 mg/dL 12/19/2024 8:43 AM [facility] Sodium 140 136 - 145 mmol/L 12/19/2024 8:43 AM [facility] Potassium 4.2 3.5 - 4.5 mmol/L 12/19/2024 8:43 AM [facility] Chloride 107 98 - 107 mmol/L 12/19/2024 8:43 AM [facility] CO2 25 22 - 29 mmol/L 12/19/2024 8:43 AM [facility] Glucose 94 70 - 99 mg/dL 12/19/2024 8:43 AM [facility] Calcium 9.2 8.4 - 10.2 mg/dL 12/19/2024 8:43 AM [facility] Anion Gap 8 6 - 16 12/19/2024 8:43 AM [facility] BUN/Creatinine Ratio 26(H) 7 - 23 12/19/2024 8:43 AM [facility] Osmolality Calculated 290 275 - 295 mOsm/kg 12/19/2024 8:43 AM [facility] eGFR by CKD-EPI >90 >=90 mL/min/1.7 3 m2 12/19/2024 8:43 AM [facility] Comment:Estimated Glomerular Filtration Rate (eGFR) calculated using the CKD-EPI Creatinine Equation (2020), per the National Kidney Foundation and [place] Society of Nephrology recommendations. Blood BLOOD SPECIMEN / Unknown Venipuncture / Unknown 12/19/2024 7:55 AM PLATER HELPER 12/19/2024 8:10 AM PLATER HELPER us Sussy Kaur MD LAB - CHEMISTRY ORDERABLES Final Result Performing Organization Address City/[facility]/ZIP Co de Phone Number [address] [address], [place] [phone] * HEMOGLOBIN A1C (11/16/2024 4:45 AM CDT) Only the most recent of2 resultswithin the time period is included. Hemoglobin A1c 5.6 <=5.6 % 11/16/2024 8:51 AM CDT [facility] Estimated Average Glucose 114 mg/dL 11/16/2024 8:51 AM CDT [facility] Comment: HbA1c Interpretation: Normal : < 5.7% Pre-diabetes: 5.7-6.4% Diabetes: Equal to or greater than 6.5% Test results diagnostic of diabetes should be repeated for confirmation. Treatment target values recommended by ADA and other clinical organizations should be used to evaluate metabolic control in patients. Reference: [place] Diabetes Association, Standards of Care in Diabetes [...] LAB - CHEMISTRY ORDERABLE S Final Result [address] [address], [place] [phone] * CT HEAD NON CONTRAST (11/15/2024 5:08 PM CDT) Anatomical Region Laterality Modality Head Computed Tomogra phy 11/15/2024 7:27 PM CDT Impressions 11/15/2024 8:38 PM CDT IMPRESSION: 1.No acute intracranial hemorrhage, midline shift, or significant mass effect. Report was dictated by Jamison Camp MD, ([facility] resident) 11/15/2024 7:27 PM > Dictated by Jamison Camp MD 11/15/2024 7:27 PM > Dictated by Crutcher Helper IAna Laura MD have personally reviewed and interpreted this examination/study. > Interpreting Provider: Ana Laura Mahan MD on 11/15/2024 8:38 PM Narrative 11/15/2024 8:38 PM CDT PROCEDURE: CT HEAD WO CONTRAST, DATE/TIME OF EXAM: 11/15/2024 5:09 PM, LOCATION [facility] INDICATION: I63.9: Cerebrovascular accident (CVA), unspecified [...] DATE/TIME OF EXAM: 11/15/2024 5:09 PM, LOCATION [facility] INDICATION: I63.9: Cerebrovascular accident (CVA), unspecified [...] MD 11/15/2024 7:27 PM > Dictated by Crutcher Helper IAna Laura MD have personally reviewed and [...] I PACS LVIDs 2.831 cm [facility] I PACS LVOT diam 2.27 cm [facility] I PACS LVPWd 1.185 cm [facility] I PACS LV biplane EF 62.413 % [facility] FUJI PACS LV A2C EF 58.211 % [facility] I PACS LV A4C EF 66.353 % [facility] I PACS LV EDV A2C 77.806 ml [facility] CV FU JI PACS LV EDV A4C 81.88 ml [facility] CV FU JI PACS LV ESV A2C 32.514 ml [facility] CV FU JI PACS LV ESV A4C 27.55 ml [facility] CV FU JI PACS LVOT pk grad 3.637 mmHg [facility] LVOT pk ja 95.356 cm/s [facility] CV F UJI PACS LVOT VTI 19.431 cm [facility] I PACS RV-dow basal diam 2.745 cm [facility] RVIDd 3.357 cm [facility] I PACS RVOT diam Doppler 1.999 cm SS M [facility] RVOT pk ja 87.224 cm/s [facility] CV F UJI PACS RVOT VTI 16.789 cm [facility] I PACS LA size 4.129 cm [facility] I PACS LA vol BP 46.15 ml [facility] I PACS RA area 10.25 cm [facility] P[facility] AV area pk ja 2.95 cm [facility] AV area cont VTI 3.027 cm [facility] AV pk grad 6.844 mmHg [facility] CV FU JI PACS AV mn grad 3.358 mmHg [facility] CV FU JI PACS AV pk ja 130.805 cm/s [facility] I PACS AV VTI 25.982 cm [facility] I PACS MV A pk ja 73.419 cm/s [facility] CV F UJI PACS MV E pk ja 83.948 cm/s [facility] CV F UJI PACS MV E' lateral ja 5.922 cm/s SS M [facility] P[facility] MV mn grad 0.801 mmHg [facility] [...] 10:02 AM Patient Status: I/P Study Site: [facility] Primary Location: [facility] EStudy Info Technical Quality: Technically Difficult [...] Provider: Dustin Singh Attending Physician: Dustin Singh Forestry Scientist: Candelario Enriquez Left Ventricle The left ventricle [...] 10:02 AM Patient Status: I/P Study Site: [facility] Primary Location: [facility] Info Technical Quality: Technically Difficult Exam Type: [...] Provider: Dustin Singh Attending Physician: Dustin Singh Forestry Scientist: Candelario Enriquez Left Ventricle The left ventricle [...] 11/15/2024 12:16 PM Dustin Singh MD ECHO CUPTX Final Result * MRI Brain Wo Contrast [...] <3 <=14 ng/L 11/15/2024 12:07 AM T [facility] Delta Troponin I HS 11/15/2024 12:07 AM T [facility] Comment:Delta value intentio sandor not calculated. Baseline to 1 hour specimen collection interval exceeded. Blood BLOOD SPECIMEN / Unknown Venipuncture / Unknown 11/14/2024 11:10 PM CDT 11/14/2024 11:33 PM CDT us Dustin Singh MD LAB - CHEMISTRY ORDERABLES Final Result [address] [address], [facility] [phone] * LIPID PROFILE (11/14/2024 11:10 PM CDT) Cholesterol Total 138 <200 mg/dL 11/15/2024 12:02 AM [facility] HDL 48 >40 mg/dL 11/15/2024 12:02 AM [facility] Comment: ATP III Classification of HDL Cholesterol: <40 mg/dL: Considered a major risk factor. >60 mg/dL: Considered a negative risk factor. LDL Calculated 72 <100 mg/dL 11/15/2024 12:02 AM [facility] Comment: ATP III Classification of LDL Cholesterol: <100 mg/dL: Optimal 100 - 129 mg/dL: Near Optimal/Above Optimal 130 - 159 mg/dL: Borderline High 160 - 189 mg/dL: High >190 mg/dL: Very High LDL is calculated using the Friedewald equation. Triglycerides 88 <150 mg/dL 11/15/2024 12:02 AM CDT [facility] Comment: ATP III Classification of Triglycerides: <150 mg/dL: Normal 150 - 199 mg/dL: Borderline High 200 - 400 mg/dL: High >500 mg/dL: Very High Blood BLOOD SPECIMEN / Unknown Venipuncture / Unknown 11/14/2024 11:10 PM CDT 11/14/2024 11:33 PM CDT Dustin Singh MD LAB - CHEMISTRY ORDERABLES Final Result [address] [address], [place] [phone] * TROPONIN-I HIGH SENSITIVE BASELINE + 1HR (11/14/2024 9:27 PM CDT) Troponin I High Sensitive <3 <=14 ng/L 11/14/2024 10:44 PM CDT [facility] Blood BLOOD SPECIMEN / Unknown Venipuncture / Unknown 11/14/2024 9:27 PM CDT 11/14/2024 10:04 PM CDT Dustin Singh MD LAB - CHEMISTRY ORDERABLES Final Result Performing Organization Address [facility]/ZIP Co de Phone Number [address] [address], [place] [phone] * XR CHEST 1VW PORTABLE (11/14/2024 8:37 [...] TROPONIN-I HIGH SENSITIVE (11/14/2024 8:14 PM CDT) [facility] Troponin I High Sensitive <3 <=14 ng/L 11/14/2024 8:56 PM CDT [facility] Blood BLOOD SPECIMEN / Unknown Venipuncture / Unknown 11/14/2024 8:14 PM CDT 11/14/2024 8:20 PM CDT Ayden Alba MD LAB - CHEMISTRY ORDERABLES F inal Result [facility] [address] [place] [address], [place] [phone] * PTT (11/14/2024 8:14 PM CDT) [facility] APTT 29.6 23.0 - 38.4 Seconds 11/14/2024 8:44 PM CDT [facility] Comment:Suggested therapeuti c range for full dose I.V. unfractionated heparin therapy for venous thromboembolism is 71 to 109 seconds. Blood BLOOD SPECIMEN / Unknown Venipuncture / Unknown 11/14/2024 8:14 PM CDT 11/14/2024 8:20 PM CDT Ayden Alba MD LAB - COAGULATION ORDERABLES Final Result Performing Organization Address [facility] Co de Phone Number [facility] [address] [place] [address], [facility] [phone] * PT-INR (11/14/2024 8:14 PM CDT) PT 12.6 12.1 - 14.8 Seconds 11/14/2024 8:44 PM CDT [facility] INR 1.0 See Comment 11/14/2024 8:44 PM CDT [facility] Comment:The suggested therap eutic range for standard coumadin (warfarin) therapy is an INR of 2.0-3.0. For high-risk patients (Mechanical Mitral Valve Prosthesis, etc.), the suggested prophylactic therapeutic range is an INR of 2.5-3.5. Blood BLOOD SPECIMEN / Unknown Venipuncture / Unknown 11/14/2024 8:14 PM CDT 11/14/2024 8:20 PM CDT Ayden Alba MD LAB - COAGULATION ORDERABLES Final Result Performing Organization Address City/[facility] Co de Phone Number [address] [address], [facility] [phone] * CBC W AUTO DIFFERENTIAL (11/14/2024 8:14 PM CDT) WBC 7.4 4.0 - 10.7 x10E9/L 11/14/2024 8:28 PM CDT [facility] RBC Count 4.34 3.90 - 5.20 x10E12/L 11/14/2024 8:28 PM CDT [facility] Hemoglobin 12.5 11.9 - 15.8 g/dL 11/14/2024 8:28 PM CDT [facility] Hematocrit 37.9 34.8 - 46.1 % 11/14/2024 8:28 PM [facility] MCV 87.3 80.0 - 98.0 fL 11/14/2024 8:28 PM [facility] MCH 28.8 26.7 - 33.6 pg 11/14/2024 8:28 PM [facility] MCHC 33.0 31.7 - 36.3 g/dL 11/14/2024 8:28 PM [facility] RDW-CV 13.6 11.3 - 14.8 % 11/14/2024 8:28 PM [facility] Platelet Count 282 150 - 420 x10E9/L 11/14/2024 8:28 PM [facility] MPV 10.1 7.8 - 11.4 fL 11/14/2024 8:28 PM [facility] Neutrophil % 66.5 41.0 - 74.0 % 11/14/2024 8:28 PM [facility] Lymphocyte % 24.7 17.0 - 47.0 % 11/14/2024 8:28 PM [facility] Monocyte % 5.4 3.0 - 11.0 % 11/14/2024 8:28 PM [facility] Eosinophil % 3.0 0.0 - 7.0 % 11/14/2024 8:28 PM [facility] Basophil % 0.1 0.0 - 1.6 % 11/14/2024 8:28 PM [facility] Immature Granulocytes % 0.3 0.0 - 1.0 % 11/14/2024 8:28 PM [facility] Neutrophil Absolute 4.89 1.60 - 7.50 x10E9/L 11/14/2024 8:28 PM [facility] Lymphocyte Absolute 1.82 1.00 - 4.40 x10E9/L 11/14/2024 8:28 PM [facility] Monocyte Absolute 0.40 0.15 - 1.00 x10E9/L 11/14/2024 8:28 PM [facility] Eosinophil Absolute 0.22 0.00 - 0.60 x10E9/L 11/14/2024 8:28 PM [facility] Basophil Absolute 0.01 0.00 - 0.13 x10E9/L 11/14/2024 8:28 PM [facility] Blood BLOOD SPECIMEN / Unknown Venipuncture / Unknown 11/14/2024 8:14 PM CDT 11/14/2024 8:20 PM CDT us Ayden Alba MD LAB - HEMATOLOGY ORDERABLES Final Result [facility] [address] [place] [address], [facility] [phone] * (ABNORMAL) COMPREHENSIVE METABOLIC PANEL (11/14/2024 8:14 PM CDT) BUN 8 7 - 26 mg/dL 11/14/2024 8:52 PM [facility] Creatinine 0.55(L) 0.56 - 0.96 mg/dL 11/14/2024 8:52 PM [facility] Sodium 140 136 - 145 mmol/L 11/14/2024 8:52 PM [facility] Potassium 3.7 3.5 - 4.5 mmol/L 11/14/2024 8:52 PM [facility] Chloride 108(H) 98 - 107 mmol/L 11/14/2024 8:52 PM [facility] CO2 25 22 - 29 mmol/L 11/14/2024 8:52 PM [facility] Glucose 105(H) 70 - 99 mg/dL 11/14/2024 8:52 PM [facility] Calcium 9.3 8.4 - 10.2 mg/dL 11/14/2024 8:52 PM [facility] Protein Total 6.7 6.0 - 8.3 g/dL 11/14/2024 8:52 PM [facility] Albumin 3.7 3.4 - 5.0 g/dL 11/14/2024 8:52 PM [facility] Bilirubin Total 0.3 0.2 - 1.2 mg/dL 11/14/2024 8:52 PM [facility] Alkaline Phosphatase 150 40 - 150 U/L 11/14/2024 8:52 PM CDT [facility] ALT 23 5 - 55 U/L 11/14/2024 8:52 PM CDT [facility] AST 17 5 - 34 U/L 11/14/2024 8:52 PM T [facility] Anion Gap 7 6 - 16 11/14/2024 8:52 PM T [facility] BUN/Creatinine Ratio 15 7 - 23 11/14/2024 8:52 PM T [facility] Osmolality Calculated 289 275 - 295 mOsm/kg 11/14/2024 8:52 PM T [facility] Albumin/Globulin Ratio 1.2 1.1 - 2.3 11/14/2024 8:52 PM [facility] eGFR by CKD-EPI >90 >=90 mL/min/1.7 3 m2 11/14/2024 8:52 PM [facility] Comment:Estimated Glomerular Filtration Rate (eGFR) calculated using the CKD-EPI Creatinine Equation (2020), per the National Kidney Foundation and [place] Society of Nephrology recommendations. Blood BLOOD SPECIMEN / Unknown Venipuncture / Unknown 11/14/2024 8:14 PM CDT 11/14/2024 8:20 PM CDT Ayden Alba MD LAB - CHEMISTRY ORDERABLES F inal Result [facility] [address] [place] [address], [facility] [phone] * CT ANGIO BRAIN NECK STROKE (11/14/2024 [...] DATE/TIME OF EXAM: 11/14/2024 8:04 PM, LOCATION [facility] INDICATION: R53.1: Weakness ADDITIONAL CLINICAL INFORMATION: [...] STROKE, DATE/TIME OF EXAM: :04 PM, LOCATION [facility] INDICATION: R53.1: Weakness ADDITIONAL CLINICAL INFORMATION: [...] without significant focal stenosis. Hypoplasia of the [id number] of the right CASPER. The remaining right [...] DATE/TIME OF EXAM: 11/14/2024 7:45 PM, LOCATION [facility] INDICATION: R53.1: Weakness EXAMINATION: Computed tomography [...] DATE/TIME OF EXAM: 11/14/2024 7:45 PM, LOCATION [facility] INDICATION: R53.1: Weakness EXAMINATION: Computed tomography [...] Final Result from Last 3 Months Insurance [facility] Advance Directives * Full Code (Latest Code Status on File) Date Activated Date Inactivated Comments 11/14/2024 8:18 PM 11/16/2024 7:33 PM Care Teams Guest Service Agent Relationship Specialty Start Date End Date Herb Tate, MAGNETIC PROSPECTOR-GASSER MACHINE OPERATOR [address] [place] [phone] PCP - General Nurse Practitioner 11/14/24
--- OUTSIDE RECORDS SUMMARY | 2024-12-30 07:53 | XMS_ITS ---
Author Organization Unknown Address [place], [place] [id number] Phone Care Team Providers Care Flower Cheniller Name Role Phone ORQUIDEA EHRRERA Attending Unavailable NO PCP Primary Unavailable Immunization [...] LEVEL - Collect Peter e/Time: 11/01/2024 22:06 [facility] ID: [id number] [place] [address], [phone] LOINC: 30888-9 Test Value Unit Reference Range Code Code System Flag TROPONIN < 0.012 ng/mL L=0.000 H=0.033 59443-8 LOINC 4 PLEX RESPIRATORY COVID FLU RSV PCR - Collect Date/Time: 11/01/2024 18:13 [facility] ID: [id number] [address] [place], [place], [phone] LOINC: 32699-9 Test Value Unit Reference Range Code Code System Flag SARS CoV2 PCR NEGATIVE 26711-9 LOINC FLU A PCR NEGATIVE FLU B PCR NEGATIVE RSV PCR NEGATIVE SEND TO [facility]? NO URINALYSIS w/Microscopy/C&S if indicated - Collect Date/Time: 11/01/2024 17:48 [facility] ID: [id number] [place], [id number] LOINC: 20466-9 Test Value Unit Reference Range Code Code System Flag UR SOURCE VOIDED 55509-1 LOINC COLOR YELLOW YELLOW 5778-6 LOINC CLARITY SL CLOUDY CLEAR 81268-1 LOINC SPEC GRAVITY <=1.005 1.000-1.030 5811-5 LOINC PH 6.0 5.0 - 6.5 5803-2 LOINC LEUK EST 1+ NEGATIVE 5799-2 LOINC A NITRATE NEGATIVE NEGATIVE PROTEIN NEGATIVE NEGATIVE 5804-0 LOINC GLUCOSE NEGATIVE NEGATIVE 51702-1 LOINC KETONES NEGATIVE NEGATIVE 58073-6 LOINC UROBILINOGEN 0.2 0.2 - 1.0 5818-0 LOINC BILIRUBIN NEGATIVE NEGATIVE 65709-2 LOINC BLOOD NEGATIVE NEGATIVE 51974-7 LOINC WBC 5-10 0 - 2 54306-4 LOINC A RBC 0-2 0 - 2 35810-8 LOINC SQ EPITHELIAL MODERATE RARE-FEW BACTERIA NONE SEEN NONE SEEN 70859-6 LOINC MUCUS NONE SEEN NONE SEEN 8247-9 LOINC YEAST NOT PRESENT NOT PRESENT 82581-6 LOINC TRICHOMONAS NOT PRESENT NOT PRESENT 81452-8 LOINC SPERMATOZOA NOT PRESENT NOT PRESENT 14587-4 LOINC CASTS NOT PRESENT 77574-8 LOINC CRYSTALS NOT PRESENT 79025-9 LOINC CULTURE? NO 8251-1 LOINC DIAGNOSIS N/A URINE DRUG SCREEN 12 PANEL R APID - Collect Date/Time: 11/01/2024 17:48 [facility] ID: [id number] [place], [phone] LOINC: Test Value Unit Reference Range Code Code System Flag THC NEGATIVE PCP NEGATIVE COCAINE NEGATIVE 65687-5 LOINC METHAMPHETAMINES NEGATIVE OPIATES POSITIVE A AMPHETAMINES NEGATIVE 16212-9 LOINC BENZO POSITIVE 83070-6 LOINC A TCA NEGATIVE METHADONE NEGATIVE BARBITUATES NEGATIVE OXYCODONE NEGATIVE FENTANYL NEGATIVE CBC W/ DIFF - Collect Date/T ellen: 11/01/2024 17:33 [facility] ID: [id number] [address] [place], [place], [id number] LOINC: 29594-8 Test Value Unit Reference Range Code Code System Flag WBC 7.3 10^3uL L=4.0 H=10.5 RBC 4.09 10^6uL L=4.20 H=5.40 L HEMOGLOBIN 11.6 g/dL L=12.0 H=16.0 718-7 LOINC L HEMATOCRIT 36.2 VOL% L=37.0 H=47.0 4544-3 LOINC L MCV 88.5 fL L=81.0 H=99.0 MCH 28.4 pg L=27.0 H=32.0 MCHC 32.0 g/dL L=32.0 H=36.0 PLATELETS 291 10^3uL L=100 H=400 60908-6 LOINC RDW 13.4 % L=11.7 H=15.5 %GRAN 59.8 % L=40.0 H=70.0 14600-6 LOINC %LYMPH 30.1 % L=20.0 H=45.0 736-9 LOINC %MONO 6.7 % L=2.0 H=10.0 55465-6 LOINC %EOS 3.0 % L=0.0 H=6.0 713-8 LOINC %BASO 0.3 % L=0.0 H=3.0 706-2 LOINC #NEUT 4.4 10^3uL L=1.9 H=7.6 87131-1 LOINC #LYMPH 2.2 10^3uL L=0.9 H=4.9 67150-0 LOINC #MONO 0.5 10^3uL L=0.1 H=0.9 74391-3 LOINC #EOS 0.2 10^3uL L=0.0 H=0.6 712-0 LOINC #BASO 0.02 10^3uL L=0.00 H=0.10 58880-2 LOINC #IM GRANS 0.0 10^3uL L=0.0 H=7.0 37856-0 LOINC %IM GRANS 0.1 % L=0.0 H=5.0 95067-0 LOINC %NRB 0.0 L=0.0 H=0.2 66672-9 LOINC #NRB 0.000 L=0.000 H=0.012 61033-5 LOINC MANUAL DIFF NOT INDICATED RBC MORPH NOT INDICATED MAGNESIUM - Collect Date/Adrian e: 11/01/2024 17:33 [facility] ID: [id number] [address] [place] [address], [id number] LOINC: 40636-2 Test Value Unit Reference Range Code Code System Flag MAGNESIUM 1.8 mg/dL L=1.6 H=2.3 75377-1 LOINC CPK - Collect Date/Time: 17:33 [facility] ID: [id number] [address] [place] [address], [phone] LOINC: 2157-6 Test Value Unit Reference Range Code Code System Flag CPK 90 U/L L=30 H=170 7-6 LOINC LACTIC ACID - Collect Date/T ellen: 11/01/2024 17:33 [facility] ID: [id number] [address] [place] [address], [phone] LOINC: 17760-1 Test Value Unit Reference Range Code Code System Flag LACTIC ACID 1.3 mmol/L L=0.7 H=2.6 59925-7 LOINC AMYLASE - Collect Date/Time: 11/01/2024 17:33 [facility] ID: [id number] [address] [place] [address], [id number] LOINC: 1798-8 Test Value Unit Reference Range Code Code System Flag AMYLASE 53 U/L L=30 H=110 1798-8 LOINC LIPASE - Collect Date/Time: 11/01/2024 17:33 [facility] ID: [id number] [place] [address], [id number] LOINC: 3040-3 Test Value Unit Reference Range Code Code System Flag LIPASE 63 U/L L=23 H=300 3040-3 LOINC PROTIME - Collect Date/Time: 11/01/2024 17:33 [facility] ID: [id number] [address] [place] [address], [id number] LOINC: 22085-9 Test Value Unit Reference Range Code Code System Flag PT 9.7 Sec L=9.6 H=11.5 26283-1 LOINC INR 0.9 Sec L=0.9 H=1.1 58730-1 LOINC D DIMER - Collect Date/Time: 11/01/2024 17:33 [facility] ID: [id number] [address] [place] [address], [id number] LOINC: Test Value Unit Reference Range Code Code System Flag DDIMER 0.44 mg/L FEU L=0.00 H=0.50 PRO BNP - Collect Date/Time: 11/01/2024 17:33 [facility] ID: [id number] [address] [place] [address], [id number] LOINC: 83755-2 Test Value Unit Reference Range Code Code System Flag Pro BNP2 30 pg/mL L=0 H=900 90134-4 LOINC COMPREHENSIVE METABOLIC PANE L - Collect Date/Time: 11/01/2024 17:33 [facility] ID: [id number] [address] [place], [place], [id number] LOINC: 28052-9 Test Value Unit Reference Range Code Code [...] 2028-9 LOINC ANION GAP 10 L=10 H=20 74983-9 LOINC OSMOLALITY 289 mOs/kG L=280 H=296 58724-2 LOINC BUN/CREAT 18.3 3097-3 LOINC CALCIUM 9.1 mg/dL L=8.3 H=10.5 43054-1 LOINC AST 29 U/L L=15 H=46 1920-8 LOINC ALT 25 U/L L=9 H=72 1742-6 LOINC ALKALINE PHOS 109 U/L L=38 H=126 6768-6 LOINC TOTAL BILI 0.3 mg/dL L=0.2 H=1.3 1975-2 LOINC ALBUMIN 4.0 G/dL L=3.5 H=5.0 1751-7 LOINC TOTAL PROTEIN 6.6 g/L L=6.3 H=8.2 2885-2 LOINC A/G RATIO 1.5 69867-3 LOINC AGE 59 46924-4 LOINC eGFR NON-AFR 109 ml/min eGFR AFR AMER 132 ml/min TROPONIN LEVEL - Collect Peter e/Time: 11/01/2024 17:33 [facility] ID: [id number] [place], [id number] LOINC: 66612-7 Test Value Unit Reference Range Code Code System Flag TROPONIN < 0.012 ng/mL L=0.000 H=0.033 10092-8 LOINC CHEST 1V - Completed: 2024 18:32 LOINC: \TM00\\12PI\\DRAo\\BM09\ \MRHo\ [address] [address] ---------NAME--------- NUMBER SEX AGE ADMIT DISC. XRAY# F/C TYPE EMILIANO LYNN STERLING [id number] F 59 11/01/24 74135 XB7 E.R. DATE OF : 1965 M/R# [id number] #: [id number] ED-31 \[facility] LOCATION: TRANSCRIBED: 11/01/24 19:19 CHEST 1V 52137 COMPLETED:11/01/24 18:32 [facility] [id number] Chest Pain PHYSICIAN: ORQUIDEA Maya R A [...] congestion and/or viral pneumonia. Clinical correlation advised. RETTE \ITLo\ \UNDo\ \UNDx\ \ITLx\ Reviewed and Electronically Signed by: Scout Mcclellan MD Signed Date: 11/01/24 19:19 CHEST 2V - Completed: 2024 21:39 LOINC: \TM00\\12PI\\DRAo\\BM09\ \MRHo\ [address] [address] ---------NAME--------- NUMBER SEX AGE ADMIT DISC. XRAY# F/C TYPE EMILIANO LYNN STERLING [id number] F 59 11/01/24 51640 XB7 E.R. DATE OF : 1965 M/R# [id number] #: [id number] ED-31 \[facility]\ LOCATION: TRANSCRIBED: 11/01/24 21:40 CHEST 2V 41214 COMPLETED:11/01/24 21:39 MRP [id number] Chest Pain PHYSICIAN: ORQUIDEA Maya R A D I O L O G Y R E P O R T CHEST 2V INDICATION: Chest Pain TECHNIQUE: Two views of the chest COMPARISON: CHEST 1V on DOS: 11/01/24 FINDINGS/IMPRESSION: LUNGS: No pleural effusion, consolidation, or pneumothorax. Peripheral interstitial edema. MEDIASTINUM: Unremarkable BONES: No acute osseous abnormality OTHER: None RETTE \ITLo\ \UNDo\ \UNDx\ \ITLx\ Reviewed and Electronically Signed by: KHRIS WINN Signed Date: SIGNDATE US VENOUS LEFT LE - Complete d: 11/01/2024 19:13 LOINC: 69185-6 \TM00\\12PI\\DRAo\\BM09\ \MRHo\ [address] [address] ---------NAME--------- NUMBER SEX AGE ADMIT DISC. XRAY# F/C TYPE EMILIANO LYNN STERLING [id number] F 59 11/01/24 36527 XB7 E.R. DATE OF : 1965 M/R# [id number] #: [id number] ED-31 \[facility]\ LOCATION: TRANSCRIBED: 11/01/24 19:16 [place] [address] COMPLETED:11/01/24 19:13 MRP [id number] LEG SWELLING;Chest Pain PHYSICIAN: ORQUIDEA Maya R [...] THROMBOSIS IN THE LEFT LOWER EXTREMITY VEINS. RETTE \ITLo\ \UNDo\ \UNDx\ \ITLx\ Reviewed and Electronically Signed by: Scout Mcclellan MD Signed Date: 11/01/24 19:16 Social History Type Status Start Date End Date Code Code Syst em Smoking History Current every day smoker [id number] SNOMED CT Sex Female Hospital Discharge Instructions Should you have any questions prior to discharge, please contact a member of your healthcare team. If you have left the hospital and have any questions, please contact your primary care physician. Reason For Referral No Data Found Allergies and Adverse Reactions Allergy Substance Reaction Severity Start Date Concern Status Co de Code System CYCLOBENZAPRINE Active 26823 RxNorm PENICILLIN Active Plan of Treatment No Data Found Encounters Encounter Diagnosis Start Date Code Code Sys tem Other chest pain 11/01/2024 SNOMED-CT Personal Care Team Section Performer Name Performer Role Active Date Inactive Rohan Vicente PCP - Primary care physician 2024-01-04 2024-01-04 Imaging Narrative Notes [facility] 11/01/2024 19:21 [facility] [address] [place] [address] ---------NAME--------- NUMBER SEX AGE ADMIT DISC. XRAY# F/C TYPE EMILIANO LYNN STERLING [id number] F 59 11/01/24 06258 XB7 E.R. DATE OF : 1965 M/R# [id number] #: [id number] ED-31 LOCATION: TRANSCRIBED: 11/01/24 19:19 CHEST 1V 90291 COMPLETED:11/01/24 18:32 MRP [id number] Chest Pain PHYSICIAN: ORQUIDEA G RADIOLOGY REPORT CHEST RADIOGRAPH Indication: Chest Pain Technique: Single frontal view of the chest was obtained COMPARISON: None FINDINGS: Lines and Tubes: None Lungs: Congestion Pleura: No effusion. No pneumothorax. Cardiomediastinal contours: Unremarkable Bones: Unremarkable IMPRESSION: Increased interstital prominence. This may represent pulmonary vascular congestion and/or viral pneumonia. Clinical correlation advised. RETTE Reviewed and Electronically Signed by: Scout Mcclellan MD Signed Date: 11/01/24 19:19 [facility] 11/01/2024 21:[address] [address] ---------NAME--------- NUMBER SEX AGE ADMIT DISC. XRAY# F/C TYPE EMILIANO STERLING [id number] F 59 11/01/24 25262 XB7 EAlisaRAlisa DATE OF : 1965 M/R# [id number] #: [id number] ED-31 LOCATION: TRANSCRIBED: 11/01/24 21:40 CHEST 2V 12331 COMPLETED:11/01/24 21:39 MRP [id number] Chest Pain PHYSICIAN: ORQUIDEA Maya RADIOLOGY REPORT CHEST 2V INDICATION: Chest Pain TECHNIQUE: Two views of the chest COMPARISON: CHEST 1V on DOS: 11/01/24 FINDINGS/IMPRESSION: LUNGS: No pleural effusion, consolidation, or pneumothorax. Peripheral interstitial edema. MEDIASTINUM: Unremarkable BONES: No acute osseous abnormality OTHER: None RETTE Reviewed and Electronically Signed by: KHRIS WINN Signed Date: SIGNDATE [facility] 11/01/2024 19:19 [facility] [address] [place] [address] ---------NAME--------- NUMBER SEX AGE ADMIT DISC. XRAY# F/C TYPE EMILIANO STERLING [id number] F 59 11/01/24 06569 XB7 E.R. DATE OF : 1965 M/R# [id number] #: [id number] ED-31 LOCATION: TRANSCRIBED: 11/01/24 19:16 [place] [address] COMPLETED:11/01/24 19:13 MRP [id number] LEG SWELLING;Chest Pain PHYSICIAN: ORQUIDEA G RADIOLOGY [...] THROMBOSIS IN THE LEFT LOWER EXTREMITY VEINS. RETTE Reviewed and Electronically Signed by: Scout Mcclellan MD Signed Date: 11/01/24 19:16
--- OUTSIDE RECORDS SUMMARY | 2024-12-30 07:53 | XMS_ITS | Clinical Summary ---
Author Organization [facility] [address] Address [address] [place] [address] Phone Care Team Providers Care Cotton Expert Name Role Phone Rhianna Shepard Primary Care Provider [phone] Allergies No known active allergies Medications No known medications Social History Tobacco Use Types Packs/Day Years Used Date Smoking Tobacco: Former Smokeless Tobacco: Former Comments Unknown Sex and Gender Information Value Date Recorded Sex Assigned at Not on file Legal Sex Female 12:31 PM [employer] Gender Identity Not on file Sexual Orientation [...] Plan of Treatment Not on file Insurance [facility] Care Teams Cotton Expert Relationship Specialty Start Date End Date Rhianna Shepard PA [address] [place] [address] PCP - General Emergency Medicine 04/29/18
[2024-12-30 07:55] LABS: Lipase 44 U/L (23-300); NT Pro B Type Natriuretic Pept 73 pg/mL (19.9-100)
[2024-12-30 08:07] LABS: Troponin I < 0.012 ng/mL (0.000-0.034)
[2024-12-30] MEDS: cefTRIAXone 1 GM in SODIUM CHLORIDE 0.9% IV 50 ML 100 ML IVPB (08:32)
[2024-12-30] MEDS: AZITHROMYCIN IV 500 MG in SODIUM CHLORIDE 0.9% IV 250 ML IVPB (09:25)
--- NOTE | 2024-12-30 09:55 | ADMGEN ---
This patient, Palma Frost, was admitted to 2nd Floor Room 210-1. Patient oriented to hospital policies and general routines including ID bracelet, bed and alarms, visiting hours, pain management, procedures, bathroom and other care routines, personal items, smoking policy, room service/diet, and visiting hours. Information on how to activate the Rapid Response Team has been discussed. Patient are encouraged to report perceived risks to care and to ask questions if they do not understand what they are told or what they should do.
--- NOTE | 2024-12-30 12:23 | P.HP_ITS ---
H&P: HPI History of Present Illness Date/Time: 12/30/24 12:23 Chief Complaint: Chest Pain/SOB Narrative: Patient is a 59-year-old female with past medical history of bipolar disorder, HTN, HLD, and diabetes who presented to the emergency department with complaints chest pain and shortness of breaths. 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 patient states she attempted to use her inhaler with no relief and when she attempted to use the restroom she was unable to due to severe weakness and shortness of breaths at which time she called EMS for evaluation. In the ED: patient with leukocytosis other labs unremarkable, vitals with tachycardia and tachypnea and mild hypoxia 91%. CT chest was negative for PE but did show right middle and lower lobe airspace disease compatible with pneumonia. patient was unable to void in the emergency department UA is pending. Patient was admitted to the medical unit for further treatment of pneumonia Review of Systems Review of Systems: All systems reviewed & are unremarkable except as noted in HPI and below PMFSH Past Medical History Medical History (Updated 12/30/24 @ 12:31 by Robina Parks APRN) Diabetes Pulmonary embolism After cholecystectomy in 1991 Migraines Bipolar disorder Morbid obesity with BMI of 40.0-44.9, adult Necrotizing pneumonia Two thousand twenty-two Insect bite Hx MRSA infection Congestive heart failure Hypertension COPD (chronic obstructive pulmonary disease) Asthma Anxiety Depression Surgical History Surgical History History of hysterectomy for benign disease (2007) History of left oophorectomy (~2007) History of incision and drainage Several areas to left forearm for MRSA 2002 History of cholecystectomy (~1991) History of tubal ligation Family History Family History Father Valvular heart disease Mother , Mother at age 60. 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 Social History Social History Social History: The patient is but lives with her boyfriend, of 26 years, and her daughter and granddaughter. She has a daughter and a son. Her oldest son She used to binge drink about once a month until she was unconscious but quit drinking alcohol around age 41. She used to smoke crack cocaine from about age 26 to age 41. She reports she started smoking in order to deal with her withdrawal from the other substances and she proceeded to smoke 1.5 packs of cigarettes per day for about 8 years but quit smoking at age 51. She works at [employer] in the [employer]. Code status: Full code Surrogate decision maker: Her son Smoking packs per day: 1.5 Smoking cigarettes per day: 30.0 Years smoked: 8 Smoking pack-years: 12.00 Smoking status: Former smoker Tobacco type: cigarettes Second hand tobacco smoke exposure: Yes Smoking end date: 02/06/16 Additional smoking assessment comments: Began smoking pot as a kid and quit 2017. Began smoking cigarettes after Alcohol intake: former Substance use: former Substance use type: former substance user Other substance usage details: former marijuna user Do You Feel Safe in your Home?: Yes Lack of Transportation: No Lack of Food: Never True Current Housing: I Do Not Have Housing Concerned About Future Housing: No Difficulty Paying Gas/Electric Bills: No Difficulty Paying for Meds: No Currently Unemployed: No Education: High School Diploma/GED Difficulty w/ Childcare or Family Care: No Spiritual care concerns: No ([facility]) Meds Home Medications and Allergies Home Medications ?Medication ?Instructions ?Recorded ?Confirmed ?Type omeprazole magnesium 20 mg 20 mg PO DAILY 04/13/19 History tablet,delayed release (Prilosec OTC) atorvastatin 40 mg tablet 60 mg PO DAILY 06/01/2112/07 History fluoxetine 40 mg capsule (Prozac) 20 mg PO BID 2 12/30/24 History multivitamin with minerals 1 tablet PO DAILY 12/01/21 12/30/24 History albuterol sulfate 90 mcg/actuation 2 puff inhalation Q 4H PRN Wheezing 12/06/21 12/30/24 Rx aerosol inhaler #1 g lisinopril 40 mg tablet 40 mg PO DAILY 10/31/2212/07 History metformin 500 mg tablet,extended 500 mg PO BID 4 12/30/24 History release 24 hr topiramate 50 mg tablet 50 mg PO DAILY 09/28/2312/07 History alprazolam 1 mg tablet 1 mg PO BID PRN Anxiety 07/0712/30/24 History aspirin 81 mg tablet,delayed 81 mg PO QAM #30 tabs 12/30/24 Rx release atorvastatin 20 mg tablet 20 mg PO DAILY 08/12/2412/07 History lidocaine 5 % topical patch 1 patch topical DAILY PRN pain #15 11/05/24 12/30/24 Rx ea olanzapine 7.5 mg tablet 7.5 mg PO HS 11/24/24 History Allergies Allergy/AdvReac Type Severity Reaction Status Date / Time No Known Allergies Allergy Unknown Verified 12/30/24 10:37 Vital Signs Vital Signs - 24 hr 12/30/24 06:55 12/30/24 07:00 12/30/24 07:00 Temperature 98.1 F Pulse Rate 119 H 111 H Respiratory Rate 22 H Blood Pressure 116/79 Pulse Oximetry 93 92 Oxygen Delivery Nasal Cannula Room Air Oxygen Flow Rate 3 12/30/24 07:10 12/30/24 07:12 12/30/24 07:15 Temperature Pulse Rate 115 H 117 H Respiratory Rate 27 H 28 H Blood Pressure Pulse Oximetry 94 91 91 Oxygen Delivery Nasal Cannula Oxygen Flow Rate 2 12/30/24 07:30 12/30/24 07:30 12/30/24 07:42 Temperature Pulse Rate 109 H 114 H 119 H Respiratory Rate 20 28 H Blood Pressure 123/95 H Pulse Oximetry 93 92 Oxygen Delivery Oxygen Flow Rate 12/30/24 07:45 12/30/24 07:46 12/30/24 07:50 Temperature Pulse Rate 117 H 116 H 117 H Respiratory Rate 31 H 23 H 32 H Blood Pressure 120/90 106/72 Pulse Oximetry 92 92 92 Oxygen Delivery Oxygen Flow Rate 12/30/24 07:51 12/30/24 08:00 12/30/24 08:00 Temperature Pulse Rate 117 H 114 H 112 H Respiratory Rate 26 H 27 H Blood Pressure 108/72 Pulse Oximetry 91 93 Oxygen Delivery Oxygen Flow Rate 12/30/24 08:01 12/30/24 08:10 12/30/24 08:28 Temperature Pulse Rate 123 H 109 H Respiratory Rate 24 H 18 Blood Pressure Pulse Oximetry 94 94 93 Oxygen Delivery Nasal Cannula Oxygen Flow Rate 2 12/30/24 08:30 12/30/24 08:45 12/30/24 08:56 Temperature Pulse Rate 105 H 103 H 101 H Respiratory Rate 28 H 25 H 27 H Blood Pressure 94/63 L Pulse Oximetry 94 95 94 Oxygen Delivery Oxygen Flow Rate 12/30/24 09:00 12/30/24 09:00 12/30/24 09:01 Temperature Pulse Rate 113 H 100 104 H Respiratory Rate 25 H 24 H Blood Pressure 102/75 Pulse Oximetry 93 93 Oxygen Delivery Oxygen Flow Rate 12/30/24 09:15 12/30/24 09:16 12/30/24 09:30 Temperature 98 F Pulse Rate 104 H 103 H 99 Respiratory Rate 28 H 26 H 20 Blood Pressure 104/65 105/69 Pulse Oximetry 94 93 94 Oxygen Delivery Oxygen Flow Rate 12/30/24 09:31 12/30/24 09:37 12/30/24 09:45 Temperature Pulse Rate 102 H 98 Respiratory Rate 18 29 H Blood Pressure 108/59 L Pulse Oximetry 93 93 94 Oxygen Delivery Nasal Cannula Oxygen Flow Rate 2 12/30/24 09:46 Temperature Pulse Rate 101 H Respiratory Rate 26 H Blood Pressure Pulse Oximetry 93 Oxygen Delivery Oxygen Flow Rate Exam Const: General: uncomfortable Other: pleasant weight female mild diaphoresis. HENMT: Mouth: Yes dry mucous membranes Eyes: General: appearance normal, both eyes and all related structures Sclera: sclerae normal Neck: Neck: supple Resp: Auscultation: diminished lung sounds on the right Other: tachypnea and use of accessory muscles Cardio: Rate: tachycardic Rhythm: regular rhythm GI: Auscultation: normal bowel sounds Other: Round Skin: General skin exam: normal color and no rashes or lesions noted Wounds: no wounds Neuro: General: gait normal Speech: normal speech Sensory Exam: normal sensation Extrem: General: normal to inspection Psych: Mental Status: mental status grossly normal Affect: normal affect H&P: Results Labs Labs: Short CBC 12/30/24 Range/Units 07:27 WBC 11.0 H (4.8-10.8) K/mm3 Hgb 12.2 (12.0-15.0) g/dL Hct 38.0 (35.0-49.0) % Plt Count 288 (150-420) K/mm3 BMP 12/30/24 07:27 Sodium 140 Potassium 3.7 Chloride 104 Carbon Dioxide 25 BUN 10 Creatinine 0.56 L Glucose 104 Calcium 8.7 Cardiac Enzymes 12/30/24 Range/Units 07:27 Troponin I < 0.012 (0.000-0.034) ng/mL Liver Function 12/30/24 Range/Units 07:27 Total Bilirubin 0.6 (0.2-1.3) mg/dL AST 29 (14-36) U/L ALT 29 (6-35) U/L Alkaline Phosphatase 131 H (38-126) U/L Albumin 3.8 (3.5-5.1) g/dL Imaging CT scan - chest: Radiologist's impression: EXAMINATION: CTA chest PE protocol DATE: 12/30/2024 8:53 PROPERTY CONTROLLER INDICATION: Elevated d-dimer. Hypoxia. TECHNIQUE: Computed tomographic angiography (CTA) of the chest was performed with 100 mL Omnipaque-350 intravenous contrast. The dose-length product was 775.81 mGy-cm. Maximum intensity projection 3D-reconstructions of the aorta and other arteries were constructed by the technologist on a separate workstation. COMPARISON: CT dated 01/16/2024. FINDINGS: Study is suboptimal due to motion artifact. No large central pulmonary embolism. No significant pleural or pericardial effusion. Small hiatal hernia. No thoracic lymphadenopathy. There is patchy airspace consolidation in the right middle and lower lobe, consistent with pneumonia. No endobronchial lesions. No pneumothorax. No thoracic lymphadenopathy. Status post cholecystectomy. 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 There is levoscoliosis of the thoracic spine. Mild thoracic spondylosis. IMPRESSION: 1. Patchy right middle and lower lobe airspace disease, compatible with pneumonia. 2: No large central pulmonary embolism. Study limited due to motion. Assessment and Plan Assessment and plan (1) Pneumonia involving right lung: Qualifiers: Lung location: unspecified part of lung Pneumonia type: due to unspecified organism Qualified Code(s): J18.9 - Pneumonia, unspecified organism Code(s): J18.9 - Pneumonia, unspecified organism Status: Acute Assessment and Plan: CT chest showing right middle and lower lobe pneumonia with leukocytosis, hypoxia and chest congestion * IV ceftriaxone and azithromycin p.o. * incentive spirometer * mucolytics * duo nebs * blood cultures pending * supplemental oxygen to maintain 92% wean as tolerated (2) Acute respiratory failure with hypoxia: Code(s): J96.01 - Acute respiratory failure with hypoxia Status: Acute Assessment and Plan: patient with mild hypoxia POA at 91% improved with supplemental oxygen 2 L * supplemental oxygen p.r.n. to maintain 92% * PE by CTA (3) Bipolar disorder: Code(s): F31.9 - Bipolar disorder, unspecified Status: Acute Assessment and Plan: * continued patient's Zyprexa and Xanax (4) Dyslipidemia: Code(s): E78.5 - Hyperlipidemia, unspecified Status: Acute Assessment and Plan: * continue patient's atorvastatin she takes 60 mg total 1 40 mg tablet and 1 20 mg tablet (5) Hypertension: Code(s): I10 - Essential (primary) hypertension Status: Acute Assessment and Plan: * continue patient's lisinopril * monitor BP per unit protocol (6) Diabetes: Code(s): E11.9 - Type 2 diabetes mellitus without complications Status: Acute Assessment and Plan: * Accu-Cheks a.kyra HS * will hold patient's metformin * low-dose SSI * diabetic diet * glycemic protocol Plan Code status: Full code per patient DVT prophylaxis: Lovenox Stress ulcer prophylaxis: Protonix 40 daily home medication PT/OT notes: ambulatory Disposition: patient was admitted to the medical unit for treatment acute respiratory failure with hypoxia secondary to pneumonia will continue with IV antibiotic therapy pending blood cultures and wean oxygen as tolerated. patient is ambulatory on own to return when medically stable at discharge Quality VTE Prophylaxis VTE prophylaxis: pharmacologic ordered -Patient's previous records reviewed on admission -ER notes reviewed in detail on admission -discussed all findings and current treatment plan with patient/Family/POA -Consultations reviewed for recommendations -Patient's disposition for safe discharge discussed with cyanide case hardener -radiology imaging, EKG and test results I have personally reviewed and interpreted unless otherwise specified Dictation performed by [employer] direct speech recognition software, therefore hook and eye attacher variants and typographical errors may occur. Hospitalist MIPS Advance Care Plan I have confirmed that the patient's Advanced Care Plan is present, code status is documented, or surrogate decision maker is listed in patient medical record.: Yes Medication Reconciliation I have utilized all available resources to obtain, update and review the patients current medications (includes all prescriptions, OTC, herbals, cannabis, and nutritional supplements).: Yes The patient is not eligible for med reconciliation; the patient is in a emergent medical situation where delaying treatment would jeopardize the patients health.: No
[2024-12-30 12:44] LABS: Add Urine Microscopic? NO; Appearance Urine Clear (Clear); Glucose Urine UA Negative (Negative); Leukocyte Esterase Ur Negative LEU/UL (Negative); Nitrate Urine Negative (Negative); Specific Grav Ur <= 1.005 (1.010-1.020)
[2024-12-30] MEDS: IPRATROPIUM 0.5 MG/ALBUTEROL SULFATE 2.5 MG (BASE) AMPUL.NEB 3 ML INHALATION ×3 (13:04→23:41)
[2024-12-30 13:11] LABS: Cannabinoid Screen Urine Negative (Negative)
[2024-12-30] MEDS: INSULIN HUMAN LISPRO (*BKC) 1,000 UNITS/10 ML VIAL SUB-Q (17:13)
[2024-12-30] MEDS: ALPRAZolam (*CRX) 0.5 MG TABLET 1 MG PO (21:17)
[2024-12-30] MEDS: guaiFENesin 12 HR 600 MG TABCR 1200 MG PO (21:17)
[2024-12-31] VITALS (7 sets, daily range): BP systolic 123; BP diastolic 73; PULSE 60–108; RESP 16–18; TEMP 36.2; O2SAT 92–100
[2024-12-31] MEDS: IPRATROPIUM 0.5 MG/ALBUTEROL SULFATE 2.5 MG (BASE) AMPUL.NEB 3 ML INHALATION ×2 (05:44→11:28)
[2024-12-31 05:50] LABS: Hematocrit 36.3 % (35.0-49.0); Hemoglobin 11.4 g/dL (12.0-15.0); Immature Granulocyte Percent A 0.5 % (0.0-0.0); Lymphocytes Absolute Auto 1.23 K/mm3 (1.10-4.50); Mean Corpuscular HGB Conc 31.4 g/dL (32-36); Mean Corpuscular Hemoglobin 28.1 pg (27.0-31.0); Mean Corpuscular Volume 89.6 fL (78.0-102.0); Nucleated Red Blood Cells Absolute Auto 0.00 K/mm3 (0.00-0.00); Nucleated Red Blood Cells Perc 0.0 % (0-0.0); Platelet Count Result 319 K/mm3 (150-420); Red Blood Count 4.05 M/mm3 (4.20-5.40); White Blood Count 14.2 K/mm3 (4.8-10.8)
[2024-12-31 06:02] LABS: Alanine Aminotransferase 25 U/L (6-35); Albumin Level 3.9 g/dL (3.5-5.1); Alkaline Phosphatase 126 U/L (38-126); Anion Gap 11 mmol/L (4-12); Aspartate Amino Transferase 22 U/L (14-36); Bilirubin,Total 0.3 mg/dL (0.2-1.3); Blood Urea Nitrogen 14 mg/dL (7-17); Calcium 9.5 mg/dL (8.4-10.2); Carbon Dioxide 27 mmol/L (22-30); Chloride 102 mmol/L (98-107); Estimated CRCL calculation 125 ml/min; Estimated Glomerular Filt Rate > 60; Glucose 144 mg/dL (65-110); Magnesium 2.1 mg/dL (1.6-2.3); Osmolality Calculated 293 mOsm/kg (285-295); Potassium 4.3 mmol/L (3.4-5.0); Sodium 140 mmol/L (137-145); Total Protein 6.4 g/dL (6.3-8.2)
[2024-12-31] MEDS: cefTRIAXone 1 GM in SODIUM CHLORIDE 0.9% IV 50 ML 100 ML IVPB (06:46)
--- NOTE | 2024-12-31 07:29 | P.PNIM_ITS ---
Progress Note: A&P Assessment and Plan (1) Pneumonia involving right lung: Qualifiers: Lung location: unspecified part of lung Pneumonia type: due to unspecified organism Qualified Code(s): J18.9 - Pneumonia, unspecified organism Code(s): J18.9 - Pneumonia, unspecified organism Status: Acute Assessment and Plan: CT chest showing right middle and lower lobe pneumonia with leukocytosis, hypoxia and chest congestion * IV ceftriaxone and azithromycin p.o. * incentive spirometer * mucolytics * duo nebs * blood cultures pending * supplemental oxygen to maintain 92% wean as tolerated (2) Acute respiratory failure with hypoxia: Code(s): J96.01 - Acute respiratory failure with hypoxia Status: Acute Assessment and Plan: patient with mild hypoxia POA at 91% improved with supplemental oxygen 2 L * supplemental oxygen p.r.n. to maintain 92% * PE by CTA (3) Bipolar disorder: Code(s): F31.9 - Bipolar disorder, unspecified Status: Acute Assessment and Plan: * continued patient's Zyprexa and Xanax (4) Dyslipidemia: Code(s): E78.5 - Hyperlipidemia, unspecified Status: Acute Assessment and Plan: * continue patient's atorvastatin she takes 60 mg total 1 40 mg tablet and 1 20 mg tablet (5) Hypertension: Code(s): I10 - Essential (primary) hypertension Status: Acute Assessment and Plan: * continue patient's lisinopril * monitor BP per unit protocol (6) Diabetes: Code(s): E11.9 - Type 2 diabetes mellitus without complications Status: Acute Assessment and Plan: * Accu-Luis ALEJO * will hold patient's metformin * low-dose SSI * diabetic diet * glycemic protocol Plan Code status: Full code per patient DVT prophylaxis: Lovenox Stress ulcer prophylaxis: Protonix 40 daily home medication PT/OT notes: ambulatory Disposition: patient was admitted to the medical unit for treatment acute respiratory failure with hypoxia secondary to pneumonia will continue with IV antibiotic therapy pending blood cultures and wean oxygen as tolerated. patient is ambulatory on own to return when medically stable at discharge Subjective Date/time seen: 12/31/24 07:29 Review of Systems Review of Systems: All systems reviewed & are unremarkable except as noted in HPI and below Exam Const: General: uncomfortable Other: pleasant weight female mild diaphoresis. HENMT: Mouth: Yes dry mucous membranes Eyes: General: appearance normal, both eyes and all related structures Sclera: sclerae normal Neck: Neck: supple Resp: Auscultation: diminished lung sounds on the right Other: tachypnea and use of accessory muscles Cardio: Rate: tachycardic Rhythm: regular rhythm GI: Auscultation: normal bowel sounds Other: Round Skin: General skin exam: normal color and no rashes or lesions noted Wounds: no wounds Neuro: General: gait normal Speech: normal speech Sensory Exam: normal sensation Extrem: General: normal to inspection Psych: Mental Status: mental status grossly normal Affect: normal affect Objective Data Vital Signs Vital Signs: Vital Signs - 24 hr 12/30/24 07:30 12/30/24 07:30 12/30/24 07:42 Temperature Pulse Rate 109 H 114 H 119 H Respiratory Rate 20 28 H Blood Pressure 123/95 H Pulse Oximetry 93 92 Oxygen Delivery Oxygen Flow Rate 12/30/24 07:45 12/30/24 07:46 12/30/24 07:50 Temperature Pulse Rate 117 H 116 H 117 H Respiratory Rate 31 H 23 H 32 H Blood Pressure 120/90 106/72 Pulse Oximetry 92 92 92 Oxygen Delivery Oxygen Flow Rate 12/30/24 07:51 12/30/24 08:00 12/30/24 08:00 Temperature Pulse Rate 117 H 114 H 112 H Respiratory Rate 26 H 27 H Blood Pressure 108/72 Pulse Oximetry 91 93 Oxygen Delivery Oxygen Flow Rate 12/30/24 08:01 12/30/24 08:10 12/30/24 08:28 Temperature Pulse Rate 123 H 109 H Respiratory Rate 24 H 18 Blood Pressure Pulse Oximetry 94 94 93 Oxygen Delivery Nasal Cannula Oxygen Flow Rate 2 12/30/24 08:30 12/30/24 08:45 12/30/24 08:56 Temperature Pulse Rate 105 H 103 H 101 H Respiratory Rate 28 H 25 H 27 H Blood Pressure 94/63 L Pulse Oximetry 94 95 94 Oxygen Delivery Oxygen Flow Rate 12/30/24 09:00 12/30/24 09:00 12/30/24 09:01 Temperature Pulse Rate 113 H 100 104 H Respiratory Rate 25 H 24 H Blood Pressure 102/75 Pulse Oximetry 93 93 Oxygen Delivery Oxygen Flow Rate 12/30/24 09:15 12/30/24 09:16 12/30/24 09:30 Temperature 98 F Pulse Rate 104 H 103 H 99 Respiratory Rate 28 H 26 H 20 Blood Pressure 104/65 105/69 Pulse Oximetry 94 93 94 Oxygen Delivery Oxygen Flow Rate 12/30/24 09:31 12/30/24 09:37 12/30/24 09:45 Temperature Pulse Rate 102 H 98 Respiratory Rate 18 29 H Blood Pressure 108/59 L Pulse Oximetry 93 93 94 Oxygen Delivery Nasal Cannula Oxygen Flow Rate 2 12/30/24 09:46 12/30/24 10:00 12/30/24 12:19 Temperature Pulse Rate 101 H Respiratory Rate 26 H Blood Pressure Pulse Oximetry 93 93 92 Oxygen Delivery Nasal Cannula Oxygen Flow Rate 2 12/30/24 13:05 12/30/24 13:11 12/30/24 14:00 Temperature 97.2 F L Pulse Rate 97 94 97 Respiratory Rate 18 18 24 H Blood Pressure 117/77 Pulse Oximetry 95 98 92 Oxygen Delivery Nasal Cannula Oxygen Flow Rate 2 2 12/30/24 14:00 12/30/24 16:00 12/30/24 17:08 Temperature Pulse Rate 94 92 Respiratory Rate 18 Blood Pressure Pulse Oximetry 96 92 Oxygen Delivery Nasal Cannula Oxygen Flow Rate 2 2 12/30/24 17:16 12/30/24 23:44 12/30/24 23:46 Temperature 97.5 F L Pulse Rate 90 85 Respiratory Rate 18 16 Blood Pressure 110/66 Pulse Oximetry 96 91 92 Oxygen Delivery Nasal Cannula Oxygen Flow Rate 2 2 12/31/24 05:45 12/31/24 05:56 Temperature Pulse Rate 60 62 Respiratory Rate 16 16 Blood Pressure Pulse Oximetry 93 98 Oxygen Delivery Oxygen Flow Rate 2 Intake/Output Intake/Output: Intake & Output 12/28/24 12/29/24 12/30/24 12/31/24 23:59 23:59 23:59 23:59 Intake Total 1500 550 Output Total 1450 1250 Balance 50 -700 Meds/Results Medications: Active Medications Generic Name Dose Route Start Last Admin Trade Name Freq PRN Reason Stop Dose Admin Acetaminophen 650 mg 12/30/24 12:19 Acetaminophen 325 Mg Tablet PO Q4H PRN Mild Pain (1-3) or Fever Hydrocodone Bitart/Acetaminophen 1 tab 12/30/24 12:19 Hydrocodone/Acetaminophen (*Crx) 5-325 Mg Tablet PO Q4H PRN Moderate Pain (4-6) Albuterol/Ipratropium 3 ml 12/30/24 12:30 12/31/24 05:44 Ipratropium 0.5 Mg/Albuterol Sulfate 2.5 Mg (Base) Ampul.Neb 3 Ml INHALATION 3 ml Q6HRT DANAE Administration Alprazolam 1 mg 12/30/24 12:05 12/30/24 21:17 Alprazolam (*Crx) 0.5 Mg Tablet PO 1 mg BID PRN Administration Anxiety Aspirin 81 mg 12/31/24 09:00 Aspirin 81 Mg Enteric Tablet PO QAM [facility] Atorvastatin Calcium 20 mg 12/31/24 09:00 Atorvastatin 10 Mg Tablet PO DAILY [facility] Atorvastatin Calcium 40 mg 12/31/24 09:00 Atorvastatin 40 Mg Tablet PO DAILY [facility] Azithromycin 500 mg 12/31/24 09:00 Azithromycin 250 Mg Tablet PO DAILY [facility] Dextrose 12.5 gm 12/30/24 12:22 Dextrose 50% 25 Gm/50 Ml Syringe IV PUSH PRN PRN Hypoglycemia Protocol Enoxaparin Sodium 40 mg 12/31/24 09:00 Enoxaparin 40 Mg/0.4 Ml Syringe SUB-Q DAILY [facility] Fluoxetine HCl 20 mg 12/30/24 21:00 12/30/24 21:17 Fluoxetine Hcl 20 Mg Capsule PO 20 mg Q12HR DANAE Administration Glucagon 1 mg 12/30/24 12:22 Glucagon For Inj 1 Mg Vial IM PRN PRN Hypoglycemia Protocol Glucose 15 gm 12/30/24 12:22 Glucose Oral Gel 15 Gm Of Glucse In 37.5 Gm Tube PO PRN PRN Hypoglycemia Protocol Guaifenesin 1,200 mg 12/30/24 21:00 12/30/24 21:17 Guaifenesin 12 Hr 600 Mg Tabcr PO 1,200 mg Q12HR DANAE Administration Ceftriaxone Sodium 1 gm/ 50 mls @ 100 mls/hr 12/31/24 07:00 12/31/24 07:18 Sodium Chloride IVPB Infused Q24H DANAE Infusion Dextrose 1,000 mls @ 100 mls/hr 12/30/24 12:22 Dextrose 5% 1,000 Ml IVPB PRN PRN Hypoglycemia Protocol Insulin Human Lispro 2 - 5 units 12/30/24 17:00 12/30/24 17:13 Insulin Human Lispro (*Bkc) 1,000 Units/10 Ml Vial SUB-Q 2 units TIDWM DANAE Administration Protocol Lidocaine 1 patch 12/30/24 12:05 Lidocaine 5% Patch TOPICAL DAILY PRN Pain Lisinopril 40 mg 12/31/24 09:00 Lisinopril 20 Mg Tablet PO DAILY [facility] Multivitamins/Calcium 1 tablet 12/31/24 09:00 Therapeutic Multivitamins/Minerals Tab (*Bkc) PO DAILY [facility] Olanzapine 7.5 mg 12/30/24 21:00 12/30/24 21:17 Olanzapine 2.5 Mg Tablet PO 7.5 mg HS DANAE Administration Ondansetron HCl 4 mg 12/30/24 12:19 Ondansetron Inj 4 Mg/2 Ml Vial IV PUSH Q6H PRN Nausea And Vomiting Pantoprazole Sodium 40 mg 12/31/24 09:00 Pantoprazole 40 Mg Tablet PO QAM [facility] Topiramate 50 mg 12/31/24 09:00 Topiramate 25 Mg Tablet PO DAILY [facility] Radiology Results: ITS Impressions Chest X-Ray 12/30/24 07:51 IMPRESSION: 1. Persistent interstitial pulmonary edema and/or pneumonitis. 2. Developing airspace disease right lower lobe. Chest CTA 12/30/24 08:53 IMPRESSION: 1. Patchy right middle and lower lobe airspace disease, compatible with pneumonia. 2: No large central pulmonary embolism. Study limited due to motion. Labs Labs: Laboratory Results - last 24 hr 12/30/24 12/30/24 12/30/24 07:27 12:28 12:29 WBC 11.0 H RBC 4.31 Hgb 12.2 Hct 38.0 MCV 88.2 MCH 28.3 MCHC 32.1 RDW 13.6 Plt Count 288 MPV 9.3 Immature Gran % (Auto) 0.5 H Neut % (Auto) 88.5 H Lymph % (Auto) 6.9 L [place] % (Auto) 3.7 Eos % (Auto) 0.3 L Baso % (Auto) 0.1 Lymph # (Auto) 0.76 L [place] # (Auto) 0.41 Eos # (Auto) 0.03 Baso # (Auto) 0.01 Abs Immat Gran (auto) 0.06 H Absolute Neuts (auto) 9.72 H Absolute Nucleated RBC 0.00 Nucleated RBC % 0.0 D-Dimer 1.73 H Sodium 140 Potassium 3.7 Chloride 104 Carbon Dioxide 25 Anion Gap 11 BUN 10 Creatinine 0.56 L Estim Creat Clear Calc 125 Estimated GFR > 60 Glucose 104 POC Capillary Glucose Calculated Osmolality 289 Calcium 8.7 Magnesium Total Bilirubin 0.6 AST 29 ALT 29 Alkaline Phosphatase 131 H Troponin I < 0.012 NT-Pro-B Natriuret Pep 73 Total Protein 6.6 Albumin 3.8 Lipase 44 Urine Color Light yellow Urine Appearance Clear Urine pH 7.0 Ur Specific [place] <= 1.005 L Urine Protein Negative Urine Glucose (UA) Negative Urine Ketones Negative Ur Blood (Man) Negative Urine Nitrate Negative Urine Bilirubin Negative Urine Urobilinogen 1.0 Leukocyte Esterase Rfl Negative Urine Opiates Screen Negative Urine Methadone Screen Negative Ur Barbiturates Screen Negative Ur Phencyclidine Scrn Negative Ur Amphetamine Screen Negative U Benzodiazepines Scrn Positive A Urine Cocaine Screen Negative U Cannabinoids Screen Negative 12/30/24 12/30/24 12/31/24 16:40 21:21 05:19 WBC 14.2 H RBC 4.05 L Hgb 11.4 L Hct 36.3 MCV 89.6 MCH 28.1 MCHC 31.4 L RDW 13.7 Plt Count 319 MPV 9.8 Immature Gran % (Auto) 0.5 H Neut % (Auto) 87.5 H Lymph % (Auto) 8.7 L [place] % (Auto) 3.2 Eos % (Auto) 0.0 L Baso % (Auto) 0.1 Lymph # (Auto) 1.23 [place] # (Auto) 0.45 Eos # (Auto) 0.00 L Baso # (Auto) 0.01 Abs Immat Gran (auto) 0.07 H Absolute Neuts (auto) 12.41 H Absolute Nucleated RBC 0.00 Nucleated RBC % 0.0 D-Dimer Sodium 140 Potassium 4.3 Chloride 102 Carbon Dioxide 27 Anion Gap 11 BUN 14 Creatinine 0.56 L Estim Creat Clear Calc 125 Estimated GFR > 60 Glucose 144 H POC Capillary Glucose 222 H 211 H Calculated Osmolality 293 Calcium 9.5 Magnesium 2.1 Total Bilirubin 0.3 AST 22 ALT 25 Alkaline Phosphatase 126 Troponin I NT-Pro-B Natriuret Pep Total Protein 6.4 Albumin 3.9 Lipase Urine Color Urine Appearance Urine pH Ur Specific [place] Urine Protein Urine Glucose (UA) Urine Ketones Ur Blood (Man) Urine Nitrate Urine Bilirubin Urine Urobilinogen Leukocyte Esterase Rfl Urine Opiates Screen Urine Methadone Screen Ur Barbiturates Screen Ur Phencyclidine Scrn Ur Amphetamine Screen U Benzodiazepines Scrn Urine Cocaine Screen U Cannabinoids Screen Quality VTE Prophylaxis VTE prophylaxis: pharmacologic ordered
[2024-12-31] MEDS: THERAPEUTIC MULTIVITAMINS/MINERALS TAB (*BKC) 1 TABLET PO (09:14)
[2024-12-31] MEDS: PANTOPRAZOLE 40 MG TABLET PO (09:15)
[2024-12-31] MEDS: ATORVASTATIN 10 MG TABLET 20 MG PO (09:16)
[2024-12-31] MEDS: AZITHROMYCIN 250 MG TABLET 500 MG PO (09:16)
[2024-12-31] MEDS: guaiFENesin 12 HR 600 MG TABCR 1200 MG PO (09:16)
[2024-12-31] MEDS: ASPIRIN 81 MG ENTERIC TABLET PO (09:16)
[2024-12-31] MEDS: ATORVASTATIN 40 MG TABLET PO (09:17)
[2024-12-31] MEDS: TOPIRAMATE 25 MG TABLET 50 MG PO (09:17)
[2024-12-31] MEDS: ENOXAPARIN 40 MG/0.4 ML SYRINGE SUB-Q (09:17)
--- NOTE | 2024-12-31 09:58 | HOMEO2EVAL ---
Evaluation was performed at [facility] Home Oxygen Evaluation RC: Home Oxygen (O2) Evaluation Start: 12/31/24 09:23 Freq: ONCE Status: Active Protocol: RPE Activity Type Activity Date Activity User E-sign Co-sign Detail Recorded Client Recorded Date Recorded By Document 12/31/24 09:52 DV [id number] 12/31/24 09:57 DV Document 12/31/24 09:57 DV [id number] 12/31/24 09:58 DV 12/31/24 12/31/24 09:52 09:57 Home O2 Evaluation [Oxygen] -Test Phase Resting Exercise -Oxygen Delivery Room Air Room Air [Pulse Oximetry] -Pulse Oximetry (90-100 %) 92 93 [Pulse Rate] -Pulse Rate (60-100 beats/min) 87 108 H [Evaluation] -Activity Tolerance Good -Rating of Perceived Dyspnea (PD) +2 Mild, Some Difficulty, Noticeable to the Observer -Rate of Perceived Exertion (PE) 11 Fairly light Query Text:Click the Protocol Button to View the RPE Scale [Exercise] -Ambulation Distance (feet) 350 -Ambulation Distance (meters) 106.67 [Comments] -Home Oxygen Evaluation Comments Will begin walk Patient on room air. ambulated on room air without any desaturations. Patient tolerated well. [Charges] -Evaluation Charges O2 Evaluation Charge
--- NOTE | 2024-12-31 10:52 | P.DS_ITS ---
DS: Admitting Diagnosis Discharge Date 12/31/2024 Admitting Diagnosis Pneumonia involving right lung Acute respiratory failure with hypoxia Bipolar disorder Hyperlipidemia Hypertension Diabetes DS: Discharge Diagnosis Discharge Diagnosis (1) Pneumonia involving right lung: Qualifiers: Lung location: unspecified part of lung Pneumonia type: due to unspecified organism Qualified Code(s): J18.9 - Pneumonia, unspecified organism Code(s): J18.9 - Pneumonia, unspecified organism Status: Acute (2) Acute respiratory failure with hypoxia: Code(s): J96.01 - Acute respiratory failure with hypoxia Status: Acute (3) Bipolar disorder: Code(s): F31.9 - Bipolar disorder, unspecified Status: Acute (4) Dyslipidemia: Code(s): E78.5 - Hyperlipidemia, unspecified Status: Acute (5) Hypertension: Code(s): I10 - Essential (primary) hypertension Status: Acute (6) Diabetes: Code(s): E11.9 - Type 2 diabetes mellitus without complications Status: Acute DS: Summary Hospital Course Reason for hospitalization: pneumonia Hospital Course: Pneumonia involving right lung CT chest showing right middle and lower lobe pneumonia with leukocytosis, hypoxia and chest congestion * IV ceftriaxone and azithromycin p.o. * incentive spirometer * mucolytics * duo nebs * blood cultures pending * supplemental oxygen, now weaned to room air * discharge home on PO azithromycin x 3 days and PO Cefdinir x 5 days * follow up with PCP in 1-2 weeks after discharge Acute respiratory failure with hypoxia patient with mild hypoxia POA at 91% improved with supplemental oxygen 2 L * supplemental oxygen p.r.n. to maintain 92% * No PE by CTA * Patient has been weaned to room air and is maintaining oxygen saturations > 92% Bipolar disorder * continued patient's Zyprexa and Xanax Hyperlipidemia * continue patient's atorvastatin she takes 60 mg total 1 40 mg tablet and 1 20 mg tablet Hypertension * continue patient's lisinopril Diabetes * Accu-Cheks a.c. HS * will hold patient's metformin during hospitalization, restart on discharge * low-dose SSI * diabetic diet * glycemic protocol Time Spent with Patient Time attestation: Total time spent providing and/or coordinating discharge services: 25 Minutes Exam Const: General: comfortable and no acute distress HENMT: Face/Nose/Sinus: Normal nares present Mouth: Yes moist mucous membranes Eyes: General: appearance normal, both eyes and all related structures Sclera: sclerae normal Neck: Neck: supple Resp: Effort & Inspection: normal respiratory effort Auscultation: clear to auscultation bilaterally Cardio: Rate: regular rate Rhythm: regular rhythm GI: GI Palp: Yes Soft to palpation Auscultation: normal bowel sounds Skin: General skin exam: normal color and no rashes or lesions noted Neuro: General: gait normal Motor exam (neuro): 5/5 motor strength present throughout Sensory Exam: normal sensation Extrem: General: normal to inspection Psych: Mental Status: mental status grossly normal Affect: normal affect DS: Data Data Completed and Pending Labs on day of discharge: Labs from last 24 hours 12/31/24 12/30/24 12/30/24 05:19 21:21 16:40 WBC 14.2 H RBC 4.05 L Hgb 11.4 L Hct 36.3 MCV 89.6 MCH 28.1 MCHC 31.4 L RDW 13.7 Plt Count 319 MPV 9.8 Immature Gran % (Auto) 0.5 H Neut % (Auto) 87.5 H Lymph % (Auto) 8.7 L [place] % (Auto) 3.2 Eos % (Auto) 0.0 L Baso % (Auto) 0.1 Lymph # (Auto) 1.23 [place] # (Auto) 0.45 Eos # (Auto) 0.00 L Baso # (Auto) 0.01 Abs Immat Gran (auto) 0.07 H Absolute Neuts (auto) 12.41 H Absolute Nucleated RBC 0.00 Nucleated RBC % 0.0 Sodium 140 Potassium 4.3 Chloride 102 Carbon Dioxide 27 Anion Gap 11 BUN 14 Creatinine 0.56 L Estim Creat Clear Calc 125 Estimated GFR > 60 Glucose 144 H POC Capillary Glucose 211 H 222 H Calculated Osmolality 293 Calcium 9.5 Magnesium 2.1 Total Bilirubin 0.3 AST 22 ALT 25 Alkaline Phosphatase 126 Total Protein 6.4 Albumin 3.9 Urine Color Urine Appearance Urine pH Ur Specific [place] Urine Protein Urine Glucose (UA) Urine Ketones Ur Blood (Man) Urine Nitrate Urine Bilirubin Urine Urobilinogen Leukocyte Esterase Rfl Urine Opiates Screen Urine Methadone Screen Ur Barbiturates Screen Ur Phencyclidine Scrn Ur Amphetamine Screen U Benzodiazepines Scrn Urine Cocaine Screen U Cannabinoids Screen 12/30/24 12/30/24 12:29 12:28 WBC RBC Hgb Hct MCV MCH MCHC RDW Plt Count MPV Immature Gran % (Auto) Neut % (Auto) Lymph % (Auto) [place] % (Auto) Eos % (Auto) Baso % (Auto) Lymph # (Auto) [place] # (Auto) Eos # (Auto) Baso # (Auto) Abs Immat Gran (auto) Absolute Neuts (auto) Absolute Nucleated RBC Nucleated RBC % Sodium Potassium Chloride Carbon Dioxide Anion Gap BUN Creatinine Estim Creat Clear Calc Estimated GFR Glucose POC Capillary Glucose Calculated Osmolality Calcium Magnesium Total Bilirubin AST ALT Alkaline Phosphatase Total Protein Albumin Urine Color Light yellow Urine Appearance Clear Urine pH 7.0 Ur Specific [place] <= 1.005 L Urine Protein Negative Urine Glucose (UA) Negative Urine Ketones Negative Ur Blood (Man) Negative Urine Nitrate Negative Urine Bilirubin Negative Urine Urobilinogen 1.0 Leukocyte Esterase Rfl Negative Urine Opiates Screen Negative Urine Methadone Screen Negative Ur Barbiturates Screen Negative Ur Phencyclidine Scrn Negative Ur Amphetamine Screen Negative U Benzodiazepines Scrn Positive A Urine Cocaine Screen Negative U Cannabinoids Screen Negative Imaging Radiologist's impression: Ordering Physician: Chiki Ho MD Date of Service: 12/30/24 Procedure(s): XR chest 1V portable Accession Number(s): [id number] cc: Lea, Herb Liang APRN; Chiki Ho MD~ Examination: XR chest 1V portable Clinical History: sob Comparison: 11/24/2024 Technique: Portable AP Findings: Heart size normal. Persistent increased interstitial markings left lung. Increased interstitial markings and/or opacities right lower lobe. No acute bony abnormality. IMPRESSION: 1. Persistent interstitial pulmonary edema and/or pneumonitis. 2. Developing airspace disease right lower lobe. Reviewed, dictated and finalized at location R. [employer]IPMENT MECH[employer] INSTRUCTOR Ordering Physician: Chiki Ho MD Date of Service: 12/30/24 Procedure(s): CTA chest PE protocol Accession Number(s): [id number] cc: Lea, Herb Liang APRN; Chiki Ho MD~ EXAMINATION: CTA chest PE protocol DATE: 12/30/2024 8:53 POWER EQUIPMENT [employer]CH[employer] INSTRUCTOR INDICATION: Elevated d-dimer. Hypoxia. TECHNIQUE: Computed tomographic angiography (CTA) of the chest was performed with 100 mL Omnipaque-350 intravenous contrast. The dose-length product was 775.81 mGy-cm. Maximum intensity projection 3D-reconstructions of the aorta and other arteries were constructed by the technologist on a separate workstation. COMPARISON: CT dated 01/16/2024. FINDINGS: Study is suboptimal due to motion artifact. No large central pulmonary embolism. No significant pleural or pericardial effusion. Small hiatal hernia. No thoracic lymphadenopathy. There is patchy airspace consolidation in the right middle and lower lobe, consistent with pneumonia. No endobronchial lesions. No pneumothorax. No thoracic lymphadenopathy. Status post cholecystectomy. 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 There is levoscoliosis of the thoracic spine. Mild thoracic spondylosis. IMPRESSION: 1. Patchy right middle and lower lobe airspace disease, compatible with pneumonia. 2: No large central pulmonary embolism. Study limited due to motion. Reviewed, dictated and finalized at location O. [employer]IP[employer]CH[employer] INSTRUCTOR Discharge Plan Discharge Attending physician on discharge: Leonel Park Consulting providers: Robina Parks Discharging Clinician: Belkis Braxton Patient Disposition: Home Activity: as tolerated Diet: heart healthy Discharge Instructions: Please complete all antibiotics prescribed to you even if you are feeling better. Please ask your PCP if they would like to repeat a chest x-ray in 2-4 weeks to check for resolution of your pneumonia. If you develop a cough you can take over the counter cough medication including Mucinex or Mucinex DM. Please return to the ER or call your PCP if you develop worsening shortness of breath, chest pain, fever greater than 100.4 degrees, nausea, vomiting, or diarrhea. Patient Instructions: Antibiotic Form, Azithromycin (By mouth), Cefdinir (By mouth), Community Acquired Pneumonia (DC) Patient Language: Guamanian Stand Alone Forms: General Discharge Information Follow-up/Referrals: Lea,Herb Liang, FITTER UP [Primary Care Provider, [facility]] Referral Note: call for an appointment to be seen within 1-2 weeks of discharge. Discharge Medications: New acetaminophen 325 mg Tablet 650 mg PO Q4H PRN (Reason: Mild Pain (1-3) Or Fever) Qty: 30 0RF azithromycin [Zithromax] 250 mg Tablet 500 mg PO DAILY Qty: 3 0RF cefdinir 300 mg capsule 300 mg PO Q12H Qty: 10 0RF Rx Instructions: start on 01/01/2025 in the morning Continued omeprazole magnesium [Prilosec OTC] 20 mg Tablet,Delayed Release (Dr/Ec) 20 mg PO DAILY lisinopril 40 mg tablet 40 mg PO DAILY fluoxetine [Prozac] 40 mg capsule 20 mg PO BID atorvastatin 40 mg tablet 60 mg PO DAILY metformin 500 mg tablet extended release 24 hr 500 mg PO BID topiramate 50 mg tablet 50 mg PO DAILY olanzapine 7.5 mg tablet 7.5 mg PO HS atorvastatin 20 mg tablet 20 mg PO DAILY multivitamin with minerals Tablet 1 tablet PO DAILY albuterol sulfate 90 mcg/actuation HFA aerosol inhaler 2 puff INHALATION Q4H PRN (Reason: Wheezing) Qty: 1 0RF alprazolam 1 mg tablet 1 mg PO BID PRN (Reason: Anxiety) aspirin 81 mg Tablet,Delayed Release (Dr/Ec) 81 mg PO QAM Qty: 30 0RF lidocaine 5 % adhesive patch,medicated 1 patch topical DAILY PRN (Reason: pain) Qty: 15 0RF Rx Instructions: leave on most painful area for up to 12 hrs Date of admission: 12/30/24 09:30 Primary Care Provider: LeaHerb Admitting Provider: Leonel Park Attending physician on admission: Leonel Park Condition: Stable Quality VTE Prophylaxis VTE prophylaxis: pharmacologic ordered
--- NOTE | 2024-12-31 11:50 | PC.NURSE ---
discussed with provider regarding flu vaccination, with pneumonia diagnosis Belkis Braxton feels we should wait, will not order flu vaccine due to current infectious process.
--- NOTE | 2024-12-31 12:55 | PC.NURSE ---
discharge instructions reviewed with patient she stated understanding IV removed patient dressed and wheeled down to private with all belongs with her
--- NOTE | 2025-01-05 10:08 | PC.NURSE ---
Discharge call back completed, doing well, to see PMD on sunday for followup, no questions regarding medications or dc instructions
== END 2024-12-31 12:55 | disposition home or self-care (01) ==
LOC: CHSED 09:06 → CHS2ND 09:37
PROVIDERS: Nurse Practitioner Family; Admitting Provider Internal Medicine; Emergency Provider Emergency Medicine; PCP Nurse Practitioner Family; Visit Provider Internal Medicine
DX: J18.9 Pneumonia, unspecified organism (principal); J96.01 Acute respiratory failure with hypoxia; E11.9 Type 2 diabetes mellitus without complications; I11.0 Hypertensive heart disease with heart failure; I50.9 Heart failure, unspecified; J44.9 Chronic obstructive pulmonary disease, unspecified; E78.5 Hyperlipidemia, unspecified; F31.9 Bipolar disorder, unspecified; F41.8 Other specified anxiety disorders; Z90.710 Acquired absence of both cervix and uterus; Z79.82 Long term (current) use of aspirin; Z79.84 Long term (current) use of oral hypoglycemic drugs; Z90.722 Acquired absence of ovaries, bilateral; Z90.49 Acquired absence of other specified parts of digestive tract; Z87.891 Personal history of nicotine dependence; Z86.711 Personal history of pulmonary embolism; Z86.14 Personal history of Methicillin resistant Staphylococcus aureus infection; Z82.49 Family history of ischemic heart disease and other diseases of the circulatory system; Z83.3 Family history of diabetes mellitus; Z82.61 Family history of arthritis
CPT/HCPCS: 36415; 71045; 71275; 80053; 80307; 81003; 82948; 83690; 83735; 83880; 84484; 85025; 85380; 87040; 93005; 94618; 94640; 96365; 96367; 96372; 96375; 99285; A9270; G0378; G0379; J0456; J0696; J1650; J1815; J2919; J7050; Q9967

== ENCOUNTER 2025-01-13 14:13 | Emergency (ER) | payer OTHER, SELFPAY ==
[2025-01-13] VITALS (11 sets, daily range): BP systolic 101–123; BP diastolic 65–75; PULSE 81–90; RESP 12–20; TEMP 36.7–36.8; O2SAT 95–100
--- NOTE | ~2025-01-13 | XR_ITS ---
EXAMINATION: XR chest 1V portable DATE: 01/13/2025 15:12 INDICATION: Short of breath. TECHNIQUE: A single frontal view of the chest was obtained. COMPARISON: Chest x-ray dated 12/30/2024 FINDINGS: Significant cardiomegaly. No definite acute pulmonary findings. Limited visualization due to large body habitus. IMPRESSION: 1. Limited visualization on portable chest x-ray due to large body habitus. 2. Cardiomegaly. No definite acute pulmonary findings. Reviewed, dictated and finalized at location T. EY ENGINEER
--- NOTE | 2025-01-13 14:52 | ED.SOB ---
HPI - SOB/Dyspnea General Chief Complaint: Shortness of Breath/Dyspnea Stated Complaint: chest pain Time Seen by Provider: 01/13/25 14:48 History of Present Illness HPI Narrative: 59-year-old white female with long history of heavy tobacco use, hypercholesterolemia, hypertension, diabetes, obesity, GERD, COPD, anxiety, reports she was diagnosed a couple weeks ago with pneumonia, was hospitalized for about a day and a half and ended up being treated with Levaquin and is on her last dose today. She reports she is still coughing, still short of breath, still having dyspnea on exertion, still having fatigue, weakness, malaise, and is concerned that her pneumonia is not getting better. She reports she stopped smoking about 7 years ago (EMS reports that they have transported her several times in the past and each time they picked her up she has been in the process of actively smoking who it is not clear how accurate her report of tobacco sensation is) She does use albuterol inhalers and nebulizers. She denies ever having a sleep study recommended, however she does have occasional morning headaches, afternoon fatigue, and does have a relatively easy the time of falling asleep in the recliner in the evenings. She denies any recent high fever, chills, rigors, sinus drainage, sore throat, chest pain, abdominal pain, nausea vomiting, diarrhea constipation, dysuria urgency or frequency, denies pedal edema Related Data Home Medications ?Medication ?Instructions ?Recorded ?Confirmed ?Last Taken ?Type omeprazole magnesium 20 mg 20 mg PO DAILY 04/13/19 12/30/24 11/24/24 History tablet,delayed release (Prilosec OTC) multivitamin with minerals 1 tablet PO DAILY 12/01/21 12/30/24 11/24/24 History lisinopril 40 mg tablet 40 mg PO DAILY 10/31/22 12/30/24 11/24/24 History metformin 500 mg tablet,extended 500 mg PO BID 09/28/23 12/30/24 11/24/24 History release 24 hr topiramate 50 mg tablet 50 mg PO DAILY 09/28/23 12/30/24 11/24/24 History alprazolam 1 mg tablet 1 mg PO BID PRN Anxiety 07/29/24 12/30/24 07/29/24 History atorvastatin 20 mg tablet 20 mg PO DAILY 08/12/24 12/30/2411/24/25 History olanzapine 7.5 mg tablet 7.5 mg PO HS 11/24/24 12/30/24 11/23/24 History fluoxetine 20 mg capsule mg 01/13/25 Unknown History nitroglycerin 0.4 mg sublingual mg 01/13/25 Unknown History tablet nystatin 100,000 unit/gram topical topical 01/13/25 Unknown History powder (Nystop) tiotropium bromide 2.5 inhalation 01/13/25 Unknown History mcg/actuation mist for inhalation (Spiriva Respimat) Allergies Allergy/AdvReac Type Severity Reaction Status Date / Time No Known Allergies Allergy Unknown Verified 01/13/25 14:30 Review of Systems Review of Systems: ROS is negative except in HPI PMFSH Past Medical History Medical History (Updated 01/13/25 @ 16:57 by Keo Simpson MD) Diabetes Pulmonary embolism After cholecystectomy in 1991 Migraines Bipolar disorder Morbid obesity with BMI of 40.0-44.9, adult Necrotizing pneumonia Two thousand twenty-two Insect bite Hx MRSA infection Congestive heart failure Hypertension COPD (chronic obstructive pulmonary disease) Asthma Anxiety Depression Surgical History Surgical History History of hysterectomy for benign disease (2007) History of left oophorectomy (~2007) History of incision and drainage Several areas to left forearm for MRSA 2001 History of cholecystectomy (~1991) History of tubal ligation Family History Family History Father Valvular heart disease Mother , Mother at age 60. Diabetes mellitus Smoker Sibling Rheumatoid arthritis Has RA in her hands, sees regulatory submissions associate. Social History Social History Social History: The patient is but lives with her boyfriend, of 26 years, and her daughter and granddaughter. She has a daughter and a son. Her oldest son She used to binge drink about once a month until she was unconscious but quit drinking alcohol around age 41. She used to smoke crack cocaine from about age 26 to age 41. She reports she started smoking in order to deal with her withdrawal from the other substances and she proceeded to smoke 1.5 packs of cigarettes per day for about 8 years but quit smoking at age 51. She works at [employer] in the [employer]. Code status: Full code Surrogate decision maker: Her son Smoking packs per day: 1.5 Smoking cigarettes per day: 30.0 Years smoked: 8 Smoking pack-years: 12.00 Smoking status: Former smoker Tobacco type: cigarettes Second hand tobacco smoke exposure: Yes Smoking end date: 02/06/16 Additional smoking assessment comments: Began smoking pot as a kid and quit 2018. Began smoking cigarettes after Alcohol intake: former Substance use: former Substance use type: former substance user Other substance usage details: former marijuna user Lack of Transportation: No Lack of Food: Never True Current Housing: I Do Not Have Housing Concerned About Future Housing: No Difficulty Paying Gas/Electric Bills: No Difficulty Paying for Meds: No Currently Unemployed: No Education: High School Diploma/GED Difficulty w/ Childcare or Family Care: No Spiritual care concerns: No ([facility]) Exam Narrative: pleasant, there is a moderately strong tobacco odor, skin changes consistent with longstanding tobacco use, morbid obesity, no acute distress Const: General: cooperative, comfortable, no acute distress, well developed, alert, awake and Physically active Nutritional Appearance: obese Orientation/consciousness: patient oriented x3 HENMT: Head: normal to inspection, normocephalic and atraumatic Ears: hearing grossly normal bilaterally and external ears normal Face/Nose/Sinus: Normal external nose present, Normal nares present, Normal nasal mucous membranes and turbinates present and normal facial exam Face and sinus: normal facial exam Mouth: Yes Normal oral and palatal mucosa present, Yes lip normal, Yes tongue normal, Yes oropharynx normal and Yes moist mucous membranes Teeth and gingiva: dentition normal Throat: posterior oropharynx normal and tonsils normal ( erythematous) Eyes: General: appearance normal, both eyes and all related structures Alignment and Position: alignment normal and position normal Periorbital: periorbital findings normal Eyelids: eyelids normal Conjunctivae: conjunctivae normal Sclera: sclerae normal Cornea: corneas normal Pupils: Equal, round and reactive pupils present EOM: EOMs intact bilaterally Neck: Neck: normal visual inspection, full ROM and no lymphadenopathy Chest: Chest palpation & inspection: normal inspection of the chest Resp: Effort & Inspection: normal respiratory effort, able to speak in complete sentences, audible wheezes (Rare scattered wheeze), no respiratory distress and no use of accessory muscles Auscultation: clear to auscultation bilaterally and rhonchi Other: Coarse rhonchi Cardio: Jugular venous distension: no JVD Rate: regular rate Rhythm: regular rhythm GI: Inspection: normal to inspection GI Palp: No abdominal tenderness, No Tenderness to palpation present (GI), No Guarding due to palpation present (GI), No No hepatosplenomegaly present, No Palpable mass present and No Rebound tenderness present Other: Morbid obesity Skin: General skin exam: normal color, no rashes or lesions noted, elasticity normal and turgor normal Neuro: General: patient oriented x3, gait normal, tone normal and moves all extremities Cranial nerves: Yes CN's II-XII intact bilaterally, Yes Equal, round and reactive pupils present and Yes Bilaterally intact EOM present Speech: normal speech Motor exam (neuro): 5/5 motor strength present throughout and Normal motor muscle tone present throughout Sensory Exam: normal sensation Extrem: General: normal to inspection, normal exam except as noted and no pedal edema Psych: Appearance: grossly normal and well kempt Mental Status: mental status grossly normal Speech and movement: Normal speech and movement present Affect: normal affect Attitude: cooperative Thought process: Normal thought process present Course Course Emergency Course: Differential diagnosis includes was not limited to residual pneumonia, recurrent URI, recurrent bronchitis, pneumonia, COPD, suspect active tobacco use, COVID, influenza, CHF, ACS Workup shows an H&H of 12.338.9 and white count of 8.6 all of which were normal D-dimer is normal for age at 0.52. CMP is normal, urine is unremarkable, 3:30 p.m. influenza and COVID are pending Chest x-ray shows cardiomegaly but no evidence of active pneumonia, no evidence of CHF EKG shows sinus rhythm, normal axis, somewhat low voltage, nonspecific ST T-wave abnormalities, possibly old anterior injury Patient is receiving an hour long 10 mg albuterol treatment, Atrovent, Solu-Medrol, magnesium is low normal at 1.8, will go ahead and give her 2 g of magnesium. She was not discharged with her pneumonia on steroids, will go ahead and give her a course of steroids for discharge, will have her increase her in a nebulizer to every 3 or 4 hours, have given a strong recommendation to have no smoke exposure at all including secondhand smoke Workup is reassuring, anticipate good response to steroids, will need follow-up with her PCP in 1 week Medical decision making complexity and risk moderate to high Vital Signs Vital signs: Vital Signs Temperature 36.8 C 01/13/25 14:24 Pulse Rate 90 01/13/25 14:24 Respiratory Rate 16 01/13/25 14:24 Blood Pressure 123/75 01/13/25 14:24 Pulse Oximetry 97 01/13/25 14:24 Oxygen Delivery Room Air 01/13/25 14:24 Temperature 36.7 C 01/13/25 16:42 Pulse Rate 87 01/13/25 16:42 Respiratory Rate 18 01/13/25 16:42 Blood Pressure 112/65 01/13/25 16:42 Pulse Oximetry 97 01/13/25 16:42 Oxygen Delivery Room Air 01/13/25 16:42 MDM Differential Diagnosis Differential Diagnosis: Differential diagnosis is in ED course Lab Data 01/13/25 14:59 01/13/25 14:59 Labs: Lab Results 01/13/25 01/13/25 Range/Units 14:54 14:59 WBC 8.6 (4.8-10.8) K/mm3 RBC 4.34 (4.20-5.40) M/mm3 Hgb 12.3 (12.0-15.0) g/dL Hct 38.9 (35.0-49.0) % MCV 89.6 (78.0-102.0) fL MCH 28.3 (27.0-31.0) pg MCHC 31.6 L (32-36) g/dL RDW 13.6 (11.6-14.4) % Plt Count 314 (150-420) K/mm3 MPV 9.6 (9.2-11.8) fl Immature Gran % (Auto) 0.2 H (0.0-0.0) % Neut % (Auto) 70.1 H (50.0-70.0) % Lymph % (Auto) 21.9 (18.0-42.0) % Saunders % (Auto) 5.7 (2.0-11.0) % Eos % (Auto) 1.9 (1.0-6.0) % Baso % (Auto) 0.2 (0.0-1.0) % Lymph # (Auto) 1.89 (1.10-4.50) K/mm3 Saunders # (Auto) 0.49 (0.10-0.90) K/mm3 Eos # (Auto) 0.16 (0.02-0.50) K/mm3 Baso # (Auto) 0.02 (0.00-0.10) K/mm3 Abs Immat Gran (auto) 0.02 H (0.00-0.00) K/mm3 Absolute Neuts (auto) 6.06 (1.70-7.20) K/mm3 Absolute Nucleated RBC 0.00 (0.00-0.00) K/mm3 Nucleated RBC % 0.0 (0-0.0) % PT 10.2 (9.50-12.1) Seconds INR 0.9 D-Dimer 0.52 H (0.19-0.50) mg/L Sodium 141 (137-145) mmol/L Potassium 3.7 (3.4-5.0) mmol/L Chloride 104 (98-107) mmol/L Carbon Dioxide 25 (22-30) mmol/L Anion Gap 12 (4-12) mmol/L BUN 9 D (7-17) mg/dL Creatinine 0.56 L (0.7-1.0) mg/dL Estim Creat Clear Calc 126 ml/min Estimated GFR > 60 (59 - ) Glucose 116 H (65-110) mg/dL Calculated Osmolality 291 (285-295) mOsm/kg Calcium 9.5 (8.4-10.2) mg/dL Magnesium 1.8 (1.6-2.3) mg/dL Total Bilirubin 0.2 (0.2-1.3) mg/dL AST 25 (14-36) U/L ALT 30 (6-35) U/L Alkaline Phosphatase 145 H (38-126) U/L Troponin I < 0.012 (0.000-0.034) ng/mL NT-Pro-B Natriuret Pep < 20 (19.9-100) pg/mL Total Protein 7.1 (6.3-8.2) g/dL Albumin 4.3 (3.5-5.1) g/dL Urine Color Light yellow (Yellow) Urine Appearance Clear (Clear) Urine pH 6.0 (5.0-8.0) Ur Specific [place] <= 1.005 L (1.010-1.020) Urine Protein Negative (Negative) Urine Glucose (UA) Negative (Negative) Urine Ketones Negative (Negative) Ur Blood (Man) Negative (Negative) Urine Nitrate Negative (Negative) Urine Bilirubin Negative (Negative) Urine Urobilinogen 0.2 (0.2-1.0) mg/dL Leukocyte Esterase Rfl Negative (Negative) ANDREE/UL Influenza A (RT-PCR) Negative (Negative) Influenza B (RT-PCR) Negative (Negative) Imaging Data Radiologist's impression: ITS Impressions Chest X-Ray 01/13/25 15:16 IMPRESSION: 1. Limited visualization on portable chest x-ray due to large body habitus. 2. Cardiomegaly. No definite acute pulmonary findings. Discharge Plan Discharge Clinical Impression: Exposure to second hand smoke COPD (chronic obstructive pulmonary disease) Qualifiers: COPD type: COPD with acute exacerbation Qualified Code(s): J44.1 - Chronic obstructive pulmonary disease with (acute) exacerbation Patient Disposition: Home Condition: Stable Instructions: Antibiotic Form, COPD (Chronic Obstructive Pulmonary Disease) (ED), Secondhand Smoke Exposure in Children (ED) Additional Instructions: You may increase the frequency of your nebulizer albuterol treatments to every 3 or 4 hours Air out the house, clean all clothing, draperies,, carpeting, etcetera to get rid of embedded cigarette smoke Return to the emergency department if worsens Talk with your PCP about getting a sleep study for obstructive sleep apnea Patient Language: French Prescriptions: New prednisone 10 mg tablet See Taper PO DAILY 15 Days Qty: 45 0RF Taper: Prednisone Taper from 50 mg;15 days 50 mg DAILY for 3 Days and 0 Hour 40 mg DAILY for 3 Days and 0 Hour 30 mg DAILY for 3 Days and 0 Hour 20 mg DAILY for 3 Days and 0 Hour 10 mg DAILY for 3 Days and 0 Hour magnesium chloride [Mag-Delay] 64 mg tablet,delayed release (DR/EC) 64 mg PO DAILY Qty: 30 5RF No Action omeprazole magnesium [Prilosec OTC] 20 mg Tablet,Delayed Release (Dr/Ec) 20 mg PO DAILY lisinopril 40 mg tablet 40 mg PO DAILY metformin 500 mg tablet extended release 24 hr 500 mg PO BID topiramate 50 mg tablet 50 mg PO DAILY olanzapine 7.5 mg tablet 7.5 mg PO HS cefdinir 300 mg capsule 300 mg PO Q12H Qty: 10 0RF Rx Instructions: start on 01/01/2025 in the morning nitroglycerin 0.4 mg tablet, sublingual nystatin [Nystop] 100,000 unit/gram powder TOPICAL fluoxetine 20 mg capsule Spiriva Respimat 2.5 mcg/actuation mist INHALATION atorvastatin 20 mg tablet 20 mg PO DAILY multivitamin with minerals Tablet 1 tablet PO DAILY albuterol sulfate 90 mcg/actuation HFA aerosol inhaler 2 puff INHALATION Q4H PRN (Reason: Wheezing) Qty: 1 0RF alprazolam 1 mg tablet 1 mg PO BID PRN (Reason: Anxiety) aspirin 81 mg Tablet,Delayed Release (Dr/Ec) 81 mg PO QAM Qty: 30 0RF Follow-up/Referrals: Lea,Herb Liang NP [Primary Care Provider, Family Practice]
[2025-01-13 14:59] LABS: Add Urine Microscopic? NO; Appearance Urine Clear (Clear); Glucose Urine UA Negative (Negative); Leukocyte Esterase Ur Negative LEU/UL (Negative); Nitrate Urine Negative (Negative); Specific Grav Ur <= 1.005 (1.010-1.020)
[2025-01-13 15:04] LABS: Hematocrit 38.9 % (35.0-49.0); Hemoglobin 12.3 g/dL (12.0-15.0); Immature Granulocyte Percent A 0.2 % (0.0-0.0); Lymphocytes Absolute Auto 1.89 K/mm3 (1.10-4.50); Mean Corpuscular HGB Conc 31.6 g/dL (32-36); Mean Corpuscular Hemoglobin 28.3 pg (27.0-31.0); Mean Corpuscular Volume 89.6 fL (78.0-102.0); Nucleated Red Blood Cells Absolute Auto 0.00 K/mm3 (0.00-0.00); Nucleated Red Blood Cells Perc 0.0 % (0-0.0); Platelet Count Result 314 K/mm3 (150-420); Red Blood Count 4.34 M/mm3 (4.20-5.40); White Blood Count 8.6 K/mm3 (4.8-10.8)
[2025-01-13] MEDS: ALBUTEROL SULFATE NEB 2.5 MG/3 ML INH 10 MG INHALATION (15:10)
[2025-01-13] MEDS: IPRATROPIUM BR 0.02% INH SOLN 0.5 MG/2.5 ML VIAL INHALATION (15:10)
[2025-01-13 15:16] LABS: Alanine Aminotransferase 30 U/L (6-35); Albumin Level 4.3 g/dL (3.5-5.1); Alkaline Phosphatase 145 U/L (38-126); Anion Gap 12 mmol/L (4-12); Aspartate Amino Transferase 25 U/L (14-36); Bilirubin,Total 0.2 mg/dL (0.2-1.3); Blood Urea Nitrogen 9 mg/dL (7-17); Calcium 9.5 mg/dL (8.4-10.2); Carbon Dioxide 25 mmol/L (22-30); Chloride 104 mmol/L (98-107); Estimated CRCL calculation 126 ml/min; Estimated Glomerular Filt Rate > 60; Glucose 116 mg/dL (65-110); Magnesium 1.8 mg/dL (1.6-2.3); Osmolality Calculated 291 mOsm/kg (285-295); Potassium 3.7 mmol/L (3.4-5.0); Sodium 141 mmol/L (137-145); Total Protein 7.1 g/dL (6.3-8.2)
[2025-01-13 15:17] LABS: INR 0.9; Prothrombin Time 10.2 Seconds (9.50-12.1)
--- NOTE | 2025-01-13 15:17 | PC.NURSE ---
Respiratory at bedside for breathing treatment.
[2025-01-13 15:28] LABS: NT Pro B Type Natriuretic Pept < 20 pg/mL (19.9-100); Troponin I < 0.012 ng/mL (0.000-0.034)
[2025-01-13 15:39] LABS: Influenza A QL RT-PCR Negative (Negative); Influenza B QL RT-PCR Negative (Negative)
--- OUTSIDE RECORDS SUMMARY | 2025-01-13 16:16 | XMS_ITS | Encounter Summary ---
Author Organization [facility] Address [facility] [place] [address] Care Team Providers Care Undercollar Maker Name Role Phone Rhianna Shepard Primary Care Provider [phone] Encounter Details Date Type Department Care Team (Late st Contact Info) Description 07/13/2018 Abstract [facility] CONVERSION [address] [place] [address] , Generic Conversion, Social History Tobacco Use [...] on filedocumented in this encounter Care Teams Undercollar Maker Relationship Specialty Start Date End Date Rhianna Shepard PA [address] [place] [address] PCP - General PHYSICIAN [employer] FIBRE DRAWER 11/18/19 documented as of this encounter
--- OUTSIDE RECORDS SUMMARY | 2025-01-13 16:16 | XMS_ITS | Clinical Summary ---
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
--- OUTSIDE RECORDS SUMMARY | 2025-01-13 16:16 | XMS_ITS ---
Author Organization Unknown Address [place], [place] [id number] Phone Care Team Providers Care Manual Writer Name Role Phone ORQUIDEA HERRERA Attending Unavailable [...] LEVEL - Collect Peter e/Time: 11/01/2024 22:06 [facility] ID: [id number] [place] [address], [id number] LOINC: 06199-1 Test Value Unit Reference Range Code Code System Flag TROPONIN < 0.012 ng/mL L=0.000 H=0.033 04606-0 LOINC 4 PLEX RESPIRATORY COVID FLU RSV PCR - Collect Date/Time: 11/01/2024 18:13 [facility] ID: [id number] [place] [address], [phone] LOINC: 52365-7 Test Value Unit Reference Range Code Code System Flag SARS CoV2 PCR NEGATIVE 12269-9 LOINC FLU A PCR NEGATIVE FLU B PCR NEGATIVE RSV PCR NEGATIVE SEND TO [facility]? NO URINALYSIS w/Microscopy/C&S if indicated - Collect Date/Time: 11/01/2024 17:48 [facility] ID: [id number] [place], [place], [id number] LOINC: 10847-7 Test Value Unit Reference Range Code Code System Flag UR SOURCE VOIDED 96718-7 LOINC COLOR YELLOW YELLOW 5778-6 LOINC CLARITY SL CLOUDY CLEAR 25937-3 LOINC SPEC GRAVITY <=1.005 1.000-1.030 5811-5 LOINC PH 6.0 5.0 - 6.5 5803-2 LOINC LEUK EST 1+ NEGATIVE 5799-2 LOINC A NITRATE NEGATIVE NEGATIVE PROTEIN NEGATIVE NEGATIVE 5804-0 LOINC GLUCOSE NEGATIVE NEGATIVE 83955-2 LOINC KETONES NEGATIVE NEGATIVE 55900-8 LOINC UROBILINOGEN 0.2 0.2 - 1.0 5818-0 LOINC BILIRUBIN NEGATIVE NEGATIVE 23502-0 LOINC BLOOD NEGATIVE NEGATIVE 31753-9 LOINC WBC 5-10 0 - 2 38484-0 LOINC A RBC 0-2 0 - 2 14918-8 LOINC SQ EPITHELIAL MODERATE RARE-FEW BACTERIA NONE SEEN NONE SEEN 11981-2 LOINC MUCUS NONE SEEN NONE SEEN 8247-9 LOINC YEAST NOT PRESENT NOT PRESENT 72811-3 LOINC TRICHOMONAS NOT PRESENT NOT PRESENT 53319-7 LOINC SPERMATOZOA NOT PRESENT NOT PRESENT 00197-9 LOINC CASTS NOT PRESENT 72299-1 LOINC CRYSTALS NOT PRESENT 92902-5 LOINC CULTURE? NO 8251-1 LOINC DIAGNOSIS N/A URINE DRUG SCREEN 12 PANEL R APID - Collect Date/Time: 11/01/2024 17:48 [facility] ID: [id number] [place], [place], [phone] LOINC: Test Value Unit Reference Range Code Code System Flag THC NEGATIVE PCP NEGATIVE COCAINE NEGATIVE 14729-0 LOINC METHAMPHETAMINES NEGATIVE OPIATES POSITIVE A AMPHETAMINES NEGATIVE 05238-8 LOINC BENZO POSITIVE 08252-0 LOINC A TCA NEGATIVE METHADONE NEGATIVE BARBITUATES NEGATIVE OXYCODONE NEGATIVE FENTANYL NEGATIVE CBC W/ DIFF - Collect Date/T ellen: 11/01/2024 17:33 [facility] ID: [id number] [address] [place], [place], [id number] LOINC: 74508-1 Test Value Unit Reference Range Code Code System Flag WBC 7.3 10^3uL L=4.0 H=10.5 RBC 4.09 10^6uL L=4.20 H=5.40 L HEMOGLOBIN 11.6 g/dL L=12.0 H=16.0 718-7 LOINC L HEMATOCRIT 36.2 VOL% L=37.0 H=47.0 4544-3 LOINC L MCV 88.5 fL L=81.0 H=99.0 MCH 28.4 pg L=27.0 H=32.0 MCHC 32.0 g/dL L=32.0 H=36.0 PLATELETS 291 10^3uL L=100 H=400 21395-8 LOINC RDW 13.4 % L=11.7 H=15.5 %GRAN 59.8 % L=40.0 H=70.0 42210-8 LOINC %LYMPH 30.1 % L=20.0 H=45.0 736-9 LOINC %MONO 6.7 % L=2.0 H=10.0 14060-7 LOINC %EOS 3.0 % L=0.0 H=6.0 713-8 LOINC %BASO 0.3 % L=0.0 H=3.0 706-2 LOINC #NEUT 4.4 10^3uL L=1.9 H=7.6 98252-7 LOINC #LYMPH 2.2 10^3uL L=0.9 H=4.9 06223-9 LOINC #MONO 0.5 10^3uL L=0.1 H=0.9 11212-9 LOINC #EOS 0.2 10^3uL L=0.0 H=0.6 712-0 LOINC #BASO 0.02 10^3uL L=0.00 H=0.10 09767-6 LOINC #IM GRANS 0.0 10^3uL L=0.0 H=7.0 32733-7 LOINC %IM GRANS 0.1 % L=0.0 H=5.0 69574-8 LOINC %NRB 0.0 L=0.0 H=0.2 48553-0 LOINC #NRB 0.000 L=0.000 H=0.012 30141-9 LOINC MANUAL DIFF NOT INDICATED RBC MORPH NOT INDICATED MAGNESIUM - Collect Date/Adrian e: 11/01/2024 17:33 [facility] ID: [id number] [address] [place] [address], [phone] LOINC: 78365-6 Test Value Unit Reference Range Code Code System Flag MAGNESIUM 1.8 mg/dL L=1.6 H=2.3 03124-8 LOINC CPK - Collect Date/Time: 17:33 [facility] ID: [id number] [address] [place] [address], [phone] LOINC: 2157-6 Test Value Unit Reference Range Code Code System Flag CPK 90 U/L L=30 H=170 7-6 LOINC LACTIC ACID - Collect Date/T ellen: 11/01/2024 17:33 [facility] ID: [id number] [address] [place] [address], [phone] LOINC: 69742-8 Test Value Unit Reference Range Code Code System Flag LACTIC ACID 1.3 mmol/L L=0.7 H=2.6 43548-4 LOINC AMYLASE - Collect Date/Time: 11/01/2024 17:33 [facility] ID: [id number] [address] [place] [address], [id number] LOINC: 1798-8 Test Value Unit Reference Range Code Code System Flag AMYLASE 53 U/L L=30 H=110 1798-8 LOINC LIPASE - Collect Date/Time: 11/01/2024 17:33 [facility] ID: [id number] [address] [place] [address], [id number] LOINC: 3040-3 Test Value Unit Reference Range Code Code System Flag LIPASE 63 U/L L=23 H=300 3040-3 LOINC PROTIME - Collect Date/Time: 11/01/2024 17:33 [facility] ID: [id number] [address] [place] [address], [id number] LOINC: 73035-6 Test Value Unit Reference Range Code Code System Flag PT 9.7 Sec L=9.6 H=11.5 85588-2 LOINC INR 0.9 Sec L=0.9 H=1.1 70383-6 LOINC D DIMER - Collect Date/Time: 11/01/2024 17:33 [facility] ID: [id number] [address] [place] [address], [phone] LOINC: Test Value Unit Reference Range Code Code System Flag DDIMER 0.44 mg/L FEU L=0.00 H=0.50 PRO BNP - Collect Date/Time: 11/01/2024 17:33 [facility] ID: [id number] [address] [place] [address], [id number] LOINC: 99455-2 Test Value Unit Reference Range Code Code System Flag Pro BNP2 30 pg/mL L=0 H=900 96455-6 LOINC COMPREHENSIVE METABOLIC PANE L - Collect Date/Time: 11/01/2024 17:33 [facility] ID: [id number] [place], [place], [phone] LOINC: 17198-1 Test Value Unit Reference Range Code Code [...] 2028-9 LOINC ANION GAP 10 L=10 H=20 56497-2 LOINC OSMOLALITY 289 mOs/kG L=280 H=296 53795-9 LOINC BUN/CREAT 18.3 3097-3 LOINC CALCIUM 9.1 mg/dL L=8.3 H=10.5 65777-6 LOINC AST 29 U/L L=15 H=46 1920-8 LOINC ALT 25 U/L L=9 H=72 1742-6 LOINC ALKALINE PHOS 109 U/L L=38 H=126 6768-6 LOINC TOTAL BILI 0.3 mg/dL L=0.2 H=1.3 1975-2 LOINC ALBUMIN 4.0 G/dL L=3.5 H=5.0 1751-7 LOINC TOTAL PROTEIN 6.6 g/L L=6.3 H=8.2 2885-2 LOINC A/G RATIO 1.5 93156-4 LOINC AGE 59 67925-5 LOINC eGFR NON-AFR 109 ml/min eGFR AFR AMER 132 ml/min TROPONIN LEVEL - Collect Peter e/Time: 11/01/2024 17:33 [facility] ID: [id number] [place], [place], [id number] LOINC: 48089-7 Test Value Unit Reference Range Code Code System Flag TROPONIN < 0.012 ng/mL L=0.000 H=0.033 41455-8 LOINC CHEST 1V - Completed: 2024 18:32 LOINC: \TM00\\12PI\\DRAo\\BM09\ \MRHo\ [id number] [place] [address] ---------NAME--------- NUMBER SEX AGE ADMIT DISC. XRAY# F/C TYPE EMILIANO LYNN STERLING [id number] F 59 11/01/24 90327 XB7 E.R. DATE OF : 1965 M/R# [id number] #: [id number] ED[facility] LOCATION: TRANSCRIBED: 11/01/24 19:19 CHEST 1V 70623 COMPLETED:11/01/24 18:32 [facility] [address] Chest Pain PHYSICIAN: ORQUIDEA Maya R A [...] congestion and/or viral pneumonia. Clinical correlation advised. MECHANIC \ITLo\ \UNDo\ \UNDx\ \ITLx\ Reviewed and Electronically Signed by: Scout Mcclellan MD Signed Date: 11/01/24 19:19 CHEST 2V - Completed: 2024 21:39 LOINC: \TM00\\12PI\\DRAo\\BM09\ \MRHo\ [address] [address] ---------NAME--------- NUMBER SEX AGE ADMIT DISC. XRAY# F/C TYPE EMILIANO STERLING [id number] F 59 11/01/24 62168 XB7 E.R. DATE OF : 1965 M/R# [id number] #: [id number] ED-31 \[facility]\ LOCATION: TRANSCRIBED: 11/01/24 21:40 CHEST 2V 66396 COMPLETED:11/01/24 21:39 MRP [id number] Chest Pain PHYSICIAN: ORQUIDEA Maya R A D I O L O G Y R E P O R T CHEST 2V INDICATION: Chest Pain TECHNIQUE: Two views of the chest COMPARISON: CHEST 1V on DOS: 11/01/24 FINDINGS/IMPRESSION: LUNGS: No pleural effusion, consolidation, or pneumothorax. Peripheral interstitial edema. MEDIASTINUM: Unremarkable BONES: No acute osseous abnormality OTHER: None MECHANIC \ITLo\ \UNDo\ \UNDx\ \ITLx\ Reviewed and Electronically Signed by: DCTFE WINN Signed Date: SIGNDATE US VENOUS LEFT LE - Complete d: 11/01/2024 19:13 LOINC: 72720-6 \TM00\\12PI\\DRAo\\BM09\ \MRHo\ [address] [address] ---------NAME--------- NUMBER SEX AGE ADMIT DISC. XRAY# F/C TYPE EMILIANO LYNN STERLING [id number] F 59 11/01/24 13589 XB7 E.R. DATE OF : 1965 M/R# [id number] #: [id number] ED-31 \[facility]\ LOCATION: TRANSCRIBED: 11/01/24 19:16 [place] [address] COMPLETED:11/01/24 19:13 MRP [id number] LEG SWELLING;Chest Pain PHYSICIAN: ORQUIDEA Maya R [...] THROMBOSIS IN THE LEFT LOWER EXTREMITY VEINS. MECHANIC \ITLo\ \UNDo\ \UNDx\ \ITLx\ Reviewed and Electronically Signed by: Scout Mcclellan MD Signed Date: 11/01/24 19:16 Social History Type Status Start Date End Date Code Code Syst em Smoking History Current every day smoker [id number] SNOMED CT Sex Female Hospital Discharge Instructions Should you have any questions prior to discharge, please contact a member of your healthcare team. If you have left the hospital and have any questions, please contact your primary care physician. Reason For Referral No Data Found Allergies and Adverse Reactions Allergy Substance Reaction Severity Start Date Concern Status Co de Code System CYCLOBENZAPRINE Active 49540 RxNorm PENICILLIN Active Plan of Treatment No Data Found Encounters Encounter Diagnosis Start Date Code Code Sys tem Other chest pain 11/01/2024 SNOMED-CT Personal Care Team Section Performer Name Performer Role Active Date Inactive Rohan Vicente PCP - Primary care physician 2024-01-04 2024-01-04 Imaging Narrative Notes [facility] 11/01/2024 19:[address] [address] ---------NAME--------- NUMBER SEX AGE ADMIT DISC. XRAY# F/C TYPE EMILIANO STERLING [id number] F 59 11/01/24 45431 XB7 E.R. DATE OF : 1965 M/R# [id number] #: [id number] ED-31 LOCATION: TRANSCRIBED: 11/01/24 19:19 CHEST 1V 77933 COMPLETED:11/01/24 18:32 MRP [id number] Chest Pain PHYSICIAN: ORQUIDEA Maya RADIOLOGY REPORT CHEST RADIOGRAPH Indication: Chest Pain Technique: Single frontal view of the chest was obtained COMPARISON: None FINDINGS: Lines and Tubes: None Lungs: Congestion Pleura: No effusion. No pneumothorax. Cardiomediastinal contours: Unremarkable Bones: Unremarkable IMPRESSION: Increased interstital prominence. This may represent pulmonary vascular congestion and/or viral pneumonia. Clinical correlation advised. MECHANIC Reviewed and Electronically Signed by: Scout Mcclellan MD Signed Date: 11/01/24 19:19 [facility] 11/01/2024 21:[address] [address] ---------NAME--------- NUMBER SEX AGE ADMIT DISC. XRAY# F/C TYPE EMILIANO STERLING [id number] F 59 11/01/24 11490 XB7 E.R. DATE OF : 1965 M/R# [id number] #: [id number] ED-31 LOCATION: TRANSCRIBED: 11/01/24 21:40 CHEST 2V 14940 COMPLETED:11/01/24 21:39 MRP [id number] Chest Pain PHYSICIAN: ORQUIDEA G RADIOLOGY REPORT CHEST 2V INDICATION: Chest Pain TECHNIQUE: Two views of the chest COMPARISON: CHEST 1V on DOS: 11/01/24 FINDINGS/IMPRESSION: LUNGS: No pleural effusion, consolidation, or pneumothorax. Peripheral interstitial edema. MEDIASTINUM: Unremarkable BONES: No acute osseous abnormality OTHER: None MECHANIC Reviewed and Electronically Signed by: KHRIS WINN Signed Date: SIGNDATE [facility] 11/01/2024 19:19 [facility] [address] [place] [address] ---------NAME--------- NUMBER SEX AGE ADMIT DISC. XRAY# F/C TYPE EMILIANO STERLING [id number] F 59 11/01/24 81496 XB7 E.R. DATE OF : 1965 M/R# [id number] #: [id number] ED-31 LOCATION: TRANSCRIBED: 11/01/24 19:16 [place] [address] COMPLETED:11/01/24 19:13 [facility] [address] LEG SWELLING;Chest Pain PHYSICIAN: ORQUIDEA G RADIOLOGY [...] THROMBOSIS IN THE LEFT LOWER EXTREMITY VEINS. MECHANIC Reviewed and Electronically Signed by: Scout Mcclellan MD Signed Date: 11/01/24 19:16
--- OUTSIDE RECORDS SUMMARY | 2025-01-13 16:16 | XMS_ITS | Clinical Summary ---
Author Organization [facility] Address [address] [place] [address] Care Team Providers Care Poiser Name Role Phone Herb Tate DIRECTOR OF CONTRACTS-MANAGER ENT Primary Care Provider [phone] Source Comments [facility],non[facility] Affiliates and Associated Physician Practices is amultiple site organization consisting of ambulatory clinics and hospital sitesin [place], [place], [place] and [place]. This disclosure is being madepursuant to the Care Everywhere program and may not contain all information available regarding this patient. Last updated 17.[facility] Allergies Active Allergy Reactions Criticality Noted Date [...] as needed for pain 5 Active Klayesta 383449 UNIT/GM powder APPLY 1 APPLICATION TOPICALLY TWICE DAILY FOR 7 DAYS Active nystatin (Mycostatin) 030903 UNIT/GM cream APPLY TOPICALLY TO THE AFFECTED [...] for Angina 100 tablet 3 5 Active atorvastatin (Lipitor) 20 MG tablet Active OLANZapine (ZyPREXA) 7.5 MG tablet Active Active Problems Problem Noted Date Diagnosed Date History of TIA (transient ischemic attack) 12/31 PFO (patent foramen ovale) 11/28/2024 Dyspnea on exertion 11/28/2024 Right sided weakness 11/15/2024 Dysarthria 11/15/2024 Acute respiratory insufficiency 11/15/2024 Electrolyte imbalance 11/15/2024 Numbness and tingling of both legs 11/15/2024 Weakness 11/14/2024 Cerebrovascular accident (CVA), unspecified [facility] 11/14/2024 Encounters Date Type Department Care Team Description 01/05/2025 Orders Only [facility] - Cardiac Cad Designer [address] [place] [phone] Sussy Kaur MD Stable angina ; ALLEN (dyspnea on exertion); Mixed hyperlipidemia; History of tobacco use; Type 2 diabetes mellitus without complication, without long-term current use of insulin ([facility]) 12/31/2024 4:40 PM ECHOMETER ENGINEER Video Visit [facility] - Cardiology [address] [address] Sussy Kaur MD PFO (patent foramen ovale) ([facility]) ; Cerebrovascular accident (CVA), unspecified mechanism ([facility]) 12/31/2024 Orders Only [facility] - Cardiac Cad Designer [address] [place] [phone] Sussy Kaur MD PFO (patent foramen ovale) ([facility]) ; History of TIA (transient ischemic attack) 12/19/2024 6:35 AM ECHOMETER ENGINEER - 12/19/2024 11:59 PM ECHOMETER ENGINEER Hospital Encounter [facility] - Cardiac Cad Designer [address] [place] [phone] Sussy Kaur MD Discharge Disposition: Home or Self Care 12/19/2024 Travel 12/08/2024 Transcribe Orders [facility] - Centralized Scheduling [address] [place] [address] Herb Tate, DIRECTOR OF CONTRACTS-MANAGER ENT Transient neurological symptoms 11/28/2024 10:00 AM CDT Office Visit [facility] - Cardiology [address] [facility] [place] [address] Sussy Kaur MD Cerebrovascular accident (CVA), unspecified mechanism (HCC) (Primary Dx) 11/28/2024 Travel 11/25/2024 Travel 11/14/2024 7:37 PM CDT - 11/16/2024 5:57 PM CDT Hospital Encounter [facility] [address] [place] [phone] Dustin Singh MD Edgell, Randall C, MD [...] and heating? Not hard at all 11/15/2024 [place] [place] [facility] - Occupational Stress [...] any time in the past 12 m [facility], were you homeless or living in a prison (including now)? No 11/15/2024 Comments No Sex and Gender Information Value Date Recorded Sex Assigned at Not on file Legal Sex Female 5:58 PM ECHOMETER ENGINEER Gender Identity Not on file Sexual Orientation Not on file Last Filed Vital Signs Vital Sign Reading Time Taken Comments Blood Pressure 109/59 12/19/2024 10:45 AM ECHOMETER ENGINEER Pulse 74 12/19/2024 10:45 AM ECHOMETER ENGINEER Temperature 36.4 C (97.6 F) 12/19/2024 10:12 AM ECHOMETER ENGINEER Respiratory Rate 13 12/19/2024 10:45 AM ECHOMETER ENGINEER Oxygen Saturation 95% 12/19/2024 10:45 AM ECHOMETER ENGINEER Inhaled Oxygen Concentration - - Weight 122.5 kg (270 lb) 12/31/2024 8:17 AM ECHOMETER ENGINEER Height 167.6 cm (5' 6) 12/31/2024 8:17 AM ECHOMETER ENGINEER Body Mass Index 43.58 12/31/2024 8:17 AM ECHOMETER ENGINEER Plan of Treatment Upcoming Encounters Date Type Department Care Team (Latest Contact Info) Description 01/26/2025 9:40 AM ECHOMETER ENGINEER Hospital Encounter [facility] [address] [place] [address] Sussy Kaur MD [address] [place] [address] Cardiac Catheterization 01/26/2025 9:40 AM ECHOMETER ENGINEER - 01/26/2025 11:34 AM ECHOMETER ENGINEER Surgery [facility] - Cardiac Cad Designer [address] [place] [address] Sussy Kaur MD [address] [facility] [place] [address] Patent Foramen Ovale (PFO) Closure 02/09/2025 11:00 AM ECHOMETER ENGINEER Appointment [facility] CAT SCAN [address] [place] [address] Eveline Roland APRN-MANAGER ENT [address] [address] 03/06/2025 9:20 AM ECHOMETER ENGINEER Office Visit [facility] - Cardiology [address] [facility], [facility] [address] [place] [phone] Sussy Kaur MD [address] [address] Health Maintenance Due Date Last Done Comments [...] 2016 MAMMOGRAM 11/17/2021 11/18/2019, 11/18/2019 COVID-19 VACCINE ( season) 2024 01/09/2024, 02/09/2021, 06/29/2020, Additional [...] MARY COMPLETE Routine 12/19/2024 10: 06 AM ECHOMETER ENGINEER Cerebrovascular accident (CVA), unspecified mechanism (HCC) GLUCOSE - POINT OF CARE Routine 12/19/2024 8:01 AM ECHOMETER ENGINEER CBC W/O DIFFERENTIAL Routine 12/19/2024 7:55 AM ECHOMETER ENGINEER Cerebrovascular accident (CVA), unspecified mechanism (HCC) BASIC METABOLIC PANEL (CALCIUM TOTAL) Routine 12/19/2024 7:55 AM ECHOMETER ENGINEER Cerebrovascular accident (CVA), unspecified mechanism (HCC) GLUCOSE [...] * ECHO MARY COMPLETE (12/19/2024 10:06 AM ECHOMETER ENGINEER) TR pk ja 244 cm/s [facility] Cardize PACS Anatomical Region Laterality Modality Ultrasound 12/19/2024 9:09 AM ECHOMETER ENGINEER Narrative 12/25/2024 11:33 AM ECHOMETER ENGINEER Summary * Left ventricular systolic function is [...] 9:09 AM Patient Status: O/P Study Site: [facility] Primary Location: [facility] EStudy Info Exam Type: ECHO MARY COMPLETE Indications I63.9 - Cerebrovascular accident (CVA), unspecified mechanism (HCC) * A complete transesophageal echo was performed using 2D, color Doppler, and spectral Doppler. Staff Referring Physician: Sussy Kaur Ordering Provider: Sussy Kaur Attending Physician: Sussy Kaur Fellow: Breonna Perez Supervisor Dyer: Fior Franz Performing Physician: Edward Mcguire Complications [...] in satisfactory condition. Probe passed by the [place] consultant without difficulty. Left Ventricle The left ventricle [...] 9:09 AM Patient Status: O/P Study Site: [facility] Primary Location: [facility] EStudy Info Exam Type: ECHO MARY COMPLETE Indications I63.9 - Cerebrovascular accident (CVA), unspecified mechanism (HCC) * A complete transesophageal echo was performed using 2D, color Doppler,and spectral Doppler. Staff Referring Physician: Sussy Kaur Ordering Provider: Sussy Kaur Attending Physician: Sussy Kaur Fellow: Breonna Perez Supervisor Dyer: Fior Franz Performing Physician: Edward Mcguire Complications [...] Fellow Breonna Perez on 12/19/2024 11:04 AM Sussy Kaur MD ECHO CUPID Final Resul t * (ABNORMAL) GLUCOSE - POINT OF CARE (12/19/2024 8:01 AM [facility]) Only the most recent of7 resultswithin the time period is included. Glucose WB/POC 102(H) 70 - 99 mg/dL 12/19/2024 8:06 AM [facility] Specimen Type Venous 12/19/2024 8:06 AM [facility] Blood BLOOD SPECIMEN / Unknown 12/19/2024 8:01 AM ECHOMETER ENGINEER 12/19/2024 8:06 AM [facility] Sussy Kaur MD LAB - POINT OF CARE ORDERAB LES Final Result [facility] [address] [place] [address], [facility] [phone] * CBC W/O DIFFERENTIAL (12/19/2024 7:55 AM ECHOMETER ENGINEER) Only the most recent of3 resultswithin the time period is included. [facility] WBC 7.5 4.0 - 10.7 x10E9/L 12/19/2024 8:13 AM [facility] RBC Count 4.44 3.90 - 5.20 x10E12/L 12/19/2024 8:13 AM [facility] Hemoglobin 12.6 11.9 - 15.8 g/dL 12/19/2024 8:13 AM [facility] Hematocrit 38.3 34.8 - 46.1 % 12/19/2024 8:13 AM [facility] MCV 86.3 80.0 - 98.0 fL 12/19/2024 8:13 AM [facility] MCH 28.4 26.7 - 33.6 pg 12/19/2024 8:13 AM [facility] MCHC 32.9 31.7 - 36.3 g/dL 12/19/2024 8:13 AM [facility] RDW-CV 13.7 11.3 - 14.8 % 12/19/2024 8:13 AM [facility] Platelet Count 320 150 - 420 x10E9/L 12/19/2024 8:13 AM [facility] MPV 9.6 7.8 - 11.4 fL 12/19/2024 8:13 AM [facility] Blood BLOOD SPECIMEN / Unknown Venipuncture / Unknown 12/19/2024 7:55 AM ECHOMETER ENGINEER 12/19/2024 8:10 AM [facility] us Sussy Kaur MD LAB - HEMATOLOGY ORDERABLES Final Result [address] [address], [facility] [phone] * (ABNORMAL) BASIC METABOLIC PANEL (CALCIUM TOTAL) (12/19/2024 7:55 AM ECHOMETER ENGINEER) Only the most recent of3 resultswithin the time period is included. [facility] BUN 13 7 - 26 mg/dL 12/19/2024 8:43 AM [facility] Creatinine 0.50(L) 0.56 - 0.96 mg/dL 12/19/2024 8:43 AM [facility] Sodium 140 136 - 145 mmol/L 12/19/2024 8:43 AM [facility] Potassium 4.2 3.5 - 4.5 mmol/L 12/19/2024 8:43 AM [facility] Chloride 107 98 - 107 mmol/L 12/19/2024 8:43 AM [facility] CO2 25 22 - 29 mmol/L 12/19/2024 8:43 AM [facility] Glucose 94 70 - 99 mg/dL 12/19/2024 8:43 AM [facility] Calcium 9.2 8.4 - 10.2 mg/dL 12/19/2024 8:43 AM [facility] Anion Gap 8 6 - 16 12/19/2024 8:43 AM [facility] BUN/Creatinine Ratio 26(H) 7 - 23 12/19/2024 8:43 AM [facility] Osmolality Calculated 290 275 - 295 mOsm/kg 12/19/2024 8:43 AM [facility] eGFR by CKD-EPI >90 >=90 mL/min/1.7 3 m2 12/19/2024 8:43 AM [facility] Comment:Estimated Glomerular Filtration Rate (eGFR) calculated using the CKD-EPI Creatinine Equation (2020), per the National Kidney Foundation and Scottish Society of Nephrology recommendations. Blood BLOOD SPECIMEN / Unknown Venipuncture / Unknown 12/19/2024 7:55 AM ECHOMETER ENGINEER 12/19/2024 8:10 AM [facility] us Sussy Kaur MD LAB - CHEMISTRY ORDERABLES Final Result [facility] [address] [place] [address], [facility] [phone] * HEMOGLOBIN A1C (11/16/2024 4:45 AM CDT) Only the most recent of2 resultswithin the time period is included. Hemoglobin A1c 5.6 <=5.6 % 11/16/2024 8:51 AM CDT [facility] Estimated Average Glucose 114 mg/dL 11/16/2024 8:51 AM CDT [facility] Comment: HbA1c Interpretation: Normal : < 5.7% Pre-diabetes: 5.7-6.4% Diabetes: Equal to or greater than 6.5% Test results diagnostic of diabetes should be repeated for confirmation. Treatment target values recommended by ADA and other clinical organizations should be used to evaluate metabolic control in patients. Reference: [place] Diabetes Association, Standards of Care in Diabetes -2020 In patients 70 years and older consider HbA1c target range of 7.0-7.5% (Reference: Ko Escoto et al. JAMDA. 2012) The Sebia assay for the measurement of HbA1c is a National Glycohemoglobin Standardization Program (NGSP) certified method. Blood BLOOD SPECIMEN / Unknown Venipuncture / Unknown 11/16/2024 4:45 AM CDT 11/16/2024 5:20 AM CDT Jose Hill DIRECTOR OF CONTRACTS-MANAGER ENT LAB - CHEMISTRY ORDERABLE S Final Result [facility] [address] [place] [address], [facility] [phone] * CT HEAD NON CONTRAST (11/15/2024 5:08 PM CDT) Anatomical Region Laterality Modality Head Computed Tomogra phy 11/15/2024 7:27 PM CDT Impressions 11/15/2024 8:38 PM CDT IMPRESSION: 1.No acute intracranial hemorrhage, midline shift, or significant mass effect. Report was dictated by Jamison Camp MD, ([facility] resident) 11/15/2024 7:27 PM > Dictated by Jamison Camp MD 11/15/2024 7:27 PM > Dictated by Scarrer I, Ana Laura Mahan MD have personally reviewed and interpreted this examination/study. > Interpreting Provider: Ana Laura Mahan MD on 11/15/2024 8:38 PM Narrative 11/15/2024 8:38 PM CDT PROCEDURE: CT HEAD WO CONTRAST, DATE/TIME OF EXAM: 11/15/2024 5:09 PM, LOCATION [facility] INDICATION: I63.9: Cerebrovascular accident (CVA), unspecified mechanism [...] DATE/TIME OF EXAM: 11/15/2024 5:09 PM, LOCATION [facility] INDICATION: I63.9: Cerebrovascular accident (CVA), unspecified mechanism [...] MD 11/15/2024 7:27 PM > Dictated by Scarrer IAna Laura MD have personally reviewed and [...] LVOT pk grad 3.637 mmHg [facility] pk ja 95.356 cm/s [facility] CV F [facility] PACS LVOT VTI 19.431 cm [facility] CV [facility] I PACS RV-dow basal diam 2.745 cm [facility] CV [facility] PACS RVIDd 3.357 cm [facility] CV [facility] I PACS RVOT diam Doppler 1.999 cm SS M CV [facility] RVOT pk ja 87.224 cm/s [facility] CV F [facility] PACS RVOT VTI 16.789 cm [facility] CV [facility] I PACS LA size 4.129 cm [facility] CV [facility] I PACS LA vol BP 46.15 ml [facility] CV [facility] I PACS RA area 10.25 cm [facility] CV [facility] PACS AV area pk ja 2.95 cm [facility] AV area cont VTI 3.027 cm [facility] AV pk grad 6.844 mmHg [facility] CV [facility]U JI PACS AV mn grad 3.358 mmHg [facility] CV [facility] PACS AV pk ja 130.805 cm/s [facility] CV [facility] I PACS AV VTI 25.982 cm [facility] CV [facility] I PACS MV A pk ja 73.419 cm/s [facility] CV F [facility] PACS MV E pk ja 83.948 cm/s [facility] CV F [facility] PACS MV E' lateral ja 5.922 cm/s SS M [facility] MV mn grad 0.801 mmHg [facility] CV FU JI PACS MV VTI 20.203 cm [facility] CV [facility] I PACS PV pk ja 99.299 cm/s [facility] CV [facility] I PACS PV VTI 16.439 cm [facility] CV [facility] I PACS TAPSE 1.91 cm [facility] CV [facility] I PACS Ascending aorta 3.435 cm [facility] IVC Diam Expiration 1.644 cm [facility] Sinus of Valsalva 2.6 cm SS [...] 10:02 AM Patient Status: I/P Study Site: [facility] Primary Location: [facility] EStudy Info Technical Quality: Technically Difficult Exam [...] Provider: Dustin Singh Attending Physician: Dustin Singh Supervisor Dyer: Candelario Enriquez Left Ventricle The left ventricle [...] 10:02 AM Patient Status: I/P Study Site: [facility] Primary Location: [facility] Info Technical Quality: Technically Difficult Exam Type: ECHO COMPLETE W CONTRAST W BUBBLE STUDY Indications I63.9 - Cerebrovascular accident (CVA), unspecified mechanism (HCC) Procedure(s) * A complete 2D, color Doppler, spectral Doppler, and M-Modetransthoracic echocardiogram was performed. Contrast/Agitated Saline Contrast / Saline: Definity Amount: 1.00 ml Administered By: Candelario Erniquez Reaction to Contrast: no Contrast / Saline: Agitated Saline Amount: 10.00 ml Reaction to Contrast: no Reason for Technically Difficult Study: body habitus, poor acoustic windows, lung interference Staff Referring Physician: Dustin Singh Ordering Provider: Dustin Singh Attending Physician: Dustin Singh Supervisor Dyer: Candelario Enriquez Left Ventricle The left ventricle [...] Sensitive <3 <=14 ng/L 11/15/2024 12:07 AM [facility] Delta Troponin I HS 11/15/2024 12:07 AM [facility] Comment:Delta value intentio sandor not calculated. Baseline to 1 hour specimen collection interval exceeded. Blood BLOOD SPECIMEN / Unknown Venipuncture / Unknown 11/14/2024 11:10 PM CDT 11/14/2024 11:33 PM CDT us Dustin Singh MD LAB - CHEMISTRY ORDERABLES Final Result [facility] [address] [place] [address], [facility] [phone] * LIPID PROFILE (11/14/2024 11:10 PM CDT) Pathologist [facility] Cholesterol Total 138 <200 mg/dL 11/15/2024 12:02 AM [facility] HDL 48 >40 mg/dL 11/15/2024 12:02 AM [facility] Comment: ATP III Classification of HDL Cholesterol: <40 mg/dL: Considered a major risk factor. >60 mg/dL: Considered a negative risk factor. LDL Calculated 72 <100 mg/dL 11/15/2024 12:02 AM [facility] Comment: ATP III Classification of LDL Cholesterol: <100 mg/dL: Optimal 100 - 129 mg/dL: Near Optimal/Above Optimal 130 - 159 mg/dL: Borderline High 160 - 189 mg/dL: High >190 mg/dL: Very High LDL is calculated using the Friedewald equation. Triglycerides 88 <150 mg/dL 11/15/2024 12:02 AM [facility] Comment: ATP III Classification of Triglycerides: <150 mg/dL: Normal 150 - 199 mg/dL: Borderline High 200 - 400 mg/dL: High >500 mg/dL: Very High Blood BLOOD SPECIMEN / Unknown Venipuncture / Unknown 11/14/2024 11:10 PM CDT 11/14/2024 11:33 PM CDT us Dustin Singh MD LAB - CHEMISTRY ORDERABLES Final Result [address] [address], [place] [phone] * TROPONIN-I HIGH SENSITIVE BASELINE + 1HR (11/14/2024 9:27 PM CDT) Troponin I High Sensitive <3 <=14 ng/L 11/14/2024 10:44 PM CDT [facility] Blood BLOOD SPECIMEN / Unknown Venipuncture / Unknown 11/14/2024 9:27 PM CDT 11/14/2024 10:04 PM CDT Dustin Singh MD LAB - CHEMISTRY ORDERABLES Final Result Performing Organization Address City/[facility]/ZIP Co de Phone Number [address] [address], [place] [phone] * XR CHEST 1VW PORTABLE (11/14/2024 8:37 [...] TROPONIN-I HIGH SENSITIVE (11/14/2024 8:14 PM CDT) [facility] Troponin I High Sensitive <3 <=14 ng/L 11/14/2024 8:56 PM CDT [facility] Blood BLOOD SPECIMEN / Unknown Venipuncture / Unknown 11/14/2024 8:14 PM CDT 11/14/2024 8:20 PM CDT Result [facility] Ayden Alba MD LAB - CHEMISTRY ORDERABLES F inal Result [address] [address], [facility] [phone] * PTT (11/14/2024 8:14 PM CDT) [facility] APTT 29.6 23.0 - 38.4 Seconds 11/14/2024 8:44 PM CDT [facility] Comment:Suggested therapeuti c range for full dose I.V. unfractionated heparin therapy for venous thromboembolism is 71 to 109 seconds. Blood BLOOD SPECIMEN / Unknown Venipuncture / Unknown 11/14/2024 8:14 PM CDT 11/14/2024 8:20 PM CDT Result [facility] Ayden Alba MD LAB - COAGULATION ORDERABLES Final Result Performing Organization Address City/[facility]/ZIP Co de Phone Number [address] [address], [facility] [phone] * PT-INR (11/14/2024 8:14 PM CDT) [facility] PT 12.6 12.1 - 14.8 Seconds 11/14/2024 8:44 PM [facility] INR 1.0 See Comment 11/14/2024 8:44 PM [facility] Comment:The suggested therap eutic range for standard coumadin (warfarin) therapy is an INR of 2.0-3.0. For high-risk patients (Mechanical Mitral Valve Prosthesis, etc.), the suggested prophylactic therapeutic range is an INR of 2.5-3.5. Blood BLOOD SPECIMEN / Unknown Venipuncture / Unknown 11/14/2024 8:14 PM CDT 11/14/2024 8:20 PM CDT us Ayden Alba MD LAB - COAGULATION ORDERABLES Final Result [facility] [address] [place] [address], [facility] [phone] * CBC W AUTO DIFFERENTIAL (11/14/2024 8:14 PM CDT) Pathologist [facility] WBC 7.4 4.0 - 10.7 x10E9/L 11/14/2024 8:28 PM [facility] RBC Count 4.34 3.90 - 5.20 x10E12/L 11/14/2024 8:28 PM [facility] Hemoglobin 12.5 11.9 - 15.8 g/dL 11/14/2024 8:28 PM [facility] Hematocrit 37.9 34.8 - 46.1 % 11/14/2024 8:28 PM [facility] MCV 87.3 80.0 - 98.0 fL 11/14/2024 8:28 PM [facility] MCH 28.8 26.7 - 33.6 pg 11/14/2024 8:28 PM [facility] MCHC 33.0 31.7 - 36.3 g/dL 11/14/2024 8:28 PM [facility] RDW-CV 13.6 11.3 - 14.8 % 11/14/2024 8:28 PM CDT [facility] Platelet Count 282 150 - 420 x10E9/L 11/14/2024 8:28 PM [facility] MPV 10.1 7.8 - 11.4 fL 11/14/2024 8:28 PM [facility] Neutrophil % 66.5 41.0 - 74.0 % 11/14/2024 8:28 PM [facility] Lymphocyte % 24.7 17.0 - 47.0 % 11/14/2024 8:28 PM [facility] Monocyte % 5.4 3.0 - 11.0 % 11/14/2024 8:28 PM [facility] Eosinophil % 3.0 0.0 - 7.0 % 11/14/2024 8:28 PM [facility] Basophil % 0.1 0.0 - 1.6 % 11/14/2024 8:28 PM [facility] Immature Granulocytes % 0.3 0.0 - 1.0 % 11/14/2024 8:28 PM [facility] Neutrophil Absolute 4.89 1.60 - 7.50 x10E9/L 11/14/2024 8:28 PM [facility] Lymphocyte Absolute 1.82 1.00 - 4.40 x10E9/L 11/14/2024 8:28 PM [facility] Monocyte Absolute 0.40 0.15 - 1.00 x10E9/L 11/14/2024 8:28 PM [facility] Eosinophil Absolute 0.22 0.00 - 0.60 x10E9/L 11/14/2024 8:28 PM [facility] Basophil Absolute 0.01 0.00 - 0.13 x10E9/L 11/14/2024 8:28 PM [facility] Blood BLOOD SPECIMEN / Unknown Venipuncture / Unknown 11/14/2024 8:14 PM CDT 11/14/2024 8:20 PM [facility] us Ayden Alba MD LAB - HEMATOLOGY ORDERABLES Final Result [facility] [address] [place] [address] [phone] * (ABNORMAL) COMPREHENSIVE METABOLIC PANEL (11/14/2024 8:14 PM [facility]) [facility] Signature BUN 8 7 - 26 mg/dL 11/14/2024 8:52 PM [facility] Creatinine 0.55(L) 0.56 - 0.96 mg/dL 11/14/2024 8:52 PM [facility] Sodium 140 136 - 145 mmol/L 11/14/2024 8:52 PM [facility] Potassium 3.7 3.5 - 4.5 mmol/L 11/14/2024 8:52 PM [facility] Chloride 108(H) 98 - 107 mmol/L 11/14/2024 8:52 PM [facility] CO2 25 22 - 29 mmol/L 11/14/2024 8:52 PM [facility] Glucose 105(H) 70 - 99 mg/dL 11/14/2024 8:52 PM [facility] Calcium 9.3 8.4 - 10.2 mg/dL 11/14/2024 8:52 PM [facility] Protein Total 6.7 6.0 - 8.3 g/dL 11/14/2024 8:52 PM [facility] Albumin 3.7 3.4 - 5.0 g/dL 11/14/2024 8:52 PM [facility] Bilirubin Total 0.3 0.2 - 1.2 mg/dL 11/14/2024 8:52 PM [facility] Alkaline Phosphatase 150 40 - 150 U/L 11/14/2024 8:52 PM [facility] ALT 23 5 - 55 U/L 11/14/2024 8:52 PM [facility] AST 17 5 - 34 U/L 11/14/2024 8:52 PM [facility] Anion Gap 7 6 - 16 11/14/2024 8:52 PM [facility] BUN/Creatinine Ratio 15 7 - 23 11/14/2024 8:52 PM [facility] Osmolality Calculated 289 275 - 295 mOsm/kg 11/14/2024 8:52 PM [facility] Albumin/Globulin Ratio 1.2 1.1 - 2.3 11/14/2024 8:52 PM CDT [facility] eGFR by CKD-EPI >90 >=90 mL/min/1.7 3 m2 11/14/2024 8:52 PM CDT [facility] Comment:Estimated Glomerular Filtration Rate (eGFR) calculated using the CKD-EPI Creatinine Equation (2020), per the National Kidney Foundation and [place] Society of Nephrology recommendations. Blood BLOOD SPECIMEN / Unknown Venipuncture / Unknown 11/14/2024 8:14 PM CDT 11/14/2024 8:20 PM CDT us Ayden Alba MD LAB - CHEMISTRY ORDERABLES F inal Result [facility] [address] [place] [address], [facility] [phone] * CT ANGIO BRAIN NECK STROKE (11/14/2024 [...] DATE/TIME OF EXAM: 11/14/2024 8:04 PM, LOCATION [facility] INDICATION: R53.1: Weakness ADDITIONAL CLINICAL INFORMATION: Ordering [...] STROKE, DATE/TIME OF EXAM: :04 PM, LOCATION [facility] INDICATION: R53.1: Weakness ADDITIONAL CLINICAL INFORMATION: Ordering [...] without significant focal stenosis. 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 The remaining right [...] DATE/TIME OF EXAM: 11/14/2024 7:45 PM, LOCATION [facility] INDICATION: R53.1: Weakness EXAMINATION: Computed tomography (CT) [...] DATE/TIME OF EXAM: 11/14/2024 7:45 PM, LOCATION [facility] INDICATION: R53.1: Weakness EXAMINATION: Computed tomography (CT) [...] Laura Mahan MD on 11/14/2024 7:57 PM us Ayden Alba MD CT ORDERABLES Final Result from Last 3 Months Insurance [facility] Advance Directives * Full Code (Latest Code Status on File) Date Activated Date Inactivated Comments 11/14/2024 8:18 PM 11/16/2024 7:33 PM Care Teams Poiser Relationship Specialty Start Date End Date Herb Tate, DIRECTOR OF CONTRACTS-MANAGER ENT [address] [place] [address] PCP - General Nurse Practitioner 11/14/24
--- OUTSIDE RECORDS SUMMARY | 2025-01-13 16:16 | XMS_ITS | Clinical Summary ---
Author Organization [facility] Address On license of [facility] [place] [address] Care Team Providers Care General Operations Agent Name Role Phone Rhianna Shepard Primary Care Provider [phone] Allergies Active Allergy Reactions Criticality Noted Date [...] Most Recently Relevant to Health Maintenance [place] [address] Care Teams General Operations Agent Relationship Specialty Start Date End Date Rhianna Shepard PA [address] [place] [address] PCP - General PHYSICIAN TEST ENGINEERING TECHNICIAN 11/18/19
--- OUTSIDE RECORDS SUMMARY | 2025-01-13 16:16 | XMS_ITS | Clinical Summary ---
Author Organization [facility] Address [address] [facility] [place] [address] Phone Care Team Providers Care Cashier Associate Name Role Phone Rhianna Shepard EVA Primary [...] Combined Discontinued 01/09/2024 Human Papillomavirus (HPV) Immunization (No Doses Required) Completed Meningococcal Immunization (ACWY) Aged Out No longer eligible based on patient's age to complete this topic Rotavirus Immunization Aged Out No lo nger eligible based on patient's age to complete this topic Insurance MEDICAID [employer] Care Teams Cashier Associate Relationship Specialty Start Date End Date Rhianna Shepard PAC [address] [place] [address] PCP - General Advanced Practice Nurse 07/02/23
--- NOTE | 2025-01-13 17:06 | ECG_ITS ---
Test Date: 2025-01-13 14:26:32 Measurements Intervals [place] Rate: 86 P: 42 MD: 144 QRS: 23 QRSD: 96 T: 61 QT: 369 QTc: 443 Interpretive Statements SINUS RHYTHM LOW QRS VOLTAGE IN PRECORDIAL LEADS BORDERLINE R WAVE PROGRESSION, ANTERIOR LEADS BORDERLINE ECG Compared to ECG 12/30/2024 07:01:23 HEART RATE HAS DECREASED Electronically Signed On 01-13-2025 18:58:50 FITTER UP by Jeffery Flores D.O.
--- OUTSIDE RECORDS SUMMARY | 2025-01-13 17:40 | XMS_ITS | Clinical Summary ---
Author Organization [facility] Address [address] [facility] [place] [address] Phone Care Team Providers Care Day Care Center Director Name Role Phone Rhianna Shepard EVA Primary [...] Insurance MEDICAID [employer] Care Teams Day Care Center Director Relationship Specialty Start Date End Date Rhianna Shepard PAC [address] [place] [address] PCP - General Advanced Practice Nurse 07/02/23
--- OUTSIDE RECORDS SUMMARY | 2025-01-13 17:41 | XMS_ITS | Clinical Summary ---
Author Organization [facility] Address Formerly [facility] [place] [address] Care Team Providers Care Dehydrogenation Supervisor Name Role Phone Rhianna Shepard Primary Care Provider [phone] Allergies Active Allergy Reactions Criticality Noted Date [...] Most Recently Relevant to Health Maintenance [place] [address] [place] [address] Care Teams Dehydrogenation Supervisor Relationship Specialty Start Date End Date Rhianna Shepard PA [address] [place] [address] PCP - General PHYSICIAN HOGSHEAD HOOPER 11/18/19
--- OUTSIDE RECORDS SUMMARY | 2025-01-13 17:41 | XMS_ITS ---
Author Organization Unknown Address [address] [place], [place] [id number] Phone Care Team Providers Care Telephone Sales Agent Name Role Phone ORQUIDEA HERRERA Attending Unavailable [...] LEVEL - Collect Peter e/Time: 11/01/2024 22:06 [facility] ID: [id number] [place] [address], [phone] LOINC: 25677-4 Test Value Unit Reference Range Code Code System Flag TROPONIN < 0.012 ng/mL L=0.000 H=0.033 64248-0 LOINC 4 PLEX RESPIRATORY COVID FLU RSV PCR - Collect Date/Time: 11/01/2024 18:13 [facility] ID: [id number] [address] [place] [address], [phone] LOINC: 46623-3 Test Value Unit Reference Range Code Code System Flag SARS CoV2 PCR NEGATIVE 95210-9 LOINC FLU A PCR NEGATIVE FLU B PCR NEGATIVE RSV PCR NEGATIVE SEND TO [facility]? NO URINALYSIS w/Microscopy/C&S if indicated - Collect Date/Time: 11/01/2024 17:48 [facility] ID: [id number] [place], [place], [phone] LOINC: 56858-5 Test Value Unit Reference Range Code Code System Flag UR SOURCE VOIDED 62717-1 LOINC COLOR YELLOW YELLOW 5778-6 LOINC CLARITY SL CLOUDY CLEAR 70894-0 LOINC SPEC GRAVITY <=1.005 1.000-1.030 5811-5 LOINC PH 6.0 5.0 - 6.5 5803-2 LOINC LEUK EST 1+ NEGATIVE 5799-2 LOINC A NITRATE NEGATIVE NEGATIVE PROTEIN NEGATIVE NEGATIVE 5804-0 LOINC GLUCOSE NEGATIVE NEGATIVE 69905-9 LOINC KETONES NEGATIVE NEGATIVE 48270-8 LOINC UROBILINOGEN 0.2 0.2 - 1.0 5818-0 LOINC BILIRUBIN NEGATIVE NEGATIVE 34419-6 LOINC BLOOD NEGATIVE NEGATIVE 84375-0 LOINC WBC 5-10 0 - 2 71789-6 LOINC A RBC 0-2 0 - 2 38433-0 LOINC SQ EPITHELIAL MODERATE RARE-FEW BACTERIA NONE SEEN NONE SEEN 06756-0 LOINC MUCUS NONE SEEN NONE SEEN 8247-9 LOINC YEAST NOT PRESENT NOT PRESENT 47361-7 LOINC TRICHOMONAS NOT PRESENT NOT PRESENT 54534-1 LOINC SPERMATOZOA NOT PRESENT NOT PRESENT 11941-1 LOINC CASTS NOT PRESENT 01033-0 LOINC CRYSTALS NOT PRESENT 43614-4 LOINC CULTURE? NO 8251-1 LOINC DIAGNOSIS N/A URINE DRUG SCREEN 12 PANEL R APID - Collect Date/Time: 11/01/2024 17:48 [facility] ID: [id number] [place], [place], [phone] LOINC: Test Value Unit Reference Range Code Code System Flag THC NEGATIVE PCP NEGATIVE COCAINE NEGATIVE 28606-2 LOINC METHAMPHETAMINES NEGATIVE OPIATES POSITIVE A AMPHETAMINES NEGATIVE 38919-4 LOINC BENZO POSITIVE 66612-6 LOINC A TCA NEGATIVE METHADONE NEGATIVE BARBITUATES NEGATIVE OXYCODONE NEGATIVE FENTANYL NEGATIVE CBC W/ DIFF - Collect Date/T ellen: 11/01/2024 17:33 [facility] ID: [id number] [address] [place], [place], [phone] LOINC: 19944-5 Test Value Unit Reference Range Code Code System Flag WBC 7.3 10^3uL L=4.0 H=10.5 RBC 4.09 10^6uL L=4.20 H=5.40 L HEMOGLOBIN 11.6 g/dL L=12.0 H=16.0 718-7 LOINC L HEMATOCRIT 36.2 VOL% L=37.0 H=47.0 4544-3 LOINC L MCV 88.5 fL L=81.0 H=99.0 MCH 28.4 pg L=27.0 H=32.0 MCHC 32.0 g/dL L=32.0 H=36.0 PLATELETS 291 10^3uL L=100 H=400 51460-1 LOINC RDW 13.4 % L=11.7 H=15.5 %GRAN 59.8 % L=40.0 H=70.0 30195-7 LOINC %LYMPH 30.1 % L=20.0 H=45.0 736-9 LOINC %MONO 6.7 % L=2.0 H=10.0 28525-3 LOINC %EOS 3.0 % L=0.0 H=6.0 713-8 LOINC %BASO 0.3 % L=0.0 H=3.0 706-2 LOINC #NEUT 4.4 10^3uL L=1.9 H=7.6 93463-1 LOINC #LYMPH 2.2 10^3uL L=0.9 H=4.9 59234-4 LOINC #MONO 0.5 10^3uL L=0.1 H=0.9 08340-7 LOINC #EOS 0.2 10^3uL L=0.0 H=0.6 712-0 LOINC #BASO 0.02 10^3uL L=0.00 H=0.10 15746-4 LOINC #IM GRANS 0.0 10^3uL L=0.0 H=7.0 48632-0 LOINC %IM GRANS 0.1 % L=0.0 H=5.0 38200-3 LOINC %NRB 0.0 L=0.0 H=0.2 26109-8 LOINC #NRB 0.000 L=0.000 H=0.012 98264-7 LOINC MANUAL DIFF NOT INDICATED RBC MORPH NOT INDICATED MAGNESIUM - Collect Date/Adrian e: 11/01/2024 17:33 [facility] ID: [id number] [address] [place] [address], [phone] LOINC: 36817-1 Test Value Unit Reference Range Code Code System Flag MAGNESIUM 1.8 mg/dL L=1.6 H=2.3 87125-5 LOINC CPK - Collect Date/Time: 17:33 [facility] ID: [id number] [address] [place] [address], [phone] LOINC: 2157-6 Test Value Unit Reference Range Code Code System Flag CPK 90 U/L L=30 H=170 7-6 LOINC LACTIC ACID - Collect Date/T ellen: 11/01/2024 17:33 [facility] ID: [id number] [address] [place] [address], [phone] LOINC: 83239-6 Test Value Unit Reference Range Code Code System Flag LACTIC ACID 1.3 mmol/L L=0.7 H=2.6 89816-2 LOINC AMYLASE - Collect Date/Time: 11/01/2024 17:33 [facility] ID: [id number] [address] [place] [address], [id number] LOINC: 1798-8 Test Value Unit Reference Range Code Code System Flag AMYLASE 53 U/L L=30 H=110 1798-8 LOINC LIPASE - Collect Date/Time: 11/01/2024 17:33 [facility] ID: [id number] [address] [place] [address], [phone] LOINC: 3040-3 Test Value Unit Reference Range Code Code System Flag LIPASE 63 U/L L=23 H=300 3040-3 LOINC PROTIME - Collect Date/Time: 11/01/2024 17:33 [facility] ID: [id number] [address] [place] [address], [phone] LOINC: 31857-7 Test Value Unit Reference Range Code Code System Flag PT 9.7 Sec L=9.6 H=11.5 84803-4 LOINC INR 0.9 Sec L=0.9 H=1.1 12031-1 LOINC D DIMER - Collect Date/Time: 11/01/2024 17:33 [facility] ID: [id number] [address] [place] [address], [phone] LOINC: Test Value Unit Reference Range Code Code System Flag DDIMER 0.44 mg/L FEU L=0.00 H=0.50 PRO BNP - Collect Date/Time: 11/01/2024 17:33 [facility] ID: [id number] [address] [place] [address], [phone] LOINC: 23444-4 Test Value Unit Reference Range Code Code System Flag Pro BNP2 30 pg/mL L=0 H=900 15937-4 LOINC COMPREHENSIVE METABOLIC PANE L - Collect Date/Time: 11/01/2024 17:33 [facility] ID: [id number] [address] [place], [place], [phone] LOINC: 67181-1 Test Value Unit Reference Range Code Code [...] 2028-9 LOINC ANION GAP 10 L=10 H=20 53360-0 LOINC OSMOLALITY 289 mOs/kG L=280 H=296 38915-7 LOINC BUN/CREAT 18.3 3097-3 LOINC CALCIUM 9.1 mg/dL L=8.3 H=10.5 64229-8 LOINC AST 29 U/L L=15 H=46 1920-8 LOINC ALT 25 U/L L=9 H=72 1742-6 LOINC ALKALINE PHOS 109 U/L L=38 H=126 6768-6 LOINC TOTAL BILI 0.3 mg/dL L=0.2 H=1.3 1975-2 LOINC ALBUMIN 4.0 G/dL L=3.5 H=5.0 1751-7 LOINC TOTAL PROTEIN 6.6 g/L L=6.3 H=8.2 2885-2 LOINC A/G RATIO 1.5 68837-3 LOINC AGE 59 82112-5 LOINC eGFR NON-AFR 109 ml/min eGFR AFR AMER 132 ml/min TROPONIN LEVEL - Collect Peter e/Time: 11/01/2024 17:33 [facility] ID: [id number] [place], [place], [phone] LOINC: 71271-7 Test Value Unit Reference Range Code Code System Flag TROPONIN < 0.012 ng/mL L=0.000 H=0.033 89564-0 LOINC CHEST 1V - Completed: 2024 18:32 LOINC: \TM00\\12PI\\DRAo\\BM09\ \MRHo\ [address] [address] ---------NAME--------- NUMBER SEX AGE ADMIT DISC. XRAY# F/C TYPE EMILAINO LYNN STERLING [id number] F 59 11/01/24 99183 XB7 E.R. DATE OF : 1965 M/R# [id number] #: [id number] ED-31 \[facility]\ LOCATION: TRANSCRIBED: 11/01/24 19:19 CHEST 1V 05409 COMPLETED:11/01/24 18:32 [facility] [address]238 Chest Pain PHYSICIAN: ORQUIDEA Maya R A [...] congestion and/or viral pneumonia. Clinical correlation advised. PRINTER \ITLo\ \UNDo\ \UNDx\ \ITLx\ Reviewed and Electronically Signed by: Scout Mcclellan MD Signed Date: 11/01/24 19:19 CHEST 2V - Completed: 2024 21:39 LOINC: \TM00\\12PI\\DRAo\\BM09\ \MRHo\ [address] [address] ---------NAME--------- NUMBER SEX AGE ADMIT DISC. XRAY# F/C TYPE EMILIANO LYNN STERLING [id number] F 59 11/01/24 83885 XB7 E.R. DATE OF : 1965 M/R# [id number] #: [id number] ED-31 \[facility]\ LOCATION: TRANSCRIBED: 11/01/24 21:40 CHEST 2V 25299 COMPLETED:11/01/24 21:39 MRP [id number] Chest Pain PHYSICIAN: ORQUIDEA Maya R A D I O L O G Y R E P O R T CHEST 2V INDICATION: Chest Pain TECHNIQUE: Two views of the chest COMPARISON: CHEST 1V on DOS: 11/01/24 FINDINGS/IMPRESSION: LUNGS: No pleural effusion, consolidation, or pneumothorax. Peripheral interstitial edema. MEDIASTINUM: Unremarkable BONES: No acute osseous abnormality OTHER: None PRINTER \ITLo\ \UNDo\ \UNDx\ \ITLx\ Reviewed and Electronically Signed by: KHRIS WINN Signed Date: SIGNDATE US VENOUS LEFT LE - Complete d: 11/01/2024 19:13 LOINC: 35841-7 \TM00\\12PI\\DRAo\\BM09\ \MRHo\ [address] [address] ---------NAME--------- NUMBER SEX AGE ADMIT DISC. XRAY# F/C TYPE EMILIANO LYNN STERLING [id number] F 59 11/01/24 30234 XB7 E.R. DATE OF : 1965 M/R# [id number] #: [id number] ED-31 \[facility]\ LOCATION: TRANSCRIBED: 11/01/24 19:16 [place] [address] COMPLETED:11/01/24 19:13 MRP [id number] LEG SWELLING;Chest Pain PHYSICIAN: ORQUIDEA Maya R [...] THROMBOSIS IN THE LEFT LOWER EXTREMITY VEINS. PRINTER \ITLo\ \UNDo\ \UNDx\ \ITLx\ Reviewed and Electronically Signed by: Scout Mcclellan MD Signed Date: 11/01/24 19:16 Social History Type Status Start Date End Date Code Code Syst em Smoking History Current every day smoker [id number] SNOMED CT Sex Female Hospital Discharge Instructions Should you have any questions prior to discharge, please contact a member of your healthcare team. If you have left the hospital and have any questions, please contact your primary care physician. Reason For Referral No Data Found Allergies and Adverse Reactions Allergy Substance Reaction Severity Start Date Concern Status Co de Code System CYCLOBENZAPRINE Active 58441 RxNorm PENICILLIN Active Plan of Treatment No Data Found Encounters Encounter Diagnosis Start Date Code Code Sys tem Other chest pain 11/01/2024 SNOMED-CT Personal Care Team Section Performer Name Performer Role Active Date Inactive Rohan Vicente PCP - Primary care physician 2024-01-04 2024-01-04 Imaging Narrative Notes [facility] 11/01/2024 19:21 [facility] [address] [place] [address] ---------NAME--------- NUMBER SEX AGE ADMIT DISC. XRAY# F/C TYPE EMILIANO LYNN STERLING [id number] F 59 11/01/24 71900 XB7 E.R. DATE OF : 1965 M/R# [id number] #: [id number] ED-31 LOCATION: TRANSCRIBED: 11/01/24 19:19 CHEST 1V 60758 COMPLETED:11/01/24 18:32 MRP [id number] Chest Pain PHYSICIAN: ORQUIEDA G RADIOLOGY REPORT CHEST RADIOGRAPH Indication: Chest Pain Technique: Single frontal view of the chest was obtained COMPARISON: None FINDINGS: Lines and Tubes: None Lungs: Congestion Pleura: No effusion. No pneumothorax. Cardiomediastinal contours: Unremarkable Bones: Unremarkable IMPRESSION: Increased interstital prominence. This may represent pulmonary vascular congestion and/or viral pneumonia. Clinical correlation advised. PRINTER Reviewed and Electronically Signed by: Scout Mcclellan MD Signed Date: 11/01/24 19:19 [facility] 11/01/2024 21:[address] [address] ---------NAME--------- NUMBER SEX AGE ADMIT DISC. XRAY# F/C TYPE EMILIANO STERLING [id number] F 59 11/01/24 72535 XB7 EAlisaRAlisa DATE OF : 1965 M/R# [id number] #: [id number] ED-31 LOCATION: TRANSCRIBED: 11/01/24 21:40 CHEST 2V 45486 COMPLETED:11/01/24 21:39 MRP [id number] Chest Pain PHYSICIAN: ORQUIDEA Maya RADIOLOGY REPORT CHEST 2V INDICATION: Chest Pain TECHNIQUE: Two views of the chest COMPARISON: CHEST 1V on DOS: 11/01/24 FINDINGS/IMPRESSION: LUNGS: No pleural effusion, consolidation, or pneumothorax. Peripheral interstitial edema. MEDIASTINUM: Unremarkable BONES: No acute osseous abnormality OTHER: None PRINTER Reviewed and Electronically Signed by: KHRIS WINN Signed Date: SIGNDATE [facility] 11/01/2024 19:19 [facility] [address] [place] [address] ---------NAME--------- NUMBER SEX AGE ADMIT DISC. XRAY# F/C TYPE EMILIANO STERLING [id number] F 59 11/01/24 92256 XB7 E.R. DATE OF : 1965 M/R# [id number] #: [id number] ED-31 LOCATION: TRANSCRIBED: 11/01/24 19:16 [place] [address] COMPLETED:11/01/24 19:13 MRP [id number] LEG SWELLING;Chest Pain PHYSICIAN: ORQUIDEA G RADIOLOGY [...] THROMBOSIS IN THE LEFT LOWER EXTREMITY VEINS. PRINTER Reviewed and Electronically Signed by: Scout Mcclellan MD Signed Date: 11/01/24 19:16
--- OUTSIDE RECORDS SUMMARY | 2025-01-13 17:41 | XMS_ITS | Clinical Summary ---
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
--- OUTSIDE RECORDS SUMMARY | 2025-01-13 17:41 | XMS_ITS | Clinical Summary ---
Author Organization [facility] Address [address] [place] [address] Care Team Providers Care Trimmer Hand Name Role Phone Herb Tate TOOL CRIB SUPERVISOR-MERCHANDISING COORDINATOR Primary Care Provider [phone] Source Comments [facility] Affiliates and Associated Physician Practices is amultiple site organization consisting of ambulatory clinics and hospital sitesin [place], [place], [place] and [place]. This disclosure is being madepursuant to the Care Everywhere program and may not contain all information available regarding this patient. Last updated 17.[facility] Allergies Active Allergy Reactions Criticality Noted Date [...] as needed for pain 5 Active Klayesta 750970 UNIT/GM powder APPLY 1 APPLICATION TOPICALLY TWICE DAILY FOR 7 DAYS Active nystatin (Mycostatin) 262519 UNIT/GM cream APPLY TOPICALLY TO THE AFFECTED [...] 11/15/2024 Weakness 11/14/2024 Cerebrovascular accident (CVA), unspecified [facility] 11/14/2024 Encounters Date Type Department Care Team Description 01/05/2025 Orders Only [facility] - Cardiac Drywall Taper [address] [place] [phone] Sussy Kaur MD Stable angina ; ALLEN (dyspnea on exertion); Mixed hyperlipidemia; History of tobacco use; Type 2 diabetes mellitus without complication, without long-term current use of insulin ([facility]) 12/31/2024 4:40 PM RETAIL ADMINISTRATIVE ASSISTANT Video Visit [facility] - Cardiology [address] [phone] Sussy Kaur MD PFO (patent foramen ovale) ([facility]) ; Cerebrovascular accident (CVA), unspecified mechanism ([facility]) 12/31/2024 Orders Only [facility] - Cardiac Drywall Taper [address] [place] [phone] Sussy Kuar MD PFO (patent foramen ovale) ([facility]) ; History of TIA (transient ischemic attack) 12/19/2024 6:35 AM RETAIL ADMINISTRATIVE ASSISTANT - 12/19/2024 11:59 PM RETAIL ADMINISTRATIVE ASSISTANT Hospital Encounter [facility] - Cardiac Drywall Taper [address] [place] [phone] Sussy Kaur MD Discharge Disposition: Home or Self Care 12/19/2024 Travel 12/08/2024 Transcribe Orders [facility] - Centralized Scheduling [address] [place] [address] Herb Tate, TOOL CRIB SUPERVISOR-MERCHANDISING COORDINATOR Transient neurological symptoms 11/28/2024 10:00 AM CDT Office Visit [facility] - Cardiology [address] [facility] [place] [address] Sussy Kaur MD Cerebrovascular accident (CVA), unspecified mechanism (HCC) (Primary Dx) 11/28/2024 Travel 11/25/2024 Travel 11/14/2024 7:37 PM CDT - 11/16/2024 5:57 PM CDT Hospital Encounter [facility] [address] [place] [phone] Dustin Singh MD Edgell, Randall C, MD [...] and heating? Not hard at all 11/15/2024 [facility] - Occupational Stress [...] any time in the past 12 m [facility], were you homeless or living in a retirement (including now)? No 11/15/2024 Comments No Sex and Gender Information Value Date Recorded Sex Assigned at Not on file Legal Sex Female 5:58 PM RETAIL ADMINISTRATIVE ASSISTANT Gender Identity Not on file Sexual Orientation Not on file Last Filed Vital Signs Vital Sign Reading Time Taken Comments Blood Pressure 109/59 12/19/2024 10:45 AM RETAIL ADMINISTRATIVE ASSISTANT Pulse 74 12/19/2024 10:45 AM RETAIL ADMINISTRATIVE ASSISTANT Temperature 36.4 C (97.6 F) 12/19/2024 10:12 AM RETAIL ADMINISTRATIVE ASSISTANT Respiratory Rate 13 12/19/2024 10:45 AM RETAIL ADMINISTRATIVE ASSISTANT Oxygen Saturation 95% 12/19/2024 10:45 AM RETAIL ADMINISTRATIVE ASSISTANT Inhaled Oxygen Concentration - - Weight 122.5 kg (270 lb) 12/31/2024 8:17 AM RETAIL ADMINISTRATIVE ASSISTANT Height 167.6 cm (5' 6) 12/31/2024 8:17 AM RETAIL ADMINISTRATIVE ASSISTANT Body Mass Index 43.58 12/31/2024 8:17 AM RETAIL ADMINISTRATIVE ASSISTANT Plan of Treatment Upcoming Encounters Date Type Department Care Team (Latest Contact Info) Description 01/26/2025 9:40 AM RETAIL ADMINISTRATIVE ASSISTANT Hospital Encounter [facility] [address] [place] [address] Sussy Kaur MD [address] [place] [address] Cardiac Catheterization 01/26/2025 9:40 AM RETAIL ADMINISTRATIVE ASSISTANT - 01/26/2025 11:34 AM RETAIL ADMINISTRATIVE ASSISTANT Surgery [facility] - Cardiac Drywall Taper [address] [place] [address] Sussy Kaur MD [address] [facility] [place] [address] Patent Foramen Ovale (PFO) Closure 02/09/2025 11:00 AM RETAIL ADMINISTRATIVE ASSISTANT Appointment [facility] CAT SCAN [address] [place] [address] Eveline Roland APRN-MERCHANDISING COORDINATOR [address] [address] 03/06/2025 9:20 AM RETAIL ADMINISTRATIVE ASSISTANT Office Visit [facility] - Cardiology [address] [facility], [facility] [address] [place] [phone] Sussy Kaur MD [address] [address] Health Maintenance Due Date Last Done Comments [...] MARY COMPLETE Routine 12/19/2024 10: 06 AM RETAIL ADMINISTRATIVE ASSISTANT Cerebrovascular accident (CVA), unspecified mechanism (HCC) GLUCOSE - POINT OF CARE Routine 12/19/2024 8:01 AM RETAIL ADMINISTRATIVE ASSISTANT CBC W/O DIFFERENTIAL Routine 12/19/2024 7:55 AM RETAIL ADMINISTRATIVE ASSISTANT Cerebrovascular accident (CVA), unspecified mechanism (HCC) BASIC METABOLIC PANEL (CALCIUM TOTAL) Routine 12/19/2024 7:55 AM RETAIL ADMINISTRATIVE ASSISTANT Cerebrovascular accident (CVA), unspecified mechanism (HCC) GLUCOSE [...] * ECHO MARY COMPLETE (12/19/2024 10:06 AM RETAIL ADMINISTRATIVE ASSISTANT) TR pk ja 244 cm/s [facility] CV O4IT PACS Anatomical Region Laterality Modality Ultrasound 12/19/2024 9:09 AM RETAIL ADMINISTRATIVE ASSISTANT Narrative 12/25/2024 11:33 AM RETAIL ADMINISTRATIVE ASSISTANT Summary * Left ventricular systolic function is [...] Status: O/P Study Site: [facility] Primary Location: [facility] EStudy Info Exam Type: ECHO MARY COMPLETE Indications I63.9 - Cerebrovascular accident (CVA), unspecified mechanism (HCC) * A complete transesophageal echo was performed using 2D, color Doppler, and spectral Doppler. Staff Referring Physician: Sussy Kaur Ordering Provider: Sussy Kaur Attending Physician: Sussy Kaur Fellow: Breonna Perez Library Acquisitions Technician: Fior Franz Performing Physician: Edward Mcguire Complications [...] in satisfactory condition. Probe passed by the business performance analyst without difficulty. Left Ventricle The left ventricle [...] Status: O/P Study Site: [facility] Primary Location: [facility] EStudy Info Exam Type: ECHO MARY COMPLETE Indications I63.9 - Cerebrovascular accident (CVA), unspecified mechanism (HCC) * A complete transesophageal echo was performed using 2D, color Doppler,and spectral Doppler. Staff Referring Physician: Sussy Kaur Ordering Provider: Sussy Karu Attending Physician: Sussy Kaur Fellow: Breonna Perez Library Acquisitions Technician: Fior Franz Performing Physician: Edward Mcguire Complications [...] - POINT OF CARE (12/19/2024 8:01 AM [facility]) Only the most recent of7 resultswithin the time period is included. Glucose WB/POC 102(H) 70 - 99 mg/dL 12/19/2024 8:06 AM [facility] Specimen Type Venous 12/19/2024 8:06 AM [facility] Blood BLOOD SPECIMEN / Unknown 12/19/2024 8:01 AM RETAIL ADMINISTRATIVE ASSISTANT 12/19/2024 8:06 AM [facility] Sussy Kaur MD LAB - POINT OF CARE ORDERAB LES Final Result [facility] [address] [place] [address], [facility] [phone] * CBC W/O DIFFERENTIAL (12/19/2024 7:55 AM RETAIL ADMINISTRATIVE ASSISTANT) Only the most recent of3 resultswithin the time period is included. [facility] WBC 7.5 4.0 - 10.7 x10E9/L 12/19/2024 8:13 AM [facility] RBC Count 4.44 3.90 - 5.20 x10E12/L 12/19/2024 8:13 AM [facility] Hemoglobin 12.6 11.9 - 15.8 g/dL 12/19/2024 8:13 AM [facility] Hematocrit 38.3 34.8 - 46.1 % 12/19/2024 8:13 AM [facility] MCV 86.3 80.0 - 98.0 fL 12/19/2024 8:13 AM [facility] MCH 28.4 26.7 - 33.6 pg 12/19/2024 8:13 AM [facility] MCHC 32.9 31.7 - 36.3 g/dL 12/19/2024 8:13 AM [facility] RDW-CV 13.7 11.3 - 14.8 % 12/19/2024 8:13 AM [facility] Platelet Count 320 150 - 420 x10E9/L 12/19/2024 8:13 AM [facility] MPV 9.6 7.8 - 11.4 fL 12/19/2024 8:13 AM [facility] Blood BLOOD SPECIMEN / Unknown Venipuncture / Unknown 12/19/2024 7:55 AM RETAIL ADMINISTRATIVE ASSISTANT 12/19/2024 8:10 AM [facility] us Sussy Kaur MD LAB - HEMATOLOGY ORDERABLES Final Result [address] [address], [facility] [phone] * (ABNORMAL) BASIC METABOLIC PANEL (CALCIUM TOTAL) (12/19/2024 7:55 AM RETAIL ADMINISTRATIVE ASSISTANT) Only the most recent of3 resultswithin the time period is included. [facility] BUN 13 7 - 26 mg/dL 12/19/2024 8:43 AM [facility] Creatinine 0.50(L) 0.56 - 0.96 mg/dL 12/19/2024 8:43 AM [facility] Sodium 140 136 - 145 mmol/L 12/19/2024 8:43 AM [facility] Potassium 4.2 3.5 - 4.5 mmol/L 12/19/2024 8:43 AM [facility] Chloride 107 98 - 107 mmol/L 12/19/2024 8:43 AM [facility] CO2 25 22 - 29 mmol/L 12/19/2024 8:43 AM [facility] Glucose 94 70 - 99 mg/dL 12/19/2024 8:43 AM [facility] Calcium 9.2 8.4 - 10.2 mg/dL 12/19/2024 8:43 AM [facility] Anion Gap 8 6 - 16 12/19/2024 8:43 AM [facility] BUN/Creatinine Ratio 26(H) 7 - 23 12/19/2024 8:43 AM [facility] Osmolality Calculated 290 275 - 295 mOsm/kg 12/19/2024 8:43 AM [facility] eGFR by CKD-EPI >90 >=90 mL/min/1.7 3 m2 12/19/2024 8:43 AM [facility] Comment:Estimated Glomerular Filtration Rate (eGFR) calculated using the CKD-EPI Creatinine Equation (2020), per the National Kidney Foundation and [place] Society of Nephrology recommendations. Blood BLOOD SPECIMEN / Unknown Venipuncture / Unknown 12/19/2024 7:55 AM RETAIL ADMINISTRATIVE ASSISTANT 12/19/2024 8:10 AM [facility] us Sussy Kaur MD LAB - CHEMISTRY ORDERABLES Final Result [facility] [address] [place] [address], [facility] [phone] * HEMOGLOBIN A1C (11/16/2024 4:45 AM CDT) Only the most recent of2 resultswithin the time period is included. Hemoglobin A1c 5.6 <=5.6 % 11/16/2024 8:51 AM CDT [facility] Estimated Average Glucose 114 mg/dL 11/16/2024 8:51 AM CDT [facility] Comment: HbA1c Interpretation: Normal : < 5.7% Pre-diabetes: 5.7-6.4% Diabetes: Equal to or greater than 6.5% Test results diagnostic of diabetes should be repeated for confirmation. Treatment target values recommended by ADA and other clinical organizations should be used to evaluate metabolic control in patients. Reference: [place] Diabetes Association, Standards of Care in Diabetes -2020 In patients 70 years and older consider HbA1c target range of 7.0-7.5% (Reference: Ko Escoto et al. JAMDA. 2012) The Sebia assay for the measurement of HbA1c is a National Glycohemoglobin Standardization Program (NGSP) certified method. Blood BLOOD SPECIMEN / Unknown Venipuncture / Unknown 11/16/2024 4:45 AM CDT 11/16/2024 5:20 AM CDT Jose Hill TOOL CRIB SUPERVISOR-MERCHANDISING COORDINATOR LAB - CHEMISTRY ORDERABLE S Final Result [facility] [address] [place] [address], [facility] [phone] * CT HEAD NON CONTRAST (11/15/2024 5:08 PM CDT) Anatomical Region Laterality Modality Head Computed Tomogra phy 11/15/2024 7:27 PM CDT Impressions 11/15/2024 8:38 PM CDT IMPRESSION: 1.No acute intracranial hemorrhage, midline shift, or significant mass effect. Report was dictated by Jamison Camp MD, ([facility] resident) 11/15/2024 7:27 PM > Dictated by Jamison Camp MD 11/15/2024 7:27 PM > Dictated by Supply Analyst I, Ana Laura Mahan MD have personally reviewed and interpreted this examination/study. > Interpreting Provider: Ana Laura Mahan MD on 11/15/2024 8:38 PM Narrative 11/15/2024 8:38 PM CDT PROCEDURE: CT HEAD WO CONTRAST, DATE/TIME OF EXAM: 11/15/2024 5:09 PM, LOCATION [facility] INDICATION: I63.9: Cerebrovascular accident (CVA), unspecified [...] DATE/TIME OF EXAM: 11/15/2024 5:09 PM, LOCATION [facility] INDICATION: I63.9: Cerebrovascular accident (CVA), unspecified [...] MD 11/15/2024 7:27 PM > Dictated by Supply Analyst IAna Laura MD have personally reviewed and [...] FUJI PACS RVIDd 3.357 cm [facility] [...] PACS MV VTI 20.203 cm [facility] I PACS PV pk ja 99.299 cm/s [facility] I PACS PV VTI 16.439 cm [facility] I PACS TAPSE 1.91 cm [facility] I PACS Ascending aorta 3.435 cm [facility] IVC Diam Expiration 1.644 cm [facility] Sinus of Valsalva 2.6 cm SS [...] Status: I/P Study Site: [facility] Primary Location: [facility] EStudy Info Technical Quality: Technically Difficult [...] Provider: Dustin Singh Attending Physician: Dustin Singh Library Acquisitions Technician: Candelario Enriquez Left Ventricle The left ventricle [...] Status: I/P Study Site: [facility] Primary Location: [facility] Info Technical Quality: Technically Difficult Exam [...] Provider: Dustin Singh Attending Physician: Dustin Singh Library Acquisitions Technician: Candelario Enriquez Left Ventricle The left ventricle [...] Sensitive <3 <=14 ng/L 11/15/2024 12:07 AM [facility] Delta Troponin I HS 11/15/2024 12:07 AM [facility] Comment:Delta value intentio sandor not calculated. Baseline to 1 hour specimen collection interval exceeded. Blood BLOOD SPECIMEN / Unknown Venipuncture / Unknown 11/14/2024 11:10 PM CDT 11/14/2024 11:33 PM CDT us Dustin Singh MD LAB - CHEMISTRY ORDERABLES Final Result [facility] [address] [place] [address], [facility] [phone] * LIPID PROFILE (11/14/2024 11:10 PM CDT) Pathologist [facility] Cholesterol Total 138 <200 mg/dL 11/15/2024 12:02 AM [facility] HDL 48 >40 mg/dL 11/15/2024 12:02 AM [facility] Comment: ATP III Classification of HDL Cholesterol: <40 mg/dL: Considered a major risk factor. >60 mg/dL: Considered a negative risk factor. LDL Calculated 72 <100 mg/dL 11/15/2024 12:02 AM [facility] Comment: ATP III Classification of LDL Cholesterol: <100 mg/dL: Optimal 100 - 129 mg/dL: Near Optimal/Above Optimal 130 - 159 mg/dL: Borderline High 160 - 189 mg/dL: High >190 mg/dL: Very High LDL is calculated using the Friedewald equation. Triglycerides 88 <150 mg/dL 11/15/2024 12:02 AM [facility] Comment: ATP III Classification of Triglycerides: <150 mg/dL: Normal 150 - 199 mg/dL: Borderline High 200 - 400 mg/dL: High >500 mg/dL: Very High Blood BLOOD SPECIMEN / Unknown Venipuncture / Unknown 11/14/2024 11:10 PM CDT 11/14/2024 11:33 PM CDT us Dustin Singh MD LAB - CHEMISTRY ORDERABLES Final Result [address] [address], [place] [phone] * TROPONIN-I HIGH SENSITIVE BASELINE + 1HR (11/14/2024 9:27 PM CDT) Troponin I High Sensitive <3 <=14 ng/L 11/14/2024 10:44 PM CDT [facility] Blood BLOOD SPECIMEN / Unknown Venipuncture / Unknown 11/14/2024 9:27 PM CDT 11/14/2024 10:04 PM CDT Dustin Singh MD LAB - CHEMISTRY ORDERABLES Final Result Performing Organization Address City/[facility]/ZIP Co de Phone Number [address] [address], [place] [phone] * XR CHEST 1VW PORTABLE (11/14/2024 8:37 [...] TROPONIN-I HIGH SENSITIVE (11/14/2024 8:14 PM CDT) [facility] Troponin I High Sensitive <3 <=14 ng/L 11/14/2024 8:56 PM CDT [facility] Blood BLOOD SPECIMEN / Unknown Venipuncture / Unknown 11/14/2024 8:14 PM CDT 11/14/2024 8:20 PM CDT Result [facility] Ayden Alba MD LAB - CHEMISTRY ORDERABLES F inal Result [address] [address], [facility] [phone] * PTT (11/14/2024 8:14 PM CDT) [facility] APTT 29.6 23.0 - 38.4 Seconds 11/14/2024 8:44 PM CDT [facility] Comment:Suggested therapeuti c range for full dose I.V. unfractionated heparin therapy for venous thromboembolism is 71 to 109 seconds. Blood BLOOD SPECIMEN / Unknown Venipuncture / Unknown 11/14/2024 8:14 PM CDT 11/14/2024 8:20 PM CDT Result [facility] Ayden Alba MD LAB - COAGULATION ORDERABLES Final Result Performing Organization Address City/[facility]/ZIP Co de Phone Number [address] [address], [facility] [phone] * PT-INR (11/14/2024 8:14 PM CDT) [facility] PT 12.6 12.1 - 14.8 Seconds 11/14/2024 8:44 PM [facility] INR 1.0 See Comment 11/14/2024 8:44 PM [facility] Comment:The suggested therap eutic range for standard coumadin (warfarin) therapy is an INR of 2.0-3.0. For high-risk patients (Mechanical Mitral Valve Prosthesis, etc.), the suggested prophylactic therapeutic range is an INR of 2.5-3.5. Blood BLOOD SPECIMEN / Unknown Venipuncture / Unknown 11/14/2024 8:14 PM CDT 11/14/2024 8:20 PM CDT us Ayden Alba MD LAB - COAGULATION ORDERABLES Final Result [facility] [address] [place] [address], [facility] [phone] * CBC W AUTO DIFFERENTIAL (11/14/2024 8:14 PM CDT) Pathologist [facility] WBC 7.4 4.0 - 10.7 x10E9/L 11/14/2024 8:28 PM [facility] RBC Count 4.34 3.90 - 5.20 x10E12/L 11/14/2024 8:28 PM [facility] Hemoglobin 12.5 11.9 - 15.8 g/dL 11/14/2024 8:28 PM [facility] Hematocrit 37.9 34.8 - 46.1 % 11/14/2024 8:28 PM [facility] MCV 87.3 80.0 - 98.0 fL 11/14/2024 8:28 PM [facility] MCH 28.8 26.7 - 33.6 pg 11/14/2024 8:28 PM [facility] MCHC 33.0 31.7 - 36.3 g/dL 11/14/2024 8:28 PM [facility] RDW-CV 13.6 11.3 - 14.8 % 11/14/2024 8:28 PM CDT [facility] Platelet Count 282 150 - 420 x10E9/L 11/14/2024 8:28 PM [facility] MPV 10.1 7.8 - 11.4 fL 11/14/2024 8:28 PM [facility] Neutrophil % 66.5 41.0 - 74.0 % 11/14/2024 8:28 PM [facility] Lymphocyte % 24.7 17.0 - 47.0 % 11/14/2024 8:28 PM [facility] Monocyte % 5.4 3.0 - 11.0 % 11/14/2024 8:28 PM [facility] Eosinophil % 3.0 0.0 - 7.0 % 11/14/2024 8:28 PM [facility] Basophil % 0.1 0.0 - 1.6 % 11/14/2024 8:28 PM [facility] Immature Granulocytes % 0.3 0.0 - 1.0 % 11/14/2024 8:28 PM [facility] Neutrophil Absolute 4.89 1.60 - 7.50 x10E9/L 11/14/2024 8:28 PM [facility] Lymphocyte Absolute 1.82 1.00 - 4.40 x10E9/L 11/14/2024 8:28 PM [facility] Monocyte Absolute 0.40 0.15 - 1.00 x10E9/L 11/14/2024 8:28 PM [facility] Eosinophil Absolute 0.22 0.00 - 0.60 x10E9/L 11/14/2024 8:28 PM [facility] Basophil Absolute 0.01 0.00 - 0.13 x10E9/L 11/14/2024 8:28 PM [facility] Blood BLOOD SPECIMEN / Unknown Venipuncture / Unknown 11/14/2024 8:14 PM CDT 11/14/2024 8:20 PM [facility] us Ayden Alba MD LAB - HEMATOLOGY ORDERABLES Final Result [facility] [address] [place] [address] [phone] * (ABNORMAL) COMPREHENSIVE METABOLIC PANEL (11/14/2024 8:14 PM [facility]) [facility] Signature BUN 8 7 - 26 mg/dL 11/14/2024 8:52 PM [facility] Creatinine 0.55(L) 0.56 - 0.96 mg/dL 11/14/2024 8:52 PM [facility] Sodium 140 136 - 145 mmol/L 11/14/2024 8:52 PM [facility] Potassium 3.7 3.5 - 4.5 mmol/L 11/14/2024 8:52 PM [facility] Chloride 108(H) 98 - 107 mmol/L 11/14/2024 8:52 PM [facility] CO2 25 22 - 29 mmol/L 11/14/2024 8:52 PM [facility] Glucose 105(H) 70 - 99 mg/dL 11/14/2024 8:52 PM [facility] Calcium 9.3 8.4 - 10.2 mg/dL 11/14/2024 8:52 PM [facility] Protein Total 6.7 6.0 - 8.3 g/dL 11/14/2024 8:52 PM [facility] Albumin 3.7 3.4 - 5.0 g/dL 11/14/2024 8:52 PM [facility] Bilirubin Total 0.3 0.2 - 1.2 mg/dL 11/14/2024 8:52 PM [facility] Alkaline Phosphatase 150 40 - 150 U/L 11/14/2024 8:52 PM [facility] ALT 23 5 - 55 U/L 11/14/2024 8:52 PM [facility] AST 17 5 - 34 U/L 11/14/2024 8:52 PM [facility] Anion Gap 7 6 - 16 11/14/2024 8:52 PM [facility] BUN/Creatinine Ratio 15 7 - 23 11/14/2024 8:52 PM [facility] Osmolality Calculated 289 275 - 295 mOsm/kg 11/14/2024 8:52 PM [facility] Albumin/Globulin Ratio 1.2 1.1 - 2.3 11/14/2024 8:52 PM CDT [facility] eGFR by CKD-EPI >90 >=90 mL/min/1.7 3 m2 11/14/2024 8:52 PM CDT [facility] Comment:Estimated Glomerular Filtration Rate (eGFR) calculated using the CKD-EPI Creatinine Equation (2020), per the National Kidney Foundation and [place] Society of Nephrology recommendations. Blood BLOOD SPECIMEN / Unknown Venipuncture / Unknown 11/14/2024 8:14 PM CDT 11/14/2024 8:20 PM CDT us Ayden Alba MD LAB - CHEMISTRY ORDERABLES F inal Result [facility] [address] [place] [address], [facility] [phone] * CT ANGIO BRAIN NECK STROKE (11/14/2024 [...] DATE/TIME OF EXAM: 11/14/2024 8:04 PM, LOCATION [facility] INDICATION: R53.1: Weakness ADDITIONAL CLINICAL INFORMATION: [...] STROKE, DATE/TIME OF EXAM: :04 PM, LOCATION [facility] INDICATION: R53.1: Weakness ADDITIONAL CLINICAL INFORMATION: [...] without significant focal stenosis. 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 The remaining right [...] DATE/TIME OF EXAM: 11/14/2024 7:45 PM, LOCATION [facility] INDICATION: R53.1: Weakness EXAMINATION: Computed tomography [...] DATE/TIME OF EXAM: 11/14/2024 7:45 PM, LOCATION [facility] INDICATION: R53.1: Weakness EXAMINATION: Computed tomography [...] Final Result from Last 3 Months Insurance [facility] Advance Directives * Full Code (Latest Code Status on File) Date Activated Date Inactivated Comments 11/14/2024 8:18 PM 11/16/2024 7:33 PM Care Teams Trimmer Hand Relationship Specialty Start Date End Date Herb Tate, TOOL CRIB SUPERVISOR-MERCHANDISING COORDINATOR [address] [place] [id number] PCP - General Nurse Practitioner 11/14/24
--- OUTSIDE RECORDS SUMMARY | 2025-01-13 17:41 | XMS_ITS | Encounter Summary ---
Author Organization [facility] Address [facility] [place] [address] Care Team Providers Care Melter Clerk Name Role Phone Rhianna Shepard Primary Care Provider [phone] Encounter Details Date Type Department Care Team (Late st Contact Info) Description 07/13/2018 Abstract SFL CONVERSION [address] [place] [address] , Generic Conversion, Social History Tobacco Use [...] on filedocumented in this encounter Care Teams Melter Clerk Relationship Specialty Start Date End Date Rhianna Shepard PA [address] [place] [address] PCP - General PHYSICIAN ELECTRICAL ESTIMATOR 11/18/19 documented as of this encounter
== END 2025-01-13 17:22 | disposition home or self-care (01) ==
PROVIDERS: Emergency Provider Emergency Medicine; PCP Nurse Practitioner Family
DX: J44.1 Chronic obstructive pulmonary disease with (acute) exacerbation (principal); E11.9 Type 2 diabetes mellitus without complications; I11.0 Hypertensive heart disease with heart failure; I50.9 Heart failure, unspecified; Z87.891 Personal history of nicotine dependence; Z79.899 Other long term (current) drug therapy; Z77.22 Contact with and (suspected) exposure to environmental tobacco smoke (acute) (chronic)
CPT/HCPCS: 36415; 71045; 80053; 81003; 83735; 83880; 84484; 85025; 85380; 85610; 87502; 93005; 94640; 96374; 99284; J2919

== ENCOUNTER 2025-01-21 08:58 | Outpatient (CLI) | payer OTHER, SELFPAY ==
--- NOTE | ~2025-01-21 | XR_ITS ---
EXAMINATION: XR chest 2V, 01/21/2025 9:18 [facility] [employer] HISTORY: Pneumonia X 3 weeks, COPD, FormSmoke, hole in heart surg Mon COMPARISON: No comparisons available. Technique: 2 views obtained. Findings: The lungs are clear, no effusion. No pneumothorax. Heart is normal size. Mediastinal and hilar contours are within normal limits. Bony thorax no acute abnormality. Impression: No acute cardiopulmonary abnormality. Reviewed, dictated and finalized at location [facility] [employer] Impression: No acute cardiopulmonary abnormality.
--- OUTSIDE RECORDS SUMMARY | 2025-01-21 09:38 | XMS_ITS | Clinical Summary ---
Author Organization [facility] Address [address] [facility] [place] [address] Phone Care Team Providers Care Commercial Tire Service Technician Name Role Phone Rhianna Shepard EVA Primary [...] Insurance [employer] Care Teams Commercial Tire Service Technician Relationship Specialty Start Date End Date Rhianna Shepard PAC [address] [place] [address] PCP - General Advanced Practice Nurse 07/02/23
--- OUTSIDE RECORDS SUMMARY | 2025-01-21 09:38 | XMS_ITS | Encounter Summary ---
Author Organization [facility] Address [facility] [place] [address] Care Team Providers Care Pull Over Machine Operator Name Role Phone Rhianna Shepard Primary Care Provider [phone] Encounter Details Date Type Department Care Team (Late st Contact Info) Description 07/13/2018 Abstract [facility] CONVERSION [address] [place] [address] , Generic Conversion, Social History Tobacco Use [...] on filedocumented in this encounter Care Teams Pull Over Machine Operator Relationship Specialty Start Date End Date Rhianna Shepard PA [address] [place] [address] PCP - General PHYSICIAN MANAGER REVENUE 11/18/19 documented as of this encounter
--- OUTSIDE RECORDS SUMMARY | 2025-01-21 09:38 | XMS_ITS | Clinical Summary ---
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 Care Teams Advertising Sales Executive Relationship Specialty Start Date End Date Rhianna Shepard PA [address] [place] [address] PCP - General Emergency Medicine 04/29/18
--- OUTSIDE RECORDS SUMMARY | 2025-01-21 09:38 | XMS_ITS | Clinical Summary ---
Author Organization [facility] Address [address] [place] [address] Care Team Providers Care Printed Circuit Boards Plasma Etcher Name Role Phone Herb Tate DOCK HAND-ACCIDENT EXAMINER Primary Care Provider [phone] Source Comments [facility],non-[facility]ates and Associated Physician Practices is amultiple site organization consisting of ambulatory clinics and hospital sitesin [place], [place]. This disclosure is being madepursuant to the Care Everywhere program and may not contain all information available regarding this patient. Last updated 17.[facility] Allergies Active Allergy Reactions Criticality Noted Date [...] as needed for pain 5 Active Klayesta 635661 UNIT/GM powder APPLY 1 APPLICATION TOPICALLY TWICE DAILY FOR 7 DAYS Active nystatin (Mycostatin) 896018 UNIT/GM cream APPLY TOPICALLY TO THE AFFECTED [...] 11/15/2024 Weakness 11/14/2024 Cerebrovascular accident (CVA), unspecified [facility] 11/14/2024 Encounters Date Type Department Care Team Description 01/05/2025 Orders Only [facility] - Cardiac Marketing Database Analyst [address] [place] [phone] Sussy Kaur MD Stable angina ; ALLEN (dyspnea on exertion); Mixed hyperlipidemia; History of tobacco use; Type 2 diabetes mellitus without complication, without long-term current use of insulin ([facility]) 12/31/2024 4:40 PM SLATE TRIMMER Video Visit [facility] - Cardiology [address] [address] Sussy Kaur MD PFO (patent foramen ovale) ([facility]) ; Cerebrovascular accident (CVA), unspecified mechanism ([facility]) 12/31/2024 Orders Only [facility] - Cardiac Marketing Database Analyst [address] [place] [phone] Sussy Kaur MD PFO (patent foramen ovale) ([facility]) ; History of TIA (transient ischemic attack) 12/19/2024 6:35 AM SLATE TRIMMER - 12/19/2024 11:59 PM SLATE TRIMMER Hospital Encounter [facility] - Cardiac Marketing Database Analyst [address] [place] [phone] Sussy Kaur MD Discharge Disposition: Home or Self Care 12/19/2024 Travel 12/08/2024 Transcribe Orders [facility] - Centralized Scheduling [address] [place] [address] Herb Tate, DOCK HAND-ACCIDENT EXAMINER Transient neurological symptoms 11/28/2024 10:00 AM CDT Office Visit [facility] - Cardiology [address] [facility] [place] [address] Sussy Kaur MD Cerebrovascular accident (CVA), unspecified mechanism (HCC) (Primary Dx) 11/28/2024 Travel 11/25/2024 Travel 11/14/2024 7:37 PM CDT - 11/16/2024 5:57 PM CDT Hospital Encounter [facility] ICU [address] [place] [phone] Dustin Singh MD Edgell, Randall C, MD [...] and heating? Not hard at all 11/15/2024 [place] [facility] - Occupational Stress [...] any time in the past 12 m [facility], were you homeless or living in a chcf (including now)? No 11/15/2024 Comments No Sex and Gender Information Value Date Recorded Sex Assigned at Not on file Legal Sex Female 5:58 PM SLATE TRIMMER Gender Identity Not on file Sexual Orientation Not on file Last Filed Vital Signs Vital Sign Reading Time Taken Comments Blood Pressure 109/59 12/19/2024 10:45 AM SLATE TRIMMER Pulse 74 12/19/2024 10:45 AM SLATE TRIMMER Temperature 36.4 C (97.6 F) 12/19/2024 10:12 AM SLATE TRIMMER Respiratory Rate 13 12/19/2024 10:45 AM SLATE TRIMMER Oxygen Saturation 95% 12/19/2024 10:45 AM SLATE TRIMMER Inhaled Oxygen Concentration - - Weight 122.5 kg (270 lb) 12/31/2024 8:17 AM SLATE TRIMMER Height 167.6 cm (5' 6) 12/31/2024 8:17 AM SLATE TRIMMER Body Mass Index 43.58 12/31/2024 8:17 AM SLATE TRIMMER Plan of Treatment Upcoming Encounters Date Type Department Care Team (Latest Contact Info) Description 01/26/2025 9:40 AM SLATE TRIMMER Hospital Encounter [facility] [address] [place] [address] Sussy Kaur MD [address] [place] [address] Cardiac Catheterization 01/26/2025 9:40 AM SLATE TRIMMER - 01/26/2025 11:34 AM SLATE TRIMMER Surgery [facility] - Cardiac Marketing Database Analyst [address] [place] [address] Sussy Kaur MD [address] [facility] [place] [address] Patent Foramen Ovale (PFO) Closure 02/09/2025 11:00 AM SLATE TRIMMER Appointment [facility] [address] [place] [address] Eveline Roland APRN-ACCIDENT EXAMINER [address] [address] 03/06/2025 9:20 AM SLATE TRIMMER Office Visit [facility] - Cardiology [address] [facility] [address] [place] [phone] Sussy Kaur MD [address] [address] Health Maintenance Due Date Last Done Comments [...] MARY COMPLETE Routine 12/19/2024 10: 06 AM SLATE TRIMMER Cerebrovascular accident (CVA), unspecified mechanism (HCC) GLUCOSE - POINT OF CARE Routine 12/19/2024 8:01 AM SLATE TRIMMER CBC W/O DIFFERENTIAL Routine 12/19/2024 7:55 AM SLATE TRIMMER Cerebrovascular accident (CVA), unspecified mechanism (HCC) BASIC METABOLIC PANEL (CALCIUM TOTAL) Routine 12/19/2024 7:55 AM SLATE TRIMMER Cerebrovascular accident (CVA), unspecified mechanism (HCC) GLUCOSE [...] * ECHO MARY COMPLETE (12/19/2024 10:06 AM SLATE TRIMMER) TR pk ja 244 cm/s [facility] CV [employer] PACS Anatomical Region Laterality Modality Ultrasound 12/19/2024 9:09 AM SLATE TRIMMER Narrative 12/25/2024 11:33 AM SLATE TRIMMER Summary * Left ventricular systolic function is [...] 9:09 AM Patient Status: O/P Study Site: [facility] Primary Location: [facility] EStudy Info Exam Type: ECHO MARY COMPLETE Indications I63.9 - Cerebrovascular accident (CVA), unspecified mechanism (HCC) * A complete transesophageal echo was performed using 2D, color Doppler, and spectral Doppler. Staff Referring Physician: Sussy Kaur Ordering Provider: Sussy Kaur Attending Physician: Sussy Kaur Fellow: Breonna Perez Transition Program Manager: Fior Franz Performing Physician: Edward Mcguire Complications [...] in satisfactory condition. Probe passed by the sack repairer without difficulty. Left Ventricle The left ventricle [...] 9:09 AM Patient Status: O/P Study Site: [facility] Primary Location: [facility] EStudy Info Exam Type: ECHO MARY COMPLETE Indications I63.9 - Cerebrovascular accident (CVA), unspecified mechanism (HCC) * A complete transesophageal echo was performed using 2D, color Doppler,and spectral Doppler. Staff Referring Physician: Sussy Kaur Ordering Provider: Sussy Kaur Attending Physician: Sussy Kaur Fellow: Breonna Perez Transition Program Manager: Fior Franz Performing Physician: Edward Mcguire Complications [...] - POINT OF CARE (12/19/2024 8:01 AM [facility]) Only the most recent of7 resultswithin the time period is included. Glucose WB/POC 102(H) 70 - 99 mg/dL 12/19/2024 8:06 AM [facility] Specimen Type Venous 12/19/2024 8:06 AM [facility] Blood BLOOD SPECIMEN / Unknown 12/19/2024 8:01 AM SLATE TRIMMER 12/19/2024 8:06 AM [facility] Sussy Kaur MD LAB - POINT OF CARE ORDERAB LES Final Result [facility] [address] [place] [address], [facility] [phone] * CBC W/O DIFFERENTIAL (12/19/2024 7:55 AM SLATE TRIMMER) Only the most recent of3 resultswithin the time period is included. [facility] WBC 7.5 4.0 - 10.7 x10E9/L 12/19/2024 8:13 AM [facility] RBC Count 4.44 3.90 - 5.20 x10E12/L 12/19/2024 8:13 AM [facility] Hemoglobin 12.6 11.9 - 15.8 g/dL 12/19/2024 8:13 AM [facility] Hematocrit 38.3 34.8 - 46.1 % 12/19/2024 8:13 AM [facility] MCV 86.3 80.0 - 98.0 fL 12/19/2024 8:13 AM [facility] MCH 28.4 26.7 - 33.6 pg 12/19/2024 8:13 AM [facility] MCHC 32.9 31.7 - 36.3 g/dL 12/19/2024 8:13 AM [facility] RDW-CV 13.7 11.3 - 14.8 % 12/19/2024 8:13 AM [facility] Platelet Count 320 150 - 420 x10E9/L 12/19/2024 8:13 AM [facility] MPV 9.6 7.8 - 11.4 fL 12/19/2024 8:13 AM [facility] Blood BLOOD SPECIMEN / Unknown Venipuncture / Unknown 12/19/2024 7:55 AM SLATE TRIMMER 12/19/2024 8:10 AM [facility] us Sussy Kaur MD LAB - HEMATOLOGY ORDERABLES Final Result [address] [address], [facility] [phone] * (ABNORMAL) BASIC METABOLIC PANEL (CALCIUM TOTAL) (12/19/2024 7:55 AM SLATE TRIMMER) Only the most recent of3 resultswithin the time period is included. [facility] BUN 13 7 - 26 mg/dL 12/19/2024 8:43 AM [facility] Creatinine 0.50(L) 0.56 - 0.96 mg/dL 12/19/2024 8:43 AM [facility] Sodium 140 136 - 145 mmol/L 12/19/2024 8:43 AM [facility] Potassium 4.2 3.5 - 4.5 mmol/L 12/19/2024 8:43 AM [facility] Chloride 107 98 - 107 mmol/L 12/19/2024 8:43 AM [facility] CO2 25 22 - 29 mmol/L 12/19/2024 8:43 AM [facility] Glucose 94 70 - 99 mg/dL 12/19/2024 8:43 AM [facility] Calcium 9.2 8.4 - 10.2 mg/dL 12/19/2024 8:43 AM [facility] Anion Gap 8 6 - 16 12/19/2024 8:43 AM [facility] BUN/Creatinine Ratio 26(H) 7 - 23 12/19/2024 8:43 AM [facility] Osmolality Calculated 290 275 - 295 mOsm/kg 12/19/2024 8:43 AM [facility] eGFR by CKD-EPI >90 >=90 mL/min/1.7 3 m2 12/19/2024 8:43 AM [facility] Comment:Estimated Glomerular Filtration Rate (eGFR) calculated using the CKD-EPI Creatinine Equation (2020), per the National Kidney Foundation and [place] Society of Nephrology recommendations. Blood BLOOD SPECIMEN / Unknown Venipuncture / Unknown 12/19/2024 7:55 AM SLATE TRIMMER 12/19/2024 8:10 AM [facility] us Sussy Kaur MD LAB - CHEMISTRY ORDERABLES Final Result [facility] [address] [place] [address], [facility] [phone] * HEMOGLOBIN A1C (11/16/2024 4:45 AM CDT) Only the most recent of2 resultswithin the time period is included. Hemoglobin A1c 5.6 <=5.6 % 11/16/2024 8:51 AM CDT [facility] Estimated Average Glucose 114 mg/dL 11/16/2024 8:51 AM CDT [facility] Comment: HbA1c Interpretation: Normal : < 5.7% Pre-diabetes: 5.7-6.4% Diabetes: Equal to or greater than 6.5% Test results diagnostic of diabetes should be repeated for confirmation. Treatment target values recommended by ADA and other clinical organizations should be used to evaluate metabolic control in patients. Reference: [place] Diabetes Association, Standards of Care in Diabetes -2020 In patients 70 years and older consider HbA1c target range of 7.0-7.5% (Reference: Ko Escoto et al. JAMDA. 2012) The Sebia assay for the measurement of HbA1c is a National Glycohemoglobin Standardization Program (NGSP) certified method. Blood BLOOD SPECIMEN / Unknown Venipuncture / Unknown 11/16/2024 4:45 AM CDT 11/16/2024 5:20 AM CDT Jose Hill DOCK HAND-ACCIDENT EXAMINER LAB - CHEMISTRY ORDERABLE S Final Result [facility] [address] [place] [address], [facility] [phone] * CT HEAD NON CONTRAST (11/15/2024 5:08 PM CDT) Anatomical Region Laterality Modality Head Computed Tomogra phy 11/15/2024 7:27 PM CDT Impressions 11/15/2024 8:38 PM CDT IMPRESSION: 1.No acute intracranial hemorrhage, midline shift, or significant mass effect. Report was dictated by Jamison Camp MD, ([facility] resident) 11/15/2024 7:27 PM > Dictated by Jamison Camp MD 11/15/2024 7:27 PM > Dictated by Dining Room Maid I, Ana Laura Mahan MD have personally [...] MD 11/15/2024 7:27 PM > Dictated by Dining Room Maid IAna Laura MD have personally reviewed and [...] LVOT pk grad 3.637 mmHg [facility] pk ja 95.356 cm/s [facility] PACS LVOT VTI 19.431 cm [facility] CV [facility] I PACS RV-dow basal diam 2.745 cm [facility] PACS RVIDd 3.357 cm [facility] I PACS RVOT diam Doppler 1.999 cm SS M CV [facility] RVOT pk ja 87.224 cm/s [facility] PACS RVOT VTI 16.789 cm [facility] I PACS LA size 4.129 cm [facility] I PACS LA vol BP 46.15 ml [facility] I PACS RA area 10.25 cm [facility] PACS AV area pk ja 2.95 cm [facility] AV area cont VTI 3.027 cm [facility] AV pk grad 6.844 mmHg [facility] CV [facility] PACS AV mn grad 3.358 mmHg [facility] CV [facility] PACS AV pk ja 130.805 cm/s [facility] I PACS AV VTI 25.982 cm [facility] I PACS MV A pk ja 73.419 cm/s [facility] PACS MV E pk ja 83.948 cm/s [facility] PACS MV E' lateral ja 5.922 cm/s SS M [facility] MV mn grad 0.801 mmHg [facility] CV [facility] PACS MV VTI 20.203 cm [facility] I PACS PV pk ja 99.299 cm/s [facility] I PACS PV VTI 16.439 cm [facility] I PACS TAPSE 1.91 cm [facility] I PACS Ascending aorta 3.435 cm [facility] IVC Diam Expiration 1.644 cm [facility] Sinus of Valsalva [...] 10:02 AM Patient Status: I/P Study Site: [facility] Primary Location: [facility] EStudy Info Technical Quality: Technically Difficult [...] Provider: Dustin Singh Attending Physician: Dustin Singh Transition Program Manager: Candelario Enriquez Left Ventricle The left ventricle [...] 10:02 AM Patient Status: I/P Study Site: [facility] Primary Location: [facility] Info Technical Quality: Technically Difficult Exam Type: ECHO COMPLETE W CONTRAST W BUBBLE STUDY Indications I63.9 - Cerebrovascular accident (CVA), unspecified mechanism (HCC) Procedure(s) * A complete 2D, color Doppler, spectral Doppler, and M-Modetransthoracic echocardiogram was performed. Contrast/Agitated Saline Contrast / Saline: Definity Amount: 1.00 ml Administered By: Candelraio Enriquez Reaction to Contrast: no Contrast / Saline: Agitated Saline Amount: 10.00 ml Reaction to Contrast: no Reason for Technically Difficult Study: body habitus, poor acoustic windows, lung interference Staff Referring Physician: Dustin Singh Ordering Provider: Dustin Singh Attending Physician: Dustin Singh Transition Program Manager: Candelario Enriquez Left Ventricle The left ventricle [...] Sensitive <3 <=14 ng/L 11/15/2024 12:07 AM [facility] Delta Troponin I HS 11/15/2024 12:07 AM [facility] Comment:Delta value intentio sandor not calculated. Baseline to 1 hour specimen collection interval exceeded. Blood BLOOD SPECIMEN / Unknown Venipuncture / Unknown 11/14/2024 11:10 PM CDT 11/14/2024 11:33 PM CDT us Dustin Singh MD LAB - CHEMISTRY ORDERABLES Final Result [facility] [address] [place] [address], [facility] [phone] * LIPID PROFILE (11/14/2024 11:10 PM CDT) Pathologist [facility] Cholesterol Total 138 <200 mg/dL 11/15/2024 12:02 AM [facility] HDL 48 >40 mg/dL 11/15/2024 12:02 AM [facility] Comment: ATP III Classification of HDL Cholesterol: <40 mg/dL: Considered a major risk factor. >60 mg/dL: Considered a negative risk factor. LDL Calculated 72 <100 mg/dL 11/15/2024 12:02 AM [facility] Comment: ATP III Classification of LDL Cholesterol: <100 mg/dL: Optimal 100 - 129 mg/dL: Near Optimal/Above Optimal 130 - 159 mg/dL: Borderline High 160 - 189 mg/dL: High >190 mg/dL: Very High LDL is calculated using the Friedewald equation. Triglycerides 88 <150 mg/dL 11/15/2024 12:02 AM [facility] Comment: ATP III Classification of Triglycerides: <150 mg/dL: Normal 150 - 199 mg/dL: Borderline High 200 - 400 mg/dL: High >500 mg/dL: Very High Blood BLOOD SPECIMEN / Unknown Venipuncture / Unknown 11/14/2024 11:10 PM CDT 11/14/2024 11:33 PM CDT us Dustin Singh MD LAB - CHEMISTRY ORDERABLES Final Result [address] [address], [place] [phone] * TROPONIN-I HIGH SENSITIVE BASELINE + 1HR (11/14/2024 9:27 PM CDT) Troponin I High Sensitive <3 <=14 ng/L 11/14/2024 10:44 PM CDT [facility] Blood BLOOD SPECIMEN / Unknown Venipuncture / Unknown 11/14/2024 9:27 PM CDT 11/14/2024 10:04 PM CDT Dustin Singh MD LAB - CHEMISTRY ORDERABLES Final Result Performing Organization Address City/[facility]/ZIP Co de Phone Number [address] [address], [place] [phone] * XR CHEST 1VW PORTABLE (11/14/2024 8:37 [...] TROPONIN-I HIGH SENSITIVE (11/14/2024 8:14 PM CDT) [facility] Troponin I High Sensitive <3 <=14 ng/L 11/14/2024 8:56 PM CDT [facility] Blood BLOOD SPECIMEN / Unknown Venipuncture / Unknown 11/14/2024 8:14 PM CDT 11/14/2024 8:20 PM CDT Result [facility] Ayden Alba MD LAB - CHEMISTRY ORDERABLES F inal Result [address] [address], [facility] [phone] * PTT (11/14/2024 8:14 PM CDT) [facility] APTT 29.6 23.0 - 38.4 Seconds 11/14/2024 8:44 PM CDT [facility] Comment:Suggested therapeuti c range for full dose I.V. unfractionated heparin therapy for venous thromboembolism is 71 to 109 seconds. Blood BLOOD SPECIMEN / Unknown Venipuncture / Unknown 11/14/2024 8:14 PM CDT 11/14/2024 8:20 PM CDT Result [facility] Ayden Alba MD LAB - COAGULATION ORDERABLES Final Result Performing Organization Address City/[facility]/ZIP Co de Phone Number [address] [address], [facility] [phone] * PT-INR (11/14/2024 8:14 PM CDT) [facility] PT 12.6 12.1 - 14.8 Seconds 11/14/2024 8:44 PM [facility] INR 1.0 See Comment 11/14/2024 8:44 PM [facility] Comment:The suggested therap eutic range for standard coumadin (warfarin) therapy is an INR of 2.0-3.0. For high-risk patients (Mechanical Mitral Valve Prosthesis, etc.), the suggested prophylactic therapeutic range is an INR of 2.5-3.5. Blood BLOOD SPECIMEN / Unknown Venipuncture / Unknown 11/14/2024 8:14 PM CDT 11/14/2024 8:20 PM CDT us Ayden Alba MD LAB - COAGULATION ORDERABLES Final Result [facility] [address] [place] [address], [facility] [phone] * CBC W AUTO DIFFERENTIAL (11/14/2024 8:14 PM CDT) Pathologist [facility] WBC 7.4 4.0 - 10.7 x10E9/L 11/14/2024 8:28 PM [facility] RBC Count 4.34 3.90 - 5.20 x10E12/L 11/14/2024 8:28 PM [facility] Hemoglobin 12.5 11.9 - 15.8 g/dL 11/14/2024 8:28 PM [facility] Hematocrit 37.9 34.8 - 46.1 % 11/14/2024 8:28 PM [facility] MCV 87.3 80.0 - 98.0 fL 11/14/2024 8:28 PM [facility] MCH 28.8 26.7 - 33.6 pg 11/14/2024 8:28 PM [facility] MCHC 33.0 31.7 - 36.3 g/dL 11/14/2024 8:28 PM [facility] RDW-CV 13.6 11.3 - 14.8 % 11/14/2024 8:28 PM CDT [facility] Platelet Count 282 150 - 420 x10E9/L 11/14/2024 8:28 PM [facility] MPV 10.1 7.8 - 11.4 fL 11/14/2024 8:28 PM [facility] Neutrophil % 66.5 41.0 - 74.0 % 11/14/2024 8:28 PM [facility] Lymphocyte % 24.7 17.0 - 47.0 % 11/14/2024 8:28 PM [facility] Monocyte % 5.4 3.0 - 11.0 % 11/14/2024 8:28 PM [facility] Eosinophil % 3.0 0.0 - 7.0 % 11/14/2024 8:28 PM [facility] Basophil % 0.1 0.0 - 1.6 % 11/14/2024 8:28 PM [facility] Immature Granulocytes % 0.3 0.0 - 1.0 % 11/14/2024 8:28 PM [facility] Neutrophil Absolute 4.89 1.60 - 7.50 x10E9/L 11/14/2024 8:28 PM [facility] Lymphocyte Absolute 1.82 1.00 - 4.40 x10E9/L 11/14/2024 8:28 PM [facility] Monocyte Absolute 0.40 0.15 - 1.00 x10E9/L 11/14/2024 8:28 PM [facility] Eosinophil Absolute 0.22 0.00 - 0.60 x10E9/L 11/14/2024 8:28 PM [facility] Basophil Absolute 0.01 0.00 - 0.13 x10E9/L 11/14/2024 8:28 PM [facility] Blood BLOOD SPECIMEN / Unknown Venipuncture / Unknown 11/14/2024 8:14 PM CDT 11/14/2024 8:[address] [facility] us Ayden Alba MD LAB - HEMATOLOGY ORDERABLES Final Result [facility] [address] [place] [address] [phone] * (ABNORMAL) COMPREHENSIVE METABOLIC PANEL (11/14/2024 8:[address] [facility]) [facility] Signature BUN 8 7 - 26 mg/dL 11/14/2024 8:52 PM [facility] Creatinine 0.55(L) 0.56 - 0.96 mg/dL 11/14/2024 8:52 PM [facility] Sodium 140 136 - 145 mmol/L 11/14/2024 8:52 PM [facility] Potassium 3.7 3.5 - 4.5 mmol/L 11/14/2024 8:52 PM [facility] Chloride 108(H) 98 - 107 mmol/L 11/14/2024 8:52 PM [facility] CO2 25 22 - 29 mmol/L 11/14/2024 8:52 PM [facility] Glucose 105(H) 70 - 99 mg/dL 11/14/2024 8:52 PM [facility] Calcium 9.3 8.4 - 10.2 mg/dL 11/14/2024 8:52 PM [facility] Protein Total 6.7 6.0 - 8.3 g/dL 11/14/2024 8:52 PM [facility] Albumin 3.7 3.4 - 5.0 g/dL 11/14/2024 8:52 PM [facility] Bilirubin Total 0.3 0.2 - 1.2 mg/dL 11/14/2024 8:52 PM [facility] Alkaline Phosphatase 150 40 - 150 U/L 11/14/2024 8:52 PM [facility] ALT 23 5 - 55 U/L 11/14/2024 8:52 PM [facility] AST 17 5 - 34 U/L 11/14/2024 8:52 PM [facility] Anion Gap 7 6 - 16 11/14/2024 8:52 PM [facility] BUN/Creatinine Ratio 15 7 - 23 11/14/2024 8:52 PM [facility] Osmolality Calculated 289 275 - 295 mOsm/kg 11/14/2024 8:52 PM [facility] Albumin/Globulin Ratio 1.2 1.1 - 2.3 11/14/2024 8:52 PM CDT [facility] eGFR by CKD-EPI >90 >=90 mL/min/1.7 3 m2 11/14/2024 8:52 PM CDT [facility] Comment:Estimated Glomerular Filtration Rate (eGFR) calculated using the CKD-EPI Creatinine Equation (2020), per the National Kidney Foundation and [place] [employer] Neph[employer] recommendations. Blood BLOOD SPECIMEN / Unknown Venipuncture / Unknown 11/14/2024 8:14 PM CDT 11/14/2024 8:20 PM CDT us Ayden Alba MD LAB - CHEMISTRY ORDERABLES F inal Result [facility] [address] [place] [address], [facility] [phone] * CT ANGIO BRAIN NECK STROKE (11/14/2024 [...] without significant focal stenosis. 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 The remaining right [...] Final Result from Last 3 Months Insurance [facility] Advance Directives * Full Code (Latest Code Status on File) Date Activated Date Inactivated Comments 11/14/2024 8:18 PM 11/16/2024 7:33 PM Care Teams [employer] Plasma Etcher Relationship Specialty Start Date End Date Herb Tate, DOCK HAND-ACCIDENT EXAMINER [address] [place] [id number] PCP - General Nurse Practitioner 11/14/24
--- OUTSIDE RECORDS SUMMARY | 2025-01-21 09:38 | XMS_ITS | Clinical Summary ---
Author Organization [facility] Address Formerly [facility] [place] [address] Care Team Providers Care Cold Header Name Role Phone Rhianna Shepard Primary Care Provider [phone] Allergies Active Allergy Reactions Criticality Noted Date [...] Most Recently Relevant to Health Maintenance [place] [address] [place] [address] Care Teams Cold Header Relationship Specialty Start Date End Date Rhianna Shepard PA [address] [place] [address] PCP - General PHYSICIAN [employer] 11/18/19
== END 2025-01-21 08:59 | disposition home or self-care (01) ==
PROVIDERS: PCP Nurse Practitioner Family; Visit Provider Nurse Practitioner Family
DX: J18.9 Pneumonia, unspecified organism (principal)
CPT/HCPCS: 71046

== ENCOUNTER 2025-01-27 13:19 | Emergency (ER) | payer OTHER, SELFPAY ==
--- OUTSIDE RECORDS SUMMARY | 2025-01-26 07:28 | XMS_ITS | Encounter Summary ---
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 attack) MAGNESIUM BLOOD Routine 01/27/2025 8:34 AM PLANNING ADVISOR PFO (patent foramen ovale) (HCC) History of TIA (transient ischemic attack) GLUCOSE - POINT OF CARE Routine 01/27/2025 7:32 AM PLANNING ADVISOR CBC W/O DIFFERENTIAL AM Draw 01/27/2025 2:26 AM PLANNING ADVISOR PFO (patent foramen ovale) (HCC) History of TIA (transient ischemic attack) GLUCOSE - POINT OF CARE Routine 01/26/2025 9:32 PM PLANNING ADVISOR GLUCOSE - POINT OF CARE Routine 01/26/2025 5:20 PM PLANNING ADVISOR ECHO LIMITED W CONTRAST W BUBBLE STUDY PENDING DISCHARGE 01/26/2025 4:34 PM PLANNING ADVISOR PFO (patent foramen ovale) (HCC) History of TIA (transient ischemic attack) CCL RIGHT HEART CATH Routine 01/26/2025 11:57 AM PLANNING ADVISOR PFO (patent foramen ovale) (HCC) History of TIA (transient ischemic attack) Procedure Note - Rayshawn Williamson MD - 01/26/2025 11:57 AM CSTThis note is in progress. Successful ICE guided closure of PFO with 48 mm Altheimer ASD closuredevice. There is no pulmonary hypertension.(Mean PA 18 mm Hg, PCWP 10 mm Hg,C.O 5.7 L/min, C.I 2.47 L/min/m2) Findings Reason for Procedure 59 yo female with PMH COPD (no prior PFT), DMT2, Obesity, Headaches, Past tobacco use, GERD, Mixed HLD, PFO and Stroke 11/2024 who presents for RHC and PFO closure. Procedure Details Estimated Blood Loss: 15 mL PFO/ASD Access The right femoral vein was accessed using the modified Seldinger technique. A 11 Fr Rubicon Mediath 11Fr X 10Cm sheath was inserted. A second site was then accessed via the right femoral vein. A 16 Fr Shth Intro 33Cm 6.1Mm 16Fr Altheimer Dryseal sheath was inserted. PFO/ASD Patient Prep After informed consent was obtained and a timeout was performed, the patient was prepped and draped using standard sterile technique. Moderate sedation was used during the procedure. PFO Visualization The ICE catheter was positioned inside the RA. PFO Delivery A catheter was advanced to the right atrium over a guidewire. Therapeutic ACT was maintained throughout the procedure. A the MP catheter and sheath were removed. The delivery system was advanced to the left atrium and guidewire was removed. The closure device was positioned into the left atrium, the left atrial disc was deployed, the device was pulled back against the atrial septum and the right atrial disc was exposed. The position was verified using ICE imaging. There was adequate tissue in-between discs. We were unable to close the PFO with 30 mm and 36 mm gore device due to thick lipomatous hypertrophy of septum in the superior aspect which instablity of superior aspect of the disc due to lack of anchor. This was noted on displaced of the device on pushing the device. Finally had to upgrade to 48 mm device which was much more stable. Vascular Access Management The remaining catheters and sheaths were removed. Closure was achieved using a figure of eight suture and manual pressure after removal of all catheters, wires, and sheaths. Two perclose devices used for closure of 16 czech access site in the right common femoral vein. Vascade used for closure of 11 czech entry point in the right common femoral vein. Right Heart Cath Cardiac output measurements were performed using the Jahaira method. The catheter was inserted into the right femoral vein. There is no pulmonary hypertension. Recommendations - Recommend dual anti platelet therapy for at least 6 months. - Antibiotics prophylaxis before dental procedures CCL PATENT FORAMEN OVALE CLOSURE Routine 01/26/2025 11:57 AM PLANNING ADVISOR PFO (patent foramen ovale) (HCC) History of TIA (transient ischemic attack) Procedure Note - Rayshawn Williamson MD - 01/26/2025 11:57 AM CSTThis note is in progress. Successful ICE guided closure of PFO with 48 mm Altheimer ASD closuredevice. There is no pulmonary hypertension.(Mean PA 18 mm Hg, PCWP 10 mm Hg,C.O 5.7 L/min, C.I 2.47 L/min/m2) Findings Reason for Procedure 59 yo female with PMH COPD (no prior PFT), DMT2, Obesity, Headaches, Past tobacco use, GERD, Mixed HLD, PFO and Stroke 11/2024 who presents for RHC and PFO closure. Procedure Details Estimated Blood Loss: 15 mL PFO/ASD Access The right femoral vein was accessed using the modified Seldinger technique. A 11 Fr Shth 11Fr X 10Cm sheath was inserted. A second site was then accessed via the right femoral vein. A 16 Fr Shth Intro 33Cm 6.1Mm 16Fr Altheimer Dryseal sheath was inserted. PFO/ASD Patient Prep After informed consent was obtained and a timeout was performed, the patient was prepped and draped using standard sterile technique. Moderate sedation was used during the procedure. PFO Visualization The ICE catheter was positioned inside the RA. PFO Delivery A catheter was advanced to the right atrium over a guidewire. Therapeutic ACT was maintained throughout the procedure. A the MP catheter and sheath were removed. The delivery system was advanced to the left atrium and guidewire was removed. The closure device was positioned into the left atrium, the left atrial disc was deployed, the device was pulled back against the atrial septum and the right atrial disc was exposed. The position was verified using ICE imaging. There was adequate tissue in-between discs. We were unable to close the PFO with 30 mm and 36 mm gore device due to thick lipomatous hypertrophy of septum in the superior aspect which instablity of superior aspect of the disc due to lack of anchor. This was noted on displaced of the device on pushing the device. Finally had to upgrade to 48 mm device which was much more stable. Vascular Access Management The remaining catheters and sheaths were removed. Closure was achieved using a figure of eight suture and manual pressure after removal of all catheters, wires, and sheaths. Two perclose devices used for closure of 16 czech access site in the right common femoral vein. Vascade used for closure of 11 czech entry point in the right common femoral vein. Right Heart Cath Cardiac output measurements were performed using the Jahaira method. The catheter was inserted into the right femoral vein. There is no pulmonary hypertension. Recommendations - Recommend dual anti platelet therapy for at least 6 months. - Antibiotics prophylaxis before dental procedures BLOOD TYPE VERIFICATION Routine 01/26/2025 9:33 AM PLANNING ADVISOR GLUCOSE - POINT OF CARE Routine 01/26/2025 8:18 AM PLANNING ADVISOR TYPE + SCREEN PANEL Routine 01/26/2025 8 :06 AM PLANNING ADVISOR CBC W/O DIFFERENTIAL JESSICA 01/26/2025 8:06 AM PLANNING ADVISOR PFO (patent foramen ovale) (HCC) History of TIA (transient ischemic attack) BASIC METABOLIC PANEL (CALCIUM TOTAL) JESSICA 01/26/2025 8:06 AM PLANNING ADVISOR PFO (patent foramen ovale) (HCC) History of TIA (transient ischemic attack) documented in this encounter Results * MAGNESIUM BLOOD (01/27/2025 8:34 AM PLANNING ADVISOR) Magnesium 1.7 1.6 - 2.6 mg/dL 01/27/2025 9:15 AM [facility] Blood BLOOD SPECIMEN / Unknown Lab Venipuncture / Unknown 01/27/2025 8:34 AM PLANNING ADVISOR 01/27/2025 8:46 AM PLANNING ADVISOR Ebony Gill BUCKRAM SEWER-SENIOR MANAGER LAB - CHEMISTRY ORDERA BLES Final Result Performing Organization Address [facility]/State/ZIP Co de Phone Number [address] [address], [facility] [phone] * (ABNORMAL) BASIC METABOLIC PANEL (CALCIUM TOTAL) (01/27/2025 8:34 AM PLANNING ADVISOR) BUN 9 7 - 26 mg/dL 01/27/2025 9:15 AM PLANNING ADVISOR [facility] Creatinine 0.52(L) 0.56 - 0.96 mg/dL 01/27/2025 9:15 AM PLANNING ADVISOR [facility] Sodium 137 136 - 145 mmol/L 01/27/2025 9:15 AM PLANNING ADVISOR [facility] Potassium 4.1 3.5 - 4.5 mmol/L 01/27/2025 9:15 [address] [facility] Chloride 106 98 - 107 mmol/L 01/27/2025 9:15 AM [facility] CO2 23 22 - 29 mmol/L 01/27/2025 9:15 AM [facility] Glucose 200(H) 70 - 99 mg/dL 01/27/2025 9:15 AM [facility] Calcium 8.9 8.4 - 10.2 mg/dL 01/27/2025 9:15 AM [facility] Anion Gap 8 6 - 16 01/27/2025 9:15 AM [facility] BUN/Creatinine Ratio 17 7 - 23 01/27/2025 9:15 AM [facility] Osmolality Calculated 288 275 - 295 mOsm/kg 01/27/2025 9:15 AM [facility] eGFR by CKD-EPI >90 >=90 mL/min/1.7 3 m2 01/27/2025 9:15 AM [facility] Comment:Estimated Glomerular Filtration Rate (eGFR) calculated using the CKD-EPI Creatinine Equation (2020), per the National Kidney Foundation and [place] [employer] recommendations. Blood BLOOD SPECIMEN / Unknown Lab Venipuncture / Unknown 01/27/2025 8:34 AM PLANNING ADVISOR 01/27/2025 8:46 AM PLANNING ADVISOR us Ebony Gill APRN-SENIOR MANAGER LAB - CHEMISTRY ORDERA BLES Final Result [facility] [address] [place] [address], [facility] [phone] * (ABNORMAL) GLUCOSE - POINT OF CARE (01/27/2025 7:32 AM PLANNING ADVISOR) Glucose WB/POC 162(H) 70 - 99 mg/dL 01/27/2025 7:54 AM [facility] Specimen Type Arterial/C apillary 01/27/2025 7:54 AM [facility] Blood BLOOD SPECIMEN / Unknown 01/27/2025 7:32 AM PLANNING ADVISOR 01/27/2025 7:54 AM PLANNING ADVISOR us Sussy Kaur MD LAB - POINT OF CARE ORDERAB LES Final Result [facility] [address] [id number] [place] [address], [facility] [phone] * (ABNORMAL) CBC W/O DIFFERENTIAL (01/27/2025 2:26 AM PLANNING ADVISOR) WBC 8.5 4.0 - 10.7 x10E9/L 01/27/2025 3:03 AM [facility] RBC Count 4.09 3.90 - 5.20 x10E12/L 01/27/2025 3:03 AM [facility] Hemoglobin 11.3(L) 11.9 - 15.8 g/dL 01/27/2025 3:03 AM [facility] Hematocrit 36.1 34.8 - 46.1 % 01/27/2025 3:03 AM [facility] MCV 88.3 80.0 - 98.0 fL 01/27/2025 3:03 AM [facility] MCH 27.6 26.7 - 33.6 pg 01/27/2025 3:03 AM [facility] MCHC 31.3(L) 31.7 - 36.3 g/dL 01/27/2025 3:03 AM [facility] RDW-CV 13.8 11.3 - 14.8 % 01/27/2025 3:03 AM [facility] Platelet Count 176 150 - 420 x10E9/L 01/27/2025 3:03 AM [facility] MPV 11.4 7.8 - 11.4 fL 01/27/2025 3:03 AM [facility] Blood BLOOD SPECIMEN / Unknown Lab Venipuncture / Unknown 01/27/2025 2:26 AM PLANNING ADVISOR 01/27/2025 2:56 AM PLANNING ADVISOR Ebony Gill BUCKRAM SEWER-SENIOR MANAGER LAB - HEMATOLOGY ORDER WESLEY Final Result [address] [address], [facility] [phone] * (ABNORMAL) GLUCOSE - POINT OF CARE (01/26/2025 9:32 PM PLANNING ADVISOR) Glucose WB/POC 184(H) 70 - 99 mg/dL 01/26/2025 9:37 PM PLANNING ADVISOR [facility] Specimen Type Arterial/C apillary 01/26/2025 9:37 PM PLANNING ADVISOR [facility] Blood BLOOD SPECIMEN / Unknown 01/26/2025 9:32 PM PLANNING ADVISOR 01/26/2025 9:37 PM PLANNING ADVISOR us Sussy Kaur MD LAB - POINT OF CARE ORDERAB LES Final Result [address] [address], [place] [phone] * (ABNORMAL) GLUCOSE - POINT OF CARE (01/26/2025 5:20 PM PLANNING ADVISOR) Glucose WB/POC 185(H) 70 - 99 mg/dL 01/26/2025 5:23 PM PLANNING ADVISOR [facility] Specimen Type Arterial/C apillary 01/26/2025 5:23 PM PLANNING ADVISOR [facility] Blood BLOOD SPECIMEN / Unknown 01/26/2025 5:20 PM PLANNING ADVISOR 01/26/2025 5:23 PM PLANNING ADVISOR us Sussy Kaur MD LAB - POINT OF CARE ORDERAB LES Final Result [address] [address], [place] [phone] * ECHO LIMITED W CONTRAST W BUBBLE STUDY (01/26/2025 4:34 PM PLANNING ADVISOR) Myocardial strain charge 2 unitless SSM CV FUJI PACS LV EDV A2C 101 ml SSM CV FU JI PACS LV EDV A4C 131 ml SSM CV FU JI PACS LV ESV A2C 25 ml SSM CV FU JI PACS LV ESV A4C 27 ml SSM CV FU JI PACS IVSd 2D 1.36 cm SSM CV FUJ I PACS LVIDd 4.52 cm SSM CV FUJ I PACS LVIDs 2.5 cm SSM CV FUJ I PACS LVPWd 1.31 cm SSM CV FUJ I PACS LV A2C EF 75.248 % SSM CV FUJ I PACS LV A4C EF 79.389 % SSM CV FUJ I PACS LV biplane EF 76.174 % SSM CV FUJI PACS RVIDd 2.94 cm SSM CV FUJ I PACS Anatomical Region Laterality Modality Ultrasound 01/26/2025 3:46 PM PLANNING ADVISOR Narrative 01/26/2025 8:32 PM PLANNING ADVISOR Summary * Extremely TDS despite great effort. Pt unable to reposition s/p PFO closure. * Normal left ventricular systolic function. * ASD occluder device seen in interatrial septum. * Technically difficult bubble study but no shunt seen. Patient Info Name: Palma Frost Age: 59 years : 1965 Gender: Female Ht: 66 in Wt: 281 lb BSA: 2.51 m2 HR: 81 bpm BP: 134 / 93 mmHg Heart Rhythm: Sinus Rhythm Exam Date: 01/26/2025 3:46 PM Exam Room: 816 Patient Status: MDB Study Site: [facility] Primary Location: [facility] Info Technical Quality: Technically Difficult Exam Type: ECHO LIMITED W CONTRAST W BUBBLE STUDY Indications Q21.12 - PFO (patent foramen ovale) (HCC) Z86.73 - History of TIA (transient ischemic attack) Procedure(s) * A limited 2D and color Doppler transthoracic echocardiogram was performed with a Bubble Study and an Ultrasound Enhancing Agent (UEA). Contrast/Agitated Saline Contrast / Saline: Agitated Saline Amount: 10.00 ml Administered By: Derik Kiser Reaction to Contrast: no Contrast / Saline: Definity Amount: 3.00 ml Administered By: Derik Kiser Reaction to Contrast: no Reason for Technically Difficult Study: patient supine, restricted mobility, lung interference, poor acoustic windows Staff Referring Physician: Ebony Glil Ordering Provider: Ebony Gill Attending Physician: Ebony Gill Android Architect: Derik Kiser Measurements Ventricles Name Value Normal LV Dimensions 2D/MM IVS Diastolic Thickness (2D) 1.4 cm 0.6-0.9 LVID Diastole (2D) 4.5 cm 3.8-5.2 LVPW Diastolic Thickness (2D) 1.3 cm 0.6-0.9 LVID Systole (2D) 2.5 cm 2.2-3.5 LV Mass (2D Cubed) 233 g 67-162 LV Mass Index (2D Cubed) 93 g/m2 43-95 Relative Wall Thickness (2D) 0.58 <=0.42 LV Fractional Shortening/Ejection Fraction 2D/MM LV Fractional Shortening (2D) 45 % 27-45 LV EF (2D Teicholz) 76 % 54-74 LV Diastolic Volume (4C MOD) 131 ml LV EF (4C MOD) 79 % LV Diastolic Volume (2C MOD) 101 ml LV EF (2C MOD) 75 % LV Diastolic Volume (BP MOD) 115 ml 46-106 LV Diastolic Volume Index (BP MOD) 46 ml/m2 29-61 LV Systolic Volume (BP MOD) 27 ml 14-42 LV Systolic Volume Index (BP MOD) 11 ml/m2 8-24 LV EF (BP MOD) 76 % 54-74 LV Diastolic Length (4C) 8.3 cm LV Systolic Length (4C) 7.0 cm LV SV (BP MOD) 88 ml RV Dimensions 3D/2D/MM RVID Diastole (2D) 2.9 cm 2.5-3.5 Report Signatures Finalized by Palma Larson MD on 01/26/2025 08:32 PM Procedure Note Palma Larson MD - 01/26/2025 Summary * Extremely TDS despite great effort. Pt unable to reposition s/p PFO closure. * Normal left ventricular systolic function. * ASD occluder device seen in interatrial septum. * Technically difficult bubble study but no shunt seen. Patient Info Name: Palma Frost Age: 59 years : 1965 Gender: Female Ht: 66 in Wt: 281 lb BSA: 2.51 m2 HR: 81 bpm BP: 134 / 93 mmHg Heart Rhythm: Sinus Rhythm Exam Date: 01/26/2025 3:46 PM Exam Room: [facility] Patient Status: MDB Study Site: [facility] Primary Location: [facility] EStudy Info Technical Quality: Technically Difficult Exam Type: ECHO LIMITED W CONTRAST W BUBBLE STUDY Indications Q21.12 - PFO (patent foramen ovale) (HCC) Z86.73 - History of TIA (transient ischemic attack) Procedure(s) * A limited 2D and color Doppler transthoracic echocardiogram wasperformed with a Bubble Study and an Ultrasound Enhancing Agent (UEA). Contrast/Agitated Saline Contrast / Saline: Agitated Saline Amount: 10.00 ml Administered By: Derik Kiser Reaction to Contrast: no Contrast / Saline: Definity Amount: 3.00 ml Administered By: Derik Kiser Reaction to Contrast: no Reason for Technically Difficult Study: patient supine, restricted mobility, lung interference, poor acoustic windows Staff Referring Physician: Ebony Gill Ordering Provider: Ebony Gill Attending Physician: Ebony Gill Android Architect: Derik Kiser Measurements Ventricles Name Value Normal LV Dimensions 2D/MM IVS Diastolic Thickness (2D) 1.4 cm 0.6-0.9 LVID Diastole (2D) 4.5 cm 3.8-5.2 LVPW Diastolic Thickness (2D) 1.3 cm 0.6-0.9 LVID Systole (2D) 2.5 cm 2.2-3.5 LV Mass (2D Cubed) 233 g 67-162 LV Mass Index (2D Cubed) 93 g/m2 43-95 Relative Wall Thickness (2D) 0.58 <=0.42 LV Fractional Shortening/Ejection Fraction 2D/MM LV Fractional Shortening (2D) 45 % 27-45 LV EF (2D Teicholz) 76 % 54-74 LV Diastolic Volume (4C MOD) 131 ml LV EF (4C MOD) 79 % LV Diastolic Volume (2C MOD) 101 ml LV EF (2C MOD) 75 % LV Diastolic Volume (BP MOD) 115 ml 46-106 LV Diastolic Volume Index (BP MOD) 46 ml/m2 29-61 LV Systolic Volume (BP MOD) 27 ml 14-42 LV Systolic Volume Index (BP MOD) 11 ml/m2 8-24 LV EF (BP MOD) 76 % 54-74 LV Diastolic Length (4C) 8.3 cm LV Systolic Length (4C) 7.0 cm LV SV (BP MOD) 88 ml RV Dimensions 3D/2D/MM RVID Diastole (2D) 2.9 cm 2.5-3.5 Report Signatures Finalized by Palma Larson MD on 01/26/2025 08:32 PM Ebony Gill APRN-SENIOR MANAGER ECHO CUPID Final Result * BLOOD TYPE VERIFICATION (01/26/2025 9:33 AM PLANNING ADVISOR) ABO Rh A POS 01/26/2025 10:21 AM PLANNING ADVISOR [facility] B[facility] LAB Blood Bank BLOOD SPECIMEN / Unknown Venipuncture / Unknown 01/26/2025 9:33 AM PLANNING ADVISOR 01/26/2025 9:35 AM PLANNING ADVISOR Ebony Gill APRN-SENIOR MANAGER LAB - BLOOD BANK ORDER WESLEY Final Result [facility] B[facility] LAB [address] [place] [address], [place] [phone] * (ABNORMAL) GLUCOSE - POINT OF CARE (01/26/2025 8:18 AM PLANNING ADVISOR) Pathologist [facility] Glucose WB/POC 115(H) 70 - 99 mg/dL 01/26/2025 8:19 AM [facility] Specimen Type Venous 01/26/2025 8:19 AM [facility] Blood BLOOD SPECIMEN / Unknown 01/26/2025 8:18 AM PLANNING ADVISOR 01/26/2025 8:19 AM PLANNING ADVISOR Sussy Kaur MD LAB - POINT OF CARE ORDERAB LES Final Result [facility] [address] [place] [address], [place] [phone] * TYPE + SCREEN PANEL (01/26/2025 8:06 AM PLANNING ADVISOR) [facility] [address] Antibody Screen NEG 8:59 AM [facility] ABO Rh A POS 01/26/2025 8:59 AM [facility] Blood Bank BLOOD SPECIMEN / Unknown Venipuncture / Unknown 01/26/2025 8:06 AM PLANNING ADVISOR 01/26/2025 8:16 AM PLANNING ADVISOR Ebony Gill APRN-BEE LAB - BLOOD BANK ORDER WESLEY Final Result [facility] B[facility] LAB [address] [place] [address], [place] [phone] * (ABNORMAL) CBC W/O DIFFERENTIAL (01/26/2025 8:06 AM PLANNING ADVISOR) Pathologist [facility] WBC 9.1 4.0 - 10.7 x10E9/L 01/26/2025 8:58 AM [facility] RBC Count 4.59 3.90 - 5.20 x10E12/L 01/26/2025 8:58 AM [facility] Hemoglobin 12.7 11.9 - 15.8 g/dL 01/26/2025 8:58 AM [facility] Hematocrit 40.4 34.8 - 46.1 % 01/26/2025 8:58 AM [facility] MCV 88.0 80.0 - 98.0 fL 01/26/2025 8:58 AM [facility] MCH 27.7 26.7 - 33.6 pg 01/26/2025 8:58 AM [facility] MCHC 31.4(L) 31.7 - 36.3 g/dL 01/26/2025 8:58 AM [facility] RDW-CV 13.7 11.3 - 14.8 % 01/26/2025 8:58 AM [facility] Platelet Count 267 150 - 420 x10E9/L 01/26/2025 8:58 AM [facility] MPV 10.2 7.8 - 11.4 fL 01/26/2025 8:58 AM [facility] Blood BLOOD SPECIMEN / Unknown Venipuncture / Unknown 01/26/2025 8:06 AM PLANNING ADVISOR 01/26/2025 8:30 AM [facility] Ebony Gill BUCKRAM SEWER-SENIOR MANAGER LAB - HEMATOLOGY ORDER WESLEY Final Result [facility] [address] [place] [address], [facility] [phone] * (ABNORMAL) BASIC METABOLIC PANEL (CALCIUM TOTAL) (01/26/2025 8:06 AM [facility]) BUN 13 7 - 26 mg/dL 01/26/2025 9:09 AM [facility] Creatinine 0.49(L) 0.56 - 0.96 mg/dL 01/26/2025 9:09 AM [facility] Sodium 138 136 - 145 mmol/L 01/26/2025 9:09 AM [facility] Potassium 4.4 3.5 - 4.5 mmol/L 01/26/2025 9:09 AM [facility] Chloride 107 98 - 107 mmol/L 01/26/2025 9:09 AM [facility] CO2 23 22 - 29 mmol/L 01/26/2025 9:09 AM [facility] Glucose 114(H) 70 - 99 mg/dL 01/26/2025 9:09 AM [facility] Calcium 9.0 8.4 - 10.2 mg/dL 01/26/2025 9:09 AM [facility] Anion Gap 8 6 - 16 01/26/2025 9:09 AM [facility] BUN/Creatinine Ratio 27(H) 7 - 23 01/26/2025 9:09 AM [facility] Osmolality Calculated 287 275 - 295 mOsm/kg 01/26/2025 9:09 AM [facility] eGFR by CKD-EPI >90 >=90 mL/min/1.7 3 m2 01/26/2025 9:09 AM [facility] Comment:Estimated Glomerular Filtration Rate (eGFR) calculated using the CKD-EPI Creatinine Equation (2020), per the National Kidney Foundation and [place] [employer]ph[employer] recommendations. Blood BLOOD SPECIMEN / Unknown Venipuncture / Unknown 01/26/2025 8:06 AM PLANNING ADVISOR 01/26/2025 8:32 AM [facility] Ebony Gill BUCKRAM SEWER-SENIOR MANAGER LAB - CHEMISTRY ORDERA BLES Final Result [facility] [address] [place] [address], [facility] [phone] documented in this encounter Visit Diagnoses Diagnosis History of TIA (transient ischemic attack)- Primary Transient ischemic attack (TIA), and cerebral infarction without residual deficits PFO (patent foramen ovale) (HCC) Ostium secundum type atrial septal defect PFO (patent foramen ovale) (HCC) Ostium secundum type atrial septal defect History of TIA (transient ischemic attack) Transient ischemic attack (TIA), and cerebral infarction without residual deficits documented in this encounter Admitting Diagnoses Diagnosis PFO (patent foramen ovale) (HCC) Ostium secundum type atrial septal defect History of TIA (transient ischemic attack) Transient ischemic attack (TIA), and cerebral infarction without residual deficits documented in this encounter Administered Medications Inactive Administered Medications - up to 3 most recent administrations Medication Order MAR Action Action Date Dose Rate Site acetaminophen (Tylenol) tablet 1,000 mg 1,000 mg, Oral, EVERY 6 HOURS PRN, mild pain, moderate pain, headaches, Starting on Sun01/26/25 at 1326, Until Sun01/27/25 at 1121, Patient preference for lesser PRN pain meds may be honored when the patient requests a less strong medication, a lower dose, or a less intrusive route of administration when the lesser drug, dose and route have been ordered for the patient. This patient request must be documented in the MAR. For example, if both oral and IV options are ordered for the same pain severity, give oral first unless patient cannot tolerate oral intake., Post-op $ Given 01/26/2025 5:29 PM PLANNING ADVISOR 1,000 mg aspirin chew tablet 81 mg 81 mg, Oral, DAILY, First dose on Sun01/27/25 at 0900, Until Discontinued $ Given 01/27/2025 8:24 AM PLANNING ADVISOR 81 mg atorvastatin (Lipitor) tablet 60 mg 60 mg, Oral, AT BEDTIME, First dose on Sun01/26/25 at 2100, Until Discontinued $ Given 01/26/2025 9:07 PM PLANNING ADVISOR 60 mg clopidogrel (plaVIX) tablet 75 mg 75 mg, Oral, DAILY, First dose on Sun01/27/25 at 0900, Until Discontinued $ Given 01/27/2025 8:25 AM PLANNING ADVISOR 75 mg dextrose IV 12.5 g 12.5 g, Intravenous, PRN, other, Bedside Glucose less than 70 mg/dL -If NOT able to eat and/or NPO and with IV Access, Starting on Sun01/26/25 at 1334, Until Sun01/27/25 at 1121, If NOT able to eat and/or NPO and with IV Access: For Bedside Glucose 54-69 mg/dL give 12.5 g Dextrose IV STAT Re-check and Re-treat blood glucose EVERY 10-25 minutes until blood glucose GREATER than or equal to 80 mg/dl. NOTIFY PROVIDER OF HYPOGLYCEMIC EVENT. dextrose IV 25 g 25 g, Intravenous, PRN, other, Bedside Glucose less than 70 mg/dL -If NOT able to eat and/or NPO and with IV Access, Starting on Sun01/26/25 at 1334, Until Sun01/27/25 at 1121, If NOT able to eat and/or NPO and with IV Access: For Bedside Glucose LESS than 54 mg/dl verify with a second Bedside Glucose (from a different site) and give 25 g Dextrose IV STAT Re-check and Re-treat blood glucose EVERY - 10-25 minutes until blood glucose GREATER than or equal to 80 mg/dl. - If repeat bedside glucose 54-79 give 12.5 g Dextrose IV STAT NOTIFY PROVIDER OF HYPOGLYCEMIC EVENT. FLUoxetine (PROzac) capsule 20 mg 20 mg, Oral, DAILY, First dose on Sun01/27/25 at 0900, Until Discontinued $ Given 01/27/2025 8:24 AM PLANNING ADVISOR 20 mg glucagon (Glucagen) injection 1 mg 1 mg, Subcutaneous, PRN, Bedside Glucose less than 70 mg/dL - If NOT able to eat and/or NPO and withOUT IV Access, Starting on Sun01/26/25 at 1334, Until Sun01/27/25 at 1121, If NOT able to eat and/or NPO and NO IV Access: For Bedside glucose 54-69 mg/dL - Give 1 mg subcutaneous For Bedside Glucose LESS than 54 mg/dl - verify with a second bedside glucose (from a different site) - Give 1 mg subcutaneous Re-check and Re-treat blood glucose EVERY 10-25 minutes until blood glucose GREATER than or equal to 80 mg/dl. NOTIFY PROVIDER OF HYPOGLYCEMIC EVENT. Reconstitute vial with 1 mL of sterile water for injection for a final concentration of 1 mg/mL; shake vial gently; use immediately and discard unused portion glucose (Diabetic Use) oral gel Oral, PRN, other, Bedside Glucose less than 70 mg/dL, Starting on Sun01/26/25 at 1334, Until Sun01/27/25 at 1121, If able to take oral medications: For Bedside Glucose 54 - 69 mg/dL Give 15 grams of oral carbohydrates - 1 glucose gel (see MAR) If patient refuses glucose gel, then offer: - 4 ounces of fruit juice OR - 4 ounces non-diet soda OR - 8 ounces of fat-free milk For Bedside Glucose LESS than 54 mg/dL verify with a second Bedside Glucose (from a different site) - If pt is symptomatic, do not delay treatment - If accuracy of the POC glucose is in question, confirm glucose with aSTAT laboratory test Give 30 grams of oral carbohydrates - 2 glucose gels (see MAR) If patient refuses glucose gel, then offer: - 8 ounces of fruit juice OR - 8 ounces non-diet soda OR - 16 ounces of fat-free milk Re-check and Re-treat blood glucose EVERY 10-25 minutes until blood glucose GREATER than or equal to 80 mg/dl. - If on recheck, bedside glucose 54-79 mg/dL - Give 15 grams of oral carbohydrates (see above for choices) NOTIFY PROVIDER OF HYPOGLYCEMIC EVENT. insulin aspart (NovoLOG) pen 0-4 Units 0-4 Units, Subcutaneous, AT BEDTIME, First dose on Sun01/26/25 at 2100, Until Discontinued, Low Dose: Correction Insulin Bedside glucose should be done within 30-60 minutes of correction insulin administration. BG (mg/dL) Corrective Action LESS than 70 follow Hypoglycemic guidelines, 70-220 NO bedtime correction insulin 221-260 GIVE 1 unit of insulin 261-300 GIVE 2 units of insulin 301-350 GIVE 3 units of insulin Greater than 350 GIVE 4 units of insulin and notify physician . WASTE DISPOSAL INSTRUCTIONS: Black Bin Disposal required. insulin aspart (NovoLOG) pen 0-6 Units 0-6 Units, Subcutaneous, 3 TIMES DAILY WITH MEALS, First dose on Sun01/26/25 at 1800, Until Discontinued, Low Dose: Correction Insulin Bedside glucose should be done within 30-60 minutes of correction insulin administration. BG (mg/dL) Corrective Action LESS than 70 follow Hypoglycemic guidelines, 70-180 NO Correction insulin, 181-220 GIVE 2 units of insulin, 221-260 GIVE 3 units of insulin, 261-300 GIVE 4 units of insulin, 301-350 GIVE 5 units of insulin, Greater than 350 GIVE 6 units of insulin and notify physician. If the patient is NPO: DO NOT HOLD correction insulin If patient is eating meals and has orders for Mealtime insulin, combine and give at the same time. . WASTE DISPOSAL INSTRUCTIONS: Black Bin Disposal required. $ Given 01/26/2025 5:32 PM PLANNING ADVISOR 2 Units Abdominal Tissue lidocaine (Lidoderm) 5 % patch 1 patch 1 patch, Administer over 12 Hours, DAILY PRN, MSK pain, Starting on Sun01/26/25 at 1330, Until Sun01/27/25 at 1121, Apply to 1 and remove patch after a max of 12 hours of application within a 24 hour period. $ Applied 01/26/2025 9:08 PM PLANNING ADVISOR 1 patch Back lisinopril (Prinivil; Zestril) tablet 40 mg 40 mg, Oral, DAILY, First dose on Sun01/27/25 at 0900, Until Discontinued $ Given 01/27/2025 8:24 AM PLANNING ADVISOR 40 mg OLANZapine (ZyPREXA) tablet 10 mg 10 mg, Oral, AT BEDTIME PRN, Anxiety, insomnia, Starting on Sun01/26/25 at 1331, Until Sun01/27/25 at 1121 $ Given 01/26/2025 9:07 PM PLANNING ADVISOR 10 mg oxyCODONE (immediate release) (Roxicodone) tablet 5 mg 5 mg, Oral, EVERY 6 HOURS PRN, moderate pain, severe pain, Starting on Sun01/26/25 at 1327, Until Sun01/27/25 at 1121, Patient preference for lesser PRN pain meds may be honored when the patient requests a less strong medication, a lower dose, or a less intrusive route of administration when the lesser drug, dose and route have been ordered for the patient. This patient request must be documented in the MAR. For example, if both oral and IV options are ordered for the same pain severity, give oral first unless patient cannot tolerate oral intake. $ Given 01/27/2025 4:42 AM PLANNING ADVISOR 5 mg $ Given 01/26/2025 9:07 PM PLANNING ADVISOR 5 mg $ Given 01/26/2025 1:50 PM PLANNING ADVISOR 5 mg pantoprazole EC (Protonix) tablet 40 mg 40 mg, Oral, DAILY, First dose on Sun01/27/25 at 0900, Until Discontinued, Do not crush, chew, or cut in half. $ Given 01/27/2025 8:25 AM PLANNING ADVISOR 40 mg perflutren lipid microsphere (Definity) injection 1.5 mL 1.5 mL, Intravenous, INTRA-PROCEDURE ONCE, 1 dose, On Sun01/26/25 at 1645, Shake well before using. $ Given 01/26/2025 4:35 PM PLANNING ADVISOR 1.5 mL topiramate (Topamax) tablet 50 mg 50 mg, Oral, DAILY, First dose on Sun01/26/25 at 1415, Until Discontinued, Swallow tablets whole if taking orally to avoid a bitter taste. $ Given 01/27/2025 8:25 AM PLANNING ADVISOR 50 mg $ Given 01/26/2025 5:27 PM PLANNING ADVISOR 50 mg documented in this encounter Active and Recently Administered Medications Times are shown in PLANNING ADVISOR. Scheduled Medication Order 01/25/2025 01/26/2025 01/27/2025 aspirin chew tablet 81 mg 81 mg, Oral, DAILY, First dose on Sun01/27/25 at 0900, Until Discontinued 823 ($ Given - Provider: Lisa Ortiz RN) atorvastatin (Lipitor) tablet 60 mg 60 mg, Oral, AT BEDTIME, First dose on Sun01/26/25 at 2100, Until Discontinued 2106 ($ Given - Provider: Nettie Vazquez RN) clopidogrel (plaVIX) tablet 75 mg 75 mg, Oral, DAILY, First dose on Sun01/27/25 at 0900, Until Discontinued 824 ($ Given - Provider: Lisa Ortiz, GONZALO) FLUoxetine (PROzac) capsule 20 mg 20 mg, Oral, DAILY, First dose on Sun01/27/25 at 0900, Until Discontinued 823 ($ Given - Provider: Lisa Ortiz, GONZALO) insulin aspart (NovoLOG) pen 0-4 Units 0-4 Units, Subcutaneous, AT BEDTIME, First dose on Sun01/26/25 at 2100, Until Discontinued, Low Dose: Correction Insulin Bedside glucose should be done within 30-60 minutes of correction insulin administration. BG (mg/dL) Corrective Action LESS than 70 follow Hypoglycemic guidelines, 70-220 NO bedtime correction insulin 221-260 GIVE 1 unit of insulin 261-300 GIVE 2 units of insulin 301-350 GIVE 3 units of insulin Greater than 350 GIVE 4 units of insulin and notify physician . WASTE DISPOSAL INSTRUCTIONS: Black Bin Disposal required. 2143 (Not Administered - Provider: Nettie Vazquez RN - Reason: Per Administration Instructions - Comment: Glucsoe 184) insulin aspart (NovoLOG) pen 0-6 Units 0-6 Units, Subcutaneous, 3 TIMES DAILY WITH MEALS, First dose on Sun01/26/25 at 1800, Until Discontinued, Low Dose: Correction Insulin Bedside glucose should be done within 30-60 minutes of correction insulin administration. BG (mg/dL) Corrective Action LESS than 70 follow Hypoglycemic guidelines, 70-180 NO Correction insulin, 181-220 GIVE 2 units of insulin, 221-260 GIVE 3 units of insulin, 261-300 GIVE 4 units of insulin, 301-350 GIVE 5 units of insulin, Greater than 350 GIVE 6 units of insulin and notify physician. If the patient is NPO: DO NOT HOLD correction insulin If patient is eating meals and has orders for Mealtime insulin, combine and give at the same time. . WASTE DISPOSAL INSTRUCTIONS: Black Bin Disposal required. 1732 ($ Given - Provider: Lisa Ortiz RN) 0816 (Not Administered - Provider: Lisa Ortiz RN - Reason: Other - Comment: glucose 162) lisinopril (Prinivil; Zestril) tablet 40 mg 40 mg, Oral, DAILY, First dose on Sun01/27/25 at 0900, Until Discontinued 0824 ($ Given - Provider: Lisa Ortiz RN) pantoprazole EC (Protonix) tablet 40 mg 40 mg, Oral, DAILY, First dose on Sun01/27/25 at 0900, Until Discontinued, Do not crush, chew, or cut in half. 0825 ($ Given - Provider: Lisa Ortiz RN) perflutren lipid microsphere (Definity) injection 1.5 mL (COMPLETED) 1.5 mL, Intravenous, INTRA-PROCEDURE ONCE, 1 dose, On Sun01/26/25 at 1645, Shake well before using. 1635 ($ Given - Provider: Derik Kiser [facility]) topiramate (Topamax) tablet 50 mg 50 mg, Oral, DAILY, First dose on Sun01/26/25 at 1415, Until Discontinued, Swallow tablets whole if taking orally to avoid a bitter taste. 1727 ($ Given - Provider: Lisa Ortiz RN) 0825 ($ Given - Provider: Lisa Ortiz RN) umeclidinium (Incruse Ellipta) 62.5 MCG/ACT inhaler 1 puff 1 puff, Inhalation, DAILY, First dose on Sun01/26/25 at 1345, Until Discontinued, . WASTE DISPOSAL INSTRUCTION: Send to Pharmacy for Disposal. . 1445 (Not Administered - Provider: Jazmín Jain RCP - Reason: See Comments - Comment: will start in AM to stay on correct schedule) 0827 (Not Administered - Provider: Lisa Ortiz RN - Reason: Refused-Patient - Comment: Patient states she does not need it. Patient is also getting discharged soon.) PRN Medication Order 01/25/2025 01/26/2025 01/27/2025 acetaminophen (Tylenol) tablet 1,000 mg 1,000 mg, Oral, EVERY 6 HOURS PRN, mild pain, moderate pain, headaches, Starting on Sun01/26/25 at 1326, Until Sun01/27/25 at 1121, Patient preference for lesser PRN pain meds may be honored when the patient requests a less strong medication, a lower dose, or a less intrusive route of administration when the lesser drug, dose and route have been ordered for the patient. This patient request must be documented in the MAR. For example, if both oral and IV options are ordered for the same pain severity, give oral first unless patient cannot tolerate oral intake., Post-op 1729 ($ Given - Provider: Lisa Ortiz RN) albuterol HFA (Proventil; Ventolin; Proair) 108 (90 Base) MCG/ACT inhaler 2 puff 2 puff, Inhalation, EVERY 6 HOURS PRN, shortness of breath, wheezing, Starting on Sun01/26/25 at 1328, Until Sun01/27/25 at 1121, Shake well before using. WASTE DISPOSAL INSTRUCTION: Send to Pharmacy for Disposal. ALPRAZolam (Xanax) tablet 1 mg 1 mg, Oral, 3 TIMES DAILY PRN, anxiety, Starting on Sun01/26/25 at 1333, Until Sun01/27/25 at 1121 aspirin tablet (CANCELED) PRN, Starting on Sun01/26/25 at 1038, Until Sun01/26/25 at 1529, Intra-procedure (CATH) 1038 ($ Given - Provider: Fior Franz RN) ceFAZolin (Ancef) 2,000 mg in NaCl IV 0.9 % 50 mL IVPB (CANCELED) CONTINUOUS PRN, Starting on Sun01/26/25 at 1040, Until Sun01/26/25 at 1529, Intra-procedure (CATH) 1040 ($ New Bag/Syringe - Provider: Fior Franz RN) clopidogrel (plaVIX) tablet (CANCELED) PRN, Starting on Sun01/26/25 at 1038, Until Sun01/26/25 at 1529, Intra-procedure (CATH) 1038 ($ Given - Provider: Fior Franz, GONZALO) dextrose IV 12.5 g(Linked Group 1) 12.5 g, Intravenous, PRN, other, Bedside Glucose less than 70 mg/dL -If NOT able to eat and/or NPO and with IV Access, Starting on Sun01/26/25 at 1334, Until Sun01/27/25 at 1121, If NOT able to eat and/or NPO and with IV Access: For Bedside Glucose 54-69 mg/dL give 12.5 g Dextrose IV STAT Re-check and Re-treat blood glucose EVERY 10-25 minutes until blood glucose GREATER than or equal to 80 mg/dl. NOTIFY PROVIDER OF HYPOGLYCEMIC EVENT. dextrose IV 25 g(Linked Group 1) 25 g, Intravenous, PRN, other, Bedside Glucose less than 70 mg/dL -If NOT able to eat and/or NPO and with IV Access, Starting on Sun01/26/25 at 1334, Until Sun01/27/25 at 1121, If NOT able to eat and/or NPO and with IV Access: For Bedside Glucose LESS than 54 mg/dl verify with a second Bedside Glucose (from a different site) and give 25 g Dextrose IV STAT Re-check and Re-treat blood glucose EVERY - 10-25 minutes until blood glucose GREATER than or equal to 80 mg/dl. - If repeat bedside glucose 54-79 give 12.5 g Dextrose IV STAT NOTIFY PROVIDER OF HYPOGLYCEMIC EVENT. fentaNYL (PF) (Sublimaze) injection (CANCELED) PRN, Starting on Sun01/26/25 at 1052, Until Sun01/26/25 at 1529, Intra-procedure (CATH) 1052 ($ Given - Provider: Fior Franz, GONZALO)1113 ($ Given - Provider: Fior Franz RN)1202 ($ Given - Provider: Luis Miguel Cortes RN)1223 ($ Given - Provider: Fior Franz, RN) glucagon (Glucagen) injection 1 mg(Linked Group 1) 1 mg, Subcutaneous, PRN, Bedside Glucose less than 70 mg/dL - If NOT able to eat and/or NPO and withOUT IV Access, Starting on Sun01/26/25 at 1334, Until Sun01/27/25 at 1121, If NOT able to eat and/or NPO and NO IV Access: For Bedside glucose 54-69 mg/dL - Give 1 mg subcutaneous For Bedside Glucose LESS than 54 mg/dl - verify with a second bedside glucose (from a different site) - Give 1 mg subcutaneous Re-check and Re-treat blood glucose EVERY 10-25 minutes until blood glucose GREATER than or equal to 80 mg/dl. NOTIFY PROVIDER OF HYPOGLYCEMIC EVENT. Reconstitute vial with 1 mL of sterile water for injection for a final concentration of 1 mg/mL; shake vial gently; use immediately and discard unused portion glucose (Diabetic Use) oral gel Oral, PRN, other, Bedside Glucose less than 70 mg/dL, Starting on Sun01/26/25 at 1334, Until Sun01/27/25 at 1121, If able to take oral medications: For Bedside Glucose 54 - 69 mg/dL Give 15 grams of oral carbohydrates - 1 glucose gel (see MAR) If patient refuses glucose gel, then offer: - 4 ounces of fruit juice OR - 4 ounces non-diet soda OR - 8 ounces of fat-free milk For Bedside Glucose LESS than 54 mg/dL verify with a second Bedside Glucose (from a different site) - If pt is symptomatic, do not delay treatment - If accuracy of the POC glucose is in question, confirm glucose with aSTAT laboratory test Give 30 grams of oral carbohydrates - 2 glucose gels (see MAR) If patient refuses glucose gel, then offer: - 8 ounces of fruit juice OR - 8 ounces non-diet soda OR - 16 ounces of fat-free milk Re-check and Re-treat blood glucose EVERY 10-25 minutes until blood glucose GREATER than or equal to 80 mg/dl. - If on recheck, bedside glucose 54-79 mg/dL - Give 15 grams of oral carbohydrates (see above for choices) NOTIFY PROVIDER OF HYPOGLYCEMIC EVENT. heparin injection (CANCELED) PRN, Starting on Sun01/26/25 at 1053, Until Sun01/26/25 at 1529, Intra-procedure (CATH) 1053 ($ Given - Provider: Fior Franz, GONZALO) heparin injection (CANCELED) PRN, Starting on Sun01/26/25 at 1128, Until Sun01/26/25 at 1529, Intra-procedure (CATH) 1128 ($ Given - Provider: Fior Franz, RN) lidocaine (Lidoderm) 5 % patch 1 patch 1 patch, Administer over 12 Hours, DAILY PRN, MSK pain, Starting on Sun01/26/25 at 1330, Until Sun01/27/25 at 1121, Apply to 1 and remove patch after a max of 12 hours of application within a 24 hour period. 210 ($ Applied - Provider: Nettie Vazquez RN) 0825 (Removed - Provider: Lisa Ortiz RN) lidocaine (Xylocaine) 1 % injection (CANCELED) PRN, Starting on Sun01/26/25 at 1041, Until Sun01/26/25 at 1529, Intra-procedure (CATH) 1040 ($ Given - Provider: Rayshawn Sadlivar MD) midazolam (Versed) injection (CANCELED) PRN, Starting on Sun01/26/25 at 1052, Until Sun01/26/25 at 1529, Intra-procedure (CATH) 1052 ($ Given - Provider: Fior Franz RN)1113 ($ Given - Provider: Fior Franz RN) nitroGLYCERIN (Nitrostat) tablet 0.4 mg 0.4 mg, Sublingual, EVERY 5 MIN PRN, Angina, Starting on Sun01/26/25 at 1331, Until Sun01/27/25 at 1121, Every 5 minutes as needed, may repeat up to 3 doses. Contact physician after 1 dose if the patient is still experiencing chest pain and requiring a second dose. OLANZapine (ZyPREXA) tablet 10 mg 10 mg, Oral, AT BEDTIME PRN, Anxiety, insomnia, Starting on Sun01/26/25 at 1331, Until Sun01/27/25 at 1121 210 ($ Given - Provider: Nettie Vazquez RN) oxyCODONE (immediate release) (Roxicodone) tablet 5 mg 5 mg, Oral, EVERY 6 HOURS PRN, moderate pain, severe pain, Starting on Sun01/26/25 at 1327, Until Sun01/27/25 at 1121, Patient preference for lesser PRN pain meds may be honored when the patient requests a less strong medication, a lower dose, or a less intrusive route of administration when the lesser drug, dose and route have been ordered for the patient. This patient request must be documented in the MAR. For example, if both oral and IV options are ordered for the same pain severity, give oral first unless patient cannot tolerate oral intake. 1350 ($ Given - Provider: Allie Rao, RN)2107 ($ Given - Provider: Nettie Vazquez, RN) 0442 ($ Given - Provider: Nettie Vazquez, RN) protamine injection (CANCELED) PRN, Starting on Sun01/26/25 at 1215, Until Sun01/26/25 at 1529, Intra-procedure (CATH) 1215 ($ Given - Provider: Fior Franz, RN) Linked Groups Order Group 1: dextrose IV 12.5 gJump to med 12.5 g, Intravenous, PRN, other, Bedside Glucose less than 70 mg/dL -If NOT able to eat and/or NPO and with IV Access, Starting on Sun01/26/25 at 1334, Until Sun01/27/25 at 1121, If NOT able to eat and/or NPO and with IV Access: For Bedside Glucose 54-69 mg/dL give 12.5 g Dextrose IV STAT Re-check and Re-treat blood glucose EVERY 10-25 minutes until blood glucose GREATER than or equal to 80 mg/dl. NOTIFY PROVIDER OF HYPOGLYCEMIC EVENT. Or dextrose IV 25 gJump to med 25 g, Intravenous, PRN, other, Bedside Glucose less than 70 mg/dL -If NOT able to eat and/or NPO and with IV Access, Starting on Sun01/26/25 at 1334, Until Sun01/27/25 at 1121, If NOT able to eat and/or NPO and with IV Access: For Bedside Glucose LESS than 54 mg/dl verify with a second Bedside Glucose (from a different site) and give 25 g Dextrose IV STAT Re-check and Re-treat blood glucose EVERY - 10-25 minutes until blood glucose GREATER than or equal to 80 mg/dl. - If repeat bedside glucose 54- 79 give 12.5 g Dextrose IV STAT NOTIFY PROVIDER OF HYPOGLYCEMIC EVENT. Or glucagon (Glucagen) injection 1 mgJump to med 1 mg, Subcutaneous, PRN, Bedside Glucose less than 70 mg/dL - If NOT able to eat and/or NPO and withOUT IV Access, Starting on Sun01/26/25 at 1334, Until Sun01/27/25 at 1121, If NOT able to eat and/or NPO and NO IV Access: For Bedside glucose 54-69 mg/dL - Give 1 mg subcutaneous For Bedside Glucose LESS than 54 mg/dl - verify with a second bedside glucose (from a different site) - Give 1 mg subcutaneous Re-check and Re-treat blood glucose EVERY 10-25 minutes until blood glucose GREATER than or equal to 80 mg/dl. NOTIFY PROVIDER OF HYPOGLYCEMIC EVENT. Reconstitute vial with 1 mL of sterile water for injection for a final concentration of 1 mg/mL; shake vial gently; use immediately and discard unused portion documented in this encounter Care Teams Optician Apprentice Relationship Specialty Start Date End Date Herb Tate APRN-SENIOR MANAGER [address] [place] [id number] PCP - General Nurse Practitioner 11/14/24 documented as of this encounter
--- OUTSIDE RECORDS SUMMARY | 2025-01-26 07:28 | XMS_ITS | Encounter Summary ---
Author Organization [facility] Address [address] [place] [address] Care Team Providers Care Hoop Machine Operator Name Role Phone LeaHerb Guillermo SANTIAGO Primary Care Provider [phone] Reason for Referral * Cardiac (Routine) - Open Specialty Diagnoses / Procedures Referred By Mónica garcia Referred To Contact Diagnoses PFO (patent foramen ovale) (HCC) History of TIA (transient ischemic attack) Procedures ECHO COMPLETE OH ECHO TTHRC R-T 2D W/WOM-MODE COMPL SPEC&COLR D OH ECHO TRANSTHORAC R-T 2D W/WO M-MODE REC COMP Ebony Gill APRN-CNP [address] [facility] [address] [facility] [place] [address] Phone: tel: fax: Referral ID Status Reason Start Date Expiration Date Visits Re quested Visits Authorized [id number] Open 04/05/2025 04/05/2026 1 1 OMS AND IMMIGRATION OFFICER Reason for Visit * Auth/Cert Specialty Diagnoses / Procedures Referred By Mónica garcia Referred To Contact Diagnoses PFO (patent foramen ovale) (HCC) History of TIA (transient ischemic attack) PFO (patent foramen ovale) (HCC) [Q21.12] History of TIA (transient ischemic attack) [Z86.73] Procedures OH PERQ TRNSCATH BENJAMIN INTERATRIAL OH INTRACARD ECHO, THER/DX INTERVENT OH RIGHT HEART CATH CCL PATENT FORAMEN OVALE CLOSURE CCL RIGHT HEART CATH Referral ID Status Reason Start Date Expiration Date Visits Re quested Visits Authorized [id number] 1 1 Encounter Details Date Type Department Care Team (Latest Contact Info) Description 01/26/2025 7:28 AM CUSTOMS AND IMMIGRATION OFFICER - 01/27/2025 10:21 AM CUSTOMS AND IMMIGRATION OFFICER Hospital Encounter [facility] ACUTE [address] [place] [address] Sussy Kaur MD [address] [facility] [address] [place] [address] Cardiac Catheterization Discharge Disposition: Home or Self [...] and heating? Not hard at all 11/15/2024 [facility] [place] of Occupat ional Health - Occupational Stress [...] any time in the past 12 m [facility], were you homeless or living in a fci (including now)? No 11/15/2024 Comments No Sex and Gender Information Value Date Recorded Sex Assigned at Not on file Legal Sex Female 5:58 PM CUSTOMS AND IMMIGRATION OFFICER Gender Identity Not on file Sexual Orientation Not on file documented as of this encounter Last Filed Vital Signs Vital Sign Reading Time Taken Comments Blood Pressure 124/78 01/27/2025 7:35 AM CUSTOMS AND IMMIGRATION OFFICER Pulse 101 01/27/2025 7:35 AM CUSTOMS AND IMMIGRATION OFFICER Temperature 36.7 C (98.1 F) 01/27/2025 7:35 AM CUSTOMS AND IMMIGRATION OFFICER Respiratory Rate 17 01/27/2025 4:51 AM CUSTOMS AND IMMIGRATION OFFICER Oxygen Saturation 96% 01/27/2025 8:00 AM CUSTOMS AND IMMIGRATION OFFICER Inhaled Oxygen Concentration 21% 01/26/2025 3 :00 PM CUSTOMS AND IMMIGRATION OFFICER Weight 127.5 kg (281 lb) 01/26/2025 7:55 AM CUSTOMS AND IMMIGRATION OFFICER Height 167.6 cm (5' 6) 01/26/2025 7:55 AM CUSTOMS AND IMMIGRATION OFFICER Body Mass Index 45.35 01/26/2025 7:55 AM CUSTOMS AND IMMIGRATION OFFICER documented in this encounter Functional Status * Alcohol Use Screening (AUDIT-C) Question Answer Date of Assessment Author Q1: How often do you have a drink containing alcohol? Never 01/26/2025 8:18 AM CUSTOMS AND IMMIGRATION OFFICER Nicole Denis RN Q2: How many drinks containing alcohol do you have on a typical day when you are drinking? Patient does not drink 01/26/2025 8:18 AM CUSTOMS AND IMMIGRATION OFFICER Nicole Denis RN Q3: How often do you have six or more drinks on one occasion? Never 01/26/2025 8:18 AM CUSTOMS AND IMMIGRATION OFFICER Nicole Denis RN * AUDIT-C Score Answer [...] 12/19/2024 10:14 AM Sarah Stewart RN * [place] Suicide Severity Rating Scale Question Answer Date [...] Discharge Instructions * Discharge Instructions* Ebony Gill APRN-CLINICAL HAEMATOLOGIST - 01/26/2025 10:36 AM CUSTOMS AND IMMIGRATION OFFICER Care after Venous Access Structural Heart PFO/ASD Closure Please continue aspirin 81 mg daily and start clopidogrel (plavix) 75mg daily until you have TTE (Transthoracic echocardiogram) with bubble study in 2-3 months. You will be called to schedule this ifit is not already scheduled. Please keep CT appointment at [facility] on 02/09/25. Keep appointment with Dr. [...] questions, please call our cardiology office, . [facility] Cardiology Office [address] [facility] [address] [place] [address] Thank you for letting us take care of you! [facility] Cardiology Team OMS AND IMMIGRATION OFFICER OMS AND IMMIGRATION OFFICER documented in this encounter Medications at Time [...] daily 90 tablet 1 01/27/2025 10:20 AM CUSTOMS AND IMMIGRATION OFFICER 01/27/2025 Contour Plus Test test strip 10/09/2024 cyclobenzaprine (Flexeril) 10 MG tablet THREE TIMES A DAY as needed for muscle spasm 03/20/2024 FLUoxetine (PROzac) 20 MG capsule Take 1 (one) capsule by mouth Every morning and lunchtime Klayesta 917761 UNIT/GM powder APPLY 1 APPLICATION TOPICALLY TWICE [...] Angina 100 tablet 3 11/28/2024 nystatin (Mycostatin) 722462 UNIT/GM cream APPLY TOPICALLY TO THE AFFECTED [...] Maintains hematologic stability Description: INTERVENTIONS: Outcome: Progressing OMS AND IMMIGRATION OFFICER * Ebony Gill APRN-CNP - 01/26/2025 1:20 [...] person. They verbalized understanding. Ebony Gill DNP, C PYTHON DEVELOPER, ENGINEERING PROGRAM MANAGER-BC [facility] OMS AND IMMIGRATION OFFICER * Sveta Lopez RN - 01/12/2025 9:04 AM CST Appointment details and preop instructions sent to patient via email per request: 01/26/25 (8 am arrival time)- PFO closure & Right Heart Catheterization 02/09/25 (10:45 am arrival time- CT cardiac angio Please see instructions for both appointments below: You have been scheduled for a Right Heart Catheterization and Patent Foramen Ovale Closure at [facility] on 01/26/25 at 10 am (please arrive by 8 am). [facility] is located at [address] [place] [address], turn in at the Main Entrance or you can enter by going west on [facility]. You may park on the [place] side of [facility] directly across from the Hospital. Please bring your parking ticket with you for validation. Take elevator to Level 1, exit the elevator to your right and walk straight down the hallway to [facility] desk then the [employer] Lounge. Please arrive to the [employer] Lounge on First Level at [facility] by 8 am (two hours before start time). Before your procedure, you can expect to have an IV catheter placed, blood drawn, and vital signs measured. You will also clean your skin with a surgical soap and change into a hospital gown. You can expect to store your belongings in a small locker while in the laborer chemical processing. After sedation, you can expect to spend a few hours being monitored while you wake up. If groin access was used, you can expect to lay flat for 4-6 hours. If you have questions for the hospital on the day of procedure call: [phone] Scheduling/procedure related questions only: [phone] DO NOT eat any solid food after [...] am arrival time Patient Instructions Visit Type: [facility] CT ANGIO HEART CABG W CONTRAST Do not eat or drink for 4 hours prior to the test. This includes chewing gum, alcohol or caffeine of any kind. Location Instruction: [facility] is located at [facility]. From [facility], turn in at the Main Entrance. This will take you to the parking garage. Park on the Blue side of the garage and take the [facility] ([facility]) elevators to the Garden Level. ($2 parking fee with validated ticket at Rental Counter Clerk Desk.) Exit the elevator to your right and walk straight down the hallway past the staircase to the end of the orozco. Turn right andcheck in at the waiting room on your right ([facility]). Office Services Coordinator parking is available at the main entrance for $4 (free with handicap tags.) Sveta Lopez RN 01/12/2025 9:11 AM OMS AND IMMIGRATION OFFICER documented in this encounter H&P Notes * Ebony Gill, C PYTHON DEVELOPER-CLINICAL HAEMATOLOGIST - 01/26/2025 8:09 AM CST [facility] PRE PROCEDURE H&P AND SEDATION NOTE Planned [...] for performance of procedure. Monitoring: heart rate, rn cardiac rehab, continuous pulse oximetry, frequent blood pressure checks,level [...] Sussy Kaur MD at 01/26/2025 9:29 AM CUSTOMS AND IMMIGRATION OFFICER OMS AND IMMIGRATION OFFICER OMS AND IMMIGRATION OFFICER documented in this encounter Plan of Treatment Upcoming Encounters Date Type Department Care Team (Late st Contact Info) Description 02/09/2025 11:00 AM CUSTOMS AND IMMIGRATION OFFICER Appointment [facility] CAT SCAN [address] [place] [address] Eveline Roland, C PYTHON DEVELOPER-CLINICAL HAEMATOLOGIST [address] [facility] [address] [place] [address] 02/19/2025 11:00 AM CUSTOMS AND IMMIGRATION OFFICER Office Visit [facility] - Neurology [address] [facility], [place] [address] Miesha Adamson PA-C [address] [facility] [address] [place] [address] 03/06/2025 9:20 AM CUSTOMS AND IMMIGRATION OFFICER Office Visit [facility] - Cardiology [address] [facility] [place] [address] Sussy Kaur MD [address] [facility] [address] [place] [address] Pending Results Name Type Priority Associated Diagnoses Date/Time Cardiac Catheterization Cardiac Cath Cupid Routine PFO (patent foramen ovale) (HCC) History of TIA (transient ischemic attack) 01/26/2025 11:57 AM CUSTOMS AND IMMIGRATION OFFICER ECHO MARY PROCEDURAL Echocardiography Cupid Routine PFO (patent foramen ovale) (HCC) 01/26/2025 12:01 PM CUSTOMS AND IMMIGRATION OFFICER Scheduled Orders Name Type Priority Associated Diagnoses [...] (CALCIUM TOTAL) AM Draw 01/27/2025 8:34 AM CUSTOMS AND IMMIGRATION OFFICER PFO (patent foramen ovale) (HCC) History of TIA (transient ischemic attack) MAGNESIUM BLOOD Routine 01/27/2025 8:34 AM CUSTOMS AND IMMIGRATION OFFICER PFO (patent foramen ovale) (HCC) History of TIA (transient ischemic attack) GLUCOSE - POINT OF CARE Routine 01/27/2025 7:32 AM CUSTOMS AND IMMIGRATION OFFICER CBC W/O DIFFERENTIAL AM Draw 01/27/2025 2:26 AM CUSTOMS AND IMMIGRATION OFFICER PFO (patent foramen ovale) (HCC) History of TIA (transient ischemic attack) GLUCOSE - POINT OF CARE Routine 01/26/2025 9:32 PM CUSTOMS AND IMMIGRATION OFFICER GLUCOSE - POINT OF CARE Routine 01/26/2025 5:20 PM CUSTOMS AND IMMIGRATION OFFICER ECHO LIMITED W CONTRAST W BUBBLE STUDY PENDING DISCHARGE 01/26/2025 4:34 PM CUSTOMS AND IMMIGRATION OFFICER PFO (patent foramen ovale) (HCC) History of TIA (transient ischemic attack) CCL RIGHT HEART CATH Routine 01/26/2025 11:57 AM CUSTOMS AND IMMIGRATION OFFICER PFO (patent foramen ovale) (HCC) History of TIA (transient ischemic attack) Procedure Note - Rayshawn Williamson MD - 01/26/2025 11:57 AM CSTThis note is in progress. Successful ICE guided closure of PFO with 48 mm Sibley ASD closuredevice. There is no pulmonary hypertension.(Mean [...] the modified Seldinger technique. A 11 Fr HauteDayth 11Fr X 10Cm sheath was inserted. A second site was then accessed via the right femoral vein. A 16 Fr Shth Intro 33Cm 6.1Mm 16Fr Sibley Dryseal sheath was inserted. PFO/ASD Patient Prep [...] perclose devices used for closure of 16 hong konger access site in the right common femoral vein. Vascade used for closure of 11 hong konger entry point in the right common femoral vein. Right Heart Cath Cardiac output measurements were performed using the Jahaira method. The catheter was inserted into the right femoral vein. There is no pulmonary hypertension. Recommendations - Recommend dual anti platelet therapy for at least 6 months. - Antibiotics prophylaxis before dental procedures CCL PATENT FORAMEN OVALE CLOSURE Routine 01/26/2025 11:57 AM CUSTOMS AND IMMIGRATION OFFICER PFO (patent foramen ovale) (HCC) History of TIA (transient ischemic attack) Procedure Note - Rayshawn Williamson MD - 01/26/2025 11:57 AM CSTThis note is in progress. Successful ICE guided closure of PFO with 48 mm Sibley ASD closuredevice. There is no pulmonary hypertension.(Mean [...] 16 Fr Shth Intro 33Cm 6.1Mm 16Fr Sibley Dryseal sheath was inserted. PFO/ASD Patient Prep [...] perclose devices used for closure of 16 hong konger access site in the right common femoral vein. Vascade used for closure of 11 hong konger entry point in the right common femoral vein. Right Heart Cath Cardiac output measurements were performed using the Jahaira method. The catheter was inserted into the right femoral vein. There is no pulmonary hypertension. Recommendations - Recommend dual anti platelet therapy for at least 6 months. - Antibiotics prophylaxis before dental procedures BLOOD TYPE VERIFICATION Routine 01/26/2025 9:33 AM CUSTOMS AND IMMIGRATION OFFICER GLUCOSE - POINT OF CARE Routine 01/26/2025 8:18 AM CUSTOMS AND IMMIGRATION OFFICER TYPE + SCREEN PANEL Routine 01/26/2025 8 :06 AM CUSTOMS AND IMMIGRATION OFFICER CBC W/O DIFFERENTIAL JESSICA 01/26/2025 8:06 AM CUSTOMS AND IMMIGRATION OFFICER PFO (patent foramen ovale) (HCC) History of TIA (transient ischemic attack) BASIC METABOLIC PANEL (CALCIUM TOTAL) JESSICA 01/26/2025 8:06 AM CUSTOMS AND IMMIGRATION OFFICER PFO (patent foramen ovale) (HCC) History of TIA (transient ischemic attack) documented in this encounter Results * MAGNESIUM BLOOD (01/27/2025 8:34 AM CUSTOMS AND IMMIGRATION OFFICER) Magnesium 1.7 1.6 - 2.6 mg/dL 01/27/2025 9:15 AM [facility] Blood BLOOD SPECIMEN / Unknown Lab Venipuncture / Unknown 01/27/2025 8:34 AM CUSTOMS AND IMMIGRATION OFFICER 01/27/2025 8:46 AM CUSTOMS AND IMMIGRATION OFFICER Ebony Gill C PYTHON DEVELOPER-CLINICAL HAEMATOLOGIST LAB - CHEMISTRY ORDERA BLES Final Result Performing Organization Address [facility]/State/ZIP Co de Phone Number [address] [address], [facility] [phone] * (ABNORMAL) BASIC METABOLIC PANEL (CALCIUM TOTAL) (01/27/2025 8:34 AM CUSTOMS AND IMMIGRATION OFFICER) BUN 9 7 - 26 mg/dL 01/27/2025 9:15 AM CUSTOMS AND IMMIGRATION OFFICER [facility] Creatinine 0.52(L) 0.56 - 0.96 mg/dL 01/27/2025 9:15 AM CUSTOMS AND IMMIGRATION OFFICER [facility] Sodium 137 136 - 145 mmol/L 01/27/2025 9:15 AM CUSTOMS AND IMMIGRATION OFFICER [facility] Potassium 4.1 3.5 - 4.5 mmol/L 01/27/2025 9:15 AM [facility] Chloride 106 98 - 107 mmol/L 01/27/2025 9:15 AM [facility] CO2 23 22 - 29 mmol/L 01/27/2025 9:15 AM [facility] Glucose 200(H) 70 - 99 mg/dL 01/27/2025 9:15 AM [facility] Calcium 8.9 8.4 - 10.2 mg/dL 01/27/2025 9:15 AM [facility] Anion Gap 8 6 - 16 01/27/2025 9:15 AM [facility] BUN/Creatinine Ratio 17 7 - 23 01/27/2025 9:15 AM [facility] Osmolality Calculated 288 275 - 295 mOsm/kg 01/27/2025 9:15 AM [facility] eGFR by CKD-EPI >90 >=90 mL/min/1.7 3 m2 01/27/2025 9:15 AM [facility] Comment:Estimated Glomerular Filtration Rate (eGFR) calculated using the CKD-EPI Creatinine Equation (2020), per the National Kidney Foundation and [place] [employer]ph[employer] recommendations. Blood BLOOD SPECIMEN / Unknown Lab Venipuncture / Unknown 01/27/2025 8:34 AM CUSTOMS AND IMMIGRATION OFFICER 01/27/2025 8:46 AM CUSTOMS AND IMMIGRATION OFFICER us Ebony Gill APRN-CLINICAL HAEMATOLOGIST LAB - CHEMISTRY ORDERA BLES Final Result [facility] [address] [place] [address], [facility] [phone] * (ABNORMAL) GLUCOSE - POINT OF CARE (01/27/2025 7:32 AM CUSTOMS AND IMMIGRATION OFFICER) Glucose WB/POC 162(H) 70 - 99 mg/dL 01/27/2025 7:54 AM [facility] Specimen Type Arterial/C apillary 01/27/2025 7:54 AM [facility] Blood BLOOD SPECIMEN / Unknown 01/27/2025 7:32 AM CUSTOMS AND IMMIGRATION OFFICER 01/27/2025 7:54 AM CUSTOMS AND IMMIGRATION OFFICER us Sussy Kaur MD LAB - POINT OF CARE ORDERAB LES Final Result [place] [id number] [place] [address], [facility] [phone] * (ABNORMAL) CBC W/O DIFFERENTIAL (01/27/2025 2:26 AM CUSTOMS AND IMMIGRATION OFFICER) WBC 8.5 4.0 - 10.7 x10E9/L 01/27/2025 3:03 AM [facility] RBC Count 4.09 3.90 - 5.20 x10E12/L 01/27/2025 3:03 AM [facility] Hemoglobin 11.3(L) 11.9 - 15.8 g/dL 01/27/2025 3:03 AM [facility] Hematocrit 36.1 34.8 - 46.1 % 01/27/2025 3:03 AM [facility] MCV 88.3 80.0 - 98.0 fL 01/27/2025 3:03 AM [facility] MCH 27.6 26.7 - 33.6 pg 01/27/2025 3:03 AM [facility] MCHC 31.3(L) 31.7 - 36.3 g/dL 01/27/2025 3:03 AM [facility] RDW-CV 13.8 11.3 - 14.8 % 01/27/2025 3:03 AM [facility] Platelet Count 176 150 - 420 x10E9/L 01/27/2025 3:03 AM [facility] MPV 11.4 7.8 - 11.4 fL 01/27/2025 3:03 AM [facility] Blood BLOOD SPECIMEN / Unknown Lab Venipuncture / Unknown 01/27/2025 2:26 AM CUSTOMS AND IMMIGRATION OFFICER 01/27/2025 2:56 AM CUSTOMS AND IMMIGRATION OFFICER Ebony Gill C PYTHON DEVELOPER-CLINICAL HAEMATOLOGIST LAB - HEMATOLOGY ORDER WESLEY Final Result [address] [address], [facility] [phone] * (ABNORMAL) GLUCOSE - POINT OF CARE (01/26/2025 9:32 PM CUSTOMS AND IMMIGRATION OFFICER) Glucose WB/POC 184(H) 70 - 99 mg/dL 01/26/2025 9:37 PM CUSTOMS AND IMMIGRATION OFFICER [facility] Specimen Type Arterial/C apillary 01/26/2025 9:37 PM CUSTOMS AND IMMIGRATION OFFICER [facility] Blood BLOOD SPECIMEN / Unknown 01/26/2025 9:32 PM CUSTOMS AND IMMIGRATION OFFICER 01/26/2025 9:37 PM CUSTOMS AND IMMIGRATION OFFICER us Sussy Kaur MD LAB - POINT OF CARE ORDERAB LES Final Result [address] [address], [place] [phone] * (ABNORMAL) GLUCOSE - POINT OF CARE (01/26/2025 5:20 PM CUSTOMS AND IMMIGRATION OFFICER) Glucose WB/POC 185(H) 70 - 99 mg/dL 01/26/2025 5:23 PM CUSTOMS AND IMMIGRATION OFFICER [facility] Specimen Type Arterial/C apillary 01/26/2025 5:23 PM CUSTOMS AND IMMIGRATION OFFICER [facility] Blood BLOOD SPECIMEN / Unknown 01/26/2025 5:20 PM CUSTOMS AND IMMIGRATION OFFICER 01/26/2025 5:23 PM CUSTOMS AND IMMIGRATION OFFICER us Sussy Kaur MD LAB - POINT OF CARE ORDERAB LES Final Result [address] [address], [place] [phone] * ECHO LIMITED W CONTRAST W BUBBLE STUDY (01/26/2025 4:34 PM CUSTOMS AND IMMIGRATION OFFICER) Myocardial strain charge 2 unitless SSM CV [...] Region Laterality Modality Ultrasound 01/26/2025 3:46 PM CUSTOMS AND IMMIGRATION OFFICER Narrative 01/26/2025 8:32 PM CUSTOMS AND IMMIGRATION OFFICER Summary * Extremely TDS despite great effort. [...] Room: 816 Patient Status: MDB Study Site: [facility] Primary Location: [facility] Info Technical Quality: Technically Difficult Exam [...] Provider: Ebony Gill Attending Physician: Ebony Gill Yard Specialist: Derik Kiser Measurements Ventricles Name Value Normal [...] Exam Date: 01/26/2025 3:46 PM Exam Room: [facility] Patient Status: MDB Study Site: [facility] Primary Location: [facility] EStudy Info Technical Quality: Technically Difficult [...] Provider: Ebony Gill Attending Physician: Ebony Gill Yard Specialist: Derik Kiser Measurements Ventricles Name Value Normal [...] MD on 01/26/2025 08:32 PM Ebony Gill APRN-CLINICAL HAEMATOLOGIST ECHO CUPID Final Result * BLOOD TYPE VERIFICATION (01/26/2025 9:33 AM CUSTOMS AND IMMIGRATION OFFICER) ABO Rh A POS 01/26/2025 10:21 AM CUSTOMS AND IMMIGRATION OFFICER [facility] BLOOD BANK LAB Blood Bank BLOOD SPECIMEN / Unknown Venipuncture / Unknown 01/26/2025 9:33 AM CUSTOMS AND IMMIGRATION OFFICER 01/26/2025 9:35 AM CUSTOMS AND IMMIGRATION OFFICER Ebony Gill APRN-CLINICAL HAEMATOLOGIST LAB - BLOOD BANK ORDER WESELY Final Result [facility] BLOOD BANK LAB [address] [place] [address], [place] [phone] * (ABNORMAL) GLUCOSE - POINT OF CARE (01/26/2025 8:18 AM CUSTOMS AND IMMIGRATION OFFICER) Pathologist [facility] Glucose WB/POC 115(H) 70 - 99 mg/dL 01/26/2025 8:19 AM [facility] Specimen Type Venous 01/26/2025 8:19 AM [facility] Blood BLOOD SPECIMEN / Unknown 01/26/2025 8:18 AM CUSTOMS AND IMMIGRATION OFFICER 01/26/2025 8:19 AM CUSTOMS AND IMMIGRATION OFFICER Sussy Kaur MD LAB - POINT OF CARE ORDERAB LES Final Result [facility] [address] [place] [address], [place] [phone] * TYPE + SCREEN PANEL (01/26/2025 8:06 AM CUSTOMS AND IMMIGRATION OFFICER) [facility] Antibody Screen NEG 8:59 AM [facility] ABO Rh A POS 01/26/2025 8:59 AM [facility] B[facility]OD [facility] LAB Blood Bank BLOOD SPECIMEN / Unknown Venipuncture / Unknown 01/26/2025 8:06 AM CUSTOMS AND IMMIGRATION OFFICER 01/26/2025 8:16 AM CUSTOMS AND IMMIGRATION OFFICER Ebony Gill APRN-BEE LAB - BLOOD BANK ORDER WESLEY Final Result [facility] BLOOD BANK LAB [address] [place] [address], [place] [phone] * (ABNORMAL) CBC W/O DIFFERENTIAL (01/26/2025 8:06 AM CUSTOMS AND IMMIGRATION OFFICER) Pathologist [facility] WBC 9.1 4.0 - 10.7 x10E9/L 01/26/2025 8:58 AM [facility] RBC Count 4.59 3.90 - 5.20 x10E12/L 01/26/2025 8:58 AM [facility] Hemoglobin 12.7 11.9 - 15.8 g/dL 01/26/2025 8:58 AM [facility] Hematocrit 40.4 34.8 - 46.1 % 01/26/2025 8:58 AM [facility] MCV 88.0 80.0 - 98.0 fL 01/26/2025 8:58 AM [facility] MCH 27.7 26.7 - 33.6 pg 01/26/2025 8:58 AM [facility] MCHC 31.4(L) 31.7 - 36.3 g/dL 01/26/2025 8:58 AM [facility] RDW-CV 13.7 11.3 - 14.8 % 01/26/2025 8:58 AM [facility] Platelet Count 267 150 - 420 x10E9/L 01/26/2025 8:58 AM [facility] MPV 10.2 7.8 - 11.4 fL 01/26/2025 8:58 AM [facility] Blood BLOOD SPECIMEN / Unknown Venipuncture / Unknown 01/26/2025 8:06 AM CUSTOMS AND IMMIGRATION OFFICER 01/26/2025 8:30 AM [facility] Ebony Gill C PYTHON DEVELOPER-CLINICAL HAEMATOLOGIST LAB - HEMATOLOGY ORDER WESLEY Final Result [facility] [address] [place] [address], [facility] [phone] * (ABNORMAL) BASIC METABOLIC PANEL (CALCIUM TOTAL) (01/26/2025 8:06 AM [facility]) BUN 13 7 - 26 mg/dL 01/26/2025 9:09 AM [facility] Creatinine 0.49(L) 0.56 - 0.96 mg/dL 01/26/2025 9:09 AM [facility] Sodium 138 136 - 145 mmol/L 01/26/2025 9:09 AM [facility] Potassium 4.4 3.5 - 4.5 mmol/L 01/26/2025 9:09 AM [facility] Chloride 107 98 - 107 mmol/L 01/26/2025 9:09 AM [facility] CO2 23 22 - 29 mmol/L 01/26/2025 9:09 AM [facility] Glucose 114(H) 70 - 99 mg/dL 01/26/2025 9:09 AM [facility] Calcium 9.0 8.4 - 10.2 mg/dL 01/26/2025 9:09 AM [facility] Anion Gap 8 6 - 16 01/26/2025 9:09 AM [facility] BUN/Creatinine Ratio 27(H) 7 - 23 01/26/2025 9:09 AM [facility] Osmolality Calculated 287 275 - 295 mOsm/kg 01/26/2025 9:09 AM [facility] eGFR by CKD-EPI >90 >=90 mL/min/1.7 3 m2 01/26/2025 9:09 AM [facility] Comment:Estimated Glomerular Filtration Rate (eGFR) calculated using the CKD-EPI Creatinine Equation (2020), per the National Kidney Foundation and [place] [employer] of Neph[employer] recommendations. Blood BLOOD SPECIMEN / Unknown Venipuncture / Unknown 01/26/2025 8:06 AM [employer] 01/26/2025 8:32 AM [facility] Ebony Gill C PYTHON DEVELOPER-CLINICAL HAEMATOLOGIST LAB - CHEMISTRY ORDERA BLES Final Result [facility] [address] [place] [address], [facility] [phone] documented in this encounter Visit Diagnoses Diagnosis [...] intake., Post-op $ Given 01/26/2025 5:29 PM [employer] 1,000 mg aspirin chew tablet 81 mg 81 mg, Oral, DAILY, First dose on Sun01/27/25 at 0900, Until Discontinued $ Given 01/27/2025 8:24 AM [employer]ER 81 mg atorvastatin (Lipitor) tablet 60 mg 60 mg, Oral, AT BEDTIME, First dose on Sun01/26/25 at 2100, Until Discontinued $ Given 01/26/2025 9:07 PM [employer]ICER 60 mg clopidogrel (plaVIX) tablet 75 mg 75 mg, Oral, DAILY, First dose on Sun01/27/25 at 0900, Until Discontinued $ Given 01/27/2025 8:25 AM [employer]ICER 75 mg dextrose IV 12.5 g 12.5 [...] Until Discontinued $ Given 01/27/2025 8:24 AM [employer] 20 mg glucagon (Glucagen) injection 1 mg [...] Disposal required. $ Given 01/26/2025 5:32 PM [employer]ICER 2 Units Abdominal Tissue lidocaine (Lidoderm) 5 % patch 1 patch 1 patch, Administer over 12 Hours, DAILY PRN, MSK pain, Starting on Sun01/26/25 at 1330, Until Sun01/27/25 at 1121, Apply to 1 and remove patch after a max of 12 hours of application within a 24 hour period. $ Applied 01/26/2025 9:08 PM [employer]ICER 1 patch Back lisinopril (Prinivil; Zestril) tablet 40 mg 40 mg, Oral, DAILY, First dose on Sun01/27/25 at 0900, Until Discontinued $ Given 01/27/2025 8:24 AM [employer]ICER 40 mg OLANZapine (ZyPREXA) tablet 10 mg 10 mg, Oral, AT BEDTIME PRN, Anxiety, insomnia, Starting on Sun01/26/25 at 1331, Until Sun01/27/25 at 1121 $ Given 01/26/2025 9:07 PM [employer]ICER 10 mg oxyCODONE (immediate release) (Roxicodone) tablet [...] oral intake. $ Given 01/27/2025 4:42 AM [employer]ICER 5 mg $ Given 01/26/2025 9:07 PM [employer]ICER 5 mg $ Given 01/26/2025 1:50 PM [employer] OFFICER 5 mg pantoprazole EC (Protonix) tablet 40 mg 40 mg, Oral, DAILY, First dose on Sun01/27/25 at 0900, Until Discontinued, Do not crush, chew, or cut in half. $ Given 01/27/2025 8:25 AM [employer] OFFICER 40 mg perflutren lipid microsphere (Definity) injection 1.5 mL 1.5 mL, Intravenous, INTRA-PROCEDURE ONCE, 1 dose, On Sun01/26/25 at 1645, Shake well before using. $ Given 01/26/2025 4:35 PM [employer] OFFICER 1.5 mL topiramate (Topamax) tablet 50 mg 50 mg, Oral, DAILY, First dose on Sun01/26/25 at 1415, Until Discontinued, Swallow tablets whole if taking orally to avoid a bitter taste. $ Given 01/27/2025 8:25 AM [employer]ICER 50 mg $ Given 01/26/2025 5:27 PM [employer]ICER 50 mg documented in this encounter Active and Recently Administered Medications Times are shown in [employer]. 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
--- OUTSIDE RECORDS SUMMARY | 2025-01-26 09:40 | XMS_ITS | Encounter Summary ---
Author Organization [facility] Address [address] [place] [address] Care Team Providers Care Life Enrichment Director Name Role Phone Herb Tate VARIETY PERFORMER-RECORDS ANALYSIS MANAGER Primary Care Provider [phone] Reason for Visit * Auth/Cert Specialty Diagnoses / Procedures Referred By Contac t Referred To Contact Diagnoses PFO (patent foramen ovale) (HCC) History of TIA (transient ischemic attack) PFO (patent foramen ovale) (HCC) [Q21.12] History of TIA (transient ischemic attack) [Z86.73] Procedures AL PERQ TRNSCATH BENJAMIN INTERATRIAL AL INTRACARD ECHO, THER/DX INTERVENT AL RIGHT HEART CATH CCL PATENT FORAMEN OVALE CLOSURE CCL RIGHT HEART CATH Referral ID Status Reason Start Date Expiration Date Visits Re quested Visits Authorized [id number] 1 1 Encounter Details Date Type Department Care Team (Late st Contact Info) Description 01/26/2025 9:40 AM PET AMBASSADOR - 01/26/2025 11:34 AM PET AMBASSADOR Surgery [facility] - Cardiac Ssrs Developer [address] [place] [address] Sussy Kaur MD [id number] [place] [address] Patent Foramen Ovale (PFO) Closure Social History Tobacco Use Types Packs/Day Years [...] and heating? Not hard at all 11/15/2024 [facility] [place] of Occupat ional Health - Occupational Stress [...] any time in the past 12 m [facility], were you homeless or living in a long term (including now)? No 11/15/2024 Comments No Sex and Gender Information Value Date Recorded Sex Assigned at Not on file Legal Sex Female 5:58 PM PET AMBASSADOR Gender Identity Not on file Sexual Orientation Not on file documented as of this encounter Last Filed Vital Signs Vital Sign Reading Time Taken Comments Blood Pressure 125/75 01/26/2025 8:45 AM PET AMBASSADOR Pulse 87 01/26/2025 8:45 AM PET AMBASSADOR Temperature 36.8 C (98.3 F) 01/26/2025 8:16 AM PET AMBASSADOR Respiratory Rate 16 01/26/2025 8:45 AM PET AMBASSADOR Oxygen Saturation 92% 01/26/2025 8:45 AM PET AMBASSADOR Inhaled Oxygen Concentration - - Weight 127.5 kg (281 lb) 01/26/2025 7:55 AM PET AMBASSADOR Height 167.6 cm (5' 6) 01/26/2025 7:55 AM PET AMBASSADOR Body Mass Index 45.35 01/26/2025 7:55 AM PET AMBASSADOR documented in this encounter Functional Status * Alcohol Use Screening (AUDIT-C) Question Answer Date of Assessment Author Q1: How often do you have a drink containing alcohol? Never 01/26/2025 8:18 AM Nicole Krishnamurthy RN Q2: How many drinks containing alcohol do you have on a typical day when you are drinking? Patient does not drink 01/26/2025 8:18 AM Nicole Krishnamurthy RN Q3: How often do you have six or more drinks on one occasion? Never 01/26/2025 8:18 AM Nicole Krishnamurthy RN * AUDIT-C Score Answer Date of [...] Assessment Author No 12/19/2024 10:14 AM Sarah Stewart, GONZALO * Does person have difficulty doing errands alone? Answer Date of Assessment Author No 12/19/2024 10:14 AM Sarah Stewart RN * Mcpherson Suicide Severity Rating Scale Question Answer Date of Assessment Author In the past 30 days, have yo u wished you were or wished you could go to sleep and not wake up? No 01/26/2025 7:53 AM PET AMBASSADOR Nicole Denis, RN In the past 30 days, have tran u actually had any thoughts about killing yourself? No 01/26/2025 7:53 AM PET AMBASSADOR Nicole Denis, RN documented as of this encounter Mental Status * Does person have difficulty concentrating/remembering/making decisions? Answer Entry Date Author No 12/19/2024 10:14 AM PET AMBASSADOR Sarah Tello, GONZALO documented in this encounter Discharge Instructions * Discharge Instructions* Bridget Ebony, MIQUEL-RECORDS ANALYSIS MANAGER - 01/26/2025 10:36 AM PET AMBASSADOR Care after Venous Access Structural Heart PFO/ASD Closure Please continue aspirin 81 mg daily and start clopidogrel (plavix) 75mg daily until you have TTE (Transthoracic echocardiogram) with bubble study in 2-3 months. You will be called to schedule this ifit is not already scheduled. Please keep CT appointment at [facility] on 02/09[facility]25. Keep appointment with Dr. [...] questions, please call our cardiology office, . [facility] [address] [facility] [address] [place] [address] Thank you for letting us take care of you! [facility] Cardiology Team AMBASSADOR AMBASSADOR documented in this encounter Medications at Time [...] daily 90 tablet 1 01/27/2025 10:20 AM PET AMBASSADOR 01/27/2025 Contour Plus Test test strip 10/09/2024 cyclobenzaprine (Flexeril) 10 MG tablet THREE TIMES A DAY as needed for muscle spasm 03/20/2024 FLUoxetine (PROzac) 20 MG capsule Take 1 (one) capsule by mouth Every morning and lunchtime Klayesta 098090 UNIT/GM powder APPLY 1 APPLICATION TOPICALLY TWICE [...] Angina 100 tablet 3 11/28/2024 nystatin (Mycostatin) 445405 UNIT/GM cream APPLY TOPICALLY TO THE AFFECTED [...] Maintains hematologic stability Description: INTERVENTIONS: Outcome: Progressing AMBASSADOR * Ebony Gill APRN-CNP - 01/26/2025 1:20 [...] person. They verbalized understanding. Ebony Gill DNP, MIQUEL, WOUND CARE RN-BC [facility] AMBASSADOR * Sveta Lopze RN - 01/12/2025 9:04 AM CST Appointment details and preop instructions sent to patient via email per request: 01/26/25 (8 am arrival time)- PFO closure & Right Heart Catheterization 02/09/25 (10:45 am arrival time- CT cardiac angio Please see instructions for both appointments below: You have been scheduled for a Right Heart Catheterization and Patent Foramen Ovale Closure at [facility] on 01/26/25 at 10 am (please arrive by 8 am). [facility] is located at [address] [place] [address], turn in at the Main Entrance or you can enter by going west on [address]. You may park on the [place] side of garage directly across from the Hospital. Please bring your parking ticket with you for validation. Take elevator to Level 1, exit the elevator to your right and walk straight down the hallway to [facility] desk then the [facility]. Please arrive to the [facility] on First Level at [facility] by 8 am (two hours before start time). Before your procedure, you can expect to have an IV catheter placed, blood drawn, and vital signs measured. You will also clean your skin with a surgical soap and change into a hospital gown. You can expect to store your belongings in a small locker while in the home performance laborer. After sedation, you can expect to spend a few hours being monitored while you wake up. If groin access was used, you can expect to lay flat for 4-6 hours. If you have questions for the hospital on the day of procedure call: [phone] Scheduling/procedure related questions only: [phone] DO NOT eat any solid food after [...] am arrival time Patient Instructions Visit Type: H CT ANGIO HEART CABG W CONTRAST Do not eat or drink for 4 hours prior to the test. This includes chewing gum, alcohol or caffeine of any kind. Location Instruction: The [facility] is located at [address]. From [facility], turn in at the Main Entrance. This will take you to the parking garage. Park on the Blue side of the garage and take the [facility] ([facility]) elevators to the Garden Level. ($2 parking fee with validated ticket at Inside Secure Desk.) Exit the elevator to your right and walk straight down the hallway past the staircase to the end of the orozco. Turn right andcheck in at the waiting room on your right ([facility] [employer] parking is available at the main entrance for $4 (free with handicap tags.) Sveta Lopez RN 01/12/2025 9:11 AM AMBASSADOR documented in this encounter H&P Notes * Ebony Gill, MIQUEL-RECORDS ANALYSIS MANAGER - 01/26/2025 8:09 AM CST [facility] PRE PROCEDURE H&P AND SEDATION NOTE Planned [...] artery: 2+ bilateral Recent Labs Component Name 12/19/2475411/16/2444411/14/24230911/14/242013 WBC 7.5 7.1 8.4 7.4 RBC 4.44 4.25 4.28 4.34 HGB 12.6 12.0 11.9 12.5 HCT 38.3 38.1 36.4 37.9 MCV 86.3 89.6 85.0 87.3 MCHC 32.9 31.5* 32.7 33.0 PLTCOUNT 320 274 296 282 NEUTPCT - - - 66.5 LYMPHPCT - - - 24.7 LYMPHABS - - - 1.82 BASOABS - - - 0.01 Recent Labs Component Name 12/19/2475411/16/2444411/14/24230911/14/242013 POTASSIUM 4.2 4.1 3.8 3.7 CO2 25 24 24 25 BUN 13 11 8 8 CREATININE 0.50* [...] for performance of procedure. Monitoring: heart rate, satellite project site monitor, continuous pulse oximetry, frequent blood pressure [...] Sussy Kaur MD at 01/26/2025 9:29 AM PET AMBASSADOR AMBASSADOR AMBASSADOR documented in this encounter Plan of Treatment Upcoming Encounters Date Type Department Care Team (Late st Contact Info) Description 02/09/2025 11:00 AM PET AMBASSADOR Appointment [facility] CAT SCAN [address] [place] [id number] Eveline Roland APRN-CNP [address] [facility] [address] [place] [address] 02/19/2025 11:00 AM PET AMBASSADOR Office Visit [facility] - Neurology [address] [facility] [place] [phone] Miesha Adamson PA-C [address] [facility] [address] [place] [id number] 03/06/2025 9:20 AM PET AMBASSADOR Office Visit [facility] - Cardiology [address] [facility], [facility] [address] [place] [phone] Sussy Kaur MD [address] [place] [address] Pending Results Name Type Priority Associated Diagnoses Date/Time Cardiac Catheterization Cardiac Cath Cupid Routine PFO (patent foramen ovale) (HCC) History of TIA (transient ischemic attack) 01/26/2025 11:57 AM PET AMBASSADOR ECHO MARY PROCEDURAL Echocardiography Cupid Routine PFO (patent foramen ovale) (HCC) 01/26/2025 12:01 PM PET AMBASSADOR Scheduled Orders Name Type Priority Associated Diagnoses [...] (CALCIUM TOTAL) AM Draw 01/27/2025 8:34 AM PET AMBASSADOR PFO (patent foramen ovale) (HCC) History of TIA (transient ischemic attack) MAGNESIUM BLOOD Routine 01/27/2025 8:34 AM PET AMBASSADOR PFO (patent foramen ovale) (HCC) History of TIA (transient ischemic attack) GLUCOSE - POINT OF CARE Routine 01/27/2025 7:32 AM PET AMBASSADOR CBC W/O DIFFERENTIAL AM Draw 01/27/2025 2:26 AM PET AMBASSADOR PFO (patent foramen ovale) (HCC) History of TIA (transient ischemic attack) GLUCOSE - POINT OF CARE Routine 01/26/2025 9:32 PM PET AMBASSADOR GLUCOSE - POINT OF CARE Routine 01/26/2025 5:20 PM PET AMBASSADOR ECHO LIMITED W CONTRAST W BUBBLE STUDY PENDING DISCHARGE 01/26/2025 4:34 PM PET AMBASSADOR PFO (patent foramen ovale) (HCC) History of TIA (transient ischemic attack) CCL RIGHT HEART CATH Routine 01/26/2025 11:57 AM PET AMBASSADOR PFO (patent foramen ovale) (HCC) History of TIA (transient ischemic attack) Procedure Note - Rayshawn Williamson MD - 01/26/2025 11:57 AM CSTThis note is in progress. Successful ICE guided closure of PFO with 48 mm [place] ASD closuredevice. There is no pulmonary hypertension.(Mean [...] 16 Fr Shth Intro 33Cm 6.1Mm 16Fr [place] Dryseal sheath was inserted. PFO/ASD Patient Prep [...] perclose devices used for closure of 16 costa rican access site in the right common femoral vein. Vascade used for closure of 11 costa rican entry point in the right common femoral vein. Right Heart Cath Cardiac output measurements were performed using the Jahaira method. The catheter was inserted into the right femoral vein. There is no pulmonary hypertension. Recommendations - Recommend dual anti platelet therapy for at least 6 months. - Antibiotics prophylaxis before dental procedures CCL PATENT FORAMEN OVALE CLOSURE Routine 01/26/2025 11:57 AM PET AMBASSADOR PFO (patent foramen ovale) (HCC) History of TIA (transient ischemic attack) Procedure Note - Rayshawn Williamson MD - 01/26/2025 11:57 AM CSTThis note is in progress. Successful ICE guided closure of PFO with 48 mm [place] ASD closuredevice. There is no pulmonary hypertension.(Mean [...] 16 Fr Shth Intro 33Cm 6.1Mm 16Fr [place] Dryseal sheath was inserted. PFO/ASD Patient Prep [...] perclose devices used for closure of 16 costa [place]ican access site in the right common femoral vein. Vascade used for closure of 11 costa rican entry point in the right common femoral vein. Right Heart Cath Cardiac output measurements were performed using the Jahaira method. The catheter was inserted into the right femoral vein. There is no pulmonary hypertension. Recommendations - Recommend dual anti platelet therapy for at least 6 months. - Antibiotics prophylaxis before dental procedures BLOOD TYPE VERIFICATION Routine 01/26/2025 9:33 AM PET AMBASSADOR GLUCOSE - POINT OF CARE Routine 01/26/2025 8:18 AM PET AMBASSADOR TYPE + SCREEN PANEL Routine 01/26/2025 8:06 AM PET AMBASSADOR CBC W/O DIFFERENTIAL JESSICA 01/26/2025 8:06 AM PET AMBASSADOR PFO (patent foramen ovale) (HCC) History of TIA (transient ischemic attack) BASIC METABOLIC PANEL (CALCIUM TOTAL) JESSICA 01/26/2025 8:06 AM PET AMBASSADOR PFO (patent foramen ovale) (HCC) History of TIA (transient ischemic attack) documented in this encounter Results * MAGNESIUM BLOOD (01/27/2025 8:34 AM PET AMBASSADOR) Magnesium 1.7 1.6 - 2.6 mg/dL 01/27/2025 9:15 AM [facility] Blood BLOOD SPECIMEN / Unknown Lab Venipuncture / Unknown 01/27/2025 8:34 AM PET AMBASSADOR 01/27/2025 8:46 AM PET AMBASSADOR Ebony Gill VARIETY PERFORMER-RECORDS ANALYSIS MANAGER LAB - CHEMISTRY ORDERA BLES Final Result [facility] [address] [place] [address], [facility] [phone] * (ABNORMAL) BASIC METABOLIC PANEL (CALCIUM TOTAL) (01/27/2025 8:34 AM [facility]) BUN 9 7 - 26 mg/dL 01/27/2025 9:15 AM [facility] Creatinine 0.52(L) 0.56 - 0.96 mg/dL 01/27/2025 9:15 AM [facility] Sodium 137 136 - 145 mmol/L 01/27/2025 9:15 AM [facility] Potassium 4.1 3.5 - 4.5 mmol/L [...] (2020), per the National Kidney Foundation and British Society of Nephrology recommendations. Blood BLOOD SPECIMEN / Unknown Lab Venipuncture / Unknown 01/27/2025 8:34 AM PET AMBASSADOR 01/27/2025 8:46 AM PET AMBASSADOR us Ebony Gill VARIETY PERFORMER-RECORDS ANALYSIS MANAGER LAB - CHEMISTRY ORDERA BLES Final Result Performing Organization Address City/[facility]/ZIP Co de Phone Number [address] [address], [place] [phone] * (ABNORMAL) GLUCOSE - POINT OF CARE (01/27/2025 7:32 AM PET AMBASSADOR) [facility] Glucose WB/POC 162(H) 70 - 99 mg/dL 01/27/2025 7:54 AM [facility] Specimen Type Arterial/C apillary 01/27/2025 7:54 AM [facility] Blood BLOOD SPECIMEN / Unknown 01/27/2025 7:32 AM PET AMBASSADOR 01/27/2025 7:54 AM PET AMBASSADOR us Sussy Kaur MD LAB - POINT OF CARE ORDERAB LES Final Result Performing Organization Address [facility]/ZIP Co de Phone Number [address] [address], [place] [phone] * (ABNORMAL) CBC W/O DIFFERENTIAL (01/27/2025 2:26 AM PET AMBASSADOR) Pathologist [facility] WBC 8.5 4.0 - 10.7 x10E9/L 01/27/2025 [...] Lab Venipuncture / Unknown 01/27/2025 2:26 AM PET AMBASSADOR 01/27/2025 2:56 AM PET AMBASSADOR us Ebony Gill APRNHUNTER LAB - HEMATOLOGY ORDER WESLEY Final Result [address] [address], [place] [phone] * (ABNORMAL) GLUCOSE - POINT OF CARE (01/26/2025 9:32 PM PET AMBASSADOR) [facility] Glucose WB/POC 184(H) 70 - 99 mg/dL 01/26/2025 9:37 PM [facility] Specimen Type Arterial/C apillary 01/26/2025 9:37 PM [facility] Blood BLOOD SPECIMEN / Unknown 01/26/2025 9:32 PM PET AMBASSADOR 01/26/2025 9:37 PM PET AMBASSADOR us Sussy Kaur MD LAB - POINT OF CARE ORDERAB LES Final Result [address] [address], [place] [phone] * (ABNORMAL) GLUCOSE - POINT OF CARE (01/26/2025 5:20 PM PET AMBASSADOR) Pathologist [facility] Glucose WB/POC 185(H) 70 - 99 mg/dL 01/26/2025 5:23 PM PET AMBASSADOR [facility] Specimen Type Arterial/C apillary 01/26/2025 5:23 PM PET AMBASSADOR [facility] LAB[facility]ORY [facility] Blood BLOOD SPECIMEN / Unknown 01/26/2025 5:20 PM PET AMBASSADOR 01/26/2025 5:23 PM PET AMBASSADOR us Sussy Kaur MD LAB - POINT OF CARE ORDERAB LES Final Result [facility] [address] [place] [address], [facility] [phone] * ECHO LIMITED W CONTRAST W BUBBLE STUDY (01/26/2025 4:34 PM PET AMBASSADOR) Pathologist [facility] Myocardial strain charge 2 unitless SSM CV [...] Region Laterality Modality Ultrasound 01/26/2025 3:46 PM PET AMBASSADOR Narrative 01/26/2025 8:32 PM PET AMBASSADOR Summary * Extremely TDS despite great effort. [...] Exam Date: 01/26/2025 3:46 PM Exam Room: [facility] Patient Status: MDB Study Site: [facility] Primary Location: [facility] EStud Info Technical Quality: Technically Difficult Exam Type: [...] Provider: Ebony Gill Attending Physician: Ebony Gill Business Records Manager: Derik Kiser Measurements Ventricles Name Value Normal [...] Exam Date: 01/26/2025 3:46 PM Exam Room: [facility] Patient Status: MDB Study Site: [facility] Primary Location: [facility] Info [...] Provider: Ebony Gill Attending Physician: Ebony Gill Business Records Manager: eDrik Kiser Measurements Ventricles Name Value Normal LV [...] (2D) 45 % 27-45 LV EF (2D Te[place]) 76 % 54-74 LV Diastolic Volume (4C [...] MD on 01/26/2025 08:32 PM Ebony Gill APRN-RECORDS ANALYSIS MANAGER ECHO CUPID Final Result * BLOOD TYPE VERIFICATION (01/26/2025 9:33 AM PET AMBASSADOR) ABO Rh A POS 01/26/2025 10:21 AM [facility] BLOOD BANK LAB Blood Bank BLOOD SPECIMEN / Unknown Venipuncture / Unknown 01/26/2025 9:33 AM PET AMBASSADOR 01/26/2025 9:35 AM PET AMBASSADOR Ebony Gill VARIETY PERFORMER-RECORDS ANALYSIS MANAGER LAB - BLOOD BANK ORDER WESLEY Final Result Performing Organization Address City/[facility]/ZIP Co de Phone Number [facility] BLOOD BANK LAB [address] [place] [address], [facility] [phone] * (ABNORMAL) GLUCOSE - POINT OF CARE (01/26/2025 8:18 AM PET AMBASSADOR) Glucose WB/POC 115(H) 70 - 99 mg/dL 01/26/2025 8:19 AM PET AMBASSADOR [facility] Specimen Type Venous 01/26/2025 8:19 AM [facility] Blood BLOOD SPECIMEN / Unknown 01/26/2025 8:18 AM PET AMBASSADOR 01/26/2025 8:19 AM PET AMBASSADOR Sussy Kaur MD LAB - POINT OF CARE ORDERAB LES Final Result Performing Organization Address City/[facility]/ZIP Co de Phone Number [facility] [address] [place] [address], [place] [phone] * TYPE + SCREEN PANEL (01/26/2025 8:06 AM PET AMBASSADOR) Pathologist [facility] Antibody Screen NEG 8:59 AM [facility] BLOOD BANK LAB ABO Rh A POS 01/26/2025 8:59 AM [facility] BLOOD [facility] LAB Blood Bank BLOOD SPECIMEN / Unknown Venipuncture / Unknown 01/26/2025 8:06 AM PET AMBASSADOR 01/26/2025 8:16 AM PET AMBASSADOR Ebony Gill VARIETY PERFORMER-RECORDS ANALYSIS MANAGER LAB - BLOOD BANK ORDER WESLEY Final Result [facility] BLOOD BANK LAB [address] [place] [address], [facility] [phone] * (ABNORMAL) CBC W/O DIFFERENTIAL (01/26/2025 8:06 AM [facility]) [facility] WBC 9.1 4.0 - 10.7 x10E9/L 01/26/2025 8:58 AM [facility] RBC Count 4.59 3.90 - 5.20 x10E12/L 01/26/2025 8:58 AM [facility] Hemoglobin 12.7 11.9 - 15.8 g/dL 01/26/2025 8:58 AM [facility] Hematocrit 40.4 34.8 - 46.1 % [...] Unknown Venipuncture / Unknown 01/26/2025 8:06 AM PET AMBASSADOR 01/26/2025 8:30 AM [facility] us Ebony Bridget VARIETY PERFORMER-RECORDS ANALYSIS MANAGER LAB - HEMATOLOGY ORDER WESLEY Final Result [facility] [address] [place] [address], [facility] [phone] * (ABNORMAL) BASIC METABOLIC PANEL (CALCIUM TOTAL) (01/26/2025 8:06 AM [facility]) BUN 13 7 - 26 mg/dL [...] (2020), per the National Kidney Foundation and British Society of Nephrology recommendations. Blood BLOOD SPECIMEN / Unknown Venipuncture / Unknown 01/26/2025 8:06 AM PET AMBASSADOR 01/26/2025 8:32 AM PET AMBASSADOR us Ebony Gill VARIETY PERFORMER-RECORDS ANALYSIS MANAGER LAB - CHEMISTRY ORDERA BLES Final Result [facility] [address] [place] [address], [facility] [phone] documented in this encounter Visit Diagnoses Diagnosis [...] intake., Post-op $ Given 01/26/2025 5:29 PM PET AMBASSADOR 1,000 mg aspirin chew tablet 81 mg 81 mg, Oral, DAILY, First dose on Sun01/27/25 at 0900, Until Discontinued $ Given 01/27/2025 8:24 AM PET AMBASSADOR 81 mg aspirin tablet PRN, Starting on Sun01/26/25 at 1038, Until Sun01/26/25 at 1529, Intra-procedure (CATH) $ Given 01/26/2025 10:38 AM PET AMBASSADOR 325 mg atorvastatin (Lipitor) tablet 60 mg 60 mg, Oral, AT BEDTIME, First dose on Sun01/26/25 at 2100, Until Discontinued $ Given 01/26/2025 9:07 PM PET AMBASSADOR 60 mg ceFAZolin (Ancef) 2,000 mg in NaCl IV 0.9 % 50 mL IVPB CONTINUOUS PRN, Starting on Sun01/26/25 at 1040, Until Sun01/26/25 at 1529, Intra-procedure (CATH) $ New Bag/Syringe 01/26/2025 10:40 AM PET AMBASSADOR 2,000 mg clopidogrel (plaVIX) tablet 75 mg 75 mg, Oral, DAILY, First dose on Sun01/27/25 at 0900, Until Discontinued $ Given 01/27/2025 8:25 AM PET AMBASSADOR 75 mg clopidogrel (plaVIX) tablet PRN, Starting on Sun01/26/25 at 1038, Until Sun01/26/25 at 1529, Intra-procedure (CATH) $ Given 01/26/2025 10:38 AM PET AMBASSADOR 300 mg dextrose IV 12.5 g 12.5 g, [...] OF HYPOGLYCEMIC EVENT. fentaNYL (PF) (Sublimaze) injection PRN, Starting on Sun01/26/25 at 1052, Until Sun01/26/25 at 1529, Intra-procedure (CATH) $ Given 01/26/2025 12:23 PM PET AMBASSADOR 25 mcg $ Given 01/26/2025 12:02 PM PET AMBASSADOR 25 mcg $ Given 01/26/2025 11:13 AM PET AMBASSADOR 25 mcg FLUoxetine (PROzac) capsule 20 mg 20 mg, Oral, DAILY, First dose on Sun01/27/25 at 0900, Until Discontinued $ Given 01/27/2025 8:24 AM PET AMBASSADOR 20 mg glucagon (Glucagen) injection 1 mg [...] NOTIFY PROVIDER OF HYPOGLYCEMIC EVENT. heparin injection PRN, Starting on Sun01/26/25 at 1053, Until Sun01/26/25 at 1529, Intra-procedure (CATH) $ Given 01/26/2025 10:53 AM PET AMBASSADOR 9,000 Units heparin injection PRN, Starting on Sun01/26/25 at 1128, Until Sun01/26/25 at 1529, Intra-procedure (CATH) $ Given 01/26/2025 11:28 AM PET AMBASSADOR 3,000 Units insulin aspart (NovoLOG) pen 0-4 Units 0-4 [...] Disposal required. $ Given 01/26/2025 5:32 PM PET AMBASSADOR 2 Units Abdominal Tissue lidocaine (Lidoderm) 5 % patch 1 patch 1 patch, Administer over 12 Hours, DAILY PRN, MSK pain, Starting on Sun01/26/25 at 1330, Until Sun01/27/25 at 1121, Apply to 1 and remove patch after a max of 12 hours of application within a 24 hour period. $ Applied 01/26/2025 9:08 PM PET AMBASSADOR 1 patch Back lidocaine (Xylocaine) 1 % injection PRN, Starting on Sun01/26/25 at 1041, Until Sun01/26/25 at 1529, Intra-procedure (CATH) $ Given 01/26/2025 10:40 AM PET AMBASSADOR 15 mL Right Groin lisinopril (Prinivil; Zestril) tablet 40 mg 40 mg, Oral, DAILY, First dose on Sun01/27/25 at 0900, Until Discontinued $ Given 01/27/2025 8:24 AM PET AMBASSADOR 40 mg midazolam (Versed) injection PRN, Starting on Sun01/26/25 at 1052, Until Sun01/26/25 at 1529, Intra-procedure (CATH) $ Given 01/26/2025 11:13 AM PET AMBASSADOR 1 mg $ Given 01/26/2025 10:52 AM PET AMBASSADOR 1 mg OLANZapine (ZyPREXA) tablet 10 mg 10 mg, Oral, AT BEDTIME PRN, Anxiety, insomnia, Starting on Sun01/26/25 at 1331, Until Sun01/27/25 at 1121 $ Given 01/26/2025 9:07 PM PET AMBASSADOR 10 mg oxyCODONE (immediate release) (Roxicodone) tablet [...] oral intake. $ Given 01/27/2025 4:42 AM PET AMBASSADOR 5 mg $ Given 01/26/2025 9:07 PM PET AMBASSADOR 5 mg $ Given 01/26/2025 1:50 PM PET AMBASSADOR 5 mg pantoprazole EC (Protonix) tablet 40 mg 40 mg, Oral, DAILY, First dose on Sun01/27/25 at 0900, Until Discontinued, Do not crush, chew, or cut in half. $ Given 01/27/2025 8:25 AM PET AMBASSADOR 40 mg perflutren lipid microsphere (Definity) injection 1.5 mL 1.5 mL, Intravenous, INTRA-PROCEDURE ONCE, 1 dose, On Sun01/26/25 at 1645, Shake well before using. $ Given 01/26/2025 4:35 PM PET AMBASSADOR 1.5 mL protamine injection PRN, Starting on Sun01/26/25 at 1215, Until Sun01/26/25 at 1529, Intra-procedure (CATH) $ Given 01/26/2025 12:15 PM PET AMBASSADOR 20 mg topiramate (Topamax) tablet 50 mg 50 mg, Oral, DAILY, First dose on Sun01/26/25 at 1415, Until Discontinued, Swallow tablets whole if taking orally to avoid a bitter taste. $ Given 01/27/2025 8:25 AM PET AMBASSADOR 50 mg $ Given 01/26/2025 5:27 PM PET AMBASSADOR 50 mg documented in this encounter Active and Recently Administered Medications Times are shown in PET AMBASSADOR. Scheduled Medication Order 01/25/2025 01/26/2025 01/27/2025 aspirin chew tablet 81 mg 81 mg, Oral, DAILY, First dose on Sun01/27/25 at 0900, Until Discontinued 08 ($ Given - Provider: Lisa Ortiz RN) atorvastatin (Lipitor) tablet 60 mg 60 mg, Oral, AT BEDTIME, First dose on Sun01/26/25 at 2100, Until Discontinued 2106 ($ Given - Provider: Nettie Vazquez RN) clopidogrel (plaVIX) tablet 75 mg 75 mg, Oral, DAILY, First dose on Sun01/27/25 at 0900, Until Discontinued 824 ($ Given - Provider: Lisa Ortiz RN) FLUoxetine (PROzac) capsule 20 mg 20 mg, Oral, DAILY, First dose on Sun01/27/25 at 0900, Until Discontinued 823 ($ Given - Provider: Lisa Ortiz RN) insulin aspart (NovoLOG) pen 0-4 Units 0-4 [...] ($ Given - Provider: Lisa Ortiz, GONZALO) pantoprazole EC (Protonix) tablet 40 mg 40 [...] 1635 ($ Given - Provider: Derik Kiser DALILA) topiramate (Topamax) tablet 50 mg 50 mg, [...] Franz, GONZALO)1113 ($ Given - Provider: Fior Franz, RN)1202 ($ Given - Provider: Luis Miguel [...] (CATH) 1053 ($ Given - Provider: Fior Franz RN) heparin injection (CANCELED) PRN, Starting on Sun01/26/25 at 1128, Until Sun01/26/25 at 1529, Intra-procedure (CATH) 1128 ($ Given - Provider: Fior Franz RN) lidocaine (Lidoderm) 5 % patch 1 patch 1 patch, Administer over 12 Hours, DAILY PRN, MSK pain, Starting on Sun01/26/25 at 1330, Until Sun01/27/25 at 1121, Apply to 1 and remove patch after a max of 12 hours of application within a 24 hour period. 2108 ($ Applied - Provider: Nettie Vazquez RN) 0825 (Removed - Provider: Lisa Ortiz RN) lidocaine (Xylocaine) 1 % injection (CANCELED) PRN, Starting on Sun01/26/25 at 1041, Until Sun01/26/25 at 1529, Intra-procedure (CATH) 1040 ($ Given - Provider: Rayshawn Saldivar MD) midazolam (Versed) injection (CANCELED) PRN, Starting on Sun01/26/25 at 1052, Until Sun01/26/25 at 1529, Intra-procedure (CATH) 1052 ($ Given - Provider: Fior Franz, RN)1113 ($ Given - Provider: Fior Franz, RN) nitroGLYCERIN (Nitrostat) tablet 0.4 mg 0.4 [...] Sun01/26/25 at 1331, Until Sun01/27/25 at 1121 2107 ($ Given - Provider: Nettie Vazquez, GONZALO) oxyCODONE (immediate release) (Roxicodone) tablet 5 mg [...] intake. 1350 ($ Given - Provider: Allie Rao RN)2107 ($ Given - Provider: Nettie Vazquez RN) 0442 ($ Given - Provider: Nettie Vazquez RN) protamine injection (CANCELED) PRN, Starting on Sun01/26/25 at 1215, Until Sun01/26/25 at 1529, Intra-procedure (CATH) 1215 ($ Given - Provider: Fior Franz, GONZALO) Linked Groups Order Group 1: dextrose IV [...] portion documented in this encounter Care Teams Life Enrichment Director Relationship Specialty Start Date End Date Herb Tate, [employer] [address] [place] [id number] PCP - General Nurse Practitioner 11/14/24 documented as of this encounter
--- OUTSIDE RECORDS SUMMARY | 2025-01-26 09:40 | XMS_ITS | Encounter Summary ---
Author Organization [facility] Address [address] [place] [address] Care Team Providers Care Talent Buyer Name Role Phone Herb Tate AIR MOVING TECHNICIAN-NEGATIVE TURNER APPRENTICE Primary Care Provider [phone] Reason for Visit * Auth/Cert Specialty Diagnoses / Procedures Referred By Contac t Referred To Contact Diagnoses PFO (patent foramen ovale) (HCC) History of TIA (transient ischemic attack) PFO (patent foramen ovale) (HCC) [Q21.12] History of TIA (transient ischemic attack) [Z86.73] Procedures [place] PERQ TRNSCATH BENJAMIN INTERATRIAL [place] INTRACARD ECHO, THER/DX INTERVENT [place] RIGHT HEART CATH CCL PATENT FORAMEN OVALE CLOSURE CCL RIGHT HEART CATH Referral ID Status Reason Start Date Expiration Date Visits Re quested Visits Authorized [id number] 1 1 Encounter Details Date Type Department Care Team (Late st Contact Info) Description 01/26/2025 9:40 AM ORGANIZATIONAL DEVELOPMENT SPECIALIST - 01/26/2025 11:34 AM ORGANIZATIONAL DEVELOPMENT SPECIALIST Surgery [facility] - Cardiac Packing Line Operator [address] [place] [address] Sussy Kaur MD [address] [place] [address] Patent Foramen Ovale (PFO) Closure Social History [...] and heating? Not hard at all 11/15/2024 [facility] [place] [facility] Occupat ional Health - Occupational Stress [...] any time in the past 12 m [facility], were you homeless or living in a jail (including now)? No 11/15/2024 Comments No Sex and Gender Information Value Date Recorded Sex Assigned at Not on file Legal Sex Female 5:58 PM ORGANIZATIONAL DEVELOPMENT SPECIALIST Gender Identity Not on file Sexual Orientation Not on file documented as of this encounter Last Filed Vital Signs Vital Sign Reading Time Taken Comments Blood Pressure 125/75 01/26/2025 8:45 AM ORGANIZATIONAL DEVELOPMENT SPECIALIST Pulse 87 01/26/2025 8:45 AM ORGANIZATIONAL DEVELOPMENT SPECIALIST Temperature 36.8 C (98.3 F) 01/26/2025 8:16 AM ORGANIZATIONAL DEVELOPMENT SPECIALIST Respiratory Rate 16 01/26/2025 8:45 AM ORGANIZATIONAL DEVELOPMENT SPECIALIST Oxygen Saturation 92% 01/26/2025 8:45 AM ORGANIZATIONAL DEVELOPMENT SPECIALIST Inhaled Oxygen Concentration - - Weight 127.5 kg (281 lb) 01/26/2025 7:55 AM ORGANIZATIONAL DEVELOPMENT SPECIALIST Height 167.6 cm (5' 6) 01/26/2025 7:55 AM ORGANIZATIONAL DEVELOPMENT SPECIALIST Body Mass Index 45.35 01/26/2025 7:55 AM ORGANIZATIONAL DEVELOPMENT SPECIALIST documented in this encounter Functional Status * [...] 12/19/2024 10:14 AM Sarah Stewart RN * [place] Suicide Severity Rating Scale Question Answer Date of Assessment Author In the past 30 days, have yo u wished you were or wished you could go to sleep and not wake up? No 01/26/2025 7:53 AM ORGANIZATIONAL DEVELOPMENT SPECIALIST Nicole Denis, RN In the past 30 days, have tran u actually had any thoughts about killing yourself? No 01/26/2025 7:53 AM ORGANIZATIONAL DEVELOPMENT SPECIALIST Nicole Denis, RN documented as of this encounter Mental Status * Does person have difficulty concentrating/remembering/making decisions? Answer Entry Date Author No 12/19/2024 10:14 AM ORGANIZATIONAL DEVELOPMENT SPECIALIST Sarah Tello, GONZALO documented in this encounter Discharge Instructions * Discharge Instructions* Bridget Ebony, MIQUEL-NEGATIVE TURNER APPRENTICE - 01/26/2025 10:36 AM ORGANIZATIONAL DEVELOPMENT SPECIALIST Care after Venous Access Structural Heart PFO/ASD Closure Please continue aspirin 81 mg daily and start clopidogrel (plavix) 75mg daily until you have TTE (Transthoracic echocardiogram) with bubble study in 2-3 months. You will be called to schedule this ifit is not already scheduled. Please keep CT appointment at [facility] on 02/09/25. Keep appointment with Dr. Kaur [...] cardiology office, . [facility] [address] [place] [address] Thank you for letting us take care of you! [facility] Cardiology Team NIZATIONAL DEVELOPMENT SPECIALIST NIZATIONAL DEVELOPMENT SPECIALIST documented in this encounter Medications at Time [...] daily 90 tablet 1 01/27/2025 10:20 AM ORGANIZATIONAL DEVELOPMENT SPECIALIST 01/27/2025 Contour Plus Test test strip 10/09/2024 cyclobenzaprine (Flexeril) 10 MG tablet THREE TIMES A DAY as needed for muscle spasm 03/20/2024 FLUoxetine (PROzac) 20 MG capsule Take 1 (one) capsule by mouth Every morning and lunchtime Klayesta 324675 UNIT/GM powder APPLY 1 APPLICATION TOPICALLY TWICE [...] Angina 100 tablet 3 11/28/2024 nystatin (Mycostatin) 359365 UNIT/GM cream APPLY TOPICALLY TO THE AFFECTED [...] Maintains hematologic stability Description: INTERVENTIONS: Outcome: Progressing NIZATIONAL DEVELOPMENT SPECIALIST * Ebony Gill APRN-CNP - 01/26/2025 1:20 [...] They verbalized understanding. Ebony Gill DNP, MIQUEL, LICENSING COURT MAGISTRATE-BC [facility] NIZATIONAL DEVELOPMENT SPECIALIST * Sveta Lopez RN - 01/12/2025 9:04 AM CST Appointment details and preop instructions sent to patient via email per request: 01/26/25 (8 am arrival time)- PFO closure & Right Heart Catheterization 02/09/25 (10:45 am arrival time- CT cardiac angio Please see instructions for both appointments below: You have been scheduled for a Right Heart Catheterization and Patent Foramen Ovale Closure at [facility] on 01/26/25 at 10 am (please arrive by 8 am). [facility] is located at [address] [place] [address], turn in at the Main Entrance or you can enter by going west on [address]. You may park on the [place] side of garage directly across from the Hospital. Please bring your parking ticket with you for validation. Take elevator to Level 1, exit the elevator to your right and walk straight down the hallway to [facility] desk then the bright box Lounge. Please arrive to the bright box Lounge on First Level at [facility] by 8 am (two hours before start time). Before your procedure, you can expect to have an IV catheter placed, blood drawn, and vital signs measured. You will also clean your skin with a surgical soap and change into a hospital gown. You can expect to store your belongings in a small locker while in the cook house laborer. After sedation, you can expect to spend a few hours being monitored while you wake up. If groin access was used, you can expect to lay flat for 4-6 hours. If you have questions for the hospital on the day of procedure call: [phone] Scheduling/procedure related questions only: [phone] DO NOT eat any solid food after [...] caffeine of any kind. Location Instruction: The [facility] is located at [address] [facility]. From [facility], turn in at the Main Entrance. This will take you to the parking garage. Park on the Blue side of the garage and take the [facility] ([facility]) elevators to the Garden Level. ($2 parking fee with validated ticket at The 5th Quarter Desk.) Exit the elevator to your right and walk straight down the hallway past the staircase to the end of the orozco. Turn right andcheck in at the waiting room on your right ([facility]). Allergy Specialist parking is available at the main entrance for $4 (free with handicap tags.) Sveta Lopez RN 01/12/2025 9:11 AM NIZATIONAL DEVELOPMENT SPECIALIST documented in this encounter H&P Notes * Ebony Gill, MIQUEL-NEGATIVE TURNER APPRENTICE - 01/26/2025 8:09 AM CST [facility] PRE PROCEDURE H&P AND SEDATION [...] for performance of procedure. Monitoring: heart rate, ground instructor basic, continuous pulse oximetry, frequent blood pressure checks,level [...] Sussy Kaur MD at 01/26/2025 9:29 AM ORGANIZATIONAL DEVELOPMENT SPECIALIST NIZATIONAL DEVELOPMENT SPECIALIST NIZATIONAL DEVELOPMENT SPECIALIST documented in this encounter Plan of Treatment Upcoming Encounters Date Type Department Care Team (Late st Contact Info) Description 02/09/2025 11:00 AM ORGANIZATIONAL DEVELOPMENT SPECIALIST Appointment [facility] CAT SCAN [address] [place] [phone] Eveline Roland APRN-CNP [address] [facility] [address] [place] [address] 02/19/2025 11:00 AM ORGANIZATIONAL DEVELOPMENT SPECIALIST Office Visit [facility] - Neurology [address] [facility] [place] [phone] Miesha Adamson PA-C [address] [facility] [address] [place] [phone] 03/06/2025 9:20 AM ORGANIZATIONAL DEVELOPMENT SPECIALIST Office Visit [facility] - Cardiology [address] [facility] [address] [place] [phone] Sussy Kaur MD [address] [place] [address] Pending Results Name Type Priority Associated Diagnoses Date/Time Cardiac Catheterization Cardiac Cath Cupid Routine PFO (patent foramen ovale) (HCC) History of TIA (transient ischemic attack) 01/26/2025 11:57 AM ORGANIZATIONAL DEVELOPMENT SPECIALIST ECHO MARY PROCEDURAL Echocardiography Cupid Routine PFO (patent foramen ovale) (HCC) 01/26/2025 12:01 PM ORGANIZATIONAL DEVELOPMENT SPECIALIST Scheduled Orders Name Type Priority Associated Diagnoses [...] (CALCIUM TOTAL) AM Draw 01/27/2025 8:34 AM ORGANIZATIONAL DEVELOPMENT SPECIALIST PFO (patent foramen ovale) (HCC) History of TIA (transient ischemic attack) MAGNESIUM BLOOD Routine 01/27/2025 8:34 AM ORGANIZATIONAL DEVELOPMENT SPECIALIST PFO (patent foramen ovale) (HCC) History of TIA (transient ischemic attack) GLUCOSE - POINT OF CARE Routine 01/27/2025 7:32 AM ORGANIZATIONAL DEVELOPMENT SPECIALIST CBC W/O DIFFERENTIAL AM Draw 01/27/2025 2:26 AM ORGANIZATIONAL DEVELOPMENT SPECIALIST PFO (patent foramen ovale) (HCC) History of TIA (transient ischemic attack) GLUCOSE - POINT OF CARE Routine 01/26/2025 9:32 PM ORGANIZATIONAL DEVELOPMENT SPECIALIST GLUCOSE - POINT OF CARE Routine 01/26/2025 5:20 PM ORGANIZATIONAL DEVELOPMENT SPECIALIST ECHO LIMITED W CONTRAST W BUBBLE STUDY PENDING DISCHARGE 01/26/2025 4:34 PM ORGANIZATIONAL DEVELOPMENT SPECIALIST PFO (patent foramen ovale) (HCC) History of TIA (transient ischemic attack) CCL RIGHT HEART CATH Routine 01/26/2025 11:57 AM ORGANIZATIONAL DEVELOPMENT SPECIALIST PFO (patent foramen ovale) (HCC) History of TIA (transient ischemic attack) Procedure Note - Rayshawn Williamson MD - 01/26/2025 11:57 AM CSTThis note is in progress. Successful ICE guided closure of PFO with 48 mm Harper ASD closuredevice. There is no pulmonary hypertension.(Mean [...] 16 Fr Shth Intro 33Cm 6.1Mm 16Fr Harper Dryseal sheath was inserted. PFO/ASD Patient Prep [...] perclose devices used for closure of 16 beninese access site in the right common femoral vein. Vascade used for closure of 11 beninese entry point in the right common femoral vein. Right Heart Cath Cardiac output measurements were performed using the Jahaira method. The catheter was inserted into the right femoral vein. There is no pulmonary hypertension. Recommendations - Recommend dual anti platelet therapy for at least 6 months. - Antibiotics prophylaxis before dental procedures CCL PATENT FORAMEN OVALE CLOSURE Routine 01/26/2025 11:57 AM ORGANIZATIONAL DEVELOPMENT SPECIALIST PFO (patent foramen ovale) (HCC) History of TIA (transient ischemic attack) Procedure Note - Rayshawn Williamson MD - 01/26/2025 11:57 AM CSTThis note is in progress. Successful ICE guided closure of PFO with 48 mm Harper ASD closuredevice. There is no pulmonary hypertension.(Mean [...] 16 Fr Shth Intro 33Cm 6.1Mm 16Fr Harper Dryseal sheath was inserted. PFO/ASD Patient Prep [...] perclose devices used for closure of 16 beninese access site in the right common femoral vein. Vascade used for closure of 11 beninese entry point in the right common femoral vein. Right Heart Cath Cardiac output measurements were performed using the Jahaira method. The catheter was inserted into the right femoral vein. There is no pulmonary hypertension. Recommendations - Recommend dual anti platelet therapy for at least 6 months. - Antibiotics prophylaxis before dental procedures BLOOD TYPE VERIFICATION Routine 01/26/2025 9:33 AM ORGANIZATIONAL DEVELOPMENT SPECIALIST GLUCOSE - POINT OF CARE Routine 01/26/2025 8:18 AM ORGANIZATIONAL DEVELOPMENT SPECIALIST TYPE + SCREEN PANEL Routine 01/26/2025 8:06 AM ORGANIZATIONAL DEVELOPMENT SPECIALIST CBC W/O DIFFERENTIAL JESSICA 01/26/2025 8:06 AM ORGANIZATIONAL DEVELOPMENT SPECIALIST PFO (patent foramen ovale) (HCC) History of TIA (transient ischemic attack) BASIC METABOLIC PANEL (CALCIUM TOTAL) JESSICA 01/26/2025 8:06 AM ORGANIZATIONAL DEVELOPMENT SPECIALIST PFO (patent foramen ovale) (HCC) History of TIA (transient ischemic attack) documented in this encounter Results * MAGNESIUM BLOOD (01/27/2025 8:34 AM ORGANIZATIONAL DEVELOPMENT SPECIALIST) Magnesium 1.7 1.6 - 2.6 mg/dL 01/27/2025 9:15 AM [facility] Blood BLOOD SPECIMEN / Unknown Lab Venipuncture / Unknown 01/27/2025 8:34 AM ORGANIZATIONAL DEVELOPMENT SPECIALIST 01/27/2025 8:46 AM ORGANIZATIONAL DEVELOPMENT SPECIALIST Ebony Gill AIR MOVING TECHNICIAN-NEGATIVE TURNER APPRENTICE LAB - CHEMISTRY ORDERA BLES Final Result [facility] [address] [place] [address], [facility] [phone] * (ABNORMAL) BASIC METABOLIC PANEL (CALCIUM TOTAL) (01/27/2025 8:34 AM [facility]) BUN 9 7 - 26 mg/dL 01/27/2025 9:15 AM [facility] Creatinine 0.52(L) 0.56 - 0.96 mg/dL 01/27/2025 9:15 AM [facility] Sodium 137 136 - 145 mmol/L 01/27/2025 9:15 AM [facility] Potassium 4.1 3.5 - 4.5 mmol/L 01/27/2025 9:15 AM [facility] Chloride 106 98 - 107 mmol/L 01/27/2025 9:15 AM [facility] CO2 23 22 - 29 mmol/L 01/27/2025 9:15 AM [facility] Glucose 200(H) 70 - 99 mg/dL 01/27/2025 9:15 AM [facility] Calcium 8.9 8.4 - 10.2 mg/dL 01/27/2025 9:15 AM [facility] Anion Gap 8 6 - 16 01/27/2025 9:15 AM [facility] BUN/Creatinine Ratio 17 7 - 23 01/27/2025 9:15 AM [facility] Osmolality Calculated 288 275 - 295 mOsm/kg 01/27/2025 9:15 AM [facility] eGFR by CKD-EPI >90 >=90 mL/min/1.7 3 m2 01/27/2025 9:15 AM [facility] Comment:Estimated Glomerular Filtration Rate (eGFR) calculated using the CKD-EPI Creatinine Equation (2020), per the National Kidney Foundation and [place] [employer] Society of Nephrology recommendations. Blood BLOOD SPECIMEN / Unknown Lab Venipuncture / Unknown 01/27/2025 8:34 AM ORGANIZATIONAL DEVELOPMENT SPECIALIST 01/27/2025 8:46 AM ORGANIZATIONAL DEVELOPMENT SPECIALIST us Ebony Gill AIR MOVING TECHNICIAN-NEGATIVE TURNER APPRENTICE LAB - CHEMISTRY ORDERA BLES Final Result Performing Organization Address City/[facility]/ZIP Co de Phone Number [address] [address], [place] [phone] * (ABNORMAL) GLUCOSE - POINT OF CARE (01/27/2025 7:32 AM ORGANIZATIONAL DEVELOPMENT SPECIALIST) [facility] Glucose WB/POC 162(H) 70 - 99 mg/dL 01/27/2025 7:54 AM [facility] Specimen Type Arterial/C apillary 01/27/2025 7:54 AM [facility] Blood BLOOD SPECIMEN / Unknown 01/27/2025 7:32 AM ORGANIZATIONAL DEVELOPMENT SPECIALIST 01/27/2025 7:54 AM ORGANIZATIONAL DEVELOPMENT SPECIALIST us Sussy Kaur MD LAB - POINT OF CARE ORDERAB LES Final Result Performing Organization Address [facility]/ZIP Co de Phone Number [address] [address], [place] [phone] * (ABNORMAL) CBC W/O DIFFERENTIAL (01/27/2025 2:26 AM ORGANIZATIONAL DEVELOPMENT SPECIALIST) Pathologist [facility] WBC 8.5 4.0 - 10.7 x10E9/L 01/27/2025 3:03 AM [facility] RBC Count 4.09 3.90 - 5.20 x10E12/L 01/27/2025 3:03 AM [facility] Hemoglobin 11.3(L) 11.9 - 15.8 g/dL 01/27/2025 3:03 AM [facility] Hematocrit 36.1 34.8 - 46.1 % 01/27/2025 3:03 AM [facility] MCV 88.3 80.0 - 98.0 fL 01/27/2025 3:03 AM [facility] MCH 27.6 26.7 - 33.6 pg 01/27/2025 3:03 AM [facility] MCHC 31.3(L) 31.7 - 36.3 g/dL 01/27/2025 3:03 AM [facility] RDW-CV 13.8 11.3 - 14.8 % 01/27/2025 3:03 AM [facility] Platelet Count 176 150 - 420 x10E9/L 01/27/2025 3:03 AM [facility] MPV 11.4 7.8 - 11.4 fL 01/27/2025 3:03 AM [facility] Blood BLOOD SPECIMEN / Unknown Lab Venipuncture / Unknown 01/27/2025 2:26 AM ORGANIZATIONAL DEVELOPMENT SPECIALIST 01/27/2025 2:56 AM ORGANIZATIONAL DEVELOPMENT SPECIALIST us Ebony Gill APRNHUNTER LAB - HEMATOLOGY ORDER WESLEY Final Result [address] [address], [place] [phone] * (ABNORMAL) GLUCOSE - POINT OF CARE (01/26/2025 9:32 PM ORGANIZATIONAL DEVELOPMENT SPECIALIST) [facility] Glucose WB/POC 184(H) 70 - 99 mg/dL 01/26/2025 9:37 PM [facility] Specimen Type Arterial/C apillary 01/26/2025 9:37 PM [facility] Blood BLOOD SPECIMEN / Unknown 01/26/2025 9:32 PM ORGANIZATIONAL DEVELOPMENT SPECIALIST 01/26/2025 9:37 PM ORGANIZATIONAL DEVELOPMENT SPECIALIST us Sussy Kaur MD LAB - POINT OF CARE ORDERAB LES Final Result [address] [address], [place] [phone] * (ABNORMAL) GLUCOSE - POINT OF CARE (01/26/2025 5:20 PM ORGANIZATIONAL DEVELOPMENT SPECIALIST) Pathologist [facility] Glucose WB/POC 185(H) 70 - 99 mg/dL 01/26/2025 5:23 PM ORGANIZATIONAL DEVELOPMENT SPECIALIST [facility] Specimen Type Arterial/C apillary 01/26/2025 5:23 PM ORGANIZATIONAL DEVELOPMENT SPECIALIST [facility] Blood BLOOD SPECIMEN / Unknown 01/26/2025 5:20 PM ORGANIZATIONAL DEVELOPMENT SPECIALIST 01/26/2025 5:23 PM ORGANIZATIONAL DEVELOPMENT SPECIALIST us Sussy Kaur MD LAB - POINT OF CARE ORDERAB LES Final Result [facility] [address] [place] [address], [facility] [phone] * ECHO LIMITED W CONTRAST W BUBBLE STUDY (01/26/2025 4:34 PM ORGANIZATIONAL DEVELOPMENT SPECIALIST) Pathologist [facility] Myocardial strain charge 2 unitless SSM CV [...] Region Laterality Modality Ultrasound 01/26/2025 3:46 PM ORGANIZATIONAL DEVELOPMENT SPECIALIST Narrative 01/26/2025 8:32 PM ORGANIZATIONAL DEVELOPMENT SPECIALIST Summary * Extremely TDS despite great effort. [...] Exam Date: 01/26/2025 3:46 PM Exam Room: [facility] Patient Status: MDB Study Site: [facility] Primary Location: [facility] EStud Info Technical Quality: Technically Difficult Exam [...] Provider: Ebony Gill Attending Physician: Ebony Gill Manufacturing Lab Technician: Derik Kiser Measurements Ventricles Name Value Normal [...] Exam Date: 01/26/2025 3:46 PM Exam Room: [facility] Patient Status: MDB Study Site: [facility] Primary Location: [facility] Info Technical Quality: Technically Difficult [...] Provider: Ebony Gill Attending Physician: Ebony Gill Manufacturing Lab Technician: Derik Kiser Measurements Ventricles Name Value Normal [...] MD on 01/26/2025 08:32 PM Ebony Gill APRN-NEGATIVE TURNER APPRENTICE ECHO CUPID Final Result * BLOOD TYPE VERIFICATION (01/26/2025 9:33 AM ORGANIZATIONAL DEVELOPMENT SPECIALIST) ABO Rh A POS 01/26/2025 10:21 AM [facility] LAB Blood Bank BLOOD SPECIMEN / Unknown Venipuncture / Unknown 01/26/2025 9:33 AM ORGANIZATIONAL DEVELOPMENT SPECIALIST 01/26/2025 9:35 AM ORGANIZATIONAL DEVELOPMENT SPECIALIST Ebony Gill AIR MOVING TECHNICIAN-NEGATIVE TURNER APPRENTICE LAB - BLOOD BANK ORDER WESLEY Final Result Performing Organization Address City/[facility]/ZIP Co de Phone Number [facility] [address] [place] [address], [facility] [phone] * (ABNORMAL) GLUCOSE - POINT OF CARE (01/26/2025 8:18 AM ORGANIZATIONAL DEVELOPMENT SPECIALIST) Glucose WB/POC 115(H) 70 - 99 mg/dL 01/26/2025 8:19 AM ORGANIZATIONAL DEVELOPMENT SPECIALIST [facility] Specimen Type Venous 01/26/2025 8:19 AM [facility] Blood BLOOD SPECIMEN / Unknown 01/26/2025 8:18 AM ORGANIZATIONAL DEVELOPMENT SPECIALIST 01/26/2025 8:19 AM ORGANIZATIONAL DEVELOPMENT SPECIALIST Sussy Kaur MD LAB - POINT OF CARE ORDERAB LES Final Result Performing Organization Address City/[facility]/ZIP Co de Phone Number [facility] [address] [place] [address], [place] [phone] * TYPE + SCREEN PANEL (01/26/2025 8:06 AM ORGANIZATIONAL DEVELOPMENT SPECIALIST) Pathologist [facility] Antibody Screen NEG 8:59 AM [facility] ABO Rh A POS 01/26/2025 8:59 AM [facility] BLOOD [facility] LAB Blood Bank BLOOD SPECIMEN / Unknown Venipuncture / Unknown 01/26/2025 8:06 AM ORGANIZATIONAL DEVELOPMENT SPECIALIST 01/26/2025 8:16 AM ORGANIZATIONAL DEVELOPMENT SPECIALIST Ebony Gill AIR MOVING TECHNICIAN-NEGATIVE TURNER APPRENTICE LAB - BLOOD BANK ORDER WESLEY Final Result [facility] B[facility] [address] [place] [address], [facility] [phone] * (ABNORMAL) CBC W/O DIFFERENTIAL (01/26/2025 8:06 AM [facility]) [facility] WBC 9.1 4.0 - 10.7 x10E9/L 01/26/2025 8:58 AM [facility] RBC Count 4.59 3.90 - 5.20 x10E12/L 01/26/2025 8:58 AM [facility] Hemoglobin 12.7 11.9 - 15.8 g/dL 01/26/2025 8:58 AM [facility] Hematocrit 40.4 34.8 - 46.1 % 01/26/2025 8:58 AM [facility] MCV 88.0 80.0 - 98.0 fL 01/26/2025 8:58 AM [facility] MCH 27.7 26.7 - 33.6 pg 01/26/2025 8:58 AM [facility] MCHC 31.4(L) 31.7 - 36.3 g/dL 01/26/2025 8:58 AM [facility] RDW-CV 13.7 11.3 - 14.8 % 01/26/2025 8:58 AM [facility] Platelet Count 267 150 - 420 x10E9/L 01/26/2025 8:58 AM [facility] MPV 10.2 7.8 - 11.4 fL 01/26/2025 8:58 AM [facility] Blood BLOOD SPECIMEN / Unknown Venipuncture / Unknown 01/26/2025 8:06 AM ORGANIZATIONAL DEVELOPMENT SPECIALIST 01/26/2025 8:30 AM [facility] us Ebony Bridget AIR MOVING TECHNICIAN-NEGATIVE TURNER APPRENTICE LAB - HEMATOLOGY ORDER WESLEY Final Result [facility] [address] [place] [address], [facility] [phone] * (ABNORMAL) BASIC METABOLIC PANEL (CALCIUM TOTAL) (01/26/2025 8:06 AM [facility]) BUN 13 7 - 26 mg/dL 01/26/2025 9:09 AM [facility] Creatinine 0.49(L) 0.56 - 0.96 mg/dL 01/26/2025 9:09 AM [facility] Sodium 138 136 - 145 mmol/L 01/26/2025 9:09 AM [facility] Potassium 4.4 3.5 - 4.5 mmol/L 01/26/2025 9:09 AM [facility] Chloride 107 98 - 107 mmol/L 01/26/2025 9:09 AM [facility] CO2 23 22 - 29 mmol/L 01/26/2025 9:09 AM [facility] Glucose 114(H) 70 - 99 mg/dL 01/26/2025 9:09 AM [facility] Calcium 9.0 8.4 - 10.2 mg/dL 01/26/2025 9:09 AM [facility] Anion Gap 8 6 - 16 01/26/2025 9:09 AM [facility] BUN/Creatinine Ratio 27(H) 7 - 23 01/26/2025 9:09 AM [facility] Osmolality Calculated 287 275 - 295 mOsm/kg 01/26/2025 9:09 AM [facility] eGFR by CKD-EPI >90 >=90 mL/min/1.7 3 m2 01/26/2025 9:09 AM [facility] Comment:Estimated Glomerular Filtration Rate (eGFR) calculated using the CKD-EPI Creatinine Equation (2020), per the National Kidney Foundation and [place] [employer] of Nephrology recommendations. Blood BLOOD SPECIMEN / Unknown Venipuncture / Unknown 01/26/2025 8:06 AM ORGANIZATIONAL DEVELOPMENT SPECIALIST 01/26/2025 8:32 AM ORGANIZATIONAL DEVELOPMENT SPECIALIST us Ebony Gill AIR MOVING TECHNICIAN-NEGATIVE TURNER APPRENTICE LAB - CHEMISTRY ORDERA BLES Final Result [facility] [address] [place] [address], [facility] [phone] documented in this encounter Visit Diagnoses Diagnosis [...] intake., Post-op $ Given 01/26/2025 5:29 PM ORGANIZATIONAL DEVELOPMENT SPECIALIST 1,000 mg aspirin chew tablet 81 mg 81 mg, Oral, DAILY, First dose on Sun01/27/25 at 0900, Until Discontinued $ Given 01/27/2025 8:24 AM ORGANIZATIONAL DEVELOPMENT SPECIALIST 81 mg aspirin tablet PRN, Starting on Sun01/26/25 at 1038, Until Sun01/26/25 at 1529, Intra-procedure (CATH) $ Given 01/26/2025 10:38 AM ORGANIZATIONAL DEVELOPMENT SPECIALIST 325 mg atorvastatin (Lipitor) tablet 60 mg 60 mg, Oral, AT BEDTIME, First dose on Sun01/26/25 at 2100, Until Discontinued $ Given 01/26/2025 9:07 PM ORGANIZATIONAL DEVELOPMENT SPECIALIST 60 mg ceFAZolin (Ancef) 2,000 mg in NaCl IV 0.9 % 50 mL IVPB CONTINUOUS PRN, Starting on Sun01/26/25 at 1040, Until Sun01/26/25 at 1529, Intra-procedure (CATH) $ New Bag/Syringe 01/26/2025 10:40 AM ORGANIZATIONAL DEVELOPMENT SPECIALIST 2,000 mg clopidogrel (plaVIX) tablet 75 mg 75 mg, Oral, DAILY, First dose on Sun01/27/25 at 0900, Until Discontinued $ Given 01/27/2025 8:25 AM ORGANIZATIONAL DEVELOPMENT SPECIALIST 75 mg clopidogrel (plaVIX) tablet PRN, Starting on Sun01/26/25 at 1038, Until Sun01/26/25 at 1529, Intra-procedure (CATH) $ Given 01/26/2025 10:38 AM ORGANIZATIONAL DEVELOPMENT SPECIALIST 300 mg dextrose IV 12.5 g 12.5 [...] Intra-procedure (CATH) $ Given 01/26/2025 12:23 PM ORGANIZATIONAL DEVELOPMENT SPECIALIST 25 mcg $ Given 01/26/2025 12:02 PM ORGANIZATIONAL DEVELOPMENT SPECIALIST 25 mcg $ Given 01/26/2025 11:13 AM ORGANIZATIONAL DEVELOPMENT SPECIALIST 25 mcg FLUoxetine (PROzac) capsule 20 mg 20 mg, Oral, DAILY, First dose on Sun01/27/25 at 0900, Until Discontinued $ Given 01/27/2025 8:24 AM ORGANIZATIONAL DEVELOPMENT SPECIALIST 20 mg glucagon (Glucagen) injection 1 mg [...] Intra-procedure (CATH) $ Given 01/26/2025 10:53 AM ORGANIZATIONAL DEVELOPMENT SPECIALIST 9,000 Units heparin injection PRN, Starting on Sun01/26/25 at 1128, Until Sun01/26/25 at 1529, Intra-procedure (CATH) $ Given 01/26/2025 11:28 AM ORGANIZATIONAL DEVELOPMENT SPECIALIST 3,000 Units insulin aspart (NovoLOG) pen 0-4 [...] Disposal required. $ Given 01/26/2025 5:32 PM ORGANIZATIONAL DEVELOPMENT SPECIALIST 2 Units Abdominal Tissue lidocaine (Lidoderm) 5 % patch 1 patch 1 patch, Administer over 12 Hours, DAILY PRN, MSK pain, Starting on Sun01/26/25 at 1330, Until Sun01/27/25 at 1121, Apply to 1 and remove patch after a max of 12 hours of application within a 24 hour period. $ Applied 01/26/2025 9:08 PM ORGANIZATIONAL DEVELOPMENT SPECIALIST 1 patch Back lidocaine (Xylocaine) 1 % injection PRN, Starting on Sun01/26/25 at 1041, Until Sun01/26/25 at 1529, Intra-procedure (CATH) $ Given 01/26/2025 10:40 AM ORGANIZATIONAL DEVELOPMENT SPECIALIST 15 mL Right Groin lisinopril (Prinivil; Zestril) tablet 40 mg 40 mg, Oral, DAILY, First dose on Sun01/27/25 at 0900, Until Discontinued $ Given 01/27/2025 8:24 AM ORGANIZATIONAL DEVELOPMENT SPECIALIST 40 mg midazolam (Versed) injection PRN, Starting on Sun01/26/25 at 1052, Until Sun01/26/25 at 1529, Intra-procedure (CATH) $ Given 01/26/2025 11:13 AM ORGANIZATIONAL DEVELOPMENT SPECIALIST 1 mg $ Given 01/26/2025 10:52 AM ORGANIZATIONAL DEVELOPMENT SPECIALIST 1 mg OLANZapine (ZyPREXA) tablet 10 mg 10 mg, Oral, AT BEDTIME PRN, Anxiety, insomnia, Starting on Sun01/26/25 at 1331, Until Sun01/27/25 at 1121 $ Given 01/26/2025 9:07 PM ORGANIZATIONAL DEVELOPMENT SPECIALIST 10 mg oxyCODONE (immediate release) (Roxicodone) tablet [...] oral intake. $ Given 01/27/2025 4:42 AM ORGANIZATIONAL DEVELOPMENT SPECIALIST 5 mg $ Given 01/26/2025 9:07 PM ORGANIZATIONAL DEVELOPMENT SPECIALIST 5 mg $ Given 01/26/2025 1:50 PM ORGANIZATIONAL DEVELOPMENT SPECIALIST 5 mg pantoprazole EC (Protonix) tablet 40 mg 40 mg, Oral, DAILY, First dose on Sun01/27/25 at 0900, Until Discontinued, Do not crush, chew, or cut in half. $ Given 01/27/2025 8:25 AM ORGANIZATIONAL DEVELOPMENT SPECIALIST 40 mg perflutren lipid microsphere (Definity) injection 1.5 mL 1.5 mL, Intravenous, INTRA-PROCEDURE ONCE, 1 dose, On Sun01/26/25 at 1645, Shake well before using. $ Given 01/26/2025 4:35 PM ORGANIZATIONAL DEVELOPMENT SPECIALIST 1.5 mL protamine injection PRN, Starting on Sun01/26/25 at 1215, Until Sun01/26/25 at 1529, Intra-procedure (CATH) $ Given 01/26/2025 12:15 PM ORGANIZATIONAL DEVELOPMENT SPECIALIST 20 mg topiramate (Topamax) tablet 50 mg 50 mg, Oral, DAILY, First dose on Sun01/26/25 at 1415, Until Discontinued, Swallow tablets whole if taking orally to avoid a bitter taste. $ Given 01/27/2025 8:25 AM ORGANIZATIONAL DEVELOPMENT SPECIALIST 50 mg $ Given 01/26/2025 5:27 PM ORGANIZATIONAL DEVELOPMENT SPECIALIST 50 mg documented in this encounter Active and Recently Administered Medications Times are shown in ORGANIZATIONAL DEVELOPMENT SPECIALIST. Scheduled Medication Order 01/25/2025 01/26/2025 01/27/2025 aspirin [...] portion documented in this encounter Care Teams Talent Buyer Relationship Specialty Start Date End Date Herb Tate, MIQUEL-NEGATIVE TURNER APPRENTICE [address] [place] [id number] PCP - General Nurse Practitioner 11/14/24 documented as of this encounter
--- OUTSIDE RECORDS SUMMARY | 2025-01-26 09:56 | XMS_ITS | Encounter Summary ---
Author Organization [facility] Address [address] [facility] [place] [address] Care Team Providers Care Mine Development Engineer Name Role Phone Herb Tate PANEL MACHINE OPERATOR-CHIEF WRITER Primary Care Provider [phone] Reason for Visit * Auth/Cert Specialty Diagnoses / Procedures Referred By Contac t Referred To Contact Diagnoses PFO (patent foramen ovale) (HCC) History of TIA (transient ischemic attack) PFO (patent foramen ovale) (HCC) [Q21.12] History of TIA (transient ischemic attack) [Z86.73] Procedures UT PERQ TRNSCATH BENJAMIN INTERATRIAL UT INTRACARD ECHO, THER/DX INTERVENT UT RIGHT HEART CATH CCL PATENT FORAMEN [place] CLOSURE CCL RIGHT HEART CATH Referral ID Status Reason Start Date Expiration Date Visits Re quested Visits Authorized [id number] 1 1 Encounter Details Date Type Department Care Team (Latest Contact Info) Description 01/26/2025 9:56 AM CIVIL TRANSPORTATION ENGINEER - 01/26/2025 11:59 PM CIVIL TRANSPORTATION ENGINEER Hospital Encounter [facility] - Cardiac Icer Hand [address] [place] [address] Sussy Kaur MD [address] [facility] [address] [place] [address] Discharge Disposition: Home or Self Care Social [...] and heating? Not hard at all 11/15/2024 [facility] [place] of Occupat ional Health - Occupational Stress [...] any time in the past 12 m [facility], were you homeless or living in a senior care (including now)? No 11/15/2024 Comments No Sex and Gender Information Value Date Recorded Sex Assigned at Not on file Legal Sex Female 5:58 PM CIVIL TRANSPORTATION ENGINEER Gender Identity Not on file Sexual Orientation Not on file documented as of this encounter Functional Status * Is person deaf or have serious [...] 12/19/2024 10:14 AM Sarah Stewart RN documented as of this encounter Mental Status * Does person have difficulty concentrating/remembering/making decisions? Answer Entry Date Author No 12/19/2024 10:14 AM Sarah Stewart RN documented in this encounter Medications at Time [...] daily 90 tablet 1 01/27/2025 10:20 AM CIVIL TRANSPORTATION ENGINEER 01/27/2025 Contour Plus Test test strip 10/09/2024 cyclobenzaprine (Flexeril) 10 MG tablet THREE TIMES A DAY as needed for muscle spasm 03/20/2024 FLUoxetine (PROzac) 20 MG capsule Take 1 (one) capsule by mouth Every morning and lunchtime Klayesta 649199 UNIT/GM powder APPLY 1 APPLICATION TOPICALLY TWICE [...] Angina 100 tablet 3 11/28/2024 nystatin (Mycostatin) 483225 UNIT/GM cream APPLY TOPICALLY TO THE AFFECTED [...] 1 (one) tablet by mouth once daily celecoxib (CeleBREX) 100 MG capsule 10/31/2024 5 ketorolac (Toradol) 10 MG tablet TAKE 1 TABLET BY MOUTH EVERY 8 HOURS NEEDED AFTER A MEAL FOR PAIN 11/02/2024 5 levocetirizine (Xyzal) 5 MG tablet Take 1 (one) tablet by mouth 5 ondansetron (Zofran) 4 MG tablet Take 1 (one) tablet by mouth every 8 hours as needed 5 documented as of this encounter Plan of Treatment Upcoming Encounters Date Type Department Care Team (Late st Contact Info) Description 02/09/2025 11:00 AM CIVIL TRANSPORTATION ENGINEER Appointment [facility] CAT SCAN [address] [place] [phone] Eveline Roland APRN-CHIEF WRITER [address] [facility] [address] [place] [address] 02/19/2025 11:00 AM CIVIL TRANSPORTATION ENGINEER Office Visit [facility] - Neurology [address] [facility] [place] [address] Miesha Admason PA-C [address] [facility] [address] [place] [phone] 03/06/2025 9:20 AM CIVIL TRANSPORTATION ENGINEER Office Visit [facility] - Cardiology [address] [facility] [address] [place] [phone] Sussy Kaur MD [address] [facility] [address] [place] [address] Pending Results Name Type Priority Associated Diagnoses Date/Time ECHO MARY PROCEDURAL Echocardiography Cupid Routine PFO (patent foramen ovale) ([facility]) 01/26/2025 12:01 PM CIVIL TRANSPORTATION ENGINEER documented as of this encounter Visit Diagnoses Not on filedocumented in this encounter Care Teams Mine Development Engineer Relationship Specialty Start Date End Date Herb Tate, PANEL MACHINE OPERATOR-CHIEF WRITER [address] [place] [phone] PCP - General Nurse Practitioner 11/14/24 documented as of this encounter
--- OUTSIDE RECORDS SUMMARY | 2025-01-26 09:56 | XMS_ITS | Encounter Summary ---
Author Organization [facility] Address [address] [place] [address] Care Team Providers Care Package Line Operator Name Role Phone Herb Tate ORGANIC PREPARATION TECHNICIAN-BED AND BREAKFAST OPERATOR Primary Care Provider [phone] Reason for Visit * Auth/Cert Specialty Diagnoses / Procedures Referred By Contac t Referred To Contact Diagnoses PFO (patent foramen ovale) (HCC) History of TIA (transient ischemic attack) PFO (patent foramen ovale) (HCC) [Q21.12] History of TIA (transient ischemic attack) [Z86.73] Procedures HI PERQ TRNSCATH BENJAMIN INTERATRIAL HI INTRACARD ECHO, THER/DX INTERVENT HI RIGHT HEART CATH CCL PATENT FORAMEN [place] CLOSURE CCL RIGHT HEART CATH Referral ID Status Reason Start Date Expiration Date Visits Re quested Visits Authorized [id number] 1 1 Encounter Details Date Type Department Care Team (Latest Contact Info) Description 01/26/2025 9:56 AM ELECTRIC FREIGHT CAR OPERATOR - 01/26/2025 11:59 PM ELECTRIC FREIGHT CAR OPERATOR Hospital Encounter [facility] - Cardiac Teletypesetter Operator [address] [place] [address] Sussy Kaur MD [address] [facility] [address] [place] [address] Discharge Disposition: Home or Self Care Social [...] and heating? Not hard at all 11/15/2024 [facility] [place] of Occupat ional Health - Occupational Stress [...] any time in the past 12 m [facility], were you homeless or living in a [facility] (including now)? No 11/15/2024 Comments No Sex and Gender Information Value Date Recorded Sex Assigned at Not on file Legal Sex Female 5:58 PM ELECTRIC FREIGHT CAR OPERATOR Gender Identity Not on file Sexual Orientation [...] daily 90 tablet 1 01/27/2025 10:20 AM ELECTRIC FREIGHT CAR OPERATOR 01/27/2025 Contour Plus Test test strip 10/09/2024 cyclobenzaprine (Flexeril) 10 MG tablet THREE TIMES A DAY as needed for muscle spasm 03/20/2024 FLUoxetine (PROzac) 20 MG capsule Take 1 (one) capsule by mouth Every morning and lunchtime Klayesta 651241 UNIT/GM powder APPLY 1 APPLICATION TOPICALLY TWICE [...] Angina 100 tablet 3 11/28/2024 nystatin (Mycostatin) 198514 UNIT/GM cream APPLY TOPICALLY TO THE AFFECTED [...] st Contact Info) Description 02/09/2025 11:00 AM ELECTRIC FREIGHT CAR OPERATOR Appointment [facility] CAT SCAN [address] [place] [phone] Eveline Roland APRN-BED AND BREAKFAST OPERATOR [address] [address] [address] [place] [address] 02/19/2025 11:00 AM ELECTRIC FREIGHT CAR OPERATOR Office Visit [facility] - Neurology [address] [facility] [place] [address] Miesha Adamson PA-C [address] [facility] [address] [place] [phone] 03/06/2025 9:20 AM ELECTRIC FREIGHT CAR OPERATOR Office Visit [facility] - Cardiology [address] [facility], [facility] [address] [place] [phone] Sussy Kaur MD [address] [facility] [address] [place] [address] Pending Results Name Type Priority Associated Diagnoses Date/Time ECHO MARY PROCEDURAL Echocardiography Cupid Routine PFO (patent foramen ovale) ([facility]) 01/26/2025 12:01 PM ELECTRIC FREIGHT CAR OPERATOR documented as of this encounter Visit Diagnoses Not on filedocumented in this encounter Care Teams Package Line Operator Relationship Specialty Start Date End Date Herb Tate, ORGANIC PREPARATION TECHNICIAN-BED AND BREAKFAST OPERATOR [address] [place] [phone] PCP - General Nurse Practitioner 11/14/24 documented as of this encounter
[2025-01-27] VITALS (10 sets, daily range): BP systolic 92–111; BP diastolic 59–68; PULSE 82–91; RESP 12–18; O2SAT 95–98
--- NOTE | ~2025-01-27 | US_ITS ---
EXAMINATION: US arterial duplex LE RT DATE: 01/27/2025 14:03 INDICATION: Right groin pain post cardiac catheterization TECHNIQUE: Multiple grayscale and Doppler ultrasound images of the right groin were obtained. COMPARISON: None FINDINGS: The right common femoral, superficial femoral and profunda femoral arteries appear normal with triphasic waveforms with brisk systolic upstrokes. No evident pseudoaneurysm. Right common femoral vein is patent and compressible with normal venous waveform no arterialization to suggest arterial venous fistula. 1.8 x 1.4 x 0.8 cm hypoechoic lesion without evident vascular flow on color Doppler located in the more superficial subcutaneous tissues at the right groin which could represent either a normal sized lymph node or small hematoma. IMPRESSION: 1. No evident pseudoaneurysm or AV fistula at the right groin. 2. 1.8 x 1.4 x 0.8 cm hypoechoic subcutaneous lesion at the right groin which could represent either a normal inguinal lymph node or small hematoma. Reviewed, dictated and finalized at location A. T FINISHING WORKER IMPRESSION: 1. No evident pseudoaneurysm or AV fistula at the right groin. 2. 1.8 x 1.4 x 0.8 cm hypoechoic subcutaneous lesion at the right groin which c ould represent either a normal inguinal lymph node or small hematoma.
--- OUTSIDE RECORDS SUMMARY | 2025-01-27 13:22 | XMS_ITS ---
Author Organization Unknown Address [place], [place] [phone] Phone Care Team Providers Care Engineer Automated Equipment Name Role Phone ORQUIDEA HERRERA Attending Unavailable [...] e/Time: 11/01/2024 22:06 [facility] ID: [id number] [address] [place], [place], [id number] LOINC: 28167-3 Test Value Unit Reference Range Code Code System Flag TROPONIN < 0.012 ng/mL L=0.000 H=0.033 00291-7 LOINC 4 PLEX RESPIRATORY COVID FLU RSV PCR - Collect Date/Time: 11/01/2024 18:13 [facility] ID: [id number] [address] [place], [place], [id number] LOINC: 87170-2 Test Value Unit Reference Range Code Code System Flag SARS CoV2 PCR NEGATIVE 39103-9 LOINC FLU A PCR NEGATIVE FLU B PCR NEGATIVE RSV PCR NEGATIVE SEND TO [facility]? NO URINALYSIS w/Microscopy/C&S if indicated - Collect Date/Time: 11/01/2024 17:48 [facility] ID: [id number] [place], [place], [id number] LOINC: 09112-0 Test Value Unit Reference Range Code Code System Flag UR SOURCE VOIDED 83071-9 LOINC COLOR YELLOW YELLOW 5778-6 LOINC CLARITY SL CLOUDY CLEAR 97990-2 LOINC SPEC GRAVITY <=1.005 1.000-1.030 5811-5 LOINC PH 6.0 5.0 - 6.5 5803-2 LOINC LEUK EST 1+ NEGATIVE 5799-2 LOINC A NITRATE NEGATIVE NEGATIVE PROTEIN NEGATIVE NEGATIVE 5804-0 LOINC GLUCOSE NEGATIVE NEGATIVE 19239-8 LOINC KETONES NEGATIVE NEGATIVE 78907-5 LOINC UROBILINOGEN 0.2 0.2 - 1.0 5818-0 LOINC BILIRUBIN NEGATIVE NEGATIVE 36271-5 LOINC BLOOD NEGATIVE NEGATIVE 76696-5 LOINC WBC 5-10 0 - 2 29410-6 LOINC A RBC 0-2 0 - 2 33902-9 LOINC SQ EPITHELIAL MODERATE RARE-FEW BACTERIA NONE SEEN NONE SEEN 83541-1 LOINC MUCUS NONE SEEN NONE SEEN 8247-9 LOINC YEAST NOT PRESENT NOT PRESENT 15661-8 LOINC TRICHOMONAS NOT PRESENT NOT PRESENT 22812-0 LOINC SPERMATOZOA NOT PRESENT NOT PRESENT 92439-6 LOINC CASTS NOT PRESENT 93373-1 LOINC CRYSTALS NOT PRESENT 83566-5 LOINC CULTURE? NO 8251-1 LOINC DIAGNOSIS N/A URINE DRUG SCREEN 12 PANEL R APID - Collect Date/Time: 11/01/2024 17:48 [facility] ID: [id number] [place], [place], [id number] LOINC: Test Value Unit Reference Range Code Code System Flag THC NEGATIVE PCP NEGATIVE COCAINE NEGATIVE 14829-4 LOINC METHAMPHETAMINES NEGATIVE OPIATES POSITIVE A AMPHETAMINES NEGATIVE 43220-1 LOINC BENZO POSITIVE 97097-1 LOINC A TCA NEGATIVE METHADONE NEGATIVE BARBITUATES NEGATIVE OXYCODONE NEGATIVE FENTANYL NEGATIVE CBC W/ DIFF - Collect Date/T ellen: 11/01/2024 17:33 [facility] ID: [id number] [address] [place], [place], [id number] LOINC: 03615-8 Test Value Unit Reference Range Code Code System Flag WBC 7.3 10^3uL L=4.0 H=10.5 RBC 4.09 10^6uL L=4.20 H=5.40 L HEMOGLOBIN 11.6 g/dL L=12.0 H=16.0 718-7 LOINC L HEMATOCRIT 36.2 VOL% L=37.0 H=47.0 4544-3 LOINC L MCV 88.5 fL L=81.0 H=99.0 MCH 28.4 pg L=27.0 H=32.0 MCHC 32.0 g/dL L=32.0 H=36.0 PLATELETS 291 10^3uL L=100 H=400 39874-7 LOINC RDW 13.4 % L=11.7 H=15.5 %GRAN 59.8 % L=40.0 H=70.0 28644-3 LOINC %LYMPH 30.1 % L=20.0 H=45.0 736-9 LOINC %MONO 6.7 % L=2.0 H=10.0 04798-7 LOINC %EOS 3.0 % L=0.0 H=6.0 713-8 LOINC %BASO 0.3 % L=0.0 H=3.0 706-2 LOINC #NEUT 4.4 10^3uL L=1.9 H=7.6 54977-7 LOINC #LYMPH 2.2 10^3uL L=0.9 H=4.9 40930-2 LOINC #MONO 0.5 10^3uL L=0.1 H=0.9 53376-0 LOINC #EOS 0.2 10^3uL L=0.0 H=0.6 712-0 LOINC #BASO 0.02 10^3uL L=0.00 H=0.10 28139-8 LOINC #IM GRANS 0.0 10^3uL L=0.0 H=7.0 97915-3 LOINC %IM GRANS 0.1 % L=0.0 H=5.0 34619-3 LOINC %NRB 0.0 L=0.0 H=0.2 01634-8 LOINC #NRB 0.000 L=0.000 H=0.012 83084-8 LOINC MANUAL DIFF NOT INDICATED RBC MORPH NOT INDICATED MAGNESIUM - Collect Date/Adrian e: 11/01/2024 17:33 [facility] ID: [id number] [address] [place] [address], [id number] LOINC: 03473-3 Test Value Unit Reference Range Code Code System Flag MAGNESIUM 1.8 mg/dL L=1.6 H=2.3 25368-1 LOINC CPK - Collect Date/Time: 17:33 [facility] ID: [id number] [address] [place] [address], [id number] LOINC: 2157-6 Test Value Unit Reference Range Code Code System Flag CPK 90 U/L L=30 H=170 2157-6 LOINC LACTIC ACID - Collect Date/T ellen: 11/01/2024 17:33 [facility] ID: [id number] [address] [place] [address], [id number] LOINC: 70399-3 Test Value Unit Reference Range Code Code System Flag LACTIC ACID 1.3 mmol/L L=0.7 H=2.6 47915-0 LOINC AMYLASE - Collect Date/Time: 11/01/2024 17:33 [facility] ID: [id number] [address] [place] [address], [id number] LOINC: 1798-8 Test Value Unit Reference Range Code Code System Flag AMYLASE 53 U/L L=30 H=110 1798-8 LOINC LIPASE - Collect Date/Time: 11/01/2024 17:33 [facility] ID: [id number] [address] [place] [address], [id number] LOINC: 3040-3 Test Value Unit Reference Range Code Code System Flag LIPASE 63 U/L L=23 H=300 3040-3 LOINC PROTIME - Collect Date/Time: 11/01/2024 17:33 [facility] ID: [id number] [address] [place] [address], [id number] LOINC: 17129-5 Test Value Unit Reference Range Code Code System Flag PT 9.7 Sec L=9.6 H=11.5 64154-6 LOINC INR 0.9 Sec L=0.9 H=1.1 32340-0 LOINC D DIMER - Collect Date/Time: 11/01/2024 17:33 [facility] ID: [id number] [address] [place] [address], [id number] LOINC: Test Value Unit Reference Range Code Code System Flag DDIMER 0.44 mg/L FEU L=0.00 H=0.50 PRO BNP - Collect Date/Time: 11/01/2024 17:33 [facility] ID: [id number] [address] [place] [address], [id number] LOINC: 69797-6 Test Value Unit Reference Range Code Code System Flag Pro BNP2 30 pg/mL L=0 H=900 25944-5 LOINC COMPREHENSIVE METABOLIC PANE L - Collect Date/Time: 11/01/2024 17:33 [facility] ID: [id number] [place], [id number] LOINC: 20311-6 Test Value Unit Reference Range Code Code [...] 2028-9 LOINC ANION GAP 10 L=10 H=20 21166-2 LOINC OSMOLALITY 289 mOs/kG L=280 H=296 60517-8 LOINC BUN/CREAT 18.3 3097-3 LOINC CALCIUM 9.1 mg/dL L=8.3 H=10.5 59068-0 LOINC AST 29 U/L L=15 H=46 1920-8 LOINC ALT 25 U/L L=9 H=72 1742-6 LOINC ALKALINE PHOS 109 U/L L=38 H=126 6768-6 LOINC TOTAL BILI 0.3 mg/dL L=0.2 H=1.3 1975-2 LOINC ALBUMIN 4.0 G/dL L=3.5 H=5.0 1751-7 LOINC TOTAL PROTEIN 6.6 g/L L=6.3 H=8.2 2885-2 LOINC A/G RATIO 1.5 36855-4 LOINC AGE 59 20108-5 LOINC eGFR NON-AFR 109 ml/min eGFR AFR AMER 132 ml/min TROPONIN LEVEL - Collect Peter e/Time: 11/01/2024 17:33 [facility] ID: [id number] [place], [place], [id number] LOINC: 07310-8 Test Value Unit Reference Range Code Code System Flag TROPONIN < 0.012 ng/mL L=0.000 H=0.033 07289-6 LOINC CHEST 1V - Completed: 2024 18:32 LOINC: \TM00\\12PI\\DRAo\\BM09\ \MRHo\ [id number] [place] [address] ---------NAME--------- NUMBER SEX AGE ADMIT DISC. XRAY# F/C TYPE EMILIANO LYNN STERLING [id number] F 59 11/01/24 43114 XB7 E.R. DATE OF : 1965 M/R# [id number] #: [id number] ED-31 [facility] LOCATION: TRANSCRIBED: 11/01/24 19:19 CHEST 1V 17475 COMPLETED:11/01/24 18:32 [facility] 92985 Chest Pain PHYSICIAN: ORQUIDEA Maya R A [...] congestion and/or viral pneumonia. Clinical correlation advised. L GOVERNMENT LEGISLATOR \ITLo\ \UNDo\ \UNDx\ \ITLx\ Reviewed and Electronically Signed by: Scout Mcclellan MD Signed Date: 11/01/24 19:19 CHEST 2V - Completed: 2024 21:39 LOINC: \TM00\\12PI\\DRAo\\BM09\ \MRHo\ [address] [address] ---------NAME--------- NUMBER SEX AGE ADMIT DISC. XRAY# F/C TYPE EMILIANO STERLING [id number] F 59 11/01/24 45235 XB7 E.R. DATE OF : 1965 M/R# [id number] #: [id number] ED-31 \[facility]\ LOCATION: TRANSCRIBED: 11/01/24 21:40 CHEST 2V 12842 COMPLETED:11/01/24 21:39 MRP [id number] Chest Pain PHYSICIAN: ORQUIDEA Maya R A D I O L O G Y R E P O R T CHEST 2V INDICATION: Chest Pain TECHNIQUE: Two views of the chest COMPARISON: CHEST 1V on DOS: 11/01/24 FINDINGS/IMPRESSION: LUNGS: No pleural effusion, consolidation, or pneumothorax. Peripheral interstitial edema. MEDIASTINUM: Unremarkable BONES: No acute osseous abnormality OTHER: None L GOVERNMENT LEGISLATOR \ITLo\ \UNDo\ \UNDx\ \ITLx\ Reviewed and Electronically Signed by: DCTFE WINN Signed Date: SIGNDATE US VENOUS LEFT LE - Complete d: 11/01/2024 19:13 LOINC: 29405-0 \TM00\\12PI\\DRAo\\BM09\ \MRHo\ [address] [address] ---------NAME--------- NUMBER SEX AGE ADMIT DISC. XRAY# F/C TYPE EMILIANO LYNN STERLING [id number] F 59 11/01/24 64148 XB7 E.R. DATE OF : 1965 M/R# [id number] #: [id number] ED-31 \[facility]\ LOCATION: TRANSCRIBED: 11/01/24 19:16 [place] [address] COMPLETED:11/01/24 19:13 MRP [id number] LEG SWELLING;Chest Pain PHYSICIAN: ORQUIDEA Maya R [...] THROMBOSIS IN THE LEFT LOWER EXTREMITY VEINS. L GOVERNMENT LEGISLATOR \ITLo\ \UNDo\ \UNDx\ \ITLx\ Reviewed and Electronically Signed by: Scout Mcclellan MD Signed Date: 11/01/24 19:16 Social History Type Status Start Date End Date Code Code Syst em Smoking History Current every day smoker [id number] SNOMED CT Sex Female Hospital Discharge Instructions Should you have any questions prior to discharge, please contact a member of your healthcare team. If you have left the hospital and have any questions, please contact your primary care physician. Reason For Referral No Data Found Allergies and Adverse Reactions Allergy Substance Reaction Severity Start Date Concern Status Co de Code System CYCLOBENZAPRINE Active 24493 RxNorm PENICILLIN Active Plan of Treatment No Data Found Encounters Encounter Diagnosis Start Date Code Code Sys tem Other chest pain 11/01/2024 SNOMED-CT Personal Care Team Section Performer Name Performer Role Active Date Inactive Rohan Vicente PCP - Primary care physician 2024-01-04 2024-01-04 Imaging Narrative Notes [facility] 11/01/2024 19:[address] [address] ---------NAME--------- NUMBER SEX AGE ADMIT DISC. XRAY# F/C TYPE EMILIANO STERLING [id number] F 59 11/01/24 39378 XB7 E.R. DATE OF : 1965 M/R# [id number] #: [id number] ED-31 LOCATION: TRANSCRIBED: 11/01/24 19:19 CHEST 1V 80151 COMPLETED:11/01/24 18:32 MRP [id number] Chest Pain PHYSICIAN: ORQUIDEA Maya RADIOLOGY REPORT CHEST RADIOGRAPH Indication: Chest Pain Technique: Single frontal view of the chest was obtained COMPARISON: None FINDINGS: Lines and Tubes: None Lungs: Congestion Pleura: No effusion. No pneumothorax. Cardiomediastinal contours: Unremarkable Bones: Unremarkable IMPRESSION: Increased interstital prominence. This may represent pulmonary vascular congestion and/or viral pneumonia. Clinical correlation advised. L GOVERNMENT LEGISLATOR Reviewed and Electronically Signed by: Scout Mcclellan MD Signed Date: 11/01/24 19:19 [facility] 11/01/2024 21:[address] [address] ---------NAME--------- NUMBER SEX AGE ADMIT DISC. XRAY# F/C TYPE EMILIANO STERLING [id number] F 59 11/01/24 21699 XB7 E.R. DATE OF : 1965 M/R# [id number] #: [id number] ED-31 LOCATION: TRANSCRIBED: 11/01/24 21:40 CHEST 2V 07422 COMPLETED:11/01/24 21:39 MRP [id number] Chest Pain PHYSICIAN: ORQUIDEA G RADIOLOGY REPORT CHEST 2V INDICATION: Chest Pain TECHNIQUE: Two views of the chest COMPARISON: CHEST 1V on DOS: 11/01/24 FINDINGS/IMPRESSION: LUNGS: No pleural effusion, consolidation, or pneumothorax. Peripheral interstitial edema. MEDIASTINUM: Unremarkable BONES: No acute osseous abnormality OTHER: None L GOVERNMENT LEGISLATOR Reviewed and Electronically Signed by: KHRIS WINN Signed Date: SIGNDATE [facility] 11/01/2024 19:19 [facility] [address] [place] [address] ---------NAME--------- NUMBER SEX AGE ADMIT DISC. XRAY# F/C TYPE EMILIANO STERLING [id number] F 59 11/01/24 47048 XB7 E.R. DATE OF : 1965 M/R# [id number] #: [id number] ED-31 LOCATION: TRANSCRIBED: 11/01/24 19:16 [place] [address] COMPLETED:11/01/24 19:13 [facility] [address] LEG SWELLING;Chest Pain PHYSICIAN: ORQUIDEA G RADIOLOGY [...] THROMBOSIS IN THE LEFT LOWER EXTREMITY VEINS. L GOVERNMENT LEGISLATOR Reviewed and Electronically Signed by: Scout Mcclellan MD Signed Date: 11/01/24 19:16
--- OUTSIDE RECORDS SUMMARY | 2025-01-27 13:22 | XMS_ITS | Clinical Summary ---
Author Organization [facility] Address [address] [facility] [place] [address] Phone Care Team Providers Care Community Relations Representative Name Role Phone Rhianna Shepard EVA Primary [...] Insurance MEDICAID [employer] Care Teams Community Relations Representative Relationship Specialty Start Date End Date Rhianna Shepard PAC [address] [place] [address] PCP - General Advanced Practice Nurse 07/02/23
--- OUTSIDE RECORDS SUMMARY | 2025-01-27 13:22 | XMS_ITS | Clinical Summary ---
Author Organization [facility] Address [address] [place] [address] Care Team Providers Care Reduction Furnace Operator Helper Name Role Phone Rhianna Shepard Primary Care Provider [phone] Allergies Active Allergy Reactions Criticality Noted Date [...] Most Recently Relevant to Health Maintenance Insurance [address] [address] Care Teams Reduction Furnace Operator Helper Relationship Specialty Start Date End Date Rhianna Shepard PA [address] [place] [address] PCP - General PHYSICIAN HOTEL FRONT DESK CLERK 11/18/19
--- OUTSIDE RECORDS SUMMARY | 2025-01-27 13:22 | XMS_ITS | Encounter Summary ---
Author Organization [facility] Address [facility] [place] [address] Care Team Providers Care Hydraulic Engineer Name Role Phone Rhianna Shepard Primary Care Provider [phone] Encounter Details Date Type Department Care Team (Late st Contact Info) Description 07/13/2018 Abstract [facility] CONVERSION [address] [place] [address] , Generic Conversion, Social History Tobacco Use [...] on filedocumented in this encounter Care Teams Hydraulic Engineer Relationship Specialty Start Date End Date Rhianna Shepard PA [address] [place] [address] PCP - General PHYSICIAN SUPERVISOR HOT DIP PLATING 11/18/19 documented as of this encounter
--- OUTSIDE RECORDS SUMMARY | 2025-01-27 13:22 | XMS_ITS | Encounter Summary ---
Author Organization [facility] Address [address] [facility] [place] [address] Care Team Providers Care Medical Technologist Chemistry Name Role Phone Herb Tate DIRECT MARKETING ANALYST-INTERNATIONAL RELATIONS PROFESSOR Primary Care Provider [phone] Encounter Details Date Type Department Care Team (Latest Contact Info) Description 01/26/2025 Travel Social History Tobacco Use Types Packs/Day Years [...] and heating? Not hard at all 11/15/2024 [place] [facility] - Occupational Stress [...] were you homeless or living in a fdc (including now)? No 11/15/2024 Comments No Sex and Gender Information Value Date Recorded Sex Assigned at Not on file Legal Sex Female 5:58 PM CATIE Gender Identity Not on file Sexual Orientation Not on file documented as of this encounter Functional Status * Is person deaf or have serious hearing difficulty? Answer Date of Assessment Author No 12/19/2024 10:14 AM Sarah Stewart RN * Is person blind or have serious difficulty seeing? Answer Date of Assessment Author No 12/19/2024 10:14 AM Sarah Stewart, GONZALO * Does person have serious difficulty walking/climbing stairs? Answer Date of Assessment Author No 12/19/2024 10:14 AM Sarah Stewart, G[place]O * Does person have difficulty dressing/bathing? Answer Date of Assessment Author No 12/19/2024 10:14 AM Sarah Stewart, G[place]O * Does person have difficulty doing errands alone? Answer Date of Assessment Author No 12/19/2024 10:14 AM Sarah Stewart, RN documented as of this encounter Mental Status * Does person have difficulty concentrating/remembering/making decisions? Answer Entry Date Author No 12/19/2024 10:14 AM Sarah Stewart RN documented in this encounter Plan of Treatment Upcoming Encounters Date Type Department Care Team (Late st Contact Info) Description 02/09/2025 11:00 AM FREIGHT DELIVERY DRIVER Appointment [facility] [address] [place] [address] Eveline Roland APRN-INTERNATIONAL RELATIONS PROFESSOR [id number] [place] [address] 02/19/2025 11:00 AM FREIGHT DELIVERY DRIVER Office Visit [facility] - Neurology [address] [facility] [place] [address] Miesha Adamson PA-C [address] [facility] [address] [place] [phone] 03/06/2025 9:20 AM FREIGHT DELIVERY DRIVER Office Visit [facility] - Cardiology [address] [facility] [address] [place] [phone] Sussy Kaur MD [id number] [place] [address] documented as of this encounter Visit Diagnoses Not on filedocumented in this encounter Care Teams Medical Technologist Chemistry Relationship Specialty Start Date End Date Herb Tate APRN-INTERNATIONAL RELATIONS PROFESSOR [address] [place] [address] PCP - General Nurse Practitioner 11/14/24 documented as of this encounter
--- OUTSIDE RECORDS SUMMARY | 2025-01-27 13:22 | XMS_ITS | Clinical Summary ---
Author Organization [facility] [employer] Address [address] [place] [address] Care Team Providers Care Feltmaker And Weigher Name Role Phone Herb Tate MICROFILMER-HOME STAGING SPECIALIST Primary Care Provider [phone] Source Comments [facility] [employer],non-audrain medical center Affiliates and Associated Physician Practices is amultiple site organization consisting of ambulatory clinics and hospital sitesin [place], [place] and [place]. This disclosure is being madepursuant to the Care Everywhere program and may not contain all information available regarding this patient. Last updated 17.[facility] [employer] Allergies Active Allergy Reactions Criticality Noted Date [...] tablet by mouth once daily Active albuterol (Proventil;Vent nancy) (5 MG/ML) 0.5% nebulizer solution Inhale 0.5 mL by mouth Active albuterol HFA (Proventil; Ventolin; Proair) 108 (90 Base) MCG/ACT inhaler Inhale 2 (two) puffs by mouth every 6 hours as needed Active aspirin EC (Ecotrin) 81 MG tabletIndicatio ns:Cerebrovascu lar accident (CVA), unspecified mechanism (HCC) Every Morning 5 Active Blood Glucose Monitoring Suppl (Contour Plus Blue) w/Device KIT 5 Active Cholecalciferol 125 MCG (5000 UT) Take 125 mcg by mouth once daily Active cyclobenzaprine (Flexeril) 10 MG tablet THREE TIMES A DAY as needed for muscle spasm 5 Active Contour Plus Test test strip 5 Active lidocaine (Lidoderm) 5 % patch DAILY as needed for pain 5 Active Klayesta 951752 UNIT/GM powder APPLY 1 APPLICATION TOPICALLY TWICE DAILY FOR 7 DAYS Active nystatin (Mycostatin) 110000 UNIT/GM cream APPLY TOPICALLY TO THE AFFECTED AREA TWICE DAILY FOR 7 DAYS 5 Active tiotropium (Spiriva Respimat) 2.5 MCG/ACT inhaler Inhale 2 (two) puffs by mouth once daily Active nitroGLYCERIN (Nitrostat) 0.4 MG tabletIndicatio ns:Cerebrovascu lar accident (CVA), unspecified mechanism (HCC) Dissolve 1 (one) tablet under the tongue every 5 minutes as needed for Angina 100 tablet 3 5 Active atorvastatin (Lipitor) 20 MG tablet 5 Active OLANZapine (ZyPREXA) 7.5 MG tablet 5 Active clopidogrel (plaVIX) 75 MG tablet Take 1 (one) tablet by mouth once daily 90 tablet 1 01/27/2025 10:20 AM ELEMENTARY SUBSTITUTE TEACHER 5 Active celecoxib (CeleBREX) 100 MG capsule 5 025 Discontin ued(List Clean-Up) ketorolac (Toradol) 10 MG tablet TAKE 1 TABLET BY MOUTH EVERY 8 HOURS NEEDED AFTER A MEAL FOR PAIN 025 Discontin ued(List Clean-Up) levocetirizine (Xyzal) 5 MG tablet Take 1 (one) tablet by mouth 025 Discontin ued(List Clean-Up) ondansetron (Zofran) 4 MG tablet Take 1 (one) tablet by mouth every 8 hours as needed 025 Discontin ued(List Clean-Up) Active Problems Problem Noted Date Diagnosed Date History of TIA (transient ischemic attack) 12/31 PFO (patent foramen ovale) 11/28/2024 Dyspnea on exertion 11/28/2024 Right sided weakness 11/15/2024 Dysarthria 11/15/2024 Acute respiratory insufficiency 11/15/2024 Electrolyte imbalance 11/15/2024 Numbness and tingling of both legs 11/15/2024 Weakness 11/14/2024 Cerebrovascular accident (CVA), unspecified [facility] 11/14/2024 Encounters Date Type Department Care Team Description 01/26/2025 9:56 AM ELEMENTARY SUBSTITUTE TEACHER - 01/26/2025 11:59 PM ELEMENTARY SUBSTITUTE TEACHER Hospital Encounter [facility] - Cardiac Cardiac Technologist [address] [place] [address] Sussy Kaur MD Discharge Disposition: Home or Self Care 01/26/2025 9:40 AM ELEMENTARY SUBSTITUTE TEACHER - 01/26/2025 11:34 AM ELEMENTARY SUBSTITUTE TEACHER Surgery [facility] - Cardiac Cardiac Technologist [address] [place] [address] Sussy Kaur MD Patent Foramen Ovale (PFO) Closure 01/26/2025 7:28 AM ELEMENTARY SUBSTITUTE TEACHER - 01/27/2025 10:21 AM [facility] Hospital Encounter [facility] 8N ACUTE [address] [place] [address] Sussy Kaur MD Cardiac Catheterization Discharge Disposition: Home or Self Care 01/26/2025 Travel 01/23/2025 Telephone [facility] - Cardiology [address] [facility], [facility] [address] [place] [address] Sussy Kaur MD Question 01/05/2025 Orders Only [facility] - Cardiac Cardiac Technologist [address] [place] [phone] Sussy Kaur MD Stable angina ; ALLEN (dyspnea on exertion); Mixed hyperlipidemia; History of tobacco use; Type 2 diabetes mellitus without complication, without long-term current use of insulin (HCC) 12/31/2024 4:40 PM ELEMENTARY SUBSTITUTE TEACHER Video [facility]iology [address] [place] [phone] Sussy Kaur MD PFO (patent foramen ovale) (HCC) ; Cerebrovascular accident (CVA), unspecified mechanism (HCC) 12/31/2024 Orders Only [facility] - Cardiac Cardiac Technologist [address] [place] [phone] Sussy Kaur MD PFO (patent foramen ovale) (HCC) ; History of TIA (transient ischemic attack) 12/19/2024 6:35 AM ELEMENTARY SUBSTITUTE TEACHER - 12/19/2024 11:59 PM ELEMENTARY SUBSTITUTE TEACHER Hospital Encounter [facility] - Cardiac Cardiac Technologist [address] [place] [phone] Sussy Kaur MD Discharge Disposition: Home or Self Care 12/19/2024 Travel 12/08/2024 Transcribe Orders [facility] - Centralized Scheduling [address] [place] [address] Herb Tate, MICROFILMER-HOME STAGING SPECIALIST Transient neurological symptoms 11/28/2024 10:00 AM CDT Office [facility] [address] [address] Sussy Kaur MD Cerebrovascular accident (CVA), unspecified mechanism (HCC) (Primary Dx) 11/28/2024 Travel 11/25/2024 Travel 11/14/2024 7:37 PM CDT - 11/16/2024 5:57 PM CDT Hospital Encounter [facility] 3N ICU [address] [place] [phone] Dustin Singh MD Edgell, Randall C, MD [...] and heating? Not hard at all 11/15/2024 [facility] [place] [facility] - Occupational Stress [...] any time in the past 12 m [facility], were you homeless or living in a fpc (including now)? No 11/15/2024 Comments No Sex and Gender Information Value Date Recorded Sex Assigned at Not on file Legal Sex Female 5:58 PM ELEMENTARY SUBSTITUTE TEACHER Gender Identity Not on file Sexual Orientation Not on file Last Filed Vital Signs Vital Sign Reading Time Taken Comments Blood Pressure 124/78 01/27/2025 7:35 AM ELEMENTARY SUBSTITUTE TEACHER Pulse 101 01/27/2025 7:35 AM ELEMENTARY SUBSTITUTE TEACHER Temperature 36.7 C (98.1 F) 01/27/2025 7:35 AM ELEMENTARY SUBSTITUTE TEACHER Respiratory Rate 17 01/27/2025 4:51 AM ELEMENTARY SUBSTITUTE TEACHER Oxygen Saturation 96% 01/27/2025 8:00 AM ELEMENTARY SUBSTITUTE TEACHER Inhaled Oxygen Concentration 21% 01/26/2025 3 :00 PM ELEMENTARY SUBSTITUTE TEACHER Weight 127.5 kg (281 lb) 01/26/2025 7:55 AM ELEMENTARY SUBSTITUTE TEACHER Height 167.6 cm (5' 6) 01/26/2025 7:55 AM ELEMENTARY SUBSTITUTE TEACHER Body Mass Index 45.35 01/26/2025 7:55 AM ELEMENTARY SUBSTITUTE TEACHER Plan of Treatment Upcoming Encounters Date Type Department Care Team (Late st Contact Info) Description 02/09/2025 11:00 AM ELEMENTARY SUBSTITUTE TEACHER Appointment [facility] CAT SCAN [address] [place] [phone] Eveline Roland, MIQUEL-HOME STAGING SPECIALIST [address] [facility] [address] [place] [address] 02/19/2025 11:00 AM ELEMENTARY SUBSTITUTE TEACHER Office Visit [facility] - Neurology [address] [facility] [place] [phone] Miesha Adamson PA-C [address] [facility] [address] [place] [phone] 03/06/2025 9:20 AM ELEMENTARY SUBSTITUTE TEACHER Office Visit [facility] - Cardiology [address] [facility], [facility] [address] [place] [address] Sussy Kaur MD [address] [place] [address] Health Maintenance Due Date Last Done Comments [...] 2024 4, 02/17/2023, 11/01/2018 SCREENING FOR DIABETES 01/28/2028 5, 01/27/2025, 01/26/2025, Additional history exists DEPRESSION SCREENING Completed 11/28/2024 [...] on patient's age to complete this topic Medical Devices Implanted Type Area Direct Mail Coordinator Device Identifier Shelf Expiration Date Model / Serial / Lot Bedford Cardioform 48mm Implanted:Qty: 1 on 01/26/2025 by Sussy Kaur MD at [facility] [employer] 05/22/2026 [id number] / [id number] / [id number] Oclr Cv 80cm 37mm 10-14fr Spt Cath Bedford - [id number] Implanted:Qty: 1 on 01/26/2025 by Sussy Kaur MD at [facility] [employer] [id number] 10/31/2026 [id number] / [id number] / [id number] Procedures Procedure Name Priority Date/Time Associated Diagnosis Comments MAGNESIUM BLOOD Routine 01/27/2025 8:34 AM ELEMENTARY SUBSTITUTE TEACHER PFO (patent foramen ovale) (HCC) History of TIA (transient ischemic attack) BASIC METABOLIC PANEL (CALCIUM TOTAL) AM Draw 01/27/2025 8:34 AM ELEMENTARY SUBSTITUTE TEACHER PFO (patent foramen ovale) (HCC) History of TIA (transient ischemic attack) GLUCOSE - POINT OF CARE Routine 01/27/2025 7:32 AM ELEMENTARY SUBSTITUTE TEACHER CBC W/O DIFFERENTIAL AM Draw 01/27/2025 2:26 AM ELEMENTARY SUBSTITUTE TEACHER PFO (patent foramen ovale) (HCC) History of TIA (transient ischemic attack) GLUCOSE - POINT OF CARE Routine 01/26/2025 9:32 PM ELEMENTARY SUBSTITUTE TEACHER GLUCOSE - POINT OF CARE Routine 01/26/2025 5:20 PM ELEMENTARY SUBSTITUTE TEACHER ECHO LIMITED W CONTRAST W BUBBLE STUDY PENDING DISCHARGE 01/26/2025 4:34 PM ELEMENTARY SUBSTITUTE TEACHER PFO (patent foramen ovale) (HCC) History of TIA (transient ischemic attack) CCL RIGHT HEART CATH Routine 01/26/2025 11:57 AM ELEMENTARY SUBSTITUTE TEACHER PFO (patent foramen ovale) (HCC) History of TIA (transient ischemic attack) Procedure Note - Rayshawn Williamson MD - 01/26/2025 11:57 AM CSTThis note is in progress. Successful ICE guided closure of PFO with 48 mm Bedford ASD closuredevice. There is no pulmonary hypertension.(Mean [...] 16 Fr Shth Intro 33Cm 6.1Mm 16Fr Bedford Dryseal sheath was inserted. PFO/ASD Patient Prep [...] perclose devices used for closure of 16 rwandan access site in the right common femoral vein. Vascade used for closure of 11 rwandan entry point in the right common femoral vein. Right Heart Cath Cardiac output measurements were performed using the Jahaira method. The catheter was inserted into the right femoral vein. There is no pulmonary hypertension. Recommendations - Recommend dual anti platelet therapy for at least 6 months. - Antibiotics prophylaxis before dental procedures CCL PATENT FORAMEN OVALE CLOSURE Routine 01/26/2025 11:57 AM ELEMENTARY SUBSTITUTE TEACHER PFO (patent foramen ovale) (HCC) History of TIA (transient ischemic attack) Procedure Note - Rayshawn Williamson MD - 01/26/2025 11:57 AM CSTThis note is in progress. Successful ICE guided closure of PFO with 48 mm Bedford ASD closuredevice. There is no pulmonary hypertension.(Mean [...] 16 Fr Shth Intro 33Cm 6.1Mm 16Fr Bedford Dryseal sheath was inserted. PFO/ASD Patient Prep [...] perclose devices used for closure of 16 rwandan access site in the right common femoral vein. Vascade used for closure of 11 rwandan entry point in the right common femoral vein. Right Heart Cath Cardiac output measurements were performed using the Jahaira method. The catheter was inserted into the right femoral vein. There is no pulmonary hypertension. Recommendations - Recommend dual anti platelet therapy for at least 6 months. - Antibiotics prophylaxis before dental procedures BLOOD TYPE VERIFICATION Routine 01/26/2025 9:33 AM ELEMENTARY SUBSTITUTE TEACHER GLUCOSE - POINT OF CARE Routine 01/26/2025 8:18 AM ELEMENTARY SUBSTITUTE TEACHER TYPE + SCREEN PANEL Routine 01/26/2025 8 :06 AM ELEMENTARY SUBSTITUTE TEACHER CBC W/O DIFFERENTIAL JESSICA 01/26/2025 8:06 AM ELEMENTARY SUBSTITUTE TEACHER PFO (patent foramen ovale) (HCC) History of TIA (transient ischemic attack) BASIC METABOLIC PANEL (CALCIUM TOTAL) JESSICA 01/26/2025 8:06 AM ELEMENTARY SUBSTITUTE TEACHER PFO (patent foramen ovale) (HCC) History of TIA (transient ischemic attack) ECHO MARY COMPLETE Routine 12/19/2024 10:06 AM ELEMENTARY SUBSTITUTE TEACHER Cerebrovascular accident (CVA), unspecified mechanism (HCC) GLUCOSE - POINT OF CARE Routine 12/19/2024 8:01 AM ELEMENTARY SUBSTITUTE TEACHER CBC W/O DIFFERENTIAL Routine 12/19/2024 7:55 AM ELEMENTARY SUBSTITUTE TEACHER Cerebrovascular accident (CVA), unspecified mechanism (HCC) BASIC METABOLIC PANEL (CALCIUM TOTAL) Routine 12/19/2024 7:55 AM ELEMENTARY SUBSTITUTE TEACHER Cerebrovascular accident (CVA), unspecified mechanism (HCC) GLUCOSE [...] from Last 3 Months Results * (ABNORMAL) BASIC METABOLIC PANEL (CALCIUM TOTAL) (01/27/2025 8:34 AM ELEMENTARY SUBSTITUTE TEACHER) Only the most recent of5 resultswithin the time period is included. BUN 9 7 - 26 mg/dL 01/27/2025 9:15 AM [facility] Creatinine 0.52(L) 0.56 - 0.96 mg/dL 01/27/2025 9:15 AM [facility] Sodium 137 136 - 145 mmol/L 01/27/2025 9:15 AM [facility] Potassium 4.1 3.5 - 4.5 mmol/L 01/27/2025 9:15 AM [facility] Chloride 106 98 - 107 mmol/L 01/27/2025 9:15 AM [facility] CO2 23 22 - 29 mmol/L 01/27/2025 9:15 AM [facility] Glucose 200(H) 70 - 99 mg/dL 01/27/2025 9:15 AM [facility] Calcium 8.9 8.4 - 10.2 mg/dL 01/27/2025 9:15 AM [facility] Anion Gap 8 6 - 16 01/27/2025 9:15 AM [facility] BUN/Creatinine Ratio 17 7 - 23 01/27/2025 9:15 AM [facility] Osmolality Calculated 288 275 - 295 mOsm/kg 01/27/2025 9:15 AM [facility] eGFR by CKD-EPI >90 >=90 mL/min/1.7 3 m2 01/27/2025 9:15 AM [facility] Comment:Estimated Glomerular Filtration Rate (eGFR) calculated using the CKD-EPI Creatinine Equation (2020), per the National Kidney Foundation and [place] Society of Nephrology recommendations. Blood BLOOD SPECIMEN / Unknown Lab Venipuncture / Unknown 01/27/2025 8:34 AM ELEMENTARY SUBSTITUTE TEACHER 01/27/2025 8:46 AM ELEMENTARY SUBSTITUTE TEACHER Ebony [facility] LAB - CHEMISTRY ORDERA BLES Final Result Performing Organization Address City/[facility]/ZIP Co de Phone Number [address] [address], [facility] [phone] * MAGNESIUM BLOOD (01/27/2025 8:34 AM ELEMENTARY SUBSTITUTE TEACHER) Magnesium 1.7 1.6 - 2.6 mg/dL 01/27/2025 9:15 AM [facility] Blood BLOOD SPECIMEN / Unknown Lab Venipuncture / Unknown 01/27/2025 8:34 AM ELEMENTARY SUBSTITUTE TEACHER 01/27/2025 8:46 AM ELEMENTARY SUBSTITUTE TEACHER [employer] MICROFILMER-HOME STAGING SPECIALIST LAB - CHEMISTRY ORDERA BLES Final Result [address] [address], [facility] [phone] * (ABNORMAL) GLUCOSE - POINT OF CARE (01/27/2025 7:32 AM ELEMENTARY SUBSTITUTE TEACHER) Only the most recent of11 resultswithin the time period is included. [facility] Glucose WB/POC 162(H) 70 - 99 mg/dL 01/27/2025 7:54 AM [facility] Specimen Type Arterial/C apillary 01/27/2025 7:54 AM [facility] Blood BLOOD SPECIMEN / Unknown 01/27/2025 7:32 AM ELEMENTARY SUBSTITUTE TEACHER 01/27/2025 7:54 AM ELEMENTARY SUBSTITUTE TEACHER Sussy Kaur MD LAB - POINT OF CARE ORDERAB LES Final Result [facility] [address] [place] [address], [facility] [phone] * (ABNORMAL) CBC W/O DIFFERENTIAL (01/27/2025 2:26 AM ELEMENTARY SUBSTITUTE TEACHER) Only the most recent of5 resultswithin the time period is included. [facility] WBC 8.5 4.0 - 10.7 x10E9/L 01/27/2025 3:03 AM [facility] RBC Count 4.09 3.90 - 5.20 x10E12/L 01/27/2025 3:03 AM [facility] Hemoglobin 11.3(L) 11.9 - 15.8 g/dL 01/27/2025 3:03 AM [facility] Hematocrit 36.1 34.8 - 46.1 % 01/27/2025 3:03 AM [facility] MCV 88.3 80.0 - 98.0 fL 01/27/2025 3:03 AM [facility] MCH 27.6 26.7 - 33.6 pg 01/27/2025 3:03 AM [facility] MCHC 31.3(L) 31.7 - 36.3 g/dL 01/27/2025 3:03 AM [facility] RDW-CV 13.8 11.3 - 14.8 % 01/27/2025 3:03 AM ELEMENTARY SUBSTITUTE TEACHER [facility] Platelet Count 176 150 - 420 x10E9/L 01/27/2025 3:03 AM [facility] MPV 11.4 7.8 - 11.4 fL 01/27/2025 3:03 AM [facility] Blood BLOOD SPECIMEN / Unknown Lab Venipuncture / Unknown 01/27/2025 2:26 AM ELEMENTARY SUBSTITUTE TEACHER 01/27/2025 2:56 AM ELEMENTARY SUBSTITUTE TEACHER Ebony Gill MICROFILMER-HOME STAGING SPECIALIST LAB - HEMATOLOGY ORDER [place] Final Result [facility] [address] [place] [address], [facility] [phone] * ECHO LIMITED W CONTRAST W BUBBLE STUDY (01/26/2025 4:34 PM ELEMENTARY SUBSTITUTE TEACHER) Only the most recent of2 resultswithin the time period is included. Myocardial strain charge 2 unitless [facility] CV [...] Region Laterality Modality Ultrasound 01/26/2025 3:46 PM ELEMENTARY SUBSTITUTE TEACHER Narrative 01/26/2025 8:32 PM ELEMENTARY SUBSTITUTE TEACHER Summary * Extremely TDS despite great effort. [...] Exam Date: 01/26/2025 3:46 PM Exam Room: 81 Patient Status: MDB Study Site: [facility] Primary Location: [facility] EStudy [...] Provider: Ebony Gill Attending Physician: Ebony Gill Engineering Technology Instructor: Derik iKser Measurements Ventricles Name Value Normal LV Dimensions [...] Exam Date: 01/26/2025 3:46 PM Exam Room: [employer] Patient Status: MDB Study Site: [facility] Primary Location: [facility] EStud Info Technical Quality: Technically Difficult Exam Type: ECHO LIMITED W CONTRAST W BUBBLE STUDY Indications Q21.12 - PFO (patent foramen ovale) ([facility]) Z86.73 - History of TIA (transient ischemic [...] interference, poor acoustic windows Staff Referring Physician: Ebnoy Gill Ordering Provider: Ebony Gill Attending Physician: Ebony Gill Engineering Technology Instructor: Derik Kiser Measurements Ventricles Name Value Normal [...] Palma Larson MD on 01/26/2025 08:32 PM [employer] MICROFILMER-[employer] ECHO CUPID Final Result * BLOOD TYPE VERIFICATION (01/26/2025 9:33 AM ELEMENTARY SUBSTITUTE TEACHER) ABO Rh A POS 01/26/2025 10:21 AM ELEMENTARY SUBSTITUTE TEACHER [facility] BLOOD BANK LAB Blood Bank BLOOD SPECIMEN / Unknown Venipuncture / Unknown 01/26/2025 9:33 AM ELEMENTARY SUBSTITUTE TEACHER 01/26/2025 9:35 AM ELEMENTARY SUBSTITUTE TEACHER [employer] LAB - BLOOD BANK ORDER [place] Final Result Performing Organization Address City/[facility]/ZIP Co de Phone Number [facility] BLOOD BANK LAB [address] [place] [phone], [place] [phone] * TYPE + SCREEN PANEL (01/26/2025 8:06 AM ELEMENTARY SUBSTITUTE TEACHER) Antibody Screen NEG 8:59 AM ELEMENTARY SUBSTITUTE TEACHER [facility] BLOOD BANK LAB ABO Rh A POS 01/26/2025 8:59 AM ELEMENTARY SUBSTITUTE TEACHER [facility] BLOOD BANK LAB Blood Bank BLOOD SPECIMEN / Unknown Venipuncture / Unknown 01/26/2025 8:06 AM ELEMENTARY SUBSTITUTE TEACHER 01/26/2025 8:16 AM ELEMENTARY SUBSTITUTE TEACHER [employer] LAB - BLOOD BANK ORDER [place] Final Result [facility] BLOOD BANK LAB [address] [place] [address], [place] [phone] * ECHO MARY COMPLETE (12/19/2024 10:06 AM ELEMENTARY SUBSTITUTE TEACHER) TR belinda torie 244 cm/s [facility] Anatomical Region Laterality Modality Ultrasound 12/19/2024 9:09 AM ELEMENTARY SUBSTITUTE TEACHER Narrative 12/25/2024 11:33 AM ELEMENTARY SUBSTITUTE TEACHER Summary * Left ventricular systolic function is [...] 9:09 AM Patient Status: O/P Study Site: [facility] Primary Location: [facility] EStudy Info Exam Type: ECHO MARY COMPLETE Indications I63.9 - Cerebrovascular accident (CVA), unspecified mechanism (HCC) * A complete transesophageal echo was performed using 2D, color Doppler, and spectral Doppler. Staff Referring Physician: Sussy Kaur Ordering Provider: Sussy Kaur Attending Physician: Sussy Kaur Fellow: Breonna Perez Engineering Technology Instructor: Fior Franz Performing Physician: Edward Mcguire Complications [...] in satisfactory condition. Probe passed by the truck despatcher without difficulty. Left Ventricle The left ventricle [...] 9:09 AM Patient Status: O/P Study Site: [facility] Primary Location: [facility] EStudy Info Exam Type: ECHO MARY COMPLETE Indications I63.9 - Cerebrovascular accident (CVA), unspecified mechanism (HCC) * A complete transesophageal echo was performed using 2D, color Doppler,and spectral Doppler. Staff Referring Physician: Sussy Kaur Ordering Provider: Sussy Kaur Attending Physician: Sussy Kaur Fellow: Breonna Perez Engineering Technology Instructor: Fior Franz Performing Physician: Edward Mcguire Complications [...] MD ECHO CUPID Final Resul t * HEMOGLOBIN A1C (11/16/2024 4:45 AM CDT) Only the most recent of2 resultswithin the time period is included. Hemoglobin A1c 5.6 <=5.6 % 11/16/2024 8:51 AM CDT [facility] Estimated Average Glucose 114 mg/dL 11/16/2024 8:51 AM CDT [facility] Comment: HbA1c Interpretation: Normal : < 5.7% Pre-diabetes: 5.7-6.4% Diabetes: Equal to or greater than 6.5% Test results diagnostic of diabetes should be repeated for confirmation. Treatment target values recommended by ADA and other clinical organizations should be used to evaluate metabolic control in patients. Reference: [place] Diabetes Association, Standards of Care in Diabetes -2020 In patients 70 years and older consider HbA1c target range of 7.0-7.5% (Reference: Ko Escoto, et al. JAMDA. 2012) The Sebia assay for the measurement of HbA1c is a National Glycohemoglobin Standardization Program (NGSP) certified method. Blood BLOOD SPECIMEN / Unknown Venipuncture / Unknown 11/16/2024 4:45 AM CDT 11/16/2024 5:20 AM CDT Jose SANTIAGO LAB - CHEMISTRY ORDERABLE S Final Result [facility] [address] [place] [address], [facility] [phone] * CT HEAD NON CONTRAST (11/15/2024 5:08 PM CDT) Anatomical Region Laterality Modality Head Computed Tomogra phy 11/15/2024 7:27 PM CDT Impressions 11/15/2024 8:38 PM CDT IMPRESSION: 1.No acute intracranial hemorrhage, midline shift, or significant mass effect. Report was dictated by Jamison Camp MD, ([facility] resident) 11/15/2024 7:27 PM > Dictated by Jamison Camp MD 11/15/2024 7:27 PM > Dictated by Cheese Maker IAna Laura MD have personally reviewed and interpreted this examination/study. > Interpreting Provider: Ana Laura Mahan MD on 11/15/2024 8:38 PM Narrative 11/15/2024 8:38 PM CDT PROCEDURE: CT HEAD WO CONTRAST, DATE/TIME OF EXAM: 11/15/2024 5:09 PM, LOCATION [facility] INDICATION: I63.9: Cerebrovascular accident (CVA), unspecified mechanism [...] DATE/TIME OF EXAM: 11/15/2024 5:09 PM, LOCATION [facility] INDICATION: I63.9: Cerebrovascular accident (CVA), unspecified mechanism [...] MD 11/15/2024 7:27 PM > Dictated by Cheese Maker I, Ana Laura Mahan MD have personally reviewed and interpretedthis examination/study. > Interpreting Provider: Ana Laura Mahan MD on 11/15/2024 8:38 PM us Dustin Singh MD CT ORDERABLES Final Result * MRI Brain Wo Contrast [...] SENSITIVE REFLEX 1HOUR (11/14/2024 11:10 PM CDT) [facility] Troponin I High Sensitive <3 <=14 ng/L 11/15/2024 12:07 AM T [facility] Delta Troponin I HS 11/15/2024 12:07 AM T [facility] Comment:Delta value intentio sandor not calculated. Baseline to 1 hour specimen collection interval exceeded. Blood BLOOD SPECIMEN / Unknown Venipuncture / Unknown 11/14/2024 11:10 PM CDT 11/14/2024 11:33 PM CDT us Dustin Singh MD LAB - CHEMISTRY ORDERABLES Final Result [facility] [address] [place] [address], [facility] [phone] * LIPID PROFILE (11/14/2024 11:10 PM CDT) [facility] Cholesterol Total 138 <200 mg/dL 11/15/2024 12:02 AM CDT [facility] HDL 48 >40 mg/dL 11/15/2024 12:02 AM T [facility] Comment: ATP III Classification of HDL Cholesterol: <40 mg/dL: Considered a major risk factor. >60 mg/dL: Considered a negative risk factor. LDL Calculated 72 <100 mg/dL 11/15/2024 12:02 AM CDT [facility] Comment: ATP III Classification of LDL Cholesterol: <100 mg/dL: Optimal 100 - 129 mg/dL: Near Optimal/Above Optimal 130 - 159 mg/dL: Borderline High 160 - 189 mg/dL: High >190 mg/dL: Very High LDL is calculated using the Friedewald equation. Triglycerides 88 <150 mg/dL 11/15/2024 12:02 AM CDT [facility] Comment: ATP III Classification of Triglycerides: <150 mg/dL: Normal 150 - 199 mg/dL: Borderline High 200 - 400 mg/dL: High >500 mg/dL: Very High Blood BLOOD SPECIMEN / Unknown Venipuncture / Unknown 11/14/2024 11:10 PM CDT 11/14/2024 11:33 PM CDT Dustin Singh MD LAB - CHEMISTRY ORDERABLES Final Result [address] [address], [place] [phone] * TROPONIN-I HIGH SENSITIVE BASELINE + 1HR (11/14/2024 9:27 PM CDT) Troponin I High Sensitive <3 <=14 ng/L 11/14/2024 10:44 PM CDT [facility] Blood BLOOD SPECIMEN / Unknown Venipuncture / Unknown 11/14/2024 9:27 PM CDT 11/14/2024 10:04 PM CDT Dustin Singh MD LAB - CHEMISTRY ORDERABLES Final Result [address] [address], [place] [phone] * XR CHEST 1VW PORTABLE (11/14/2024 8:37 [...] Marcelino Cervantes MD on 11/14/2024 8:43 PM us Dustin Singh MD DIAGNOSTIC IMAGING ORDERABLES Fi nal Result * TROPONIN-I HIGH SENSITIVE (11/14/2024 8:14 PM CDT) Troponin I High Sensitive <3 <=14 ng/L 11/14/2024 8:56 PM CDT [facility] Blood BLOOD SPECIMEN / Unknown Venipuncture / Unknown 11/14/2024 8:14 PM CDT 11/14/2024 8:20 PM CDT Ayden Alba MD LAB - CHEMISTRY ORDERABLES F inal Result [facility] [address] [place] [address], [place] [phone] * PTT (11/14/2024 8:14 PM CDT) APTT 29.6 23.0 - 38.4 Seconds 11/14/2024 8:44 PM CDT [facility] Comment:Suggested therapeuti c range for full dose I.V. unfractionated heparin therapy for venous thromboembolism is 71 to 109 seconds. Blood BLOOD SPECIMEN / Unknown Venipuncture / Unknown 11/14/2024 8:14 PM CDT 11/14/2024 8:20 PM CDT Ayden Alba MD LAB - COAGULATION ORDERABLES Final Result Performing Organization Address City/[facility]/ZIP Co de Phone Number [address] [address], [facility] [phone] * PT-INR (11/14/2024 8:14 PM CDT) [facility] PT 12.6 12.1 - 14.8 Seconds 11/14/2024 8:44 PM CDT [facility] INR 1.0 See Comment 11/14/2024 8:44 PM CDT [facility] Comment:The suggested therap eutic range for standard coumadin (warfarin) therapy is an INR of 2.0-3.0. For high-risk patients (Mechanical Mitral Valve Prosthesis, etc.), the suggested prophylactic therapeutic range is an INR of 2.5-3.5. Blood BLOOD SPECIMEN / Unknown Venipuncture / Unknown 11/14/2024 8:14 PM CDT 11/14/2024 8:20 PM CDT Ayden Alba MD LAB - COAGULATION ORDERABLES Final Result [address] [address], [facility] [phone] * CBC W AUTO DIFFERENTIAL (11/14/2024 8:14 PM CDT) Pathologist [facility] WBC 7.4 4.0 - 10.7 x10E9/L 11/14/2024 8:28 PM [facility] RBC Count 4.34 3.90 - 5.20 x10E12/L 11/14/2024 8:28 PM [facility] Hemoglobin 12.5 11.9 - 15.8 g/dL 11/14/2024 8:28 PM [facility] Hematocrit 37.9 34.8 - 46.1 % 11/14/2024 8:28 PM [facility] MCV 87.3 80.0 - 98.0 fL 11/14/2024 8:28 PM [facility] MCH 28.8 26.7 - 33.6 pg 11/14/2024 8:28 PM [facility] MCHC 33.0 31.7 - 36.3 g/dL 11/14/2024 8:28 PM [facility] RDW-CV 13.6 11.3 - 14.8 % 11/14/2024 8:28 PM [facility] Platelet Count 282 150 - 420 x10E9/L 11/14/2024 8:28 PM [facility] MPV 10.1 7.8 - 11.4 fL 11/14/2024 8:28 PM [facility] Neutrophil % 66.5 41.0 - 74.0 % 11/14/2024 8:28 PM [facility] Lymphocyte % 24.7 17.0 - 47.0 % 11/14/2024 8:28 PM [facility] Monocyte % 5.4 3.0 - 11.0 % 11/14/2024 8:28 PM [facility] Eosinophil % 3.0 0.0 - 7.0 % 11/14/2024 8:28 PM [facility] Basophil % 0.1 0.0 - 1.6 % 11/14/2024 8:28 PM [facility] Immature Granulocytes % 0.3 0.0 - 1.0 % 11/14/2024 8:28 PM [facility] Neutrophil Absolute 4.89 1.60 - 7.50 x10E9/L 11/14/2024 8:28 PM [facility] Lymphocyte Absolute 1.82 1.00 - 4.40 x10E9/L 11/14/2024 8:28 PM [facility] Monocyte Absolute 0.40 0.15 - 1.00 x10E9/L 11/14/2024 8:28 PM [facility] Eosinophil Absolute 0.22 0.00 - 0.60 x10E9/L 11/14/2024 8:28 PM [facility] Basophil Absolute 0.01 0.00 - 0.13 x10E9/L 11/14/2024 8:28 PM [facility] Blood BLOOD SPECIMEN / Unknown Venipuncture / Unknown 11/14/2024 8:14 PM CDT 11/14/2024 8:20 PM CDT us Ayden Alba MD LAB - HEMATOLOGY ORDERABLES Final Result [facility] [address] [place] [address], [facility] [phone] * (ABNORMAL) COMPREHENSIVE METABOLIC PANEL (11/14/2024 8:14 PM CDT) BUN 8 7 - 26 mg/dL 11/14/2024 8:52 PM [facility] Creatinine 0.55(L) 0.56 - 0.96 mg/dL 11/14/2024 8:52 PM [facility] Sodium 140 136 - 145 mmol/L 11/14/2024 8:52 PM [facility] Potassium 3.7 3.5 - 4.5 mmol/L 11/14/2024 8:52 PM [facility] Chloride 108(H) 98 - 107 mmol/L 11/14/2024 8:52 PM [facility] CO2 25 22 - 29 mmol/L 11/14/2024 8:52 PM [facility] Glucose 105(H) 70 - 99 mg/dL 11/14/2024 8:52 PM [facility] Calcium 9.3 8.4 - 10.2 mg/dL 11/14/2024 8:52 PM [facility] Protein Total 6.7 6.0 - 8.3 g/dL 11/14/2024 8:52 PM [facility] Albumin 3.7 3.4 - 5.0 g/dL 11/14/2024 8:52 PM [facility] Bilirubin Total 0.3 0.2 - 1.2 mg/dL 11/14/2024 8:52 PM [facility] Alkaline Phosphatase 150 40 - 150 U/L 11/14/2024 8:52 PM [facility] ALT 23 5 - 55 U/L 11/14/2024 8:52 PM [facility] AST 17 5 - 34 U/L 11/14/2024 8:52 PM [facility] Anion Gap 7 6 - 16 11/14/2024 8:52 PM [facility] BUN/Creatinine Ratio 15 7 - 23 11/14/2024 8:52 PM [facility] Osmolality Calculated 289 275 - 295 mOsm/kg 11/14/2024 8:52 PM [facility] Albumin/Globulin Ratio 1.2 1.1 - 2.3 11/14/2024 8:52 PM [facility] eGFR by CKD-EPI >90 >=90 mL/min/1.7 3 m2 11/14/2024 8:52 PM [facility] Comment:Estimated Glomerular Filtration Rate (eGFR) calculated using the CKD-EPI Creatinine Equation (2020), per the National Kidney Foundation and [place] [employer]ph[employer] recommendations. Blood BLOOD SPECIMEN / Unknown Venipuncture / Unknown 11/14/2024 8:14 PM CDT 11/14/2024 8:20 PM CDT us Ayden Alba MD LAB - CHEMISTRY ORDERABLES F inal Result [address] [address], [facility] [phone] * CT ANGIO BRAIN NECK STROKE (11/14/2024 [...] DATE/TIME OF EXAM: 11/14/2024 8:04 PM, LOCATION [facility] INDICATION: R53.1: Weakness ADDITIONAL CLINICAL INFORMATION: Ordering [...] STROKE, DATE/TIME OF EXAM: :04 PM, LOCATION [facility] INDICATION: R53.1: Weakness ADDITIONAL CLINICAL INFORMATION: Ordering [...] without significant focal stenosis. 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 The remaining right [...] DATE/TIME OF EXAM: 11/14/2024 7:45 PM, LOCATION [facility] INDICATION: R53.1: Weakness EXAMINATION: Computed tomography (CT) [...] DATE/TIME OF EXAM: 11/14/2024 7:45 PM, LOCATION [facility] INDICATION: R53.1: Weakness EXAMINATION: Computed tomography (CT) [...] Final Result from Last 3 Months Insurance [facility] Advance Directives * Full Code (Latest Code Status on File) Date Activated Date Inactivated Comments 01/26/2025 1:27 PM 01/27/2025 11:21 AM * Full Code Date Activated Date Inactivated Comments 11/14/2024 8:18 PM 11/16/2024 7:33 PM Care Teams Feltmaker And Weigher Relationship Specialty Start Date End Date Herb Tate, MICROFILMER-HOME STAGING SPECIALIST [address] [place] [id number] PCP - General Nurse Practitioner 11/14/24
--- OUTSIDE RECORDS SUMMARY | 2025-01-27 13:22 | XMS_ITS | Clinical Summary ---
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
--- NOTE | 2025-01-27 13:34 | ED_ITS ---
HPI - Dizziness General Chief Complaint: Dizziness Stated Complaint: took old pain pill Time Seen by Provider: 01/27/25 13:32 Source: patient Mode of arrival: EMS Limitations: no limitations History of Present Illness HPI Narrative: Patient is a 59-year-old female with a right heart catheterization done yesterday and increased pain and ecchymosis of the right groin area. She is on blood thinners. Patient took an old Vicodin which caused her to be dizzy and woozy today. She called EMS. She got scared with the old Vicodin. She is having pain in the right groin area. MD elicited complaint: dizziness Pertinent past history: other (Coronary artery disease with right heart catheterization yesterday) Onset (ago): day(s) (2) Timing: gradual onset Severity: moderate Description: lightheadedness Context: other (Patient took an old Vicodin for her right groin pain and had some side effects of dizziness and wooziness) Exacerbating factors: movement/ambulation Relieving factors: remaining still Associated symptoms: denies other symptoms Associated neuro symptoms: limb ataxia Stroke scale total: 0 Related Data Home Medications ?Medication ?Instructions ?Recorded ?Confirmed ?Last Taken ?Type omeprazole magnesium 20 mg 20 mg PO DAILY 04/13/1911/24/24 History tablet,delayed release (Prilosec OTC) multivitamin with minerals 1 tablet PO DAILY 12/01/21 12/30/24 11/24/24 History lisinopril 40 mg tablet 40 mg PO DAILY 10/31/2212/0711/24/24 History metformin 500 mg tablet,extended 500 mg PO BID 4 12/30/24 11/24/24 History release 24 hr topiramate 50 mg tablet 50 mg PO DAILY 09/28/2312/0711/24/24 History alprazolam 1 mg tablet 1 mg PO BID PRN Anxiety 07/0712/30/24 07/29/24 History atorvastatin 20 mg tablet 20 mg PO DAILY 08/12/2412/0711/24/24 History olanzapine 7.5 mg tablet 7.5 mg PO HS 11/24/2411/23/24 History fluoxetine 20 mg capsule mg 01/13/25 Unknown History nitroglycerin 0.4 mg sublingual mg 01/13/25 Unknown H istory tablet nystatin 100,000 unit/gram topical topical 01/13/25 U nknown History powder (Nystop) tiotropium bromide 2.5 inhalation 01/13/25 Unknown History mcg/actuation mist for inhalation (Spiriva Respimat) Allergies Allergy/AdvReac Type Severity Reaction Status Date / Time No Known Allergies Allergy Unknown Verified 01/27/25 13:52 Review of Systems Review of Systems: All systems reviewed & are unremarkable except as noted in HPI and below Constitutional: Constitutional: Reports no additional constitutional complaints Eyes: Eyes: Reports no additional eye complaints ENT: Reports system reviewed and no additional complaints, except as documented Cardiovascular: Cardiovascular: Reports no additional cardiovascular complaints Respiratory: Respiratory: Reports no additional respiratory complaints Gastrointestinal: Gastrointestinal: Reports no additional gastrointestinal complaints Genitourinary: Genitourinary: Reports no additional female genitourinary complaints Musculoskeletal: Musculoskeletal: Reports no additional musculoskeletal complaints Integumentary/Breasts: Skin/Breast: Reports system reviewed and no additional complaints, except as docu Neurologic: Reports system reviewed and no additional complaints, except as documented Psychiatric: Psychiatric: Reports no additional psychiatric complaints Endocrine: Endocrine: Reports no additional endocrine complaints Hematologic/Lymphatic: Hematologic/Lymphatic: Reports no additional hematologic/lymphatic complaints Allergic/Immunologic: Allergic/Immunologic: Reports no additional allergic/immunologic complaints PMFSH Past Medical History Medical History Diabetes Pulmonary embolism After cholecystectomy in 1991 Migraines Bipolar disorder Morbid obesity with BMI of 40.0-44.9, adult Necrotizing pneumonia Two thousand twenty-two Insect bite Hx MRSA infection Congestive heart failure Hypertension COPD (chronic obstructive pulmonary disease) Asthma Anxiety Depression Surgical History Surgical History History of hysterectomy for benign disease (2007) History of left oophorectomy (~2007) History of incision and drainage Several areas to left forearm for MRSA 2001 History of cholecystectomy (~1991) History of tubal ligation Family History Family History Father Valvular heart disease Mother , Mother at age 60. Diabetes mellitus Smoker Sibling Rheumatoid arthritis Has RA in her hands, sees holter scanning technician. Social History Social History Social History: The patient is but lives with her boyfriend, of 26 years, and her daughter and granddaughter. She has a daughter and a son. Her oldest son She used to binge drink about once a month until she was unconscious but quit drinking alcohol around age 41. She used to smoke crack cocaine from about age 26 to age 41. She reports she started smoking in order to deal with her withdrawal from the other substances and she proceeded to smoke 1.5 packs of cigarettes per day for about 8 years but quit smoking at age 51. She works at [employer] in the [employer]. Code status: Full code Surrogate decision maker: Her son Smoking packs per day: 1.5 Smoking cigarettes per day: 30.0 Years smoked: 8 Smoking pack-years: 12.00 Smoking status: Former smoker Tobacco type: cigarettes Second hand tobacco smoke exposure: Yes Smoking end date: 02/06/16 Additional smoking assessment comments: Began smoking pot as a kid and quit 2018. Began smoking cigarettes after Alcohol intake: former Substance use: former Substance use type: former substance user Other substance usage details: former marijuna user Lack of Transportation: No Lack of Food: Never True Current Housing: I Do Not Have Housing Concerned About Future Housing: No Difficulty Paying Gas/Electric Bills: No Difficulty Paying for Meds: No Currently Unemployed: No Education: High School Diploma/GED Difficulty w/ Childcare or Family Care: No Spiritual care concerns: No ([facility]) Exam Const: General: healthy appearing Nutritional Appearance: well nourished Orientation/consciousness: patient oriented x3 Limitations: no limitations HENMT: Head: normal to inspection Ears: TM's normal bilaterally Face/Nose/Sinus: Normal external nose present Eyes: Conjunctivae: conjunctivae normal Pupils: Equal, round and reactive pupils present EOM: EOMs intact bilaterally Neck: Neck: normal visual inspection Chest: Chest palpation & inspection: normal inspection of the chest Resp: Effort & Inspection: normal respiratory effort and not labored Auscultation: clear to auscultation bilaterally and no crackles Cardio: Rate: regular rate Rhythm: regular rhythm Heart sounds: no murmurs GI: Inspection: non-distended GI Palp: Yes Soft to palpation and No Tenderness to palpation present (GI) Auscultation: normal bowel sounds : General: Yes bladder normal to palpation Back/Spine/Pelvis: Back: no CVA tenderness Skin: General skin exam: normal color Rashes: no rashes Wounds: wound noted Other: Right groin has a small opening for right heart catheterization with large area of ecchymosis extending into the anterior pelvis and right groin Neuro: General: patient oriented x3, moves all extremities, no meningeal signs, no focal motor deficits and CN's II-XI intact bilaterally Cranial nerves: Yes Nystagmus not present Speech: normal speech Gait exam (Neuro): Normal gait present (Off balance due to the dizziness) Other: Fast exam negative, NIH score is 0, GCS is 15 Extrem: General: normal to inspection, no clubbing, cyanosis or edema and no pedal edema Psych: Mental Status: mental status grossly normal Affect: normal affect Attitude: cooperative Course Vital Signs Vital signs: Vital Signs Pulse Rate 86 01/27/25 13:34 Respiratory Rate 18 01/27/25 13:34 Blood Pressure 109/65 01/27/25 13:34 Pulse Oximetry 96 01/27/25 13:34 Oxygen Delivery Room Air 01/27/25 13:34 Pulse Rate 86 01/27/25 13:34 Respiratory Rate 18 01/27/25 13:34 Blood Pressure 109/65 01/27/25 13:34 Pulse Oximetry 96 01/27/25 13:34 Oxygen Delivery Room Air 01/27/25 13:34 [facility] MDM Narrative Medical decision making narrative: Patient is a 59-year-old female with right heart catheterization yesterday and increased pain today and took an old Vicodin with some side effects of dizziness. Reassurance of the side effects will clear in a short period of time hopefully while she is in the emergency room. As for the increased pain, I ultrasound the area which did not show pseudo aneurysm or other acute findings besides a small hematoma. I will call threading machine tender to review the case. I discussed the case with the threading machine tender and he will see her as a walk-in tomorrow. He said as long as the area did not have a pseudo aneurysm on the ultrasound she is safe to go home until he sees her tomorrow. Ultrasound was clear of pseudo aneurysm. Differential Diagnosis Differential Diagnosis: Post catheterization pain, pseudo aneurysm Imaging Data Attestation: I personally reviewed and interpreted this imaging study as follows: Radiologist's impression: ITS Impressions Duplex Scan Lower Extremity Artery 01/27/25 14:16 IMPRESSION: 1. No evident pseudoaneurysm or AV fistula at the right groin. 2. 1.8 x 1.4 x 0.8 cm hypoechoic subcutaneous lesion at the right groin which could represent either a normal inguinal lymph node or small hematoma. Right groin ultrasound was negative for pseudo aneurysm or similar abnormality; there was a small hematoma Discharge Plan Discharge Clinical Impression: Postprocedural pain of extremity following cardiac catheterization Patient Disposition: Home Condition: Stable Instructions: Heart Catheterization (DC) Additional Instructions: Please follow-up with the cardiac DrAlisa Kaur tomorrow between 8:00 a.m. and 2:00 p.m. at his office in [place]. He said to tell the front desk manager that he told you to come as a walk-in patient. Use Tylenol for pain. Do not use old Vicodin. Patient Language: Frisian Prescriptions: No Action omeprazole magnesium [Prilosec OTC] 20 mg Tablet,Delayed Release (Dr/Ec) 20 mg PO DAILY lisinopril 40 mg tablet 40 mg PO DAILY metformin 500 mg tablet extended release 24 hr 500 mg PO BID topiramate 50 mg tablet 50 mg PO DAILY olanzapine 7.5 mg tablet 7.5 mg PO HS cefdinir 300 mg capsule 300 mg PO Q12H Qty: 10 0RF Rx Instructions: start on 01/01/2025 in the morning nitroglycerin 0.4 mg tablet, sublingual nystatin [Nystop] 100,000 unit/gram powder TOPICAL fluoxetine 20 mg capsule Spiriva Respimat 2.5 mcg/actuation mist INHALATION prednisone 10 mg tablet See Taper PO DAILY 15 Days Qty: 45 0RF Taper: Prednisone Taper from 50 mg;15 days 50 mg DAILY for 3 Days and 0 Hour 40 mg DAILY for 3 Days and 0 Hour 30 mg DAILY for 3 Days and 0 Hour 20 mg DAILY for 3 Days and 0 Hour 10 mg DAILY for 3 Days and 0 Hour magnesium chloride [Mag-Delay] 64 mg tablet,delayed release (DR/EC) 64 mg PO DAILY Qty: 30 5RF atorvastatin 20 mg tablet 20 mg PO DAILY multivitamin with minerals Tablet 1 tablet PO DAILY albuterol sulfate 90 mcg/actuation HFA aerosol inhaler 2 puff INHALATION Q4H PRN (Reason: Wheezing) Qty: 1 0RF alprazolam 1 mg tablet 1 mg PO BID PRN (Reason: Anxiety) aspirin 81 mg Tablet,Delayed Release (Dr/Ec) 81 mg PO QAM Qty: 30 0RF Follow-up/Referrals: Lea,Herb Liang NP [Primary Care Provider, [facility]] Time of Disposition: 14:46
--- OUTSIDE RECORDS SUMMARY | 2025-01-27 14:10 | XMS_ITS | Clinical Summary ---
Author Organization [facility] Address [address] [facility] [place] [address] Phone Care Team Providers Care Stereoplotter Operator Name Role Phone Rhianna Shepard EVA [...] Insurance MEDICAID [employer] Care Teams Stereoplotter Operator Relationship Specialty Start Date End Date Rhianna Shepard PAC [address] [place] [address] PCP - General Advanced Practice Nurse 07/02/23
--- OUTSIDE RECORDS SUMMARY | 2025-01-27 14:10 | XMS_ITS | Encounter Summary ---
Author Organization [facility] Address [address] [place] [address] Care Team Providers Care Education Program Associate Name Role Phone Herb Tate CHAR PULLER-COMPETITIVE SHOPPER Primary Care Provider [phone] Encounter Details Date Type Department Care Team [...] and heating? Not hard at all 11/15/2024 Citizen [place] [facility] - Occupational Stress [...] any time in the past 12 m [facility] [place], were you homeless or living in a snf (including now)? No 11/15/2024 Comments No Sex [...] st Contact Info) Description 02/09/2025 11:00 AM PRESENTATION DESIGNER Appointment [facility] [address] [place] [address] Eveline Roland APRN-COMPETITIVE SHOPPER [id number] [place] [address] 02/19/2025 11:00 AM PRESENTATION DESIGNER Office Visit [facility] - Neurology [address] [facility] [place] [address] Miesha Adamson PA-C [address] [facility] [address] [place] [phone] 03/06/2025 9:20 AM PRESENTATION DESIGNER Office Visit [facility] - Cardiology [address] [facility] [address] [place] [phone] Sussy Kaur MD [id number] [place] [address] documented as of this encounter Visit Diagnoses Not on filedocumented in this encounter Care Teams Education Program Associate Relationship Specialty Start Date End Date Herb Tate APRN-COMPETITIVE SHOPPER [address] [place] [place] [id number] PCP - General Nurse Practitioner 11/14/24 documented as of this encounter
--- OUTSIDE RECORDS SUMMARY | 2025-01-27 14:11 | XMS_ITS | Clinical Summary ---
Author Organization [facility] [address] Address [address] [place] [address] Phone Care Team Providers Care Electric Screw Driver Operator Name Role Phone Rhianna Shepard Primary Care Provider [phone] Allergies No known active allergies Medications No known medications Social History Tobacco Use Types Packs/Day Years Used Date Smoking Tobacco: Former Smokeless Tobacco: Former Comments Unknown Sex and Gender Information Value Date Recorded Sex Assigned at Not on file Legal Sex Female 12:31 PM [employer] Gender Identity Not on file Sexual Orientation [...] Plan of Treatment Not on file Insurance [facility] Care Teams Electric Screw Driver Operator Relationship Specialty Start Date End Date Rhianna Shepard PA [address] [place] [address] PCP - General Emergency Medicine 04/29/18
--- OUTSIDE RECORDS SUMMARY | 2025-01-27 14:11 | XMS_ITS | Encounter Summary ---
Author Organization [facility] Address [facility] [place] [address] Care Team Providers Care Screen Stretcher Name Role Phone Rhianna Shepard Primary Care Provider [phone] Encounter Details Date Type Department Care Team (Late st Contact Info) Description 07/13/2018 Abstract [facility]FL CONVERSION [address] [place] [address] , Generic Conversion, Social History Tobacco Use [...] on filedocumented in this encounter Care Teams Screen Stretcher Relationship Specialty Start Date End Date Rhianna Shepard PA [address] [place] [address] PCP - General PHYSICIAN MENTAL HEALTH PROGRAM MANAGER 11/18/19 documented as of this encounter
--- OUTSIDE RECORDS SUMMARY | 2025-01-27 14:11 | XMS_ITS | Clinical Summary ---
Author Organization [facility] Address [address] [place] [address] Care Team Providers Care Medical Claims Analyst Name Role Phone Herb Tate BOOKMAKER MAP-DISTRICT MANAGER PRIMARY CARE SALES Primary Care Provider [phone] Source Comments [facility],non-[facility] Affiliates and Associated Physician Practices is amultiple site organization consisting of ambulatory clinics and hospital sitesin [place], [place], [place] and [place]. This disclosure is being madepursuant to the Care Everywhere program and may not contain all information available regarding this patient. Last updated 17.[facility] Allergies Active Allergy Reactions Criticality Noted Date [...] as needed for pain 5 Active Klayesta 049108 UNIT/GM powder APPLY 1 APPLICATION TOPICALLY TWICE DAILY FOR 7 DAYS Active nystatin (Mycostatin) 400128 UNIT/GM cream APPLY TOPICALLY TO THE AFFECTED [...] daily 90 tablet 1 01/27/2025 10:20 AM CHILD DAY CARE TEACHER 5 Active celecoxib (CeleBREX) 100 MG [...] 11/15/2024 Weakness 11/14/2024 Cerebrovascular accident (CVA), unspecified [facility] 11/14/2024 Encounters Date Type Department Care Team Description 01/26/2025 9:56 AM CHILD DAY CARE TEACHER - 01/26/2025 11:59 PM CHILD DAY CARE TEACHER Hospital Encounter [facility] - Cardiac Swatcher [address] [place] [address] Sussy Kaur MD Discharge Disposition: Home or Self Care 01/26/2025 9:40 AM CHILD DAY CARE TEACHER - 01/26/2025 11:34 AM CHILD DAY CARE TEACHER Surgery [facility] - Cardiac Swatcher [address] [place] [address] Sussy Kaur MD Patent Foramen Ovale (PFO) Closure 01/26/2025 7:28 AM CHILD DAY CARE TEACHER - 01/27/2025 10:21 AM [facility] Hospital Encounter [facility] 8N ACUTE [address] [place] [address] Sussy Kaur MD Cardiac Catheterization Discharge Disposition: Home or Self Care 01/26/2025 Travel 01/23/2025 Telephone [facility] - Cardiology [address] [facility], [facility] [address] [place] [address] Sussy Kaur MD Question 01/05/2025 Orders Only [facility] - Cardiac Swatcher [address] [place] [phone] Sussy Kaur MD Stable angina ; ALLEN (dyspnea on exertion); Mixed hyperlipidemia; History of tobacco use; Type 2 diabetes mellitus without complication, without long-term current use of insulin (HCC) 12/31/2024 4:40 PM CHILD DAY CARE TEACHER Video [facility] [address] [place] [phone] Sussy Kaur MD PFO (patent foramen ovale) (HCC) ; Cerebrovascular accident (CVA), unspecified mechanism (HCC) 12/31/2024 Orders Only [facility] - Cardiac Swatcher [address] [place] [phone] Sussy Kaur MD PFO (patent foramen ovale) (HCC) ; History of TIA (transient ischemic attack) 12/19/2024 6:35 AM CHILD DAY CARE TEACHER - 12/19/2024 11:59 PM CHILD DAY CARE TEACHER Hospital Encounter [facility] - Cardiac Swatcher [address] [place] [phone] Sussy Kaur MD Discharge Disposition: Home or Self Care 12/19/2024 Travel 12/08/2024 Transcribe Orders [facility] - Centralized Scheduling [address] [place] [address] Herb Tate, BOOKMAKER MAP-DISTRICT MANAGER PRIMARY CARE SALES Transient neurological symptoms 11/28/2024 10:00 AM CDT [facility] Cardiology [address] [phone] Sussy Kaur MD Cerebrovascular accident (CVA), unspecified mechanism (HCC) (Primary Dx) 11/28/2024 Travel 11/25/2024 Travel 11/14/2024 7:37 PM CDT - 11/16/2024 5:57 PM CDT Hospital Encounter [facility] 3N ICU [address] [place] [phone] Dustin Singh MD Edgell, Randall C, MD [...] and heating? Not hard at all 11/15/2024 [facility] of Occupat ional Health - Occupational Stress [...] any time in the past 12 m [facility], were you homeless or living in a skilled nursing (including now)? No 11/15/2024 Comments No Sex and Gender Information Value Date Recorded Sex Assigned at Not on file Legal Sex Female 5:58 PM CHILD DAY CARE TEACHER Gender Identity Not on file Sexual Orientation Not on file Last Filed Vital Signs Vital Sign Reading Time Taken Comments Blood Pressure 124/78 01/27/2025 7:35 AM CHILD DAY CARE TEACHER Pulse 101 01/27/2025 7:35 AM CHILD DAY CARE TEACHER Temperature 36.7 C (98.1 F) 01/27/2025 7:35 AM CHILD DAY CARE TEACHER Respiratory Rate 17 01/27/2025 4:51 AM CHILD DAY CARE TEACHER Oxygen Saturation 96% 01/27/2025 8:00 AM CHILD DAY CARE TEACHER Inhaled Oxygen Concentration 21% 01/26/2025 3 :00 PM CHILD DAY CARE TEACHER Weight 127.5 kg (281 lb) 01/26/2025 7:55 AM CHILD DAY CARE TEACHER Height 167.6 cm (5' 6) 01/26/2025 7:55 AM CHILD DAY CARE TEACHER Body Mass Index 45.35 01/26/2025 7:55 AM CHILD DAY CARE TEACHER Plan of Treatment Upcoming Encounters Date Type Department Care Team (Late st Contact Info) Description 02/09/2025 11:00 AM CHILD DAY CARE TEACHER Appointment [facility] CAT SCAN [address] [place] [phone] Eveline Roland, MIQUEL-DISTRICT MANAGER PRIMARY CARE SALES [address] [facility] [address] [place] [address] 02/19/2025 11:00 AM CHILD DAY CARE TEACHER Office Visit [facility] - Neurology [address] [facility] [place] [phone] Miesha Adamson PA-C [address] [facility] [address] [place] [phone] 03/06/2025 9:20 AM CHILD DAY CARE TEACHER Office Visit [facility] - Cardiology [address] [facility], [facility] [address] [place] [address] Sussy Kaur MD [address] [place] [address] Health Maintenance Due Date Last Done Comments [...] this topic Medical Devices Implanted Type Area Pneumatic Jacketer Device Identifier Shelf Expiration Date Model / Serial / Lot Houghton Cardioform 48mm Implanted:Qty: 1 on 01/26/2025 by Sussy Kaur MD at [facility] Occluder [employer] 05/22/2026 [id number] / [id number] / [id number] Oclr Cv 80cm 37mm 10-14fr Spt Cath Houghton - [id number] Implanted:Qty: 1 on 01/26/2025 by Sussy Kaur MD at [facility] [employer] [id number] 10/31/2026 [id number] / [id number] / [id number] Procedures Procedure Name Priority Date/Time Associated Diagnosis Comments MAGNESIUM BLOOD Routine 01/27/2025 8:34 AM CHILD DAY CARE TEACHER PFO (patent foramen ovale) (HCC) History of TIA (transient ischemic attack) BASIC METABOLIC PANEL (CALCIUM TOTAL) AM Draw 01/27/2025 8:34 AM CHILD DAY CARE TEACHER PFO (patent foramen ovale) (HCC) History of TIA (transient ischemic attack) GLUCOSE - POINT OF CARE Routine 01/27/2025 7:32 AM CHILD DAY CARE TEACHER CBC W/O DIFFERENTIAL AM Draw 01/27/2025 2:26 AM CHILD DAY CARE TEACHER PFO (patent foramen ovale) (HCC) History of TIA (transient ischemic attack) GLUCOSE - POINT OF CARE Routine 01/26/2025 9:32 PM CHILD DAY CARE TEACHER GLUCOSE - POINT OF CARE Routine 01/26/2025 5:20 PM CHILD DAY CARE TEACHER ECHO LIMITED W CONTRAST W BUBBLE STUDY PENDING DISCHARGE 01/26/2025 4:34 PM CHILD DAY CARE TEACHER PFO (patent foramen ovale) (HCC) History of TIA (transient ischemic attack) CCL RIGHT HEART CATH Routine 01/26/2025 11:57 AM CHILD DAY CARE TEACHER PFO (patent foramen ovale) (HCC) History of TIA (transient ischemic attack) Procedure Note - Rayshawn Williamson MD - 01/26/2025 11:57 AM CSTThis note is in progress. Successful ICE guided closure of PFO with 48 mm Houghton ASD closuredevice. There is no pulmonary hypertension.(Mean [...] 16 Fr Shth Intro 33Cm 6.1Mm 16Fr Houghton Dryseal sheath was inserted. PFO/ASD Patient Prep [...] perclose devices used for closure of 16 macanese access site in the right common femoral vein. Vascade used for closure of 11 macanese entry point in the right common femoral vein. Right Heart Cath Cardiac output measurements were performed using the Jahaira method. The catheter was inserted into the right femoral vein. There is no pulmonary hypertension. Recommendations - Recommend dual anti platelet therapy for at least 6 months. - Antibiotics prophylaxis before dental procedures CCL PATENT FORAMEN OVALE CLOSURE Routine 01/26/2025 11:57 AM CHILD DAY CARE TEACHER PFO (patent foramen ovale) (HCC) History of TIA (transient ischemic attack) Procedure Note - Rayshawn Williamson MD - 01/26/2025 11:57 AM CSTThis note is in progress. Successful ICE guided closure of PFO with 48 mm Houghton ASD closuredevice. There is no pulmonary hypertension.(Mean [...] 16 Fr Shth Intro 33Cm 6.1Mm 16Fr Houghton Dryseal sheath was inserted. PFO/ASD Patient Prep [...] perclose devices used for closure of 16 macanese access site in the right common femoral vein. Vascade used for closure of 11 macanese entry point in the right common femoral vein. Right Heart Cath Cardiac output measurements were performed using the Jahaira method. The catheter was inserted into the right femoral vein. There is no pulmonary hypertension. Recommendations - Recommend dual anti platelet therapy for at least 6 months. - Antibiotics prophylaxis before dental procedures BLOOD TYPE VERIFICATION Routine 01/26/2025 9:33 AM CHILD DAY CARE TEACHER GLUCOSE - POINT OF CARE Routine 01/26/2025 8:18 AM CHILD DAY CARE TEACHER TYPE + SCREEN PANEL Routine 01/26/2025 8 :06 AM CHILD DAY CARE TEACHER CBC W/O DIFFERENTIAL JESSICA 01/26/2025 8:06 AM CHILD DAY CARE TEACHER PFO (patent foramen ovale) (HCC) History of TIA (transient ischemic attack) BASIC METABOLIC PANEL (CALCIUM TOTAL) JESSICA 01/26/2025 8:06 AM CHILD DAY CARE TEACHER PFO (patent foramen ovale) (HCC) History of TIA (transient ischemic attack) ECHO MARY COMPLETE Routine 12/19/2024 10:06 AM CHILD DAY CARE TEACHER Cerebrovascular accident (CVA), unspecified mechanism (HCC) GLUCOSE - POINT OF CARE Routine 12/19/2024 8:01 AM CHILD DAY CARE TEACHER CBC W/O DIFFERENTIAL Routine 12/19/2024 7:55 AM CHILD DAY CARE TEACHER Cerebrovascular accident (CVA), unspecified mechanism (HCC) BASIC METABOLIC PANEL (CALCIUM TOTAL) Routine 12/19/2024 7:55 AM CHILD DAY CARE TEACHER Cerebrovascular accident (CVA), unspecified mechanism (HCC) [...] METABOLIC PANEL (CALCIUM TOTAL) (01/27/2025 8:34 AM CHILD DAY CARE TEACHER) Only the most recent of5 resultswithin the time period is included. BUN 9 7 - 26 mg/dL 01/27/2025 9:15 AM [facility] Creatinine 0.52(L) 0.56 - 0.96 mg/dL 01/27/2025 9:15 AM [facility] Sodium 137 136 - 145 mmol/L 01/27/2025 9:15 AM [facility] Potassium 4.1 3.5 - 4.5 mmol/L 01/27/2025 9:15 AM [facility] Chloride 106 98 - 107 mmol/L 01/27/2025 9:15 AM [facility] CO2 23 22 - 29 mmol/L 01/27/2025 9:15 AM [facility] Glucose 200(H) 70 - 99 mg/dL 01/27/2025 9:15 AM [facility] Calcium 8.9 8.4 - 10.2 mg/dL 01/27/2025 9:15 AM [facility] Anion Gap 8 6 - 16 01/27/2025 9:15 AM [facility] BUN/Creatinine Ratio 17 7 - 23 01/27/2025 9:15 AM [facility] Osmolality Calculated 288 275 - 295 mOsm/kg 01/27/2025 9:15 AM [facility] eGFR by CKD-EPI >90 >=90 mL/min/1.7 3 m2 01/27/2025 9:15 AM [facility] Comment:Estimated Glomerular Filtration Rate (eGFR) calculated using the CKD-EPI Creatinine Equation (2020), per the National Kidney Foundation and [place] Society of Nephrology recommendations. Blood BLOOD SPECIMEN / Unknown Lab Venipuncture / Unknown 01/27/2025 8:34 AM CHILD DAY CARE TEACHER 01/27/2025 8:46 AM CHILD DAY CARE TEACHER [facility] LAB - CHEMISTRY ORDERA BLES Final Result Performing Organization Address City/[facility] [place]/ZIP Co de Phone Number [address] [address], [facility] [phone] * MAGNESIUM BLOOD (01/27/2025 8:34 AM CHILD DAY CARE TEACHER) Magnesium 1.7 1.6 - 2.6 mg/dL 01/27/2025 9:15 AM [facility] Blood BLOOD SPECIMEN / Unknown Lab Venipuncture / Unknown 01/27/2025 8:34 AM CHILD DAY CARE TEACHER 01/27/2025 8:46 AM CHILD DAY CARE TEACHER [employer] BOOKMAKER MAP-DISTRICT MANAGER PRIMARY CARE SALES LAB - CHEMISTRY ORDERA BLES Final Result [address] [address], [facility] [phone] * (ABNORMAL) GLUCOSE - POINT OF CARE (01/27/2025 7:32 AM CHILD DAY CARE TEACHER) Only the most recent of11 resultswithin the time period is included. [place] [facility] Glucose WB/POC 162(H) 70 - 99 mg/dL 01/27/2025 7:54 AM [facility] Specimen Type Arterial/C apillary 01/27/2025 7:54 AM [facility] Blood BLOOD SPECIMEN / Unknown 01/27/2025 7:32 AM CHILD DAY CARE TEACHER 01/27/2025 7:54 AM CHILD DAY CARE TEACHER Sussy Kaur MD LAB - POINT OF CARE ORDERAB LES Final Result [facility] [address] [place] [address], [facility] [phone] * (ABNORMAL) CBC W/O DIFFERENTIAL (01/27/2025 2:26 AM CHILD DAY CARE TEACHER) Only the most recent of5 resultswithin the time period is included. [facility] WBC 8.5 4.0 - 10.7 x10E9/L 01/27/2025 3:03 AM [facility] RBC Count 4.09 3.90 - 5.20 x10E12/L 01/27/2025 3:03 AM [facility] Hemoglobin 11.3(L) 11.9 - 15.8 g/dL 01/27/2025 3:03 AM [facility] Hematocrit 36.1 34.8 - 46.1 % 01/27/2025 3:03 AM [facility] MCV 88.3 80.0 - 98.0 fL 01/27/2025 3:03 AM [facility] MCH 27.6 26.7 - 33.6 pg 01/27/2025 3:03 AM [facility] MCHC 31.3(L) 31.7 - 36.3 g/dL 01/27/2025 3:03 AM [facility] RDW-CV 13.8 11.3 - 14.8 % 01/27/2025 3:03 AM CHILD DAY CARE TEACHER [facility] Platelet Count 176 150 - 420 x10E9/L 01/27/2025 3:03 AM [facility] MPV 11.4 7.8 - 11.4 fL 01/27/2025 3:03 AM [facility] Blood BLOOD SPECIMEN / Unknown Lab Venipuncture / Unknown 01/27/2025 2:26 AM CHILD DAY CARE TEACHER 01/27/2025 2:56 AM CHILD DAY CARE TEACHER Ebony Gill BOOKMAKER MAP-DISTRICT MANAGER PRIMARY CARE SALES LAB - HEMATOLOGY ORDER [place] Final Result [facility] [address] [place] [address], [facility] [phone] * ECHO LIMITED W CONTRAST W BUBBLE STUDY (01/26/2025 4:34 PM CHILD DAY CARE TEACHER) Only the most recent of2 resultswithin [...] Region Laterality Modality Ultrasound 01/26/2025 3:46 PM CHILD DAY CARE TEACHER Narrative 01/26/2025 8:32 PM CHILD DAY CARE TEACHER Summary * Extremely TDS despite great [...] Room: 81 Patient Status: MDB Study Site: [facility] Primary Location: [facility] - [...] Provider: Ebony Gill Attending Physician: Ebony Gill Bracelet Form Coverer: Derik Kiser Measurements Ventricles Name Value Normal [...] Exam Date: 01/26/2025 3:46 PM Exam Room: [facility] Patient Status: MDB Study Site: [facility] Primary Location: [facility] EStud Info Technical Quality: Technically Difficult Exam Type: ECHO LIMITED W CONTRAST W BUBBLE STUDY Indications Q21.12 - PFO (patent foramen ovale) ([facility]) Z86.73 - History of TIA (transient ischemic [...] Provider: Ebony Gill Attending Physician: Ebony Gill Bracelet Form Coverer: Derik Kiser Measurements Ventricles Name Value Normal [...] Palma Larson MD on 01/26/2025 08:32 PM [employer] BOOKMAKER MAP-[employer] ECHO CUPID Final Result * BLOOD TYPE VERIFICATION (01/26/2025 9:33 AM CHILD DAY CARE TEACHER) ABO Rh A POS 01/26/2025 10:21 AM CHILD DAY CARE TEACHER [facility] BLOOD [facility] LAB Blood Bank BLOOD SPECIMEN / Unknown Venipuncture / Unknown 01/26/2025 9:33 AM CHILD DAY CARE TEACHER 01/26/2025 9:35 AM CHILD DAY CARE TEACHER [email or web address] LAB - BLOOD BANK ORDER [place] Final Result Performing Organization Address City/[facility] [place]/ZIP Co de Phone Number [facility] [address] [place] [address], [place] [phone] * TYPE + SCREEN PANEL (01/26/2025 8:06 AM CHILD DAY CARE TEACHER) Antibody Screen NEG 8:59 AM CHILD DAY CARE TEACHER [facility] B[facility] ABO Rh A POS 01/26/2025 8:59 AM CHILD DAY CARE TEACHER [facility] BLOOD [facility] LAB Blood Bank BLOOD SPECIMEN / Unknown Venipuncture / Unknown 01/26/2025 8:06 AM CHILD DAY CARE TEACHER 01/26/2025 8:16 AM CHILD DAY CARE TEACHER [email or web address] LAB - BLOOD BANK ORDER [place] Final Result [facility] B[facility]OD [facility] [address] [place] [address], [place] [phone] * ECHO MARY COMPLETE (12/19/2024 10:06 AM CHILD DAY CARE TEACHER) TR belinda torie 244 cm/s [facility] Anatomical Region Laterality Modality Ultrasound 12/19/2024 9:09 AM CHILD DAY CARE TEACHER Narrative 12/25/2024 11:33 AM CHILD DAY CARE TEACHER Summary * Left ventricular systolic function [...] 9:09 AM Patient Status: O/P Study Site: [facility] Primary Location: [facility] EStudy Info Exam Type: ECHO MARY COMPLETE Indications I63.9 - Cerebrovascular accident (CVA), unspecified mechanism (HCC) * A complete transesophageal echo was performed using 2D, color Doppler, and spectral Doppler. Staff Referring Physician: Sussy Kaur Ordering Provider: Sussy Kaur Attending Physician: Sussy Kaur Fellow: Breonna Perez Bracelet Form Coverer: Fior Franz Performing Physician: Edward Mcguire Complications [...] in satisfactory condition. Probe passed by the policy and planning manager without difficulty. Left Ventricle The left ventricle [...] 9:09 AM Patient Status: O/P Study Site: [facility] Primary Location: [facility] EStudy Info Exam Type: ECHO MARY COMPLETE Indications I63.9 - Cerebrovascular accident (CVA), unspecified mechanism (HCC) * A complete transesophageal echo was performed using 2D, color Doppler,and spectral Doppler. Staff Referring Physician: Sussy Kaur Ordering Provider: Sussy Kaur Attending Physician: Sussy Kaur Fellow: Breonna Perez Bracelet Form Coverer: Fior Franz Performing Physician: Edward Mcguire Complications [...] 5.6 <=5.6 % 11/16/2024 8:51 AM CDT [facility] Estimated Average Glucose 114 mg/dL 11/16/2024 8:51 AM CDT [facility] Comment: HbA1c Interpretation: Normal : < 5.7% Pre-diabetes: 5.7-6.4% Diabetes: Equal to or greater than 6.5% Test results diagnostic of diabetes should be repeated for confirmation. Treatment target values recommended by ADA and other clinical organizations should be used to evaluate metabolic control in patients. Reference: [place] Diabetes Association, Standards of Care in Diabetes [...] LAB - CHEMISTRY ORDERABLE S Final Result [facility] [address] [place] [address], [facility] [phone] * CT HEAD NON CONTRAST (11/15/2024 5:08 PM CDT) Anatomical Region Laterality Modality Head Computed Tomogra phy 11/15/2024 7:27 PM CDT Impressions 11/15/2024 8:38 PM CDT IMPRESSION: 1.No acute intracranial hemorrhage, midline shift, or significant mass effect. Report was dictated by Jamison Camp MD, ([facility] resident) 11/15/2024 7:27 PM > Dictated by Jamison Camp MD 11/15/2024 7:27 PM > Dictated by Sword Swallower IAna Laura MD have personally reviewed and interpreted this examination/study. > Interpreting Provider: Ana Laura Mahan MD on 11/15/2024 8:38 PM Narrative 11/15/2024 8:38 PM CDT PROCEDURE: CT HEAD WO CONTRAST, DATE/TIME OF EXAM: 11/15/2024 5:09 PM, LOCATION [facility] INDICATION: I63.9: Cerebrovascular accident (CVA), unspecified mechanism [...] OF EXAM: 11/15/2024 5:09 PM, LOCATION [facility] INDICATION: I63.9: Cerebrovascular accident (CVA), unspecified mechanism [...] MD 11/15/2024 7:27 PM > Dictated by Sword Swallower I, Ana Laura Mahan MD have personally [...] SENSITIVE REFLEX 1HOUR (11/14/2024 11:10 PM CDT) [facility] Troponin I High Sensitive <3 <=14 ng/L 11/15/2024 12:07 AM T [facility] Delta Troponin I HS 11/15/2024 12:07 AM T [facility] Comment:Delta value intentio sandor not calculated. Baseline to 1 hour specimen collection interval exceeded. Blood BLOOD SPECIMEN / Unknown Venipuncture / Unknown 11/14/2024 11:10 PM CDT 11/14/2024 11:33 PM CDT us Dustin Singh MD LAB - CHEMISTRY ORDERABLES Final Result [facility] [address] [place] [address], [facility] [phone] * LIPID PROFILE (11/14/2024 11:10 PM CDT) [facility] Cholesterol Total 138 <200 mg/dL 11/15/2024 12:02 AM CDT [facility] HDL 48 >40 mg/dL 11/15/2024 12:02 AM T [facility] Comment: ATP III Classification of HDL Cholesterol: <40 mg/dL: Considered a major risk factor. >60 mg/dL: Considered a negative risk factor. LDL Calculated 72 <100 mg/dL 11/15/2024 12:02 AM CDT [facility] Comment: ATP III Classification of LDL Cholesterol: <100 mg/dL: Optimal 100 - 129 mg/dL: Near Optimal/Above Optimal 130 - 159 mg/dL: Borderline High 160 - 189 mg/dL: High >190 mg/dL: Very High LDL is calculated using the Friedewald equation. Triglycerides 88 <150 mg/dL 11/15/2024 12:02 AM CDT [facility] Comment: ATP III Classification of Triglycerides: <150 mg/dL: Normal 150 - 199 mg/dL: Borderline High 200 - 400 mg/dL: High >500 mg/dL: Very High Blood BLOOD SPECIMEN / Unknown Venipuncture / Unknown 11/14/2024 11:10 PM CDT 11/14/2024 11:33 PM CDT Dustin Singh MD LAB - CHEMISTRY ORDERABLES Final Result [address] [address], [place] [phone] * TROPONIN-I HIGH SENSITIVE BASELINE + 1HR (11/14/2024 9:27 PM CDT) Troponin I High Sensitive <3 <=14 ng/L 11/14/2024 10:44 PM CDT [facility] Blood BLOOD SPECIMEN / Unknown Venipuncture / Unknown 11/14/2024 9:27 PM CDT 11/14/2024 10:04 PM CDT Dustin Singh MD LAB - CHEMISTRY ORDERABLES Final Result [address] [address], [place] [phone] * XR CHEST 1VW PORTABLE (11/14/2024 8:37 [...] <3 <=14 ng/L 11/14/2024 8:56 PM CDT [facility] Blood BLOOD SPECIMEN / Unknown Venipuncture / Unknown 11/14/2024 8:14 PM CDT 11/14/2024 8:20 PM CDT Ayden Alba MD LAB - CHEMISTRY ORDERABLES F inal Result [facility] [address] [place] [address], [place] [phone] * PTT (11/14/2024 8:14 PM CDT) APTT 29.6 23.0 - 38.4 Seconds 11/14/2024 8:44 PM CDT [facility] Comment:Suggested therapeuti c range for full dose I.V. unfractionated heparin therapy for venous thromboembolism is 71 to 109 seconds. Blood BLOOD SPECIMEN / Unknown Venipuncture / Unknown 11/14/2024 8:14 PM CDT 11/14/2024 8:20 PM CDT Ayden Alba MD LAB - COAGULATION ORDERABLES Final Result Performing Organization Address City/[facility] [place]/ZIP Co de Phone Number [address] [address], [facility] [phone] * PT-INR (11/14/2024 8:14 PM CDT) [facility] PT 12.6 12.1 - 14.8 Seconds 11/14/2024 8:44 PM CDT [facility] INR 1.0 See Comment 11/14/2024 8:44 PM CDT [facility] Comment:The suggested therap eutic range for standard coumadin (warfarin) therapy is an INR of 2.0-3.0. For high-risk patients (Mechanical Mitral Valve Prosthesis, etc.), the suggested prophylactic therapeutic range is an INR of 2.5-3.5. Blood BLOOD SPECIMEN / Unknown Venipuncture / Unknown 11/14/2024 8:14 PM CDT 11/14/2024 8:20 PM CDT Ayden Alba MD LAB - COAGULATION ORDERABLES Final Result [address] [address], [facility] [phone] * CBC W AUTO DIFFERENTIAL (11/14/2024 8:14 PM CDT) Pathologist [facility] WBC 7.4 4.0 - 10.7 x10E9/L 11/14/2024 8:28 PM [facility] RBC Count 4.34 3.90 - 5.20 x10E12/L 11/14/2024 8:28 PM [facility] Hemoglobin 12.5 11.9 - 15.8 g/dL 11/14/2024 8:28 PM [facility] Hematocrit 37.9 34.8 - 46.1 % [...] MD LAB - HEMATOLOGY ORDERABLES Final Result [facility] [address] [place] [id number], [facility] [phone] * (ABNORMAL) COMPREHENSIVE METABOLIC PANEL (11/14/2024 8:14 [...] 40 - 150 U/L 11/14/2024 8:52 PM [facility] ALT 23 5 - 55 U/L 11/14/2024 8:52 PM [facility] AST 17 5 - 34 U/L 11/14/2024 8:52 PM [facility] Anion Gap 7 6 - 16 11/14/2024 8:52 PM [facility] BUN/Creatinine Ratio 15 7 - 23 11/14/2024 8:52 PM [facility] Osmolality Calculated 289 275 - 295 mOsm/kg 11/14/2024 8:52 PM [facility] Albumin/Globulin Ratio 1.2 1.1 - 2.3 11/14/2024 8:52 PM [facility] eGFR by CKD-EPI >90 >=90 mL/min/1.7 3 m2 11/14/2024 8:52 PM [facility] Comment:Estimated Glomerular Filtration Rate (eGFR) calculated using the CKD-EPI Creatinine Equation (2020), per the National Kidney Foundation and [place] [employer]ph[employer] recommendations. Blood BLOOD SPECIMEN / Unknown Venipuncture / Unknown 11/14/2024 8:14 PM CDT 11/14/2024 8:20 PM CDT us Ayden Alba MD LAB - CHEMISTRY ORDERABLES F inal Result [address] [address], [facility] [phone] * CT ANGIO BRAIN NECK STROKE (11/14/2024 [...] OF EXAM: 11/14/2024 8:04 PM, LOCATION [facility] INDICATION: R53.1: Weakness ADDITIONAL CLINICAL INFORMATION: Ordering [...] DATE/TIME OF EXAM: :04 PM, LOCATION [facility] INDICATION: R53.1: Weakness ADDITIONAL CLINICAL INFORMATION: Ordering [...] without significant focal stenosis. 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 The remaining right [...] OF EXAM: 11/14/2024 7:45 PM, LOCATION [facility] INDICATION: R53.1: Weakness EXAMINATION: Computed tomography (CT) [...] OF EXAM: 11/14/2024 7:45 PM, LOCATION [facility] INDICATION: R53.1: Weakness EXAMINATION: Computed tomography (CT) [...] Final Result from Last 3 Months Insurance [facility] Advance Directives * Full Code (Latest Code Status on File) Date Activated Date Inactivated Comments 01/26/2025 1:27 PM 01/27/2025 11:21 AM * Full Code Date Activated Date Inactivated Comments 11/14/2024 8:18 PM 11/16/2024 7:33 PM Care Teams Medical Claims Analyst Relationship Specialty Start Date End Date Herb Tate, BOOKMAKER MAP-DISTRICT MANAGER [employer] [address] [place] [id number] PCP - General Nurse Practitioner 11/14/24
--- OUTSIDE RECORDS SUMMARY | 2025-01-27 14:11 | XMS_ITS | Clinical Summary ---
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
--- OUTSIDE RECORDS SUMMARY | 2025-01-27 14:11 | XMS_ITS ---
Author Organization Unknown Address [place], [place] [id number] Phone Care Team Providers Care Income Tax Return Preparer Name Role Phone ORQUIDEA HERRERA Attending Unavailable [...] LEVEL - Collect Peter e/Time: 11/01/2024 22:06 [facility] [id number] [address] [place] [address], [phone] LOINC: 95305-9 Test Value Unit Reference Range Code Code System Flag TROPONIN < 0.012 ng/mL L=0.000 H=0.033 99701-0 LOINC 4 PLEX RESPIRATORY COVID FLU RSV PCR - Collect Date/Time: 11/01/2024 18:13 [facility] [id number] [place] [address], [phone] LOINC: 02767-5 Test Value Unit Reference Range Code Code System Flag SARS CoV2 PCR NEGATIVE 31781-2 LOINC FLU A PCR NEGATIVE FLU B PCR NEGATIVE RSV PCR NEGATIVE SEND TO [facility]? NO URINALYSIS w/Microscopy/C&S if indicated - Collect Date/Time: 11/01/2024 17:48 [facility] [id number] [address] [place], [place], [phone] LOINC: 61250-5 Test Value Unit Reference Range Code Code System Flag UR SOURCE VOIDED 15659-3 LOINC COLOR YELLOW YELLOW 5778-6 LOINC CLARITY SL CLOUDY CLEAR 53803-3 LOINC SPEC GRAVITY <=1.005 1.000-1.030 5811-5 LOINC PH 6.0 5.0 - 6.5 5803-2 LOINC LEUK EST 1+ NEGATIVE 5799-2 LOINC A NITRATE NEGATIVE NEGATIVE PROTEIN NEGATIVE NEGATIVE 5804-0 LOINC GLUCOSE NEGATIVE NEGATIVE 62306-6 LOINC KETONES NEGATIVE NEGATIVE 78239-9 LOINC UROBILINOGEN 0.2 0.2 - 1.0 5818-0 LOINC BILIRUBIN NEGATIVE NEGATIVE 82954-1 LOINC BLOOD NEGATIVE NEGATIVE 13463-5 LOINC WBC 5-10 0 - 2 65062-6 LOINC A RBC 0-2 0 - 2 68607-4 LOINC SQ EPITHELIAL MODERATE RARE-FEW BACTERIA NONE SEEN NONE SEEN 80712-4 LOINC MUCUS NONE SEEN NONE SEEN 8247-9 LOINC YEAST NOT PRESENT NOT PRESENT 27108-5 LOINC TRICHOMONAS NOT PRESENT NOT PRESENT 08890-6 LOINC SPERMATOZOA NOT PRESENT NOT PRESENT 67497-2 LOINC CASTS NOT PRESENT 40749-1 LOINC CRYSTALS NOT PRESENT 15787-5 LOINC CULTURE? NO 8251-1 LOINC DIAGNOSIS N/A URINE DRUG SCREEN 12 PANEL R APID - Collect Date/Time: 11/01/2024 17:48 [facility] [id number] [address] [place], [place], [phone] LOINC: Test Value Unit Reference Range Code Code System Flag THC NEGATIVE PCP NEGATIVE COCAINE NEGATIVE 49059-8 LOINC METHAMPHETAMINES NEGATIVE OPIATES POSITIVE A AMPHETAMINES NEGATIVE 36019-9 LOINC BENZO POSITIVE 55197-1 LOINC A TCA NEGATIVE METHADONE NEGATIVE BARBITUATES NEGATIVE OXYCODONE NEGATIVE FENTANYL NEGATIVE CBC W/ DIFF - Collect Date/T ellen: 11/01/2024 17:33 [facility] [id number] [address] [place], [place], [phone] LOINC: 27063-0 Test Value Unit Reference Range Code Code System Flag WBC 7.3 10^3uL L=4.0 H=10.5 RBC 4.09 10^6uL L=4.20 H=5.40 L HEMOGLOBIN 11.6 g/dL L=12.0 H=16.0 718-7 LOINC L HEMATOCRIT 36.2 VOL% L=37.0 H=47.0 4544-3 LOINC L MCV 88.5 fL L=81.0 H=99.0 MCH 28.4 pg L=27.0 H=32.0 MCHC 32.0 g/dL L=32.0 H=36.0 PLATELETS 291 10^3uL L=100 H=400 72262-0 LOINC RDW 13.4 % L=11.7 H=15.5 %GRAN 59.8 % L=40.0 H=70.0 59504-6 LOINC %LYMPH 30.1 % L=20.0 H=45.0 736-9 LOINC %MONO 6.7 % L=2.0 H=10.0 75098-9 LOINC %EOS 3.0 % L=0.0 H=6.0 713-8 LOINC %BASO 0.3 % L=0.0 H=3.0 706-2 LOINC #NEUT 4.4 10^3uL L=1.9 H=7.6 75692-4 LOINC #LYMPH 2.2 10^3uL L=0.9 H=4.9 82593-6 LOINC #MONO 0.5 10^3uL L=0.1 H=0.9 97666-4 LOINC #EOS 0.2 10^3uL L=0.0 H=0.6 712-0 LOINC #BASO 0.02 10^3uL L=0.00 H=0.10 64538-4 LOINC #IM GRANS 0.0 10^3uL L=0.0 H=7.0 03752-1 LOINC %IM GRANS 0.1 % L=0.0 H=5.0 25560-5 LOINC %NRB 0.0 L=0.0 H=0.2 71569-1 LOINC #NRB 0.000 L=0.000 H=0.012 53889-9 LOINC MANUAL DIFF NOT INDICATED RBC MORPH NOT INDICATED MAGNESIUM - Collect Date/Adrian e: 11/01/2024 17:33 [facility]OSP[facility] ID: [id number] [address] [place] [address], [phone] LOINC: 11948-2 Test Value Unit Reference Range Code Code System Flag MAGNESIUM 1.8 mg/dL L=1.6 H=2.3 45118-4 LOINC CPK - Collect Date/Time: 17:33 [facility]OSP[facility] ID: [id number] [address] [place] [address], [phone] LOINC: 2157-6 Test Value Unit Reference Range Code Code System Flag CPK 90 U/L L=30 H=170 7-6 LOINC LACTIC ACID - Collect Date/T ellen: 11/01/2024 17:33 [facility] ID: [id number] [address] [place] [address], [phone] LOINC: 92612-8 Test Value Unit Reference Range Code Code System Flag LACTIC ACID 1.3 mmol/L L=0.7 H=2.6 52548-1 LOINC AMYLASE - Collect Date/Time: 11/01/2024 17:33 [facility]OS[facility] ID: [id number] [address] [place] [address], [phone] LOINC: 1798-8 Test Value Unit Reference Range Code Code System Flag AMYLASE 53 U/L L=30 H=110 1798-8 LOINC LIPASE - Collect Date/Time: 11/01/2024 17:33 [facility]OS[facility] ID: [id number] [address] [place] [address], [id number] LOINC: 3040-3 Test Value Unit Reference Range Code Code System Flag LIPASE 63 U/L L=23 H=300 3040-3 LOINC PROTIME - Collect Date/Time: 11/01/2024 17:33 [facility]OS[facility] ID: [id number] [address] [place] [address], [id number] LOINC: 83595-0 Test Value Unit Reference Range Code Code System Flag PT 9.7 Sec L=9.6 H=11.5 04351-7 LOINC INR 0.9 Sec L=0.9 H=1.1 20611-0 LOINC D DIMER - Collect Date/Time: 11/01/2024 17:33 [facility]OSP[facility] ID: [id number] [address] [place] [address], [phone] LOINC: Test Value Unit Reference Range Code Code System Flag DDIMER 0.44 mg/L FEU L=0.00 H=0.50 PRO BNP - Collect Date/Time: 11/01/2024 17:33 [facility]OSP[facility] ID: [id number] [address] [place] [address], [phone] LOINC: 13628-1 Test Value Unit Reference Range Code Code System Flag Pro BNP2 30 pg/mL L=0 H=900 83413-2 LOINC COMPREHENSIVE METABOLIC PANE L - Collect Date/Time: 11/01/2024 17:33 [facility]OSP[facility] ID: [id number] [place], [place], [phone] LOINC: 98809-2 Test Value Unit Reference Range Code Code [...] 2028-9 LOINC ANION GAP 10 L=10 H=20 97758-2 LOINC OSMOLALITY 289 mOs/kG L=280 H=296 46904-3 LOINC BUN/CREAT 18.3 3097-3 LOINC CALCIUM 9.1 mg/dL L=8.3 H=10.5 80383-5 LOINC AST 29 U/L L=15 H=46 1920-8 LOINC ALT 25 U/L L=9 H=72 1742-6 LOINC ALKALINE PHOS 109 U/L L=38 H=126 6768-6 LOINC TOTAL BILI 0.3 mg/dL L=0.2 H=1.3 1975-2 LOINC ALBUMIN 4.0 G/dL L=3.5 H=5.0 1751-7 LOINC TOTAL PROTEIN 6.6 g/L L=6.3 H=8.2 2885-2 LOINC A/G RATIO 1.5 79294-4 LOINC AGE 59 98917-1 LOINC eGFR NON-AFR 109 ml/min eGFR AFR AMER 132 ml/min TROPONIN LEVEL - Collect Peter e/Time: 11/01/2024 17:33 [facility] [id number] [address] [place], [place], [phone] LOINC: 88814-5 Test Value Unit Reference Range Code Code System Flag TROPONIN < 0.012 ng/mL L=0.000 H=0.033 02715-1 LOINC CHEST 1V - Completed: 2024 18:32 LOINC: \TM00\\12PI\\DRAo\\BM09\ \MRHo\ [place] [id number] [place] [address] ---------NAME--------- NUMBER SEX AGE ADMIT DISC. XRAY# F/C TYPE EMILIANO LYNN STERLING [id number] F 59 11/01/24 88370 XB7 E.R. DATE OF : 1965 M/R# [id number] #: [id number] ED-31 [facility] LOCATION: TRANSCRIBED: 11/01/24 19:19 CHEST 1V 91633 COMPLETED:11/01/24 18:32 [facility] [id number] Chest Pain PHYSICIAN: ORQUIDEA Maya R A [...] congestion and/or viral pneumonia. Clinical correlation advised. LITY PLANNER \ITLo\ \UNDo\ \UNDx\ \ITLx\ Reviewed and Electronically Signed by: Scout Mcclellan MD Signed Date: 11/01/24 19:19 CHEST 2V - Completed: 2024 21:39 LOINC: \TM00\\12PI\\DRAo\\BM09\ \MRHo\ [address] [address] ---------NAME--------- NUMBER SEX AGE ADMIT DISC. XRAY# F/C TYPE EMILIANO STERLING [id number] F 59 11/01/24 77907 XB7 E.R. DATE OF : 1965 M/R# [id number] #: [id number] ED-31 \[facility]\ LOCATION: TRANSCRIBED: 11/01/24 21:40 CHEST 2V 16907 COMPLETED:11/01/24 21:39 MRP [id number] Chest Pain PHYSICIAN: ORQUIDEA Maya R A D I O L O G Y R E P O R T CHEST 2V INDICATION: Chest Pain TECHNIQUE: Two views of the chest COMPARISON: CHEST 1V on DOS: 11/01/24 FINDINGS/IMPRESSION: LUNGS: No pleural effusion, consolidation, or pneumothorax. Peripheral interstitial edema. MEDIASTINUM: Unremarkable BONES: No acute osseous abnormality OTHER: None LITY PLANNER \ITLo\ \UNDo\ \UNDx\ \ITLx\ Reviewed and Electronically Signed by: DCTFE WINN Signed Date: SIGNDATE US VENOUS LEFT LE - Complete d: 11/01/2024 19:13 LOINC: 99860-7 \TM00\\12PI\\DRAo\\BM09\ \MRHo\ [address] [address] ---------NAME--------- NUMBER SEX AGE ADMIT DISC. XRAY# F/C TYPE EMILIANO LYNN STERLING [id number] F 59 11/01/24 92181 XB7 E.R. DATE OF : 1965 M/R# [id number] #: [id number] ED-31 \[facility]\ LOCATION: TRANSCRIBED: 11/01/24 19:16 [place] [address] COMPLETED:11/01/24 19:13 MRP [id number] LEG SWELLING;Chest Pain PHYSICIAN: ORQUIDEA Maya R [...] THROMBOSIS IN THE LEFT LOWER EXTREMITY VEINS. LITY PLANNER \ITLo\ \UNDo\ \UNDx\ \ITLx\ Reviewed and Electronically Signed by: Scout Mcclellan MD Signed Date: 11/01/24 19:16 Social History Type Status Start Date End Date Code Code Syst em Smoking History Current every day smoker [id number] SNOMED CT Sex Female Hospital Discharge Instructions Should you have any questions prior to discharge, please contact a member of your healthcare team. If you have left the hospital and have any questions, please contact your primary care physician. Reason For Referral No Data Found Allergies and Adverse Reactions Allergy Substance Reaction Severity Start Date Concern Status Co de Code System CYCLOBENZAPRINE Active 11034 RxNorm PENICILLIN Active Plan of Treatment No Data Found Encounters Encounter Diagnosis Start Date Code Code Sys tem Other chest pain 11/01/2024 SNOMED-CT Personal Care Team Section Performer Name Performer Role Active Date Inactive Rohan Vicente PCP - Primary care physician 2024-01-04 2024-01-04 Imaging Narrative Notes [facility] 11/01/2024 19:[address] [address] ---------NAME--------- NUMBER SEX AGE ADMIT DISC. XRAY# F/C TYPE EMILIANO STERLING [id number] F 59 11/01/24 86593 XB7 E.R. DATE OF : 1965 M/R# [id number] #: [id number] ED-31 LOCATION: TRANSCRIBED: 11/01/24 19:19 CHEST 1V 12235 COMPLETED:11/01/24 18:32 MRP [id number] Chest Pain PHYSICIAN: ORQUIDEA Maya RADIOLOGY REPORT CHEST RADIOGRAPH Indication: Chest Pain Technique: Single frontal view of the chest was obtained COMPARISON: None FINDINGS: Lines and Tubes: None Lungs: Congestion Pleura: No effusion. No pneumothorax. Cardiomediastinal contours: Unremarkable Bones: Unremarkable IMPRESSION: Increased interstital prominence. This may represent pulmonary vascular congestion and/or viral pneumonia. Clinical correlation advised. LITY PLANNER Reviewed and Electronically Signed by: Scout Mcclellan MD Signed Date: 11/01/24 19:19 [facility] 11/01/2024 21:[address] [address] ---------NAME--------- NUMBER SEX AGE ADMIT DISC. XRAY# F/C TYPE EMILIANO STERLING [id number] F 59 11/01/24 04784 XB7 E.R. DATE OF : 1965 M/R# [id number] #: [id number] ED-31 LOCATION: TRANSCRIBED: 11/01/24 21:40 CHEST 2V 23212 COMPLETED:11/01/24 21:39 MRP [id number] Chest Pain PHYSICIAN: ORQUIDEA G RADIOLOGY REPORT CHEST 2V INDICATION: Chest Pain TECHNIQUE: Two views of the chest COMPARISON: CHEST 1V on DOS: 11/01/24 FINDINGS/IMPRESSION: LUNGS: No pleural effusion, consolidation, or pneumothorax. Peripheral interstitial edema. MEDIASTINUM: Unremarkable BONES: No acute osseous abnormality OTHER: None LITY PLANNER Reviewed and Electronically Signed by: KHRIS WINN Signed Date: SIGNDATE [facility] 11/01/2024 19:19 [facility] [address] [place] [address] ---------NAME--------- NUMBER SEX AGE ADMIT DISC. XRAY# F/C TYPE EMILIANO STERLING [id number] F 59 11/01/24 97501 XB7 E.R. DATE OF : 1965 M/R# [id number] #: [id number] ED-31 LOCATION: TRANSCRIBED: 11/01/24 19:16 [place] [address] COMPLETED:11/01/24 19:13 [facility] [address] LEG SWELLING;Chest Pain PHYSICIAN: ORQUIDEA G RADIOLOGY [...] THROMBOSIS IN THE LEFT LOWER EXTREMITY VEINS. LITY PLANNER Reviewed and Electronically Signed by: Scout Mcclellan MD Signed Date: 11/01/24 19:16
--- NOTE | 2025-01-27 14:45 | PC.NURSE ---
RN walks pt at bedside. Pt no longer c/o feeling dizzy. Pt ambulates with even, steady gait. Pt informed of follow-up appointment with MD Vincent in clinic tomorrow morning.
== END 2025-01-27 15:12 | disposition home or self-care (01) ==
PROVIDERS: Emergency Provider Emergency Medicine; PCP Nurse Practitioner Family
DX: G89.18 Other acute postprocedural pain (principal); I11.0 Hypertensive heart disease with heart failure; I50.9 Heart failure, unspecified; E11.9 Type 2 diabetes mellitus without complications; J44.9 Chronic obstructive pulmonary disease, unspecified; Z87.891 Personal history of nicotine dependence
CPT/HCPCS: 93926; 99284